=== PATIENT | male | born 1935 | race Caucasian/White ===

== ENCOUNTER 2017-06-29 05:31 | Inpatient (IN) | payer MEDICARE, SELFPAY ==
[2017-06-29] VITALS (19 sets, daily range): BP systolic 129–149; BP diastolic 71–94; PULSE 68–76; RESP 15–24; TEMP 36.5–36.8; O2SAT 97–99; BMI 32.9; BMI 31.4
--- NOTE | 2017-06-29 05:34 | EKG12_ITS ---
Test Reason : TIA/CVA Blood Pressure : / mmHG Vent. Rate : 071 BPM Atrial Rate : 035 BPM P-R Int : 000 ms QRS Dur : 166 ms QT Int : 522 ms P-R-T Axes : 000 -58 110 degrees QTc Int : 567 ms Ventricular-paced rhythm with occasional Premature ventricular complexes Abnormal ECG Confirmed by FRANC LUCAS, DAVY ([id number]), editorial writer DARIEL IRELAND ([id number]) on 07/01/2017 1:51:49 PM Referred By: MISHA Confirmed By:DAVY BRUNER MD
--- NOTE | 2017-06-29 05:34 | CT_ITS ---
STUDY: CT BRAIN WITHOUT CONTRAST REASON FOR EXAM: Male, 81 years old. Slurred speech RADIATION DOSAGE (If Supplied By Facility): CTDIvol = ( 44.99 ) mGy, DLP = ( 815.79 ) mGycm TECHNIQUE: Transaxial CT imaging of the brain was performed without administration of intravenous contrast material. Individualized dose optimization techniques were used for this CT. COMPARISON: None. FINDINGS: Normal soft tissue structures. Normal calvarium. Normal size ventricles and extra-axial spaces for the patient's age. Normal white matter tracts of the cerebral hemispheres. Normal basal ganglia and thalami. Normal brainstem. Normal cerebellum. There is no intracranial hemorrhage. There are no findings of an acute ischemic infarction. Inflammatory changes in the right frontal, right ethmoid air cells, both maxillary sinuses in the right sphenoid sinus CT/Brain/Head without Contrast IMPRESSION: No acute findings in the brain. Inflammatory changes in the paranasal sinuses Electronically Signed: Patrick Israel, at 6:47 EST Tel , Service support ,
--- NOTE | 2017-06-29 05:42 | ED.VISSUMM ---
- ER Visit Summary Date of Service: 06/29/17 Chief Complaint: Strokelike symptoms History of Present Illness: The patient is a 81 M with significant cardiac history including atrial fibrillation who is anticoagulated on Pradaxa presents to the emergency department with strokelike symptoms. The patient apparently woke at approximately 445 this morning. He had complained to his that he had a cramp in his leg. When he got out of bed to stand, he fell. He did not strike his head. She helped him up and he had significant clumsiness of his left arm. He also had slurred speech. He was having a difficult time ambulating because of weakness in his left leg also. Squad arrived. By the time squad had arrived, the patient had no symptoms per squad. Per the , his speech was markedly improved. He also had resolution of the weakness of his left side. The patient has no history of prior stroke. He has been in his normal state of health. He denies any recent change in his medications. Physical Examination: Vital signs reviewed General: Well-nourished, well-developed Head: Normocephalic, atraumatic Eyes: Pupils equal and reactive, extraocular muscles intact Neck, supple, no lymphadenopathy Heart: Regular rate and rhythm Respiratory: No distress, clear bilaterally Abdomen: Soft, nontender, nondistended, no peritoneal signs Back: Nontender Extremities: Nontender, no edema, no cords Skin: Normal color no rash Neuro: Alert and oriented, and has a mild left facial droop and mild dysarthria. There is no appreciable weakness. There is no ataxia or sensory deficit. His NIH is 2. Test Results: KG demonstrates paced rhythm. Labs relatively unremarkable. Chest x-ray shows mild cephalization and pulmonary edema. There is stable scarring at the left base unchanged from prior. Emergency Department Course and Treatment: The patient presents with symptoms of stroke. However, some of the symptoms have already improved. The patient was sent for immediate head CT. This shows no evidence of acute hemorrhage. Screening labs were obtained and reviewed. The patient has an NIH of 2. He did not meet criteria for stroke team activation or TPA especially as he is already fully anticoagulated on Pradaxa. Patient did have some waxing and waning of symptoms with some increased ataxia of the left arm and transient confusion. At this time, I do feel that the patient will likely require admission for MRI and neurology consultation. Patient does have multiple stroke risk factors. Patient was discussed with the hospitalist and will be admitted. Treatment Plan: [] Disposition: Admission Impression: 1. Left-sided facial droop 2. Left arm weakness-resolved 3. Dysarthria This note was generated with [employer] dictation software. It may contain incorrect words, spelling, and punctuation that were not noted in review of the chart prior to signing ED Disposition - Plan for ED Patient: Chief Complaint: Neuro S/Sx Referrals: Torin Noyola MD [Primary Care Provider] -
[2017-06-29 05:45] LABS: Bedside Glucose 134 mg/dL (70-110)
--- NOTE | 2017-06-29 05:50 | RAD_ITS ---
STUDY: X-RAY CHEST REASON FOR EXAM: Male, 81 years old. Cough TECHNIQUE: One view COMPARISON: September 19, 2015 FINDINGS: There is cardiomegaly with an ICD in place. Median sternotomy wires are noted. There is central vascular congestion and a small left-sided pleural effusion. The right costophrenic angle is clear. Normal visualized thoracic spine. Normal visualized ribs, clavicles, and shoulders. There is no demonstrated abnormality of the visualized soft tissue structures of the upper abdomen. RAD/Chest 1 View IMPRESSION: Cardiomegaly with central vascular congestion and a small left-sided effusion. No pneumonia Electronically Signed: Patrick Israel, at 6:53 EST Tel , Service support ,
[2017-06-29 05:54] LABS: Absolute Lymphocyte Count 0.77 X10^3/ul (0.83-4.51); Absolute Neutrophil Count 6.3 X10^3/uL (2.0-7.7); Basophil# 0.04 X10^3/uL; Basophil% 0.5 % (0-1); Eosinophil# 0.23 X10^3/uL; Eosinophils% 2.9 % (0-5); Hemoglobin 13.2 g/dl (13.0-16.5); Lymphocyte # 0.77 X10^3/ul (4.0); Lymphocyte % 9.7 % (19-41); Mean Corpuscular Hgb 30.8 pg (27.0-32.0); Mean Corpuscular Volume 93.2 fL (80-94); Mean Platelet Vol. 10.3 fl (6.2-12.0); Monocyte# 0.58 X10^3/uL; Monocyte% 7.3 % (0-10); Neutrophil % 79.5 % (47-70); Platelet Count 234 K/mm3 (150-450); RBC Distribution Width CV 13.9 % (11.6-14.6); RBC Distribution Width SD 45.8 fl (35.1-43.9); Red Blood Count 4.29 M/mm3 (4.6-6.2); White Blood Count 7.9 K/mm3 (4.4-11.0)
[2017-06-29 06:03] LABS: POSITIVE COUNT NO; POSITIVE DIFFERENTIAL NO; POSITIVE MORPHOLOGY NO
[2017-06-29 06:14] LABS: Prothrombin Time (Protime)PT. 12.9 SECONDS (11.7-14.9)
[2017-06-29 06:27] LABS: Anion Gap 8 (5-15); BUN 17 mg/dL (7-18); BUN/Creat Ratio 16.3 RATIO (10-20); Calcium,Total 8.4 mg/dL (8.5-10.1); Chloride 103 mmol/L (98-107); Creatinine, Serum 1.04 mg/dL (0.70-1.30); EST Glomerular Filtration Rate 73 mL/min (>60); Est Glom Filt Rate - Afr Amer 88 mL/min (>60); Estimated Creatinine Clearance 54.81 ml/min; Glucose 142 mg/dL (74-106); Potassium 4.2 mmol/L (3.5-5.1); Sodium Level 138 mmol/L (136-145)
--- NOTE | 2017-06-29 07:15 | PCM.HP.STD ---
Problem List (1) Hypertension Status: Chronic (2) Coronary artery disease Status: Chronic (3) Chronic atrial fibrillation Status: Chronic (4) Chronic anticoagulation Status: Chronic Comment: Pradaxa (5) GERD (gastroesophageal reflux disease) Status: Chronic (6) Obesity Status: Chronic (7) Systolic congestive heart failure Status: Chronic (8) Hyperbilirubinemia Status: Acute (9) COPD (chronic obstructive pulmonary disease) Status: Chronic (10) History of coronary artery bypass graft Status: Chronic Comment: 2004 (11) Hearing loss Status: Acute (12) Former smoker Status: Chronic (13) History of PTCA 1 Status: Acute Comment: Abdiel/Michelle (14) Hyperlipidemia Status: Chronic (15) Osteoarthritis Status: Chronic (16) Obstructive sleep apnea Status: Chronic Comment: on BIPAP (17) 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 He normally ambulates without an assistive device and has not had a problem with falls in the past. His tells me he fell in the kitchen and could not get up by himself. With the assistance of her grandson they were able to get him to a chair in the living room. When he got up from the chair without assistance he again fell. He could not use his inhaler because his left arm was weak. His granddaughter also noted he had slurred speech which has improved significantly since coming to the hospital. Denied any changes in vision. He was not confused. He had a right posterior headache. He denied any history of prior TIA or CVA. CT brain in the emergency room showed no acute findings. Vital signs at presentation to the emergency room were temperature 97.7, pulse rate 68, blood pressure 142/94, respiratory rate 21 and he was 97-99% saturated on room air. CBC and BMP were unremarkable. Random blood sugar was 142. Total bilirubin is elevated at 2.7 but this is chronic. AST, ALT and alk phos were within normal limits. Troponin ?2 has been negative. He admits to me that he does NOT take his ASA daily....he takes it PRN for neck pain. He has persistent LUE weakness and a mild left facial droop with mild dysarthria. He is being admitted to the hospital with a diagnosis of probable CVA. Past Medical History Past Medical History (Chronic Problems): Chronic Problems Hypertension (Chronic) Coronary artery disease (Chronic) Chronic atrial fibrillation (Chronic) Chronic anticoagulation (Chronic) Pradaxa GERD (gastroesophageal reflux disease) (Chronic) Obesity (Chronic) Systolic congestive heart failure (Chronic) COPD (chronic obstructive pulmonary disease) (Chronic) History of coronary artery bypass graft (Chronic) 2004 Former smoker (Chronic) Hyperlipidemia (Chronic) Osteoarthritis (Chronic) Obstructive sleep apnea (Chronic) on BIPAP AICD (automatic cardioverter/defibrillator) present (Chronic) Allergies Penicillins [PCN] Allergy (Verified 06/29/17 05:39) Rash Sulfa (Sulfonamide Antibiotics) Allergy (Verified 06/29/17 05:39) Rash Home Medications: Ambulatory Orders Medication Instructions Recorded Amlodipine [Norvasc] 5 mg PO DAILY 09/15/13 Atorvastatin Calcium [Lipitor] 80 mg PO QHS 09/15/13 Carvedilol [Carvedilol] 12.5 mg PO DAILY 09/15/13 Dabigatran Etexilate Mesylate 150 mg PO BID 09/15/13 [Pradaxa] Furosemide [Lasix] 20 mg PO DAILY 09/15/13 Lisinopril [Lisinopril] 40 mg PO DAILY 09/15/13 Sotalol HCl [Sotalol] 80 mg PO BID 09/15/13 Zolpidem Tartrate [Ambien] 5 mg PO QHS PRN PRN 09/15/13 Albuterol Inhaler [Ventolin Hfa] 1 - 2 puff INHALATION Q4H PRN PRN 07/20/15 #1 inhaler Mometasone/Formoterol [Dulera 200 8.8 gm IH DAILY 07/20/15 Mcg/5 Mcg Inhaler] Surgical History: cataract - Bilateral, cholecystectomy, coronary bypass surgery, herniorrhaphy - Left inguinal, pacemaker implantation - PM/AICD, - - PTCA/MATTHEW Psychiatric History: No pertinent psych hx Lives: Spouse/ Significant Other Smoking Status: Former smoker - quit in 1974 Tobacco Use: Non-smoker Alcohol: Occasional Drugs: None - *Family History Sibling History Items: Cancer - brother with prostate CA Review of Systems Constitutional: Denies: Anorexia, Chills, Fever Eyes: Denies: Blurred vision, Redness, Vision Change HEENT: Reports: Difficulty Hearing, Hard of Hearing, Head Aches - R posterior, - - vertigo which is episodic and is associated with tinnitus and hearing loss. Denies: Difficulty Swallowing, Dysphasia, Sore Throat, Visual Changes Cardiovascular: Reports: Paroxysmal Noc. Dyspnea. Denies: Chest Pain, Light Headedness, Palpitations, Syncope Respiratory: Denies: Cough, Shortness of Breath Gastrointestinal: Denies: Abdominal Pain, Nausea, Vomiting Genitourinary: Denies: Dysuria Musculoskeletal: Reports: Neck Pain - chronic and due to OA......no radiation of pain into the arms. Denies: Joint Pain, Joint Tenderness Skin: Denies: Jaundice, Rash, Wounds Neurological: Reports: Balance problems, Slurred speech, Focal weakness - L leg and the left arm. Denies: Numbness, Tingling, Seizures Psychiatric: Denies: Anxiety, Depression, Homicidal Ideations, Suicidal Ideations Endocrine: Denies: Change in Body Habitus, Hx of Irradiation Hematologic/ Lymphatic: Reports: Easy Bruising - on Pradaxa. Denies: Hx of blood clot VTE Information - Inpt Only VTE Present on Admission: No VTE Mechan Device Prophylaxis: Knee High BRYN Hose VTE Pharm Prophylaxis ordered?: No Reason prophylaxis not ordered:: Treatment Not Indicated - he is on full dose anticoagulation for AFIB Patient Problems: Active and Suspected Problems Hyperbilirubinemia (Acute) Hearing loss (Acute) History of PTCA 1 (Acute) Abdiel/[place] 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) Tinnitus, hearing loss and vertigo - Physical Exam General: Alert, Oriented x3, Cooperative, No apparent distress, Well developed, Well nourished HEENT: Atraumatic, PERRLA, EOMI, Normocephalic, - - mild droop Left corner of the mouth Oral: Dry Mucosa Neck: Supple, No JVD, Negative Carotid Bruits Lungs: Clear to auscultation, No rhonchi, No wheeze, No rales Cardiovascular: Normal S1, Normal S2, No murmurs, Irregular Rate, No rub noted, No Gallop Abdomen: Bowel Sounds Present, Soft, Non Tender, Non-Distended, Obese Extremities: No clubbing, No cyanosis, No edema Skin: No rashes, No breakdown Musculoskeletal: No Muscle Wasting Neurological: Facial Droop - left, - - He has weakness of the LUE 4/5 with LUE neglect Psych/Mental Status: Normal Affect, Appropriate Vital Signs Temp Pulse Resp BP Pulse Ox 97.7 F L 72 23 H 147/86 H 98 06/29/17 05:32 06/29/17 07:02 06/29/17 07:02 06/29/17 07:02 06/29/17 07:02 Oxygen Delivery Method Room Air Weight: 216 lb 11.43 oz Body Mass Index (BMI) 32.9 Finger Stick Blood Glucose 134 Laboratory Tests Past 24 Hrs 06/29/17 06/29/17 06/29/17 05:45 05:45 05:45 WBC 7.9 RBC 4.29 L Hgb 13.2 Hct 40.0 MCV 93.2 MCH 30.8 MCHC 33.0 RDW 13.9 RDW Differential 45.8 H Plt Count 234 MPV 10.3 Immature Gran % (Auto) 0.100 Neut % (Auto) 79.5 H Lymph % (Auto) 9.7 L [place] % (Auto) 7.3 Eos % (Auto) 2.9 Baso % (Auto) 0.5 Absolute Neuts (auto) 6.3 Absolute Lymphs (auto) 0.77 L Total Counted Not Reportable PT 12.9 INR 1.0 APTT 20.0 L Sodium 138 Potassium 4.2 Chloride 103 Carbon Dioxide 27.0 Anion Gap 8 BUN 17 Creatinine 1.04 Estim Creat Clear Calc 54.81 Est GFR (MDRD) Af Amer 88 Est GFR (MDRD) Non-Af 73 BUN/Creatinine Ratio 16.3 Glucose 142 H Calcium 8.4 L Troponin I < 0.02 POC Glucose 06/29/17 05:38 POC Glucose 134 H Assessment/Plan Active and Suspected Problems Hyperbilirubinemia (Acute) Hearing loss (Acute) History of PTCA 1 (Acute) Abdiel/[place] 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) Tinnitus, hearing loss and vertigo Impressions 1. 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 LUE weakness 3. CAD with hx of CABG in 2003 and PTCA/MATTHEW after the CABG 4. hx of [place] on the table during CABG, has chronic systolic CHF 5. PM/AICD presence - called about the PM and he CANNOT have MRI......no significant arterial stenosis on the CTA of the head or neck 6. GERD 7. chronic hyperbilirubinemia 8. HTN 9. dehydration 10. obesity ASA and Plavix for now and will discuss with Dr. 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
--- NOTE | 2017-06-29 08:25 | ECHOD_ITS ---
Reason For Study: TIA/CVA Procedure This was a 2D Doppler, Color Flow transthoracic echocardiogram. Exam performed in department. Left Ventricle Normal LV size. Mild concentric left ventricular hypertrophy. The estimated ejection fraction is 35 %. Moderate segmental systolic dysfunction (see wall motion). [place] : Akinetic. Posterior-Basal: Normal. Mid-Posterior: Normal. Global hypokinesis for rest of [place]. Right Ventricle Normal RV size. ICD or pacer leads identified within the right ventricle. Normal systolic function. Atria The left atrium is severely enlarged. The right atrium is mildly enlarged. Mitral Valve Normal mitral valve. Mild-Moderate (1-2+) eccentric mitral valve insufficiency. Tricuspid Valve Normal tricuspid valve. Mild to moderate (1-2+) tricuspid valve insufficiency. Pulmonary artery systolic pressure is 54 mmHg. Moderate pulmonary hypertension. Aortic Valve Trisinus/trileaflet aortic valve. Mild focal aortic valve calcification. Mild (1+) eccentric aortic valve insufficiency. Pulmonic Valve Normal pulmonic valve. Great Vessels Normal aortic root. The pulmonary artery is normal size. Normal inferior vena cava. Pericardium/Pleural No pericardial effusion. Medication Definity deferred due to PHTN. Performed a rapid injection of agitated mix of 9 cc saline and 1cc air to assess for atrial septal defect. MMode/2D Measurements & Calculations LVIDd: 6.3 cm IVSd: 1.3 cm LVOT diam: 2.2 cm LVIDs: 4.8 cm LVPWd: 1.3 cm LVOT area: 3.8 cm2 RVDd: 3.4 cm FS: 23.7 % Ao root diam: 3.4 cm LAV(MOD-bp): 151.6 ml LA A4 area: 44.8 cm2 LA dimension: 6.1 cm LAV(MOD-bp) Indexed: 71.8 ml/m2 LAV(MOD-sp2): 87.0 ml LAV(MOD-sp4): 203.3 ml RA A4 area: 26.3 cm2 Doppler Measurements & Calculations MV E max luis: 106.6 cm/sec Ao V2 max: 178.2 cm/sec LV V1 max: 100.7 cm/sec Ao max P.7 mmHg LV V1 max P.1 mmHg Ao V2 mean: 129.1 cm/sec LV V1 mean P.2 mmHg Ao mean P.3 mmHg LV V1 mean: 70.4 cm/sec Ao V2 VTI: 34.1 cm LV V1 VTI: 19.8 cm ABHIJEET(I,D): 2.2 cm2 ABHIJEET(V,D): 2.2 cm2 SV(LVOT): 75.8 ml PA V2 max: 77.6 cm/sec TR max luis: 347.3 cm/sec TR max P.3 mmHg Interpretation Summary Normal LV size. Mild concentric left ventricular hypertrophy. The estimated ejection fraction is 35 %. Mild-Moderate (1-2+) eccentric mitral valve insufficiency. Moderate pulmonary hypertension. Compared to the previous echo the EF is similar and the pulmonary pressures. Ordering Physician: Tiffany Lee Referring Physician: Torin Noyola M.D. Performed By: Antonette Colvin RDCS
--- NOTE | 2017-06-29 08:25 | CT_ITS ---
STUDY: CTA NECK WITH CONTRAST REASON FOR EXAM: Male, 81 years old. Slurred speech with left arm and left leg weakness. RADIATION DOSAGE (If Supplied By Facility): CTDIvol = ( 29.43 ) mGy, DLP = ( 813.80 ) mGycm TECHNIQUE: CT angiography with multi-detector data acquisition was performed from the aortic arch to the skull base following intravenous administration of 100 ml of Isovue 370 contrast. MIP images were reconstructed from the axial data set. Post-processing of the angiographic images was performed, with multiplanar reformation and 3D reconstruction. Individualized dose optimization techniques were used for this CT. COMPARISON: None. FINDINGS: AORTIC ARCH: There is atherosclerotic calcific plaque formation of the aortic arch and great vessels arising from the aortic arch, without a hemodynamically significant stenosis. There is a normal origin of the brachiocephalic, left common carotid, and left subclavian arteries. RIGHT CAROTID ARTERIES: Normal right common carotid artery (CCA). Normal right common carotid bulb. There is mild atherosclerotic plaque formation of the origin of the right internal carotid artery with less than 50% cross sectional diameter stenosis. Normal visualized cervical portion of the right internal carotid artery. Normal origin of the right external carotid artery (ECA). LEFT CAROTID ARTERIES: Normal left common carotid artery (CCA). Normal left common carotid bulb. There is mild atherosclerotic plaque formation of the origin of the left internal carotid artery with less than 50% cross sectional diameter stenosis. Normal visualized cervical portion of the left internal carotid artery. Normal origin of the left external carotid artery (ECA). VERTEBRAL ARTERIES: There is enhancement within the bilateral vertebral arteries with a small right vertebral artery, and a dominant left vertebral artery. There is opacification of the right sphenoid sinus as well as the right maxillary sinus and right ethmoid sinus. Opacification of the left maxillary sinus and partial opacification of the left ethmoid sinus. CT/CTA Neck W/WO Contrast IMPRESSION: Atherosclerotic calcific plaques at the origin of both the right and left internal carotid artery causing less than 50% narrowing. Pansinusitis. Electronically Signed: Geovany Pruett MD at 9:36 EST Tel [phone], Service support ,
--- NOTE | 2017-06-29 08:25 | CT_ITS ---
STUDY: CTA OF THE BRAIN REASON FOR EXAM: Male, 81 years old. Slurred speech. Left arm and left leg weakness. RADIATION DOSAGE (If Supplied By Facility): CTDIvol = ( 29.43 ) mGy, DLP = ( 813.80 ) mGycm TECHNIQUE: CT angiography was performed with a multi-detector CT scanner. Data acquisition was obtained from the skull base through the vertex following intravenous administration of ml of . MIP images were reconstructed from the axial data set. Post-processing of the angiographic images was performed, with multiplanar reformation and 3D reconstruction. Individualized dose optimization techniques were used for this CT. COMPARISON: None. FINDINGS: Normal bilateral petrous carotid arteries. There is calcified plaque formation of the right cavernous carotid artery, without a cross-sectional luminal stenosis. There is calcified plaque formation of the left cavernous carotid artery, without a cross-sectional luminal stenosis. Normal right A1 segments of the anterior cerebral artery. Normal left A1 segments of the anterior cerebral artery. Normal intact anterior communicating artery (ACOM). Normal bilateral A2 segments of the anterior cerebral arteries. Normal right M1 and M2 segments of the middle cerebral arteries, with a normal M1 bifurcation. Normal left M1 and M2 segments of the middle cerebral arteries, with a normal M1 bifurcation. Normal right posterior communicating artery (PCOM). Normal left posterior communicating artery (PCOM). Normal bilateral vertebral arteries. Normal basilar artery with a normal basilar bifurcation. The visualized bilateral superior cerebellar (SCA) arteries are normal. Normal bilateral P1, P2 and visualized P3 segments of the posterior cerebral arteries. There is no demonstrated aneurysm of the [place]. Pansinusitis. CT/CTA Head W/WO Contrast IMPRESSION: Normal [place] without a demonstrated aneurysm or hemodynamically significant stenosis. Pansinusitis. Electronically Signed: Geovany Pruett MD at 9:38 EST Tel [phone], Service support ,
[2017-06-29 09:11] LABS: AST(SGOT) 24 U/L (15-37); Alanine Aminotransfer ALT/SGPT 22 U/L (16-61); Albumin, Serum 3.5 g/dL (3.2-5.0); Alkaline Phosphatase 86 U/L (45-117); Bilirubin, Direct 0.35 mg/dL (0.00-0.30); Cholesterol 109 mg/dL (200); Globulin 3.6 g/dL (2.2-4.2); High Density Lipoprotein 51 mg/dL; Protein, Total 7.1 g/dL (6.4-8.2); Thyroid Stim Hormone (TSH) 5.19 uIU/mL (0.358-3.74); Triglycerides 115 mg/dL; Very Low Density Lipoprotein 23 mg/dL (5-40)
[2017-06-29] MEDS: 0.9% NaCl Peripheral Flush Adult/Peds IV (10:34)
[2017-06-29] MEDS: 0.9% Normal Saline 1,000 ML 100 ML IV (10:34)
[2017-06-29] MEDS: Aspirin 81 MG TAB.CHEW PO (10:56)
[2017-06-29] MEDS: Clopidogrel Bisulfate 75 MG Tablet PO (10:57)
[2017-06-29] MEDS: Sotalol Hydrochloride 80 MG Tablet PO ×2 (10:57→21:06)
[2017-06-29] MEDS: Carvedilol 12.5 MG Tablet PO ×2 (10:57→21:06)
[2017-06-29] MEDS: Enoxaparin 100 MG/ML Syringe SC ×2 (11:01→21:09)
[2017-06-29 13:11] LABS: LDH 173 U/L (87-241)
[2017-06-29 13:44] LABS: Hemoglobin A1c 6.1 % (4.2-6.3)
[2017-06-29] MEDS: Albuterol 2.5 MG/3 ML VIAL.NEB. INHALATION ×2 (13:45→21:00)
--- NOTE | 2017-06-29 14:32 | CASEMGMT ---
See RN CM Assessment Link. DC PLAN: return home pending PT/OT recommendations. is able to assist with care needs and transportation. Per , pt was independent prior to admission, is now using a cane for ambulation. Marco BARAKAT RN AC
--- NOTE | 2017-06-29 14:32 | PCM.CONS.GEN ---
Problem List (1) Difficulty walking Status: Acute (2) Speech disturbance Status: Acute Qualifiers: Speech disturbance type: slurred speech Qualified Code(s): R47.81 - Slurred speech (3) TIA (transient ischemic attack) Status: Acute Qualifiers: Transient cerebral ischemia type: unspecified Qualified Code(s): G45.9 - Transient cerebral ischemic attack, unspecified Reason for Consult Date of Consultation: 06/29/17 Reason for Consultation: TIA, slurred speech and difficulty walking, fall History of Present Illness: The patient is a 81 year old CM with PMH HTN, HLD, Afib on Pradaxa, CAD s/p stents, CABG, s/p AICD, COPD, OTILIA admitted following a fall, with slurred speech and difficulty walking. Per patient and his , patient got up this morning, had a fall in the kitchen, was later put on the bed by his and grandson, noticed there was slurred speech, he was wobbly and had difficulty walking and later had another fall in the living room, following which paramedics were called. Per ED documentation NIHSS was 2 on admission, his symptoms have continued to improve and at present his speech is almost back to his baseline and was able to ambulate with the cane per patient. At baseline he does not use cane or walker to ambulate, denies any falls, does not need any assistance for his ADLs, does drive. He is on Pradaxa for AFib, has been on the same for many years, he has told to take ASA but takes it as needed and may sometimes forget to take Pradaxa. CT head done on admission reported nothing acute, CTA head/neck reported < 50% stenosis B/L ICA. [] Past Medical History Past Medical History (Chronic Problems): Chronic Problems Hypertension (Chronic) Coronary artery disease (Chronic) Chronic atrial fibrillation (Chronic) Chronic anticoagulation (Chronic) Pradaxa GERD (gastroesophageal reflux disease) (Chronic) Obesity (Chronic) Systolic congestive heart failure (Chronic) COPD (chronic obstructive pulmonary disease) (Chronic) History of coronary artery bypass graft (Chronic) 2003 Former smoker (Chronic) Hyperlipidemia (Chronic) Osteoarthritis (Chronic) Obstructive sleep apnea (Chronic) on BIPAP AICD (automatic cardioverter/defibrillator) present (Chronic) Allergies Penicillins [PCN] Allergy (Verified 06/29/17 05:39) Rash Sulfa (Sulfonamide Antibiotics) Allergy (Verified 06/29/17 05:39) Rash Home Medications: Ambulatory Orders Medication Instructions Recorded Amlodipine [Norvasc] 5 mg PO DAILY 09/15/13 Atorvastatin Calcium [Lipitor] 80 mg PO QHS 09/15/13 Carvedilol [Carvedilol] 12.5 mg PO DAILY 09/15/13 Dabigatran Etexilate Mesylate 150 mg PO BID 09/15/13 [Pradaxa] Furosemide [Lasix] 20 mg PO DAILY 09/15/13 Lisinopril [Lisinopril] 40 mg PO DAILY 09/15/13 Sotalol HCl [Sotalol] 80 mg PO BID 09/15/13 Zolpidem Tartrate [Ambien] 5 mg PO QHS PRN PRN 09/15/13 Albuterol Inhaler [Ventolin Hfa] 1 - 2 puff INHALATION Q4H PRN PRN 07/20/15 #1 inhaler Mometasone/Formoterol [Dulera 200 8.8 gm IH DAILY 07/20/15 Mcg/5 Mcg Inhaler] Surgical History: cataract - Bilateral, cholecystectomy, coronary bypass surgery, herniorrhaphy - Left inguinal, pacemaker implantation - PM/AICD, - - PTCA/MATTHEW Psychiatric History: No pertinent psych hx Lives: Spouse/ Significant Other Smoking Status: Former smoker - quit in 1974 Tobacco Use: Non-smoker Alcohol: Occasional Drugs: None - *Family History Sibling History Items: Cancer - brother with prostate CA Review of Systems Constitutional: Reports: - - complete ROS negative except as documented in HPI Patient Problems: Active and Suspected Problems Hyperbilirubinemia (Acute) Hearing loss (Acute) History of PTCA 1 (Acute) Abdiel/[place] 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) Tinnitus, hearing loss and vertigo Difficulty walking (Acute) Speech disturbance (Acute) TIA (transient ischemic attack) (Acute) - Physical Exam General: Alert, Oriented x3, Cooperative HEENT: Atraumatic, PERRLA, EOMI, Normocephalic Neck: Supple, No JVD, Negative Carotid Bruits Lungs: Clear to auscultation, Normal air movement Cardiovascular: Regular rate Abdomen: Bowel Sounds Present, Soft, Non Tender Extremities: No edema, Capillary Refill Less than 3 Seconds Skin: No rashes, No breakdown Musculoskeletal: No Tenderness to Palpation of Joints or Extremities Neurological: - - consious, alert, CN 2-12 grossly intact, power 5/5 all 4 limbs, no sensory loss, no cerebellar signs, Reflexes + B/L B/S/T/K/A, no dysarthria at present, gait deferred, NIHSS 0 at present. Psych/Mental Status: Normal Affect, Appropriate Vital Signs Temp Pulse Resp BP Pulse Ox 98.2 F 71 16 129/71 H 97 06/29/17 12:15 06/29/17 12:15 06/29/17 12:15 06/29/17 12:15 06/29/17 12:15 Oxygen Delivery Method Room Air Weight: 93.8 kg Body Mass Index (BMI) 31.4 Intake and Output for Last 24 Hours 06/27/17 06/28/17 06/29/17 23:59 23:59 23:59 Intake Total 297 / 297 Balance 297 / 297 Laboratory Tests Past 24 Hrs 06/29/17 06/29/17 06/29/17 08:35 12:45 12:45 Haptoglobin Pending Total Bilirubin 2.70 H Direct Bilirubin 0.35 H AST 24 ALT 22 Alkaline Phosphatase 86 Lactate Dehydrogenase 173 Troponin I < 0.02 < 0.02 Total Protein 7.1 Albumin 3.5 Globulin 3.6 Triglycerides 115 Cholesterol 109 LDL Cholesterol 35 VLDL Cholesterol 23 HDL Cholesterol 51 TSH 5.19 H Assessment/Plan Active and Suspected Problems Hyperbilirubinemia (Acute) Hearing loss (Acute) History of PTCA 1 (Acute) Abdiel/[place] 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 Per patient and his , patient got up this morning, had a fall in the kitchen, was later put on the bed by his and grandson, noticed there was slurred speech, he was wobbly and had difficulty walking and later had another fall in the living room, following which paramedics were called. Per ED documentation NIHSS was 2 on admission, his symptoms have continued to improve and at present his speech is almost back to his baseline and was able to ambulate with the cane per patient. At baseline he does not use cane or walker to ambulate, denies any falls, does not need any assistance for his ADLs, does drive. He is on Pradaxa for AFib, has been on the same for many years, he has told to take ASA but takes it as needed and may sometimes forget to take Pradaxa. CT head done on admission reported nothing acute, CTA head/neck reported < 50% stenosis B/L ICA Impression Probable TIA Plan -CT head and CTA head/neck reviewed -Recommend repeat CT head in 24 hrs in AM tomorrow -TTE-EF 35%, severely enlarged LA -LDL-35, Obb4g-5.1 -Recommend continue home dose of Pradaxa 150 mg PO BID. Patient counseled to take medication compliantly. -On ASA at baseline but has not been taking it compliantly -Patient counseled to take medications compliantly -Discontinue Plavix which has been started since admission -PT/OT/ST -GI/DVT prophylaxis -Fall precautions -Follow up with Neurology as outpatient in 2-3 weeks -Please call with questions if any -Thank you for allowing us to participate in patient's care and management I spent 60 minutes taking history, doing physical examination, reviewing medical records, coordinating care and counseling the patient and available family. Code Visit Inpatient E&M: 93923 Init Hosp L3
[2017-06-29] MEDS: Atorvastatin Calcium 80 MG Tablet PO (21:06)
[2017-06-29] MEDS: Budesonide Respules 0.5 MG/2 ML AMPUL.NEB. INHALATION (21:10)
[2017-06-30] VITALS (10 sets, daily range): BP systolic 123–153; BP diastolic 68–80; PULSE 70–77; RESP 16–18; TEMP 36.7–37.3; O2SAT 94–98
[2017-06-30] MEDS: Albuterol 2.5 MG/3 ML VIAL.NEB. INHALATION ×2 (07:55→13:36)
[2017-06-30] MEDS: Budesonide Respules 0.5 MG/2 ML AMPUL.NEB. INHALATION (07:55)
[2017-06-30] MEDS: Aspirin 81 MG TAB.CHEW PO (09:13)
[2017-06-30] MEDS: Carvedilol 12.5 MG Tablet PO (09:13)
[2017-06-30] MEDS: Sotalol Hydrochloride 80 MG Tablet PO (09:13)
[2017-06-30] MEDS: Enoxaparin 100 MG/ML Syringe SC (09:17)
[2017-06-30 11:02] LABS: Haptoglobin 198 mg/dL (34-200)
--- NOTE | 2017-06-30 14:41 | CT_ITS ---
STUDY: CT BRAIN WITHOUT CONTRAST REASON FOR EXAM: Male, 81 years old. Left arm weakness. Slurred speech. RADIATION DOSAGE (If Supplied By Facility): CTDIvol = ( 44.99 ) mGy, DLP = ( 829.85 ) mGycm TECHNIQUE: Transaxial CT imaging of the brain was performed without administration of intravenous contrast material. Individualized dose optimization techniques were used for this CT. COMPARISON: Head CT yesterday FINDINGS: Normal soft tissue structures. Normal calvarium. There is moderate cerebral atrophy with widening of the extra-axial spaces and ventricular dilatation. There are areas of decreased attenuation within the white matter tracts of the supratentorial brain, consistent with microvascular disease changes. Normal basal ganglia and thalami. Normal brainstem. There is mild cerebellar atrophy. There is no intracranial hemorrhage. As compared to examination from yesterday, there is been development of lee/white matter differentiation loss in the right temporal lobe compatible with acute ischemia. There is mucoperiosteal inflammatory disease of the paranasal sinuses consistent with moderate chronic sinusitis. CT/Brain/Head without Contrast IMPRESSION: Development of acute ischemia in the region of the right temporal lobe with lee/white matter differentiation loss. MRI brain is recommended to further evaluate the extent of stroke. N.B. : The above information has been verbally conveyed by Jonathon Woodward DO to Dr. Tiffany Lee, Referring Physician, on 06/30/2017 15:40:27 (ET). Electronically Signed: Jonathon Woodward DO at 15:40 EST Tel , Service support , N.B. : The above information has been verbally conveyed by Jonathon Woodward DO to Dr. Tiffany Lee, Referring Physician, on 06/30/2017 15:40:27 (ET).
--- NOTE | 2017-06-30 15:41 | PCM.DC ---
- Discharge Diagnoses Current Active Problems: Current Active and Chronic Problems Hypertension (Chronic) Coronary artery disease (Chronic) Chronic atrial fibrillation (Chronic) Chronic anticoagulation (Chronic) Pradaxa GERD (gastroesophageal reflux disease) (Chronic) Obesity (Chronic) Systolic congestive heart failure (Chronic) Hyperbilirubinemia (Acute) COPD (chronic obstructive pulmonary disease) (Chronic) History of coronary artery bypass graft (Chronic) 2004 Hearing loss (Acute) Former smoker (Chronic) History of PTCA 1 (Acute) Abdiel/[place] Hyperlipidemia (Chronic) Osteoarthritis (Chronic) Obstructive sleep apnea (Chronic) on BIPAP AICD (automatic cardioverter/defibrillator) present (Chronic) Difficulty walking (Acute) Speech disturbance (Acute) TIA (transient ischemic attack) (Acute) You will use the following diet at home:: Cardiac Your food should be the consistency of: Regular Your liquids should be the consistency of: Regular/Thin Discharge Activity: Return to Normal Activity Call your doctor if you observe: Fever of 101 or Higher, Shortness of breath, Dizziness, Fainting spells, Swelling in the ankles, Chest pain, Increased palpitations (irregular heartbeat), - - unilateral loss of vision, weakness, numbness, slurred speech Additional Instructions: It is VERY important to take a baby aspirin dialy in addition to the Pradaxa to prevent strokes. Pradaxa is an anticoagulant and Aspirin is and antiplatelet drug. They work at different sites in the clotting process to prevent strokes and heart attacks. Pending Tests on Discharge: none Allergies/Adverse Reactions: Allergies Penicillins [PCN] Allergy (Verified 06/29/17 05:39) Rash Sulfa (Sulfonamide Antibiotics) Allergy (Verified 06/29/17 05:39) Rash Medications to take at Discharge Amlodipine [Norvasc] 5 mg PO DAILY 09/15/13 Atorvastatin Calcium [Lipitor] 80 mg PO QHS 09/15/13 Carvedilol 12.5 mg PO DAILY 09/15/13 Dabigatran Etexilate Mesylate [Pradaxa] 150 mg PO BID 09/15/13 Furosemide [Lasix] 20 mg PO DAILY 09/15/13 Lisinopril 40 mg PO DAILY 09/15/13 Sotalol HCl [Sotalol] 80 mg PO BID 09/15/13 Zolpidem Tartrate [Ambien] 5 mg PO QHS PRN PRN 09/15/13 Albuterol Inhaler [Ventolin Hfa] 1 - 2 puff INHALATION Q4H PRN PRN #1 inhaler 07/20/15 Mometasone/Formoterol [Dulera 200 Mcg/5 Mcg Inhaler] 8.8 gm IH DAILY 07/20/15 Aspirin [Aspirin, Baby] 81 mg PO DAILY@0800 tab.chew 06/30/17 Primary Care Physician: Torin Noyola MD [Primary Care Provider] - Please follow up with your Primary Care Physician in: 5-7 days Proposed Discharge Date: 06/30/17
--- NOTE | 2017-06-30 15:49 | DCINST_ITS ---
- Discharge Diagnoses Current Active Problems: Current Active and Chronic Problems Hypertension (Chronic) Coronary artery disease (Chronic) Chronic atrial fibrillation (Chronic) Chronic anticoagulation (Chronic) Pradaxa GERD (gastroesophageal reflux disease) (Chronic) Obesity (Chronic) Systolic congestive heart failure (Chronic) Hyperbilirubinemia (Acute) COPD (chronic obstructive pulmonary disease) (Chronic) History of coronary artery bypass graft (Chronic) 2004 Hearing loss (Acute) Former smoker (Chronic) History of PTCA 1 (Acute) Abdiel/[place] Hyperlipidemia (Chronic) Osteoarthritis (Chronic) Obstructive sleep apnea (Chronic) on BIPAP AICD (automatic cardioverter/defibrillator) present (Chronic) Difficulty walking (Acute) Speech disturbance (Acute) TIA (transient ischemic attack) (Acute) You will use the following diet at home:: Cardiac Your food should be the consistency of: Regular Your liquids should be the consistency of: Regular/Thin Discharge Activity: Return to Normal Activity Call your doctor if you observe: Fever of 101 or Higher, Shortness of breath, Dizziness, Fainting spells, Swelling in the ankles, Chest pain, Increased palpitations (irregular heartbeat), - - unilateral loss of vision, weakness, numbness, slurred speech Additional Instructions: It is VERY important to take a baby aspirin dialy in addition to the Pradaxa to prevent strokes. Pradaxa is an anticoagulant and Aspirin is and antiplatelet drug. They work at different sites in the clotting process to prevent strokes and heart attacks. Pending Tests on Discharge: none Allergies/Adverse Reactions: Allergies Penicillins [PCN] Allergy (Verified 06/29/17 05:39) Rash Sulfa (Sulfonamide Antibiotics) Allergy (Verified 06/29/17 05:39) Rash Medications to take at Discharge Amlodipine [Norvasc] 5 mg PO DAILY 09/15/13 Atorvastatin Calcium [Lipitor] 80 mg PO QHS 09/15/13 Carvedilol 12.5 mg PO DAILY 09/15/13 Dabigatran Etexilate Mesylate [Pradaxa] 150 mg PO BID 09/15/13 Furosemide [Lasix] 20 mg PO DAILY 09/15/13 Lisinopril 40 mg PO DAILY 09/15/13 Sotalol HCl [Sotalol] 80 mg PO BID 09/15/13 Zolpidem Tartrate [Ambien] 5 mg PO QHS PRN PRN 09/15/13 Albuterol Inhaler [Ventolin Hfa] 1 - 2 puff INHALATION Q4H PRN PRN #1 inhaler Mometasone/Formoterol [Dulera 200 Mcg/5 Mcg Inhaler] 8.8 gm IH DAILY 07/20/15 Aspirin [Aspirin, Baby] 81 mg PO DAILY@0800 tab.chew 06/30/17 Primary Care Physician: Torin Noyola MD [Primary Care Provider] - Please follow up with your Primary Care Physician in: 5-7 days Proposed Discharge Date: 06/30/17
--- NOTE | 2017-06-30 15:49 | PCM.DC.SUM ---
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) Tinnitus, hearing loss and vertigo - Secondary Discharge Diagnosis Chronic Problems Hypertension (Chronic) Coronary artery disease (Chronic) Chronic atrial fibrillation (Chronic) Chronic anticoagulation (Chronic) with Pradaxa GERD (gastroesophageal reflux disease) (Chronic) Obesity (Chronic) Systolic congestive heart failure (Chronic) Hyperbilirubinemia (Chronic) COPD (chronic obstructive pulmonary disease) (Chronic) History of coronary artery bypass graft (Chronic) 2004 Former smoker (Chronic) Hyperlipidemia (Chronic) Osteoarthritis (Chronic) Obstructive sleep apnea (Chronic) on BIPAP AICD (automatic cardioverter/defibrillator) present (Chronic) Ischemic cardiomyopathy with a 35% ejection fraction Severe left atrial enlargement and mild right atrial enlargement Mild to moderate mitral regurgitation Pulmonary hypertension with a PA pressure estimated at 54 on echocardiogram Hospital Course and Treatment Imaging Results: 06/30/17 14:41 CT Brain [Brain/Head without Contrast] [CT] Urgent Clinical Impression(s) from Imaging Studies Brain CT 06/29/17 05:34 IMPRESSION: No acute findings in the brain. Inflammatory changes in the paranasal sinuses Electronically Signed: Patrick Israel, at 6:47 EST Tel , Service support , Chest X-Ray 06/29/17 05:50 IMPRESSION: Cardiomegaly with central vascular congestion and a small left-sided effusion. No pneumonia Electronically Signed: Patrick Israel, at 6:53 EST Tel , Service support , Head CTA 06/29/17 08:25 IMPRESSION: Normal lime of [place] without a demonstrated aneurysm or hemodynamically significant stenosis. Pansinusitis. Electronically Signed: Geovany Pruett MD at 9:38 EST Tel [phone], Service support , Neck CTA 06/29/17 08:25 IMPRESSION: Atherosclerotic calcific plaques at the origin of both the right and left internal carotid artery causing less than 50% narrowing. Pansinusitis. Electronically Signed: Geovany Pruett MD at 9:36 EST Tel [phone], Service support , Brain CT 06/30/17 14:41 IMPRESSION: Development of acute ischemia in the region of the right temporal lobe with lee/white matter differentiation loss. MRI brain is recommended to further evaluate the extent of stroke. N.B. : The above information has been verbally conveyed by Jonathon Woodward DO to Dr. Tiffany Lee, Referring Physician, on 06/30/2017 15:40:27 (ET). Electronically Signed: Jonathon Woodward DO at 15:40 EST Tel , Service support , N.B. : The above information has been verbally conveyed by Jonathon Woodward DO to Dr. Tiffany Lee, Referring Physician, on 06/30/2017 15:40:27 (ET). Dr. Yan-neurology Operations: None Procedures: 2-D Echocardiogram Summary of Care Provided: [ The patient is a 81 year old M with a past medical history of hypertension, coronary artery disease, CABG, PTCA/MATTHEW, chronic systolic congestive heart failure, AICD/pacemaker placement, GERD, hyperbilirubinemia, obesity and hyperlipidemia who presented to the emergency room after having 2 falls at home. He normally ambulates without an assistive device and has not had a problem with falls in the past. His tells me he fell in the kitchen and could not get up by himself. With the assistance of her grandson they were able to get him to a chair in the living room. When he got up from the chair without assistance he again fell. He could not use his inhaler because his left arm was weak. His granddaughter also noted he had slurred speech which has improved significantly since coming to the hospital. Denied any changes in vision. He was not confused. He had a right posterior headache. He denied any history of prior TIA or CVA. CT brain in the emergency room showed no acute findings. Vital signs at presentation to the emergency room were temperature 97.7, pulse rate 68, blood pressure 142/94, respiratory rate 21 and he was 97-99% saturated on room air. CBC and BMP were unremarkable. Random blood sugar was 142. Total bilirubin is elevated at 2.7 but this is chronic. AST, ALT and alk phos were within normal limits. Cardiac enzymes were negative. He admited to me that he does NOT take his ASA daily....he takes it PRN for neck pain. He had persistent LUE weakness and a mild left facial droop with mild dysarthria. CTA of the head and neck showed no significant areas of arterial stenosis. He was admitted to the hospital with a diagnosis of probable CVA. An MRI and ECHO were ordered and also consult with neurology. The echocardiogram showed mild concentric left ventricular hypertrophy with an estimated ejection fraction of 35%. There was mild to moderate mitral valve insufficiency and he had moderate pulmonary HTN. The MRI could not be done because of his AICD so a follow head CT was done and showed development of acute ischemia in the region of the right temporal lobe with lee-white matter differentiation loss. While in the hospital he was seen and evaluated by PT and OT. Dr. Yan recommended daily ASA and recommended holding anticoagulation for 1 week due to the size of the defect on CT and risk for hemorrhagic conversion. He wanted the patient on Eliquis rather than Pradaxa and he was given a RX. He will start the Eliquis on July 05. At the time of DC he had no significant neurologic impairment. He will follow up with Dr. Yan in 3-[address] Noyola in 5-7 days[address] not drive until he is seen in the office by Dr. Yan. This note was generated with [employer] dictation software. It may contain incorrect words, spelling, and punctuation that were not noted in checking the note before signing. Discharge Activity: Return to Normal Activity Call your doctor if you observe: Fever of 101 or Higher, Shortness of breath, Dizziness, Fainting spells, Swelling in the ankles, Chest pain, Increased palpitations (irregular heartbeat), - - unilateral loss of vision, weakness, numbness, slurred speech Home Medications: Medications to take at Discharge Amlodipine [Norvasc] 5 mg PO DAILY 09/15/13 Atorvastatin Calcium [Lipitor] 80 mg PO QHS 09/15/13 Carvedilol 12.5 mg PO DAILY 09/15/13 Furosemide [Lasix] 20 mg PO DAILY 09/15/13 Lisinopril 40 mg PO DAILY 09/15/13 Sotalol HCl [Sotalol] 80 mg PO BID 09/15/13 Zolpidem Tartrate [Ambien] 5 mg PO QHS PRN PRN 09/15/13 Albuterol Inhaler [Ventolin Hfa] 1 - 2 puff INHALATION Q4H PRN PRN #1 inhaler 07/20/15 Mometasone/Formoterol [Dulera 200 Mcg/5 Mcg Inhaler] 8.8 gm IH DAILY 07/20/15 Apixaban [Eliquis] 5 mg PO BID #60 tab 06/30/17 Aspirin [Aspirin, Baby] 81 mg PO DAILY@0800 tab.chew 06/30/17 Following Prescrptions Were Given to Patient: Apixaban [Eliquis] 5 mg PO BID #60 tab Primary Care Physician: Torin Noyola MD [Primary Care Provider] - Please follow up with your Primary Care Physician in: 5-7 days Disposition: Home Minutes spent on discharge:: 40 Patient Condition:: Stable Meaningful Use Info Meaningful Use Diagnoses (Choose all that apply): Ischemic CVA - CVA Therapy Assessed for PT,OT and/or ST?: Yes - Ischemic Stroke Antithrombotic order at d/c?: Yes Dx of Atrial fib/flutter?: Yes Anticoagulant at discharge?: Yes Statins at discharge?: Yes Primary Dx Acute Ischemic CVA?: Yes IV tPA ordered during stay?: No Reason IV t-PA not ordered: Treatment not Indicated Code Visit Inpatient E&M: 31220 Disch Hosp
--- NOTE | 2017-06-30 15:55 | DS.PCM_ITS ---
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) Tinnitus, hearing loss and vertigo - Secondary Discharge Diagnosis Chronic Problems Hypertension (Chronic) Coronary artery disease (Chronic) Chronic atrial fibrillation (Chronic) Chronic anticoagulation (Chronic) with Pradaxa GERD (gastroesophageal reflux disease) (Chronic) Obesity (Chronic) Systolic congestive heart failure (Chronic) Hyperbilirubinemia (Chronic) COPD (chronic obstructive pulmonary disease) (Chronic) History of coronary artery bypass graft (Chronic) 2004 Former smoker (Chronic) Hyperlipidemia (Chronic) Osteoarthritis (Chronic) Obstructive sleep apnea (Chronic) on BIPAP AICD (automatic cardioverter/defibrillator) present (Chronic) Ischemic cardiomyopathy with a 35% ejection fraction Severe left atrial enlargement and mild right atrial enlargement Mild to moderate mitral regurgitation Pulmonary hypertension with a PA pressure estimated at 54 on echocardiogram Hospital Course and Treatment Imaging Results: 06/30/17 14:41 CT Brain [Brain/Head without Contrast] [CT] Urgent Clinical Impression(s) from Imaging Studies Brain CT 06/29/17 05:34 IMPRESSION: No acute findings in the brain. Inflammatory changes in the paranasal sinuses Electronically Signed: Patrick Israel, at 6:47 EST Tel , Service support , Chest X-Ray 06/29/17 05:50 IMPRESSION: Cardiomegaly with central vascular congestion and a small left-sided effusion. No pneumonia Electronically Signed: Patrick Israel, at 6:53 EST Tel , Service support , Head CTA 06/29/17 08:25 IMPRESSION: Normal [place] without a demonstrated aneurysm or hemodynamically significant stenosis. Pansinusitis. Electronically Signed: Geovany Pruett MD at 9:38 EST Tel [phone], Service support , Neck CTA 06/29/17 08:25 IMPRESSION: Atherosclerotic calcific plaques at the origin of both the right and left internal carotid artery causing less than 50% narrowing. Pansinusitis. Electronically Signed: Geovany Pruett MD at 9:36 EST Tel [phone], Service support , Brain CT 06/30/17 14:41 IMPRESSION: Development of acute ischemia in the region of the right temporal lobe with lee/white matter differentiation loss. MRI brain is recommended to further evaluate the extent of stroke. N.B. : The above information has been verbally conveyed by Jonathon Woodward DO to Dr. Tiffany Lee, Referring Physician, on 06/30/2017 15:40:27 (ET). Electronically Signed: Jonathon Woodward DO at 15:40 EST Tel , Service support , N.B. : The above information has been verbally conveyed by Jonathon Woodward DO to Dr. Tiffany Lee, Referring Physician, on 06/30/2017 15:40:27 (ET). Dr. Yan-neurology Operations: None Procedures: 2-D Echocardiogram Summary of Care Provided: [ The patient is a 81 year old M with a past medical history of hypertension , coronary artery disease, CABG, PTCA/MATTHEW, chronic systolic congestive heart failure, AICD/pacemaker placement, GERD, hyperbilirubinemia, obesity and hyperlipidemia who presented to the emergency room after having 2 falls at home. He normally ambulates without an assistive device and has not had a problem with falls in the past. His tells me he fell in the kitchen and could not get up by himself. With the assistance of her grandson they were able to get him to a chair in the living room. When he got up from the chair without assistance he again fell. He could not use his inhaler because his left arm was weak. His granddaughter also noted he had slurred speech which has improved significantly since coming to the hospital. Denied any changes in vision. He was not confused. He had a right posterior headache. He denied any history of prior TIA or CVA. CT brain in the emergency room showed no acute findings. Vital signs at presentation to the emergency room were temperature 97.7, pulse rate 68, blood pressure 142/94, respiratory rate 21 and he was 97-99% saturated on room air. CBC and BMP were unremarkable. Random blood sugar was 142. Total bilirubin is elevated at 2.7 but this is chronic. AST, ALT and alk phos were within normal limits. Cardiac enzymes were negative. He admited to me that he does NOT take his ASA daily....he takes it PRN for neck pain. He had persistent LUE weakness and a mild left facial droop with mild dysarthria. CTA of the head and neck showed no significant areas of arterial stenosis. He was admitted to the hospital with a diagnosis of probable CVA. An MRI and ECHO were ordered and also consult with neurology. The echocardiogram showed mild concentric left ventricular hypertrophy with an estimated ejection fraction of 35%. There was mild to moderate mitral valve insufficiency and he had moderate pulmonary HTN. The MRI could not be done because of his AICD so a follow head CT was done and showed development of acute ischemia in the region of the right temporal lobe with lee-white matter differentiation loss. While in the hospital he was seen and evaluated by PT and OT. Dr. Yan recommended daily ASA and recommended holding anticoagulation for 1 week due to the size of the defect on CT and risk for hemorrhagic conversion. He wanted the patient on Eliquis rather than Pradaxa and he was given a RX. He will start the Eliquis on July 05. At the time of DC he had no significant neurologic impairment. He will follow up with Dr. Yan in 3-[address] Noyola in 5-7 days. He will not drive until he is seen in the office by Dr. Yan. This note was generated with [employer] dictation software. It may contain incorrect words, spelling, and punctuation that were not noted in checking the note before signing. Discharge Activity: Return to Normal Activity Call your doctor if you observe: Fever of 101 or Higher, Shortness of breath, Dizziness, Fainting spells, Swelling in the ankles, Chest pain, Increased palpitations (irregular heartbeat), - - unilateral loss of vision, weakness, numbness, slurred speech Home Medications: Medications to take at Discharge Amlodipine [Norvasc] 5 mg PO DAILY 09/15/13 Atorvastatin Calcium [Lipitor] 80 mg PO QHS 09/15/13 Carvedilol 12.5 mg PO DAILY 09/15/13 Furosemide [Lasix] 20 mg PO DAILY 09/15/13 Lisinopril 40 mg PO DAILY 09/15/13 Sotalol HCl [Sotalol] 80 mg PO BID 09/15/13 Zolpidem Tartrate [Ambien] 5 mg PO QHS PRN PRN 09/15/13 Albuterol Inhaler [Ventolin Hfa] 1 - 2 puff INHALATION Q4H PRN PRN #1 inhaler Mometasone/Formoterol [Dulera 200 Mcg/5 Mcg Inhaler] 8.8 gm IH DAILY 07/20/15 Apixaban [Eliquis] 5 mg PO BID #60 tab 06/30/17 Aspirin [Aspirin, Baby] 81 mg PO DAILY@0800 tab.chew 06/30/17 Following Prescrptions Were Given to Patient: Apixaban [Eliquis] 5 mg PO BID #60 tab Primary Care Physician: Torin Noyola MD [Primary Care Provider] - Please follow up with your Primary Care Physician in: 5-7 days Disposition: Home Minutes spent on discharge:: 40 Patient Condition:: Stable Meaningful Use Info Meaningful Use Diagnoses (Choose all that apply): Ischemic CVA - CVA Therapy Assessed for PT,OT and/or ST?: Yes - Ischemic Stroke Antithrombotic order at d/c?: Yes Dx of Atrial fib/flutter?: Yes Anticoagulant at discharge?: Yes Statins at discharge?: Yes Primary Dx Acute Ischemic CVA?: Yes IV tPA ordered during stay?: No Reason IV t-PA not ordered: Treatment not Indicated Code Visit Inpatient E&M: 87716 Disch Hosp
[2017-06-30] MEDS: Acetaminophen 325 MG Tablet 650 MG PO (16:27)
--- NOTE | 2017-06-30 16:30 | PCM.PN.NEU ---
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 Repeat CT head this morning shows acute right MCA stroke. - Physical Exam General: Alert, Oriented x3, Cooperative HEENT: Atraumatic, PERRLA, EOMI, Normocephalic Neck: Supple, No JVD, Negative Carotid Bruits Lungs: Clear to auscultation, Normal air movement Cardiovascular: Regular rate, No murmurs Abdomen: Bowel Sounds Present, Soft, Non Tender Extremities: No edema, Capillary Refill Less than 3 Seconds Skin: No rashes, No breakdown Musculoskeletal: No Tenderness to Palpation of Joints or Extremities Neurological: - - consious, alert, CN 2-12 grossly intact, power 5/5 all 4 extremities, no sensory loss, no pronator drift, no cerebellar signs, Reflexes + B/L B/S/T/K/A, gait normal, NIHSS 0 at present. Psych/Mental Status: Normal Affect, Appropriate Vital Signs Temp Pulse Resp BP Pulse Ox 99.1 F 70 16 123/68 H 94 06/30/17 08:49 06/30/17 13:36 06/30/17 13:36 06/30/17 08:49 06/30/17 08:49 Oxygen Delivery Method Room Air Weight: 93.8 kg Body Mass Index (BMI) 31.4 Intake and Output for Last 24 Hours 06/28/17 06/29/17 06/30/17 23:59 23:59 23:59 Intake Total 1573 / 1573 640 / 640 Output Total 300 / 300 600 / 600 Balance 1273 / 1273 40 / 40 Laboratory Tests Past 24 Hrs 06/29/17 06/29/17 12:45 20:22 Haptoglobin 198 Troponin I < 0.02 Assessment/Plan Active and Suspected Problems Ischemic cerebrovascular accident (CVA) (Acute) Hearing loss (Acute) History of PTCA 1 (Acute) Abdiel/Cowley 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 Per patient and his , patient got up this morning, had a fall in the kitchen, was later put on the bed by his and grandson, noticed there was slurred speech, he was wobbly and had difficulty walking and later had another fall in the living room, following which paramedics were called. Per ED documentation NIHSS was 2 on admission, his symptoms have continued to improve and at present his speech is almost back to his baseline and was able to ambulate with the cane per patient. At baseline he does not use cane or walker to ambulate, denies any falls, does not need any assistance for his ADLs, does drive. He is on Pradaxa for AFib, has been on the same for many years, he has told to take ASA but takes it as needed and may sometimes forget to take Pradaxa. CT head done on admission reported nothing acute, CTA head/neck reported < 50% stenosis B/L ICA Impression Acute embolic right MCA stroke Plan -CT head and CTA head/neck reviewed -Repeat CT head this AM shows acute Right MCA stroke (moderate to large in size) -MRI brain cannot be done due to AICD. -TTE-EF 35%, severely enlarged LA -LDL-35, Wcy1k-4.1 -Recommend changing Pradaxa to Eliquis. Recommend starting Eliquis 5 mg PO BID from 07/05/2017 (day 7 after stroke given the moderate size of the right MCA stroke) -On ASA at baseline but has not been taking it compliantly. Continue ASA -Recommend decreasing Lipitor to 40 mg PO q hs. -Patient counseled to take medications compliantly -Counseled not to drive till seen by Neurology in outpatient. -All the above discussed with hospitalist Dr. Lee. -PT/OT/ST -GI/DVT prophylaxis -Fall precautions -Follow up with Neurology as outpatient in 2 weeks. Will get repeat CT head at that time. -Please call with questions if any -Thank you for allowing us to participate in patient's care and management I spent 30 minutes taking history, doing physical examination, reviewing medical records, coordinating care and counseling the patient and available family.
== END 2017-06-30 17:26 | disposition home or self-care (01) | DRG 65 ==
LOC: ED 06:01 → PCU 07:22
PROVIDERS: Admitting Provider Internal Medicine; Emergency Provider Emergency Medicine; Family Provider Internal Medicine; PCP Internal Medicine; Visit Provider Internal Medicine
DX: I63.9 Cerebral infarction, unspecified (principal); G81.94 Hemiplegia, unspecified affecting left nondominant side; I27.20 Pulmonary hypertension, unspecified; I50.22 Chronic systolic (congestive) heart failure; I11.0 Hypertensive heart disease with heart failure; E66.9 Obesity, unspecified; I25.10 Atherosclerotic heart disease of native coronary artery without angina pectoris; R29.810 Facial weakness; R29.702 NIHSS score 2; R47.1 Dysarthria and anarthria; H81.09 Meniere's disease, unspecified ear; K21.9 Gastro-esophageal reflux disease without esophagitis; E78.5 Hyperlipidemia, unspecified; I48.2 Chronic atrial fibrillation; I25.2 Old myocardial infarction; Z68.31 Body mass index [BMI] 31.0-31.9, adult; Z95.810 Presence of automatic (implantable) cardiac defibrillator; Z79.02 Long term (current) use of antithrombotics/antiplatelets; Z87.891 Personal history of nicotine dependence; Z95.5 Presence of coronary angioplasty implant and graft; Z95.1 Presence of aortocoronary bypass graft; J44.9 Chronic obstructive pulmonary disease, unspecified; I34.0 Nonrheumatic mitral (valve) insufficiency; G47.33 Obstructive sleep apnea (adult) (pediatric); I25.5 Ischemic cardiomyopathy; M19.90 Unspecified osteoarthritis, unspecified site
CPT/HCPCS: 70450; 70496; 70498; 71045; 80048; 80061; 80076; 82962; 83010; 83036; 83615; 84443; 84484; 85025; 85610; 85730; 93005; 93306; 94640; 97110; 97116; 97162; 97166; 99285; J7030; Q9967; A4216

== ENCOUNTER → 2017-07-21 17:36 | Outpatient (CLI) | payer MEDICARE, SELFPAY ==
--- NOTE | 2017-07-21 17:38 | CT_ITS ---
STUDY: CT BRAIN WITHOUT CONTRAST REASON FOR EXAM: Male, 81 years old. Follow-up recent right MCA infarct RADIATION DOSAGE (If Supplied By Facility): CTDIvol = ( 44.99 ) mGy, DLP = ( 812.98 ) mGycm TECHNIQUE: Transaxial CT imaging of the brain was performed without administration of intravenous contrast material. Individualized dose optimization techniques were used for this CT. COMPARISON: 06/29/2017, 06/30/2017. FINDINGS: Normal soft tissue structures. Normal calvarium. Improving appearance of right MCA infarct which continues to be ischemic with no evidence for hemorrhage. Decreased density of the right temporal lobe is less prominent as is effacement of sulci. No other changes. No hemorrhage. Again seen is mild atrophy and diffuse white matter disease. There is mucoperiosteal inflammatory disease of the paranasal sinuses consistent with severe chronic sinusitis. CT/Brain/Head without Contrast IMPRESSION: Decreasing prominence of subacute right MCA infarct, no hemorrhage. No acute abnormality. Electronically Signed: Remy Don MD at 12:41 EDT , Service support ,
== END ==
PROVIDERS: Family Provider Internal Medicine; PCP Internal Medicine; Visit Provider Nurse Practitioner Acute Care
DX: Z86.73 Personal history of transient ischemic attack (TIA), and cerebral infarction without residual deficits (principal)
CPT/HCPCS: 70450

== ENCOUNTER 2017-10-05 05:38 | Emergency (ER) | payer MEDICARE, SELFPAY ==
--- NOTE | 2017-10-05 05:38 | DT_ITS ---
This patient was seen during an EMR downtime October 05, 2017 - October 12, 2017. This patient may have a combination of paper and electronic documentation or all paper documentation. All documentation is viewable within the e-chart portion of [facility] for each patient visit.
--- NOTE | 2017-10-05 06:10 | RAD_ITS ---
STUDY: X-RAY CHEST REASON FOR EXAM: Male, 82 years old. Cough. Shortness of breath TECHNIQUE: Single AP portable view of the chest. COMPARISON: June 29, 2017. FINDINGS: Pacemaker device on the left is stable. Interstitial accentuation of the right and left lung. Left mid and lower lung opacity with airspace consolidation and pleural effusion . Sternal cerclage wires are present from a prior sternotomy. Stable cardiac enlargement. There are calcified mediastinal lymph nodes. Prominent central vascularity. Normal visualized aortic arch and descending thoracic aorta. Normal visualized thoracic spine. Normal visualized ribs, clavicles, and shoulders. There is no demonstrated abnormality of the visualized soft tissue structures of the upper abdomen. RAD/Chest 1 View (Portable) IMPRESSION: Interstitial edema or fibrosis. Left lung consolidation and pleural effusion. Electronically Signed: Abdullahi Botello MD at 13:28 EDT , Service support ,
[2017-10-08 10:32] LABS: Anion Gap 10 (5-15); BUN 21 mg/dL (7-18); BUN/Creat Ratio 21.4 RATIO (10-20); Calcium,Total 8.3 mg/dL (8.5-10.1); Chloride 108 mmol/L (98-107); Creatinine, Serum 0.98 mg/dL (0.70-1.30); EST Glomerular Filtration Rate 78 mL/min (>60); Est Glom Filt Rate - Afr Amer 95 mL/min (>60); Glucose 110 mg/dL (74-106); Potassium 3.8 mmol/L (3.5-5.1); Sodium Level 143 mmol/L (136-145)
[2017-10-08 17:12] LABS: Absolute Neutrophil Count 4.6 X10^3/uL (2.0-7.7); Basophil% 0.8 % (0-1); Eosinophils% 3.5 % (0-5); Hematocrit 40.2 % (40-54); Lymphocyte % 12.8 % (19-41); Mean Corp Hgb Conc 32.3 g/gl (32-36); Mean Corpuscular Hgb 30.8 pg (27.0-32.0); Mean Corpuscular Volume 95.3 fL (80-94); Mean Platelet Vol. 10.6 fl (6.2-12.0); Monocyte% 7.6 % (0-10); Neutrophil # 4.57 X10^3/uL (2.7-7.7); Neutrophil % 75.1 % (47-70); POSITIVE COUNT NO; POSITIVE DIFFERENTIAL NO; POSITIVE MORPHOLOGY NO; Platelet Count 197 K/mm3 (150-450); RBC Distribution Width CV 14.2 % (11.6-14.6); RBC Distribution Width SD 47.8 fl (35.1-43.9); Red Blood Count 4.22 M/mm3 (4.6-6.2); White Blood Count 6.1 K/mm3 (4.4-11.0)
== END 2017-10-05 07:35 | disposition home or self-care (01) ==
PROVIDERS: Emergency Provider Emergency Medicine; Family Provider Internal Medicine; PCP Internal Medicine
DX: J40 Bronchitis, not specified as acute or chronic (principal); I25.10 Atherosclerotic heart disease of native coronary artery without angina pectoris
CPT/HCPCS: 71045; 80048; 84484; 85025; 99284; A4216

== ENCOUNTER 2018-10-12 23:52 | Observation (INO) | payer MEDICARE, SELFPAY ==
[2018-10-12 23:53] VITALS: BP 147/101; PULSE 81; RESP 22; TEMP 36.6; O2SAT 91; BMI 31.0
[2018-10-12 23:59] VITALS: O2SAT 97
--- NOTE | 2018-10-12 23:59 | EKG12_ITS ---
Test Reason : NEURO Blood Pressure : / mmHG Vent. Rate : 087 BPM Atrial Rate : 105 BPM P-R Int : 000 ms QRS Dur : 146 ms QT Int : 420 ms P-R-T Axes : 000 -63 077 degrees QTc Int : 505 ms Atrial fibrillation Left axis deviation Right bundle branch block Abnormal ECG Confirmed by FRANC LUCAS, DAVY ([id number]), editor publications DARIEL IRELAND ([id number]) on 10/15/2018 10:06:36 AM Referred By: CORINNE Confirmed By:DAVY BRUNER MD
[2018-10-13] VITALS (19 sets, daily range): BP systolic 112–159; BP diastolic 62–143; PULSE 66–105; RESP 14–20; TEMP 36.6–37.2; O2SAT 90–99; BMI 31.2
[2018-10-13 00:01] LABS: Bedside Glucose 128 mg/dL (70-110)
--- NOTE | 2018-10-13 00:05 | CT_ITS ---
HISTORY: HEADACHE,LT SIDED WEAKNESS,EYES ARE DEVIATED TO THE LEFTHX:A-FIB,CVA,HTN EXAM/TECHNIQUE: CT Head or Brain W/O Contrast: Multiplanar reformats provided. COMPARISON: 07/21/17 CT brain. FINDINGS: # of images incl. paperwork: 266 No evidence of intracranial hemorrhage, hydrocephalus mass, or acute infarct. Encephalomalacia anterolateral aspect right temporal lobe. No acute osseous abnormality. Scattered chronic appearing hypodensities in the cerebral white matter. Calcific atherosclerosis of the intracranial arteries. Interval progression of chronic bilateral maxillary, ethmoid, and frontal sinusitis. CT/Brain/Head without Contrast IMPRESSION: No acute intracranial findings. Interval progression of chronic bilateral maxillary, ethmoid, and frontal sinusitis. Individualized dose optimization techniques were used for this CT. at 0046 Reported and signed by: Talha Ma MD Electronically Signed: Talha Ma, at 0:45 EDT Tel , Service support ,
--- NOTE | 2018-10-13 00:05 | RAD_ITS ---
HISTORY: neuro symptomsc/o no chest / breathing problems EXAM/TECHNIQUE: XR Chest 1 View: COMPARISON: 10/05/17 CXR FINDINGS: # of images incl. paperwork: 1 Left pleural effusion with adjacent atelectasis, and interstitial and vascular prominence in the bilateral lungs is similar to prior. Cardiomegaly with implanted cardiac device and sternotomy wires similar to prior. No apparent pneumothorax. RAD/Chest 1 View IMPRESSION: Little change compared to previous. Evidence of CHF with left pleural effusion, interstitial edema and pulmonary vascular congestion. at 0048 Reported and signed by: Talha Ma MD Electronically Signed: Talha Ma, at 0:47 EDT Tel , Service support ,
--- NOTE | 2018-10-13 00:05 | EKG12_ITS ---
Test Reason : ADM EKG Blood Pressure : / mmHG Vent. Rate : 083 BPM Atrial Rate : 441 BPM P-R Int : 000 ms QRS Dur : 154 ms QT Int : 436 ms P-R-T Axes : 000 -70 055 degrees QTc Int : 512 ms Atrial fibrillation with premature ventricular or aberrantly conducted complexes Left axis deviation Right bundle branch block Abnormal ECG When compared with ECG of 05-OCT-2017 06:01, Atrial fibrillation has replaced Electronic ventricular pacemaker Confirmed by FRANC LUCAS, DAVY ([id number]), scientific editor ZAKIYA OVERTON ([id number]) on 10/14/2018 11:58:12 AM Referred By: ARLEY Confirmed By:DAVY BRUNER MD
[2018-10-13 00:30] LABS: Absolute Lymphocyte Count 1.34 X10^3/ul (0.83-4.51); Absolute Neutrophil Count 6.7 X10^3/uL (2.0-7.7); Basophil# 0.03 X10^3/uL; Basophil% 0.3 % (0-1); Eosinophil# 0.31 X10^3/uL; Eosinophils% 3.4 % (0-5); Hematocrit 42.7 % (40-54); Hemoglobin 14.2 g/dl (13.0-16.5); Lymphocyte # 1.34 X10^3/ul (4.0); Lymphocyte % 14.5 % (19-41); Mean Corp Hgb Conc 33.3 g/gl (32-36); Mean Corpuscular Hgb 30.7 pg (27.0-32.0); Mean Corpuscular Volume 92.2 fL (80-94); Mean Platelet Vol. 10.6 fl (6.2-12.0); Monocyte# 0.89 X10^3/uL; Monocyte% 9.6 % (0-10); Neutrophil # 6.66 X10^3/uL (2.7-7.7); Neutrophil % 72.1 % (47-70); Platelet Count 218 K/mm3 (150-450); RBC Distribution Width CV 13.5 % (11.6-14.6); RBC Distribution Width SD 44.7 fl (35.1-43.9); Red Blood Count 4.63 M/mm3 (4.6-6.2); White Blood Count 9.2 K/mm3 (4.4-11.0)
[2018-10-13 00:31] LABS: POSITIVE COUNT NO; POSITIVE DIFFERENTIAL NO; POSITIVE MORPHOLOGY NO
[2018-10-13 00:42] LABS: Anion Gap 5 (5-15); BUN 18 mg/dL (7-18); BUN/Creat Ratio 15.1 RATIO (10-20); Calcium,Total 8.8 mg/dL (8.5-10.1); Chloride 105 mmol/L (98-107); Creatinine, Serum 1.19 mg/dL (0.70-1.30); EST Glomerular Filtration Rate 62 mL/min (>60); Est Glom Filt Rate - Afr Amer 75 mL/min (>60); Glucose 135 mg/dL (74-106); Potassium 3.5 mmol/L (3.5-5.1); Sodium Level 138 mmol/L (136-145)
--- NOTE | 2018-10-13 00:59 | CT_ITS ---
HISTORY: LT SIDED WEAKNESS,EYES DEVIATED TO LEFT,CONFUSIONHEADACHEHX:HTN,CVA,A-FIB TECHNIQUE: Routine carotid CT angiogram protocol was performed without and with IV contrast. In addition, images were obtained of the [place]. Nascet criteria using the distal ICAs for comparison were used for evaluation of stenoses. 3D reconstructions were reviewed. A radiation dose optimization technique was used for this scan. IV Contrast dosage and agent: 100ML Isovue 370 COMPARISON: 06/29/17 CTA head and neck. FINDINGS: --Neck: AORTIC ARCH AND BRANCHES: Normal anatomy, patent. Changes of CABG partially visible. RIGHT CCA: No occlusion, significant stenosis or dissection. RIGHT ICA: No occlusion, significant stenosis or dissection. Calcific plaque causes mild narrowing proximally, unchanged. Tortuosity distally looping prior to entering the skull base, unchanged. LEFT CCA: No occlusion, significant stenosis or dissection. Calcific plaque causes mild narrowing proximally, unchanged. Tortuosity distally looping prior to entering the skull base, unchanged. LEFT ICA: No occlusion, significant stenosis or dissection. RIGHT VERTEBRAL ARTERY: No occlusion, significant stenosis or dissection. Hypoplastic. LEFT VERTEBRAL ARTERY: No occlusion, significant stenosis or dissection. Dominant. --Head: ICAs: No significant stenosis at the intracranial/visualized segments. Mild atherosclerosis of the intracranial ICAs. ACAs: No significant stenosis at the visualized segments. ACOM is present. MCAs: No significant stenosis at the visualized segments. artillery or naval gunfire observer: No significant stenosis at the visualized segments. BASILAR ARTERY: No significant stenosis. VERTEBRAL ARTERIES: No significant stenosis at the intradural/visualized segments. No evidence of intracranial aneurysm or vascular malformation. Nonvascular structures: Sternotomy wires and implanted cardiac device partially visible. Degenerative changes cervical spine. Encephalomalacia anterolateral aspect right temporal lobe. Chronic pansinusitis. 1.2 cm left submandibular sialolith with no obstruction. IMPRESSION: No significant arterial narrowing in the head or neck. No acute findings. Chronic pansinusitis, other chronic findings as listed above. Individualized dose optimization techniques were used for this CT. at 0225 Reported and signed by: Talha Ma MD Electronically Signed: Talha Ma, at 2:24 EDT Tel , Service support , HISTORY: LT SIDED WEAKNESS,EYES DEVIATED TO LEFT,CONFUSIONHEADACHEHX:HTN,CVA,A-FIB TECHNIQUE: Routine carotid CT angiogram protocol was performed without and with IV contrast. In addition, images were obtained of the [place]. Nascet criteria using the distal ICAs for comparison were used for evaluation of stenoses. 3D reconstructions were reviewed. A radiation dose optimization technique was used for this scan. IV Contrast dosage and agent: 100ML Isovue 370 COMPARISON: 06/29/17 CTA head and neck. FINDINGS: --Neck: AORTIC ARCH AND BRANCHES: Normal anatomy, patent. Changes of CABG partially visible. RIGHT CCA: No occlusion, significant stenosis or dissection. RIGHT ICA: No occlusion, significant stenosis or dissection. Calcific plaque causes mild narrowing proximally, unchanged. Tortuosity distally looping prior to entering the skull base, unchanged. LEFT CCA: No occlusion, significant stenosis or dissection. Calcific plaque causes mild narrowing proximally, unchanged. Tortuosity distally looping prior to entering the skull base, unchanged. LEFT ICA: No occlusion, significant stenosis or dissection. RIGHT VERTEBRAL ARTERY: No occlusion, significant stenosis or dissection. Hypoplastic. LEFT VERTEBRAL ARTERY: No occlusion, significant stenosis or dissection. Dominant. --Head: ICAs: No significant stenosis at the intracranial/visualized segments. Mild atherosclerosis of the intracranial ICAs. ACAs: No significant stenosis at the visualized segments. ACOM is present. MCAs: No significant stenosis at the visualized segments. artillery or naval gunfire observer: No significant stenosis at the visualized segments. BASILAR ARTERY: No significant stenosis. VERTEBRAL ARTERIES: No significant stenosis at the intradural/visualized segments. No evidence of intracranial aneurysm or vascular malformation. Nonvascular structures: Sternotomy wires and implanted cardiac device partially visible. Degenerative changes cervical spine. Encephalomalacia anterolateral aspect right temporal lobe. Chronic pansinusitis. 1.2 cm left submandibular sialolith with no obstruction. CT/CTA Neck W/WO Contrast
--- NOTE | 2018-10-13 00:59 | CT_ITS ---
HISTORY: LT SIDED WEAKNESS,EYES DEVIATED TO LEFT,CONFUSIONHEADACHEHX:HTN,CVA,A-FIB TECHNIQUE: Routine carotid CT angiogram protocol was performed without and with IV contrast. In addition, images were obtained of the [place]. Nascet criteria using the distal ICAs for comparison were used for evaluation of stenoses. 3D reconstructions were reviewed. A radiation dose optimization technique was used for this scan. IV Contrast dosage and agent: 100ML Isovue 370 COMPARISON: 06/29/17 CTA head and neck. FINDINGS: --Neck: AORTIC ARCH AND BRANCHES: Normal anatomy, patent. Changes of CABG partially visible. RIGHT CCA: No occlusion, significant stenosis or dissection. RIGHT ICA: No occlusion, significant stenosis or dissection. Calcific plaque causes mild narrowing proximally, unchanged. Tortuosity distally looping prior to entering the skull base, unchanged. LEFT CCA: No occlusion, significant stenosis or dissection. Calcific plaque causes mild narrowing proximally, unchanged. Tortuosity distally looping prior to entering the skull base, unchanged. LEFT ICA: No occlusion, significant stenosis or dissection. RIGHT VERTEBRAL ARTERY: No occlusion, significant stenosis or dissection. Hypoplastic. LEFT VERTEBRAL ARTERY: No occlusion, significant stenosis or dissection. Dominant. --Head: ICAs: No significant stenosis at the intracranial/visualized segments. Mild atherosclerosis of the intracranial ICAs. ACAs: No significant stenosis at the visualized segments. ACOM is present. MCAs: No significant stenosis at the visualized segments. director wholesale: No significant stenosis at the visualized segments. BASILAR ARTERY: No significant stenosis. VERTEBRAL ARTERIES: No significant stenosis at the intradural/visualized segments. No evidence of intracranial aneurysm or vascular malformation. Nonvascular structures: Sternotomy wires and implanted cardiac device partially visible. Degenerative changes cervical spine. Encephalomalacia anterolateral aspect right temporal lobe. Chronic pansinusitis. 1.2 cm left submandibular sialolith with no obstruction. IMPRESSION: No significant arterial narrowing in the head or neck. No acute findings. Chronic pansinusitis, other chronic findings as listed above. Individualized dose optimization techniques were used for this CT. at 0225 Reported and signed by: Talha Ma MD Electronically Signed: Talha Ma, at 2:24 EDT Tel , Service support , HISTORY: LT SIDED WEAKNESS,EYES DEVIATED TO LEFT,CONFUSIONHEADACHEHX:HTN,CVA,A-FIB TECHNIQUE: Routine carotid CT angiogram protocol was performed without and with IV contrast. In addition, images were obtained of the [place]. Nascet criteria using the distal ICAs for comparison were used for evaluation of stenoses. 3D reconstructions were reviewed. A radiation dose optimization technique was used for this scan. IV Contrast dosage and agent: 100ML Isovue 370 COMPARISON: 06/29/17 CTA head and neck. FINDINGS: --Neck: AORTIC ARCH AND BRANCHES: Normal anatomy, patent. Changes of CABG partially visible. RIGHT CCA: No occlusion, significant stenosis or dissection. RIGHT ICA: No occlusion, significant stenosis or dissection. Calcific plaque causes mild narrowing proximally, unchanged. Tortuosity distally looping prior to entering the skull base, unchanged. LEFT CCA: No occlusion, significant stenosis or dissection. Calcific plaque causes mild narrowing proximally, unchanged. Tortuosity distally looping prior to entering the skull base, unchanged. LEFT ICA: No occlusion, significant stenosis or dissection. RIGHT VERTEBRAL ARTERY: No occlusion, significant stenosis or dissection. Hypoplastic. LEFT VERTEBRAL ARTERY: No occlusion, significant stenosis or dissection. Dominant. --Head: ICAs: No significant stenosis at the intracranial/visualized segments. Mild atherosclerosis of the intracranial ICAs. ACAs: No significant stenosis at the visualized segments. ACOM is present. MCAs: No significant stenosis at the visualized segments. director wholesale: No significant stenosis at the visualized segments. BASILAR ARTERY: No significant stenosis. VERTEBRAL ARTERIES: No significant stenosis at the intradural/visualized segments. No evidence of intracranial aneurysm or vascular malformation. Nonvascular structures: Sternotomy wires and implanted cardiac device partially visible. Degenerative changes cervical spine. Encephalomalacia anterolateral aspect right temporal lobe. Chronic pansinusitis. 1.2 cm left submandibular sialolith with no obstruction. CT/CTA Head W/WO Contrast
[2018-10-13] MEDS: Ondansetron 4 MG/2 ML Vial IV (01:08)
[2018-10-13] MEDS: fentaNYL 100 MCG/2 ML Ampul 25 MCG IV (01:13)
--- NOTE | 2018-10-13 01:22 | EKG12_ITS ---
Test Reason : CP Blood Pressure : / mmHG Vent. Rate : 082 BPM Atrial Rate : 357 BPM P-R Int : 000 ms QRS Dur : 154 ms QT Int : 426 ms P-R-T Axes : 000 -62 057 degrees QTc Int : 497 ms Atrial flutter with variable A-V block Left axis deviation Right bundle branch block Abnormal ECG Confirmed by FRANC LUCAS, DAVY ([id number]), scientific editor ZAKIYA OVERTON ([id number]) on 10/15/2018 9:03:53 AM Referred By: JANUARY Confirmed By:DAVY BRUNER MD
[2018-10-13 01:24] LABS: International Normalized Ratio 1.1; Prothrombin Time (Protime)PT. 13.9 SECONDS (11.7-14.9)
--- NOTE | 2018-10-13 02:46 | HP.PCM_ITS ---
Problem List (1) Stroke-like symptoms Status: Acute (2) Hypertension Status: Chronic (3) Coronary artery disease Status: Chronic (4) Chronic atrial fibrillation Status: Chronic (5) Chronic anticoagulation Status: Chronic Comment: Pradaxa History of Present Illness Date of Admission: 10/13/18 Chief Complaint: stroke-like symptoms The patient is a 83 year old M with a significant history of CAD status post CABG; heart failure; COPD; CVA; and permanent pacemaker who presented to the emergency department with stroke-like symptoms that started few hours before presentation. He describes his symptoms as numbness of the fingers of his right hand; and right arm pain. Also, he reports vision changes. He reports that although he though he saw the remote control he could not grab the remote control because the remote control was not actually there. Per his patient had problem driving. Further, his reports that patient was leaning over towards her while coming to the emergency department. Patient thought that on presentation he had difficulty with finger to nose test. His thinks that patient was difficulty with movement of his left arm. Patient denies any vision changes. Emergency department doctor reported that patient was having chest spasm at the ED. Subsequently patient received fentanyl. While patient's confirms this chest pain, patient denies chest pain. Patient stated that he had pain in his left arm. Past Medical History Past Medical History (Chronic Problems): Chronic Problems Hypertension (Chronic) Coronary artery disease (Chronic) Chronic atrial fibrillation (Chronic) Chronic anticoagulation (Chronic) Pradaxa GERD (gastroesophageal reflux disease) (Chronic) Obesity (Chronic) Systolic congestive heart failure (Chronic) Hyperbilirubinemia (Chronic) COPD (chronic obstructive pulmonary disease) (Chronic) History of coronary artery bypass graft (Chronic) 2003 Former smoker (Chronic) Hyperlipidemia (Chronic) Osteoarthritis (Chronic) Obstructive sleep apnea (Chronic) on BIPAP AICD (automatic cardioverter/defibrillator) present (Chronic) Allergies Penicillins [PCN] Allergy (Verified 10/13/18 00:00) Rash Sulfa (Sulfonamide Antibiotics) Allergy (Verified 10/13/18 00:00) Rash Home Medications: Ambulatory Orders Medication Instructions Recorded Amlodipine [Norvasc] 5 mg PO DAILY 09/15/13 Atorvastatin Calcium [Lipitor] 80 mg PO QHS 09/15/13 Carvedilol 12.5 mg PO DAILY 09/15/13 Furosemide [Lasix] 20 mg PO DAILY 09/15/13 Lisinopril 40 mg PO DAILY 09/15/13 Zolpidem Tartrate [Ambien] 5 mg PO QHS PRN PRN 09/15/13 Albuterol Inhaler [Ventolin Hfa] 1 - 2 puff INHALATION Q4H PRN PRN 07/20/15 #1 inhaler Mometasone/Formoterol [Dulera 200 8.8 gm IH DAILY 07/20/15 Mcg/5 Mcg Inhaler] Apixaban [Eliquis] 5 mg PO BID #60 tab 06/30/17 Aspirin [Aspirin, Baby] 81 mg PO DAILY@0800 tab.chew 06/30/17 Surgical History: cataract - Bilateral, cholecystectomy, coronary bypass surgery, herniorrhaphy - Left inguinal, pacemaker implantation - PM/AICD, - - PTCA/MATTHEW Psychiatric History: No pertinent psych hx Lives: Spouse/ Significant Other Smoking Status: Former smoker - *Family History Sibling Family History: Family History (Last Updated 10/13/18 @ 03:56 by Gerald Odell MD) Mother Myocardial infarction Sister Tuberculosis Father Peripheral artery disease History Items: Cancer - brother with prostate CA Review of Systems Constitutional: Denies: Chills, Fever, Weight Change HEENT: Denies: Head Aches, Sinus Congestion, Sinus Drainage Cardiovascular: Denies: Palpitations, Syncope Respiratory: Denies: Cough, Shortness of breath at rest, Sputum production Gastrointestinal: Denies: Abdominal Pain, Nausea, Vomiting Genitourinary: Denies: Dysuria Musculoskeletal: Denies: Joint Pain, Joint Tenderness Skin: Denies: Rash, Wounds Neurological: Reports: Incoordination, Numbness. Denies: Tingling Psychiatric: Denies: Anxiety, Depression, Homicidal Ideations, Suicidal Ideations Hematologic/ Lymphatic: Denies: Easy Bruising, Easy Bleeding VTE Information - Inpt Only VTE Present on Admission: No VTE Mechan Device Prophylaxis: None VTE Pharm Prophylaxis ordered?: No Reason prophylaxis not ordered:: Treatment Not Indicated - On Eliquis for A. fib; continued. Patient Problems: Active and Suspected Problems Stroke-like symptoms (Acute) - Physical Exam General: Alert, Oriented x3, Cooperative HEENT: Atraumatic, PERRLA, EOMI, Normocephalic Neck: Supple, No JVD, Negative Carotid Bruits Lungs: Clear to auscultation, Normal air movement Cardiovascular: No murmurs, Irregular Rate Abdomen: Bowel Sounds Present, Soft, Non Tender Extremities: No edema, Capillary Refill Less than 3 Seconds Skin: No rashes, No breakdown Musculoskeletal: No Tenderness to Palpation of Joints or Extremities Neurological: Motor Exam 5/5 strength throughout, Muscle tone normal, - - Could not adequately count fingers with each eye tested separately. Left temporal hemianopia. No dysmetria. Psych/Mental Status: Normal Affect, Appropriate Vital Signs Temp Pulse Resp BP Pulse Ox 97.8 F 83 17 138/72 H 97 10/12/18 23:53 10/13/18 01:30 10/13/18 01:30 10/13/18 01:30 10/13/18 01:30 Oxygen Delivery Method Room Air Weight: 92.6 kg Body Mass Index (BMI) 31.0 Finger Stick Blood Glucose 128 Laboratory Tests Past 24 Hrs 10/13/18 10/13/18 10/13/18 00:00 00:00 00:00 WBC 9.2 RBC 4.63 Hgb 14.2 Hct 42.7 MCV 92.2 MCH 30.7 MCHC 33.3 RDW 13.5 RDW Differential 44.7 H Plt Count 218 MPV 10.6 Immature Gran % (Auto) 0.100 Neut % (Auto) 72.1 H Lymph % (Auto) 14.5 L [place] % (Auto) 9.6 Eos % (Auto) 3.4 Baso % (Auto) 0.3 Absolute Neuts (auto) 6.7 Absolute Lymphs (auto) 1.34 Total Counted Not Reportable PT 13.9 INR 1.1 APTT 35.0 Sodium 138 Potassium 3.5 Chloride 105 Carbon Dioxide 28.0 Anion Gap 5 BUN 18 Creatinine 1.19 Estim Creat Clear Calc 46.30 Est GFR (MDRD) Af Amer 75 Est GFR (MDRD) Non-Af 62 BUN/Creatinine Ratio 15.1 Glucose 135 H Calcium 8.8 Troponin I < 0.015 POC Glucose 10/12/18 23:55 POC Glucose 128 H Assessment/Plan All Active Problems Stroke-like symptoms (Acute) Ischemic cerebrovascular accident (CVA) (Acute) Hearing loss (Acute) History of PTCA 1 (Acute) Difficulty walking (Acute) Speech disturbance (Acute) TIA (transient ischemic attack) (Acute) The patient is a 83 year old M with a significant history of CAD status post CABG; heart failure; COPD; CVA; and permanent pacemaker who presented to the emergency department with stroke-like symptoms . Emergency department doctor reported NINDS NIH Scale of 4 CT of the head was not remarkable for acute intracranial findings. However it showed interval progression of chronic bilateral maxillary, ethmoid and frontal sinusitis. CT brain was independently reviewed. I agree with radiologist interpretation. CTA/head and neck was unremarkable. Patient think that his pacemaker is not MRI compatible. Patient to bring MRI card. -Check Hba1c, Lipid level Physical therapy, occupational therapy and speech therapy to work with patient. N.p.o. until bedside swallow eval. Daily aspirin continued. High intensity statin continued Lipid profile and A1c ordered. Permissive hypertension. Control blood pressure with labetalol for systolic blood pressure of more than 220 or diastolic blood pressure of more than 120. -Permissive HTN for 24 hrs. As such we will hold home amlodipine; carvedilol; furosemide and Lasix. Echocardiogram ordered. Atypical chest pain Trend troponin. Continue aspirin and high intensity statin. COPD Stable Albuterol as needed continued Dulera continued Persistent A. fib Controlled Eliquis continued DVT prophylaxis Not indicated since patient is on Eliquis for A. fib Eliquis continued. Code Visit OBSV E&M: 75970 Initial observation care L3
--- NOTE | 2018-10-13 02:47 | ED.DCSUM_ITS ---
- ER Visit Summary Date of Service: 10/13/18 Chief Complaint: Weakness and paresthesias History of Present Illness: The patient is a 83 M who states was not acting quite right starting at 7 PM this evening. He complained of numbness to his left hand. states he was leaning on her to try to get to the car tonight. He complains of a mild headache. He does complain of double vision but states that is chronic and unchanged. He has mild weakness and paresthesias to his left hand. Patient has history of CVA, TIA, coronary disease. He has atrial fibrillation is on Eliquis as well as aspirin. Physical Examination: Vital signs unremarkable. Patient sitting in the bed, but leans to his left. He turns his neck to his left and hold his eyes to the left. When asked to turn the other direction he can overcome this. Heart is irregular. Lung sounds clear. Abdomen is soft and nontender. Neuro exam reveals an NIH score of 4. He receives one-point for left arm weakness, one point for limb ataxia. He receives one-point for decreased sensation, and 1.4 extinction. Test Results: Patient was taken immediately to CAT scan. No acute intracranial findings are noted. EKG is A. fib at 87 with no acute ischemia. CBC and chemistry studies unremarkable. Coags normal. Troponin negative. Portable chest x-ray shows left pleural effusion that is similar to previous. CTA of the head and neck is unremarkable. Emergency Department Course and Treatment: While in the emergency room patient developed spasm and pain to the left upper chest around his pacemaker site. Repeat EKG was unchanged. He was treated with fentanyl and Zofran with improvement. At this time on repeat examination, patient feels much better than on arrival. He is sitting straight upright in the bed and looking around the room without difficulty. Patient symptoms seem consistent with a TIA. He will be admitted for further evaluation as well as cycling of cardiac enzymes for this atypical chest pain. Treatment Plan: [] Disposition: Admit Impression: 1. TIA 2. Atypical chest pain This note was generated with [employer] dictation software. It may contain incorrect words, spelling, and punctuation that were not noted in review of the chart prior to signing ED Disposition - Plan for ED Patient: Referrals: Torin Noyola MD [Primary Care Provider] -
--- NOTE | 2018-10-13 04:03 | ECHOCS_ITS ---
Reason For Study: TIA/CVA Procedure This was a 2D Doppler, Color Flow transthoracic echocardiogram. The study was technically difficult. Contrast injection was performed. Exam performed portable in patient room. Left Ventricle Mildly dilated left ventricle. Concentric left ventricular hypertrophy. The estimated ejection fraction is 40 %. There is evidence of diastolic dysfunction. Right Ventricle Normal RV size. pacemaker/ AICD seen in the RA and RV. Normal systolic function. Atria The left atrium is severely enlarged. Normal right atrium. Mitral Valve There is no mitral valve stenosis. Mild (1+) mitral valve insufficiency. Tricuspid Valve There is no tricuspid stenosis. Mild tricuspid valve insufficiency. Pulmonary artery systolic pressure is 40 mmHg. Aortic Valve Mild diffuse aortic valve thickening. Mild aortic stenosis. Mild (1+) aortic valve insufficiency. Pulmonic Valve There is no pulmonic valvular stenosis. Trivial pulmonic valve insufficiency. Great Vessels Normal aortic root. Pericardium/Pleural No pericardial effusion. Medication Diluted definity 3ml given slow IV push to enhance endocardial definition. MMode/2D Measurements & Calculations LVIDd: 6.4 cm IVSd: 1.4 cm LVOT diam: 2.2 cm LVIDs: 5.4 cm LVPWd: 1.3 cm FS: 15.7 % LVOT area: 3.8 cm2 Ao root diam: 3.3 cm LAV(MOD-bp): 134.3 ml LA A4 area: 34.3 cm2 LA dimension: 6.2 cm LAV(MOD-bp) Indexed: 65.0 ml/m2 LAV(MOD-sp2): 128.8 ml LAV(MOD-sp4): 135.8 ml RA A4 area: 21.4 cm2 Time Measurements MV dec time: 0.18 sec Doppler Measurements & Calculations MV E max luis: 99.4 cm/sec MV V2 max: 96.3 cm/sec MV P1/2t max luis: 96.3 cm/sec MV A max luis: 28.8 cm/sec MV max P.7 mmHg MV P1/2t: 91.4 msec MV E/A: 3.4 MV V2 mean: 61.8 cm/sec MV mean P.7 mmHg MV dec slope: 308.5 cm/sec2 MV V2 VTI: 26.2 cm MVA(P1/2t): 2.4 cm2 MVA(VTI): 2.7 cm2 Ao V2 max: 192.8 cm/sec LV V1 max: 102.7 cm/sec SV(LVOT): 70.8 ml Ao max P.9 mmHg LV V1 max P.2 mmHg Ao V2 mean: 117.0 cm/sec LV V1 mean P.1 mmHg Ao mean P.6 mmHg LV V1 mean: 65.7 cm/sec Ao V2 VTI: 38.0 cm LV V1 VTI: 18.9 cm ABHIJEET(I,D): 1.9 cm2 ABHIJEET(V,D): 2.0 cm2 PA V2 max: 86.7 cm/sec TR max luis: 271.2 cm/sec TR max P.4 mmHg Interpretation Summary The study was technically difficult. Diluted definity 3ml given slow IV push to enhance endocardial definition. Concentric left ventricular hypertrophy. Mildly dilated left ventricle. The estimated ejection fraction is 40 %. There is evidence of diastolic dysfunction. Normal right atrium. Mild (1+) mitral valve insufficiency. Mild aortic stenosis. Mild (1+) aortic valve insufficiency. The study was technically difficult. Ordering Physician: Gerald Odell Referring Physician: Torin Noyola M.D. Performed By: Kenroy Franks RCS
[2018-10-13 05:23] LABS: Cholesterol 135 mg/dL (200); High Density Lipoprotein 48 mg/dL; Triglycerides 186 mg/dL; Very Low Density Lipoprotein 37 mg/dL (5-40)
[2018-10-13] MEDS: Albuterol 2.5 MG/3 ML VIAL.NEB. INHALATION ×3 (07:07→19:15)
[2018-10-13] MEDS: Budesonide Respules 0.5 MG/2 ML AMPUL.NEB. INHALATION ×2 (07:07→19:15)
[2018-10-13 07:58] LABS: Hemoglobin A1c 5.7 % (4.2-6.3)
[2018-10-13] MEDS: Aspirin 81 MG TAB.CHEW PO (10:53)
[2018-10-13] MEDS: APIXABAN 5 MG TABLET PO ×2 (10:53→22:29)
--- NOTE | 2018-10-13 13:30 | CASEMGMT ---
Patient has a Healthcare POA and Healthcare LW on file at [facility] ine-chart. SW printed copies and placed them in his paper chart. Jnae GARZA MSW
--- NOTE | 2018-10-13 13:54 | CASEMGMT ---
SW completed a PHQ-9 with patient as he may have had a TIA. Patient scored a 4 which indicates minimal depression. SW did give patient a resource list in the event he would like to pursue counseling. Jane GARZA MSW
[2018-10-13] MEDS: Atorvastatin Calcium 80 MG Tablet PO (22:29)
[2018-10-14] VITALS (7 sets, daily range): BP systolic 124–146; BP diastolic 57–79; PULSE 51–87; RESP 16–18; TEMP 36.8–37.1; O2SAT 94–98; BMI 31.2
--- NOTE | 2018-10-14 05:55 | CT_ITS ---
STUDY: CT BRAIN WITHOUT CONTRAST REASON FOR EXAM: Male, 83 years old. Weakness and headache, history of CVA RADIATION DOSAGE (If Supplied By Facility): CTDIvol = ( 44.99 ) mGy, DLP = ( 846.73 ) mGycm TECHNIQUE: Transaxial CT imaging of the brain was performed without administration of intravenous contrast material. Individualized dose optimization techniques were used for this CT. COMPARISON: CT head from 10/13/2018 FINDINGS: Normal soft tissue structures. Normal calvarium. There is mild cerebral atrophy with widening of the extra-axial spaces and ventricular dilatation. There are areas of decreased attenuation within the white matter tracts of the supratentorial brain, consistent with microvascular disease changes. Normal basal ganglia and thalami. Normal brainstem. Normal cerebellum. There is no intracranial hemorrhage. There is stable encephalomalacic changes in the right temporal lobe. No evidence for acute infarct. There is opacification of the maxillary sinuses and ethmoid air cells. CT/Brain/Head without Contrast IMPRESSION: Stable hypodensity in the right MCA distribution consistent with prior infarct. No significant interval change or acute findings. Electronically Signed: Thomas Barnett, at 6:23 EDT Tel , Service support ,
[2018-10-14] MEDS: Albuterol 2.5 MG/3 ML VIAL.NEB. INHALATION ×2 (07:41→13:44)
[2018-10-14] MEDS: Budesonide Respules 0.5 MG/2 ML AMPUL.NEB. INHALATION (07:41)
[2018-10-14] MEDS: Aspirin 81 MG TAB.CHEW PO (09:20)
[2018-10-14] MEDS: APIXABAN 5 MG TABLET PO (09:20)
[2018-10-14 10:38] LABS: Bacteria 0 SEEN /hpf (None Seen); Squamous Epithelial Cells - UA 0 SEEN /hpf (0-5)
[2018-10-14 10:40] LABS: Color, Urine Yellow (Yellow); Glucose, Dipstick Normal (Normal); Ketone-Dipstick Negative (Negative); Leukocyte Esterase-Dipstick 25 /ul (Negative); Nitrite-Dipstick Negative (Negative); Occult Blood-Urine 150 /ul (Negative); Protein-Dipstick 30 mg/dl (Negative); Urine Bilirubin Dipstick Negative (Negative); Urine Clarity Clear (Clear); Urine Urobilinogen Normal (Normal)
[2018-10-14 10:49] LABS: Mucous, Urine 3+ /hpf (<or=2+); Red Blood Cells-Urine 0-5 SEEN /hpf (0-5); White Blood Cells 0-5 SEEN /hpf (0-5)
--- NOTE | 2018-10-14 11:12 | PCM.DC.SUM ---
Discharge Date and Diagnosis - Problem List Patient Problems: Active and Suspected Problems Stroke-like symptoms (Acute) Date of Admission: 10/13/18 Date of Discharge: 10/14/18 - Primary Discharge Diagnosis Active and Suspected Problems Stroke-like symptoms (Acute) - Secondary Discharge Diagnosis Chronic Problems Hypertension (Chronic) Coronary artery disease (Chronic) Chronic atrial fibrillation (Chronic) Chronic anticoagulation (Chronic) Pradaxa GERD (gastroesophageal reflux disease) (Chronic) Obesity (Chronic) Systolic congestive heart failure (Chronic) Hyperbilirubinemia (Chronic) COPD (chronic obstructive pulmonary disease) (Chronic) History of coronary artery bypass graft (Chronic) 2003 Former smoker (Chronic) Hyperlipidemia (Chronic) Osteoarthritis (Chronic) Obstructive sleep apnea (Chronic) on BIPAP AICD (automatic cardioverter/defibrillator) present (Chronic) Hospital Course and Treatment Imaging Results: CT Brain: IMPRESSION: No acute intracranial findings. Interval progression of chronic bilateral maxillary, ethmoid, and frontal sinusitis. Individualized dose optimization techniques were used for this CT. CTA Head/Neck: IMPRESSION: No significant arterial narrowing in the head or neck. No acute findings. Chronic pansinusitis, other chronic findings as listed above. Individualized dose optimization techniques were used for this CT. Repeat CT brain: IMPRESSION: Stable hypodensity in the right MCA distribution consistent with prior infarct. No significant interval change or acute findings. CXR: IMPRESSION: Little change compared to previous. Evidence of CHF with left pleural effusion, interstitial edema and pulmonary vascular congestion. Operations: None Procedures: 2-D Echocardiogram - Interpretation Summary The study was technically difficult. Diluted definity 3ml given slow IV push to enhance endocardial definition. Concentric left ventricular hypertrophy. Mildly dilated left ventricle. The estimated ejection fraction is 40 %. There is evidence of diastolic dysfunction. Normal right atrium. Mild (1+) mitral valve insufficiency. Mild aortic stenosis. Mild (1+) aortic valve insufficiency. The study was technically difficult. Summary of Care Provided: Per HPI: The patient is a 83 year old M with a significant history of CAD status post CABG; heart failure; COPD; CVA; and permanent pacemaker who presented to the emergency department with stroke-like symptoms that started few hours before presentation. He describes his symptoms as numbness of the fingers of his right hand; and right arm pain. Also, he reports vision changes. He reports that although he though he saw the remote control he could not grab the remote control because the remote control was not actually there. Per his patient had problem driving. Further, his reports that patient was leaning over towards her while coming to the emergency department. Patient thought that on presentation he had difficulty with finger to nose test. His thinks that patient was difficulty with movement of his left arm. Patient denies any vision changes. Emergency department doctor reported that patient was having chest spasm at the ED. Subsequently patient received fentanyl. While patient's confirms this chest pain, patient denies chest pain. Patient stated that he had pain in his left arm. Hospital Course: 1. Rule out CVA/[id number] male with a history of CAD, heart failure, COPD, CVA and a permanent pacemaker presented to the ER with hallucinations and confusion. He said that there is some numbness may be in his right hand and slight right arm pain. His symptoms completely resolved for few hours later and unfortunately his pacemaker CT scan showed an old infarct in his brain and the CT of his head and neck were negative. All of his lab work was normal and on the day of discharge obtained a UA because on the night of admission he had what nursing described as sundowning episode. He acknowledges this morning that he was confused and he recognized that he was confused but he said the room was all turned around and he was not sure what was going on. He knows where he is currently and what year it is and who he is. He is currently an NIH of 0 strength is 5/5 and sensations intact. I discussed with the family that he might be demonstrating signs of early dementia especially with the sundowning last night. He has no reason for any type of delirium at the moment, he is not on any medications and his blood pressure meds were held yesterday and he was normotensive. I had a long discussion today with the family about obtaining a neurology consult while here in the hospital or potentially going home to see if he sun downs in a familiar environment. If he goes home and he does have an episode of sundowning he can come back to the hospital for admission, neurology evaluation and probable transfer to a intermediate facility at discharge, or if he goes home and he does not have sundowning then he can follow-up with his outpatient primary care physician with referral to neurology for further evaluation and testing for possible dementia. The elected to take him home today. We discussed the risks and benefits of each option. 2. Atypical chest pain/CAD status post CABG/persistent A. fib/chronic diastolic heart failure-he is currently on aspirin and statin as well as Eliquis. His troponins were negative and his echo was unremarkable, his EF is borderline though not consistent with systolic dysfunction with an EF of 40%. We will restart all of his blood pressure medications except his Norvasc, as he was having some low blood pressures into the low 100s while off of his medications. He will need to follow-up with his primary care physician as an outpatient for monitoring of his blood pressure. 3. His other medical diagnoses were evaluated and his home medications were continued where appropriate Patient Problems: Active and Suspected Problems Stroke-like symptoms (Acute) - Physical Exam General: Alert, Oriented x3, Cooperative, No apparent distress HEENT: Atraumatic, PERRLA, EOMI, Normocephalic Oral: Moist Mucosa Neck: Supple, No JVD Lungs: Clear to auscultation, Normal air movement, No rhonchi, No wheeze, No rales Cardiovascular: Regular rate, Normal S1, Normal S2, No murmurs, - - Irregular rhythm Abdomen: Soft, Non Tender, Non-Distended, No Hepato-splenomegaly Extremities: No edema, Capillary Refill Less than 3 Seconds Skin: No rashes, No breakdown Neurological: Neuro grossly intact, Sensory exam intact to light touch and pain Psych/Mental Status: Normal Affect, Appropriate Vital Signs Temp Pulse Resp BP Pulse Ox 98.8 F 79 18 124/78 H 94 10/14/18 07:34 10/14/18 07:42 10/14/18 07:42 10/14/18 07:34 10/14/18 07:42 Oxygen Delivery Method Room Air Weight: 205 lb 7.533 oz Body Mass Index (BMI) 31.2 Finger Stick Blood Glucose 128 Intake and Output for Last 24 Hours 10/12/18 10/13/18 10/14/18 23:59 23:59 23:59 Intake Total 970 / 970 240 / 240 Balance 970 / 970 240 / 240 Laboratory Tests Past 24 Hrs 10/14/18 10:28 Urine Color Yellow Urine Clarity Clear Urine pH 5.0 Ur Specific [place] 1.020 Urine Protein 30 H Urine Glucose (UA) Normal Urine Ketones Negative Urine Occult Blood 150 H Urine Nitrite Negative Urine Bilirubin Negative Urine Urobilinogen Normal Ur Leukocyte Esterase 25 H Urine RBC 0-5 SEEN Urine WBC 0-5 SEEN Ur Squamous Epith Cells 0 SEEN Urine Bacteria 0 SEEN Urine Mucus 3+ Home Medications: Medications to take at Discharge Atorvastatin Calcium [Lipitor] 80 mg PO QHS 09/15/13 Carvedilol 12.5 mg PO DAILY 09/15/13 Furosemide [Lasix] 20 mg PO DAILY 09/15/13 Lisinopril 40 mg PO DAILY 09/15/13 Zolpidem Tartrate [Ambien] 5 mg PO QHS PRN PRN 09/15/13 Albuterol Inhaler [Ventolin Hfa] 1 - 2 puff INHALATION Q4H PRN PRN #1 inhaler 07/20/15 Mometasone/Formoterol [Dulera 200 Mcg/5 Mcg Inhaler] 8.8 gm IH DAILY 07/20/15 Apixaban [Eliquis] 5 mg PO BID #60 tab 06/30/17 Aspirin [Aspirin, Baby] 81 mg PO DAILY@0800 tab.chew 06/30/17 Primary Care Physician: Torin Noyola MD [Primary Care Provider] - Please follow up with your Primary Care Physician in: 3-5 days Please Follow Up With: Neurology When: 2-4 weeks Disposition: Home Minutes spent on discharge:: 35 Patient Condition:: Stable Medical Necessity - Tobacco Use Smoking Status: Former smoker Tobacco Use: Cigarettes Meaningful Use Info Meaningful Use Diagnoses (Choose all that apply): None applicable Code Visit OBSV E&M: 87937 Observation care discharge
--- NOTE | 2018-10-14 12:19 | CASEMGMT ---
This RN EDSON to room with AMARO form at this time, explanation done-pt voices understanding, and signs AMARO form at this time. Pt is A/Ox4 at this time and answers all questions appropriately at this time. Original to chart and copy to pt at this time. Pt/ voice no further questions/concerns/needs at this time. SStaten DONTE CM
--- NOTE | 2018-10-14 13:43 | DCINST_ITS ---
- Discharge Diagnoses Current Active Problems: Current Active and Chronic Problems Stroke-like symptoms (Acute) You will use the following diet at home:: Cardiac Your food should be the consistency of: Regular Your liquids should be the consistency of: Regular/Thin Discharge Activity: Return to Normal Activity Call your doctor if you observe: Fever of 101 or Higher, Shortness of breath, Dizziness, Fainting spells, Swelling in the ankles, Chest pain, Increased palpitations (irregular heartbeat) Allergies/Adverse Reactions: Allergies Penicillins [PCN] Allergy (Verified 10/13/18 00:00) Rash Sulfa (Sulfonamide Antibiotics) Allergy (Verified 10/13/18 00:00) Rash Medications to take at Discharge Atorvastatin Calcium [Lipitor] 80 mg PO QHS 09/15/13 Carvedilol 12.5 mg PO DAILY 09/15/13 Furosemide [Lasix] 20 mg PO DAILY 09/15/13 Lisinopril 40 mg PO DAILY 09/15/13 Zolpidem Tartrate [Ambien] 5 mg PO QHS PRN PRN 09/15/13 Albuterol Inhaler [Ventolin Hfa] 1 - 2 puff INHALATION Q4H PRN PRN #1 inhaler 07/20/15 Mometasone/Formoterol [Dulera 200 Mcg/5 Mcg Inhaler] 8.8 gm IH DAILY 07/20/15 Apixaban [Eliquis] 5 mg PO BID #60 tab 06/30/17 Aspirin [Aspirin, Baby] 81 mg PO DAILY@0800 tab.chew 06/30/17 Primary Care Physician: Torin Noyola MD [Primary Care Provider] - Please follow up with your Primary Care Physician in: 3-5 days Test Results: Test results from this visit will be discussed in further detail at your follow- up appointment, if applicable. Please Follow Up With: Neurology When: 2-4 weeks
== END 2018-10-14 13:42 | disposition home or self-care (01) ==
LOC: ED 10-13 01:44 → PCU 10-13 03:37
PROVIDERS: Admitting Provider Hospitalist; Emergency Provider Emergency Medicine; Family Provider Internal Medicine; PCP Internal Medicine; Visit Provider Family Medicine
DX: R41.0 Disorientation, unspecified (principal); R07.89 Other chest pain; R29.704 NIHSS score 4; R53.1 Weakness; R27.0 Ataxia, unspecified; I25.10 Atherosclerotic heart disease of native coronary artery without angina pectoris; I48.2 Chronic atrial fibrillation; I11.0 Hypertensive heart disease with heart failure; R20.0 Anesthesia of skin; I50.32 Chronic diastolic (congestive) heart failure; K21.9 Gastro-esophageal reflux disease without esophagitis; E66.9 Obesity, unspecified; J44.9 Chronic obstructive pulmonary disease, unspecified; I48.1 Persistent atrial fibrillation; E78.5 Hyperlipidemia, unspecified; I08.3 Combined rheumatic disorders of mitral, aortic and tricuspid valves; G47.33 Obstructive sleep apnea (adult) (pediatric); M19.90 Unspecified osteoarthritis, unspecified site; M79.601 Pain in right arm; Z95.810 Presence of automatic (implantable) cardiac defibrillator; Z68.31 Body mass index [BMI] 31.0-31.9, adult; Z71.3 Dietary counseling and surveillance; Z79.899 Other long term (current) drug therapy; Z86.73 Personal history of transient ischemic attack (TIA), and cerebral infarction without residual deficits; Z79.01 Long term (current) use of anticoagulants; Z79.82 Long term (current) use of aspirin; Z95.1 Presence of aortocoronary bypass graft; Z87.891 Personal history of nicotine dependence
CPT/HCPCS: 36415; 70450; 70496; 70498; 71045; 80048; 80061; 81001; 82962; 83036; 84484; 85025; 85610; 85730; 93005; 93306; 94640; 96374; 96375; 97802; 99218; 99285; Q9957; Q9967; A4216; C8929; G0378; J2405

== ENCOUNTER → 2018-11-01 09:14 | Outpatient (CLI) | payer MEDICARE, SELFPAY ==
[2018-10-14 03:41] VITALS: BMI 31.2
--- NOTE | 2018-11-01 13:42 | EEG ---
- Electroencephalogram Date of service 11/01/2018 History EEG is being done in this 83 yr M to rule out seizures EEG Description: This is an 18 channel EEG with 10-20 lead placement system. Bipolar montages, and Referential montages were reviewed. Photic stimulation and Hyperventilation were performed. The posterior dominant rhythm is 8 HZ synchronous, symmetric, reacting to eye opening and closing. Photo stimulation elicited normal driving response but no abnormal photoparoxysmal response, Hyperventilation did not elicit any abnormal photoparoxysmal response. Sleep was identified. There is no abnormal background slowing noted. Muscle artefact noted during the record. There was no epileptiform discharges or electrographic seizures noted during this recording. EEG Interpretation This is a normal awake and asleep EEG. There is no epileptiform discharges or electrographic seizures noted during the record.
== END ==
PROVIDERS: Family Provider Internal Medicine; PCP Internal Medicine; Referring Provider Registered Nurse; Visit Provider Registered Nurse
DX: R41.82 Altered mental status, unspecified (principal)
CPT/HCPCS: 95819

== ENCOUNTER → 2018-12-13 11:49 | Outpatient (CLI) | payer MEDICARE, SELFPAY ==
[2018-10-14 03:41] VITALS: BMI 31.2
[2018-12-13 13:02] LABS: Vitamin B12 301 pg/mL (211-911)
[2018-12-13 13:11] LABS: Thyroid Stim Hormone (TSH) 3.76 uIU/mL (0.358-3.74)
== END ==
PROVIDERS: Family Provider Internal Medicine; PCP Internal Medicine; Referring Provider Psychiatry & Neurology Neurology; Visit Provider Psychiatry & Neurology Neurology
DX: Z86.74 Personal history of sudden cardiac arrest (principal); Z79.899 Other long term (current) drug therapy
CPT/HCPCS: 36415; 82607; 84443

== ENCOUNTER 2018-12-21 21:50 | Emergency (ER) | payer MEDICARE, SELFPAY ==
[2018-10-14 03:41] VITALS: BMI 31.2
[2018-12-21 21:51] VITALS: BP 186/108; PULSE 86; RESP 20; TEMP 36.3; O2SAT 98; BMI 31.1
[2018-12-21 22:01] VITALS: BP 191/113; PULSE 88; RESP 21; O2SAT 96
[2018-12-21 22:02] VITALS: O2SAT 98
--- NOTE | 2018-12-21 22:02 | RAD_ITS ---
STUDY: X-RAY CHEST REASON FOR EXAM: Male, 83 years old. Chest pain TECHNIQUE: Frontal view of the chest COMPARISON: 10/13/2018. FINDINGS: There are mild congestive changes noted. There is a small left pleural effusion with overlying atelectasis. There is no right-sided effusion. There is no pneumothorax. The heart is enlarged, but stable. Again noted are sternotomy wires and a pacemaker. The visualized osseous structures are within normal limits. RAD/Chest PA and Lateral IMPRESSION: No significant change when compared with 10/13/2018. Electronically Signed: Rick Vieira, at 22:36 EDT Tel , Service support ,
--- NOTE | 2018-12-21 22:02 | EKG12_ITS ---
Test Reason : SOB Blood Pressure : / mmHG Vent. Rate : 088 BPM Atrial Rate : 088 BPM P-R Int : 218 ms QRS Dur : 148 ms QT Int : 416 ms P-R-T Axes : 090 -59 045 degrees QTc Int : 503 ms Sinus rhythm with 1st degree A-V block with Premature supraventricular complexes and with occasional Premature ventricular complexes Left axis deviation Right bundle branch block Minimal voltage criteria for LVH, may be normal variant Abnormal ECG Confirmed by KURTIS WISEMAN ([id number]), editor book ZAKIYA OVERTON ([id number]) on 12/27/2018 2:14:56 PM Referred By: Aidan Yan Confirmed By:KURTIS WISEMAN
--- NOTE | 2018-12-21 22:05 | ED.DCSUM_ITS ---
History of Present Illness Chief Complaint: Shortness of Breath Informant: Patient, Significant Other Onset: Today Context: Sudden Onset Timing: Continuous Quality: High blood pressure and shortness of breath Location: Shower Current Severity: Mild Maximum Severity: Moderate Worsened by: Shortness of breath increases with any activity Relieved by: Normally rest Associated Symptoms: Elevated blood pressure Narrative: Patient is an elderly male with multiple medical problems who presents because of elevated blood pressure with systolic rate of 200. He also dyspnea while showering. states this is not abnormal. He states is not normal for him to be short of breath at rest. He denies rhinorrhea, sore throat, postnasal drainage, ear pain or decreased hearing. He denies chest discomfort. He does report shortness of breath at rest. He denies nausea, vomiting diarrhea. He denies black or maroon stool. He states swelling of his lower extremities is normal. He states he sleeps upright and wears a BiPAP mask for obstructive sl eep apnea. He denies history of PE or DVT. He has no neurologic symptoms. He states he has problems with balance secondary to neck issues . This is a chronic problem. It is nothing new. Prior similar symptoms: No Recent Illness/Hospitalization: No - Past Medical History (1) Difficulty walking Status: Acute (2) History of PTCA 1 Status: Acute Comment: Abdiel/Michelle (3) Ischemic cerebrovascular accident (CVA) Status: Acute (4) Speech disturbance Status: Acute (5) TIA (transient ischemic attack) Status: Acute (6) AICD (automatic cardioverter/defibrillator) present Status: Chronic (7) Chronic anticoagulation Status: Chronic Comment: Pradaxa (8) Chronic atrial fibrillation Status: Chronic (9) Coronary artery disease Status: Chronic (10) GERD (gastroesophageal reflux disease) Status: Chronic (11) Hyperbilirubinemia Status: Chronic (12) Hyperlipidemia Status: Chronic (13) Hypertension Status: Chronic (14) Obesity Status: Chronic (15) Obstructive sleep apnea Status: Chronic Comment: on BIPAP (16) Osteoarthritis Status: Chronic (17) Systolic congestive heart failure Status: Chronic (18) 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 Comment: Tinnitus, hearing loss and vertigo Past Medical History - Allergies and Home Meds Allergies/Adverse Reactions: Allergies Penicillins [PCN] Allergy (Verified 10/13/18 00:00) Rash Sulfa (Sulfonamide Antibiotics) Allergy (Verified 10/13/18 00:00) Rash Primary Care Physician: Ruben Jones [NON-STAFF] - 3-5 Days Torin Noyola MD [Primary Care Provider] - Surgical History: cataract - Bilateral, cholecystectomy, coronary bypass surgery, herniorrhaphy - Left inguinal, pacemaker implantation - PM/AICD, - - PTCA/MATTHEW Lives: Spouse/ Significant Other Smoking Status: Former smoker Alcohol: None Drugs: None - Family History Sibling Family History: Family History (Last Updated 10/13/18 @ 03:56 by Gerald Odell MD) Mother Myocardial infarction Sister Tuberculosis Father Peripheral artery disease Family History: Reports: Cancer - brother with prostate CA Review of Systems General: Denies: Chills, Fever, Malaise, Subjective, Sweats Eyes: Denies: Visual changes - bilaterally, Blurred Vision - bilaterally, Diplopia ENT: Denies: Rhinorrhea, Sore throat Cardiovascular: Denies: Chest pain, Palpitations, Heart racing Respiratory: Reports: Dyspnea, Dyspnea on exertion, Orthopnea. Denies: Cough, Paroxysmal nocturnal dyspnea Gastrointestinal: Denies: Abdominal pain, Nausea, Vomiting, Diarrhea, Melena, Hematochezia Genitourinary: Denies: Dysuria, Hematuria, Frequency Musculoskeletal: Reports: Swelling - Right and left lower extremity. Denies: Myalgias, Arthralgias, Neck pain, Back pain, Extremity Pain, -, - Skin: Denies: Rash, Wounds Neurological: Denies: Headache, Weakness, Parasthesia, Numbness Hematologic: Denies: Easy bruising, Easy bleeding Allergy: Denies: Uticaria, Swelling of the mouth Physical Exam Vital Signs/Narrative: Vital Signs Temp Pulse Resp BP Pulse Ox 12/21/18 22:01 88 21 H 191/113 H 96 12/21/18 21:51 97.3 F L 86 20 H 186/108 H 98 Inital Vital Signs reviewed: Yes General: Well nourished, Well developed, Acute Distress - Patient is tachypneic with mild retractions Head: Normocephalic, Atraumatic Eyes: Perrl, EOMI. Negative for: Pale conjunctiva, Scleral icterus ENT: Moist mucous membranes, No rhinorrhea Neck: Supple, Nontender. Negative for: No lymphadenopathy, No JVD, - Cardiovascular: No murmurs, Irregular Respiratory: Chest nontender, Rales - Rales right base posteriorly. Negative for: No distress, CTA bilaterally Abdomen: Soft, Nontender, Nondistended, Normal bowel sounds Rectal: Deferred Back: Nontender, Normal Inspection. Negative for: CVA tenderness Extremities: Nontender, Edema - 1+ pitting Skin: Normal color, No rash, No Trauma. Negative for: Cyanosis, Diaphoresis, Jaundice Neurological: Alert, Oriented x3, Cranial nerves II-XII grossly intact, Normal Strength, Normal Sensation, Normal Gait Psychological: Normal affect, Normal Mood Diagnostic/Tx/Re-eval Chest X-Ray - ED: Read by ED Physician, Normal, Bony Structures, Cardiomegaly, CHF, - - Dual-chamber pacemaker/AICD noted. Sternotomy wires noted. There is no effusion noted. Impressions Chest X-Ray 12/21/18 22:02 IMPRESSION: No significant change when compared with 10/13/2018. Electronically Signed: Rick Isha, at 22:36 EDT Tel , Service support , 12/21/18 22:02 Chest PA and Lateral [RAD] Stat Laboratory Results 12/21/18 12/21/18 22:15 22:15 WBC 6.0 RBC 4.24 L Hgb 13.1 Hct 40.6 MCV 95.8 H MCH 30.9 MCHC 32.3 RDW Std Deviation 49.7 H RDW Coeff of Theresa 14.2 Plt Count 207 MPV 10.3 Immature Gran % (Auto) 0.300 Neut % (Auto) 71.2 H Lymph % (Auto) 14.7 L [place] % (Auto) 8.9 Eos % (Auto) 4.2 Baso % (Auto) 0.7 Absolute Neuts (auto) 4.3 Absolute Lymphs (auto) 0.88 Nucleated RBC % 0 Sodium 143 Potassium 3.7 Chloride 111 H Carbon Dioxide 29.0 Anion Gap 3 L BUN 26 H Creatinine 1.09 Estim Creat Clear Calc 50.55 Est GFR (MDRD) Af Amer 83 Est GFR (MDRD) Non-Af 69 BUN/Creatinine Ratio 23.9 H Glucose 126 H Calcium 8.5 Troponin I < 0.015 - EKG Initial EKG Interpretation: Atrial Flutter - Ocular rate is 88. Patient has variable block. There are premature ventricular beats and probable a variant beats. There is evidence of LVH. [place] interval is not pertinent. QRS duration 148 ms. QT duration 416 ms. There is RR prime and findings consistent with right bundle branch block. [place] is to the left. - Medical Decision Making With rales and shortness of breath and history of congestive heart failure chest x-ray was obtained to assess for congestive heart failure. Blood work was obtained also to assess for endorgan injury. CT of the head was not obtained since he has no neurologic symptoms or findings. Patient's most recent blood pressure is 201/118, 20-32. Patient was ordered clonidine. Received dose of clonidine approximately 20 to 30 minutes ago. He has had a 10% reduction in his blood pressure. CT is asymptomatic goal is 15% reduction and follow-up with PCP. He did receive Lasix for chronic congestive heart failure. She was reassessed at 2340. Blood pressure is 181/92. Patient reports his breathing is markedly better. He has diuresed a significant amount. Plan is to discharge. ED Disposition - Plan for ED Patient: Diagnosis: Accelerated hypertension with diastolic congestive heart failure, NYHA class 3 Instructions: CHF, General, HYPERTENSION, Established, Out of Control Referrals: Torin Noyola MD [Primary Care Provider] - Ruben Jones [NON-STAFF] - 3-5 Days Additional Instructions: Increase Lasix from 1 tablet a day to 2 tablets a day for the next 5 days. Increase lisinopril from 1 tablet a day to 2 tablets a day. 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
[2018-12-21 22:24] LABS: Absolute Lymphocyte Count 0.88 X10^3/uL (0.83-4.51); Absolute Neutrophil Count 4.3 X10^3/uL (2.0-7.7); Basophil# 0.04 X10^3/uL; Basophil% 0.7 % (0-1); Eosinophil# 0.25 X10^3/uL; Eosinophils% 4.2 % (0-5); Hematocrit 40.6 % (40-54); Hemoglobin 13.1 g/dL (13.0-16.5); Lymphocyte # 0.88 X10^3/ul (4.0); Lymphocyte % 14.7 % (19-41); Mean Corp Hgb Conc 32.3 g/dL (32-36); Mean Corpuscular Hgb 30.9 pg (27.0-32.0); Mean Corpuscular Volume 95.8 fL (80-94); Mean Platelet Vol. 10.3 fl (6.2-12.0); Monocyte# 0.53 X10^3/uL; Monocyte% 8.9 % (0-10); NRBC Flagged by Analyzer 0 % (0-5); Neutrophil # 4.26 X10^3/uL (2.7-7.7); Neutrophil % 71.2 % (47-70); Platelet Count 207 K/mm3 (150-450); RBC Distribution Width CV 14.2 % (11.6-14.6); RBC Distribution Width SD 49.7 fl (35.1-43.9); Red Blood Count 4.24 M/mm3 (4.6-6.2)
[2018-12-21 22:41] LABS: Anion Gap 3 (5-15); BUN 26 mg/dL (7-18); BUN/Creat Ratio 23.9 RATIO (10-20); Calcium,Total 8.5 mg/dL (8.5-10.1); Chloride 111 mmol/L (98-107); Creatinine, Serum 1.09 mg/dL (0.70-1.30); EST Glomerular Filtration Rate 69 mL/min (>60); Est Glom Filt Rate - Afr Amer 83 mL/min (>60); Estimated Creatinine Clearance 50.55 ml/min; Glucose 126 mg/dL (74-106); Potassium 3.7 mmol/L (3.5-5.1); Sodium Level 143 mmol/L (136-145)
[2018-12-21] MEDS: Furosemide 40 MG/4 ML Vial IV (22:47)
[2018-12-21] MEDS: cloNIDine HCl 0.2 MG Tablet PO (22:47)
[2018-12-21 22:50] VITALS: BP 181/103
[2018-12-21 23:05] VITALS: BP 186/105; PULSE 90; RESP 22; O2SAT 96
[2018-12-21 23:59] VITALS: BP 155/92
== END 2018-12-21 23:59 | disposition home or self-care (01) ==
LOC: ED 22:22
PROVIDERS: Emergency Provider Emergency Medicine; Family Provider Internal Medicine; PCP Internal Medicine
DX: I11.0 Hypertensive heart disease with heart failure (principal); I50.42 Chronic combined systolic (congestive) and diastolic (congestive) heart failure; I48.2 Chronic atrial fibrillation; I25.10 Atherosclerotic heart disease of native coronary artery without angina pectoris; E80.6 Other disorders of bilirubin metabolism; E78.5 Hyperlipidemia, unspecified; M19.90 Unspecified osteoarthritis, unspecified site; R06.82 Tachypnea, not elsewhere classified; R26.2 Difficulty in walking, not elsewhere classified; R47.9 Unspecified speech disturbances; G47.33 Obstructive sleep apnea (adult) (pediatric); K21.9 Gastro-esophageal reflux disease without esophagitis; E66.9 Obesity, unspecified; Z79.01 Long term (current) use of anticoagulants; Z79.82 Long term (current) use of aspirin; Z79.899 Other long term (current) drug therapy; Z88.0 Allergy status to penicillin; Z88.2 Allergy status to sulfonamides; Z86.73 Personal history of transient ischemic attack (TIA), and cerebral infarction without residual deficits; Z87.891 Personal history of nicotine dependence; Z98.61 Coronary angioplasty status; Z95.810 Presence of automatic (implantable) cardiac defibrillator
CPT/HCPCS: 71046; 80048; 84484; 85025; 93005; 96374; 99284; A4216; J1940

== ENCOUNTER → 2019-01-19 08:04 | Outpatient (CLI) | payer MEDICARE, SELFPAY ==
[2018-12-21 21:51] VITALS: BMI 31.1
[2019-01-19 09:24] LABS: AST(SGOT) 12 U/L (15-37); Alanine Aminotransfer ALT/SGPT 19 U/L (16-61); Albumin, Serum 3.6 g/dL (3.2-5.0); Alkaline Phosphatase 97 U/L (45-117); Bilirubin, Direct 0.32 mg/dL (0.00-0.30); Cholesterol 124 mg/dL (200); Globulin 3.9 g/dL (2.2-4.2); High Density Lipoprotein 52 mg/dL; Protein, Total 7.5 g/dL (6.4-8.2); Triglycerides 134 mg/dL; Very Low Density Lipoprotein 27 mg/dL (5-40)
== END ==
PROVIDERS: Family Provider Internal Medicine; PCP Internal Medicine; Referring Provider Internal Medicine Cardiovascular Disease; Visit Provider Internal Medicine Cardiovascular Disease
DX: E78.5 Hyperlipidemia, unspecified (principal); I25.10 Atherosclerotic heart disease of native coronary artery without angina pectoris; I10 Essential (primary) hypertension; I42.9 Cardiomyopathy, unspecified
CPT/HCPCS: 36415; 80061; 80076

== ENCOUNTER → 2019-03-29 07:44 | Outpatient (CLI) | payer MEDICARE, SELFPAY ==
--- NOTE | 2019-03-29 07:47 | CT_ITS ---
STUDY: CT CERVICAL SPINE WITHOUT CONTRAST REASON FOR EXAM: Male, 83 years old. RADIATION DOSAGE (If Supplied By Facility): CTDIvol = ( 23.07 ) mGy, DLP = ( 525.75 ) mGycm TECHNIQUE: High resolution transaxial imaging was performed without contrast material. Sagittal and coronal images were reconstructed. Individualized dose optimization techniques were used for this CT. COMPARISON: None FINDINGS: The vertebral bodies are of normal height with the straightening of the cervical lordosis. The odontoid is somewhat irregular. There is mild narrowing at the level of C2-3. The disc at the levels of C3-4 and C4-5 are relatively maintained. Markedly narrowing and degenerative changes seen at the level of C5-6 and C6-7 with spondylosis and anterior osteophyte formation. Minimal encroachment upon the neural foramina seen at these 2 levels bilaterally. Mild hypertrophic changes involving the facet joints particularly at the levels of C3-C4, C4-5 and also at the level off C7-T1 on the left. CT/Spine Cervical without Contras IMPRESSION: Evidence of degenerative disc disease mainly at the levels of C5-6 and C6-7 with some spondylotic changes and the facet arthropathy. Electronically Signed: Carissa Martínez, at 15:32 EST Tel , Service support ,
== END ==
PROVIDERS: Family Provider Internal Medicine; PCP Internal Medicine; Referring Provider Nurse Practitioner; Visit Provider Nurse Practitioner
DX: M50.30 Other cervical disc degeneration, unspecified cervical region (principal)
CPT/HCPCS: 72125

== ENCOUNTER 2019-05-10 09:00 | Outpatient (RCR) | payer MEDICARE, SELFPAY ==
--- NOTE | 2019-04-11 11:55 | HP.PTEVAL_ITS ---
Patient's Visit Information ALEXIA MERIDA is a 83 year old M referred to Physical Therapy by Albert Gillespie MD with a diagnosis of NECK AND ARM PAIN. Date of Evaluation: 04/11/19 Physical Therapist: Alexia Slaughter, PT, Cert MDT, OCS - Visit Plan Frequency: 2x /Week Duration: 4 Weeks Plan: PRECAUTION: PACEMAKER NO ESTIM. PT INTERVENTIONS MANUAL THERAPY CERVICAL TRACTION,US/MHP,POSTURAL EX'S - Subjective Findings: This 83 y/o male presents to physical therapy with neck and arm pain. Patient has had cervical pain affecting right UE for many years . Patient has severe pain when attempting to to move neck. Patient seen DR Malagon for pain management for possible injection. Patient seen DR Sweeney [facility] states unable to have surgery medical condition with heart CABG . Aggravating factotrs turning cervical spine ,looking ,lifting with right arm. Alleviating factors not moving. Denies parathesia/tingling.Denies HANNA/nausea/tinnitus. Patient able to sleep at night. Patient has no h/o trauma/falls. Patient had no treatment in past. Patient pain causes impairments with ADL's,housework task. Patient pain affects QOL .Patient does state problems with balance.COMORBITIES: PRECAUTION - PACEMAKER,CABG x3,stents,left TKR,COPD,TIA,SLEEP APNEA. SOCIAL: . VOCATION: retired. HOBBIES: golf - Pain Right Neck Pain Intensity (Out of 10): 8 Pain Intensity Range: 10 Right Shoulder Pain Intensity (Out of 10): 5 Pain Intensity Range: 10 - Objective POSTURE: mild foward posture. NEURO: denies parathesia/tingling,reflexes C5-6-7 /. PALAPTION: tender. AROM: BUE WFL painfull right shoulder. MMT: BUE 4/5 but pain right shoulder. CERCVICAL ROM: flexion min loss,extension severe loss,rotation /lateral flexion severe loss,rotation/lateral flexion mod /sever loss pain especially - Special Tests C/S Radiculapathy - Left Upper limb tension test: Negative C/S Radiculapathy - Right Upper limb tension test: Negative C/S Radiculapathy - Left Spurlings: Positive C/S Radiculapathy - Right Spurlings: Positive C/S Radiculapathy - Left Cervical distraction: Negative C/S Radiculapathy - Right Cervical distraction: Negative Sharp Julee: Negative Vertebral Artery Test: Negative Alar Ligament Test: Negative - Goals Goal 1:: Independant with HEP Goal Time Frame: 4-6 Weeks Goal 2:: Decrease pain cervical spine by 40% or > to improve QOL and function. Goal Time Frame: 4-6 Weeks Goal 3:: Patient to improve cervical ROM for function of recovery for driving with less pain. Goal Time Frame: 4-6 Weeks Goal 4:: Patient to improve neck owestry score by 3-5 points or > to improve function. Goal Time Frame: 4-6 Weeks - Rehabilitation Potential Physical Therapy Diagnosis: This patient has severe neck and arm pain with poor cervical ROM worsen with movement to right with pain thus causes deficits with ADL'S and housework tasks thus benifit from skilled PT Rehabilitation Potential: Good - Anticipated Interventions Patient/Client Instruction: Educate patient on: Condition, Plan of Care For the Purpose of:: To decrease pain, To increase ROM, To improve muscle perfo rmance and motor function, To improve ability to perform ADL's, To increase tolerance to activity/condition/position, To improve ability of physical actions for home/community/work/leisure, To improve health of tissue, To decrease soft tissue restriction, To increase flexibility/ROM, To improve ability to perform tasks related to life management Therapeutic Exercise to Include: Strength training, Postural training, Flexibilty training, Active ROM For the Purpose of:: To decrease pain, To increase ROM, To improve muscle performance and motor function, To improve ability to perform ADL's, To increase tolerance to activity/condition/position, To improve ability of physical actions for home/community/work/leisure, To decrease soft tissue restriction, To increase flexibility/ROM, To improve tolerance to ADL's Manual Therapy Techniques to Include: Mobilization Comment: CERVICAL TRACTION For the Purpose of:: To decrease pain, To increase ROM, To improve nutrient delivery to tissue, To increase oxygenation perfusion, To improve health of tissue, To decrease soft tissue restriction Cryotherapy (ice pack, ice massage): Yes Thermo therapy (hot pack): Yes Ultrasound (thermal/non thermal): Yes For the Purpose of:: To decrease pain, To decrease swelling/inflammation, To increase ROM, To improve health of tissue, To decrease soft tissue restriction Thank you for the opportunity to evaluate your patient. For Medicare and Medicare HMO plans, please review the plan of care and approve it. It will need to be FAXED BACK to us at [phone] for Medicare purposes. For Medicare only, by signing this I certify the plan of care. Please let me know if there are questions or concerns regarding this plan of care. Physician Signature: Date:
--- NOTE | 2019-05-10 09:28 | HP.PTDCSUM ---
HP - PT D/C Summary It has been my pleasure to treat ALEXIA MERIDA under orders from Albert Gillespie MD, for the diagnosis of NECK AND ARM PAIN for a total of 9 visit(s). Discharge Date: 05/10/19 Please see the following information for a summary of their discharge status. - Subjective Subjective: Doing alot better.Able to do on own . Plan for another injection. - Pain Right Neck Pain Intensity (Out of 10): 2 Right Shoulder Pain Intensity (Out of 10): 2 - Overall Improvement % Improvement: 60 - Objective Objective/Function: POSTURE: MILD FOWARD POSTURE. CERVICAL ROM: FLEXION MIN LOSS,LATERAL FLEXION/ROTATION TO RIGHT MOD /SEVERE LOSS,EXTENSION MOD LOSS. MMT: GROSSLY 4/5 SHOULDER 4-/5 - Goals Goal 1:: Independant with HEP Goal Progress: Goal Met Goal 2:: Decrease pain cervical spine by 40% or > to improve QOL and function. Goal Progress: Goal Met Goal 3:: Patient to improve cervical ROM for function of recovery for driving with less pain. Goal Progress: Goal Met Goal 4:: Patient to improve neck owestry score by 3-5 points or > to improve function. Goal Progress: Goal Met - Plan Plan: D/C - D/C Information Discharge Comments: HEP If there are questions or concerns regarding this patient's physical therapy, please feel free to call me at [phone]. Thank you for the referral of this patient. Sincerely, Alexia Slaughter, PT, Cert MDT, OCS
== END 2019-05-10 19:00 | disposition home or self-care (01) ==
LOC: PT 09:00
PROVIDERS: Family Provider Internal Medicine; PCP Internal Medicine; Referring Provider Anesthesiology Pain Medicine; Visit Provider Anesthesiology Pain Medicine
DX: M54.2 Cervicalgia (principal); M79.603 Pain in arm, unspecified
CPT/HCPCS: 97035; 97110; 97140; 97162

== ENCOUNTER → 2019-06-15 10:01 | Outpatient (CLI) | payer MEDICARE, SELFPAY ==
--- NOTE | 2019-06-15 10:08 | RAD_ITS ---
STUDY: X-RAY - RIGHT SHOULDER REASON FOR EXAM: Male, 83 years old. PAIN TECHNIQUE: 4 view(s) of the shoulder. COMPARISON: None. FINDINGS: There is moderate degenerative arthrosis of the glenohumeral articulation. Normal acromioclavicular joint. Normal acromion. There is demineralization of the humerus and visualized osseous structures. The soft tissue structures are unremarkable. There is no demonstrated fracture. Normal visualized pulmonary apex. RAD/Shoulder min 2 Views IMPRESSION: Generalized osteopenia. Moderate degenerative changes of the glenohumeral joint. Electronically Signed: Talha Mota MD at 17:13 EST , Service support ,
--- NOTE | 2019-06-15 10:08 | RAD_ITS ---
STUDY: X-RAY - LEFT SHOULDER REASON FOR EXAM: Male, 83 years old. PAIN TECHNIQUE: 4 view(s) of the shoulder. COMPARISON: None. FINDINGS: There is mild degenerative arthrosis of the glenohumeral articulation. Normal acromioclavicular joint. Normal acromion. There is demineralization of the humerus and visualized osseous structures. There is a tiny calcification in the region of the bicipital groove. There is no demonstrated fracture. Normal visualized pulmonary apex. RAD/Shoulder min 2 Views IMPRESSION: Generalized osteopenia. Mild degenerative changes of the left shoulder joint. Tiny calcification in the area of the bicipital groove which may represent calcific tendinitis/bursitis. Electronically Signed: Talha Mota MD at 17:17 EST , Service support ,
== END ==
PROVIDERS: PCP Internal Medicine; Referring Provider Anesthesiology Pain Medicine; Visit Provider Anesthesiology Pain Medicine
DX: M25.511 Pain in right shoulder (principal); M25.512 Pain in left shoulder
CPT/HCPCS: 73030

== ENCOUNTER → 2019-09-05 13:10 | Outpatient (CLI) | payer MEDICARE, SELFPAY ==
--- NOTE | 2019-09-05 13:12 | CT_ITS ---
STUDY: CT RIGHT SHOULDER REASON FOR EXAM: Male, 83 years old. R SHOULDER PAIN, OSTEOARTHRITIS, NO KNOWN INJURY, HTN, CABG RADIATION DOSAGE (If Supplied By Facility): CTDIvol = ( 33.21 ) mGy, DLP = ( 846.43 ) mGycm TECHNIQUE: The patient was scanned in a multi detector CT scanner. High resolution transaxial imaging was performed without the administration of intravenous contrast material. Sagittal and coronal images were reconstructed. Individualized dose optimization techniques were used for this CT. COMPARISON: Comparison is made with prior radiographs of the right shoulder dated June 15, 2019. FINDINGS: There is severe osteoarthritis, with severe articular joint space narrowing, osteoarthritic spurring, articular remodeling, and with articular erosions. Subchondral cysts are seen in the humeral head as well as the acromion. There is also evidence of degenerative spur formation along the inferior medial portion of the humeral head. This also evidence of spur formation along the inferior aspect of the glenoid. Normal glenoid rim, neck and visualized scapula. Normal coracoid process. Normal visualized lateral clavicle. Normal acromioclavicular articulation. There is a Type II morphology (curved), with a neutral orientation. Incidental note is made of a 1.8 cm x 1.9 cm lipoma in the teres minor muscle. CT/Extremity Upper without Contra IMPRESSION: Marked degree of osteoarthritis involving the glenohumeral joint with subchondral geodes. Incidental note is made of a small lipoma in the teres minor muscle. Electronically Signed: Geovany Pruett, at 14:38 EDT , Service support ,
== END ==
PROVIDERS: PCP Internal Medicine; Referring Provider Physician Assistant Surgical; Visit Provider Physician Assistant Surgical
DX: M19.011 Primary osteoarthritis, right shoulder (principal)
CPT/HCPCS: 73200

== ENCOUNTER 2019-09-20 06:17 | Observation (INO) | payer MEDICARE, SELFPAY ==
[2019-09-20] VITALS (19 sets, daily range): BP systolic 115–166; BP diastolic 54–106; PULSE 76–123; RESP 16–22; TEMP 36.7–37.2; O2SAT 94–100; BMI 33.4; BMI 30.2
--- NOTE | 2019-09-20 06:24 | EKG12_ITS ---
Test Reason : STROKE TEAM Blood Pressure : / mmHG Vent. Rate : 101 BPM Atrial Rate : 094 BPM P-R Int : 000 ms QRS Dur : 148 ms QT Int : 346 ms P-R-T Axes : 000 223 013 degrees QTc Int : 448 ms Atrial fibrillation with premature ventricular or aberrantly conducted complexes Right bundle branch block Inferior infarct , age undetermined , cannot be excluded Anterior TN, age undetermined, cannot be excluded Abnormal ECG Confirmed by COLTEN LUCAS, ARIADNE ([id number]), senior technical editor DARIEL IRELAND ([id number]) on 09/22/2019 4:01:49 PM Referred By: MAINOR Confirmed By:ARIADNE ABEL MD
--- NOTE | 2019-09-20 06:24 | CT_ITS ---
We are attempting to reach an attending provider to discuss findings. An addendum with communication details will be sent when the communication is complete. STUDY: CT BRAIN WITHOUT CONTRAST REASON FOR EXAM: Male, 84 years old patient with signs and symptoms of acute CVA. Medical history includes HTN, CABG, and dysrhythmia. RADIATION DOSAGE (If Supplied By Facility): CTDIvol = ( 44.99 ) mGy, DLP = ( 829.85 ) mGycm TECHNIQUE: Transaxial CT imaging of the brain was performed without administration of intravenous contrast material. Multiplanar reformations are submitted for interpretation. Individualized dose optimization techniques were used for this CT. COMPARISON: No relevant priors. FINDINGS: Normal soft tissue structures. Normal calvarium. There is mild cerebral atrophy with widening of the extra-axial spaces and moderate ventricular dilatation. There are areas of decreased attenuation within the white matter tracts of the supratentorial brain, consistent with microvascular disease changes. There is encephalomalacia within the right temporal lobe consistent with old infarct. This appears similar to previous CT. Normal basal ganglia and thalami. Normal brainstem. There is mild cerebellar atrophy. There is no intracranial hemorrhage. There are no findings of an acute ischemic infarction. There is opacification of the maxillary sinuses. There is opacification of several ethmoid sinuses greater on the left than the right. CT/Brain/Head without Contrast IMPRESSION: 1. Chronic involutional changes of the brain. 2. Moderate ventriculomegaly could be secondary to hydrocephalus. 3. No CT evidence of acute intracranial hemorrhage. Electronically Signed: Lelsey Sweeney MD at 6:45 EDT , Service support ,
--- NOTE | 2019-09-20 06:26 | CT_ITS ---
STUDY: CTA HEAD AND NECK WITH CONTRAST REASON FOR EXAM: Male, 84 years old patient with acute neural deficits. RADIATION DOSAGE (If Supplied By Facility): CTDIvol = ( 32.71 ) mGy, DLP = ( 723.23 ) mGycm TECHNIQUE: CT angiography was performed with a multi-detector CT scanner. Data acquisition was obtained from the skull base through the vertex following intravenous administration of 100 ml of Isovue 370. MIP images were reconstructed from the axial data set. Post-processing of the angiographic images was performed, with multiplanar reformation and 3D reconstruction. Individualized dose optimization techniques were used for this CT. COMPARISON: CTA of the head and neck dated October 13, 2018. FINDINGS: Normal bilateral petrous carotid arteries. Normal right cavernous carotid artery with a normal supraclinoid bifurcation. Normal left cavernous carotid artery with a normal supraclinoid bifurcation. Normal right A1 segments of the anterior cerebral artery. Normal left A1 segments of the anterior cerebral artery. Normal intact anterior communicating artery (ACOM). Normal bilateral A2 segments of the anterior cerebral arteries. Normal right M1 and M2 segments of the middle cerebral arteries, with a normal M1 bifurcation. Normal left M1 and M2 segments of the middle cerebral arteries, with a normal M1 bifurcation. Normal right posterior communicating artery (PCOM). There is non-visualization of the left posterior communicating artery (PCOM). There is a small atretic right vertebral artery with a dominant left vertebral artery. Normal basilar artery with a normal basilar bifurcation. The visualized bilateral superior cerebellar (SCA) arteries are normal. Normal bilateral P1, P2 and visualized P3 segments of the posterior cerebral arteries. There is no demonstrated aneurysm of the the [place]. There is moderate ventriculomegaly. There is encephalomalacia of the right temporal lobe consistent with old infarct. AORTIC ARCH: Normal visualized aortic arch. Normal origins of the brachiocephalic, left common carotid, and left subclavian arteries. RIGHT CAROTID ARTERIES: There is atherosclerotic tortuous elongation of the right common carotid artery. There is mild atherosclerotic plaque formation with minimal narrowing of the right carotid bulb. Normal origin of the right internal carotid (ICA) artery without a hemodynamically significant stenosis. Normal visualized cervical portion of the right internal carotid artery. Normal origin of the right external carotid artery (ECA). LEFT CAROTID ARTERIES: There is atherosclerotic tortuous elongation of the left common carotid artery. There is moderate atherosclerotic plaque formation with moderate narrowing of the carotid bulb. Normal origin of the left internal carotid (ICA) artery without a hemodynamically significant stenosis. There is atherosclerotic tortuous elongation of the cervical portion of the left internal carotid artery. Normal origin of the left external carotid artery (ECA). VERTEBRAL ARTERIES: There is enhancement within the bilateral vertebral arteries with an atretic right vertebral artery, and a dominant left vertebral artery. NECK ANATOMY: Normal bilateral parotid glands. Normal bilateral shank turner spaces. Normal bilateral parapharyngeal spaces. Normal bilateral carotid spaces. Normal bilateral sublingual and submandibular glands. . There is a large sialolith medial to the left submandibular gland that measures approximately 1.3 cm in greatest dimension. Normal visualized nasopharynx. Normal retropharyngeal space. Normal perivertebral space. Normal visualized bilateral faucial tonsils. The visualized tongue, tongue base and oropharynx are normal. The visualized cervical lymph nodes (levels I-) are within normal size limits, and maintain normal morphology. There is no demonstrated solid or cystic mass lesion. There is no abnormal contrast enhancement. Normal epiglottis, bilateral vallecula and hypopharynx. The pre-epiglottic and paraglottic adipose spaces are normal. Normal visualized bilateral piriform sinuses, aryepiglottic folds, vocal cords, and arytenoid-cricoid articulations. Normal subglottic trachea. Normal bilateral lobes of the thyroid gland. Normal visualized pulmonary apices. There is complete opacification of the maxillary sinuses. There is also mucosal thickening within several ethmoid sinuses as well as the frontal sinuses. There is multilevel degenerative changes of the cervical spine. Patient has had a sternotomy. CT/CTA Head AND Neck W/ Contrast IMPRESSION: 1. No CT evidence for hemodynamically significant stenosis, acute thrombosis, dissection or aneurysm. 2. Large left sided submandibular sialolith. 3. Moderately severe paranasal sinus disease. N.B. : The above information has been verbally conveyed by Lesley Sweeney MD to Timothy Gomes M.D., MD, on 09/20/2019 07:08:43 (ET). Electronically Signed: Lesley Sweeney MD at 7:17 EDT , Service support ,
--- NOTE | 2019-09-20 06:26 | ED.VIS.STROK ---
History of Present Illness Chief Complaint: Neuro S/Sx Informant: Patient, Significant Other Onset: - - Last known well September. states she found him in the file room at 0400. Apparently had trouble using the left side after using the commode. Context: Sudden Onset Timing: Continuous Quality and Location: Left Arm Parasthesia, Left Leg Parasthesia, Left Arm Weakness, Left Leg Weakness, Difficulty with Ambulation Onset: Uncertain last known well 2129 on September 18 Current Severity: Moderate Maximum Severity: Moderate Worsened by: Nothing Relieved by: Nothing Associated Symptoms: Negative for: Headache, Nausea, Vomiting, Chest Pain Narrative: Patient is an elderly male with history of atrial fibrillation on Eliquis and prior stroke who presents because of numbness and weakness left side. He is not a good informant. was allowed to come back and she supplemented what she could. Prior similar symptoms: Yes Recent Illness/Hospitalization: No - Past Medical History (1) Ischemic cerebrovascular accident (CVA) Status: Acute (2) TIA (transient ischemic attack) Status: Acute (3) AICD (automatic cardioverter/defibrillator) present Status: Chronic (4) COPD (chronic obstructive pulmonary disease) Status: Chronic (5) Chronic anticoagulation Status: Chronic Comment: Pradaxa (6) Chronic atrial fibrillation Status: Chronic (7) Coronary artery disease Status: Chronic (8) Former smoker Status: Chronic (9) GERD (gastroesophageal reflux disease) Status: Chronic (10) Hyperbilirubinemia Status: Chronic (11) Hyperlipidemia Status: Chronic (12) Hypertension Status: Chronic (13) Obesity Status: Chronic (14) Obstructive sleep apnea Status: Chronic Comment: on BIPAP (15) Systolic congestive heart failure Status: Chronic (16) 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 Comment: Tinnitus, hearing loss and vertigo Past Medical History - Allergies and Home Meds Allergies/Adverse Reactions: Allergies Penicillins [PCN] Allergy (Verified 09/20/19 06:23) Rash Sulfa (Sulfonamide Antibiotics) Allergy (Verified 09/20/19 06:23) Rash Primary Care Physician: Torin Noyola MD [Primary Care Provider] - Prior records reviewed: Yes Surgical History: cataract - Bilateral, cholecystectomy, coronary bypass surgery, herniorrhaphy - Left inguinal, pacemaker implantation - PM/AICD, - - PTCA/MATTHEW Lives: Spouse/ Significant Other Smoking Status: Former smoker Alcohol: None Drugs: None - Family History Sibling Family History: Family History (Last Updated 10/13/18 @ 03:[address] Gerald Odell MD) Mother Myocardial infarction Sister Tuberculosis Father Peripheral artery disease Family History: Reports: Cancer - brother with prostate CA Review of Systems General: Denies: Chills, Fever, Malaise, Subjective Eyes: Denies: Visual changes - bilaterally, Blurred Vision - bilaterally, Diplopia ENT: Reports: -. Denies: Rhinorrhea, Sore throat Cardiovascular: Denies: Chest pain, Palpitations Respiratory: Denies: Dyspnea, Cough, Sputum, Dyspnea on exertion Gastrointestinal: Denies: Abdominal pain, Nausea, Vomiting, Diarrhea Genitourinary: Denies: Dysuria, Hematuria, Frequency Musculoskeletal: Reports: Swelling. Denies: Myalgias, Arthralgias, Extremity Pain Skin: Denies: Rash Neurological: Reports: Weakness, Parasthesia, Numbness. Denies: Headache Endocrine: Denies: Polyuria, Polydipsia Hematologic: Reports: Easy bruising Allergy: Denies: Uticaria STROKE Vital Signs/Narrative: Vital Signs Temp Pulse Resp BP Pulse Ox 09/20/19 06:18 98.0 F 118 H 16 166/104 H 99 Inital Vital Signs reviewed: Yes - NIHSS Initial 1a Level of Consciousness: 0 1b LOC Questions (Score 2 if aphasic/stupor): 1 1c LOC Commands (Only score 1st attempt): 0 2 Best Gaze (If aphasic, use reflexive mvmts.): 1 3 Visual: 0 4 Facial Palsy: 0 5 Motor Arm Right (UN = amputation/fusion): 0 5 Motor Arm Left: 1 6 Motor Leg Right: 0 6 Motor Leg Left: 1 7 Limb ataxia (Only + if out of proportion): 0 8 Sensory (Aphasia/stupor=0 or 1, coma=2): 1 9 Best Language: 1 10 Dysarthria (mute, coma=2, intubated=UN): 0 11 Extinction and Inattention (only scored if +): 1 Total Score: 7 General: Well nourished, Well developed, Obese Head: Normocephalic, Atraumatic Eyes: Perrl, - - Eyes deviated to the left ENT: Moist mucous membranes, No rhinorrhea, TM's clear Neck: Supple, Nontender, No lymphadenopathy, No JVD Cardiovascular: No murmurs, Irregular, Tachycardia Respiratory: No distress, CTA bilaterally, Chest nontender Abdomen: Soft, Nontender, Nondistended, Normal bowel sounds Rectal: Deferred Back: Nontender Extremities: Nontender, Edema Skin: Normal color, No rash, No Trauma. Negative for: Cyanosis, Diaphoresis, Jaundice Neurological: Alert, Cranial nerves II-XII grossly intact, Normal Gait. Negative for: Oriented x3, Normal Strength, Normal Sensation, Normal DTR - Patient with Babinski sign on the left. Psychological: Normal affect Diagnostic/Tx/Re-eval Impressions Brain CT 09/20/19 06:24 IMPRESSION: 1. Chronic involutional changes of the brain. 2. Moderate ventriculomegaly could be secondary to hydrocephalus. 3. No CT evidence of acute intracranial hemorrhage. Electronically Signed: Lesley Sweeney MD at 6:45 EDT , Service support , ADDENDUM: 09/20/19 0654 IMPRESSION: 1. Chronic involutional changes of the brain. 2. Moderate ventriculomegaly could be secondary to hydrocephalus. 3. No CT evidence of acute intracranial hemorrhage. N.B. : The above information has been verbally conveyed by Lesley Sweeney MD to Giovanny Gomes MD, on 09/20/2019 06:47:36 (ET). Electronically Signed: Lesley Sweeney MD at 6:45 EDT , Service support , 09/20/19 06:24 Brain/Head without Contrast [CT] Stat Chest 1 View [RAD] Stat 09/20/19 06:26 CTA Head AND Neck W/ Contrast [CT] Stat Laboratory Results 09/20/19 09/20/19 09/20/19 06:23 06:50 06:50 WBC 6.6 RBC 4.02 L Hgb 12.7 L Hct 38.6 L MCV 96.0 H MCH 31.6 MCHC 32.9 RDW Std Deviation 46.6 H RDW Coeff of Theresa 13.1 Plt Count 216 MPV 10.1 Immature Gran % (Auto) 0.500 Neut % (Auto) 76.2 H Lymph % (Auto) 11.4 L [place] % (Auto) 8.2 Eos % (Auto) 2.9 Baso % (Auto) 0.8 Absolute Neuts (auto) 5.0 Absolute Lymphs (auto) 0.75 L Nucleated RBC % 0 PT Cancelled INR Cancelled APTT Cancelled Sodium Potassium Chloride Carbon Dioxide Anion Gap BUN Creatinine Estim Creat Clear Calc Est GFR (MDRD) Af Amer Est GFR (MDRD) Non-Af BUN/Creatinine Ratio Glucose Calcium Troponin I POC Glucose 102 09/20/19 06:50 WBC RBC Hgb Hct MCV MCH MCHC RDW Std Deviation RDW Coeff of Theresa Plt Count MPV Immature Gran % (Auto) Neut % (Auto) Lymph % (Auto) [place] % (Auto) Eos % (Auto) Baso % (Auto) Absolute Neuts (auto) Absolute Lymphs (auto) Nucleated RBC % PT INR APTT Sodium 139 Potassium 3.5 Chloride 107 Carbon Dioxide 27.0 Anion Gap 5 BUN 11 Creatinine 0.94 Estim Creat Clear Calc 55.67 Est GFR (MDRD) Af Amer 99 Est GFR (MDRD) Non-Af 82 BUN/Creatinine Ratio 11.8 Glucose 112 H Calcium 8.7 Troponin I 0.130 H POC Glucose Bone is elevated which is nonspecific. Basic metabolic panel is unremarkable. He is unremarkable. Coags were canceled and need to be redrawn. - Rhythm Strip Rhythm Strip: A-fib Rate: 103 Ectopy: None - EKG Initial EKG Interpretation: Atrial Fibrillation - Atrial fibrillation with a ventricular rate 101. There is evidence of a [place] beats versus premature ventricular beats. QRS duration 148 ms and QRS configuration of a right bundle branch block. QT interval 346 ms. [place] to the right. No acute ischemic changes noted. - Medical Decision Making Stroke Team Activated: Yes Reviewed Inclusion/Exclusion criteria: Yes IV Alteplase (t-PA) Administered: No - on Eliquis No contraindications for IV Alteplase (t-PA) administration.: No - On anticoagulant Alteplase (t-PA) risks, benefits, alternative discussed: No Presents with strokelike symptoms. Last known well 2129. He is on Eliquis therefore he is not a thrombolytic candidate. Need to evaluate for ischemic versus hemorrhagic stroke versus tumor. Stroke order set was initiated. Stroke team was activated. Patient's case was discussed with Dr. Brown at [facility], 0637. Radiologist called with CTA results at 0708. He saw no significant hemodynamic abnormality nor did he see an acute clot. Based on discussion with Dr. Brown patient will be admitted to [facility] for completion of stroke work-up. The hospitalist was paged. 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
[2019-09-20 06:31] LABS: Bedside Glucose 102 mg/dL (70-110)
--- NOTE | 2019-09-20 06:53 | ED.RN ---
0640 [facility] CALLED AND NOTIFIED OF RULE OUT STROKE.
--- NOTE | 2019-09-20 06:53 | ED.RN ---
0628 NOTIED [facility] OF POSSIBLE STROKE.
[2019-09-20 06:54] LABS: Absolute Lymphocyte Count 0.75 X10^3/uL (0.83-4.51); Basophil# 0.05 X10^3/uL; Basophil% 0.8 % (0-1); Eosinophil# 0.19 X10^3/uL; Eosinophils% 2.9 % (0-5); Hematocrit 38.6 % (40-54); Hemoglobin 12.7 g/dL (13.0-16.5); Lymphocyte # 0.75 X10^3/ul (4.0); Lymphocyte % 11.4 % (19-41); Mean Corp Hgb Conc 32.9 g/dL (32-36); Mean Corpuscular Hgb 31.6 pg (27.0-32.0); Mean Platelet Vol. 10.1 fl (6.2-12.0); Monocyte# 0.54 X10^3/uL; Monocyte% 8.2 % (0-10); NRBC Flagged by Analyzer 0 % (0-5); Neutrophil % 76.2 % (47-70); Platelet Count 216 K/mm3 (150-450); RBC Distribution Width CV 13.1 % (11.6-14.6); RBC Distribution Width SD 46.6 fl (35.1-43.9); Red Blood Count 4.02 M/mm3 (4.6-6.2); White Blood Count 6.6 K/mm3 (4.4-11.0)
[2019-09-20 07:11] LABS: Anion Gap 5 (5-15); BUN 11 mg/dL (7-18); BUN/Creat Ratio 11.8 RATIO (10-20); Calcium,Total 8.7 mg/dL (8.5-10.1); Chloride 107 mmol/L (98-107); Creatinine, Serum 0.94 mg/dL (0.70-1.30); EST Glomerular Filtration Rate 82 mL/min (>60); Est Glom Filt Rate - Afr Amer 99 mL/min (>60); Estimated Creatinine Clearance 55.67 ml/min; Glucose 112 mg/dL (74-106); Potassium 3.5 mmol/L (3.5-5.1); Sodium Level 139 mmol/L (136-145)
--- NOTE | 2019-09-20 07:12 | HP.PCM_ITS ---
History of Present Illness Date of Admission: 09/20/19 Chief Complaint: left leg numbness The patient is a 84 year old M with an extensive past medical history as outlined was admitted through the ED on 09/20/2019 with a complaint of left lower extremity numbness and weakness. Patient states he woke up and the bathroom and subsequently felt like his left lower extremity was weak with tingling. He did not fall and had no gait instability and denied any slurring of speech, blurred vision, or any dizziness or lightheadedness. He came into the ED because he was concerned about strokelike symptoms. CT of the brain showed chronic involutional changes with moderate ventriculomegaly which will be due to his hydrocephalus but no evidence of acute intracranial hemorrhage. No CT evidence of hemodynamically significant stenosis, acute thrombosis or dissection or aneurysm was seen on the head and neck CTA and it only showed large left-sided submandibular sialolith with moderately severe paranasal sinus disease. Patient was admitted to be managed for TIA as symptoms of left lower extremity had resolved at time of admission. However at time I reviewed patient, patient was clutching his chest saying that he was having severe pain. Patient was denied of chest pain but kept on saying it was like he was being kicked in the chest. He was also noted to be tachycardic at that time an EKG done showed A. fib with RVR. Troponin admission in the ED was 0.130. However start repeat troponin after he was complaining of chest pain showed troponin had gone up to 2. Cardiology was immediately consulted. He was also put back on his beta-blockers which he had not taken today. Cardiology reviewed patient and based on his previous history of having had stents put in at [facility], this was discussed with patient and patient decided that if he did need stents, he would prefer to go to [facility] to have the stents put in. Patient received sublingual nitroglycerin and p.o. aspirin as well as IV morphine. [facility] transfer line was called, and patient was accepted to the service of Dr. Kim of cardiology. Past Medical History Past Medical History (Chronic Problems): Chronic Problems Hypertension (Chronic) Coronary artery disease (Chronic) Chronic atrial fibrillation (Chronic) Chronic anticoagulation (Chronic) Pradaxa GERD (gastroesophageal reflux disease) (Chronic) Obesity (Chronic) Systolic congestive heart failure (Chronic) Hyperbilirubinemia (Chronic) COPD (chronic obstructive pulmonary disease) (Chronic) History of coronary artery bypass graft (Chronic) 2004 Former smoker (Chronic) Hyperlipidemia (Chronic) Osteoarthritis (Chronic) Obstructive sleep apnea (Chronic) on BIPAP AICD (automatic cardioverter/defibrillator) present (Chronic) Allergies Penicillins [PCN] Allergy (Verified 09/20/19 06:23) Rash Sulfa (Sulfonamide Antibiotics) Allergy (Verified 09/20/19 06:23) Rash Home Medications: Ambulatory Orders Medication Instructions Recorded Atorvastatin Calcium [Lipitor] 80 mg PO QHS 09/15/13 Carvedilol 6.25 mg PO BID 09/15/13 Furosemide [Lasix] 20 mg PO DAILY 09/15/13 Lisinopril 40 mg PO DAILY 09/15/13 Zolpidem Tartrate [Ambien] 5 mg PO QHS PRN PRN 09/15/13 Albuterol Inhaler [Ventolin Hfa] 1 - 2 puff INHALATION Q4H PRN PRN 07/20/15 #1 inhaler Mometasone/Formoterol [Dulera 200 8.8 gm IH DAILY 07/20/15 Mcg/5 Mcg Inhaler] Apixaban [Eliquis] 5 mg PO BID #60 tab 06/30/17 Aspirin [Aspirin, Baby] 81 mg PO DAILY@0800 tab.chew 06/30/17 Ipratropium/Albuterol Respimat 1 puff INHALATION 4X/DAY 09/20/19 [Combivent Respimat Inhal [place]] Surgical History: cataract - Bilateral, cholecystectomy, coronary bypass surgery, herniorrhaphy - Left inguinal, pacemaker implantation - PM/AICD, - - PTCA/MATTHEW Psychiatric History: No pertinent psych hx Lives: Spouse/ Significant Other Smoking Status: Former smoker Alcohol: None Drugs: None - *Family History Sibling Family History: Family History (Last Updated 10/13/18 @ 03:[address] Gerald Odell MD) Mother Myocardial infarction Sister Tuberculosis Father Peripheral artery disease History Items: Cancer - brother with prostate CA Review of Systems Constitutional: Denies: Chills, Fever, Malaise, Weakness, Weight Change HEENT: Denies: Head Aches, Sinus Congestion, Sinus Drainage Cardiovascular: Reports: Chest Pain, Chest Pressure. Denies: Chest Tightness, Palpitations Respiratory: Denies: Cough, Shortness of Breath, Shortness of breath at rest, Shortness of breath upon exertion, Sputum production Gastrointestinal: Denies: Abdominal Pain, Nausea, Vomiting Genitourinary: Denies: Dysuria Musculoskeletal: Denies: Joint Pain, Joint Tenderness Skin: Denies: Rash, Wounds Neurological: Denies: Numbness, Tingling, Focal weakness Psychiatric: Denies: Anxiety, Depression, Homicidal Ideations, Suicidal Ideations Hematologic/ Lymphatic: Denies: Easy Bruising, Easy Bleeding VTE Information - Inpt Only VTE Present on Admission: No Patient Problems: Active and Suspected Problems CVA (cerebral vascular accident) (Acute) Atrial fibrillation (Acute) - Physical Exam Vitals/I&O's: Vital Signs Temp Pulse Resp BP Pulse Ox 98.0 F 94 16 150/80 H 96 09/20/19 06:20 09/20/19 06:50 09/20/19 06:50 09/20/19 07:09 09/20/19 06:50 Oxygen Delivery Method Room Air Weight: 213 lb 9.6 oz Body Mass Index (BMI) 33.4 Finger Stick Blood Glucose 102 General: Alert, Oriented x3, Cooperative, - - in moderate distress due to chest pain. HEENT: Atraumatic, PERRLA, EOMI, Normocephalic Oral: Moist Mucosa Neck: Supple, No JVD, Negative Carotid Bruits Lungs: Clear to auscultation, Normal air movement, No rhonchi, No wheeze Cardiovascular: Irregular Rate, Tachycardic - afib with RVR Abdomen: Bowel Sounds Present, Soft, Non Tender, Non-Distended, No Hepato- splenomegaly Extremities: No edema, Capillary Refill Less than 3 Seconds Skin: No rashes, No breakdown Musculoskeletal: No Tenderness to Palpation of Joints or Extremities Lymphatic: No Cervical, Supraclavicular, or Inguinal Adenopathy Neurological: Cranial nerves II-XII grossly intact, Neuro grossly intact, Motor Exam 5/5 strength throughout Psych/Mental Status: Agitated, Alert and oriented to time, place, person, mood and affect Laboratory Results 09/20/19 06:23: POC Glucose 102 09/20/19 06:50: WBC 6.6, RBC 4.02 L, Hgb 12.7 L, Hct 38.6 L, MCV 96.0 H, MCH 31.6, MCHC 32.9, RDW Std Deviation 46.6 H, RDW Coeff of Theresa 13.1, Plt Count 216, MPV 10.1, Immature Gran % (Auto) 0.500, Neut % (Auto) 76.2 H, Lymph % (Auto) 11.4 L, [place] % (Auto) 8.2, Eos % (Auto) 2.9, Baso % (Auto) 0.8, Absolute Neuts (auto) 5.0, Absolute Lymphs (auto) 0.75 L, Nucleated RBC % 0 09/20/19 06:50: PT Cancelled, INR Cancelled, APTT Cancelled 09/20/19 06:50: Sodium 139, Potassium 3.5, Chloride 107, Carbon Dioxide 27.0, Anion Gap 5, BUN 11, Creatinine 0.94, Estim Creat Clear Calc 55.67, Est GFR (MDRD) Af Amer 99, Est GFR (MDRD) Non-Af 82, BUN/Creatinine Ratio 11.8, Glucose 112 H, Calcium 8.7, Troponin I 0.130 H 09/20/19 06:50: PT Pending, INR Pending, APTT Pending Diagnostic Data Brain CT 09/20/19 06:24 IMPRESSION: 1. Chronic involutional changes of the brain. 2. Moderate ventriculomegaly could be secondary to hydrocephalus. 3. No CT evidence of acute intracranial hemorrhage. Electronically Signed: Lesley Sweeney MD at 6:45 EDT , Service support , ADDENDUM: 09/20/19 0654 IMPRESSION: 1. Chronic involutional changes of the brain. 2. Moderate ventriculomegaly could be secondary to hydrocephalus. 3. No CT evidence of acute intracranial hemorrhage. N.B. : The above information has been verbally conveyed by Lesley Sweeney MD to Giovanny Gomes MD, on 09/20/2019 06:47:36 (ET). Electronically Signed: Lesley Sweeney MD at 6:45 EDT , Service support , Head/Neck CTA 09/20/19 06:26 IMPRESSION: 1. No CT evidence for hemodynamically significant stenosis, acute thrombosis, dissection or aneurysm. 2. Large left sided submandibular sialolith. 3. Moderately severe paranasal sinus disease. N.B. : The above information has been verbally conveyed by Lesley Sweeney MD to Timothy Gomes M.D., MD, on 09/20/2019 07:08:43 (ET). Electronically Signed: Lesley Sweeney MD at 7:17 EDT , Service support , ADDENDUM: 09/20/19 0724 IMPRESSION: 1. No CT evidence for hemodynamically significant stenosis, acute thrombosis, dissection or aneurysm. 2. Large left sided submandibular sialolith. 3. Moderately severe paranasal sinus disease. N.B. : The above information has been verbally conveyed by Lesley Sweeney MD to Timothy Gomes M.D., MD, on 09/20/2019 07:08:43 (ET). Electronically Signed: Lesley Sweeney MD at 7:17 EDT , Service support , Chest X-Ray 09/20/19 07:18 IMPRESSION: Cardiomegaly with evidence of pulmonary edema and apparently chronic left-sided pleural effusion. Electronically Signed: Lesley Sweeney MD at 7:56 EDT , Service support , Current Medications Labetalol HCl (Trandate) 20 mg IV X1 PRN PRN Reason: BLOOD PRESSURE Assessment/Plan All Active Problems Stroke-like symptoms (Acute) CVA (cerebral vascular accident) (Acute) Atrial fibrillation (Acute) Ischemic cerebrovascular accident (CVA) (Acute) Hearing loss (Acute) History of PTCA 1 (Acute) Difficulty walking (Acute) Speech disturbance (Acute) TIA (transient ischemic attack) (Acute) 1. Nonstemi * troponin was initially 0.13 and trended up to 2 as patient was complaining of chest pain. * EKG showed A. fib with RVR and showed no acute ST changes. 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 2. TIA * NIH stroke scale was 0 at time of admission. CTA of the head and neck showed no evidence of any more dynamically significant stenosis and CT of the brain was also negative. * Patient could not have an MRI as he had a pacemaker in place that was not MRI compatible. * Neurology was consulted. However patient was transferred to [facility] before neurology could see him. I did discuss with Dr. Kim the accepting physician that patient would need evaluation by neurology once he arrived at [facility]. 3. Afib with RVR * Patient's heart rate went up in the 120s and 130s as the chest pain was persistent. * On Eliquis. Cardiology consulted. * Patient placed on his home dose of p.o. carvedilol 6.25 mg twice daily. * 4.CAD s/p stents: Had stents previously placed at [facility]. On aspirin, carvedilol and Imdur. Also on statin. 5. Hypertension: On lisinopril and carvedilol. DVT prophylaxis: Patient already on Eliquis. Position: Patient transferred emergently to [facility] to the service of Dr. Kim. Inpatient E&M: 37613 In Hosp L3
--- NOTE | 2019-09-20 07:15 | NURSING ---
PCU [facility] CVA, ATRIAL FIBRILLATION
--- NOTE | 2019-09-20 07:18 | RAD_ITS ---
STUDY: X-RAY CHEST REASON FOR EXAM: Male, 84 years old patient with dyspnea. TECHNIQUE: Single AP portable view of the chest. COMPARISON: December 21, 2018. FINDINGS: The patient is a left-sided intracardiac pacemaker. Patient has had a sternotomy. Cardiac monitoring leads are present. The lungs are hyperexpanded with mild prominence of bronchovascular markings. There appears to be left basilar airspace disease and/or pleural effusion. There appears to be a small left-sided pleural effusion. There is mild cardiac enlargement. Normal mediastinum and vee. There is prominence of the pulmonary hilar arteries with peripheral pulmonary vascular congestion. There is atherosclerotic calcification of the aortic arch with tortuosity. Normal visualized thoracic spine. There are degenerative changes of both shoulders. There is no demonstrated abnormality of the visualized soft tissue structures of the upper abdomen. RAD/Chest 1 View IMPRESSION: Cardiomegaly with evidence of pulmonary edema and apparently chronic left-sided pleural effusion. Electronically Signed: Lesley Sweeney MD at 7:56 EDT , Service support ,
[2019-09-20 07:20] LABS: International Normalized Ratio 1.1; Prothrombin Time (Protime)PT. 13.4 SECONDS (11.7-14.9)
[2019-09-20] MEDS: Morphine 2 MG/ML Syringe 1 MG IV (09:30)
[2019-09-20] MEDS: Metoprolol Tartrate 5 MG/5 ML Vial 2.5 MG IV (09:30)
[2019-09-20] MEDS: Nitroglycerin (INPATIENT USE) 0.4 MG TAB.SUBL SUBLINGUAL ×3 (09:30→09:48)
[2019-09-20] MEDS: 0.9% Saline Lock 10 ML Syringe IV (09:30)
[2019-09-20] MEDS: Aspirin 325 MG Tablet PO (09:40)
--- NOTE | 2019-09-20 09:54 | EKG12_ITS ---
Test Reason : CP Blood Pressure : / mmHG Vent. Rate : 115 BPM Atrial Rate : 125 BPM P-R Int : 000 ms QRS Dur : 140 ms QT Int : 316 ms P-R-T Axes : -79 -64 078 degrees QTc Int : 437 ms Atrial fibrillation Left axis deviation Right bundle branch block Abnormal ECG Confirmed by FRANC LUCAS, DAVY ([id number]), associate entertainment editor DARIEL IRELAND ([id number]) on 09/27/2019 3:52:36 PM Referred By: VANESSA Confirmed By:DAVY BRUNER MD
--- NOTE | 2019-09-20 10:04 | ECHOCS_ITS ---
Reason For Study: Chest pain Procedure This was a 2D Doppler, Color Flow transthoracic echocardiogram. The study was technically difficult. Negative bubble study x 2 on previous echoes. Contrast injection was performed. Exam performed portable in patient room. Left Ventricle Moderately dilated left ventricle. Moderate segmental systolic dysfunction (see wall motion). The estimated ejection fraction is 35 %. Unable to assess diastolic dysfunction. Posterior-Basal: Hypokinetic. Infero-Basal: Hypokinetic. Mid-Anterior : Akinetic. Mid-Inferior: Hypokinetic. Mid- anteroseptal : Hypokinetic. [place] : Akinetic. Right Ventricle Normal RV size. ICD or pacer leads identified within the right ventricle. Normal systolic function. Atria The left atrium is severely enlarged. The right atrium is mildly enlarged. ICD or pacer leads identified within the right atrium. No doppler evidence for ASD. Mitral Valve There is no mitral annular calcification. Mild focal mitral valve calcification of the anterior leaflet. Mild (1+) mitral valve insufficiency. Tricuspid Valve Normal tricuspid valve. Mild tricuspid valve insufficiency. Right ventricular systolic pressure estimated to be 27 mmHg. Aortic Valve Trisinus/trileaflet aortic valve. Moderate focal aortic valve calcification. Mild (1+) aortic valve insufficiency. Pulmonic Valve The pulmonic valve is not well visualized. Trivial pulmonic valve insufficiency. Great Vessels Normal sized aortic root. Calcified aortic root. Pericardium/Pleural No pericardial effusion. Medication Diluted definity 3ml given slow IV push to enhance endocardial definition. MMode/2D Measurements & Calculations LVIDd: 6.1 cm IVSd: 1.0 cm LVOT diam: 2.1 cm LVIDs: 4.9 cm LVPWd: 0.86 cm RVDd: 3.8 cm FS: 20.2 % LVOT area: 3.4 cm2 Ao root diam: 2.7 cm LAV(MOD-bp): 133.2 ml LA A4 area: 32.5 cm2 LAV(MOD-bp) Indexed: 65.4 ml/m2 LAV(MOD-sp2): 142.5 ml LAV(MOD-sp4): 122.8 ml LA dimension(2D): 6.4 cm RA A4 area: 24.3 cm2 Doppler Measurements & Calculations MV E max luis: 91.2 cm/sec Ao V2 max: 178.9 cm/sec LV V1 max: 108.1 cm/sec Ao max P.8 mmHg LV V1 max P.7 mmHg Ao V2 mean: 127.8 cm/sec LV V1 mean P.6 mmHg Ao mean P.2 mmHg LV V1 mean: 76.4 cm/sec Ao V2 VTI: 34.6 cm LV V1 VTI: 19.8 cm ABHIJEET(I,D): 1.9 cm2 ABHIJEET(V,D): 2.0 cm2 SV(LVOT): 66.5 ml PA V2 max: 84.7 cm/sec TR max luis: 245.3 cm/sec TR max P.2 mmHg Interpretation Summary The study was technically difficult. Contrast injection was performed. Moderately dilated left ventricle. Moderate segmental systolic dysfunction (see wall motion). The estimated ejection fraction is 35 %. The left atrium is severely enlarged. Mild focal mitral valve calcification of the anterior leaflet. Mild (1+) mitral valve insufficiency. Mild tricuspid valve insufficiency. Moderate focal aortic valve calcification. Mild (1+) aortic valve insufficiency. Trivial pulmonic valve insufficiency. Calcified aortic root. Right ventricular systolic pressure estimated to be 27 mmHg. Unable to assess diastolic dysfunction. ICD or pacer leads identified within the right atrium ICD or pacer leads identified within the right ventricle. Ordering Physician: Marcelina Vogel Referring Physician: Torin Noyola M.D. Performed By: Antonette Colvin RDCS
--- NOTE | 2019-09-20 10:30 | CON.PCM_ITS ---
<Ruben Gonzalez - Last Filed: 09/20/19 12:44> Problem List (1) Coronary artery disease Status: Chronic (2) Chronic atrial fibrillation Status: Chronic (3) Systolic congestive heart failure Status: Chronic (4) History of coronary artery bypass graft Status: Chronic Comment: 2003 Reason for Consult Date of Consultation: 09/20/19 Reason for Consultation: chest pain, CAD history History of Present Illness: This is a 84-year-old male who presented to [facility] Emergency Department on 09/20/2019 with numbness and weakness on the left side. He has a history of coronary artery disease status post CABG, ischemic cardiomyopathy, permanent pacemaker placement, CVA, and COPD. Patient's cardiovascular care is completed at [facility]. He was last evaluated at [facility] in October 2018 to further rule out CVA. Per patient was looking for a file I to see if his insurance was under his name or his mom's. It was then noted that his hand was not working and his balance was off. There was no slurred speech noted. Because of previous CVA and confusion they presented to ED. He underwent a head/neck CTA in the Emergency Department that showed no hemodynamically significant stenosis, acute thrombosis, dissection, or aneurysm. His brain CT scan showed no evidence of acute intracranial hemorrhage. His EKG showed atrial fibrillation at a rate of 101 bpm with underlying right bundle branch block. His initial troponin was noted be 0.130. His chest x-ray showed cardiomegaly with evidence of pulmonary edema and apparently chronic left-sided pleural effusion. He was admitted for further stroke work-up. While admitted to PCU, patient had episode of chest pain that resolved with nitroglycerin and morphine. Thus, cardiology was consulted for further input. Past Medical History Allergies/Adverse Reactions: Allergies Penicillins [PCN] Allergy (Verified 09/20/19 06:23) Rash Sulfa (Sulfonamide Antibiotics) Allergy (Verified 09/20/19 06:23) Rash Home Medications: Ambulatory Orders Medication Instructions Recorded Atorvastatin Calcium [Lipitor] 80 mg PO QHS 09/15/13 Carvedilol 6.25 mg PO BID 09/15/13 Furosemide [Lasix] 20 mg PO DAILY 09/15/13 Lisinopril 40 mg PO DAILY 09/15/13 Zolpidem Tartrate [Ambien] 5 mg PO QHS PRN PRN 09/15/13 Albuterol Inhaler [Ventolin Hfa] 1 - 2 puff INHALATION Q4H PRN PRN 07/20/15 #1 inhaler Mometasone/Formoterol [Dulera 200 8.8 gm IH DAILY 07/20/15 Mcg/5 Mcg Inhaler] Apixaban [Eliquis] 5 mg PO BID #60 tab 06/30/17 Aspirin [Aspirin, Baby] 81 mg PO DAILY@0800 tab.chew 06/30/17 Ipratropium/Albuterol Respimat 1 puff INHALATION 4X/DAY 09/20/19 [Combivent Respimat Inhal Mcdermitt] Past Medical History (Chronic Problems): Chronic Problems Hypertension (Chronic) Coronary artery disease (Chronic) Chronic atrial fibrillation (Chronic) Chronic anticoagulation (Chronic) Pradaxa GERD (gastroesophageal reflux disease) (Chronic) Obesity (Chronic) Systolic congestive heart failure (Chronic) Hyperbilirubinemia (Chronic) COPD (chronic obstructive pulmonary disease) (Chronic) History of coronary artery bypass graft (Chronic) 2003 Former smoker (Chronic) Hyperlipidemia (Chronic) Osteoarthritis (Chronic) Obstructive sleep apnea (Chronic) on BIPAP AICD (automatic cardioverter/defibrillator) present (Chronic) Surgical History: cataract - Bilateral, cholecystectomy, coronary bypass surgery, herniorrhaphy - Left inguinal, pacemaker implantation - PM/AICD, - - PTCA/MATTHEW Psychiatric History: No pertinent psych hx - *Family History Sibling Family History: Family History (Last Updated 10/13/18 @ 03:[address] Gerald Odell MD) Mother Myocardial infarction Sister Tuberculosis Father Peripheral artery disease History Items: Cancer - brother with prostate CA Lives: Spouse/ Significant Other Smoking Status: Former smoker Alcohol: None Drugs: None Review of Systems - Review of Systems General: Denies: Fever, Fatigue, Weakness Cardiovascular: Reports: Chest Discomfort, Chest Discomfort at Rest. Denies: Chest Discomfort with Exertion, Chest Pressure, Chest Tightness, Chest Heaviness, Shortness of Breath, Shortness of Breath at Rest, Shortness of Breath with Exertion, Orthopnea, PND, Peripheral Edema, Palpitations, Lightheadedness, Dizziness, Near Syncope, Syncope, Claudication Respiratory: Denies: Cough Muscoloskeletal: Denies: Myalgias Neurological: Denies: Dizziness Subjectve: Patient seen and evaluated. He states this morning he got up to use the restroom and noted that his left leg went numb. He then returned to bed and had difficulties adjusting BiPAP machine/harness. Due to frustration, he states that he woke his and asked to come to the Emergency Department. He currently denies any chest pain. He denies any shortness of breath at rest. He denies any orthopnea or PND. He denies any palpitations, lightheadedness, dizziness, or presyncope sensation. He states prior to visit he was in his usual health. Objective: Vital Signs Temp Pulse Resp BP Pulse Ox 98.4 F 115 H 20 H 124/54 H 100 09/20/19 08:45 09/20/19 09:50 09/20/19 08:45 09/20/19 09:50 09/20/19 09:50 Oxygen Flow Rate (L/min) 2 Oxygen Delivery Method Nasal Cannula Weight: 198 lb 13.711 oz Body Mass Index (BMI) 30.2 Finger Stick Blood Glucose 102 General: Healthy Appearing, Awake, Alert, Oriented x 3, Cooperative Oral: Moist Mucosa Neck: No JVD Chest Wall: Midline Sternotomy Incision Lungs: Clear to auscultation Cardiovascular: Irregular Rhythm, Premature Ectopic Beats, Normal S1, Normal S2, No Murmurs, No Rubs, No Gallops Vascular: No Carotid Bruits Extremities: No Cyanosis, No Clubbing, No edema, Normal Capillary Refill Psych/Mental Status: Appropriate, Normal Affect 09/20/19 06:50: WBC 6.6, RBC 4.02 L, Hgb 12.7 L, Hct 38.6 L, MCV 96.0 H, MCH 31.6, MCHC 32.9, Plt Count 216, MPV 10.1, Immature Gran % (Auto) 0.500, Neut % (Auto) 76.2 H, Lymph % (Auto) 11.4 L, Garvin % (Auto) 8.2, Eos % (Auto) 2.9, Baso % (Auto) 0.8, Absolute Neuts (auto) 5.0, Nucleated RBC % 0 09/20/19 06:50: PT Cancelled, INR Cancelled, APTT Cancelled 09/20/19 06:50: Sodium 139, Potassium 3.5, Chloride 107, Carbon Dioxide 27.0, Anion Gap 5, BUN 11, Creatinine 0.94, Est GFR (MDRD) Af Amer 99, Est GFR (MDRD) Non-Af 82, BUN/Creatinine Ratio 11.8, Glucose 112 H, Calcium 8.7, Troponin I 0.130 H 09/20/19 06:50: PT 13.4, INR 1.1, APTT 33.0 Rhythm: EKG: ECHO: 10/13/2018 Interpretation Summary The study was technically difficult. Diluted definity 3ml given slow IV push to enhance endocardial definition. Concentric left ventricular hypertrophy. Mildly dilated left ventricle. The estimated ejection fraction is 40 %. There is evidence of diastolic dysfunction. Normal right atrium. Mild (1+) mitral valve insufficiency. Mild aortic stenosis. Mild (1+) aortic valve insufficiency. The study was technically difficult. Stress Test: Cardiac Cath: PCI: CT Surgery: Holter monitor: EPS: PPM: CXR: Chest CT Scan: Assessment/Plan 1. Non-ST elevated myocardial infarction * Patient's initial troponin was noted to be 0.13. His second troponin was noted be 2.07. He denies any chest pain or exertional shortness of breath prior to Emergency Department visit. He states late morning he noticed right arm discomfort and neck discomfort. This subsided and he noted left arm and left sided chest pain. He was given aspirin 325 mg, metoprolol tartrate IV, and morphine. * Upon exam, patient is resting comfortably and denies any chest pain. * He does have a history of coronary artery bypass x3 in 2004 with subsequent PCI/stenting per his account in approximately 2016. These records are not available for review at this time and will be requested. * We will continue to trend troponin. * He undergo repeat echocardiogram to evaluate LV function and wall motion changes. * He will begin Isordil 10mg PO TID to assist with chest pain and CAD. * His care is also complicated by neurological concerns and complex heart catheterization given previous bypass grafts. Thus, he may benefit from repeat heart catheterization be completed at [facility] if medical management fails. Patient expresses interest in medical management and completing LHC at [facility] if needed. 2. Atrial fibrillation * This appears persistent per his account. He has tried sotalol therapy previously. He appears to be in atrial fibrillation on exam and on telemetry. * His most recent pacemaker evaluation will be requested for review. * He will continue with beta-miguel therapy. * Depending on long-term treatment plan, his Eliquis will need to be held if heart catheterization is desired/indicated. * Per discussion with , he did not take Coreg or Eliquis this morning. Thus he will start Coreg 6.25mg PO BID (home dose) now. 3. Pacemaker placement * It is unclear if this is pacemaker and defibrillator. * It is unclear as to why this was placed previously. * His most recent pacemaker report will be requested for review. * He states that the defibrillator has been turned off. 4. Ischemic cerebrovascular accident * It appears that patient has undergone head CT a brain CT scan that were negative for acute pathology. * Neurology input will be greatly appreciated in regards to choosing anticoagulation of Lovenox versus heparin as his Eliquis is held for possible LHC. * Neurology input regarding confusion will also be greatly appreciated. 5. Hyperlipidemia * He will continue current statin medication. Patient's case was reviewed with Dr. Ding, who will also personally evaluate patient. Please see his dictation for further input and details. Thank you for allowing us to participate in the patients plan of care, if you have any questions please do not hesitate to call. This note was generated using a voice recognition system and there may be inco rrect words, spelling or punctuation that were not noted when reviewing the office note prior to saving. <Eitan Ding - Last Filed: 09/20/19 14:21> Reason for Consult History of Present Illness: The patient is a 84 year old M [] Past Medical History - *Family History Sibling Family History: Family History (Last Updated 10/13/18 @ 03:[address] Gerald Odell MD) Mother Myocardial infarction Sister Tuberculosis Father Peripheral artery disease Objective: Vital Signs Temp Pulse Resp BP Pulse Ox 98.6 F 93 18 115/54 L 96 09/20/19 11:00 09/20/19 11:00 09/20/19 11:00 09/20/19 11:09/20/19 11:00 Oxygen Flow Rate (L/min) 2 Oxygen Delivery Method Room Air Weight: 198 lb 13.711 oz Body Mass Index (BMI) 30.2 Finger Stick Blood Glucose 102 Intake and Output for Last 24 Hours 09/18/19 09/19/19 09/20/19 23:59 23:59 23:59 Intake Total 60 / 60 Output Total 400 / 400 Balance -340 / -340 09/20/19 06:50: WBC 6.6, RBC 4.02 L, Hgb 12.7 L, Hct 38.6 L, MCV 96.0 H, MCH 31.6, MCHC 32.9, Plt Count 216, MPV 10.1, Immature Gran % (Auto) 0.500, Neut % (Auto) 76.2 H, Lymph % (Auto) 11.4 L, Garvin % (Auto) 8.2, Eos % (Auto) 2.9, Baso % (Auto) 0.8, Absolute Neuts (auto) 5.0, Nucleated RBC % 0 09/20/19 06:50: PT Cancelled, INR Cancelled, APTT Cancelled 09/20/19 06:50: Sodium 139, Potassium 3.5, Chloride 107, Carbon Dioxide 27.0, Anion Gap 5, BUN 11, Creatinine 0.94, Est GFR (MDRD) Af Amer 99, Est GFR (MDRD) Non-Af 82, BUN/Creatinine Ratio 11.8, Glucose 112 H, Calcium 8.7, Troponin I 0.130 H 09/20/19 06:50: PT 13.4, INR 1.1, APTT 33.0 09/20/19 10:18: Troponin I 2.070 H* Rhythm: EKG: ECHO: Stress Test: Cardiac Cath: PCI: CT Surgery: Holter monitor: EPS: PPM: CXR: Chest CT Scan: Assessment/Plan Addendum: Date: 09-20-2019 The patient was independently evaluated and examined. In brief, the patient is an 84-year-old white male who apparently has a history, from a cardiac standpoint, of underlying CAD, CABG, PCI, ischemic mediated cardiomyopathy, status post ICD placement (reportedly defibrillator apparatus deactivated/pacemaker apparatus still active), atrial fibrillation, chronic left-sided pleural effusion, hyperlipidemia, hypertension, COPD, and previous history/present history concerning for strokelike symptoms who is referred for further cardiovascular evaluation based upon chest discomfort, abnormal cardiac enzymes/troponin I level, and concerns of a non-ST segment elevation WV. Based upon the information obtained from the cardiovascular team there is conflicting histories with respect to why the patient presented to the hospital. The patient appears to state that he felt, after sitting on the commode for period of time, that he had numbness in the left lower extremity. However based upon a telephone conversation that occurred earlier with his there was concern that that was his previous case, not his present case, and his present case was related to he was found attempting to look something up in a file cabinet and appearing confused. He was evaluated in the emergency department. According to the [facility] staff a stroke alert was called and his case was discussed with [facility] neurology. He had undergone evaluation with a head/neck CTA. There was no report of thrombosis, aneurysm, dissection or obvious comment on an acute cerebrovascular event. There were no recommendations for additional medical management/intervention. Earlier today he complained of left-sided left shoulder chest discomfort. He states he does not recall having discomfort like that in the past. He was evaluated and treated medically with a combination of nitrates and morphine sulfate. He states he had resolution of his symptoms. During that time his ECG demonstrated that he remained in atrial fibrillation with a left axis deviation with right bundle branch block and a left anterior fascicular block with an inferior WV pattern of indeterminate age cannot be excluded as well as occasional PVCs. He did have troponin I levels performed. They have turned positive. At the present time he states he has had no additional chest discomfort. Denies any acute shortness of breath or dyspnea at this time. There has been no report of near syncope or syncope. He states that he had recently had a fever. He reported to his [facility] urgent care center. He states he was told he could be tested for COVID-19 at either [facility] or the [facility] [place]. However he states he was able to go to [place], [place], where he was tested. He states he subsequently received a phone call stating his test was negative. He notes he has had no recurrent fevers. Examination he appears to be awake and alert at this time. He does not appear to be in any acute distress. His lungs appear to be clear to auscultation with the exception of diminished breath sounds in the left lower lobe area. His cardiovascular exam demonstrates an irregularly irregular rhythm with a normal S1 and S2 and a 2/6 systolic ejection murmur at the lower sternal border rating toward the LVOT area. His abdomen demonstrates positive bowel sounds with no obvious acute abdominal tenderness. His lower extremities appear to demonstrate trace to mild bilateral lower extremity peripheral pitting edema. He had a transthoracic echocardiogram performed on 10-13-2018 during a previous strokelike event. Results are as noted. Interpretation Summary The study was technically difficult. Diluted definity 3ml given slow IV push to enhance endocardial definition. Concentric left ventricular hypertrophy. Mildly dilated left ventricle. The estimated ejection fraction is 40 %. There is evidence of diastolic dysfunction. Normal right atrium. Mild (1+) mitral valve insufficiency. Mild aortic stenosis. Mild (1+) aortic valve insufficiency. The study was technically difficult. Additional medical records from [facility], where he has been cared for from a cardiovascular standpoint, were received and reviewed. Based upon these reports it appears he underwent CABG on 01-05-2004 with a CODY to the diagonal branch, and SVG to the lateral circumflex, and an SVG to the posterior lateral branch. It appears he underwent diagnostic cardiac catheterization on 04-05-2013. At that time per the report his left ventricle was noted to have apical akinesis with an LVEF of 35 to 40%, the left main coronary artery was occluded, the RCA had an 90% stenosis, the CODY to the diagonal branch was patent, and SVG to an OM branch was patent, and an SVG to another OM branch was patent. He subsequently underwent PTCA/stent with a Promus element 4.0?16 drug-eluting stent to the RCA distribution. Homar he also had undergone EP study on 08-22-2008. According to the report he was inducible for ventricular tachycardia. He then received a dual-chamber ICD. This was a [employer] Teligen model E110 serial #[id number] device. Again, he states that he has had the defibrillator portion of this device deactivated. Present time the concerns are that the patient has an extensive underlying ca rdiovascular disease history and has demonstrated concerning symptoms and objective findings for an acute non-ST segment elevation WV in the midst of concerns of possible strokelike symptoms. At the moment he appears to be symptomatically and hemodynamically stable. From a cardiac standpoint it would be reasonable to continue to monitor the patient, follow his cardiac enzymes and ECG, continue medical therapy which may include agents such as aspirin, antiplatelet agent such as Plavix, nitrates, beta-blockers, his diuretics, afterload reducing agent such as TOR inhibitors, and lipid-lowering agents. He has been on anticoagulant therapy based upon his atrial fibrillation which may need to be placed on temporary hold pending further evaluation which may include diagnostic cardiac catheterization. In the meantime he could be placed on alternative anticoagulant therapy once his Eliquis therapy has dissipated with agents such as IV heparin or Lovenox unless there is a contraindication from a neurologic standpoint. The patient's case was discussed with him. He has had all of his cardiovascular follow-up performed through the [facility] system. He states at this time he would be willing to be considered for repeat cardiac catheterization. He would want to be transferred back to [facility] for further evaluation and care. The above was discussed and reviewed with the patient, Ruben Gonzalez CNP, and Dr. Vogel. This note was generated using a voice recognition system and there may be incorrect words, spelling or punctuation that were not noted when reviewing the office note prior to saving.
[2019-09-20] MEDS: Carvedilol 12.5 MG Tablet 6.25 MG PO (11:11)
[2019-09-20] MEDS: Ipratropium/Albuterol Sulfate 3 ML AMPUL.NEB INHALATION (13:52)
[2019-09-20] MEDS: Budesonide Respules 0.5 MG/2 ML AMPUL.NEB. INHALATION (13:52)
--- NOTE | 2019-09-20 14:00 | CASEMGMT ---
RN CM CLAY MODELER CM to room to meet with patient for initial transition planning/care coordination assessment. DONTE SANDHU introduced self and role at [facility]. Pt voices understanding and consents to assessment at this time. Pt sitting up in recliner chair in no distress at this time. Pt is A/O at this time and answers all questions appropriately. Care providers, pharmacy, and demographics verified/updated at this time. PCP: Dr Noyola Specialists: [facility] @ [facility] Preferred Pharmacy: [facility] [place] Insurance: [employer] Prescription Benefit: Yes Living Will/HPOA: Has both LW and Healthcare POA, who is his , Shannan. Both are on file @ [facility]. LNOK: , Sahnnan. Has one living son, Eleazar Dunne Living Arrangements: Lives with his in one-story home w/basement. 19-yr-old great-grandson lives in full attic. 3 steps to enter through back entrance. States is independent with ADL's/self care. does home mgmt tasks. Transportation: Pt states drives self and states no transportation concerns at this time. also drives. DME: States has the following DME: BIPAP. Has a walker available but does not use it. Considering getting a shower chair and hand-held shower head. Pt states no need for further DME at this time. HHC/SNF: No history of either. States has went to [facility] for OP therapy in the past. Pt does not feel he needs HHC or OP therapy. Pt states roller checker has been in to talk with him and if Heart cath is recommended/needed, that he thinks he will be transferred to [facility]. CM to follow for any discharge planning/needs. Pt voices no further concerns/needs at this time. Advised pt to ask for CM if any further questions/concerns/needs arise. Voices understanding. PLAN: May transfer to [facility]. If remains @ [facility], plan @ d/c is home w/spouse. Saskia BARAKAT RN, CM
[2019-09-20] MEDS: Isosorbide DN 10 MG Tablet PO (14:35)
[2019-09-20] MEDS: Clopidogrel Bisulfate 300 MG Tablet PO (14:39)
--- NOTE | 2019-09-20 15:49 | NURSING ---
Called report to Darshana KENT at [facility]
--- NOTE | 2019-09-20 17:22 | PCM.DC.SUM ---
Discharge Date and Diagnosis - Problem List Patient Problems: Active and Suspected Problems CVA (cerebral vascular accident) (Acute) Atrial fibrillation (Acute) Date of Admission: 09/20/19 Date of Discharge: 09/20/19 - Primary Discharge Diagnosis Active and Suspected Problems TIA Atrial fibrillation (Acute) Nonstemi - Secondary Discharge Diagnosis Chronic Problems Hypertension (Chronic) Coronary artery disease (Chronic) Chronic atrial fibrillation (Chronic) Chronic anticoagulation (Chronic) Pradaxa GERD (gastroesophageal reflux disease) (Chronic) Obesity (Chronic) Systolic congestive heart failure (Chronic) Hyperbilirubinemia (Chronic) COPD (chronic obstructive pulmonary disease) (Chronic) History of coronary artery bypass graft (Chronic) 2003 Former smoker (Chronic) Hyperlipidemia (Chronic) Osteoarthritis (Chronic) Obstructive sleep apnea (Chronic) on BIPAP AICD (automatic cardioverter/defibrillator) present (Chronic) Hospital Course and Treatment Imaging Results: 09/20/19 10:04 Echo Complete W/ Contrast [ECHO] Urgent cardiology- Dr Ding neurology- [facility] teleneurology Operations: None Procedures: None Summary of Care Provided: The patient is a 84 year old M with an extensive past medical history as outlined was admitted through the ED on 09/20/2019 with a complaint of left lower extremity numbness and weakness. Patient states he woke up and the bathroom and subsequently felt like his left lower extremity was weak with tingling. He did not fall and had no gait instability and denied any slurring of speech, blurred vision, or any dizziness or lightheadedness. He came into the ED because he was concerned about strokelike symptoms. CT of the brain showed chronic involutional changes with moderate ventriculomegaly which will be due to his hydrocephalus but no evidence of acute intracranial hemorrhage. No CT evidence of hemodynamically significant stenosis, acute thrombosis or dissection or aneurysm was seen on the head and neck CTA and it only showed large left-sided submandibular sialolith with moderately severe paranasal sinus disease. Patient was admitted to be managed for TIA as symptoms of left lower extremity had resolved at time of admission. However at time I reviewed patient, patient was clutching his chest saying that he was having severe pain. Patient was denied of chest pain but kept on saying it was like he was being kicked in the chest. He was also noted to be tachycardic at that time an EKG done showed A. fib with RVR. Troponin admission in the ED was 0.130. However start repeat troponin after he was complaining of chest pain showed troponin had gone up to 2. Cardiology was immediately consulted. He was also put back on his beta-blockers which he had not taken today. Cardiology reviewed patient and based on his previous history of having had stents put in at [facility], this was discussed with patient and patient decided that if he did need stents, he would prefer to go to [facility] to have the stents put in. Patient received sublingual nitroglycerin and p.o. aspirin as well as IV morphine. [facility] transfer line was called, and patient was accepted to the service of Dr. Kim of cardiology. Patient was seen and examined prior to discharge. He still complained of the left-sided chest pain but it did improve with nitro. Review of stems otherwise negative. Labs and vitals reviewed. Home medication reviewed and reconciled. o/e: Vital Signs Temp Pulse Resp BP Pulse Ox 98.9 F 89 18 137/82 H 96 09/20/19 14:35 09/20/19 15:01 09/20/19 14:35 09/20/19 14:35 09/20/19 14:35 General: Alert, Oriented x3, Cooperative, - - in moderate distress due to chest pain. HEENT: Atraumatic, PERRLA, EOMI, Normocephalic Oral: Moist Mucosa Neck: Supple, No JVD, Negative Carotid Bruits Lungs: Clear to auscultation, Normal air movement, No rhonchi, No wheeze Cardiovascular: Irregular Rate, Tachycardic - afib with RVR Abdomen: Bowel Sounds Present, Soft, Non Tender, Non-Distended, No Hepato-splenomegaly Extremities: No edema, Capillary Refill Less than 3 Seconds Skin: No rashes, No breakdown Musculoskeletal: No Tenderness to Palpation of Joints or Extremities Lymphatic: No Cervical, Supraclavicular, or Inguinal Adenopathy Neurological: Cranial nerves II-XII grossly intact, Neuro grossly intact, Motor Exam 5/5 strength throughout Psych/Mental Status: Agitated, Alert and oriented to time, place, person, mood and affect Plan is fro transfer to [facility] Patient Problems: Active and Suspected Problems CVA (cerebral vascular accident) (Acute) Atrial fibrillation (Acute) - Physical Exam Vitals/I&O's: Vital Signs Temp Pulse Resp BP Pulse Ox 98.9 F 89 18 137/82 H 96 09/20/19 14:35 09/20/19 15:01 09/20/19 14:35 09/20/19 14:35 09/20/19 14:35 Oxygen Flow Rate (L/min) 2 Oxygen Delivery Method Room Air Weight: 198 lb 13.711 oz Body Mass Index (BMI) 30.2 Finger Stick Blood Glucose 102 Intake and Output for Last 24 Hours 09/18/19 09/19/19 09/20/19 23:59 23:59 23:59 Intake Total 60 / 60 Output Total 400 / 400 Balance -340 / -340 Laboratory Results 09/20/19 06:23: POC Glucose 102 09/20/19 06:50: WBC 6.6, RBC 4.02 L, Hgb 12.7 L, Hct 38.6 L, MCV 96.0 H, MCH 31.6, MCHC 32.9, RDW Std Deviation 46.6 H, RDW Coeff of Theresa 13.1, Plt Count 216, MPV 10.1, Immature Gran % (Auto) 0.500, Neut % (Auto) 76.2 H, Lymph % (Auto) 11.4 L, Mitchell % (Auto) 8.2, Eos % (Auto) 2.9, Baso % (Auto) 0.8, Absolute Neuts (auto) 5.0, Absolute Lymphs (auto) 0.75 L, Nucleated RBC % 0 09/20/19 06:50: PT Cancelled, INR Cancelled, APTT Cancelled 09/20/19 06:50: Sodium 139, Potassium 3.5, Chloride 107, Carbon Dioxide 27.0, Anion Gap 5, BUN 11, Creatinine 0.94, Estim Creat Clear Calc 55.67, Est GFR (MDRD) Af Amer 99, Est GFR (MDRD) Non-Af 82, BUN/Creatinine Ratio 11.8, Glucose 112 H, Calcium 8.7, Troponin I 0.130 H 09/20/19 06:50: PT 13.4, INR 1.1, APTT 33.0 09/20/19 10:18: Troponin I 2.070 H* 09/20/19 13:10: Troponin I 3.210 H* Current Medications Albuterol Sulfate (Ventolin Aerosols) 2.5 mg INHALATION Q4H PRN PRN PRN Reason: WHEEZING Albuterol/Ipratropium (Duoneb) 3 ml INHALATION Q6HWA.RT [facility] Last Admin: 09/20/19 13:52 Dose: 3 ml Documented by: Aspirin (Aspirin, Baby) 81 mg PO DAILY@0800 CHUCK Atorvastatin Calcium (Lipitor) 80 mg PO QHS CHUCK Budesonide (Pulmicort Aerosol) 0.5 mg INHALATION Q12H.RT [facility] Last Admin: 09/20/19 13:52 Dose: 0.5 mg Documented by: Carvedilol (Coreg) 6.25 mg PO BID [facility] Dextrose (D50w Syringe) 0 gm IV X1 PRN; Protocol PRN Reason: Hypoglycemia Furosemide (Lasix) 20 mg PO DAILY [facility] Glucagon () 1 mg IM .X1 PRN PRN Reason: Hypoglycemia Hydralazine HCl (Apresoline Iv) 5 mg IV Q30M PRN PRN Reason: to maintain BP goals Sodium Chloride () 250 mls @ 15 mls/hr IV .[id number] PRN PRN Reason: Saline Flush Sodium Chloride () 250 mls @ 15 mls/hr IV .[id number] PRN PRN Reason: Additional IVPB Infusion Isosorbide Dinitrate (Isordil) 10 mg PO TID [facility] Last Admin: 09/20/19 14:35 Dose: 10 mg Documented by: Labetalol HCl (Trandate) 20 mg IV X1 PRN PRN Reason: BLOOD PRESSURE Labetalol HCl (Trandate) 10 - 20 mg IV Q10M PRN PRN PRN Reason: to maintain BP goals Lisinopril (Zestril) 40 mg PO DAILY [facility] Morphine Sulfate () 1 - 2 mg IV Q4H PRN PRN PRN Reason: Pain Score 4-5/10 Nitroglycerin (Nitrostat) 0.4 mg SUBLINGUAL Q5M PRN PRN Reason: CARDIAC/CHEST PAIN Last Admin: 09/20/19 09:48 Dose: 0.4 mg Documented by: Ondansetron HCl (Zofran) 4 mg IV Q8H PRN PRN PRN Reason: NAUSEA/VOMITING Sodium Chloride () 10 - 40 ml IV UD PRN PRN Reason: SALINE FLUSH Last Admin: 09/20/19 09:30 Dose: 10 ml Documented by: Zolpidem Tartrate (Ambien (Generic)) 5 mg PO QHS PRN PRN PRN Reason: INSOMNIA Discharge Diet: Low fat/ Low Cholesterol Home Medications: Medications to take at Discharge Atorvastatin Calcium [Lipitor] 80 mg PO QHS 09/15/13 Carvedilol 6.25 mg PO BID 09/15/13 Furosemide [Lasix] 20 mg PO DAILY 09/15/13 Lisinopril 40 mg PO DAILY 09/15/13 Zolpidem Tartrate [Ambien] 5 mg PO QHS PRN PRN 09/15/13 Albuterol Inhaler [Ventolin Hfa] 1 - 2 puff INHALATION Q4H PRN PRN #1 inhaler 07/20/15 Mometasone/Formoterol [Dulera 200 Mcg/5 Mcg Inhaler] 8.8 gm IH DAILY 07/20/15 Apixaban [Eliquis] 5 mg PO BID #60 tab 06/30/17 Aspirin [Aspirin, Baby] 81 mg PO DAILY@0800 tab.chew 06/30/17 Ipratropium/Albuterol Respimat [Combivent Respimat Inhal [place]] 1 puff INHALATION 4X/DAY 09/20/19 Primary Care Physician: Torin Noyola MD [Primary Care Provider] - Please follow up with your Primary Care Physician in: 1 week Disposition: Acute care Hospital Minutes spent on discharge:: 45 Patient Condition:: Fair Medical Necessity - Tobacco Use Smoking Status: Former smoker Meaningful Use Info Meaningful Use Diagnoses (Choose all that apply): AMI - AMI/Post PCI/Angioplasty Aspirin given w/in 24hrs of arrival?: Yes ASA at discharge?: Yes Antiplatelet Therapy at Discharge:: Yes Statins at discharge?: Yes Buck/ARB at discharge?: Yes Beta Michael at discharge?: Yes Done w/ Acute RI measure.: Yes Inpatient E&M: [id number] Disch Hosp
--- OUTSIDE RECORDS SUMMARY | 2020-02-14 13:00 | XMS RPT_ITS | CCD ---
:1935 External Reference #:[id number] Author Organization [facility] Care Team Providers Name Role Phone IRMA, E Admitting Unavailable IRMA, E Attending Unavailable IRMA, E Primary Care Unavailable Chandan Noyola Primary Care Provider Allergies Reported Allergen Reaction(s) Severity Date of Onset Location Penicillins Rash, Itching 01-22-2005 - [facility] ([id number]) Sulfonamides (Antibiotic) Rash, Itching 01-22-2005 - [facility] ([id number]) Medications Medication Name Sig Date Prescriber Location Acetaminophen / HYDROcodone-acetam 10-13-2019 [facility] Provider [facility] HYDROcodone inophen (NORCO) (15200) 5-325 mg per tablet Take 1.5 tablets by mouth once daily. Per Pain Management. 0 10/13/2019 Active Comment: Take 1.5 tablets by mouth on ce daily. Per Pain Management. Albuterol albuterol HFA (VENTOLIN HFA) 07-20-2015 [facility] Provider [facility] 90 mcg/actuation inhaler (44 195) Inhale 1-2 Puffs as instructed every 4 hours as needed. 0 07/20/2015 Active Comment: Inhale 1-2 Puffs as instruct ed every 4 hours as needed. Albuterol / ipratropium-albuterol [facility] Provider [facility] Ipratropium (COMBIVENT RESPIMAT) 20-100 (66659) mcg/actuation mist Indications: Chronic obstructive pulmonary disease, unspecified COPD type (HCC) Inhale 1 Puff as instructed. Inhale 1 puff once daily 0 Active Comment: Inhale 1 Puff as instructed. Inhale 1 puff once daily apixaban apixaban (ELIQUIS) 5 mg 12-01-2017 More (Lard [facility]) Older [facility] tab(s) Indications: Atrial ( 47161) fibrillation, unspecified type (HCC) Take 1 tablet by mouth twice daily. 60 tablet 3 12/01/2017 Active Comment: Take 1 tablet by mouth twice daily. Aspirin aspirin, enteric coated 07-11-2015 Torin rodgers [facility] (ADULT LOW DOSE ASPIRIN) (44 195) 81 mg EC tablet Take 1 tablet by mouth once daily. 0 07/11/2015 Active Comment: Take 1 tablet by mouth once daily. atorvastatin atorvastatin (LIPITOR) 40 03-14-2019 More (Lard Maker) Older [facility] mg tablet Indications: (4419 5) Mixed hyperlipidemia Take 1 tablet by mouth once daily. 90 tablet 3 03/14/2019 Active Comment: Take 1 tablet by mouth once daily. carvedilol carvedilol (COREG) 6.25 10-29-2018 Torin rodgers [facility] mg tablet Take 1 tablet (441 95) by mouth twice daily. 0 10/29/2018 Active Comment: Take 1 tablet by mouth twice daily. fluticasone fluticasone (FLONASE) 50 04-21-2017 Cheryl ([facility]) [facility] mcg/actuation nasal spray Adilson (4 0814) Indications: Cough , Post-nasal drainage Use 1-2 Sprays in each nostril once daily. Rinse mouth after use. Use once daily as needed. 1 Bottle 2 04/21/2017 Active Comment: Use 1-2 Sprays in each nostr il once daily. Rinse mouth after use. Use once daily as needed. Furosemide furosemide 20 mg tablet 04-14-2013 Torin rodgers [facility] Indications: (76955) Cardiomyopathy, ischemic Take 1 tablet by mouth once daily. 0 04/14/2013 Active Comment: Take 1 tablet by mouth once daily. Ipratropium ipratropium bromide 10-29-2018 Torin Noyola [facility] (ATROVENT) 42 mcg (0.06 (441 95) %) nasal spray Indications: Rhinosinusitis Use 2 Sprays in the nose three times daily. 1 Bottle 1 10/29/2018 Active Comment: Use 2 Sprays in the nose thr ee times daily. Lisinopril lisinopril (ZESTRIL, 09-24-2019 Torin Noyola [facility] PRINIVIL) 40 mg tablet (4419 5) Take 1 tablet by mouth once daily. 90 tablet 3 09/24/2019 Active Comment: Take 1 tablet by mouth once daily. Spironolactone spironolactone 09-27-2019 Tony Dennys [facility] (ALDACTONE) 25 mg (76624) tablet Indications: Essential hypertension Take 1 tablet by mouth once daily. 0 09/27/2019 Active Comment: Take 1 tablet by mouth once daily. zolpidem zolpidem (AMBIEN) 5 mg 12-01-2019 - More ([facility]) Older [facility] tablet Indications: 05-29-2020 (33837) Insomnia, unspecified type Take 1 tablet by mouth at bedtime as needed for Sedation for up to 180 days. FOR SLEEP 30 tablet 1 12/01/2019 05/29/2020 Active Comment: Take 1 tablet by mouth at be dtime as needed for Sedation for up to 180 days. FOR SLEEP Problems Active Problems Category Problem Name Status Date Location Acute myocardial Myocardial infarction Active 09-20-2019 - [facility] infarction (35729) Cardiac dysrhythmias Atrial fibrillation Active 01-10-2010 - [facility] (21448) Chronic obstructive Chronic obstructive Active 10-17-2009 - [facility] pulmonary disease and lung disease (32522 ) bronchiectasis Conduction disorders Automatic implantable Active 2008 - [facility] cardiac defibrillator (07654 ) in situ Coronary atherosclerosis Ischemic myocardial Active [facility] and other heart disease dysfunction (441 95) Disorders of lipid Mixed hyperlipidemia Active 01-22-2005 - C [facility] metabolism (49805) Essential hypertension Essential hypertension Active 11-11-19 [facility] (34222) External cause codes: Fall in (into) shower Active [facility] Fall or empty bathtub, (86512) initial encounter Other nutritional; Obese class I [facility] endocrine; and metabolic (44 195) disorders Residual codes; Obstructive sleep apnea Active 10-04-2007 - [facility] unclassified syndrome (53178) Spondylosis; Backache Active 03-10-2018 - [facility] intervertebral disc (60360) disorders; other back problems Transient cerebral Transient cerebral Active 09-20-2019 - [facility] ischemia ischemia (66095) Past or Other Problems Category Problem Name Status Date Location Other and Pol[facility] unspecified benign - (86699) neoplasm Other circulatory History of cerebrovascular Completed [facility] disease accident - (85519) Other non-epithelial History of malignant basal Completed 2017 [facility] cancer of skin cell neoplasm of skin - (441 95) Other screening for Electroencephalogram Completed 09-22-2019 [facility] suspected conditions abnormal - (95305) (not mental disorders or infectious disease) Pleurisy; Pleural plaque Completed 10-29-2018 [facility] marvin pneumothorax; - (73350) pulmonary collapse Residual codes; Insomnia Completed 06-30-2012 [facility] unclassified - (15883) Results Result Name Value Range Unit Interpretation Flag Date Location cnpn on 2020-01-16 CNPN Telephone (RGMOB) Normal 01-16-2020 [facility] ALEXIA MERIDA ([id number]) 1935 [facility] Time Provider Department ([id number]) 01/16/20 GUSTAVO WELLS V RGMOB During your visit today, we recorded the following informati on about you: Jose Juan Tracey Pss 01/16/2020 10:30 AM Signed Pt would like to have images and reports from XRs perf ormed on 01/13/2020 put onto a disk for crop picker. PT informed to crop picker in 24 Hrs at [place]. Thanks Jose Juan Tracey Pss Jane Dawson Pss 01/16/2020 11:00 AM Signed CD/REPORTS READY FOR SUPERVISOR CENTRAL SUPPLY AT [facility] Allergies As of Date: 01/16/2020 Noted Allergy Reaction PENICILLINS 01/22/2005 2 - Rash 9 - Itching SULFA (SULFONAMIDE ANTIBIOTICS) 01/22/2005 2 - Rash 9 - Itching Date Reviewed: 01/13/2020 Reviewed by: Beena Pandya Ma - Fully Assessed Reason for Visit: disk request [Other] Prescriptions as of 01/16/2020 Sig: ZOLPIDEM 5 MG TABLET Take 1 tablet by mouth at bed* HYDROCODONE 5 MG-ACETAMINOPHE* Take 1.5 tablets by mouth onc * SPIRONOLACTONE 25 MG TABLET Take 1 tablet by mouth once d* LISINOPRIL 40 MG TABLET Take 1 tablet by mouth once d* ATORVASTATIN 40 MG TABLET Take 1 tablet by mouth once d* CARVEDILOL 6.25 MG TABLET Take 1 tablet by mouth twice * IPRATROPIUM BROMIDE 42 MCG (0* Use 2 Sprays in the nose thre * ALBUTEROL SULFATE HFA 90 MCG/* Inhale 1-2 Puffs as instructe * IPRATROPIUM 20 MCG-ALBUTEROL * Inhale 1 Puff as instructed. * APIXABAN 5 MG TABLET Take 1 tablet by mouth twice * FLUTICASONE PROPIONATE 50 MCG* Use 1-2 Sprays in each nostri * ASPIRIN 81 MG TABLET,DELAYED * Take 1 tablet by mouth once d * FUROSEMIDE 20 MG TABLET Take 1 tablet by mouth once d* Problem List As Of Date 01/16/2020 Noted Resolved CAD (coronary artery disease) [I25.10] 01/22/2005 More... 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 Pruritic disorder [L29.9] 03/23/2009 09/24/2010 Cardiomyopathy, ischemic [I25.5] 08/28/2009 COPD (Chronic Obstructive Pulmonary Disease) [J*10/17/2009 More... Atrial flutter [I48.92] 01/04/2010 12/29/2012 Atrial fibrillation [I48.91] 01/10/2010 Gastric ulcer, unspecified as acute or chronic,*11/12/2011 0 12/29/2012 Esophagitis, unspecified [K20.9] 11/12/2011 12/29/2012 Insomnia [G47.00] 06/30/2012 Occult GI bleeding [R19.5] 12/31/2012 01/10/2015 Nonspecific abnormal finding in stool contents *04/13/2014 1 06/14/2013 Colon polyps [K63.5] 01/10/2015 History of CVA (cerebrovascular accident) [Z86.*06/04/2017 More... History of basal cell carcinoma (BCC) of skin [*03/10/2018 More... Pleural plaque, left [J92.9] 10/29/2018 Transient ischemic attack (TIA) [G45.9] 09/20/2019 Non-ST elevated myocardial infarction (HCC) [I2*09/20/2019 Abnormal electroencephalogram (EEG) [R94.01] 09/22/2019 Encounter Status:Closed by JOSE JUAN JEAN on 01/17/20 xr thoracic 2v ap/lat on 2020-01-13 XR THORACIC 2V * * *Final Report* * * Normal [facility] AP/LAT DATE OF EXAM: Jan 13 2020 3:12PM [facility] ([id number]) WOX 5262 - XR THORACIC 2V AP/LAT / PROCEDURE REASON: multiple diagnoses * * * * Physician Interpretation * * * * CLINICAL INDICATION: Status post fall in the bathtub TECHNIQUE: Frontal and lateral radiographs of the thoracic spine COMPARISON: Correlation made to chest x-ray dated 10/19/2018 FINDINGS: Very mild superior endplate compression deformity of T7 and T8. Multilevel degenerative changes within the spine. Shoulder prosthesis partially visualized. Left transvenous pacemaker present with leads projecting ove r the right-sided cardiac chambers. Postsurgical changes from medi an sternotomy and CABG procedure. Moderate left pleural effusio n. IMPRESSION: 1. Very mild superior endplate compression deformity of T7 a nd T8. 2. Moderate left pleural effusion. 3. See separate dictation of left rib series which is report ed under a separate cover. Roll Plugger Machine Operator: CODY Transcribe Date/Time: Jan 13 2020 3:18P Dictated by : BEBE SANCHEZ MD This examination was interpreted and the report reviewed and electronically signed by: BEBE SANCHEZ MD on Jan 13 2020 3:21PM EST [id number] xr rib/chst 3v ap rib/obl/chst l on 2020-01-13 XR RIB/CHST 3V AP * * *Final Report* * * Normal 01-13-2020 [facility] RIB/OBL/CHST L DATE OF EXAM: Jan 13 2020 3:12PM Clinic WOX [id number] - XR RIB/CHST 3V AP RIB/OBL/CHST L / [id number] [facility] PROCEDURE REASON: multiple diagnoses ([id number]) * * * * Physician Interpretation * * * * EXAM: XR RIB/CHST 3V AP RIB/OBL/CHST L HISTORY: Fall in bathtub, initial encounter Upper back pain on left side . VIEWS: AP and oblique left ribs with PA chest. COMPARISON: 10/19/2018 chest. FINDINGS: Chest: ICD, partially imaged reverse right total shoulder ar throplasty. Median sternotomy. The right lung appears clear. Chronic lef t basilar pleural thickening and/or loculated fluid. No pneumothorax. Left ribs: No acute displaced rib fracture or focal bone les ion. IMPRESSION: Left rib cage appears intact. Chronic left basilar pleural thickening and/or loculated flu id, unchanged. Roll Plugger Machine Operator: [facility] Transcribe Date/Time: Jan 13 2020 3:15P Dictated by : Freya LANE MD This examination was interpreted and the report reviewed and electronically signed by: Freya LANE MD on Jan 13 2020 3:19PM EST [id number] progress on 2020-01 PROGRESS HNO ID: [id number] Normal 01-13-2020 [facility] Author: Sharon Gómez (Rt) Evelina Hodges [facility] ([id number]) Service: ? Author Type: Short Haul Driver Type: Progress Notes Filed: 01/13/2020 3:12 PM Note Text: Radiology Service Progress Note PATIENT NAME: Alexia Merida DATE OF SERVICE: January 13, 2020 TIME: 3:12 PM PATIENT IDENTITY VERIFICATION COMPLETED USING TWO (2) IDENTI FIERS: Name and Date of confirmed by patient verbally. FALL SCREENING: Has the patient had 2 falls in the last year or 1 fall with injury or currently using an Ambulatory Assistive Devic e (Walker, Cane, Wheelchair, Crutches, etc.)? No PATIENT GENDER DATA: Male PATIENT RELEVANT IMPLANT DATA REVIEWED: Not Applicable RADIOLOGY DEPARTMENT: General X-ray: Exam(s) Completed: Rib X-Ray: Left Spine X-Ray(s): Thoracic PERIPHERAL IV DATA: Not applicable SIGNED BY: RT Lucas January 13, 2020 3:12 PM PROGRESS HNO ID: [id number] Normal 01-13-2020 [facility] ([id number][facility] Service: ? Author Type: Nurse Practitioner Type: Progress Notes Filed: 01/13/2020 6:08 PM Note Text: Subjective 84 year old male with PMH afib, CAD, HTN, hyperlipidemia, CO PD presents with complaints of upper left back pain. Endorses that on January 04 he fell in shower. He states that it was a direct result of slipping. Denies feelings of lightheaded, d izziness, or syncope. Denies head trauma or injury. Denies LOC. Denies ne ck pain. Denies abdominal pain. Denies N/V/D. +Xarelto related to katherine b. Denies seeking medical treatment at the time of the fall. Worse wit h movement and deep inspiraiton. Denies factors that seem to alleviate. Has been utilizing Tylenol without much relief. The history is provided by the patient. No language interpre ter was used. Back Pain This is a new problem. The current episode started more than 1 week ago. The problem occurs constantly. The problem has not changed s ingrid onset.The pain is associated with falling. Pain location: left thoraci c back. The quality of the pain is described as aching and stabbing. The pain does not radiate. The pain is at a severity of 5/10. The pain is mode rate. The symptoms are aggravated by twisting and certain positions. T he pain is the same all the time. Stiffness is present all day. Pertinent n egatives include no chest pain, no fever, no numbness, no weight loss , no headaches, no abdominal pain, no abdominal swelling, no carmelina l incontinence, no perianal numbness, no bladder incontinence, no dysuria, no pelvic pain, no leg pain, no paresthesias, no paresis, no tingling and no weakness. He has tried analgesics for the symptoms. The t reatment provided mild relief. PAST MEDICAL HISTORY Diagnosis Date - Actinic keratosis 2008 - Atrial fibrillation (HCC) 01/10/2010 - Atrial flutter (HCC) 01/04/2010 - CAD (coronary artery disease) 01/22/2005 Ruben Nash MD. [facility]. 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 10/04/2007 - Transient ischemic attack (TIA) 09/20/2019 - Unspecified cardiovascular disease PAST SURGICAL HISTORY Procedure Laterality Date - CARDIAC CATHETERIZATION: SCANNED RESULT 09/22/2019 - COLONOSCOP W/ OR W/O [facility] SPEC 06/12/10 - COLONOSCOP W/ OR W/O [facility] SPEC 06/26/2014 Colonoscopy - DESTR LESION BENIGN/PREMAL 06/10/06 SKs ablated x 4 - EGD W/O BRSH SPECIMEN W/BX 11/07/11 - EGD W/O OR W/BRUSH/WASH 04/13/14 EGD - HEART SURGERY HX 01/2004 Triple bypass - INSERT/REPL DEFIB LEAD/GENER OTHR 08/22/2008 AICD - LAPAROSCOPIC CHOLEYCYSTECTOMY 1976 Cholecystectomy, lap - TRANSCATH STENT ADDN VESSEL,PERCUT 04/05/2013 Proximal RCA Promus MATTHEW ALLERGIES Penicillins and Sulfa (Sulfonamide Antibiotics) MEDICATIONS zolpidem (AMBIEN) 5 mg tablet Take 1 tablet by mouth at bedt michelle as needed for Sedation for up to 180 days. FOR SLEEP HYDROcodone-acetaminophen (NORCO) 5-325 mg per tablet Take 1 .5 tablets by mouth once daily. Per Pain Management. spironolactone (ALDACTONE) 25 mg tablet Take 1 tablet by ramirez th once daily. lisinopril (ZESTRIL, PRINIVIL) 40 mg tablet Take 1 tablet by mouth once daily. atorvastatin (LIPITOR) 40 mg tablet Take 1 tablet by mouth o nce daily. carvedilol (COREG) 6.25 mg tablet Take 1 tablet by mouth twi ce daily. ipratropium bromide (ATROVENT) 42 mcg (0.06 %) nasal spray U se 2 Sprays in the nose three times daily. albuterol HFA (VENTOLIN HFA) 90 mcg/actuation inhaler Inhale 1-2 Puffs as instructed every 4 hours as needed. ipratropium-albuterol (COMBIVENT RESPIMAT) 20-100 mcg/actuat ion mist Inhale 1 Puff as instructed. Inhale 1 puff once daily apixaban (ELIQUIS) 5 mg tab(s) Take 1 tablet by mouth twice daily. fluticasone (FLONASE) 50 mcg/actuation nasal spray Use 1-2 S prays in each nostril once daily. Rinse mouth after use. Use once daily as needed. aspirin, enteric coated (ADULT LOW DOSE ASPIRIN) 81 mg EC ta blet Take 1 tablet by mouth once daily. furosemide 20 mg tablet Take 1 tablet by mouth once daily. FAMILY HISTORY Problem Relation Age of Onset - Heart Mother - Prostate Cancer Brother Social History Tobacco Use - Smoking status: Former Smoker Packs/day: 1.00 Years: 15.00 Pack years: 15.00 Types: Cigarettes Quit date: 05/04/1974 Years since quittin.7 - Smokeless tobacco: Never Used - Tobacco comment: Quit 1974 Substance Use Topics - Alcohol use: Yes Alcohol/week: 5.0 standard drinks Types: 2 Cans of Beer (12oz) per week Frequency: 2-4 times a month Drinks per session: 1 or 2 Binge frequency: Never - Drug use: No Review of Systems Constitutional: Negative for fever and weight loss. Cardiovascular: Negative for chest pain. Gastrointestinal: Negative for abdominal pain and bowel inco ntinence. Genitourinary: Negative for bladder incontinence, dysuria an d pelvic pain. Musculoskeletal: Positive for back pain. Neurological: Negative for tingling, weakness, numbness, hea daches and paresthesias. BP 98/64 Pulse 62 Temp 36.6 ?C (97.9 ?F) (Tympanic) Re sp 18 Wt 90.3 kg (199 lb) SpO2 97% BMI 30.26 kg/m? Objective Physical Exam Constitutional: He is oriented to person, place, and time an d well-developed, well-nourished, and in no distress. HENT: Head: Normocephalic and atraumatic. Right Ear: External ear normal. Left Ear: External ear normal. Mouth/Throat: Oropharynx is clear and moist. Eyes: Pupils are equal, round, and reactive to light. Conjun ctivae and EOM are normal. Right eye exhibits no discharge. Left eye exhibi ts no discharge. No scleral icterus. Neck: Normal range of motion. Neck supple. No tracheal devia tion present. No thyromegaly present. Cardiovascular: Normal rate, regular rhythm and normal heart sounds. Exam reveals no gallop and no friction rub. No murmur heard. Pulmonary/Chest: Effort normal and breath sounds normal. No respiratory distress. He has no wheezes. He has no rales. He exhibits no tenderness. Abdominal: Soft. Bowel sounds are normal. He exhibits no dis tension. There is no abdominal tenderness. Musculoskeletal: Normal range of motion. General: No tenderness, deformity or edema. Comments: No midline cervical, thoracic or lumbar midlines t enderness. No step off. No crepitus. Left upper thoracic pain with palp ation. +pain with deep inspiration. No ecchymosis. No skin rash or lesion s. Lymphadenopathy: He has no cervical adenopathy. Neurological: He is alert and oriented to person, place, and time. GCS score is 15. Skin: Skin is warm and dry. No rash noted. No erythema. No p allor. Psychiatric: Mood, affect and judgment normal. Nursing note and vitals reviewed. ASSESSMENT/PLAN: 1. Fall in bathtub, initial encounter - ICD9: E885.9, ICD10: W18.2XXA (primary diagnosis) Mechanical. Discussed fall safety. - XR RIBS/CHEST 3V AP RIB/OBLS/CXR LT - XR THORACIC LIMITED 2V AP/LAT 2. Upper back pain on left side - ICD9: 724.5, ICD10: M54.9 Secondary to fall - Warm moist heat for 20 min three times a day - Xrays- see orders - Patient given instructions use of medications as ordered, back care exercise program, intermittent use of heat and avoiding slee ping on a heating pad - Follow up in 2 days or sooner if symptoms persist or worse n - XR RIBS/CHEST 3V AP RIB/OBLS/CXR LT-negativee for fracture or pneumo - XR THORACIC LIMITED 2V AP/LAT-negative for acute process. Romina Tellez APRN.RAUL chand on 2020-01-13 CNOV Office Visit ([facility]) Normal 01-13-20 [facility] ALEXIA MERIDA ([id number]) 1935 [facility] Date Time Provider Department ([id number]) 01/13/20 2:45 PM ROMINA TELLEZ (NUTRITION REPRESENTATIVE) [facility] During your visit today, we recorded the following informati on about you: Temperature Pulse Respiration Blood pressure 97.9 degrees 62/minute 18/minute 98/64 Weight 90.3 kg Romina Tellez APRN.RAUL 01/13/2020 6:08 PM Signed Subjective 84 year old male with PMH afib, CAD, HTN, hyperlipidem ia, COPD presents with complaints of upper left back pain. Endorses that on January 04 he fell in shower. He states that it was a direct result of slipping. Denies feelings of lightheaded, d izziness, or syncope. Denies head trauma or injury. Denies LOC. Denies neck pain. Denies abdominal pain. Denies N/V/D. +Xarelto r elated to afib. Denies seeking medical treatment at the time of the fall. Worse with movement and deep inspiraiton. Denies factors that seem to alleviate. H as been utilizing Tylenol without much relief. The history is provided by the patient. No language interpre ter was used. Back Pain This is a new problem. The current episode started mor e than 1 week ago. The problem occurs constantly. The problem h as not changed since onset.The pain is associated with falling. Pain location: left thoracic back. The quality of the pain is described as aching and stabbing. The pa in does not radiate. The pain is at a severity of 5/10. The pain is mo derate. The symptoms are aggravated by twisting and certain positio ns. The pain is the same all the time. Stiffness is present all day. Pertinent negatives include no chest pain, no fever, no numbness, no weight loss, no headaches, no abdominal pain, n o abdominal swelling, no bowel incontine nce, no perianal numbness, no bladder incontinence, no dysuria, no pelvic pain, no leg pain, no paresthesias, no paresis, no tingling and no weakness. He has tried analgesics for the sy mptoms. The treatment provided mild relief. PAST MEDICAL HISTORY Diagnosis Date - Actinic keratosis 2008 - Atrial fibrillation (HCC) 01/10/2010 - Atrial flutter (HCC) 01/04/2010 - CAD (coronary artery disease) 01/22/2005 Ruben Nash MD. [facility] 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 10/04/2007 - Transient ischemic attack (TIA) 09/20/2019 - Unspecified cardiovascular disease PAST SURGICAL HISTORY Procedure Laterality Date - CARDIAC CATHETERIZATION: SCANNED RESULT 09/22/2019 - COLONOSCOP W/ OR W/O [facility] SPEC 06/12/10 - COLONOSCOP W/ OR W/O [facility] SPEC 06/26/2014 Colonoscopy - DESTR LESION BENIGN/PREMAL 06/10/06 SKs ablated x 4 - EGD W/O [facility] SPECIMEN W/BX 11/07/11 - EGD W/O OR W/BRUSH/WASH 04/13/14 EGD - HEART SURGERY HX 01/2004 Triple bypass - INSERT/REPL DEFIB LEAD/GENER OTHR 08/22/2008 [facility] - LAPAROSCOPIC CHOLEYCYSTECTOMY 1977 Cholecystectomy, lap - TRANSCATH STENT ADDN VESSEL,PERCUT 04/05/2013 Proximal RCA Promus [facility]W ALLERGIES Penicillins and Sulfa (Sulfonamide Antibiotics) MEDICATIONS zolpidem (AMBIEN) 5 mg tablet Take 1 tablet by m outh at bedtime as needed for Sedation for up to 180 days. FOR SLEEP HYDROcodone-acetaminophen (N ORCO) 5-325 mg per tablet Take 1.5 tablets by mouth once daily. Per Pain Management. spironolactone (ALDACTONE) 25 mg tablet Take 1 tablet by ramirez th once daily. lisinopril (ZESTRIL, PRINIVIL) 40 mg tab let Take 1 tablet by mouth once daily. atorvastatin (LIPITOR) 40 mg tablet Take 1 tablet by mouth o nce daily. carvedilol (COREG) 6.25 mg tablet Take 1 tablet by mouth twi ce daily. ipratropium bromide (ATROVENT) 42 mcg (0 .06 %) nasal spray Use 2 Sprays in the nose three times daily. albuterol HFA (VENTOLIN HFA) 90 mcg/actuation inhaler Inhale 1-2 Puffs as instructed every 4 hours as needed. ipratropium-albuterol (COMBIVENT RESPIMAT) 20-10 0 mcg/actuation mist Inhale 1 Puff as instructed. Inhale 1 puff once daily apixaban (ELIQUIS) 5 mg tab(s) Take 1 tablet by mouth twice daily. fluticasone (FLONASE) 50 mcg/actuation nasal spray Use 1-2 S prays in each nostril once daily. Rinse mouth after use. Use once daily as needed. aspirin, enteric coated (ADULT LOW DOSE ASPIRIN) 81 mg EC tablet Take 1 tablet by mouth once daily. furosemide 20 mg tablet Take 1 tablet by mouth once daily. FAMILY HISTORY Problem Relation Age of Onset - Heart Mother - Prostate Cancer Brother Social History Tobacco Use - Smoking status: Former Smoker Packs/day: 1.00 Years: 15.00 Pack years: 15.00 Types: Cigarettes Quit date: 05/04/1974 Years since quittin.7 - Smokeless tobacco: Never Used - Tobacco comment: Quit 1974 Substance Use Topics - Alcohol use: Yes Alcohol/week: 5.0 standard drinks Types: 2 Cans of Beer (12oz) per week Frequency: 2-4 times a month Drinks per session: 1 or 2 Binge frequency: Never - Drug use: No Review of Systems Constitutional: Negative for fever and weight loss. Cardiovascular: Negative for chest pain. Gastrointestinal: Negative for abdominal pain and bowel inco ntinence. Genitourinary: Negative for bladder incontinence, dysuria an d pelvic pain. Musculoskeletal: Positive for back pain. Neurological: Negative for tingling, weakness, numbness, hea daches and paresthesias. BP 98/64 Pulse 62 Temp 36.6 ?C (97.9 ?F) (Tympanic) Resp 18 Wt 90.3 kg (199 lb) SpO2 97% BMI 30.26 kg/m? Objective Physical Exam Constitutional: He is oriented to person, place, and time and well-developed, well-nourished, and in no distress. HENT: Head: Normocephalic and atraumatic. Right Ear: External ear normal. Left Ear: External ear normal. Mouth/Throat: Oropharynx is clear and moist. Eyes: Pupils are equal, round, and react yvette to light. Conjunctivae and EOM are normal. Right eye exhibits no discharge. Left eye exhibits no discharge. No scleral icterus. Neck: Normal range of motion. Neck supple. No tracheal deviation present. No thyromegaly present. Cardiovascular: Normal rate, regular rhythm and normal heart sounds. Exam reveals no gallop and no friction rub. No murmur heard. Pulmonary/Chest: Effort normal and breath sounds normal. No respiratory distress. He has no wheezes. He has no rales. He exhibits no tenderness. Abdominal: Soft. Bowel sounds are normal. He exh ibits no distension. There is no abdominal tenderness. Musculoskeletal: Normal range of motion. General: No tenderness, deformity or edema. Comments: No midline cervical, thoracic or lumbar midlines t enderness. No step off. No crepitus. Left upper thoracic pain with palpation. +pain with deep inspiration. No ecchymosis. No skin rash or lesions. Lymphadenopathy: He has no cervical adenopathy. Neurological: He is alert an d oriented to person, place, and time. GCS score is 15. Skin: Skin is warm and dry. No rash noted. No erythema. No p allor. Psychiatric: Mood, affect and judgment normal. Nursing note and vitals reviewed. ASSESSMENT/PLAN: 1. Fall in bathtub, initial encounter - ICD9: E885.9, ICD10: W18.2XXA (primary diagnosis) Mechanical. Discussed fall safety. - XR RIBS/CHEST 3V AP RIB/OBLS/CXR LT - XR THORACIC LIMITED 2V AP/LAT 2. Upper back pain on left side - ICD9: 724.5, ICD10: M54.9 Secondary to fall - Warm moist heat for 20 min three times a day - Xrays- see orders - Patient given instructions use of medi cations as ordered, back care exercise program, intermittent use of heat and avoiding sleeping on a heating pad - Follow up in 2 days or sooner if symptoms persist or worse n - XR RIBS/CHEST 3V AP RIB/OBLS/CXR LT-negativee for fracture or pneumo - XR THORACIC LIMITED 2V AP/LAT-negative for acute process. Romina Tellez APRN.RAUL Tellez APRN.CNP 01/13/2020 3:33 PM Signed R.I.C.E. The general care of your injury includes the following: Rest ing, Icing, Compressing and Elevating the injured area. Remember this as RICE. ? REST: Limit the use of the injured body part. ? ICE: By applying ice to the affected a jamie, swelling and pain can be reduced. Place some ice cubes in a re-sealable (Ziploc) bag and add some water. Put a thin washcloth between the bag and your skin. Apply the ic e bag to the area for at least 20 minutes. Do this at least 4 times per day. Using the ice for longer times and more frequently is OK. NEVER AP PLY ICE DIRECTLY TO THE SKIN. ? COMPRESS: Compression means to apply pressure around the injured area such as with a splint, cast or an los bandage. Compression decreases swelling and improves comfort. Compression should be tight enough t o relieve swelling but not so tight as to decrease circulation. Increas ing pain, numbness, tingling, or change in skin color, are all signs of decreased circulat ion. ? ELEVATE: Elevate the injured part. For example, elevate yo ur foot by placing it on a chair while sitting, or propping it up on pillows when lying down. Referring Provider: SELF [[id number]] Allergies As of Date: 01/13/2020 Noted Allergy Reaction PENICILLINS 01/22/2005 2 - Rash 9 - Itching SULFA (SULFONAMIDE ANTIBIOTICS) 01/22/2005 2 - Rash 9 - Itching Date Reviewed: 01/13/2020 Reviewed by: Beena Pandya Ma - Fully Assessed Reason for Visit: Back Pain [12] Cmt: mid left side back pain x 8 days, fall i n tub Primary Visit Diagnosis:Fall in bathtub, initial encounter [ W18.2XXA] Other Visit Diagnosis:Upper back pain on left side [M54.9] Order(s):XR RIBS/CHEST 3V AP RIB/OBLS/CXR LT [[id number]] Order #: [id number] FUTURE XR THORACIC LIMITED 2V AP/LAT [[id number]] Order #: [id number] FUTURE Prescriptions as of 01/13/2020 Sig: ZOLPIDEM 5 MG TABLET Take 1 tablet by mouth at bed* HYDROCODONE 5 MG-ACETAMINOPHE* Take 1.5 tablets by mouth onc * SPIRONOLACTONE 25 MG TABLET Take 1 tablet by mouth once d* LISINOPRIL 40 MG TABLET Take 1 tablet by mouth once d* ATORVASTATIN 40 MG TABLET Take 1 tablet by mouth once d* CARVEDILOL 6.25 MG TABLET Take 1 tablet by mouth twice * IPRATROPIUM BROMIDE 42 MCG (0* Use 2 Sprays in the nose thre * ALBUTEROL SULFATE HFA 90 MCG/* Inhale 1-2 Puffs as instructe * IPRATROPIUM 20 MCG-ALBUTEROL * Inhale 1 Puff as instructed. * APIXABAN 5 MG TABLET Take 1 tablet by mouth twice * FLUTICASONE PROPIONATE 50 MCG* Use 1-2 Sprays in each nostri * ASPIRIN 81 MG TABLET,DELAYED * Take 1 tablet by mouth once d * FUROSEMIDE 20 MG TABLET Take 1 tablet by mouth once d* Problem List As Of Date 01/13/2020 Noted Resolved CAD (coronary artery disease) [I25.10] 01/22/2005 More... 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 Pruritic disorder [L29.9] 03/23/2009 09/24/2010 Cardiomyopathy, ischemic [I25.5] 08/28/2009 COPD (Chronic Obstructive Pulmonary Disease) [J*10/17/2009 More... Atrial flutter [I48.92] 01/04/2010 12/29/2012 Atrial fibrillation [I48.91] 01/10/2010 Gastric ulcer, unspecified as acute or chronic,*11/12/2011 0 12/29/2012 Esophagitis, unspecified [K20.9] 11/12/2011 12/29/2012 Insomnia [G47.00] 06/30/2012 Occult GI bleeding [R19.5] 12/31/2012 01/10/2015 Nonspecific abnormal finding in stool contents *04/13/2014 1 06/14/2013 Colon polyps [K63.5] 01/10/2015 History of CVA (cerebrovascular accident) [Z86.*06/04/2017 More... History of basal cell carcinoma (BCC) of skin [*03/10/2018 More... Pleural plaque, left [J92.9] 10/29/2018 Transient ischemic attack (TIA) [G45.9] 09/20/2019 Non-ST elevated myocardial infarction (HCC) [I2*09/20/2019 Abnormal electroencephalogram (EEG) [R94.01] 09/22/2019 Other instructions from your clinician: R.I.C.E. The general care of your injury includes the following: Rest ing, Icing, Compressing and Elevating the injured area. Remember this as RICE. ? REST: Limit the use of the injured body part. ? ICE: By applying ice to the affected area, swelling and pa in can be reduced. Place some ice cubes in a re-sealable (Ziploc) bag and add some water. Put a thin washcloth between the bag and your skin. A pply the ice bag to the area for at least 20 minutes. Do this at least 4 times per day. Using the ice for longer times and more frequently is O K. NEVER APPLY ICE DIRECTLY TO THE SKIN. ? COMPRESS: Compression means to apply pressure around the i njured area such as with a splint, cast or an los bandage. Compression d ecreases swelling and improves comfort. Compression should be tight e nough to relieve swelling but not so tight as to decrease circulation . Increasing pain, numbness, tingling, or change in skin color, are all s igns of decreased circulation. ? ELEVATE: Elevate the injured part. For example, elevate yo ur foot by placing it on a chair while sitting, or propping it up on pi llows when lying down. Encounter Status:Closed by ROMINA TELLEZ CNP on 01/13/20 No panel information on 2020-01-13 [facility] ([id number]) progress on 2019-12 PROGRESS HNO ID: [id number] Normal 12-07-2019 [facility] Author: Luz (Rn) DONTE Mckinley [facility] ([id number]) Service: ? Author Type: Registered Nurse Type: Progress Notes Filed: 12/07/2019 1:29 PM Note Text: HIGH RISK CHRONIC DISEASE MONITORING ?I wanted to let you know that this will be our last call to gether. When we first started talking a couple of months back, it was wit h the goal to check on your well-being during the COVID crisis. You have d one an outstanding job working with us to manage your health. I hav e no doubt you will continue to take good care of yourself and reach out to your primary care provider?s office should you have any health care needs . A few important reasons to reach out to your PCP?s office include: ? Schedule your annual visit or routine follow up with your PCP. It is so important to let your provider know how you?re doing and [place] e care of routine health maintenance items. ? Request a medication refill or renewal before you run out! ? Inform them of any concerns. Your provider can work with y ou to identify the care needed. You just have to let them know. You may contact your physician by calling his/her office dir ectly or by using [facility]: [facility] to connect virtually. Thank you so much for your time today. It has been our pleas ure to work with you over these past couple of months. We are creating n ew programs at the [facility] that you may be eligible for, so you may be contacted in the future. Until then, be well!? Contact made with patient: Yes Patient identified by name and . Discussed care with spouse Hi my name is Luz Mckinley RN and I am calling from the [facility] on behalf of your PCP, Torin Noyola MD Because of the Covid-19 outbreak, I am calling to help make sure you are feeling wel l and that you have what you need to manage your well-being, since it is so important to stay home and take social distancing seriously to help prote ct your health at this time. If you have any health concerns, we will come up with a plan on how to proceed. SYMPTOMS: I'd like to ask some question about how you are managing you r health. Would that be OK? Yes Do you have any new or worsening symptoms that you'd like to discuss with a provider? No symptoms - Continue outreach/phone call ACTION TAKEN: No Symptoms - Continue phone call MEDICATIONS: Do you have any questions about taking your medication or wh ich medications you should be on? No Do you need any medication refills at this time, including a ny of the medications you might take only when needed? No ACTION TAKEN: No action required SOCIAL: We would like to make sure you have what you need so that yo ur basics needs are met - including your personal safety, food, housin g and medications. Would you like to speak with a social work team psychologist to help give you support for any of these needs? No It can be normal to feel anxious or down during a time like this. Would you like to talk to a mental health professional about how y ou have been feeling? No ACTION TAKEN: No action taken At present, these are our recommendations regarding the karan navirus (COVID-19) outbreak: ? Avoid public places as much as possible. ? Avoid close contact (within 6 feet) with others you don't live with, especially if they are sick. ? Stay home if you are sick. ? Wash your hands regularly for at least 20 seconds with soa p and water. ? Wear a cloth mask in public places to help reduce communit y spread. ? Do not go to your Doctor's office unless instructed to do so. For any non-emergency symptoms, call your Doctor's office to get ins tructions on how to manage (we might recommend a telephone or virtual vis it). For emergency symptoms, proceed to Emergency Department as usual but inform them of cough and fever symptoms MICHELL if present (or call on the way if possible). End outreach cnptoutreach on CNPTOUTREACH Patient Outreach (FAMPAM) Normal 0 12-07-2019 [facility] MAGNOLIAALEXIA Paul ([id number]) 1935 [address] [facility] Date Time Provider Department ([id number]) 12/07/19 LUZ MCKINLEY (RN) ANTWAN During your visit today, we recorded the following informati on about you: Luz Mckinley RN, RN 12/07/2019 1:29 PM Signed HIGH RISK CHRONIC DISEASE MONITORING ?I wanted to let you know that this will be our last call together. When we first started talking a coup le of months back, it was with the goal to check on your well-being during the COVID crisis. You have done an ou tstanding job working with us to manage your health. I have no doubt you will continue to take good care of yourself a nd reach out to your primary care provider?s office should you have any health care needs. A few important reasons to reach out to your PCP?s office include: ? Schedule your annual visit or routine follow up with your PCP. It is so important to let your provider know how you?re d oing and take care of routine health maintenance items. ? Request a medication refill or renewal before you run out! ? Inform them of any concerns. Your prov ider can work with you to identify the care needed. You just have to let them know. You may contact your physician by calling his/he r office directly or by using Health: [facility] to connect virtually. Thank you so much for your time today. It has been our pleasure to work with you over these past couple of months. We are creating new pr ograms at the [facility] that you may be eligible for, s o you may be contacted in the future. Until then, be well!? Contact made with patient: Yes Patient identified by name and . Discussed care with spouse Hi my name is Luz Mckinley RN and I am calling from the [facility] on behalf of your PCP, Torin Noyola MD Because of the Covid-19 outbreak, I am calling to help make sure you are feeling well and that you have what you need to manage your well-being, since it is so important to stay home and take social distancing seriously to help protect your healt h at this time. If you have any health concerns, we will come up with a plan on how to proceed. SYMPTOMS: I'd like to ask some question about how you are managing y our health. Would that be OK? Yes Do you have any new or worsening symptoms that you'd like to discuss with a provider? No symptoms - Continue outreach/phone call ACTION TAKEN: No Symptoms - Continue phone call MEDICATIONS: Do you have any questions ab out taking your medication or which medications you should be on? No Do you need any medication refills at this time, including a ny of the medications you might take only when needed? No ACTION TAKEN: No action required SOCIAL: We would like to make sure y ou have what you need so that your basics needs are met - including your personal safety, fo od, housing and medications. Would you like to speak with a social work team psychologist to help give you support for any of these needs? No It can be normal to feel anxious or down during a time lik e this. Would you like to talk to a mental health professional abo ut how you have been feeling? No ACTION TAKEN: No action taken At present, these are our recommendation s regarding the coronavirus (COVID-19) outbreak: ? Avoid public places as much as possible. ? Avoid close contact (within 6 feet) with others you don't live with, especially if they are sick. ? Stay home if you are sick. ? Wash your hands regularly for at least 20 seconds with soa p and water. ? Wear a cloth mask in public places to help reduce communit y spread. ? Do not go to your Doctor's office unless instructed to do so. For any non-emergency symptoms, call your Doctor's office to get instructions on how to manage (we might recommend a telephone or virtual visit). Fo r emergency symptoms, proceed to Emergen cy Department as usual but inform them of cough and fever symptoms MICHELL if present (or call on the way if possib le). End outreach Allergies As of Date: 12/07/2019 Noted Allergy Reaction PENICILLINS 01/22/2005 2 - Rash 9 - Itching SULFA (SULFONAMIDE ANTIBIOTICS) 01/22/2005 2 - Rash 9 - Itching Date Reviewed: 12/01/2019 Reviewed by: More ([facility]) Older - Fully Assessed Reason for Visit: community outreach [Other] Cmt: CDM Prescriptions as of 12/07/2019 Sig: ZOLPIDEM 5 MG TABLET Take 1 tablet by mouth at bed* HYDROCODONE 5 MG-ACETAMINOPHE* Take 1.5 tablets by mouth onc * SPIRONOLACTONE 25 MG TABLET Take 1 tablet by mouth once d* LISINOPRIL 40 MG TABLET Take 1 tablet by mouth once d* ATORVASTATIN 40 MG TABLET Take 1 tablet by mouth once d* CARVEDILOL 6.25 MG TABLET Take 1 tablet by mouth twice * IPRATROPIUM BROMIDE 42 MCG (0* Use 2 Sprays in the nose thre * ALBUTEROL SULFATE HFA 90 MCG/* Inhale 1-2 Puffs as instructe * IPRATROPIUM 20 MCG-ALBUTEROL * Inhale 1 Puff as instructed. * APIXABAN 5 MG TABLET Take 1 tablet by mouth twice * FLUTICASONE PROPIONATE 50 MCG* Use 1-2 Sprays in each nostri * ASPIRIN 81 MG TABLET,DELAYED * Take 1 tablet by mouth once d * FUROSEMIDE 20 MG TABLET Take 1 tablet by mouth once d* Problem List As Of Date 12/07/2019 Noted Resolved CAD (coronary artery disease) [I25.10] 01/22/2005 More... 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 Pruritic disorder [L29.9] 03/23/2009 09/24/2010 Cardiomyopathy, ischemic [I25.5] 08/28/2009 COPD (Chronic Obstructive Pulmonary Disease) [J*10/17/2009 More... Atrial flutter [I48.92] 01/04/2010 12/29/2012 Atrial fibrillation [I48.91] 01/10/2010 Gastric ulcer, unspecified as acute or chronic,*11/12/2011 0 12/29/2012 Esophagitis, unspecified [K20.9] 11/12/2011 12/29/2012 Insomnia [G47.00] 06/30/2012 Occult GI bleeding [R19.5] 12/31/2012 01/10/2015 Nonspecific abnormal finding in stool contents *04/13/2014 1 06/14/2013 Colon polyps [K63.5] 01/10/2015 History of CVA (cerebrovascular accident) [Z86.*06/04/2017 More... History of basal cell carcinoma (BCC) of skin [*03/10/2018 More... Pleural plaque, left [J92.9] 10/29/2018 Transient ischemic attack (TIA) [G45.9] 09/20/2019 Non-ST elevated myocardial infarction (HCC) [I2*09/20/2019 Abnormal electroencephalogram (EEG) [R94.01] 09/22/2019 Encounter Status:Closed by LUZ MCKINLEY on 12/07/19 progress on 2019-11 PROGRESS HNO ID: [id number] Normal 12-01-2019 [facility] Author: More ([employer]) [facility] ([id number]) Service: ? Author Type: Nurse Practitioner Type: Progress Notes Filed: 12/01/2019 4:12 PM Note Text: CC: Patient presents with: Follow Up HPI Alexia Merida is a 84 year old male who presents today for above. Patient had rotator cuff surgery 11/01. Doing really well, lopez n has resolved and ROM restored. Currently in PT, follow-up with surgeon sc heduled in a couple weeks. HTN-Medication changes:No Taking all medications as prescribed: Yes Side effects: No Home BP's: Yes 120's/70's Denies: headache, chest pain, palpitations, dyspnea and marcelina pheral edema. Last 3 Encounter BP Readings: Date: BP: 12/01/2019 120/80 08/25/2019 138/90 03/28/2019 116/70 Afib: anticoagulated on Eliquis. Denies palpitations or unus ual bleeding. OTILIA: wearing CPAP nightly. Denies issues with mask or ez e. Denies snoring, unrefreshed sleep, insomnia, excessive daytime slee piness. COPD: well controlled per patient. Denies frequent cough or wheezing. Managed by Dr. Sanchez. Only inhaler is combivent 2 times a day, rarely uses Albuterol. REVIEW OF SYSTEMS See HPI PAST MEDICAL HISTORY Diagnosis Date - Actinic keratosis 2008 - Atrial fibrillation (HCC) 01/10/2010 - Atrial flutter (HCC) 01/04/2010 - CAD (coronary artery disease) 01/22/2005 Ruben Nash MD. [facility] 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 10/04/2007 - Transient ischemic attack (TIA) 09/20/2019 - Unspecified cardiovascular disease PAST SURGICAL HISTORY Procedure Laterality Date - CARDIAC CATHETERIZATION: SCANNED RESULT 09/22/2019 - COLONOSCOP W/ OR W/O [facility] SPEC 06/12/10 - COLONOSCOP W/ OR W/O [facility] SPEC 06/26/2014 Colonoscopy - DESTR LESION BENIGN/PREMAL 06/10/06 SKs ablated x 4 - EGD W/O BRSH SPECIMEN W/BX 11/07/11 - EGD W/O OR W/BRUSH/WASH 04/13/14 EGD - HEART SURGERY HX 01/2004 Triple bypass - INSERT/REPL DEFIB LEAD/GENER OTHR 08/22/2008 AICD - LAPAROSCOPIC CHOLEYCYSTECTOMY 1977 Cholecystectomy, lap - TRANSCATH STENT ADDN VESSEL,PERCUT 04/05/2013 Proximal RCA Promus MATTHEW ALLERGIES Penicillins; Sulfa (Sulfonamide Antibiotics) MEDICATIONS HYDROcodone-acetaminophen (NORCO) 5-325 mg per tablet Take 1 .5 tablets by mouth once daily. Per Pain Management. spironolactone (ALDACTONE) 25 mg tablet Take 1 tablet by ramirez th once daily. lisinopril (ZESTRIL, PRINIVIL) 40 mg tablet Take 1 tablet by mouth once daily. zolpidem (AMBIEN) 5 mg tablet Take 1 tablet by mouth at bedt michelle as needed for Sedation for up to 180 days. FOR SLEEP atorvastatin (LIPITOR) 40 mg tablet Take 1 tablet by mouth o nce daily. carvedilol (COREG) 6.25 mg tablet Take 1 tablet by mouth twi ce daily. ipratropium bromide (ATROVENT) 42 mcg (0.06 %) nasal spray U se 2 Sprays in the nose three times daily. albuterol HFA (VENTOLIN HFA) 90 mcg/actuation inhaler Inhale 1-2 Puffs as instructed every 4 hours as needed. ipratropium-albuterol (COMBIVENT RESPIMAT) 20-100 mcg/actuat ion mist Inhale 1 Puff as instructed. Inhale 1 puff once daily apixaban (ELIQUIS) 5 mg tab(s) Take 1 tablet by mouth twice daily. mometasone-formoterol (DULERA) 200-5 mcg/actuation inhaler I nhale as instructed twice daily. fluticasone (FLONASE) 50 mcg/actuation nasal spray Use 1-2 S prays in each nostril once daily. Rinse mouth after use. Use once daily as needed. aspirin, enteric coated (ADULT LOW DOSE ASPIRIN) 81 mg EC ta blet Take 1 tablet by mouth once daily. furosemide 20 mg tablet Take 1 tablet by mouth once daily. FAMILY HISTORY Problem Relation Age of Onset - Heart Mother - Prostate Cancer Brother Social History Tobacco Use - Smoking status: Former Smoker Packs/day: 1.00 Years: 15.00 Pack years: 15.00 Types: Cigarettes Last attempt to quit: 05/04/1974 Years since quittin.6 - Smokeless tobacco: Never Used - Tobacco comment: Quit 1974 Substance Use Topics - Alcohol use: Yes Alcohol/week: 5.0 standard drinks Types: 2 Cans of Beer (12oz) per week Frequency: 2-4 times a month Drinks per session: 1 or 2 Binge frequency: Never - Drug use: No PHYSICAL EXAM BP 120/80 Pulse 76 Temp 36.3 ?C (97.4 ?F) (Temporal) R manny 16 Wt 88.5 kg (195 lb) SpO2 97% BMI 29.65 kg/m? General Appearance: well appearing, in no acute distress, al ert Lungs: Lungs clear to auscultation. No wheezing, rhonchi, ra les. Heart: RRR without murmur, gallop, or rubs. No ectopy ASSESSMENT/PLAN: 1. Essential hypertension - ICD9: 401.9, ICD10: I10 (primary diagnosis) - good control - Continue current medication(s) - Recommend home blood pressure monitoring, to bring results in on next visit - Goal of BP <130/80 2. Insomnia, unspecified type - ICD9: 780.52, ICD10: G47.00 PDMP website checked and validated. All prescriptions have b een APPROPRIATELY filled. No suspicious activity was identified. 12/01/2019 by More Mann APRN.CNP - ZOLPIDEM 5 MG TABLET refilled 3. S/P rotator cuff repair - ICD9: V45.89, ICD10: Z98.890 Doing well. Follow-up with orthopedics as instructed 4. Mixed hyperlipidemia - ICD9: 272.2, ICD10: E78.2 - to be determined upon return of lab results - Continue current medication. 5. OTILIA on Bilevel PAP - ICD9: 327.23, V46.8, ICD10: G47.33, Z99.89 Compliant with CPAP 6. Atrial fibrillation, unspecified type (HCC) - ICD9: 427.3 1, ICD10: I48.91 stable 7. Coronary artery disease involving solomon coronary artery of solomon heart without angina pectoris - ICD9: 414.01, ICD10: I25.10 Stable 8. Chronic obstructive pulmonary disease, unspecified COPD t ype (HCC) - ICD9: 496, ICD10: J44.9 Stable 9. Obesity, Class I, BMI 30-34.9 - ICD9: 278.00, ICD10: E66. 9 Stable 10. Cardiomyopathy, ischemic - ICD9: 414.8, ICD10: I25.5 Stable Prescription instructions reviewed with patient as applicabl e. Potential red flag symptoms discussed with the patient. Reviewed appro priate action plan to take if red flag symptoms occur. Patient agreeable t o treatment plan. More Mann APRN.CNP cnov on 2019-12-01 CNOV Office Visit (INTMWS) Normal 12-01-19 [facility] ALEXIA MERIDA ([id number]) 1935 M [place] Date Time Provider Department ([id number]) 12/01/19 3:40 PM MORE MANN (RAUL) INTMWS During your visit today, we recorded the following informati on about you: Temperature Pulse Respiration Blood pressure 97.4 degrees 76/minute 16/minute 120/80 Weight 88.5 kg More Mann DECATIZERGINA 12/01/2019 4:12 PM Signed CC: Patient presents with: Follow Up HPI Alexia Merida is a 84 year old male who presents today for above. Patient had rotator cuff surgery 11/01. Doing really well, pain has resolv ed and ROM restored. Currently in PT, follow-up [facility] h surgeon scheduled in a couple weeks. HTN-Medication changes:No Taking all medications as prescribed: Yes Side effects: No Home BP's: Yes 120's/70's Denies: headache, chest pain, palpitations, dyspnea and marcelina pheral edema. Last 3 Encounter BP Readings: Date: BP: 12/01/2019 120/80 08/25/2019 138/90 03/28/2019 116/70 Afib: anticoagulated on Eliquis. Denies palpitations or unus ual bleeding. OTILIA: wearing CPAP nightly. Denies issues with mask or machine. Denies snoring, unrefreshed sleep, insomnia, excessive daytime sleepiness. COPD: well controlled per patient. Denies freque nt cough or wheezing. Managed by Dr. Sanchez. Only inhaler is combivent 2 times a day, rarely uses Albuterol. REVIEW OF SYSTEMS See HPI PAST MEDICAL HISTORY Diagnosis Date - Actinic keratosis 2008 - Atrial fibrillation (HCC) 01/10/2010 - Atrial flutter (HCC) 01/04/2010 - CAD (coronary artery disease) 01/22/2005 Ruben Nash MD. [facility]. 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 10/04/2007 - Transient ischemic attack (TIA) 09/20/2019 - Unspecified cardiovascular disease PAST SURGICAL HISTORY Procedure Laterality Date - CARDIAC CATHETERIZATION: SCANNED RESULT 09/22/2019 - COLONOSCOP W/ OR W/O [facility] SPEC 06/12/10 - COLONOSCOP W/ OR W/O [facility] SPEC 06/26/2014 Colonoscopy - DESTR LESION BENIGN/PREMAL 06/10/06 SKs ablated x 4 - EGD W/O BRS SPECIMEN W/BX 11/07/11 - EGD W/O OR W/BRUSH/WASH 04/13/14 EGD - HEART SURGERY HX 01/2004 Triple bypass - INSERT/REPL DEFIB LEAD/GENER OTHR 08/22/2008 AICD - LAPAROSCOPIC CHOLEYCYSTECTOMY 1977 Cholecystectomy, lap - TRANSCATH STENT ADDN VESSEL,PERCUT 04/05/2013 Proximal RCA Promus MATTHEW ALLERGIES Penicillins; Sulfa (Sulfonamide Antibiotics) MEDICATIONS HYDROcodone-acetaminophen (N ORCO) 5-325 mg per tablet Take 1.5 tablets by mouth once daily. Per Pain Management. spironolactone (ALDACTONE) 25 mg tablet Take 1 tablet by ramirez th once daily. lisinopril (ZESTRIL, PRINIVIL) 40 mg tab let Take 1 tablet by mouth once daily. zolpidem (AMBIEN) 5 mg tablet Take 1 tablet by m outh at bedtime as needed for Sedation for up to 180 days. FOR SLEEP atorvastatin (LIPITOR) 40 mg tablet Take 1 tablet by mouth o nce daily. carvedilol (COREG) 6.25 mg tablet Take 1 tablet by mouth twi ce daily. ipratropium bromide (ATROVENT) 42 mcg (0 .06 %) nasal spray Use 2 Sprays in the nose three times daily. albuterol HFA (VENTOLIN HFA) 90 mcg/actuation inhaler Inhale 1-2 Puffs as instructed every 4 hours as needed. ipratropium-albuterol (COMBIVENT RESPIMAT) 20-10 0 mcg/actuation mist Inhale 1 Puff as instructed. Inhale 1 puff once daily apixaban (ELIQUIS) 5 mg tab(s) Take 1 tablet by mouth twice daily. mometasone-formoterol (DULER A) 200-5 mcg/actuation inhaler Inhale as instructed twice daily. fluticasone (FLONASE) 50 mcg/actuation nasal spray Use 1-2 S prays in each nostril once daily. Rinse mouth after use. Use once daily as needed. aspirin, enteric coated (ADULT LOW DOSE ASPIRIN) 81 mg EC tablet Take 1 tablet by mouth once daily. furosemide 20 mg tablet Take 1 tablet by mouth once daily. FAMILY HISTORY Problem Relation Age of Onset - Heart Mother - Prostate Cancer Brother Social History Tobacco Use - Smoking status: Former Smoker Packs/day: 1.00 Years: 15.00 Pack years: 15.00 Types: Cigarettes Last attempt to quit: 05/04/1974 Years since quittin.6 - Smokeless tobacco: Never Used - Tobacco comment: Quit 1974 Substance Use Topics - Alcohol use: Yes Alcohol/week: 5.0 standard drinks Types: 2 Cans of Beer (12oz) per week Frequency: 2-4 times a month Drinks per session: 1 or 2 Binge frequency: Never - Drug use: No PHYSICAL EXAM BP 120/80 Pulse 76 Temp 36.3 ?C (97.4 ?F) (Temporal) R manny 16 Wt 88.5 kg (195 lb) SpO2 97% BMI 29.65 kg/m? General Appearance: well appearing, in no acute distress, al ert Lungs: Lungs clear to auscultation. No wheezing, rhonchi, ra les. Heart: RRR without murmur, gallop, or rubs. No ectopy ASSESSMENT/PLAN: 1. Essential hypertension - ICD9: 401.9, ICD10: I10 (primary diagnosis) - good control - Continue current medication(s) - Recommend home blood pressure monitoring, to b ring results in on next visit - Goal of BP <130/80 2. Insomnia, unspecified type - ICD9: 780.52, ICD10: G47.00 PDMP website checked and validated. All prescrip tions have been APPROPRIATELY filled. No suspicious activity was identified. 12/01/2019 by More Mann APRN.CNP - ZOLPIDEM 5 MG TABLET refilled 3. S/P rotator cuff repair - ICD9: V45.89, ICD10: Z98.890 Doing well. Follow-up with orthopedics as instructed 4. Mixed hyperlipidemia - ICD9: 272.2, ICD10: E78.2 - to be determined upon return of lab results - Continue current medication. 5. OTILIA on Bilevel PAP - ICD9: 327.23, V46.8, ICD10: G47.33, Z99.89 Compliant with CPAP 6. Atrial fibrillation, unspecified type (HCC) - ICD9: 427.31, ICD10: I48.91 stable 7. Coronary artery disease involving solomon coronary arter y of solomon heart without angina pectoris - ICD9: 414.01, ICD10: I25.10 Stable 8. Chronic obstructive pulmonary disease, unspec ified COPD type (HCC) - ICD9: 496, ICD10: J44.9 Stable 9. Obesity, Class I, BMI 30-34.9 - ICD9: 278.00, ICD10: E66. 9 Stable 10. Cardiomyopathy, ischemic - ICD9: 414.8, ICD10: I25.5 Stable Prescription instructions reviewed with patient as elysia licable. Potential red flag symptoms discussed with the patient. Review ed appropriate action plan to take if red flag symptoms occur. Patient agreeable to treatm ent plan. GALO Zavala APRN.RAUL 12/01/2019 3:53 PM Signed You are due for the Shingles vaccine (Shingrix), Medicare requires you have this done at your pharmacy Referring Provider: TORIN NOYOLA [[id number]] Allergies As of Date: 12/01/2019 Noted Allergy Reaction PENICILLINS 01/22/2005 2 - Rash 9 - Itching SULFA (SULFONAMIDE ANTIBIOTICS) 01/22/2005 2 - Rash 9 - Itching Date Reviewed: 12/01/2019 Reviewed by: More (Raul) Mackenzie - Fully Assessed Reason for Visit: Follow Up [171] Primary Visit Diagnosis:Essential hypertension [I10] Other Visit Diagnoses:Insomnia, unspecified type [G47.00] S/P rotator cuff repair [Z98.890] Mixed hyperlipidemia [E78.2] OTILIA on Bilevel PAP [G47.33, Z99.89] Atrial fibrillation, unspecified type (HCC) [I48.91] Coronary artery disease involving solomon coronary artery of solomon heart without angina pectoris [I25.10] Chronic obstructive pulmonary disease, unspecified COPD type (HCC) [J44.9] Obesity, Class I, BMI 30-34.9 [E66.9] Cardiomyopathy, ischemic [I25.5] Order(s):zolpidem (AMBIEN) 5 mg tabletTake 1 tablet by mouth at bedtime as needed for Sedation for up to 180 days. FOR SLEEPDisp: 30 ta bletRfl: 1 Prescriptions as of 12/01/2019 Sig: ZOLPIDEM 5 MG TABLET Take 1 tablet by mouth at bed* HYDROCODONE 5 MG-ACETAMINOPHE* Take 1.5 tablets by mouth onc * SPIRONOLACTONE 25 MG TABLET Take 1 tablet by mouth once d* LISINOPRIL 40 MG TABLET Take 1 tablet by mouth once d* ATORVASTATIN 40 MG TABLET Take 1 tablet by mouth once d* CARVEDILOL 6.25 MG TABLET Take 1 tablet by mouth twice * IPRATROPIUM BROMIDE 42 MCG (0* Use 2 Sprays in the nose thre * ALBUTEROL SULFATE HFA 90 MCG/* Inhale 1-2 Puffs as instructe * IPRATROPIUM 20 MCG-ALBUTEROL * Inhale 1 Puff as instructed. * APIXABAN 5 MG TABLET Take 1 tablet by mouth twice * FLUTICASONE PROPIONATE 50 MCG* Use 1-2 Sprays in each nostri * ASPIRIN 81 MG TABLET,DELAYED * Take 1 tablet by mouth once d * FUROSEMIDE 20 MG TABLET Take 1 tablet by mouth once d* Problem List As Of Date 12/01/2019 Noted Resolved CAD (coronary artery disease) [I25.10] 01/22/2005 More... 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 Pruritic disorder [L29.9] 03/23/2009 09/24/2010 Cardiomyopathy, ischemic [I25.5] 08/28/2009 COPD (Chronic Obstructive Pulmonary Disease) [J*10/17/2009 More... Atrial flutter [I48.92] 01/04/2010 12/29/2012 Atrial fibrillation [I48.91] 01/10/2010 Gastric ulcer, unspecified as acute or chronic,*11/12/2011 0 12/29/2012 Esophagitis, unspecified [K20.9] 11/12/2011 12/29/2012 Insomnia [G47.00] 06/30/2012 Occult GI bleeding [R19.5] 12/31/2012 01/10/2015 Nonspecific abnormal finding in stool contents *04/13/2014 1 06/14/2013 Colon polyps [K63.5] 01/10/2015 History of CVA (cerebrovascular accident) [Z86.*06/04/2017 More... History of basal cell carcinoma (BCC) of skin [*03/10/2018 More... Pleural plaque, left [J92.9] 10/29/2018 Transient ischemic attack (TIA) [G45.9] 09/20/2019 Non-ST elevated myocardial infarction (HCC) [I2*09/20/2019 Abnormal electroencephalogram (EEG) [R94.01] 09/22/2019 Other instructions from your clinician: You are due for the Shingles vaccine (Shingrix), Medicare re quires you have this done at your pharmacy Prescriptions ordered this encounter Disp Refills Start End ZOLPIDEM 5 MG TABLET 30 t* 1 12/01/2019 05/29/2020 Route: ORAL Sig: Take 1 tablet by mouth at bedtime as needed for Sedat ion for up to 180 days. FOR SLEEP Medications Discontinued During This Encounter mometasone-formoterol (DULERA) 200-5* 07/06/2017 12/01/2019 Class: Historical Med Route: INHALATION Sig: Inhale as instructed twice daily. Disc: Course of therapy completed zolpidem (AMBIEN) 5 mg tablet 30 t* 1 08/04/2019 12/01/2019 Route: ORAL Sig: Take 1 tablet by mouth at bedtime as needed for Sedation for up to 180 days. FOR SLEEP Disc: Reason for discontinue is not on file. Disposition: Return in about 6 months (around 06/02/2020) for routine follow-up. Follow-up and Disposition History Recorded Encounter Status:Closed by MORE MANN CNP on 12/01/19 progress on 2019-11 PROGRESS HNO ID: [id number] Normal 11-30-2019 [facility] [place] Author: Susana Hartmann (Network Navigator) Luz ([id number]) Service: ? Author Type: Appraiser Personal Property Type: Progress Notes Filed: 11/30/2019 2:02 PM Note Text: HIGH RISK CHRONIC DISEASE MONITORING Provider Action/FYI: call in 1 week Routine follow-up Contact made with patient: No - Unable to leave message - en tered next patient outreach date for the following week on the same in Track Pt. Outreach - End outreach Outreach ended cnptoutreach on CNPTOUTREACH Patient Outreach ([facility]) Normal 0 11-30-2019 [facility] ALEXIA MERIDA ([id number]) 1935 [place] Date Time Provider Department ([id number]) 11/30/19 SUSANA ESCOBARNETWORK NAVIGATOR)[facility] During your visit today, we recorded the following informati on about you: TOMMIE Ferrara 11/30/2019 2:02 PM Sarah burciaga HIGH RISK CHRONIC DISEASE MONITORING Provider Action/FYI: call in 1 week Routine follow-up Contact made with patient: No - Unable to leave message - en tered next patient outreach date for the following week on the same in Track Pt. Outreach - End outreach Outreach ended Allergies As of Date: 11/30/2019 Noted Allergy Reaction PENICILLINS 01/22/2005 2 - Rash 9 - Itching SULFA (SULFONAMIDE ANTIBIOTICS) 01/22/2005 2 - Rash 9 - Itching Date Reviewed: 10/17/2019 Reviewed by: Delia Castro LPN - Fully Assessed Reason for Visit: community monitoring outreach [Other] Prescriptions as of 11/30/2019 Sig: HYDROCODONE 5 MG-ACETAMINOPHE* Take 1.5 tablets by mouth onc * SPIRONOLACTONE 25 MG TABLET Take 1 tablet by mouth once d* LISINOPRIL 40 MG TABLET Take 1 tablet by mouth once d* ZOLPIDEM 5 MG TABLET Take 1 tablet by mouth at bed* ATORVASTATIN 40 MG TABLET Take 1 tablet by mouth once d* CARVEDILOL 6.25 MG TABLET Take 1 tablet by mouth twice * IPRATROPIUM BROMIDE 42 MCG (0* Use 2 Sprays in the nose thre * ALBUTEROL SULFATE HFA 90 MCG/* Inhale 1-2 Puffs as instructe * IPRATROPIUM 20 MCG-ALBUTEROL * Inhale 1 Puff as instructed. * APIXABAN 5 MG TABLET Take 1 tablet by mouth twice * MOMETASONE-FORMOTEROL HFA 200* Inhale as instructed twice da * FLUTICASONE PROPIONATE 50 MCG* Use 1-2 Sprays in each nostri * ASPIRIN 81 MG TABLET,DELAYED * Take 1 tablet by mouth once d * FUROSEMIDE 20 MG TABLET Take 1 tablet by mouth once d* Problem List As Of Date 11/30/2019 Noted Resolved CAD (coronary artery disease) [I25.10] 01/22/2005 More... 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 Pruritic disorder [L29.9] 03/23/2009 09/24/2010 Cardiomyopathy, ischemic [I25.5] 08/28/2009 COPD (Chronic Obstructive Pulmonary Disease) [J*10/17/2009 More... Atrial flutter [I48.92] 01/04/2010 12/29/2012 Atrial fibrillation [I48.91] 01/10/2010 Gastric ulcer, unspecified as acute or chronic,*11/12/2011 0 12/29/2012 Esophagitis, unspecified [K20.9] 11/12/2011 12/29/2012 Insomnia [G47.00] 06/30/2012 Occult GI bleeding [R19.5] 12/31/2012 01/10/2015 Nonspecific abnormal finding in stool contents *04/13/2014 1 06/14/2013 Colon polyps [K63.5] 01/10/2015 History of CVA (cerebrovascular accident) [Z86.*06/04/2017 More... History of basal cell carcinoma (BCC) of skin [*03/10/2018 More... Pleural plaque, left [J92.9] 10/29/2018 Transient ischemic attack (TIA) [G45.9] 09/20/2019 Non-ST elevated myocardial infarction (HCC) [I2*09/20/2019 Abnormal electroencephalogram (EEG) [R94.01] 09/22/2019 Encounter Status:Closed by Online Dealer NETWORK NAVIGATOR, RADHA Hartmann on 11/30/19 progress on 2019-11 PROGRESS HNO ID: [id number] Normal 11-02-2019 [facility] [place] Author: Cecilia Paredes ([id number]) Service: ? Author Type: Registered Nurse Type: Progress Notes Filed: 11/02/2019 1:01 PM Note Text: HIGH RISK CHRONIC DISEASE MONITORING Provider Action/FYI: Pt admitted to [facility] today for orthopedic surgery Contact made with patient: No - Unable to leave message - en tered next patient outreach date for the following week on the same iness day in Track Pt. Outreach - End Outreach Outreach ended cnptoutreach on CNPTOUTREACH Patient Outreach (INTMWS) Normal 0 11-02-2019 [facility] ALEXIA MERIDA ([id number]) 1935 [facility] Date Time Provider Department ([id number]) 11/02/19 CECILIA KATZ During your visit today, we recorded the following informati on about you: Cecilia Cardoza RN 11/02/2019 1:01 PM Signed HIGH RISK CHRONIC DISEASE MONITORING Provider Action/FYI: Pt admitted to [facility] today for orthopedic surgery Contact made with patient: No - Unable to leave message - en tered next patient outreach date for the following week on the same business day in Track Pt. Outreach - End Outreach Outreach ended Allergies As of Date: 11/02/2019 Noted Allergy Reaction PENICILLINS 01/22/2005 2 - Rash 9 - Itching SULFA (SULFONAMIDE ANTIBIOTICS) 01/22/2005 2 - Rash 9 - Itching Date Reviewed: 10/17/2019 Reviewed by: Delia Castro LPN - Fully Assessed Reason for Visit: Community Monitoring Outreach [Other] Prescriptions as of 11/02/2019 Sig: HYDROCODONE 5 MG-ACETAMINOPHE* Take 1.5 tablets by mouth onc * SPIRONOLACTONE 25 MG TABLET Take 1 tablet by mouth once d* LISINOPRIL 40 MG TABLET Take 1 tablet by mouth once d* ZOLPIDEM 5 MG TABLET Take 1 tablet by mouth at bed* ATORVASTATIN 40 MG TABLET Take 1 tablet by mouth once d* CARVEDILOL 6.25 MG TABLET Take 1 tablet by mouth twice * IPRATROPIUM BROMIDE 42 MCG (0* Use 2 Sprays in the nose thre * ALBUTEROL SULFATE HFA 90 MCG/* Inhale 1-2 Puffs as instructe * IPRATROPIUM 20 MCG-ALBUTEROL * Inhale 1 Puff as instructed. * APIXABAN 5 MG TABLET Take 1 tablet by mouth twice * MOMETASONE-FORMOTEROL HFA 200* Inhale as instructed twice da * FLUTICASONE PROPIONATE 50 MCG* Use 1-2 Sprays in each nostri * ASPIRIN 81 MG TABLET,DELAYED * Take 1 tablet by mouth once d * FUROSEMIDE 20 MG TABLET Take 1 tablet by mouth once d* Problem List As Of Date 11/02/2019 Noted Resolved CAD (coronary artery disease) [I25.10] 01/22/2005 More... 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 Pruritic disorder [L29.9] 03/23/2009 09/24/2010 Cardiomyopathy, ischemic [I25.5] 08/28/2009 COPD (Chronic Obstructive Pulmonary Disease) [J*10/17/2009 More... Atrial flutter [I48.92] 01/04/2010 12/29/2012 Atrial fibrillation [I48.91] 01/10/2010 Gastric ulcer, unspecified as acute or chronic,*11/12/2011 0 12/29/2012 Esophagitis, unspecified [K20.9] 11/12/2011 12/29/2012 Insomnia [G47.00] 06/30/2012 Occult GI bleeding [R19.5] 12/31/2012 01/10/2015 Nonspecific abnormal finding in stool contents *04/13/2014 1 06/14/2013 Colon polyps [K63.5] 01/10/2015 History of CVA (cerebrovascular accident) [Z86.*06/04/2017 More... History of basal cell carcinoma (BCC) of skin [*03/10/2018 More... Pleural plaque, left [J92.9] 10/29/2018 Transient ischemic attack (TIA) [G45.9] 09/20/2019 Non-ST elevated myocardial infarction (HCC) [I2*09/20/2019 Abnormal electroencephalogram (EEG) [R94.01] 09/22/2019 Encounter Status:Closed by CECILIA PAREDES on 11/02/19 progress on 2019-10 PROGRESS HNO ID: [id number] Normal 10-25-2019 [facility] Author: Irene (Rn) DONTE Jackson ([id number]) Service: ? Author Type: Registered Nurse Type: Progress Notes Filed: 10/25/2019 3:26 PM Note Text: . PROGRESS HNO ID: [id number] Normal 10-25-2019 [facility] Author: Susana ContrerasNetwork Navigator) Luz ([id number]) Service: ? Author Type: Appraiser Personal Property Type: Progress Notes Filed: 10/25/2019 12:55 PM Note Text: HIGH RISK CHRONIC DISEASE MONITORING Provider Action/FYI: Call in 1 week Contact made with patient: No - Unable to leave message - en tered next patient outreach date for the following week on the same in Track Pt. Outreach - End Outreach Outreach ended cnptoutreach on CNPTOUTREACH Patient Outreach ([facility]) Normal 0 10-25-2019 [facility] ALEXIA MERIDA ([id number]) 1935 [facility] Date Time Provider Department ([id number]) 10/25/19 SUSANA ESCOBARNETWORK NAVIGATOR)AMBMICHELLE During your visit today, we recorded the following informati on about you: TOMMIE Ferrara 10/25/2019 12:55 PM Sign ed HIGH RISK CHRONIC DISEASE MONITORING Provider Action/FYI: Call in 1 week Contact made with patient: No - Unable to leave message - en finn next patient outreach date for the following week on the same business day in Track Pt. Outreach - End Outreach Outreach ended Allergies As of Date: 10/25/2019 Noted Allergy Reaction PENICILLINS 01/22/2005 2 - Rash 9 - Itching SULFA (SULFONAMIDE ANTIBIOTICS) 01/22/2005 2 - Rash 9 - Itching Date Reviewed: 10/17/2019 Reviewed by: Delia Castro LPN - Fully Assessed Reason for Visit: community monitoring outreach [Other] Cmt: week 8 Prescriptions as of 10/25/2019 Sig: HYDROCODONE 5 MG-ACETAMINOPHE* Take 1.5 tablets by mouth onc * SPIRONOLACTONE 25 MG TABLET Take 1 tablet by mouth once d* LISINOPRIL 40 MG TABLET Take 1 tablet by mouth once d* ZOLPIDEM 5 MG TABLET Take 1 tablet by mouth at bed* ATORVASTATIN 40 MG TABLET Take 1 tablet by mouth once d* CARVEDILOL 6.25 MG TABLET Take 1 tablet by mouth twice * IPRATROPIUM BROMIDE 42 MCG (0* Use 2 Sprays in the nose thre * ALBUTEROL SULFATE HFA 90 MCG/* Inhale 1-2 Puffs as instructe * IPRATROPIUM 20 MCG-ALBUTEROL * Inhale 1 Puff as instructed. * APIXABAN 5 MG TABLET Take 1 tablet by mouth twice * MOMETASONE-FORMOTEROL HFA 200* Inhale as instructed twice da * FLUTICASONE PROPIONATE 50 MCG* Use 1-2 Sprays in each nostri * ASPIRIN 81 MG TABLET,DELAYED * Take 1 tablet by mouth once d * FUROSEMIDE 20 MG TABLET Take 1 tablet by mouth once d* Problem List As Of Date 10/25/2019 Noted Resolved CAD (coronary artery disease) [I25.10] 01/22/2005 More... 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 Pruritic disorder [L29.9] 03/23/2009 09/24/2010 Cardiomyopathy, ischemic [I25.5] 08/28/2009 COPD (Chronic Obstructive Pulmonary Disease) [J*10/17/2009 More... Atrial flutter [I48.92] 01/04/2010 12/29/2012 Atrial fibrillation [I48.91] 01/10/2010 Gastric ulcer, unspecified as acute or chronic,*11/12/2011 0 12/29/2012 Esophagitis, unspecified [K20.9] 11/12/2011 12/29/2012 Insomnia [G47.00] 06/30/2012 Occult GI bleeding [R19.5] 12/31/2012 01/10/2015 Nonspecific abnormal finding in stool contents *04/13/2014 1 06/14/2013 Colon polyps [K63.5] 01/10/2015 History of CVA (cerebrovascular accident) [Z86.*06/04/2017 More... History of basal cell carcinoma (BCC) of skin [*03/10/2018 More... Pleural plaque, left [J92.9] 10/29/2018 Transient ischemic attack (TIA) [G45.9] 09/20/2019 Non-ST elevated myocardial infarction (HCC) [I2*09/20/2019 Abnormal electroencephalogram (EEG) [R94.01] 09/22/2019 Encounter Status:Closed by LUZ NETWORK NAVIGATOR, RADHA Hartmann on 10/25/19 progress on 2019-10 PROGRESS HNO ID: [id number] Normal 10-17-2019 [facility] Author: Torin Noyola [place] ([id number]) Service: ? Author Type: Physician Type: Progress Notes Filed: 10/17/2019 3:15 PM Note Text: This note was created using mimoOnriter. Subjective Patient presents with: Preop Clearance: Right reverse total shoulder arthroplasty, 11/01/2019, Dr. Jose Tan Consultation requested by Dr. Tan for an opinion regardin g preoperative risk. My final recommendations will be communicated back to the requesting physician by way of shared Medical record or mary ellen er to requesting physician via US mail. Alexia Merida was surprisingly scheduled for right reverse total shoulder arthroplasty October 31. He was admitted in [place] on e month ago for transient ischemic attack, non STEMI. Information from [place] [facility] is limited. He has been doing well, and wishes to proceed with surgery. He was scheduled to see his remote mortgage underwriter in [place] tomorrow. S urgery will be in [place]. Review of Systems Constitutional: Negative for appetite change, chills, diapho resis, fever and unexpected weight change. HENT: Positive for postnasal drip. Negative for congestion, rhinorrhea, sore throat and trouble swallowing. Respiratory: Positive for shortness of breath. Negative for cough, chest tightness and wheezing. On BiPAP Cardiovascular: Negative for chest pain, palpitations and le g swelling. No paroxysmal nocturnal dyspnea. Gastrointestinal: Negative for abdominal pain, constipation and nausea. Genitourinary: Positive for difficulty urinating and urgency . Negative for dysuria and frequency. Musculoskeletal: Positive for arthralgias. Negative for gait problem. Skin: Negative for wound. Neurological: Negative for dizziness, syncope, facial asymme try, speech difficulty, weakness, light-headedness, numbness and headach es. Hematological: Negative. PAST MEDICAL HISTORY Diagnosis Date - Actinic keratosis 2008 - Atrial fibrillation (HCC) 01/10/2010 - Atrial flutter (HCC) 01/04/2010 - CAD (coronary artery disease) 01/22/2005 Ruben Nash MD. [facility] 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 10/04/2007 - Transient ischemic attack (TIA) 09/20/2019 - Unspecified cardiovascular disease Current Outpatient Medications Medication Sig - spironolactone (ALDACTONE) 25 mg tablet Take 1 tablet by m outh once daily. - lisinopril (ZESTRIL, PRINIVIL) 40 mg tablet Take 1 tablet by mouth once daily. - zolpidem (AMBIEN) 5 mg tablet Take 1 tablet by mouth at be dtind as needed for Sedation for up to 180 days. FOR SLEEP - atorvastatin (LIPITOR) 40 mg tablet Take 1 tablet by mouth once daily. - carvedilol (COREG) 6.25 mg tablet Take 1 tablet by mouth t wice daily. - ipratropium bromide (ATROVENT) 42 mcg (0.06 %) nasal spray Use 2 Sprays in the nose three times daily. - ipratropium-albuterol (COMBIVENT RESPIMAT) 20-100 mcg/actu ation mist Inhale 1 Puff as instructed. Inhale 1 puff once daily - apixaban (ELIQUIS) 5 mg tab(s) Take 1 tablet by mouth twic e daily. - fluticasone (FLONASE) 50 mcg/actuation nasal spray Use 1-2 Sprays in each nostril once daily. Rinse mouth after use. Use once belia ly as needed. - aspirin, enteric coated (ADULT LOW DOSE ASPIRIN) 81 mg EC tablet Take 1 tablet by mouth once daily. - furosemide 20 mg tablet Take 1 tablet by mouth once daily. - albuterol HFA (VENTOLIN HFA) 90 mcg/actuation inhaler Inha le 1-2 Puffs as instructed every 4 hours as needed. - mometasone-formoterol (DULERA) 200-5 mcg/actuation inhaler Inhale as instructed twice daily. No current facility-administered medications for this visit. Objective BP (P) 116/56 (BP Site: Left Arm, BP Position: Sitting, BP C uff Size: Large Adult) Pulse (P) 68 Temp (P) 36.2 ?C (97.2 ?F) (Te mporal Artery) Resp (P) 16 Wt (P) 89.3 kg (196 lb 12.8 oz) BM I (P) 29.92 kg/m? Physical Exam Constitutional: General: He is not in acute distress. Appearance: He is not ill-appearing. Eyes: Extraocular Movements: Extraocular movements intact. Conjunctiva/sclera: Conjunctivae normal. Neck: Vascular: No carotid bruit or JVD. Cardiovascular: Rate and Rhythm: Normal rate. Rhythm irregular. Heart sounds: No murmur. No gallop. Pulmonary: Effort: No respiratory distress. Breath sounds: Examination of the right-lower field reveals decreased breath sounds. Examination of the left-lower field reveals d ecreased breath sounds. Decreased breath sounds present. No wheezing or rales. Abdominal: General: There is no distension. Tenderness: There is no abdominal tenderness. Musculoskeletal: Right lower leg: No edema. Left lower leg: No edema. Neurological: General: No focal deficit present. Mental Status: He is alert. Cranial Nerves: No cranial nerve deficit. Sensory: No sensory deficit. Motor: No weakness. Gait: Gait normal. Assessment and Plan 1. Preoperative examination - ICD9: V72.84, ICD10: Z01.818 ( primary diagnosis) High risk. He is above average risk for all NSQIP surgical r isk indicators. I recommend postponing surgery 6 months. I will defer to his remote mortgage underwriter. See printed instructions or information. See f acsimile form for [facility]. 2. Non-ST elevated myocardial infarction (HCC) - ICD9: 410.7 0, ICD10: I21.4 Per [place] [facility]. 3. Cardiomyopathy, ischemic - ICD9: 414.8, ICD10: I25.5 Per [place] [facility]. 4. Transient ischemic attack (TIA) - ICD9: 435.9, ICD10: G45 .9 See #1. 5. Abnormal electroencephalogram (EEG) - ICD9: 794.02, ICD10 : R94.01 He was advised to follow up with neurology. Torin Noyola MD cnov on 2019-10-17 CNOV Office Visit (INTMWS) Normal 10-17-[address] [place] [address] [facility] MAGNOLIAALEXIA Paul ([id number]) 1935 [facility] Date Time Provider Department ([id number]) 10/17/19 2:20 PM TORIN NOYOLA INTMWS During your visit today, we recorded the following informati on about you: Torin Noyola MD 10/17/2019 3:15 PM Signed This note was created using mimoOnriter. Subjective Patient presents with: Preop Clearance: Right reverse total shoulder arthroplasty, 11/01/2019, Dr. Jose Tan Consultation requested by Dr. Tan for an opinion regardin g preoperative risk. My final recommendations will be communicated back to the requesting physician by way of shared edical record or letter to requesting physician via US mail. Alexia Miller [place] was surprisingly scheduled for right rever se total shoulder arthroplasty October 31. He was admitted in [place] one m onth ago for transient ischemic attack, non STEMI. Information from [place] i s limited. He has been doing well, and wishes to proceed with surgery. He was cyn eduled to see his remote mortgage underwriter in [place] tomorrow. Surgery will be in [place] . Review of Systems Constitutional: Negative for appetite change, chills, diaphoresis, fever and unexpected weight change. HENT: Positive for postnasal drip. Negative for conges tion, rhinorrhea, sore throat and trouble swallowing. Respiratory: Positive for shortness of breath. Negative for cough, chest tightness and wheezing. On BiPAP Cardiovascular: Negative for chest pain, palpitations and le g swelling. No paroxysmal nocturnal dyspnea. Gastrointestinal: Negative for abdominal pain, constipation and nausea. Genitourinary: Positive for difficulty urinating and urgency . Negative for dysuria and frequency. Musculoskeletal: Positive for arthralgias. Negative for gait problem. Skin: Negative for wound. Neurological: Negative for dizziness, syncope, facial asymme try, speech difficulty, weakness, light-headedness, numbness and headach es. Hematological: Negative. PAST MEDICAL HISTORY Diagnosis Date - Actinic keratosis 2008 - Atrial fibrillation (HCC) 01/10/2010 - Atrial flutter (HCC) 01/04/2010 - CAD (coronary artery disease) 01/22/2005 Ruben Nash MD. [facility]. 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 10/04/2007 - Transient ischemic attack (TIA) 09/20/2019 - Unspecified cardiovascular disease Current Outpatient Medications Medication Sig - spironolactone (ALDACTONE) 25 mg tablet Take 1 table t by mouth once daily. - lisinopril (ZESTRIL, PRINIVIL) 40 mg tablet Take 1 tablet by mouth once daily. - zolpidem (AMBIEN) 5 mg tab let Take 1 tablet by mouth at bedtime as needed for Sedation for up to 180 days. FOR SLEEP - atorvastatin (LIPITOR) 40 mg tablet Take 1 tablet by mouth once daily. - carvedilol (COREG) 6.25 mg tablet Take 1 tablet by mouth t wice daily. - ipratropium bromide (ATROVENT) 42 mcg (0.06 %) nasal spray Use 2 Sprays in the nose three times daily. - ipratropium-albuterol (COM BIVENT RESPIMAT) 20-100 mcg/actuation mist Inhale 1 Puff as instructed. Inhale 1 puff once daily - apixaban (ELIQUIS) 5 mg tab(s) Take 1 tablet by mouth twic e daily. - fluticasone (FLONASE) 50 mcg/actuation nasal spray Use 1 -2 Sprays in each nostril once daily. Rinse mouth after use. Use once daily as needed. - aspirin, enteric coated (ADULT LOW DOSE ASPIRIN) 81 mg EC tablet Take 1 tablet by mouth once daily. - furosemide 20 mg tablet Take 1 tablet by mouth once daily. - albuterol HFA (VENTOLIN HFA) 90 mcg/actuation inhaler In albarran 1-2 Puffs as instructed every 4 hours as needed. - mometasone-formoterol (DULERA) 200-5 mcg/actuation inhaler Inhale as instructed twice daily. No current facility-administered medications for this visit. Objective BP (P) 116/56 (BP Site: Left Arm, BP Position: Sitting, BP Cuff Size: Large Adult) Pulse (P) 68 Temp (P) 36.2 ?C (97.2 ?F) (Tempor al Artery) Resp (P) 16 Wt (P) 89.3 kg (196 lb 12.8 oz) BMI (P) 29.92 kg/ m? Physical Exam Constitutional: General: He is not in acute distress. Appearance: He is not ill-appearing. Eyes: Extraocular Movements: Extraocular movements intact. Conjunctiva/sclera: Conjunctivae normal. Neck: Vascular: No carotid bruit or JVD. Cardiovascular: Rate and Rhythm: Normal rate. Rhythm irregular. Heart sounds: No murmur. No gallop. Pulmonary: Effort: No respiratory distress. Breath sounds: Examination of the right-lower field re veals decreased breath sounds. Examination of the left-lower field reveals de creased breath sounds. Decreased breath sounds present. No wheezing or rales. Abdominal: General: There is no distension. Tenderness: There is no abdominal tenderness. Musculoskeletal: Right lower leg: No edema. Left lower leg: No edema. Neurological: General: No focal deficit present. Mental Status: He is alert. Cranial Nerves: No cranial nerve deficit. Sensory: No sensory deficit. Motor: No weakness. Gait: Gait normal. Assessment and Plan 1. Preoperative examination - ICD9: V72. 84, ICD10: Z01.818 (primary diagnosis) High risk. He is above average risk for all NSQI P surgical risk indicators. I recommend postponing surgery 6 months. I will defer to his remote mortgage underwriter. See printed instructions or information. See facsimile form for [facility]. 2. Non-ST elevated myocardial infarction (HCC) - ICD9: 410 .70, ICD10: I21.4 Per [facility]. 3. Cardiomyopathy, ischemic - ICD9: 414.8, ICD10: I25.5 Per [facility]. 4. Transient ischemic attack (TIA) - ICD9: 435.9, ICD10: G45 .9 See #1. 5. Abnormal electroencephalogram (EEG) - ICD9: 794.02, ICD10 : R94.01 He was advised to follow up with neurology. MD Torin Jane MD 10/17/2019 2:50 PM Addendum You are at high risk for surgery due to recent hospitaliza tions. You should consider postponing surgery for 5-6 months. I will defer to your remote mortgage underwriter for clearance. Referring Provider: JOSE TAN [[id number]] Allergies As of Date: 10/17/2019 Noted Allergy Reaction PENICILLINS 01/22/2005 2 - Rash 9 - Itching SULFA (SULFONAMIDE ANTIBIOTICS) 01/22/2005 2 - Rash 9 - Itching Date Reviewed: 10/17/2019 Reviewed by: Delia Castro LPN - Fully Assessed Reason for Visit: Preop Clearance [Other] Cmt: Right reverse total shoulder ar throplasty, 11/01/2019, Dr. Jose Tan Primary Visit Diagnosis:Preoperative examination [Z01.818] Other Visit Diagnoses:Non-ST elevated myocardial infarction (HCC) [I21.4] Cardiomyopathy, ischemic [I25.5] Transient ischemic attack (TIA) [G45.9] Abnormal electroencephalogram (EEG) [R94.01] Prescriptions as of 10/17/2019 Sig: SPIRONOLACTONE 25 MG TABLET Take 1 tablet by mouth once d* LISINOPRIL 40 MG TABLET Take 1 tablet by mouth once d* ZOLPIDEM 5 MG TABLET Take 1 tablet by mouth at bed* ATORVASTATIN 40 MG TABLET Take 1 tablet by mouth once d* CARVEDILOL 6.25 MG TABLET Take 1 tablet by mouth twice * IPRATROPIUM BROMIDE 42 MCG (0* Use 2 Sprays in the nose thre * IPRATROPIUM 20 MCG-ALBUTEROL * Inhale 1 Puff as instructed. * APIXABAN 5 MG TABLET Take 1 tablet by mouth twice * FLUTICASONE PROPIONATE 50 MCG* Use 1-2 Sprays in each nostri * ASPIRIN 81 MG TABLET,DELAYED * Take 1 tablet by mouth once d * FUROSEMIDE 20 MG TABLET Take 1 tablet by mouth once d* HYDROCODONE 5 MG-ACETAMINOPHE* Take 1.5 tablets by mouth onc * ALBUTEROL SULFATE HFA 90 MCG/* Inhale 1-2 Puffs as instructe * MOMETASONE-FORMOTEROL HFA 200* Inhale as instructed twice da * Problem List As Of Date 10/17/2019 Noted Resolved CAD (coronary artery disease) [I25.10] 01/22/2005 More... 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 Pruritic disorder [L29.9] 03/23/2009 09/24/2010 Cardiomyopathy, ischemic [I25.5] 08/28/2009 COPD (Chronic Obstructive Pulmonary Disease) [J*10/17/2009 More... Atrial flutter [I48.92] 01/04/2010 12/29/2012 Atrial fibrillation [I48.91] 01/10/2010 Gastric ulcer, unspecified as acute or chronic,*11/12/2011 0 12/29/2012 Esophagitis, unspecified [K20.9] 11/12/2011 12/29/2012 Insomnia [G47.00] 06/30/2012 Occult GI bleeding [R19.5] 12/31/2012 01/10/2015 Nonspecific abnormal finding in stool contents *04/13/2014 1 06/14/2013 Colon polyps [K63.5] 01/10/2015 History of CVA (cerebrovascular accident) [Z86.*06/04/2017 More... History of basal cell carcinoma (BCC) of skin [*03/10/2018 More... Pleural plaque, left [J92.9] 10/29/2018 Transient ischemic attack (TIA) [G45.9] 09/20/2019 Non-ST elevated myocardial infarction (HCC) [I2*09/20/2019 Abnormal electroencephalogram (EEG) [R94.01] 09/22/2019 Other instructions from your clinician: You are at high risk for surgery due to recent hospitalizati ons. You should consider postponing surgery for 5-6 months. I will defer to your remote mortgage underwriter for clearance. Encounter Status:Closed by TORIN NOYOLA MD on 10/17/19 xr chest 2 views on 2019-10-10 XR CHEST 2 ORIGINAL Normal 10-10-2019 [facility] VIEWS XR CHEST 2 VIEWS [place] ([place]) ([id number]) CLINICAL STATEMENT: Pre-admi ssion testing , patient with previous sternotomy, defibrillator, preop evaluation COMPARISON: Outside chest radiograph 09/20/2019 FINDINGS: Stable heart and m ediastinum with previous sternotomy. Left-sided defibrillator/pacemaker leads are present terminating in the RIGHT atrium and ventricle. There is no vascular congestion. Mode rate LEFT basilar opacity is similar to the earlier study.. RIGHT lung is clear. No acute skeletal findings. IMPRESSION: Persistent moder ate LEFT pleural effusion similar to the earlier study. Interpreted By: Aren Banda MD Preliminary Report By: Aren Banda MD Electronically Signed By: Aren Banda MD Dictated Date: 10/10/2019 4:27:36 PM Prelim Date: 10/10/2019 4:27:36 PM Sign Date: 10/10/2019 4:29:36 PM Ordering Provider:Jose Tan cbc on 2019-10-10 Erythrocyte distribution 14.0 11.5-14.5 % Normal 10-09 [facility] width (RBC) [Ratio] [place] ([place]) ([address]) Comment: Order Comment: Pre-Admission Testing Performed By: #### APTT, PRO #### [address] [address] Hematocrit (Bld) [Volume 39.3 42.0-52.0 % Low 10-09 [facility] fraction] ([place]) (0000 0) Comment: Order Comment: Pre-Admission Testing Performed By: #### APTT, PRO #### [address] [address] Hemoglobin (Bld) 13.1 14.0-18.0 G/dL Low 10-10-2019 [facility] [Mass/Vol] ([place]) (000 00) Comment: Order Comment: Pre-Admission Testing Performed By: #### APTT, PRO #### [address] [address] MCH (RBC) [Entitic mass] 31.8 27.0-31.2 pg High 10-09 [facility] ([place]) (0000 0) Comment: Order Comment: Pre-Admission Testing Performed By: #### APTT, PRO #### [address] [address] MCHC (RBC) [Mass/Vol] 33.5 31.8-35.4 G/dL Normal 10-10-19 20 [facility] ([place]) (0000 0) Comment: Order Comment: Pre-Admission Testing Performed By: #### APTT, PRO #### [address] [address] MCV (RBC) [Entitic vol] 94.9 80.0-94.0 fL High 2019 [facility] ([place]) (0000 0) Comment: Order Comment: Pre-Admission Testing Performed By: #### APTT, PRO #### [address] [address] Platelet mean volume 8.7 7.4-10.4 fL Normal 0 [facility] (Bld) [Entitic vol] ([place]) ([address]) Comment: Order Comment: Pre-Admission Testing Performed By: #### APTT, PRO #### [address] [address] Platelets (Bld) [#/Vol] 221 130-400 10 3/mcL Normal 2019 [facility] ([place]) ([address]) Comment: Order Comment: Pre-Admission Testing Performed By: #### APTT, PRO #### [address] [address] RBC (Bld) [#/Vol] 4.14 4.04-6.13 10 6/mcL Normal 10-10-2019 [facility] ([place]) (0000 0) Comment: Order Comment: Pre-Admission Testing Performed By: #### APTT, PRO #### [address] [address] WBC (Bld) [#/Vol] 5.30 4.60-10.80 10 3/mcL Normal 10-10-2019 [facility] ([place]) ([address]) Comment: Order Comment: Pre-Admission Testing Performed By: #### APTT, PRO #### [address] [address] bmp on 2019-10-10 Calcium [Mass/Vol] 9.0 8.4-10.2 mg/dL Normal 10-10-2019 [facility] ([place]) (0000 0) Comment: Performed By: #### APTT, PRO #### [address] [address] Chloride [Moles/Vol] 104 98-107 mmol/L Normal 0 [facility] ([place] (0000 0) Comment: Performed By: #### APTT, PRO #### [address] [address] CO2 [Moles/Vol] 30 23-31 mmol/L Normal 10-10-2019 [facility], [facility] ([place]) ([address]) Comment: Performed By: #### APTT, PRO #### [address] [address] Creatinine [Mass/Vol] 1.12 0.70-1.30 mg/dL Normal 10-10-19 20 [facility] ([place]) ([address]) Comment: Performed By: #### APTT, PRO #### [address] [address] Electrolyte Balance 7.0 mEq/L Normal 10-10-2019 [facility] ([place] ([address]) Comment: Performed By: #### APTT, PRO #### [address] [address] Glucose [Mass/Vol] 92 83-110 mg/dL Normal 10-10-2019 [facility] ([place]) ([address]) Comment: Performed By: #### APTT, PRO #### [facility] [address] [place] [address] Potassium [Moles/Vol] 4.7 3.5-5.1 mmol/L Normal 10-10-19 [facility] ([place]) (0000 0) Comment: Performed By: #### APTT, PRO #### [facility] [address] [place] [address] Sodium [Moles/Vol] 141 136-145 mmol/L Normal 10-10-2019 [facility] ([place] (0000 0) Comment: Performed By: #### APTT, PRO #### [address] [address] Urea nitrogen [Mass/Vol] 15 7-18 mg/dL Normal 10-09 [facility] ([place] (0000 0) Comment: Performed By: #### APTT, PRO #### [address] [address] Urea nitrogen/Creatinine [Mass 13 7-27 ratio Normal 10-10-2019 [facility] ratio] [facility] ([place]) ([address]) Comment: Performed By: #### APTT, PRO #### [address] [address] .neuabs on Neutrophils (Bld) 3.80 2.85-6.16 10 3/mcL Normal 10-10-2019 [facility] [#/Vol] [facility] ([place]) ([address]) Comment: Performed By: #### APTT, PRO #### [address] [address] .gfr on 2019-10-10 GFR 76 ml/min/1.73sqm Normal [facility] ([place]) (0000 0) Comment: Result Comment: GFR Population mean for Afri can Lithuanian, Non- Americans Ages 20-29 = 116 mL/min/1.73 sq.m. Ages 30-39 = 107 mL/min/1.73 sq.m. Ages 40-49 = 99 mL/min/1.73 sq.m. Ages 50-59 = 93 mL/min/1.73 sq.m. Ages 60-69 = 85 mL/min/1.73 sq.m. Ages 70+ = 75 mL/min/1.73 sq .m. Chronic Kidney Disease: Less than 60 mL/min/1.73 square meters End Stage Renal Disease: Les s than 15 mL/min/1.73 square meters Performed By: #### APTT, PRO #### [address] [address] GFR Non- 63 ml/min/1.73sqm Normal 10-10-2019 [facility] ([place]) ([address]) Comment: Result Comment: GFR Population mean for Afri can Lithuanian, Non- Americans Ages 20-29 = 116 mL/min/1.73 sq.m. Ages 30-39 = 107 mL/min/1.73 sq.m. Ages 40-49 = 99 mL/min/1.73 sq.m. Ages 50-59 = 93 mL/min/1.73 sq.m. Ages 60-69 = 85 mL/min/1.73 sq.m. Ages 70+ = 75 mL/min/1.73 sq .m. Chronic Kidney Disease: Less than 60 mL/min/1.73 square meters End Stage Renal Disease: Les s than 15 mL/min/1.73 square meters Performed By: #### APTT, PRO #### [address] [address] .auto diff on 10-09 Ammonia (P) [Mass/Vol] 0.50 0.15-1.00 10 3/mcL Normal 020 [facility] ([place]) ([address]) Comment: Performed By: #### APTT, PRO #### [address] [address] Basophils (Bld) 0.10 0.00-0.19 10 3/mcL Normal 10-10-2019 [facility] [#/Vol] [facility] ([place]) ([address]) Comment: Performed By: #### APTT, PRO #### [address] [address] Basophils/100 WBC (Bld) 1.3 0.0-2.5 % Normal 2019 [facility] ([place]) (0000 0) Comment: Performed By: #### APTT, PRO #### [address] [address] Eosinophils (Bld) 0.10 0.00-0.40 10 3/mcL Normal 10-10-2019 [facility] [#/Vol] [facility] ([place]) ([address]) Comment: Performed By: #### APTT, PRO #### [address] [address] Eosinophils/100 WBC (Bld) 2.4 0.0-7.0 % Normal -0 -2019 [facility] ([place]) (0000 0) Comment: Performed By: #### APTT, PRO #### [address] [address] Lymphocytes (Bld) 0.80 0.77-3.85 10 3/mcL Normal 10-10-2019 [facility] [#/Vol] [facility] ([place]) ([address]) Comment: Performed By: #### APTT, PRO #### [address] [address] Lymphocytes/100 WBC (Bld) 14.3 10.0-50.0 % Normal - [facility] ([place]) ([address]) Comment: Performed By: #### APTT, PRO #### [address] [address] Monocytes/100 WBC (Bld) 10.2 1.7-13.0 % Normal 2019 [facility] ([place]) (0000 0) Comment: Performed By: #### APTT, PRO #### [address] [address] Neutrophils/100 WBC (Bld) 71.8 37.0-80.0 % Normal [facility] ([place]) ([address]) Comment: Performed By: #### APTT, PRO #### [address] [address] progress on 2019-10 PROGRESS HNO ID: [id number] Normal 10-04-2019 [facility] Author: Ceciliapaul Paredes [place] ([id number]) Service: ? Author Type: Registered Nurse Type: Progress Notes Filed: 10/04/2019 1:19 PM Note Text: HIGH RISK CHRONIC DISEASE MONITORING Provider Action/FYI: Pt covered by TCM post hospitalization. Seeing [facility] 10/16 Contact made with patient: No - Unable to leave message - en tered next patient outreach date for the following week on the same in Track Pt. Outreach - End Outreach- NO CALL Outreach ended cnptoutreach on CNPTOUTREACH Patient Outreach (INTMWS) Normal 0 10-04-2019 [facility] ALEXIA MERIDA ([id number]) 1935 [facility] Date Time Provider Department ([id number]) 10/04/19 CECILIA KATZ During your visit today, we recorded the following informati on about you: Cecilia Cardoza RN 10/04/2019 1:19 PM Signed HIGH RISK CHRONIC DISEASE MONITORING Provider Action/FYI: Pt covered by TCM post hospitalization. Seeing [facility] 10/16 Contact made with patient: No - Unable to leave message - en tered next patient outreach date for the following week on the same in Track Pt. Outreach - End Outreach- NO CALL Outreach ended Allergies As of Date: 10/04/2019 Noted Allergy Reaction PENICILLINS 01/22/2005 2 - Rash 9 - Itching SULFA (SULFONAMIDE ANTIBIOTICS) 01/22/2005 2 - Rash 9 - Itching Date Reviewed: 09/17/2019 Reviewed by: Beena Pandya Ma - Fully Assessed Reason for Visit: Community Monitoring Outreach [Other] Prescriptions as of 10/04/2019 Sig: SPIRONOLACTONE 25 MG TABLET Take 1 tablet by mouth once d* LISINOPRIL 40 MG TABLET Take 1 tablet by mouth once d* ZOLPIDEM 5 MG TABLET Take 1 tablet by mouth at bed* ATORVASTATIN 40 MG TABLET Take 1 tablet by mouth once d* CARVEDILOL 6.25 MG TABLET Take 1 tablet by mouth twice * IPRATROPIUM BROMIDE 42 MCG (0* Use 2 Sprays in the nose thre * ALBUTEROL SULFATE HFA 90 MCG/* Inhale 1-2 Puffs as instructe * IPRATROPIUM 20 MCG-ALBUTEROL * Inhale 1 Puff as instructed. * APIXABAN 5 MG TABLET Take 1 tablet by mouth twice * MOMETASONE-FORMOTEROL HFA 200* Inhale as instructed twice da * FLUTICASONE PROPIONATE 50 MCG* Use 1-2 Sprays in each nostri * ASPIRIN 81 MG TABLET,DELAYED * Take 1 tablet by mouth once d * FUROSEMIDE 20 MG TABLET Take 1 tablet by mouth once d* Problem List As Of Date 10/04/2019 Noted Resolved CAD (coronary artery disease) [I25.10] 01/22/2005 More... 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 Pruritic disorder [L29.9] 03/23/2009 09/24/2010 Cardiomyopathy, ischemic [I25.5] 08/28/2009 COPD (Chronic Obstructive Pulmonary Disease) [J*10/17/2009 More... Atrial flutter [I48.92] 01/04/2010 12/29/2012 Atrial fibrillation [I48.91] 01/10/2010 Gastric ulcer, unspecified as acute or chronic,*11/12/2011 0 12/29/2012 Esophagitis, unspecified [K20.9] 11/12/2011 12/29/2012 Insomnia [G47.00] 06/30/2012 Occult GI bleeding [R19.5] 12/31/2012 01/10/2015 Nonspecific abnormal finding in stool contents *04/13/2014 1 06/14/2013 Colon polyps [K63.5] 01/10/2015 History of CVA (cerebrovascular accident) [Z86.*06/04/2017 More... History of basal cell carcinoma (BCC) of skin [*03/10/2018 More... Pleural plaque, left [J92.9] 10/29/2018 Transient ischemic attack (TIA) [G45.9] 09/20/2019 Non-ST elevated myocardial infarction (HCC) [I2*09/20/2019 Abnormal electroencephalogram (EEG) [R94.01] 09/22/2019 Encounter Status:Closed by CECILIA PAREDES on 10/04/19 progress on 2019-09 PROGRESS HNO ID: [id number] Normal 09-27-2019 [facility] Author: Patience Campbell [place] ([id number]) Service: ? Author Type: ? Type: Progress Notes Filed: 10/06/2019 9:15 AM Note Text: TRANSITION CARE MANAGEMENT (TCM) INITIAL CONTACT Appraiser Personal Property Outreach Provider Action/FYI: Initial contact with patient post discharge, spoke to jigar woodard Patient identified by name and . TRANSITION CARE MANAGEMENT INITIAL OUTREACH DOCUMENTATION: Date of Outreach: 09/27/2019 09/22/2019 Outreach Attempt 1: Contact Made Contact Not Made Date of Discharge 09/22/2019 09/21/2019 Some recent data might be hidden SUMMARY: -Pt discharged from [facility] on 09/22/19. -Admitted for: CVA Do you have a hospital follow up appointment with your PCP? Appointment on 10/17/19 with pcp form a pre op appt clearance . Pt says surgery is still scheduled at this time. He has PAT at [facility] 10/10/19. pcp to get these results. Pt is seeing is cardiolist Dr. Jones in the [facility] 10/18/19. Pt says he is seeing Orthopedic 10/06/19 .Yes. Remind patient of appointment date, time, and location. If not within 14 calendar days of discharge - please reschedule accordingly. MEDICATIONS: Many patients have questions or concerns about their medicat ions once they are home. Were you prescribed any new medications? If yes, what are those medications? spironolactine 25 mg daily Were you told to hold any medications? No Were any of your medications discontinued? If yes, what are those medications? Stop sotolol 8 mg Do you have any questions about getting or taking your medic ations? No Your discharge instructions/After visit Summary (AVS) are im portant in guiding you through the recovery process. Is there anything I might help you understand? No Do you have all the necessary equipment and supplies at home ? Yes Medical records from recent hospitalization: Placed for provider to review cnptoutreach on CNPTOUTREACH Patient Outreach (INTMWS) Normal 0 09-27-2019 [facility] ALEXIA MERIDA ([id number]) 1935 [facility] Date Time Provider Department ([id number]) 09/27/19 TORIN NOYOLA INTMWS During your visit today, we recorded the following informati on about you: Patience Campbell LPN 10/06/2019 9:15 AM Signed TRANSITION CARE MANAGEMENT (TCM) INITIAL CONTACT Appraiser Personal Property Outreach Provider Action/FYI: Initial contact with patient post discharge, spoke to jigar woodard Patient identified by name and . TRANSITION CARE MANAGEMENT INITIAL OUTREACH DOCUMENTATION: Date of Outreach: 09/27/2019 09/22/2019 Outreach Attempt 1: Contact Made Contact Not Made Date of Discharge 09/22/2019 09/21/2019 Some recent data might be hidden SUMMARY: -Pt discharged from [facility] on 09/22/19. -Admitted for: CVA Do you have a hospital follow up appointment with your PCP? Appointment on 10/17/19 with pcp form a pre op appt clearance . Pt says surgery is still scheduled at this time. He has PAT at [facility] 10/10/19. pcp to get these results. Pt is seeing is cardiolist Dr. Jones in the [place] office 10/18/19. Pt says he is seeing Orthopedic 10/06/19 .Yes. Remind patient of appointment date, time, and location. If not within 14 calendar days of discha rge - please reschedule accordingly. MEDICATIONS: Many patients have questions or concerns about their medications once they are home. Were you prescribed any new medications? If yes, what are those medications? spironolactine 25 mg daily Were you told to hold any medications? No Were any of your medications discontinued? If yes, what are those medications? Stop sotolol 8 mg Do you have any questions about getting or taking your medic ations? No Your discharge instructions/After visit Summary (AVS) are important in guiding you through the recovery pro cess. Is there anything I might help you understand? No Do you have all the necessary equipment and supplies at home ? Yes Medical records from recent hospitalization: Placed for provider to review Allergies As of Date: 09/27/2019 Noted Allergy Reaction PENICILLINS 01/22/2005 2 - Rash 9 - Itching SULFA (SULFONAMIDE ANTIBIOTICS) 01/22/2005 2 - Rash 9 - Itching Date Reviewed: 09/17/2019 Reviewed by: Beena Pandya Ma - Fully Assessed Reason for Visit: Transition Of Care [4074] Primary Visit Diagnosis:Essential hypertension [I10] Other Visit Diagnosis:Abnormal electroencephalogram (EEG) [R 94.01] Prescriptions as of 09/27/2019 Sig: SPIRONOLACTONE 25 MG TABLET Take 1 tablet by mouth once d* LISINOPRIL 40 MG TABLET Take 1 tablet by mouth once d* ZOLPIDEM 5 MG TABLET Take 1 tablet by mouth at bed* ATORVASTATIN 40 MG TABLET Take 1 tablet by mouth once d* CARVEDILOL 6.25 MG TABLET Take 1 tablet by mouth twice * IPRATROPIUM BROMIDE 42 MCG (0* Use 2 Sprays in the nose thre * ALBUTEROL SULFATE HFA 90 MCG/* Inhale 1-2 Puffs as instructe * IPRATROPIUM 20 MCG-ALBUTEROL * Inhale 1 Puff as instructed. * APIXABAN 5 MG TABLET Take 1 tablet by mouth twice * MOMETASONE-FORMOTEROL HFA 200* Inhale as instructed twice da * FLUTICASONE PROPIONATE 50 MCG* Use 1-2 Sprays in each nostri * ASPIRIN 81 MG TABLET,DELAYED * Take 1 tablet by mouth once d * FUROSEMIDE 20 MG TABLET Take 1 tablet by mouth once d* Problem List As Of Date 09/27/2019 Noted Resolved CAD (coronary artery disease) [I25.10] 01/22/2005 More... 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 Pruritic disorder [L29.9] 03/23/2009 09/24/2010 Cardiomyopathy, ischemic [I25.5] 08/28/2009 COPD (Chronic Obstructive Pulmonary Disease) [J*10/17/2009 More... Atrial flutter [I48.92] 01/04/2010 12/29/2012 Atrial fibrillation [I48.91] 01/10/2010 Gastric ulcer, unspecified as acute or chronic,*11/12/2011 0 12/29/2012 Esophagitis, unspecified [K20.9] 11/12/2011 12/29/2012 Insomnia [G47.00] 06/30/2012 Occult GI bleeding [R19.5] 12/31/2012 01/10/2015 Nonspecific abnormal finding in stool contents *04/13/2014 1 06/14/2013 Colon polyps [K63.5] 01/10/2015 History of CVA (cerebrovascular accident) [Z86.*06/04/2017 More... History of basal cell carcinoma (BCC) of skin [*03/10/2018 More... Pleural plaque, left [J92.9] 10/29/2018 Transient ischemic attack (TIA) [G45.9] 09/20/2019 Non-ST elevated myocardial infarction (HCC) [I2*09/20/2019 Abnormal electroencephalogram (EEG) [R94.01] 09/22/2019 Encounter Status:Closed by PATIENCE CAMPBELL LPN on 10/06/19 obsolete on 2019-09 OBSOLETE Refill (INTMWS) Normal 09-23-2019 [facility] ALEXIA MERIDA ([id number]) 1935 [facility] Date Time Provider Department ([id number]) 09/23/19 TORIN NOYOLA INTMWS During your visit today, we recorded the following informati on about you: Hannah Alcantar 09/23/2019 1:07 PM Signed Patient has been identified by name and date of : Yes Pending Prescriptions Disp Refills LISINOPRIL 40 MG TABLET 90 tablet 3 Sig: Take 1 tablet by mouth once daily. NIYA: No RX INSTRUCTIONS: Patient aware RX will be sent to pharmacy. No need to notify patient. Hannah Campbell ABIMBOLA 09/23/2019 1:12 PM Signed Called pt to review. He repo rts he is taking this daily and [facility] Torin Noyola MD 09/24/2019 8:58 AM Signed Limited information from Care Everywhere regarding recent cerebral vascular accident and acute ND. Lisinopril dose not changed on discha rge. Allergies As of Date: 09/23/2019 Noted Allergy Reaction PENICILLINS 01/22/2005 2 - Rash 9 - Itching SULFA (SULFONAMIDE ANTIBIOTICS) 01/22/2005 2 - Rash 9 - Itching Date Reviewed: 09/17/2019 Reviewed by: Beena Pandya Ma - Fully Assessed Reason for Visit: Refill Request [94] Order(s):lisinopril (ZESTRIL, PRINIVIL) 40 mg tabletTake 1 t ablet by mouth once daily.Disp: 90 tabletRfl: 3 Prescriptions as of 09/23/2019 Sig: LISINOPRIL 40 MG TABLET Take 1 tablet by mouth once d* ZOLPIDEM 5 MG TABLET Take 1 tablet by mouth at bed* ATORVASTATIN 40 MG TABLET Take 1 tablet by mouth once d* CARVEDILOL 6.25 MG TABLET Take 1 tablet by mouth twice * IPRATROPIUM BROMIDE 42 MCG (0* Use 2 Sprays in the nose thre * ALBUTEROL SULFATE HFA 90 MCG/* Inhale 1-2 Puffs as instructe * IPRATROPIUM 20 MCG-ALBUTEROL * Inhale 1 Puff as instructed. * APIXABAN 5 MG TABLET Take 1 tablet by mouth twice * MOMETASONE-FORMOTEROL HFA 200* Inhale as instructed twice da * FLUTICASONE PROPIONATE 50 MCG* Use 1-2 Sprays in each nostri * ASPIRIN 81 MG TABLET,DELAYED * Take 1 tablet by mouth once d * FUROSEMIDE 20 MG TABLET Take 1 tablet by mouth once d* Problem List As Of Date 09/23/2019 Noted Resolved CAD (coronary artery disease) [I25.10] 01/22/2005 More... 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 Pruritic disorder [L29.9] 03/23/2009 09/24/2010 Cardiomyopathy, ischemic [I25.5] 08/28/2009 COPD (Chronic Obstructive Pulmonary Disease) [J*10/17/2009 More... Atrial flutter [I48.92] 01/04/2010 12/29/2012 Atrial fibrillation [I48.91] 01/10/2010 Gastric ulcer, unspecified as acute or chronic,*11/12/2011 0 12/29/2012 Esophagitis, unspecified [K20.9] 11/12/2011 12/29/2012 Insomnia [G47.00] 06/30/2012 Occult GI bleeding [R19.5] 12/31/2012 01/10/2015 Nonspecific abnormal finding in stool contents *04/13/2014 1 06/14/2013 Colon polyps [K63.5] 01/10/2015 History of CVA (cerebrovascular accident) [Z86.*06/04/2017 More... History of basal cell carcinoma (BCC) of skin [*03/10/2018 More... Pleural plaque, left [J92.9] 10/29/2018 Transient ischemic attack (TIA) [G45.9] 09/20/2019 Non-ST elevated myocardial infarction (HCC) [I2*09/20/2019 Prescriptions ordered this encounter Disp Refills Start End LISINOPRIL 40 MG TABLET 90 t* 3 09/24/2019 Route: ORAL Sig: Take 1 tablet by mouth once daily. Medications Discontinued During This Encounter lisinopril 40 mg ORAL tablet 90 t* 3 03/25/2011 09/24/2019 Class: Print RX Route: ORAL Sig: Take 1 tablet by mouth once daily. Disc: Reason for discontinue is not on file. Encounter Status:Closed by TORIN NOYOLA MD on 09/24/19 progress on 2019-09 PROGRESS HNO ID: [id number] Normal 09-22-2019 [facility] [place] Author: Mary Burgos LPN ([id number]) Service: ? Author Type: ? Type: Progress Notes Filed: 09/22/2019 4:14 PM Note Text: Spoke to . Pt is not out of the hospital yet. Pt had a h eart cath done today. did cancel appt with Dr. Birmingham and said she would wait to schedule with Dr. Sharpe. Advised after pt is discharged she will be contacted to answer a few questions about hospital stay. Mary Burgos LPN PROGRESS HNO ID: [id number] Normal 09-22-2019 [facility] [place] Author: Patience Campbell LPN ([id number]) Service: ? Author Type: ? Type: Progress Notes Filed: 09/22/2019 4:14 PM Note Text: 1. Message left for pt to return call to a nurse to complete TCM note. rec'd records from [facility] regarding admission. No d/c summa ry yet. 2. Pt is scheduled for an in office appt with Dr. Birmingham. Mandy melchor review with pt. This can be cancelled and arrange TCM with pcp. pcp has available time to see pt. pro on 2019-09-22 INR Coag (PPP) [Relative 1.0 ratio Normal 09-21 [facility] time] ([place]) (0000 0) Comment: Result Comment: [employer] (CHEST, 1992, 102:312S-25S) recommended therapeutic rang e for oral anticoagulant therapy is: LOW RISK: Prophylaxis of manfred ous thrombosis INR: 2.0-3.0 Treatment of pulmonary embol ism 2.0-3.0 Prevention of systemic embol ism 2.0-3.0 HIGH RISK: Mechanical prosth etic valves 2.5-3.5 Performed By: #### APTT, PRO #### [facility] [address] [place] [address] PT Coag (PPP) [Time] 11.9 9.0-14.6 seconds Normal 0 [facility] ([place]) ([id number]) Comment: Result Comment: Effective , Protime results may be affected by some antibiotics (i.e. Ciprofloxa joshua, Azithromycin, Bactrim) which may potentiate the action of oral anticoagu lants, with further increases in Protime/INR. Performed By: #### APTT, PRO #### [facility] [address] [place] [address] mg on 2019-09-22 Magnesium [Mass/Vol] 2.3 1.6-2.4 mg/dL Normal 0 [facility] ([place]) (0000 0) Comment: Performed By: #### APTT, PRO #### [facility] [address] [place] [address] cnptoutreach on CNPTOUTREACH Patient Outreach (INTMWS) Normal 0 09-22-2019 [place] ALEX[place] Perera ([id number]) 1935 M [place] Date Time Provider Department ([id number]) 09/22/19 TORIN NOYOLA INTMWS During your visit today, we recorded the following informati on about you: Patience Campbell LPN 09/22/2019 4:14 PM Signed 1. Message left for pt to return call to a nurse to co mplete TCM note. rec'd records from [facility] regarding admission. No d/c summary yet . 2. Pt is scheduled for an in office appt with Dr. Birmingham. Please review with pt. This can be cancelled and arrange TCM with pcp. pcp has available time to see pt. Mary Burgos ABIMBOLA 09/22/2019 4:14 PM Signed Spoke to . Pt is not out of the hospital yet. Pt had a h eart cath done today. did cancel appt with Dr. Birmingham and sa id she would wait to schedule with Dr. Sharpe. Advised after pt is discharged she will be contacted to answer a few questions about hospital stay. Mary Dempseyllow ABIMBOLA Allergies As of Date: 09/22/2019 Noted Allergy Reaction PENICILLINS 01/22/2005 2 - Rash 9 - Itching SULFA (SULFONAMIDE ANTIBIOTICS) 01/22/2005 2 - Rash 9 - Itching Date Reviewed: 09/17/2019 Reviewed by: Beena Pandya Ma - Fully Assessed Reason for Visit: Transition Of Care [4074] Prescriptions as of 09/22/2019 Sig: ZOLPIDEM 5 MG TABLET Take 1 tablet by mouth at bed* ATORVASTATIN 40 MG TABLET Take 1 tablet by mouth once d* CARVEDILOL 6.25 MG TABLET Take 1 tablet by mouth twice * IPRATROPIUM BROMIDE 42 MCG (0* Use 2 Sprays in the nose thre * ALBUTEROL SULFATE HFA 90 MCG/* Inhale 1-2 Puffs as instructe * IPRATROPIUM 20 MCG-ALBUTEROL * Inhale 1 Puff as instructed. * APIXABAN 5 MG TABLET Take 1 tablet by mouth twice * MOMETASONE-FORMOTEROL HFA 200* Inhale as instructed twice da * FLUTICASONE PROPIONATE 50 MCG* Use 1-2 Sprays in each nostri * ASPIRIN 81 MG TABLET,DELAYED * Take 1 tablet by mouth once d * FUROSEMIDE 20 MG TABLET Take 1 tablet by mouth once d* LISINOPRIL 40 MG TABLET Take 1 tablet by mouth once d* Problem List As Of Date 09/22/2019 Noted Resolved CAD (coronary artery disease) [I25.10] 01/22/2005 More... 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 Pruritic disorder [L29.9] 03/23/2009 09/24/2010 Cardiomyopathy, ischemic [I25.5] 08/28/2009 COPD (Chronic Obstructive Pulmonary Disease) [J*10/17/2009 More... Atrial flutter [I48.92] 01/04/2010 12/29/2012 Atrial fibrillation [I48.91] 01/10/2010 Gastric ulcer, unspecified as acute or chronic,*11/12/2011 0 12/29/2012 Esophagitis, unspecified [K20.9] 11/12/2011 12/29/2012 Insomnia [G47.00] 06/30/2012 Occult GI bleeding [R19.5] 12/31/2012 01/10/2015 Nonspecific abnormal finding in stool contents *04/13/2014 1 06/14/2013 Colon polyps [K63.5] 01/10/2015 History of CVA (cerebrovascular accident) [Z86.*06/04/2017 More... History of basal cell carcinoma (BCC) of skin [*03/10/2018 More... Pleural plaque, left [J92.9] 10/29/2018 Transient ischemic attack (TIA) [G45.9] 09/20/2019 Non-ST elevated myocardial infarction (HCC) [I2*09/20/2019 Encounter Status:Closed by PATIENCE CAMPBELL LPN on 09/22/19 cbc on 2019-09-22 Erythrocyte distribution 13.9 11.5-15.5 % Normal 09-21 [facility] width (RBC) [Ratio] [facility] ([place]) (30904) Comment: Performed By: #### APTT, PRO #### [address] [address] Hematocrit (Bld) [Volume 40.2 40.0-52.0 % Normal 09-21 [facility] fraction] ([place]) (0000 0) Comment: Performed By: #### APTT, PRO #### [address] [address] Hemoglobin (Bld) 13.7 13.0-17.5 G/dL Normal 09-22-2019 [facility] [Mass/Vol] [facility] ([place]) (71636) Comment: Performed By: #### APTT, PRO #### [address] [address] MCH (RBC) [Entitic mass] 32.2 27.0-33.0 pg Normal 09-21 [facility] ([place]) (0000 0) Comment: Performed By: #### APTT, PRO #### [address] [address] MCHC (RBC) [Mass/Vol] 34.1 32.0-36.0 G/dL Normal 09-22-19 [facility] ([place]) (0000 0) Comment: Performed By: #### APTT, PRO #### [address] [address] MCV (RBC) [Entitic vol] 94.5 81.0-100.0 fL Normal 09-21 [facility] ([place]) (0000 0) Comment: Performed By: #### APTT, PRO #### [address] [address] Platelet mean volume 8.3 6.4-10.5 fL Normal 0 [facility] (Bld) [Entitic vol] ([place]) (60542) Comment: Performed By: #### APTT, PRO #### [address] [address] Platelets (Bld) [#/Vol] 222 150-450 10 3/mcL Normal 2019 [facility] ([place]) (66403) Comment: Performed By: #### APTT, PRO #### [address] [address] RBC (Bld) [#/Vol] 4.25 4.50-6.00 10 6/mcL Low 09-22-2019 [facility] ([place]) (0000 0) Comment: Performed By: #### APTT, PRO #### [address] [address] WBC (Bld) [#/Vol] 6.30 4.50-10.80 10 3/mcL Normal 09-22-2019 [facility] ([place]) (87811) Comment: Performed By: #### APTT, PRO #### [place] [id number] Erythrocyte distribution 13.5 11.5-15.5 % Normal 09-21 [facility] (RBC) [Ratio] [facility] ([place]) (49275) Comment: Performed By: #### APTT, PRO #### [address] [address] Hematocrit (Bld) [Volume 36.0 40.0-52.0 % Low 09-21 [facility] fraction] ([place]) (0000 0) Comment: Performed By: #### APTT, PRO #### [address] [address] Hemoglobin (Bld) 12.2 13.0-17.5 G/dL Low 09-22-2019 [facility] [Mass/Vol] ([place]) (000 00) Comment: Performed By: #### APTT, PRO #### [address] [address] MCH (RBC) [Entitic mass] 32.3 27.0-33.0 pg Normal 09-21 [facility] ([place]) (0000 0) Comment: Performed By: #### APTT, PRO #### [place] [address] MCHC (RBC) [Mass/Vol] 33.9 32.0-36.0 G/dL Normal 09-22-19 20 [facility] ([place]) (0000 0) Comment: Performed By: #### APTT, PRO #### [place] [id number] MCV (RBC) [Entitic vol] 95.4 81.0-100.0 fL Normal 09-21 [facility] ([place]) (0000 0) Comment: Performed By: #### APTT, PRO #### [place] [address] Platelet mean volume 8.3 6.4-10.5 fL Normal 0 [facility] (Bld) [Entitic vol] ([place]) (82763) Comment: Performed By: #### APTT, PRO #### [address] [address] Platelets (Bld) [#/Vol] 191 150-450 10 3/mcL Normal 2019 [facility] ([place]) (26250) Comment: Performed By: #### APTT, PRO #### [place] [id number] RBC (Bld) [#/Vol] 3.77 4.50-6.00 10 6/mcL Low 09-22-2019 [facility] ([place]) (0000 0) Comment: Performed By: #### APTT, PRO #### [address] [address] WBC (Bld) [#/Vol] 6.30 4.50-10.80 10 3/mcL Normal 09-22-2019 [facility] ([place]) (90314) Comment: Performed By: #### APTT, PRO #### [address] [address] bmp on 2019-09-22 Creatinine [Mass/Vol] 0.96 0.60-1.40 mg/dL Normal 09-22-19 20 [facility] ([place]) (64633) Comment: Performed By: #### APTT, PRO #### [address] [address] Urea nitrogen/Creatinine 15.6 10.0-22.0 ratio Normal 09-21 [facility] [Mass ratio] [place] ([place]) (27460) Comment: Performed By: #### APTT, PRO #### [address] [address] Calcium [Mass/Vol] 8.6 8.4-10.1 mg/dL Normal 09-22-2019 [facility] ([place]) (0000 0) Comment: Performed By: #### APTT, PRO #### [address] [address] Chloride [Moles/Vol] 108 98-110 mEq/L Normal 0 [facility] ([place]) (0000 0) Comment: Performed By: #### APTT, PRO #### [address] [address] CO2 [Moles/Vol] 23 22-32 mEq/L Normal 09-22-2019 [facility] ([place]) (29745) Comment: Performed By: #### APTT, PRO #### [address] [address] Electrolyte Balance 9.0 4.0-15.0 mEq/L Normal 09-22-2019 [facility] ([place]) (0000 0) Comment: Performed By: #### APTT, PRO #### [address] [address] Glucose [Mass/Vol] 103 82-115 mg/dL Normal 09-22-2019 [facility] ([place]) (82968) Comment: Performed By: #### APTT, PRO #### [address] [address] Potassium [Moles/Vol] 3.5 3.5-5.0 mEq/L Normal 09-22-19 20 [facility] ([place]) (0000 0) Comment: Performed By: #### APTT, PRO #### [address] [address] Sodium [Moles/Vol] 140 136-145 mEq/L Normal 09-22-2019 [facility] ([place]) (51315) Comment: Performed By: #### APTT, PRO #### [address] [address] Urea nitrogen [Mass/Vol] 15.0 8.0-22.0 mg/dL Normal 09-21 [facility] ([place]) (59885) Comment: Performed By: #### APTT, PRO #### [address] [address] aptt on 2019-09-22 aPTT Coag (Bld) 30.6 25.0-35.0 seconds Normal 09-22-2019 [facility] [Time] [facility] ([place]) (49979) Comment: Result Comment: For Heparin anticoagulation therapy, the recommended therapeutic range is: 54-77 seconds (APTT Correlation with Anti-Xa therapeutic ran ge of 0.3-0.7 units/ml). PLEASE REFERENCE THE PHARMAC Y PROTOCOL FOR DOSING. Performed By: #### APTT, PRO #### [address] [address] aPTT Coag (Bld) [Time] Heparin IV Normal 2019 [facility] ([place]) (0000 0) Comment: Performed By: #### APTT, PRO #### [address] [address] .neuabs on Neutrophils (Bld) 4.70 2.25-8.10 10 3/mcL Normal 09-22-2019 [facility] [#/Vol] [facility] ([place]) (60886) Comment: Performed By: #### APTT, PRO #### [address] [address] Neutrophils (Bld) 4.50 2.25-8.10 10 3/mcL Normal 09-22-2019 [facility] [#/Vol] [facility] ([place]) (13678) Comment: Performed By: #### APTT, PRO #### [facility] [address] [place] [address] .gfr on 2019-09-22 GFR >60 Normal 09-21- 0 [facility] ([place]) (33943) Comment: Result Comment: GFR Population mean for Afri can Lithuanian, Non- Americans Ages 20-29 = 116 mL/min/1.73 sq.m. Ages 30-39 = 107 mL/min/1.73 sq.m. Ages 40-49 = 99 mL/min/1.73 sq.m. Ages 50-59 = 93 mL/min/1.73 sq.m. Ages 60-69 = 85 mL/min/1.73 sq.m. Ages 70+ = 75 mL/min/1.73 sq .m. Chronic Kidney Disease: Less than 60 mL/min/1.73 square meters End Stage Renal Disease: Les s than 15 mL/min/1.73 square meters Performed By: #### APTT, PRO #### [facility] [address] [place] [address] GFR Non- >60 Normal 09-21 [facility] ([place]) (13380) Comment: Result Comment: GFR Population mean for Afri can Lithuanian, Non- Americans Ages 20-29 = 116 mL/min/1.73 sq.m. Ages 30-39 = 107 mL/min/1.73 sq.m. Ages 40-49 = 99 mL/min/1.73 sq.m. Ages 50-59 = 93 mL/min/1.73 sq.m. Ages 60-69 = 85 mL/min/1.73 sq.m. Ages 70+ = 75 mL/min/1.73 sq .m. Chronic Kidney Disease: Less than 60 mL/min/1.73 square meters End Stage Renal Disease: Les s than 15 mL/min/1.73 square meters Performed By: #### APTT, PRO #### [facility] [address] [place] [address] .auto diff on 09-21 Ammonia (P) [Mass/Vol] 0.60 0.09-1.40 10 3/mcL Normal 020 [facility] ([place]) (53697) Comment: Performed By: #### APTT, PRO #### [address] [address] Basophils (Bld) 0.10 0.00-0.27 10 3/mcL Normal 09-22-2019 [facility] [#/Vol] [facility] ([place]) (24041) Comment: Performed By: #### APTT, PRO #### [address] [address] Basophils/100 WBC (Bld) 0.9 0.0-2.5 % Normal 2019 [facility] ([place]) (0000 0) Comment: Performed By: #### APTT, PRO #### [address] [address] Eosinophils (Bld) 0.20 0.00-0.65 10 3/mcL Normal 09-22-2019 [facility] [#/Vol] [facility] ([place]) (25799) Comment: Performed By: #### APTT, PRO #### [address] [address] Eosinophils/100 WBC (Bld) 2.7 0.0-6.0 % Normal 09-02 [facility] ([place]) (0000 0) Comment: Performed By: #### APTT, PRO #### [address] [address] Lymphocytes (Bld) 0.80 0.90-4.32 10 3/mcL Low 09-22-2019 [facility] [#/Vol] [facility] ([place]) (54189) Comment: Performed By: #### APTT, PRO #### [address] [address] Lymphocytes/100 WBC (Bld) 12.9 20.0-40.0 % Low 09-02 [facility] ([place]) (0000 0) Comment: Performed By: #### APTT, PRO #### [address] [address] Monocytes/100 WBC (Bld) 9.5 2.0-13.0 % Normal 2019 [facility] ([place] (0000 0) Comment: Performed By: #### APTT, PRO #### [address] [address] Neutrophils/100 WBC (Bld) 74.0 50.0-75.0 % Normal 09-02 [facility] ([place]) (46411) Comment: Performed By: #### APTT, PRO #### [address] [address] Ammonia (P) [Mass/Vol] 0.70 0.09-1.40 10 3/mcL Normal 020 [facility] ([place]) (06778) Comment: Performed By: #### APTT, PRO #### [address] [address] Basophils (Bld) 0.00 0.00-0.27 10 3/mcL Normal 09-22-2019 [facility] [#/Vol] [facility] ([place]) (57548) Comment: Performed By: #### APTT, PRO #### [address] [address] Basophils/100 WBC (Bld) 0.6 0.0-2.5 % Normal 2019 [facility] ([place]) (0000 0) Comment: Performed By: #### APTT, PRO #### [address] [address] Eosinophils (Bld) 0.20 0.00-0.65 10 3/mcL Normal 09-22-2019 [facility] [#/Vol] [facility] ([place]) (19586) Comment: Performed By: #### APTT, PRO #### [address] [address] Eosinophils/100 WBC (Bld) 2.9 0.0-6.0 % Normal 09-02 [facility] ([place]) (0000 0) Comment: Performed By: #### APTT, PRO #### [address] [address] Lymphocytes (Bld) 0.90 0.90-4.32 10 3/mcL Normal 09-22-2019 [facility] [#/Vol] [facility] ([place]) (94888) Comment: Performed By: #### APTT, PRO #### [place] [address] [place] [address] Lymphocytes/100 WBC (Bld) 14.5 20.0-40.0 % Low - [facility] ([place]) (0000 0) Comment: Performed By: #### APTT, PRO #### [address] [address] Monocytes/100 WBC (Bld) 10.4 2.0-13.0 % Normal 2019 [facility] ([place]) (0000 0) Comment: Performed By: #### APTT, PRO #### [address] [address] Neutrophils/100 WBC (Bld) 71.6 50.0-75.0 % Normal - [facility] ([place]) (99492) Comment: Performed By: #### APTT, PRO #### [address] [address] tropi on 2019-09-21 Troponin I.cardiac 2.120 0.000-0.040 ng/mL [facility] 0 [facility] [Mass/Vol] [place] [facility] [place] (88461) Comment: Result Comment: Troponin I r eference ranges (01/09/14): 0.00-0.040 ng/mL Negative an d non-diagnostic. >0.040 ng/mL Consistent with cardiac damage, increased clinical risk and possibility of myocardial in farction. Serial measurements, a rise & fall in test results, clinical histo ry, appropriate symptoms and/or ECG changes may help assess possibility of ND. *Other non-acute coronary sy ndrome conditions such as CHF, myoc arditis, pulmonary emboli, sepsis and cardiac surgery could result in myoc ardial damage and increased troponi n levels. Performed By: #### APTT, PRO #### [facility] [address] [place] [address] Troponin I.cardiac 2.180 0.000-0.040 ng/mL High 0 [facility] [Mass/Vol] [facility] [facility] ([place]) (63335) Comment: Result Comment: Troponin I r eference ranges (01/09/14): 0.00-0.040 ng/mL Negative an d non-diagnostic. >0.040 ng/mL Consistent with cardiac damage, increased clinical risk and possibility of myocardial in farction. Serial measurements, a rise & fall in test results, clinical histo ry, appropriate symptoms and/or ECG changes may help assess possibility of ND. *Other non-acute coronary sy ndrome conditions such as CHF, myoc arditis, pulmonary emboli, sepsis and cardiac surgery could result in myoc ardial damage and increased troponi n levels. Performed By: #### TROPI ### # [address] [address] Troponin I.cardiac 2.690 0.000-0.040 ng/mL High 0 [facility] [Mass/Vol] [place] [facility] ([place] (08034) Comment: Result Comment: Troponin I r eference ranges (01/09/14): 0.00-0.040 ng/mL Negative an d non-diagnostic. >0.040 ng/mL Consistent with cardiac damage, increased clinical risk and possibility of myocardial in farction. Serial measurements, a rise & fall in test results, clinical histo ry, appropriate symptoms and/or ECG changes may help assess possibility of ND. *Other non-acute coronary sy ndrome conditions such as CHF, myoc arditis, pulmonary emboli, sepsis and cardiac surgery could result in myoc ardial damage and increased troponi n levels. Performed By: #### TROPI ### # [address] [address] mg on 2019-09-21 Magnesium [Mass/Vol] 2.4 1.6-2.4 mg/dL Normal 0 [facility] ([place]) (0000 0) Comment: Performed By: #### CBC, ADIF F, ANEU, MG, BMP, GFR #### [address] [address] [address] head or brain w/o contrast on 2019-09-21 CT HEAD OR BRAIN ORIGINAL Normal 09-21-2019 [facility] W/O CONTRAST Head CT [place] ([place]) (22302) INDICATION: stroke f/u COMPARISON: Outside CT previous day TECHNIQUE: Routine non-contrast head CT. This exam was performed acco rding to our departmental dose optimization program, and includes the following measures where applicable: automated exposure control, adjustment of the mAs and/or kVp accord ing to patient size and/or exam, and an iterative reconstr uction algorithm. FINDINGS: There is a moderat e area of encephalomalacia in the anterior RIGHT temporal lobe. The ventricles and sulci are otherwise mildly enlarged. There are no abnormal intra or extra-axial fluid colle ction. There is mild irregul ar decreased attenuation in the cerebral white matter. The calvaria and the bones of the base of the skull are inta ct. IMPRESSION: No significant interval change. Interpreted By: Alexia Palumbo MD Preliminary Report By: Alexia Palumbo MD Electronically Signed By: Alexia Palumbo MD Dictated Date: 09/21/2019 2:20:35 PM Prelim Date: 09/21/2019 2:20:35 PM Sign Date: 09/21/2019 2:22:32 PM Ordering Provider:Siddharth Neely cbc on 2019-09-21 Erythrocyte distribution 13.4 11.5-15.5 % Normal 09-20 [facility] width (RBC) [Ratio] [facility] ([place]) (04383) Comment: Performed By: #### CBC, ADIF F, ANEU, MG, BMP, GFR #### [address] [address] Hematocrit (Bld) [Volume 37.1 40.0-52.0 % Low 09-20 [facility] fraction] ([place]) (0000 0) Comment: Performed By: #### CBC, ADIF F, ANEU, MG, BMP, GFR #### [address] [address] Hemoglobin (Bld) 12.9 13.0-17.5 G/dL Low 09-21-2019 [facility] [Mass/Vol] ([place]) (000 00) Comment: Performed By: #### CBC, ADIF F, ANEU, MG, BMP, GFR #### [address] [address] MCH (RBC) [Entitic mass] 32.2 27.0-33.0 pg Normal 09-20 [facility] ([place]) (0000 0) Comment: Performed By: #### CBC, ADIF F, ANEU, MG, BMP, GFR #### [place] [address] MCHC (RBC) [Mass/Vol] 34.7 32.0-36.0 G/dL Normal 09-21-19 20 [facility] ([place]) (0000 0) Comment: Performed By: #### CBC, ADIF F, ANEU, MG, BMP, GFR #### [place] [address] MCV (RBC) [Entitic vol] 93.0 81.0-100.0 fL Normal 09-20 [facility] ([place]) (0000 0) Comment: Performed By: #### CBC, ADIF F, ANEU, MG, BMP, GFR #### [place] [address] Platelet mean volume 8.4 6.4-10.5 fL Normal 0 [facility] (Bld) [Entitic vol] ([place]) (89362) Comment: Performed By: #### CBC, ADIF F, ANEU, MG, BMP, GFR #### [place] [id number] Platelets (Bld) [#/Vol] 215 150-450 10 3/mcL Normal 2019 [facility] ([place]) (58259) Comment: Performed By: #### CBC, ADIF F, ANEU, MG, BMP, GFR #### [place] [address] RBC (Bld) [#/Vol] 3.99 4.50-6.00 10 6/mcL Low 09-21-2019 [facility] ([place]) (0000 0) Comment: Performed By: #### CBC, ADIF F, ANEU, MG, BMP, GFR #### [place] [id number] WBC (Bld) [#/Vol] 6.60 4.50-10.80 10 3/mcL Normal 09-21-2019 [facility] ([place]) (95842) Comment: Performed By: #### CBC, ADIF F, ANEU, MG, BMP, GFR #### [address] [address] bmp on 2019-09-21 Creatinine [Mass/Vol] 0.90 0.60-1.40 mg/dL Normal 09-21-19 20 [facility] ([place]) (01149) Comment: Performed By: #### CBC, ADIF F, ANEU, MG, BMP, GFR #### [address] [address] Urea nitrogen/Creatinine 13.3 10.0-22.0 ratio Normal 09-20 [facility] [Mass ratio] [facility] ([place]) ([id number]) Comment: Performed By: #### CBC, ADIF F, ANEU, MG, BMP, GFR #### [address] [address] Calcium [Mass/Vol] 8.6 8.4-10.1 mg/dL Normal 09-21-2019 [facility] ([place]) (0000 0) Comment: Performed By: #### CBC, ADIF F, ANEU, MG, BMP, GFR #### [address] [address] Chloride [Moles/Vol] 107 98-110 mEq/L Normal 0 [facility] ([place]) (0000 0) Comment: Performed By: #### CBC, ADIF F, ANEU, MG, BMP, GFR #### [address] [address] CO2 [Moles/Vol] 26 22-32 mEq/L Normal 09-21-2019 [facility], [facility] ([place]) ([id number]) Comment: Performed By: #### CBC, ADIF F, ANEU, MG, BMP, GFR #### [address] [address] Electrolyte Balance 8.0 4.0-15.0 mEq/L Normal 09-21-2019 [facility] ([place]) (0000 0) Comment: Performed By: #### CBC, ADIF F, ANEU, MG, BMP, GFR #### [place] [id number] Glucose [Mass/Vol] 111 82-115 mg/dL Normal 09-21-2019 [facility] ([place]) ([id number]) Comment: Performed By: #### CBC, ADIF F, ANEU, MG, BMP, GFR #### [place] [id number] Potassium [Moles/Vol] 3.3 3.5-5.0 mEq/L Low 09-21-19 20 [facility] ([place]) ([id number]) Comment: Performed By: #### CBC, ADIF F, ANEU, MG, BMP, GFR #### [place] [address] Sodium [Moles/Vol] 141 136-145 mEq/L Normal 09-21-2019 [facility] ([place]) ([id number]) Comment: Performed By: #### CBC, ADIF F, ANEU, MG, BMP, GFR #### [address] [address] Urea nitrogen [Mass/Vol] 12.0 8.0-22.0 mg/dL Normal 09-20 [facility] ([place]) ([id number]) Comment: Performed By: #### CBC, ADIF F, ANEU, MG, BMP, GFR #### [address] [address] .neuabs on Neutrophils (Bld) 5.00 2.25-8.10 10 3/mcL Normal 09-21-2019 [facility] [#/Vol] [facility] ([place]) ([address]) Comment: Performed By: #### CBC, ADIF F, ANEU, MG, BMP, GFR #### [address] [address] .gfr on 2019-09-21 GFR Non- >60 Normal 09-20 [facility] ([place]) ([id number]) Comment: Result Comment: GFR Population mean for Afri can Lithuanian, Non- Americans Ages 20-29 = 116 mL/min/1.73 sq.m. Ages 30-39 = 107 mL/min/1.73 sq.m. Ages 40-49 = 99 mL/min/1.73 sq.m. Ages 50-59 = 93 mL/min/1.73 sq.m. Ages 60-69 = 85 mL/min/1.73 sq.m. Ages 70+ = 75 mL/min/1.73 sq .m. Chronic Kidney Disease: Less than 60 mL/min/1.73 square meters End Stage Renal Disease: Les s than 15 mL/min/1.73 square meters Performed By: #### APTT, PRO #### [address] [address] GFR >60 Normal 0 [facility] ([place]) ([id number]) Comment: Result Comment: GFR Population mean for Afri can Lithuanian, Non- Americans Ages 20-29 = 116 mL/min/1.73 sq.m. Ages 30-39 = 107 mL/min/1.73 sq.m. Ages 40-49 = 99 mL/min/1.73 sq.m. Ages 50-59 = 93 mL/min/1.73 sq.m. Ages 60-69 = 85 mL/min/1.73 sq.m. Ages 70+ = 75 mL/min/1.73 sq .m. Chronic Kidney Disease: Less than 60 mL/min/1.73 square meters End Stage Renal Disease: Les s than 15 mL/min/1.73 square meters Performed By: #### APTT, PRO #### [address] [address] .auto diff on 09-20 Ammonia (P) [Mass/Vol] 0.60 0.09-1.40 10 3/mcL Normal 09-20- 020 [facility] ([place]) ([id number]) Comment: Performed By: #### CBC, ADIF F, ANEU, MG, BMP, GFR #### [place] [address] Basophils (Bld) 0.10 0.00-0.27 10 3/mcL Normal 09-21-2019 [facility] [#/Vol] [facility] ([place]) ([id number]) Comment: Performed By: #### CBC, ADIF F, ANEU, MG, BMP, GFR #### [address] [address] Basophils/100 WBC (Bld) 0.8 0.0-2.5 % Normal 2019 [facility] ([place]) (0000 0) Comment: Performed By: #### CBC, ADIF F, ANEU, MG, BMP, GFR #### [address] [address] Eosinophils (Bld) 0.10 0.00-0.65 10 3/mcL Normal 09-21-2019 [facility] [#/Vol] [facility] ([place]) ([id number]) Comment: Performed By: #### CBC, ADIF F, ANEU, MG, BMP, GFR #### [address] [address] Eosinophils/100 WBC (Bld) 2.1 0.0-6.0 % Normal 09-02 [facility] ([place]) (0000 0) Comment: Performed By: #### CBC, ADIF F, ANEU, MG, BMP, GFR #### [address] [address] Lymphocytes (Bld) 0.80 0.90-4.32 10 3/mcL Low 09-21-2019 [facility] [#/Vol] [facility] ([place]) ([id number]) Comment: Performed By: #### CBC, ADIF F, ANEU, MG, BMP, GFR #### [address] [address] Lymphocytes/100 WBC (Bld) 11.8 20.0-40.0 % Low 05- 0-2019 [facility] ([place]) (0000 0) Comment: Performed By: #### CBC, ADIF F, ANEU, MG, BMP, GFR #### [address] [address] Monocytes/100 WBC (Bld) 9.8 2.0-13.0 % Normal 2019 [facility] ([place]) (0000 0) Comment: Performed By: #### CBC, ADIF F, ANEU, MG, BMP, GFR #### [facility] [address] [place] [address] Neutrophils/100 WBC (Bld) 75.5 50.0-75.0 % High 09-02 0 [facility] ([place]) (0000 0) Comment: Performed By: #### CBC, ADIF F, ANEU, MG, BMP, GFR #### [facility] [address] [place] [address] tropi on 2019-09-20 Troponin I.cardiac 3.310 0.000-0.040 ng/mL High 0 [facility] [Mass/Vol] [facility] [place] ([id number]) Comment: Result Comment: Troponin I r eference ranges (01/09/14): 0.00-0.040 ng/mL Negative an d non-diagnostic. >0.040 ng/mL Consistent with cardiac damage, increased clinical risk and possibility of myocardial in farction. Serial measurements, a rise & fall in test results, clinical histo ry, appropriate symptoms and/or ECG changes may help assess possibility of ND. *Other non-acute coronary sy ndrome conditions such as CHF, myoc arditis, pulmonary emboli, sepsis and cardiac surgery could result in myoc ardial damage and increased troponi n levels. Performed By: #### TROPI ### # [facility] [address] [place] [address] progress on 2019-09 PROGRESS HNO ID: [id number] Normal 09-20-2019 [place] Author: Tiffany Morrison RN Clinic Service: ? [place] Author Type: ? (0000 0) Type: Progress Notes Filed: 09/20/2019 1:25 PM Note Text: COVID-19 Suspect PATIENT OUTREACH DAILY CALL Monitoring Call: Day 4 from symptom onset 09/17/19 Currently admitted to [facility]. Negative for covid per spouse (patient went to [facility] testin site) Aware that covid outreach is completed. advised to speak with or intensive care nurse prior to d ischarge so f/u appt can be made. Tawny, this is the [facility] calling, may I speak to Alexia Merida I'm calling you to check in and ensure your needs are being met. Can we discuss if you are getting better or worse and how we can work together to help you recover? Patient identified by name and NOTE TO CAREGIVER: ANSWER THE COVID-19 Caregiver Monitoring FLOWSHEET AND COVID Disposition QUESTIONS NOW OUTCOME: NOTE TO CAREGIVER: AFTER FLOWSHEET COMPLETION PLEASE PLACE D OT PHRASE: (COVIDCAREGIVEMONITORING) NOTE TO CAREGIVER: AFTER ?COVID Disposition? FLOWSHEET COMPL ETION PLEASE PLACE DOT PHRASE: (COVIDDISPO) Disposition: Admitted to outside hospital This is a stressful time for you and we want you to know you are supported. Would you like resources on how best to manage stress and an xiety during these times? No (Done) If you are worsening in any way please call your Primary Car e Provider right away. [facility] and NON [facility] patients may call: ? [facility] Nurse corporate vp advertising & online at [phone] ? Their PCP Office Caregivers may call: ? [facility] Employee Hotline: [phone] [facility] Employee Boost appointment for 24/11 emotional support: [phone] Patient verbalizes understanding of information provided. Dilles any further questions at this time. Please visit CDC.gov website for any updated information abo ut Coronavirus. You can also find information on the [facility] website. Additional information can be found on the CDC and [facility] web sites: https://www.cdc.gov/coronavirus/2019-nCoV/index.html [email or web address] SIGNATURE: Tiffany Morrison RN PATIENT NAME: Alexia Merida DATE: September 20, 2019 TIME: 1:09 PM pro on 2019-09-20 INR Coag (PPP) [Relative 1.1 ratio Normal 09-19 [facility] time] ([place]) (0000 0) Comment: Result Comment: The [employer] (CHEST, 1992, 102:312S-25S) recommended therapeutic rang e for oral anticoagulant therapy is: LOW RISK: Prophylaxis of manfred ous thrombosis INR: 2.0-3.0 Treatment of pulmonary embol ism 2.0-3.0 Prevention of systemic embol ism 2.0-3.0 HIGH RISK: Mechanical prosth etic valves 2.5-3.5 Performed By: #### APTT, PRO #### [place] [address] PT Coag (PPP) [Time] 13.0 9.0-14.6 seconds Normal 0 [facility] ([place]) ([id number]) Comment: Result Comment: Effective , Protime results may be affected by some antibiotics (i.e. Ciprofloxa joshua, Azithromycin, Bactrim) which may potentiate the action of oral anticoagu lants, with further increases in Protime/INR. Performed By: #### APTT, PRO #### [facility] [address] [place] [address] cnptoutreach on 0 CNPTOUTREACH Patient Outreach ([facility]) Normal 0 09-20-2019 [facility] ALEXIA MERIDA ([id number]) 1935 [facility] Date Time Provider Department ([id number]) 09/20/19 TIFFANY MORRISON (RN) [facility] During your visit today, we recorded the following informati on about you: Tiffany Morrison RN 09/20/2019 1:25 PM Addendum COVID-19 Suspect PATIENT OUTREACH DAILY CALL Monitoring Call: Day 4 from symptom onset 09/17/19 Currently admitted to [facility]. Negative for covid per spouse (patient went to [facility] testin site) Aware that covid outreach is completed. advised to speak with or intensive care nurse prior to discharge so f/u appt can be made. Tawny, this is the [facility] calling, may I speak t o Alexia Merida I'm calling you to check in and ensure your needs are being met. Can we discuss if you are getting better or worse and how we can work together to help you recover? Patient identified by name and NOTE TO CAREGIVER: ANSWER THE COVID-19 Caregiver Monitori ng FLOWSHEET AND COVID Disposition QUESTIONS NOW OUTCOME: NOTE TO CAREGIVER: AFTER FLOWSHEET COMPLETION PLEASE PLACE D OT PHRASE: (COVIDCAREGIVEMONITORING) NOTE TO CAREGIVER: AFTER ?COVID Disposit ion? FLOWSHEET COMPLETION PLEASE PLACE DOT PHRASE: (COVIDDISPO) Disposition: Admitted to outside hospital This is a stressful time for you and we want you to know y ou are supported. Would you like resources on how best to manage stress and anxiety during these times? No (Done) If you are worsening in any way please call your Prima ry Care Provider right away. [facility] and NON [facility] patients may call: ? [facility] Nurse corporate vp advertising & online at [phone] ? Their PCP Office Caregivers may call: ? [facility] Employee Hotline: [phone] [facility] Employee Boost appointment for 24/11 emotional support: Patient verbalizes understanding of information provid ed. Denies any further questions at this time. Please visit CDC.gov website for any updated information about Coronavirus. You can also find information on the [facility] website. Additional information can be found on [facility] and [facility] web sites: https://www.cdc.gov/coronavirus/2019-nCoV/index.html [email or web address] SIGNATURE: Tiffany Morrison RN PATIENT NAME: Alexia Merida DATE: September 20, 2019 TIME: 1:09 PM Allergies As of Date: 09/20/2019 Noted Allergy Reaction PENICILLINS 01/22/2005 2 - Rash 9 - Itching SULFA (SULFONAMIDE ANTIBIOTICS) 01/22/2005 2 - Rash 9 - Itching Date Reviewed: 09/17/2019 Reviewed by: Beena Pandya Ma - Fully Assessed Reason for Visit: covid19 follow up [Other] Cmt: per , admitted to [facility] and outside lab negative for covid Prescriptions as of 09/20/2019 Sig: ZOLPIDEM 5 MG TABLET Take 1 tablet by mouth at bed* ATORVASTATIN 40 MG TABLET Take 1 tablet by mouth once d* CARVEDILOL 6.25 MG TABLET Take 1 tablet by mouth twice * IPRATROPIUM BROMIDE 42 MCG (0* Use 2 Sprays in the nose thre * ALBUTEROL SULFATE HFA 90 MCG/* Inhale 1-2 Puffs as instructe * IPRATROPIUM 20 MCG-ALBUTEROL * Inhale 1 Puff as instructed. * APIXABAN 5 MG TABLET Take 1 tablet by mouth twice * MOMETASONE-FORMOTEROL HFA 200* Inhale as instructed twice da * FLUTICASONE PROPIONATE 50 MCG* Use 1-2 Sprays in each nostri * ASPIRIN 81 MG TABLET,DELAYED * Take 1 tablet by mouth once d * FUROSEMIDE 20 MG TABLET Take 1 tablet by mouth once d* LISINOPRIL 40 MG TABLET Take 1 tablet by mouth once d* Problem List As Of Date 09/20/2019 Noted Resolved CAD (coronary artery disease) [I25.10] 01/22/2005 More... 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 Pruritic disorder [L29.9] 03/23/2009 09/24/2010 Cardiomyopathy, ischemic [I25.5] 08/28/2009 COPD (Chronic Obstructive Pulmonary Disease) [J*10/17/2009 More... Atrial flutter [I48.92] 01/04/2010 12/29/2012 Atrial fibrillation [I48.91] 01/10/2010 Gastric ulcer, unspecified as acute or chronic,*11/12/2011 0 12/29/2012 Esophagitis, unspecified [K20.9] 11/12/2011 12/29/2012 Insomnia [G47.00] 06/30/2012 Occult GI bleeding [R19.5] 12/31/2012 01/10/2015 Nonspecific abnormal finding in stool contents *04/13/2014 1 06/14/2013 Colon polyps [K63.5] 01/10/2015 History of CVA (cerebrovascular accident) [Z86.*06/04/2017 More... History of basal cell carcinoma (BCC) of skin [*03/10/2018 More... Pleural plaque, left [J92.9] 10/29/2018 Encounter Status:Closed by TIFFANY MORRISON RN on 09/20/19 aptt on 2019-09-20 aPTT Coag (Bld) 29.5 25.0-35.0 seconds Normal 09-20-2019 [facility] [Time] [facility] ([place]) ([id number]) Comment: Result Comment: For Heparin anticoagulation therapy, the recommended therapeutic range is: 54-77 seconds (APTT Correlation with Anti-Xa therapeutic ran ge of 0.3-0.7 units/ml). PLEASE REFERENCE THE PHARMAC Y PROTOCOL FOR DOSING. Performed By: #### APTT, PRO #### [address] [address] aPTT Coag (Bld) [Time] None Normal 020 [facility] ([place]) ([id number]) Comment: Performed By: #### APTT, PRO #### [address] [address] progress on 2019-09 PROGRESS HNO ID: [id number] Normal 09-19-2019 [facility] Author: Davida Crawford) DONTE Johnson [place] ([id number]) Service: ? Author Type: Registered Nurse Type: Progress Notes Filed: 09/19/2019 3:43 PM Note Text: HIGH RISK CHRONIC DISEASE MONITORING Provider Action/FYI: Contact made with patient: Yes Patient identified by name and . Discussed care with patient Hi my name is Davida Johnson RN and I am calling from the [facility] on behalf of your PCP, Torin Noyola MD Because of the Covid-19 outbreak, I am calling to help make sure you are feeling wel l and that you have what you need to manage your well-being, since it is so important to stay home and take social distancing seriously to help prote ct your health at this time. If you have any health concerns, we will come up with a plan on how to proceed. SYMPTOMS: I'd like to ask some question about how you are managing you r health. Would that be OK? Yes Do you have any new or worsening symptoms that you'd like to discuss with a provider? No symptoms - Continue outreach/phone call ACTION TAKEN: No Symptoms - Continue phone call MEDICATIONS: Do you have any questions about taking your medication or wh ich medications you should be on? No Do you need any medication refills at this time, including a ny of the medications you might take only when needed? No ACTION TAKEN: No action required SOCIAL: We would like to make sure you have what you need so that yo ur basics needs are met - including your personal safety, food, housin g and medications. Would you like to speak with a social work team psychologist to help give you support for any of these needs? No It can be normal to feel anxious or down during a time like this. Would you like to talk to a mental health professional about how y ou have been feeling? No ACTION TAKEN: No action taken Thank you for taking the time to talk with me today. We want to work with you to ensure that we are keeping your medical conditions we ll-controlled and to keep you healthy and out of the doctor's office [facility]. Our team would like to stay connected with you to make sure you are feeling well. Our calls should take 10 minutes or less, and we'll pl an to call you weekly for the next few weeks to months while this outbreak continues to help make sure you stay well. Remember in the meantime, if y ou have concerns in between our calls, please call your PCP's office right away. Thank you. At present, these are our recommendations regarding the karan abdulirus (COVID-19) outbreak: ? Avoid public places as much as possible. ? Avoid close contact (within 6 feet) with others you don't live with, especially if they are sick. ? Stay home if you are sick. ? Wash your hands regularly for at least 20 seconds with soa p and water. ? Wear a cloth mask in public places to help reduce communit y spread. ? Do not go to your Doctor's office unless instructed to do so. For any non-emergency symptoms, call your Doctor's office to get ins tructions on how to manage (we might recommend a telephone or virtual vis it). For emergency symptoms, proceed to Emergency Department as usual but inform them of cough and fever symptoms MICHELL if present (or call on the way if possible). Enter next patient outreach date for the following week on t he same day of the week as today in the Track Pt Outreach section. PROGRESS HNO ID: [id number] Normal 09-19-2019 [facility] Author: Ilana Chua RN [place] ([id number]) Service: ? Author Type: ? Type: Progress Notes Filed: 09/19/2019 12:57 PM Note Text: [id number] Voice Message - Day 3 since symptom onset on 09-17-19. Hello, this is the [facility] calling. We are sorry we missed you, but your care is important to us . [facility] [place] [facility]. Please take a moment to complete the questionnaire daily. If any of your symptoms have worsened, please call you PCP o archieice to discuss. [facility] and NON [facility] patients may call: ? [facility] Nurse corporate vp advertising & online at [phone] ? Their PCP Office Caregivers may call: ? [facility] Employee Hotline: [phone] ? [facility] Employee Boost appointment for 24/11 emotional support: [phone] If you are finding it more difficult to breathe, or more dayana rt of breath when walking or climbing stairs, please go to the nearest ED . SIGNATURE: Ilana Chua RN PATIENT NAME: Alexia Merida DATE: September 19, 2019 TIME: 12:51 PM cnptoutreach on CNPTOUTREACH Patient Outreach (AMB BPA) Normal 09-19-2019 [facility] ALEXIA MERIDA ([id number]) 1935 [facility] Time Provider Department ([id number]) 09/19/19 ILANA CHUA (RN) AMB BPA During your visit today, we recorded the following informati on about you: Ilana Chua RN 09/19/2019 12:57 PM Signed [id number] Voice Message - Day 3 since symptom onset on 09-17-19. Tawny, this is the [facility] calling. We are sorry we missed you, but your care is important to us . We would like to follow up on your MyChart [place] [facility]. Please take a moment to complete the questionnaire daily. If any of your symptoms have worsened, please ca ll you PCP office to discuss. [facility] and NON [facility]CF patients may call: ? [facility] Nurse corporate vp advertising & online at [phone] ? Their PCP Office Caregivers may call: ? [facility] Employee Hotline: [phone] ? [facility] Employee Boost appointment for 24/11 emotional support: [phone] If you are finding it more difficult to breathe, or more short of breath when walking or climbing stairs, please go to the nearest ED. SIGNATURE: Ilana Chua RN PATIENT NAME: Alexia Merida DATE: September 19, 2019 TIME: 12:51 PM Allergies As of Date: 09/19/2019 Noted Allergy Reaction PENICILLINS 01/22/2005 2 - Rash 9 - Itching SULFA (SULFONAMIDE ANTIBIOTICS) 01/22/2005 2 - Rash 9 - Itching Date Reviewed: 09/17/2019 Reviewed by: Beena Pandya Ma - Fully Assessed Reason for Visit: Covid Follow Up [6784] Prescriptions as of 09/19/2019 Sig: ZOLPIDEM 5 MG TABLET Take 1 tablet by mouth at bed* ATORVASTATIN 40 MG TABLET Take 1 tablet by mouth once d* CARVEDILOL 6.25 MG TABLET Take 1 tablet by mouth twice * IPRATROPIUM BROMIDE 42 MCG (0* Use 2 Sprays in the nose thre * ALBUTEROL SULFATE HFA 90 MCG/* Inhale 1-2 Puffs as instructe * IPRATROPIUM 20 MCG-ALBUTEROL * Inhale 1 Puff as instructed. * APIXABAN 5 MG TABLET Take 1 tablet by mouth twice * MOMETASONE-FORMOTEROL HFA 200* Inhale as instructed twice da * FLUTICASONE PROPIONATE 50 MCG* Use 1-2 Sprays in each nostri * ASPIRIN 81 MG TABLET,DELAYED * Take 1 tablet by mouth once d * FUROSEMIDE 20 MG TABLET Take 1 tablet by mouth once d* LISINOPRIL 40 MG TABLET Take 1 tablet by mouth once d* Problem List As Of Date 09/19/2019 Noted Resolved CAD (coronary artery disease) [I25.10] 01/22/2005 More... 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 Pruritic disorder [L29.9] 03/23/2009 09/24/2010 Cardiomyopathy, ischemic [I25.5] 08/28/2009 COPD (Chronic Obstructive Pulmonary Disease) [J*10/17/2009 More... Atrial flutter [I48.92] 01/04/2010 12/29/2012 Atrial fibrillation [I48.91] 01/10/2010 Gastric ulcer, unspecified as acute or chronic,*11/12/2011 0 12/29/2012 Esophagitis, unspecified [K20.9] 11/12/2011 12/29/2012 Insomnia [G47.00] 06/30/2012 Occult GI bleeding [R19.5] 12/31/2012 01/10/2015 Nonspecific abnormal finding in stool contents *04/13/2014 1 06/14/2013 Colon polyps [K63.5] 01/10/2015 History of CVA (cerebrovascular accident) [Z86.*06/04/2017 More... History of basal cell carcinoma (BCC) of skin [*03/10/2018 More... Pleural plaque, left [J92.9] 10/29/2018 Encounter Status:Closed by ILANA CHUA RN on 09/19/19 CNPTOUTREACH Patient Outreach ([facility]) Normal 0 09-19-2019 [facility] ALEXIA MERIDA ([id number]) 1935 [facility] Date Time Provider Department ([id number]) 09/19/19 DAVIDA JOHNSON (RN) [facility] During your visit today, we recorded the following informati on about you: Davida Johnson RN, RN 09/19/2019 3:43 PM Signed HIGH RISK CHRONIC DISEASE MONITORING Provider Action/FYI: Contact made with patient: Yes Patient identified by name and . Discussed care with patient Hi my name is Davida Johnson RN and I am calling from the [facility] on behalf of your PCP, Torin Noyola MD Because of the Covid-19 outbreak, I am calling to help make sure you are feeling well and that you have what you need to manage your well-being, since it is so important to stay home and take social distancing seriously to help protect your healt h at this time. If you have any health concerns, we will come up with a plan on how to proceed. SYMPTOMS: I'd like to ask some question about how you are managing y our health. Would that be OK? Yes Do you have any new or worsening symptoms that you'd like to discuss with a provider? No symptoms - Continue outreach/phone call ACTION TAKEN: No Symptoms - Continue phone call MEDICATIONS: Do you have any questions ab out taking your medication or which medications you should be on? No Do you need any medication refills at this time, including a ny of the medications you might take only when needed? No ACTION TAKEN: No action required SOCIAL: We would like to make sure y ou have what you need so that your basics needs are met - including your personal safety, fo od, housing and medications. Would you like to speak with a social work team psychologist to help give you support for any of these needs? No It can be normal to feel anxious or down during a time lik e this. Would you like to talk to a mental health professional abo ut how you have been feeling? No ACTION TAKEN: No action taken Thank you for taking the time to talk with me to day. We want to work with you to ensure that we are keeping your medical conditions well-controlled and to keep you healthy and out of the doctor's office or steward health care system. Our team would like to stay connected with you to make sure you are f eeling well. Our calls should take 10 minutes or less, and we'l l plan to call you weekly for the next few weeks to months while this outbreak continues to h elp make sure you stay well. Remember in the meantime, if you have concerns in betw een our calls, please call your PCP's office right away. Thank you. At present, these are our recommendation s regarding the coronavirus (COVID-19) outbreak: ? Avoid public places as much as possible. ? Avoid close contact (within 6 feet) with others you don't live with, especially if they are sick. ? Stay home if you are sick. ? Wash your hands regularly for at least 20 seconds with soa p and water. ? Wear a cloth mask in public places to help reduce communit y spread. ? Do not go to your Doctor's office unless instructed to do so. For any non-emergency symptoms, call your Doctor's office to get instructions on how to manage (we might recommend a telephone or virtual visit). Fo r emergency symptoms, proceed to Emergen cy Department as usual but inform them of cough and fever symptoms MICHELL if present (or call on the way if philip le). Enter next patient outreach date for the following week on the same day of the week as today in the Track Pt Outreach section. Allergies As of Date: 09/19/2019 Noted Allergy Reaction PENICILLINS 01/22/2005 2 - Rash 9 - Itching SULFA (SULFONAMIDE ANTIBIOTICS) 01/22/2005 2 - Rash 9 - Itching Date Reviewed: 09/17/2019 Reviewed by: Beena Pandya Ma - Fully Assessed Reason for Visit: Community Monitoring Outreach [Other] Cmt: WEEK 1 Prescriptions as of 09/19/2019 Sig: ZOLPIDEM 5 MG TABLET Take 1 tablet by mouth at bed* ATORVASTATIN 40 MG TABLET Take 1 tablet by mouth once d* CARVEDILOL 6.25 MG TABLET Take 1 tablet by mouth twice * IPRATROPIUM BROMIDE 42 MCG (0* Use 2 Sprays in the nose thre * ALBUTEROL SULFATE HFA 90 MCG/* Inhale 1-2 Puffs as instructe * IPRATROPIUM 20 MCG-ALBUTEROL * Inhale 1 Puff as instructed. * APIXABAN 5 MG TABLET Take 1 tablet by mouth twice * MOMETASONE-FORMOTEROL HFA 200* Inhale as instructed twice da * FLUTICASONE PROPIONATE 50 MCG* Use 1-2 Sprays in each nostri * ASPIRIN 81 MG TABLET,DELAYED * Take 1 tablet by mouth once d * FUROSEMIDE 20 MG TABLET Take 1 tablet by mouth once d* LISINOPRIL 40 MG TABLET Take 1 tablet by mouth once d* Problem List As Of Date 09/19/2019 Noted Resolved CAD (coronary artery disease) [I25.10] 01/22/2005 More... 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 Pruritic disorder [L29.9] 03/23/2009 09/24/2010 Cardiomyopathy, ischemic [I25.5] 08/28/2009 COPD (Chronic Obstructive Pulmonary Disease) [J*10/17/2009 More... Atrial flutter [I48.92] 01/04/2010 12/29/2012 Atrial fibrillation [I48.91] 01/10/2010 Gastric ulcer, unspecified as acute or chronic,*11/12/2011 0 12/29/2012 Esophagitis, unspecified [K20.9] 11/12/2011 12/29/2012 Insomnia [G47.00] 06/30/2012 Occult GI bleeding [R19.5] 12/31/2012 01/10/2015 Nonspecific abnormal finding in stool contents *04/13/2014 1 06/14/2013 Colon polyps [K63.5] 01/10/2015 History of CVA (cerebrovascular accident) [Z86.*06/04/2017 More... History of basal cell carcinoma (BCC) of skin [*03/10/2018 More... Pleural plaque, left [J92.9] 10/29/2018 Encounter Status:Closed by DAVIDA JOHNSON on 09/19/19 progress on 2019-09 PROGRESS HNO ID: [id number] Normal 09-18-2019 [facility] Author: Cecilia Crawford) DONTE Olivo [place] Service: ? ([id number]) Author Type: Registered Nurse Type: Progress Notes Filed: 09/18/2019 2:17 PM Note Text: Summary: Both contact numbers would not accept calls from pr ivate number. Patient has covid test ordered. [id number] Voice Message Tawny, this is the [facility] calling. We are sorry we missed you, but your care is important to us . We would like to follow up on your MyChart [place] re sponse. Please take a moment to complete the questionnaire daily. If any of your symptoms have worsened, please call you PCP o ffice to discuss. [facility] and [facility] patients may call: ? [facility] Nurse corporate vp advertising & online at [phone] ? Their PCP Office Caregivers may call: ? [facility] Employee Hotline: [phone] ? [facility] Employee Boost appointment for 24/11 emotional support: [phone] If you are finding it more difficult to breathe, or more dayana rt of breath when walking or climbing stairs, please go to the nearest ED . SIGNATURE: Cecilia Olivo RN PATIENT NAME: Alexia Merida DATE: September 18, 2019 TIME: 2:14 PM coronavirus [ccl] o n 2019-09-18 COVID 19 Result BUTTON PUSHER Negative CORNEG Normal 09-18-2019 [facility] ( [id number]) Comment: Result Comment: Negative for COVID19 (SARS CoV2) by PCR. This test was developed and its performance characteristics determined by [facility] [place]. This test has bee n authorized by FDA under an Emergency Use Authorization (EUA). This test has been validated in accordance with the FDA's Guidance Document Policy for Diagnostics Test ing in Laboratories Certified to Perform High Complexity Testing under CLI A prior to Emergency use Authorization for Coronavirus Disease 2019 dur ing the Public Health Emergency issued on July 02, 2019. [facility] [address] [place] [address] Blake Lyles III, M.D. [id number] Performed By: #### [id number] ## ## [facility],[address] [place], [place] [id number] COVID 19 Source BUTTON PUSHER Nasopharyngeal Swab Normal 0 09-18-2019 [facility] ( [id number]) Comment: Performed By: #### [id number] ## ## [facility],[address] [place] [address] coronavirus 2019 on 2019-09-18 COVID 19 Result BUTTON PUSHER Negative for COVID19 Normal 09-18-2019 [facility] (SARS CoV2) by PCR. Reference Lab ([id number]) Comment: Result Comment: Negative for This test was developed and its performance characteristics determined by [facility]'s [facility] [place]. This test has been authorized by FDA under an Emergency Use Authorization (EUA). This test has been validated in accordance with the FDA's Guidance Document Policy for Diagnostics Testing in Laboratories Certified to Perform High Complexity Testing under CLIA prior to Emergency use Authorization for Coronavir us Disease 2019 during the Public Health Emergency issued on July 02, 2019. COVID19 (SARS This test was developed and its performance characteristics determined by [facility]'s [facility] [place]. This test has been authorized by FDA under an Emergency Use Authorization (EUA). This test has been validated in accordance with the FDA's Guidance Document Policy for Diagnostics Testing in Laboratories Certified to Perform High Complexity Testing under CLIA prior to Emergency use Authorization for Coronavir us Disease 2019 during the Public Health Emergency issued on July 02, 2019. CoV2) by PCR. This test was developed and its performance characteristics determined by [facility]'s [facility] [place]. This test has been authorized by FDA under an Emergency Use Authorization (EUA). This test has been validated in accordance with the FDA's Guidance Document Policy for Diagnostics Testing in Laboratories Certified to Perform High Complexity Testing under CLIA prior to Emergency use Authorization for Coronavir us Disease 2019 during the Public Health Emergency issued on July 02, 2019. COVID 19 Source BUTTON PUSHER BUTTON PUSHER Normal 09-18-2019 [facility] ([id number]) cnptoutreach on CNPTOUTREACH Patient Outreach (INTMMN) Normal 0 09-18-2019 [facility] ALEXIA MERIDA ([id number]) 1935 [place] Date Time Provider Department ([id number]) 09/18/19 CECILIA OLIVO (RN) INTMMN During your visit today, we recorded the following informati on about you: Cecilia Oliov RN, RN 09/18/2019 2:17 PM Signed [id number] Voice Message HelHiWired, this is the [facility] calling. We are sorry we missed you, but your care is important to us . We would like to follow up on your MyChart [place] yanet burris. Please take a moment to complete the questionnaire daily. If any of your symptoms have worsened, please ca ll you PCP office to discuss. [facility] and [facility] patients may call: ? [facility] Nurse corporate vp advertising & online at [phone] ? Their PCP Office Caregivers may call: ? [facility] Employee Hotline: [phone] ? [facility] Employee Boost appointment for 24/11 emotional support: [phone] If you are finding it more difficult to breathe, or more short of breath when walking or climbing stairs, please go to the nearest ED. SIGNATURE: Cecilia Olivo RN PATIENT NAME: Alexia Merida DATE: September 18, 2019 TIME: 2:14 PM Allergies As of Date: 09/18/2019 Noted Allergy Reaction PENICILLINS 01/22/2005 2 - Rash 9 - Itching SULFA (SULFONAMIDE ANTIBIOTICS) 01/22/2005 2 - Rash 9 - Itching Date Reviewed: 09/17/2019 Reviewed by: Beena Pandya Ma - Fully Assessed Reason for Visit: Covid Follow Up [4238] Cmt: covid follow up; test ordered Prescriptions as of 09/18/2019 Sig: ZOLPIDEM 5 MG TABLET Take 1 tablet by mouth at bed* ATORVASTATIN 40 MG TABLET Take 1 tablet by mouth once d* CARVEDILOL 6.25 MG TABLET Take 1 tablet by mouth twice * IPRATROPIUM BROMIDE 42 MCG (0* Use 2 Sprays in the nose thre * ALBUTEROL SULFATE HFA 90 MCG/* Inhale 1-2 Puffs as instructe * IPRATROPIUM 20 MCG-ALBUTEROL * Inhale 1 Puff as instructed. * APIXABAN 5 MG TABLET Take 1 tablet by mouth twice * MOMETASONE-FORMOTEROL HFA 200* Inhale as instructed twice da * FLUTICASONE PROPIONATE 50 MCG* Use 1-2 Sprays in each nostri * ASPIRIN 81 MG TABLET,DELAYED * Take 1 tablet by mouth once d * FUROSEMIDE 20 MG TABLET Take 1 tablet by mouth once d* LISINOPRIL 40 MG TABLET Take 1 tablet by mouth once d* Problem List As Of Date 09/18/2019 Noted Resolved CAD (coronary artery disease) [I25.10] 01/22/2005 More... 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 Pruritic disorder [L29.9] 03/23/2009 09/24/2010 Cardiomyopathy, ischemic [I25.5] 08/28/2009 COPD (Chronic Obstructive Pulmonary Disease) [J*10/17/2009 More... Atrial flutter [I48.92] 01/04/2010 12/29/2012 Atrial fibrillation [I48.91] 01/10/2010 Gastric ulcer, unspecified as acute or chronic,*11/12/2011 0 12/29/2012 Esophagitis, unspecified [K20.9] 11/12/2011 12/29/2012 Insomnia [G47.00] 06/30/2012 Occult GI bleeding [R19.5] 12/31/2012 01/10/2015 Nonspecific abnormal finding in stool contents *04/13/2014 1 06/14/2013 Colon polyps [K63.5] 01/10/2015 History of CVA (cerebrovascular accident) [Z86.*06/04/2017 More... History of basal cell carcinoma (BCC) of skin [*03/10/2018 More... Pleural plaque, left [J92.9] 10/29/2018 Encounter Status:Closed by CECILIA OLIVO on 09/18/19 progress on 2019-09 PROGRESS HNO ID: [id number] Normal 09-17-2019 [facility] Author: Nigel Coyle [place] ([id number]) Service: ? Author Type: Physician Type: Progress Notes Filed: 09/17/2019 4:20 PM Note Text: Patient presents with: Fever: x this am HPI: Feeling fever and chills today. His temp was 96 at the eye d octor's office this morning. His temp at home was up to 101. 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 FOR SLEEP - atorvastatin (LIPITOR) 40 mg tablet Take 1 tablet by mouth once daily. - carvedilol (COREG) 6.25 mg tablet Take 1 tablet by mouth t wice daily. - ipratropium bromide (ATROVENT) 42 mcg (0.06 %) nasal spray Use 2 Sprays in the nose three times daily. - albuterol HFA (VENTOLIN HFA) 90 mcg/actuation inhaler Inha le 1-2 Puffs as instructed every 4 hours as needed. - ipratropium-albuterol (COMBIVENT RESPIMAT) 20-100 mcg/actu ation mist Inhale 1 Puff as instructed. Inhale 1 puff once daily - apixaban (ELIQUIS) 5 mg tab(s) Take 1 tablet by mouth twic e daily. - mometasone-formoterol (DULERA) 200-5 mcg/actuation inhaler Inhale as instructed twice daily. - fluticasone (FLONASE) 50 mcg/actuation nasal spray Use 1-2 Sprays in each nostril once daily. Rinse mouth after use. Use once belia ly as needed. - aspirin, enteric coated (ADULT LOW DOSE ASPIRIN) 81 mg EC tablet Take 1 tablet by mouth once daily. - furosemide 20 mg tablet Take 1 tablet by mouth once daily. - lisinopril 40 mg ORAL tablet Take 1 tablet by mouth once d aily. No current facility-administered medications for this visit. ALLERGIES: ALLERGIES Allergen Reactions - Penicillins Rash, Itching - Sulfa (Sulfonamide * Rash, Itching VITALS: Pulse 66 Temp (!) 38.1 ?C (100.6 ?F) (Tympanic) Resp 16 Wt 91.6 kg (202 lb) SpO2 96% BMI 30.71 kg/m? PHYSICAL EXAM: GEN: Pleasant, in no acute distress. SKIN: Left lateral zygomatic arch has ~1cm abrasion/eschar ( denies dermatology treatment), has some similar lesions on the fore arms where treated. HEENT: PERRL, EOMI, conjunctiva clear Neck: supple, no thyromegaly, no lymphadenopathy HEART: fast rate around 100, irregularly irregular rhythm, n o murmurs LUNGS: clear to auscultation, no wheezes or crackles, no inc reased WOB, no coughing ASSESSMENT/PLAN: 1. Fever, unspecified fever cause - ICD9: 780.60, ICD10: R50 .9 Hx of CAD, COPD, and age 84 with fever and chills. Meets jacklyn baron for COVID-19 testing. Forwarded to screening pool for testing. Will contact him wi th more information. Nigel Coyle MD cnpn on 2019-09-17 CNPN Telephone (COVHLD) Normal 09-17-2019 [facility] ALEXIA MERIDA ([id number]) 1935 [facility] Date Time Provider Department ([id number]) 09/17/19 KAYLA CORMIER (RAUL) LIU During your visit today, we recorded the following informati on about you: Kayla Cormier APRN.CNP 09/17/2019 4:26 PM Signed Meets criteria for testing. COVID-19 trinidad t ordered. A member from the [facility] will be in contact with the patient to sc hedule testing. Please notify pt. Kayla Cormier APRN.RAUL PATIENT INSTRUCTIONS: At present, these are our recommendation s regarding the coronavirus (COVID-19) outbreak: - Wash your hands regularly for at least 20 seconds with soa p and water, especially before eating. - If soap/water are unavaila ble, use a hand veneer taping machine offbearer with at least 60% alcohol - Avoid touching your eyes, nose and mouth with unwashed farooq ds. - Avoid close contact (within 6 feet) with people who are si ck. - Stay home if you are feeling sick. - Cover your cough or sneeze with a tissue, then throw the tissue in the trash. - Standard household cleansers and wipes are effective in cl eaning and disinfecting frequently touched objects and surfaces. - Skip events that put you in contact with large groups of people (sporting events, concerts, theme bedolla, etc). - Avoid unnecessary domestic and international travel, including travel through large international airports. - If traveling, wipe down your airplane seat (and tray) wi th a disinfecting wipe. If you have a fever, cough or shortness of breat h, or are otherwise concerned you have COVID-19, we ask th at you do not come to any [facility] facility without calling your primary care physician or s peaking to a provider using a virtual visit using [facility]? Online. Y ou will be evaluated to determine if you require being seen in person or if you meet CDC guidelines for testing for C OVID-19 based on symptoms, travel and exposures. If you meet criteria for testing, your Express Care Online pr ovider or primary care physician will advise how to proceed with testing - CDC recommends wearing cloth face coverings in publi c settings where other social distancing measures are difficult to maintain (e.g., grocery stores and pharmacies) especially in areas of significant communi ty-based transmission. Cloth face coverings should: ? fit snugly but comfortably against the side of the face ? be secured with ties or ear loops ? include multiple layers of fabric ? allow for breathing without restriction ? be able to be laundered and machine dried with out damage or change to shape Cloth face coverings should not be placed on young children under age 2, anyone who has trouble breathing, o r is unconscious, incapacitated or otherwise unable to remove the mask without assistance. - There is no need to stop your immunosuppressive medicati ons preemptively. - If you become sick, please let your do ctor know, and discuss with them prior to stopping any medications. - At this point, we have no knowledge that patients on immun osuppressive medications are at higher risk of COVID-19 infection. - Most importantly, don't pa marvin. By following basic prevention measures such as hand hygiene and cover your cough, you a re helping to keep yourself and others healthy. Additional information can be found on [facility] and [facility] web sites: https://www.cdc.gov/coronavirus/2019-nCoV/index.html [email or web address] Allergies As of Date: 09/17/2019 Noted Allergy Reaction PENICILLINS 01/22/2005 2 - Rash 9 - Itching SULFA (SULFONAMIDE ANTIBIOTICS) 01/22/2005 2 - Rash 9 - Itching Date Reviewed: 09/17/2019 Reviewed by: Beena Pandya Ma - Fully Assessed Reason for Visit: Covid-19 Hotline [4401] Primary Visit Diagnosis:Suspected COVID-19 virus infection [ Z20.828] Order(s):2019 CORONAVIRUS [SQCOVID] Order #: [id number] [facility]19 HOME MONITORING [[id number]] Order #: [id number] Prescriptions as of 09/17/2019 Sig: ZOLPIDEM 5 MG TABLET Take 1 tablet by mouth at bed* ATORVASTATIN 40 MG TABLET Take 1 tablet by mouth once d* CARVEDILOL 6.25 MG TABLET Take 1 tablet by mouth twice * IPRATROPIUM BROMIDE 42 MCG (0* Use 2 Sprays in the nose thre * ALBUTEROL SULFATE HFA 90 MCG/* Inhale 1-2 Puffs as instructe * IPRATROPIUM 20 MCG-ALBUTEROL * Inhale 1 Puff as instructed. * APIXABAN 5 MG TABLET Take 1 tablet by mouth twice * MOMETASONE-FORMOTEROL HFA 200* Inhale as instructed twice da * FLUTICASONE PROPIONATE 50 MCG* Use 1-2 Sprays in each nostri * ASPIRIN 81 MG TABLET,DELAYED * Take 1 tablet by mouth once d * FUROSEMIDE 20 MG TABLET Take 1 tablet by mouth once d* LISINOPRIL 40 MG TABLET Take 1 tablet by mouth once d* Problem List As Of Date 09/17/2019 Noted Resolved CAD (coronary artery disease) [I25.10] 01/22/2005 More... 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 Pruritic disorder [L29.9] 03/23/2009 09/24/2010 Cardiomyopathy, ischemic [I25.5] 08/28/2009 COPD (Chronic Obstructive Pulmonary Disease) [J*10/17/2009 More... Atrial flutter [I48.92] 01/04/2010 12/29/2012 Atrial fibrillation [I48.91] 01/10/2010 Gastric ulcer, unspecified as acute or chronic,*11/12/2011 0 12/29/2012 Esophagitis, unspecified [K20.9] 11/12/2011 12/29/2012 Insomnia [G47.00] 06/30/2012 Occult GI bleeding [R19.5] 12/31/2012 01/10/2015 Nonspecific abnormal finding in stool contents *04/13/2014 1 06/14/2013 Colon polyps [K63.5] 01/10/2015 History of CVA (cerebrovascular accident) [Z86.*06/04/2017 More... History of basal cell carcinoma (BCC) of skin [*03/10/2018 More... Pleural plaque, left [J92.9] 10/29/2018 Encounter Status:Closed by KAYLA CORMIER CNP on 0 cnov on 2019-09-17 CNOV Office Visit (UCTR) Normal 09-17-19 20 [facility] ALEXIA MERIDA ([id number]) 1935 [place] Date Time Provider Department ([id number]) 09/17/19 3:45 PM [facility] During your visit today, we recorded the following informati on about you: Temperature Pulse Respiration Weight 100.6 degrees 66/minute 16/minute 91.6 kg Nigel Coyle MD 09/17/2019 4:20 PM Signed Patient presents with: Fever: x this am HPI: Feeling fever and chills today. His temp was 96 at the [facility] office this morning. His temp at home was up to 101. 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 FOR SLEEP - atorvastatin (LIPITOR) 40 mg tablet Take 1 tablet by mouth once daily. - carvedilol (COREG) 6.25 mg tablet Take 1 tablet by mouth t wice daily. - ipratropium bromide (ATROVENT) 42 mcg (0.06 %) nasal spray Use 2 Sprays in the nose three times daily. - albuterol HFA (VENTOLIN HFA) 90 mcg/actuation inhaler In albarran 1-2 Puffs as instructed every 4 hours as needed. - ipratropium-albuterol (COM BIVENT RESPIMAT) 20-100 mcg/actuation mist Inhale 1 Puff as instructed. Inhale 1 puff once daily - apixaban (ELIQUIS) 5 mg tab(s) Take 1 tablet by mouth twic e daily. - mometasone-formoterol (DULERA) 200-5 mcg/actuation inhaler Inhale as instructed twice daily. - fluticasone (FLONASE) 50 mcg/actuation nasal spray Use 1 -2 Sprays in each nostril once daily. Rinse mouth after use. Use once daily as needed. - aspirin, enteric coated (ADULT LOW DOSE ASPIRIN) 81 mg EC tablet Take 1 tablet by mouth once daily. - furosemide 20 mg tablet Take 1 tablet by mouth once daily. - lisinopril 40 mg ORAL tablet Take 1 tablet by mouth once d aily. No current facility-administered medications for this visit. ALLERGIES: ALLERGIES Allergen Reactions - Penicillins Rash, Itching - Sulfa (Sulfonamide * Rash, Itching VITALS: Pulse 66 Temp (!) 38.1 ?C (100.6 ?F) (Tympanic) Resp 16 Wt 91.6 kg (202 lb) SpO2 96% BMI 30.71 kg/m? PHYSICAL EXAM: GEN: Pleasant, in no acute distress. SKIN: Left lateral zygomatic arch has ~1cm abrasion/eschar ( denies dermatology treatment), has some similar lesions on the forearms where treated. HEENT: PERRL, EOMI, conjunctiva clear Neck: supple, no thyromegaly, no lymphadenopathy HEART: fast rate around 100, irregularly irregular rhythm, n o murmurs LUNGS: clear to auscultation, no wheezes or crackles, no inc reased WOB, no coughing ASSESSMENT/PLAN: 1. Fever, unspecified fever cause - ICD9: 780.60, ICD10: R50 .9 Hx of CAD, COPD, and age 84 with fever a nd chills. Meets criteria for COVID-19 testing. Forwarded to screening pool for testing. Will contact him wi th more information. Nigel Coyle MD Referring Provider: SELF [[id number]] Allergies As of Date: 09/17/2019 Noted Allergy Reaction PENICILLINS 01/22/2005 2 - Rash 9 - Itching SULFA (SULFONAMIDE ANTIBIOTICS) 01/22/2005 2 - Rash 9 - Itching Date Reviewed: 09/17/2019 Reviewed by: Beena Pandya Ma - Fully Assessed Reason for Visit: Fever [47] Cmt: x this am Primary Visit Diagnosis:Fever, unspecified fever cause [R50. 9] Prescriptions as of 09/17/2019 Sig: ZOLPIDEM 5 MG TABLET Take 1 tablet by mouth at bed* ATORVASTATIN 40 MG TABLET Take 1 tablet by mouth once d* CARVEDILOL 6.25 MG TABLET Take 1 tablet by mouth twice * IPRATROPIUM BROMIDE 42 MCG (0* Use 2 Sprays in the nose thre * ALBUTEROL SULFATE HFA 90 MCG/* Inhale 1-2 Puffs as instructe * IPRATROPIUM 20 MCG-ALBUTEROL * Inhale 1 Puff as instructed. * APIXABAN 5 MG TABLET Take 1 tablet by mouth twice * MOMETASONE-FORMOTEROL HFA 200* Inhale as instructed twice da * FLUTICASONE PROPIONATE 50 MCG* Use 1-2 Sprays in each nostri * ASPIRIN 81 MG TABLET,DELAYED * Take 1 tablet by mouth once d * FUROSEMIDE 20 MG TABLET Take 1 tablet by mouth once d* LISINOPRIL 40 MG TABLET Take 1 tablet by mouth once d* Problem List As Of Date 09/17/2019 Noted Resolved CAD (coronary artery disease) [I25.10] 01/22/2005 More... 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 Pruritic disorder [L29.9] 03/23/2009 09/24/2010 Cardiomyopathy, ischemic [I25.5] 08/28/2009 COPD (Chronic Obstructive Pulmonary Disease) [J*10/17/2009 More... Atrial flutter [I48.92] 01/04/2010 12/29/2012 Atrial fibrillation [I48.91] 01/10/2010 Gastric ulcer, unspecified as acute or chronic,*11/12/2011 0 12/29/2012 Esophagitis, unspecified [K20.9] 11/12/2011 12/29/2012 Insomnia [G47.00] 06/30/2012 Occult GI bleeding [R19.5] 12/31/2012 01/10/2015 Nonspecific abnormal finding in stool contents *04/13/2014 1 06/14/2013 Colon polyps [K63.5] 01/10/2015 History of CVA (cerebrovascular accident) [Z86.*06/04/2017 More... History of basal cell carcinoma (BCC) of skin [*03/10/2018 More... Pleural plaque, left [J92.9] 10/29/2018 Encounter Status:Closed by NIGEL COYLE MD on 09/17/19 progress on 2019-08 PROGRESS HNO ID: [id number] Normal 08-29-2019 [facility] Author: More (Lard Maker) [facility] ([id number]) Service: ? Author Type: Nurse Practitioner Type: Progress Notes Filed: 08/29/2019 9:04 AM Note Text: This Team Access Model visit is a phone encounter. It requir ed patient-provider interaction for the medical decision making as documented below. Patient agrees to the visit: Yes Patient Location: [place] CC: Patient presents with: Follow Up: abdominal pain, diverticulitis HPI Alexia Merida is a 83 year old male who is contacted today for a phone visit. This is an established patient of Dr. Torin lacey MD. Patient was seen in the office on 08/24 for LLQ abdominal dis comfort and constipation. CT abd/pelvis showed mild diverticulitis. He w as started on Cipro and Flagyl. Today patient reports abdominal pain has c ompletely resolved. Denies any new or worsening symptoms including fev er, chills, black/bloody stools, nausea, vomiting, diarrhea. He took one dose of Miralax for the constipation and it has resolved as well. De nies any concerns or issues today. ASSESSMENT/PLAN: 1. Diverticulitis - ICD9: 562.11, ICD10: K57.92 (primary megan gnosis) Abdominal pain resolved. Tolerating antibiotics. Feeling jamie lly well overall. Recommend referral to GI for diverticulitis and con stipation. Advised patient he may need colonoscopy due to change in bow el habit and first episode of diverticulitis to rule out serious cause anand ch as colon cancer. He declined referral for now, states he will discuss at next routine follow-up with PCP. 2. Constipation, unspecified constipation type - ICD9: 564.0 0, ICD10: K59.00 Resolved with Miralax. Take daily as needed. Follow-up for p ersistent or severe constipation, see above progress on 2019-08 PROGRESS HNO ID: [id number] Normal 08-25-2019 [facility] Author: Juana (Tech) Erik Nguyen [facility] ([id number]) Service: ? Author Type: Short Haul Driver Type: Progress Notes Filed: 08/25/2019 3:38 PM Note Text: Radiology Service Progress Note DATE OF SERVICE: August 25, 2019 TIME: 3:37 PM PATIENT IDENTITY VERIFICATION COMPLETED USING TWO (2) [address] RD IDENTIFIERS: Name and Date of confirmed by patient cruz perrin. PATIENT GENDER DATA: Male PATIENT RELEVANT IMPLANT DATA REVIEWED: Yes ALLERGIES: Reviewed and unchanged CONTRAST ALLERGY: NO. EXAM: CT -CONTRAST INDUCED NEPHROPATHY RISK FACTORS: Patient age > 60 years CREATININE: Creatinine Date Value Ref Range Status 08/25/2019 0.95 0.73 - 1.22 mg/dL Final 03/17/2018 1.02 0.73 - 1.22 mg/dL Final 11/10/2017 1.08 0.73 - 1.22 mg/dL Final eGFR-All Other Races Date Value Ref Range Status 08/25/2019 >60 . Final Comment: eGFR (Estimated GFR) Units of measure: mL/min/1.73 meters sq uared eGFR is derived from the reexpressed MDRD Study equation rosey payton the following parameters: serum creatinine, age, gender and race. The crea tinine assay has been calibrated to be traceable to IDMS. An eGFR <60 mL/min/1.73m2 for >3 months is consistent with c hronic kidney disease. Refer to KDOQI guidelines for clinical interpretati on. In patients with unstable renal function, e.g. those with ac akhiok kidney injury, the eGFR may not accurately reflect actual GFR. eGFR- Date Value Ref Range Status 08/25/2019 >60 Final P.O.C.T. RESULTS: POC done: Yes, See Lab Tab August 25, 2019 TREATMENT: N/A PERIPHERAL IV DATA: Ambulatory: A peripheral IV was started in the Left antecubital site with a Angio cath: 22 gauge. RADIOLOGY DEPARTMENT: CT; Exam(s) Completed: Abdomen/Pelvis SIGNATURE: Evelina Melchor PATIENT NAME: Alexia Merida DATE: August 25, 2019 TIME: 3:37 PM PROGRESS HNO ID: [id number] Normal 08-25-2019 [facility] Author: More Strickland) [facility] ([id number]) Service: ? Author Type: Nurse Practitioner Type: Progress Notes Filed: 08/25/2019 10:24 AM Note Text: This Team Access Model visit is a same day encounter. It req uired patient-provider interaction for the medical decision making as documented below. CC Patient presents with: Abdominal Pain HPI Alexia Merida is a 83 year old male who presents with abdo gato pain for for a few days. Location: LLQ without radiation Described as: constant ache Aggravating factors: movement Alleviating factors: at the end of a bowel movement Associated symptoms: bloating. Patient also reports chronic constipation for the past 6 to 8 months. Stools are usually large, hard a nd has to strain with every BM. Typically has a BM every 1 to 2 days, takes laxatives as needed. Feels that he gets plenty of fiber in h is diet and thinks his fluid intake is adequate. Has not been very activ e lately with COVID pandemic Denies: blood in stools or black stools, diarrhea, heart bur n, nausea, vomiting, excessive belching GI history: GERD and diverticulosis. Surgeries: cholecystect rafy. Endoscopy: 2010- colonoscopy which was normal except for div erticulosis REVIEW OF SYSTEMS General: denies dizziness, lightheadedness, weight loss, fev er, chills, night sweats, syncope CV: denies chest pain, palpitations, edema Resp: denies SOB, cough, wheezing : denies dysuria, urgency, frequency, hesitancy, hematuria , dark/concentrated urine, decreased urine output or history o f kidney stones PAST MEDICAL HISTORY Diagnosis Date - Actinic keratosis 2008 - Atrial fibrillation (HCC) 01/10/2010 - Atrial flutter (HCC) 01/04/2010 - CAD (coronary artery disease) 01/22/2005 Ruben Nash MD. [facility]. 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 10/04/2007 - Unspecified cardiovascular disease PAST SURGICAL HISTORY Procedure Laterality Date - COLONOSCOP W/ OR W/O [facility] SPEC 06/12/10 - COLONOSCOP W/ OR W/O [facility] SPEC 06/26/2014 Colonoscopy - DESTR LESION BENIGN/PREMAL 06/10/06 SKs ablated x 4 - EGD W/O [facility] SPECIMEN W/BX 11/07/11 - EGD W/O OR W/BRUSH/WASH 04/13/14 EGD - HEART SURGERY HX 01/2004 Triple bypass - INSERT/REPL DEFIB LEAD/GENER OTHR 08/22/2008 AICD - LAPAROSCOPIC CHOLEYCYSTECTOMY 1976 Cholecystectomy, lap - TRANSCATH STENT ADDN VESSEL,PERCUT 04/05/2013 Proximal RCA Promus MATTHEW ALLERGIES Penicillins; Sulfa (Sulfonamide Antibiotics) MEDICATIONS zolpidem (AMBIEN) 5 mg tablet Take 1 tablet by mouth at bedt michelle as needed for Sedation for up to 180 days. FOR SLEEP atorvastatin (LIPITOR) 40 mg tablet Take 1 tablet by mouth o nce daily. carvedilol (COREG) 6.25 mg tablet Take 1 tablet by mouth twi ce daily. ipratropium bromide (ATROVENT) 42 mcg (0.06 %) nasal spray U se 2 Sprays in the nose three times daily. albuterol HFA (VENTOLIN HFA) 90 mcg/actuation inhaler Inhale 1-2 Puffs as instructed every 4 hours as needed. ipratropium-albuterol (COMBIVENT RESPIMAT) 20-100 mcg/actuat ion mist Inhale 1 Puff as instructed. Inhale 1 puff once daily apixaban (ELIQUIS) 5 mg tab(s) Take 1 tablet by mouth twice daily. mometasone-formoterol (DULERA) 200-5 mcg/actuation inhaler I nhale as instructed twice daily. fluticasone (FLONASE) 50 mcg/actuation nasal spray Use 1-2 S prays in each nostril once daily. Rinse mouth after use. Use once daily as needed. aspirin, enteric coated (ADULT LOW DOSE ASPIRIN) 81 mg EC ta blet Take 1 tablet by mouth once daily. furosemide 20 mg tablet Take 1 tablet by mouth once daily. lisinopril 40 mg ORAL tablet Take 1 tablet by mouth once belia ly. FAMILY HISTORY Problem Relation Age of Onset - Heart Mother - Prostate Cancer Brother Social History Tobacco Use - Smoking status: Former Smoker Packs/day: 1.00 Years: 15.00 Pack years: 15.00 Types: Cigarettes Last attempt to quit: 05/04/1974 Years since quittin.3 - Smokeless tobacco: Never Used - Tobacco comment: Quit 1974 Substance Use Topics - Alcohol use: Yes Alcohol/week: 5.0 standard drinks Types: 2 Cans of Beer (12oz) per week Frequency: 2-4 times a month Drinks per session: 1 or 2 Binge frequency: Never - Drug use: No PHYSICAL EXAM BP 138/90 Pulse 68 Temp 36.4 ?C (97.6 ?F) (Temporal) R manny 16 Wt 91.2 kg (201 lb) SpO2 97% BMI 30.56 kg/m? General Appearance: in no acute distress, alert, appears unc omfortable Lungs: lungs clear to auscultation. No wheezing, rhonchi, ra les Heart: RRR without murmur, gallop, or rubs. No ectopy Abdomen: Soft, round, non-distended. marked left lower quadr ant abdominal tenderness with palpation. No guarding or rebound tenderness . Bowel sounds hyperactive LLQ, otherwise normal. No masses, organom egaly. CVA tenderness absent ASSESSMENT/PLAN: 1. Left lower quadrant abdominal pain - ICD9: 789.04, ICD10: R10.32 (primary diagnosis) Constipation vs diverticulitis. No alarm symptoms or exam fi ndings. - Stat CT ABD/PEL W IVCON - Follow-up and treatment pending results 2. Constipation, unspecified constipation type - ICD9: 564.0 0, ICD10: K59.00 Chronic for the past 6 months. Chronic opioid use for back p ain contributing factor. Needs daily stool softener, recommend M iralax. Also discussed non-medication treatment measures. Do not start Mi ralax until notified. Follow-up with GI, patient was to have colonoscopy but never scheduled. Constipation is new, needs further work-up 3. Encounter for medication monitoring - ICD9: V58.83, ICD10 : Z51.81 - CREATININE BLD due to evaluate kidney function for IV cont rast Prescription instructions reviewed with patient as applicabl e. Potential red flag symptoms discussed with the patient. Reviewed appro priate action plan to take if red flag symptoms occur. Patient agreeable t o treatment plan. More Mann, LISA.NUTRITION REPRESENTATIVE ct abd/pel w ivcon on 2019-08-25 CT ABD/PEL W * * *Final Report* * * Normal 08-03 [facility] IVCON DATE OF EXAM: Aug 25 2019 3:33PM [place] ([id number]) [facility] 0530 - CT ABD/PEL W IVCON / PROCEDURE REASON: Left lower quadrant abdominal pain * * * * Physician Interpretation * * * * EXAMINATION: CT ABDOMEN AND PELVIS WITH IV CONTRAST CLINICAL HISTORY: Abd pain, diverticulitis suspected TECHNIQUE: Routine helical scanning of the abdomen and pelvi s with IV contrast. Contrast: IV: 150 ml Omnipaque 300 Oral: None. CT Radiation dose: Integrated Dose-length product (DLP) for this visit = 705 mGy*cm. CT Dose Reduction Employed: Automated exposure control. COMPARISON: 10/09/2018 chest x-ray RESULT: Lower chest: Cardiomegaly with dilated left ventricle and at rium. Loculated organized left posterior pleural fluid collection with associated scattered internal and mural calcifications. Incl uded right lung base is clear. AICD in place. Peritoneum/mesentery: There is no free intraperitoneal air o r significant free fluid. Liver: Fatty infiltration. No mass. Biliary: Cholecystectomy. No dilated bile ducts. Spleen: Calcified granulomata. Pancreas: Normal. Kidneys/urinary: Nonobstructing 7 mm stone in the left renal collecting system. No hydronephrosis or mass. Small focus of cortical thinning/scarring at the lower pole of left kidney. Right kidney negative for stones, obstruction or mass. Adrenals: Normal. GI tract: Moderate diverticulosis along the sigmoid colon. T here is associated mild blurring of the serosal margins along the an terior aspect of the proximal sigmoid colon suggesting mild diverticulitis . No dilated bowel. Appendix is not visualized. Lymph nodes: No adenopathy. Vasculature: Mild atherosclerotic changes. Pelvis: No pelvic mass or fluid collection. Small bilateral fat-containing inguinal hernias. Bones/soft tissue: Degenerative changes at multiple lumbar d isc levels. IMPRESSION: 1. Colonic diverticulosis with suggestion of mild acute dive rticulitis along the proximal sigmoid colon. 2. Nonobstructing left nephrolithiasis. 3. Fatty infiltration of liver. 4. Dilated left cardiac atrium and ventricle. 5. Organized chronic loculated left posterior pleural fluid collection. Roll Plugger Machine Operator: PSCB Transcribe Date/Time: Aug 25 2019 3:36P Dictated by : MARSHA RIOS MD This examination was interpreted and the report reviewed and electronically signed by: MARSHA RIOS MD on Aug 25 2019 3:52PM EST [id number] creatinine on 08-24 Creatinine [Mass/Vol] 0.95 0.73-1.22 mg/dL Normal 08-25-19 [facility] ([id number]) Creatinine [Mass/Vol] >60 Normal 08-25-19 [facility] ([id number]) Comment: Result Comment: eGFR (Estima zhen GFR) Units of measure: mL/min/1.73 meters squared eGFR is derived from the ree xpressed MDRD Study equation using the following parameters: serum creatinine, age, gender and race. The creatinine assay has been calibrated to be traceable to IDMS. An eGFR <60 mL/min/1.73m2 fo r >3 months is consistent with chronic kidney disease. Refer to KDOQI guidelines for clinical interpretation. In patients with unstable re nal function, e.g. those with acute kidney injury, the eGFR may not accurately reflect actual GFR. cnpn on 2019-08-25 CNPN Telephone (INTMWS) Normal 08-25-2019 [facility] MAGNOLIAALEXIA Paul ([id number]) 1935 [facility] Date Time Provider Department ([id number]) 08/25/19 TORIN NOYOLA INTMWS During your visit today, we recorded the following informati on about you: Carole Chua RN 08/25/2019 9:29 AM Signed Pt called, verified by name and birthdate. Pt states chandan miller has had ongoing left lower abd pain for 3 days. Pt denies n/v /d, denies fever. Offered to make pt a virtual/phone visit today and pt became agitated. Pt r efused apt and hung up phone. Carole Chua RN Allergies As of Date: 08/25/2019 Noted Allergy Reaction PENICILLINS 01/22/2005 2 - Rash 9 - Itching SULFA (SULFONAMIDE ANTIBIOTICS) 01/22/2005 2 - Rash 9 - Itching Date Reviewed: 08/25/2019 Reviewed by: Juana ([employer]) Evelina Sevilla - Fully Asse ssed Reason for Visit: FYI-No Action Needed [265] Reason For Visit History Recorded Prescriptions as of 08/25/2019 Sig: IV CONTRAST (RADIOLOGY PROCED* CT ABD/PEL -Inject, intraveno * ENTERIC CONTRAST (RADIOLOGY P* For CT ABD/PEL W IVCON Routin * ZOLPIDEM 5 MG TABLET Take 1 tablet by mouth at bed* ATORVASTATIN 40 MG TABLET Take 1 tablet by mouth once d* CARVEDILOL 6.25 MG TABLET Take 1 tablet by mouth twice * IPRATROPIUM BROMIDE 42 MCG (0* Use 2 Sprays in the nose thre * ALBUTEROL SULFATE HFA 90 MCG/* Inhale 1-2 Puffs as instructe * IPRATROPIUM 20 MCG-ALBUTEROL * Inhale 1 Puff as instructed. * APIXABAN 5 MG TABLET Take 1 tablet by mouth twice * MOMETASONE-FORMOTEROL HFA 200* Inhale as instructed twice da * FLUTICASONE PROPIONATE 50 MCG* Use 1-2 Sprays in each nostri * ASPIRIN 81 MG TABLET,DELAYED * Take 1 tablet by mouth once d * FUROSEMIDE 20 MG TABLET Take 1 tablet by mouth once d* LISINOPRIL 40 MG TABLET Take 1 tablet by mouth once d* Problem List As Of Date 08/25/2019 Noted Resolved CAD (coronary artery disease) [I25.10] 01/22/2005 More... 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 Pruritic disorder [L29.9] 03/23/2009 09/24/2010 Cardiomyopathy, ischemic [I25.5] 08/28/2009 COPD (Chronic Obstructive Pulmonary Disease) [J*10/17/2009 More... Atrial flutter [I48.92] 01/04/2010 12/29/2012 Atrial fibrillation [I48.91] 01/10/2010 Gastric ulcer, unspecified as acute or chronic,*11/12/2011 0 12/29/2012 Esophagitis, unspecified [K20.9] 11/12/2011 12/29/2012 Insomnia [G47.00] 06/30/2012 Occult GI bleeding [R19.5] 12/31/2012 01/10/2015 Nonspecific abnormal finding in stool contents *04/13/2014 1 06/14/2013 Colon polyps [K63.5] 01/10/2015 History of CVA (cerebrovascular accident) [Z86.*06/04/2017 More... History of basal cell carcinoma (BCC) of skin [*03/10/2018 More... Pleural plaque, left [J92.9] 10/29/2018 Encounter Status:Closed by PATIENCE CAMPBELL LPN on 09/22/19 CNPN Telephone (INTWS) Normal 08-25-2019 [facility] ALEXIA MERIDA ([id number]) 1935 [place] Date Time Provider Department ([id number]) 08/25/19 MORE MANN (RAUL) INTMWS During your visit today, we recorded the following informati on about you: More Mann APRN.CNP 08/25/2019 3:57 PM Signed Please let the patient know the CT scan showed diverticuli tis, we discussed this possibility during today's office v isit. Start antibiotics as prescribed. Also recommend daily Miralax over the counter for constipati on. Schedule virtual/phone follow-up on Thursday. GALO Zavala [facility] 08/25/2019 4:17 PM Signed Patient is notified of all information and verbalizes unders tanding Patient would like antibiotics to [facility]. Allergies As of Date: 08/25/2019 Noted Allergy Reaction PENICILLINS 01/22/2005 2 - Rash 9 - Itching SULFA (SULFONAMIDE ANTIBIOTICS) 01/22/2005 2 - Rash 9 - Itching Date Reviewed: 08/25/2019 Reviewed by: Juana ([employer]) Evelina Sevilla - Fully Asspaul locke Reason for Visit: Results [95] Order(s):ciprofloxacin HCl (CIPRO) 500 mg tabletTake 1 tablet by mouth twice daily for 10 days.Disp: 20 tabletRfl: 0 metroNIDAZOLE (FLAGYL) 500 mg tabletTake 1 tablet by mouth t hree times daily for 7 days.Disp: 21 tabletRfl: 0 Prescriptions as of 08/25/2019 Sig: IV CONTRAST (RADIOLOGY PROCED* CT ABD/PEL -Inject, intraveno * ENTERIC CONTRAST (RADIOLOGY P* For CT ABD/PEL W IVCON Routin * CIPROFLOXACIN 500 MG TABLET Take 1 tablet by mouth twice * METRONIDAZOLE 500 MG TABLET Take 1 tablet by mouth three * ZOLPIDEM 5 MG TABLET Take 1 tablet by mouth at bed* ATORVASTATIN 40 MG TABLET Take 1 tablet by mouth once d* CARVEDILOL 6.25 MG TABLET Take 1 tablet by mouth twice * IPRATROPIUM BROMIDE 42 MCG (0* Use 2 Sprays in the nose thre * ALBUTEROL SULFATE HFA 90 MCG/* Inhale 1-2 Puffs as instructe * IPRATROPIUM 20 MCG-ALBUTEROL * Inhale 1 Puff as instructed. * APIXABAN 5 MG TABLET Take 1 tablet by mouth twice * MOMETASONE-FORMOTEROL HFA 200* Inhale as instructed twice da * FLUTICASONE PROPIONATE 50 MCG* Use 1-2 Sprays in each nostri * ASPIRIN 81 MG TABLET,DELAYED * Take 1 tablet by mouth once d * FUROSEMIDE 20 MG TABLET Take 1 tablet by mouth once d* LISINOPRIL 40 MG TABLET Take 1 tablet by mouth once d* Problem List As Of Date 08/25/2019 Noted Resolved CAD (coronary artery disease) [I25.10] 01/22/2005 More... 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 Pruritic disorder [L29.9] 03/23/2009 09/24/2010 Cardiomyopathy, ischemic [I25.5] 08/28/2009 COPD (Chronic Obstructive Pulmonary Disease) [J*10/17/2009 More... Atrial flutter [I48.92] 01/04/2010 12/29/2012 Atrial fibrillation [I48.91] 01/10/2010 Gastric ulcer, unspecified as acute or chronic,*11/12/2011 0 12/29/2012 Esophagitis, unspecified [K20.9] 11/12/2011 12/29/2012 Insomnia [G47.00] 06/30/2012 Occult GI bleeding [R19.5] 12/31/2012 01/10/2015 Nonspecific abnormal finding in stool contents *04/13/2014 1 06/14/2013 Colon polyps [K63.5] 01/10/2015 History of CVA (cerebrovascular accident) [Z86.*06/04/2017 More... History of basal cell carcinoma (BCC) of skin [*03/10/2018 More... Pleural plaque, left [J92.9] 10/29/2018 Prescriptions ordered this encounter Disp Refills Start End CIPROFLOXACIN 500 MG TABLET 20 t* 0 08/25/2019 09/04/2019 Route: ORAL Sig: Take 1 tablet by mouth twice daily for 10 days. METRONIDAZOLE 500 MG TABLET 21 t* 0 08/25/2019 09/01/2019 Route: ORAL Sig: Take 1 tablet by mouth three times daily for 7 days. Encounter Status:Closed by MROE MANN CNP on 08/25/19 cnov on 2019-08-25 CNOV Office Visit (INTMWS) Normal 08-25-[address] [place] [address] [facility] ALEXIA MERIDA ([id number]) 1935 [place] Date Time Provider Department ([id number]) 08/25/19 10:40 AM MORE MANN (RAUL) INTMWS During your visit today, we recorded the following informati on about you: Temperature Pulse Respiration Blood pressure 97.6 degrees 68/minute 16/minute 138/90 Weight 91.2 kg More Mann APRN.CNP 08/25/2019 10:24 AM Signed This Team Access Model visit is a same day encounter. It req uired patient-provider interaction for the medical decision making as documented below. CC Patient presents with: Abdominal Pain HPI Alexia Merida is a 83 year old male wh o presents with abdominal pain for for a few days. Location: LLQ without radiation Described as: constant ache Aggravating factors: movement Alleviating factors: at the end of a bowel movement Associated symptoms: bloating. Patient also reports ch ronic constipation for the past 6 to 8 months. Stools are usually large , hard and has to strain with every BM. Typically has a BM every 1 to 2 days, takes laxati ves as needed. Feels that he gets plenty of fiber in his diet a nd thinks his fluid intake is adequate. Has not been very active lately with CRISTELA krishnan Denies: blood in stools or black stools, diarrhea, heart bur n, nausea, vomiting, excessive belching GI history: GERD and diverticulosis. Surgeries: cholecyste ctomy. Endoscopy: 2010- colonoscopy which was normal except for diverticulosis REVIEW OF SYSTEMS General: denies dizziness, lightheadedness, weig ht loss, fever, chills, night sweats, syncope CV: denies chest pain, palpitations, edema Resp: denies SOB, cough, wheezing : denies dysuria, urgency, frequency, hesitancy, hematuria, dark/concentrated urine, decreased urine output or history of kidney stones PAST MEDICAL HISTORY Diagnosis Date - Actinic keratosis 2008 - Atrial fibrillation (HCC) 01/10/2010 - Atrial flutter (HCC) 01/04/2010 - CAD (coronary artery disease) 01/22/2005 Ruben Nash MD. [facility]. 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 10/04/2007 - Unspecified cardiovascular disease PAST SURGICAL HISTORY Procedure Laterality Date - COLONOSCOP W/ OR W/O BRSH SPEC 06/12/10 - COLONOSCOP W/ OR W/O BRS SPEC 06/26/2014 Colonoscopy - DESTR LESION BENIGN/PREMAL 06/10/06 SKs ablated x 4 - EGD W/O BRSH SPECIMEN W/BX 11/07/11 - EGD W/O OR W/BRUSH/WASH 04/13/14 EGD - HEART SURGERY HX 01/2004 Triple bypass - INSERT/REPL DEFIB LEAD/GENER OTHR 08/22/2008 AICD - LAPAROSCOPIC CHOLEYCYSTECTOMY 1976 Cholecystectomy, lap - TRANSCATH STENT ADDN VESSEL,PERCUT 04/05/2013 Proximal RCA Promus MATTHEW [employer]ERGIES Penicillins; Sulfa (Sulfonamide Antibiotics) MEDICATIONS zolpidem (AMBIEN) 5 mg tablet Take 1 tablet by m outh at bedtime as needed for Sedation for up to 180 days. FOR SLEEP atorvastatin (LIPITOR) 40 mg tablet Take 1 tablet by mouth o nce daily. carvedilol (COREG) 6.25 mg tablet Take 1 tablet by mouth twi ce daily. ipratropium bromide (ATROVENT) 42 mcg (0 .06 %) nasal spray Use 2 Sprays in the nose three times daily. albuterol HFA (VENTOLIN HFA) 90 mcg/actuation inhaler Inhale 1-2 Puffs as instructed every 4 hours as needed. ipratropium-albuterol (COMBIVENT RESPIMAT) 20-10 0 mcg/actuation mist Inhale 1 Puff as instructed. Inhale 1 puff once daily apixaban (ELIQUIS) 5 mg tab(s) Take 1 tablet by mouth twice daily. mometasone-formoterol (DULER A) 200-5 mcg/actuation inhaler Inhale as instructed twice daily. fluticasone (FLONASE) 50 mcg/actuation nasal spray Use 1-2 S prays in each nostril once daily. Rinse mouth after use. Use once daily as needed. aspirin, enteric coated (ADULT LOW DOSE ASPIRIN) 81 mg EC tablet Take 1 tablet by mouth once daily. furosemide 20 mg tablet Take 1 tablet by mouth once daily. lisinopril 40 mg ORAL tablet Take 1 tablet by mouth once belia ly. FAMILY HISTORY Problem Relation Age of Onset - Heart Mother - Prostate Cancer Brother Social History Tobacco Use - Smoking status: Former Smoker Packs/day: 1.00 Years: 15.00 Pack years: 15.00 Types: Cigarettes Last attempt to quit: 05/04/1974 Years since quittin.3 - Smokeless tobacco: Never Used - Tobacco comment: Quit 1974 Substance Use Topics - Alcohol use: Yes Alcohol/week: 5.0 standard drinks Types: 2 Cans of Beer (12oz) per week Frequency: 2-4 times a month Drinks per session: 1 or 2 Binge frequency: Never - Drug use: No PHYSICAL EXAM BP 138/90 Pulse 68 Temp 36.4 ?C (97.6 ?F) (Temporal) R manny 16 Wt 91.2 kg (201 lb) SpO2 97% BMI 30.56 kg/m? General Appearance: in no acute distress, alert, appears unc omfortable Lungs: lungs clear to auscultation. No wheezing, rhonchi, ra les Heart: RRR without murmur, gallop, or rubs. No ectopy Abdomen: Soft, round, non-distended. marked left lower quadr ant abdominal tenderness with palpation. No guarding or rebound tenderness . Bowel sounds hyperactive LLQ, otherwise normal. No masses, organomegaly. CVA tenderness absent ASSESSMENT/PLAN: 1. Left lower quadrant abdominal pain - ICD9: 789.04, ICD10: R10.32 (primary diagnosis) Constipation vs diverticulitis. No alarm symptoms or exam fi ndings. - Stat CT ABD/PEL W IVCON - Follow-up and treatment pending results 2. Constipation, unspecified constipation type - ICD9: 564.00, ICD10: K59.00 Chronic for the past 6 months. 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 Needs daily stool softener, recommend Miralax. Also discussed non-medication treatment measures. Do not start Miralax shirley hartmann notified. Follow-up with GI, patient was to have colonoscopy but never scheduled. Constipation is new, needs further work-up 3. Encounter for medication monitoring - ICD9: V58.83, ICD10 : Z51.81 - CREATININE BLD due to evaluate kidney function for IV cont rast Prescription instructions reviewed with patient as elysia licable. Potential red flag symptoms discussed with the patient. Review ed appropriate action plan to take if red flag symptoms occur. Patient agreeable to treatm ent plan. GALO Zavala APRN.CNP 08/25/2019 10:14 AM Signed HOME INSTRUCTIONS FOR MANAGEMENT OF CONSTIPATION NON-MEDICATION MEASURES: 1. Increase your intake of fluids daily. Try to include 8 - 8 ounce glasses per day. Sip on fluids throughout the day. 2. Add more fiber to your diet. The tere mmended daily amount of fiber is 20 to 35 grams. If you are increasing your fiber intake do so slow ly to avoid bloating and discomfort. The best source of fiber comes from foods. Examples of high fiber foods include whole grain breads and cereals, fru its (berries, prunes, oranges, etc) and vegetables (lettuce, broccoli, p otato with skins, etc.). There are also fiber supplements available over the c ounter such as Metamucil? or Benefiber? 3. Increase your daily activ ity (walking, moving from bed to chair, or exercise in bed) 4. Set aside a time preferably around the same time ea ch day (example: right after breakfast) to move bowels. MEDICATION MEASURES: 1. Miralax 1 cap-full in a b everage once daily. This is a daily medication, can adjust how much you need over time depending on your stools. For example, decrease dose to half or every other day or so if stools bec ome too loose. Go to ER if you develop severe abdominal pain, vomiting that won't stop, fever above 100.5, rigid/hard abdomen. Referring Provider: SELF [200] Allergies As of Date: 08/25/2019 Noted Allergy Reaction PENICILLINS 01/22/2005 2 - Rash 9 - Itching SULFA (SULFONAMIDE ANTIBIOTICS) 01/22/2005 2 - Rash 9 - Itching Date Reviewed: 08/25/2019 Reviewed by: Shelia Chappell [employer] - Fully Assessed Reason for Visit: Abdominal Pain [1] Primary Visit Diagnosis:Left lower quadrant abdominal pain [ R10.32] Other Visit Diagnoses:Constipation, unspecified constipation type [K59.00] Encounter for medication monitoring [Z51.81] Order(s):CT ABD/PEL W IVCON [[id number]] Order #: [id number] FU TURE iv contrast (will be provided with radiology test)CT ABD/PEL -Inject, intravenously, once for 1 dose.No IV access, insert saline l ock prior to the beginning of sedation, infusion, injection of imaging exam. Discontinue saline lock post exam. If Pt. has a central line or IVAD, may access for administration according to line specific milly sing protocol. Once exam is complete flush line and de-access acc ording to line specific nursing protocol in the CT contrast administra tion guidelines link.Disp: 1 EachRfl: 0 enteric contrast (will be provided with radiology test)For C T ABD/PEL W IVCON Routine order Administer, As Directed One Time Only, via Oral, Rectal, both Oral and Rectal, Enteric Tube, Stoma or Indwell ing Catheter, Enteric Contrast as designated per enteric contras t guidelinesDisp: 1 EachRfl: 0 CREATININE BLD [SQCRET] Order #: [id number] FUTURE Prescriptions as of 08/25/2019 Sig: ZOLPIDEM 5 MG TABLET Take 1 tablet by mouth at bed* ATORVASTATIN 40 MG TABLET Take 1 tablet by mouth once d* CARVEDILOL 6.25 MG TABLET Take 1 tablet by mouth twice * IPRATROPIUM BROMIDE 42 MCG (0* Use 2 Sprays in the nose thre * ALBUTEROL SULFATE HFA 90 MCG/* Inhale 1-2 Puffs as instructe * IPRATROPIUM 20 MCG-ALBUTEROL * Inhale 1 Puff as instructed. * APIXABAN 5 MG TABLET Take 1 tablet by mouth twice * MOMETASONE-FORMOTEROL HFA 200* Inhale as instructed twice da * FLUTICASONE PROPIONATE 50 MCG* Use 1-2 Sprays in each nostri * ASPIRIN 81 MG TABLET,DELAYED * Take 1 tablet by mouth once d * FUROSEMIDE 20 MG TABLET Take 1 tablet by mouth once d* LISINOPRIL 40 MG TABLET Take 1 tablet by mouth once d* IV CONTRAST (RADIOLOGY PROCED* CT ABD/PEL -Inject, intraveno * ENTERIC CONTRAST (RADIOLOGY P* For CT ABD/PEL W IVCON Routin * Problem List As Of Date 08/25/2019 Noted Resolved CAD (coronary artery disease) [I25.10] 01/22/2005 More... 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 Pruritic disorder [L29.9] 03/23/2009 09/24/2010 Cardiomyopathy, ischemic [I25.5] 08/28/2009 COPD (Chronic Obstructive Pulmonary Disease) [J*10/17/2009 More... Atrial flutter [I48.92] 01/04/2010 12/29/2012 Atrial fibrillation [I48.91] 01/10/2010 Gastric ulcer, unspecified as acute or chronic,*11/12/2011 0 12/29/2012 Esophagitis, unspecified [K20.9] 11/12/2011 12/29/2012 Insomnia [G47.00] 06/30/2012 Occult GI bleeding [R19.5] 12/31/2012 01/10/2015 Nonspecific abnormal finding in stool contents *04/13/2014 1 06/14/2013 Colon polyps [K63.5] 01/10/2015 History of CVA (cerebrovascular accident) [Z86.*06/04/2017 More... History of basal cell carcinoma (BCC) of skin [*03/10/2018 More... Pleural plaque, left [J92.9] 10/29/2018 Other instructions from your clinician: HOME INSTRUCTIONS FOR MANAGEMENT OF CONSTIPATION NON-MEDICATION MEASURES: 1. Increase your intake of fluids daily. Try to include 8 - 8 ounce glasses per day. Sip on fluids throughout the day. 2. Add more fiber to your diet. The recommended daily amount of fiber is 20 to 35 grams. If you are increasing your fiber intake do s o slowly to avoid bloating and discomfort. The best source of fiber come s from foods. Examples of high fiber foods include whole grain breads and cereals, fruits (berries, prunes, oranges, etc) and vegetables (lettu ce, broccoli, potato with skins, etc.). There are also fiber supplements a vailable over the counter such as Metamucil? or Benefiber? 3. Increase your daily activity (walking, moving from bed to chair, or exercise in bed) 4. Set aside a time preferably around the same time each day (example: right after breakfast) to move bowels. MEDICATION MEASURES: 1. Miralax 1 cap-full in a beverage once daily. This is a da pavithra medication, can adjust how much you need over time depending on your stools. For example, decrease dose to half or every other da y or so if stools become too loose. Go to ER if you develop severe abdominal pain, vomiting t hat won't stop, fever above 100.5, rigid/hard abdomen. Prescriptions ordered this encounter Disp Refills Start End IV CONTRAST (RADIOLOGY PROCEDURE) 1 Ea* 0 08/25/2019 020 Class: In Office Sig: CT ABD/PEL -Inject, intravenously, once for 1 dos e.No IV access, insert saline lock prior to the beginning of sedation, infusion, in jection of imaging exam. Discontinue saline lock post exam. If Pt. has a central line or IVAD, may access for administration according to lois e specific nursing protocol. Once exam is complete flush line and de-ac cess according to line specific nursing protocol in the CT contra st administration guidelines link. ENTERIC CONTRAST (RADIOLOGY PROCEDUR* 1 Ea* 0 08/25/2019 Class: In Office Sig: For CT ABD/PEL W IVCON Routine order Administer, As Dir ected One Time Only, via Oral, Rectal, both Oral and Rectal, Enteric Tube, Stoma or Indwelling Catheter, Enteric Contrast as designated per ente lillian contrast guidelines Encounter Status:Closed by MORE MANN CNP on 08/25/19 obsolete on 2019-08 OBSOLETE Refill (INTMWS) Normal [facility]-04[facility] ALEXIA MERIDA ([id number]) 1935 M [facility] Time Provider Department ([id number]) 08/04/19 TORIN NOYOLA INTTamraWS During your visit today, we recorded the following informati on about you: Junie Browne Admin Sec 08/04/2019 2:16 PM Signed Patient has been identified by name and date of : Yes Last office visit in this department: 03/28/2019 RX INSTRUCTIONS: Patient aware RX will be sent to pharmacy. No need to notify patient. Patient phones requesting refills as follows: Pending Prescriptions Disp Refills ZOLPIDEM 5 MG TABLET 30 tablet 1 Sig: Take 1 tablet by mouth at bedtime as needed for Sedat ion for up to 180 days. FOR SLEEP MORENO Class: C-IV NIYA: No Please review and advise. Junie Hollie Admin Sec More Mann APRN.CNP 08/04/2019 2:36 PM Signed PDMP website checked and validated. All prescrip tions have been APPROPRIATELY filled. No suspicious activity was ident ified. 08/04/2019 by More Older, DECATIZER.NUTRITION REPRESENTATIVE Allergies As of Date: 08/04/2019 Noted Allergy Reaction PENICILLINS 01/22/2005 2 - Rash 9 - Itching SULFA (SULFONAMIDE ANTIBIOTICS) 01/22/2005 2 - Rash 9 - Itching Date Reviewed: 03/28/2019 Reviewed by: Marge Navarrete LPN - Fully Assessed Reason for Visit: Refill Request [94] Visit Diagnosis:Insomnia, unspecified type [G47.00] Order(s):zolpidem (AMBIEN) 5 mg tabletTake 1 tablet by mouth at bedtime as needed for Sedation for up to 180 days. FOR SLEEPDisp: 30 ta bletRfl: 1 Prescriptions as of 08/04/2019 Sig: ZOLPIDEM 5 MG TABLET Take 1 tablet by mouth at bed* ATORVASTATIN 40 MG TABLET Take 1 tablet by mouth once d* CARVEDILOL 6.25 MG TABLET Take 1 tablet by mouth twice * IPRATROPIUM BROMIDE 42 MCG (0* Use 2 Sprays in the nose thre * Patient not taking: Reported on 03/28/2019 ALBUTEROL SULFATE HFA 90 MCG/* Inhale 1-2 Puffs as instructe * IPRATROPIUM 20 MCG-ALBUTEROL * Inhale 1 Puff as instructed. * APIXABAN 5 MG TABLET Take 1 tablet by mouth twice * MOMETASONE-FORMOTEROL HFA 200* Inhale as instructed twice da * FLUTICASONE PROPIONATE 50 MCG* Use 1-2 Sprays in each nostri * ASPIRIN 81 MG TABLET,DELAYED * Take 1 tablet by mouth once d * FUROSEMIDE 20 MG TABLET Take 1 tablet by mouth once d* LISINOPRIL 40 MG TABLET Take 1 tablet by mouth once d* Problem List As Of Date 08/04/2019 Noted Resolved CAD (coronary artery disease) [I25.10] 01/22/2005 More... 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 Pruritic disorder [L29.9] 03/23/2009 09/24/2010 Cardiomyopathy, ischemic [I25.5] 08/28/2009 COPD (Chronic Obstructive Pulmonary Disease) [J*10/17/2009 More... Atrial flutter [I48.92] 01/04/2010 12/29/2012 Atrial fibrillation [I48.91] 01/10/2010 Gastric ulcer, unspecified as acute or chronic,*11/12/2011 0 12/29/2012 Esophagitis, unspecified [K20.9] 11/12/2011 12/29/2012 Insomnia [G47.00] 06/30/2012 Occult GI bleeding [R19.5] 12/31/2012 01/10/2015 Nonspecific abnormal finding in stool contents *04/13/2014 1 06/14/2013 Colon polyps [K63.5] 01/10/2015 History of CVA (cerebrovascular accident) [Z86.*06/04/2017 More... History of basal cell carcinoma (BCC) of skin [*03/10/2018 More... Pleural plaque, left [J92.9] 10/29/2018 Prescriptions ordered this encounter Disp Refills Start End ZOLPIDEM 5 MG TABLET 30 t* 1 08/04/2019 01/31/2020 Route: ORAL Sig: Take 1 tablet by mouth at bedtime as needed for Sedat ion for up to 180 days. FOR SLEEP Medications Discontinued During This Encounter zolpidem (AMBIEN) 5 mg tablet 30 t* 1 11/18/2017 08/04/2019 Class: Print RX Route: ORAL Sig: Take 1 tablet by mouth at bedtime as needed for Sedation for up to 180 days. FOR SLEEP Disc: Reason for discontinue is not on file. Encounter Status:Closed by MORE MANN CNP on 08/04/19 progress on 2019-03 PROGRESS HNO ID: [id number] Normal 03-28-2019 [facility] Author: Torin Noyola [place] ([id number]) Service: ? Author Type: Physician Type: Progress Notes Filed: 03/28/2019 1:45 PM Note Text: This note was created using Skubana. Subjective Patient presents with: Yearly Exam: Physical He had chronic progressive neck pain radiating to the right shoulder. He saw a practicioner at [facility], and CT of the spine wa s scheduled. He was referred to pain management, and was scheduled to see Dr. Gillespie. He had tried CBD oil. He was felt to be high risk for any anand rgical intervention. His coronary artery disease, hypertension, chronic obstructi ve pulmonary disease, and obstructive sleep apnea were controlled. He fol lowed with Dr. Sanchez for pulmonary. He followed with [facility]. He followed with Dr. Aric Zelaya for dermatology . He complained of right ear being plugged today. Review of Systems Constitutional: Negative for activity change, appetite luis e, diaphoresis, fever and unexpected weight change. HENT: Positive for hearing loss. Negative for ear discharge, ear pain and trouble swallowing. Eyes: Negative. Respiratory: Negative. Cardiovascular: Positive for leg swelling. Negative for ches t pain and palpitations. Gastrointestinal: Negative. Negative for blood in stool. Genitourinary: Negative. Negative for hematuria. Musculoskeletal: Positive for arthralgias and neck pain. Skin: Negative. Neurological: Negative. PAST MEDICAL HISTORY Diagnosis Date - Actinic keratosis 2008 - Atrial fibrillation (HCC) 01/10/2010 - Atrial flutter (HCC) 01/04/2010 - CAD (coronary artery disease) 01/22/2005 Ruben Nash MD. [facility]. 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 10/04/2007 - Unspecified cardiovascular disease PAST SURGICAL HISTORY Procedure Laterality Date - COLONOSCOP W/ OR W/O BRSH SPEC 06/12/10 - COLONOSCOP W/ OR W/O BRS SPEC 06/26/2014 Colonoscopy - DESTR LESION BENIGN/PREMAL 06/10/06 SKs ablated x 4 - EGD W/O [facility] SPECIMEN W/BX 11/07/11 - EGD W/O OR W/BRUSH/WASH 04/13/14 EGD - HEART SURGERY HX 01/2004 Triple bypass - INSERT/REPL DEFIB LEAD/GENER OTHR 08/22/2008 AICD - LAPAROSCOPIC CHOLEYCYSTECTOMY 1976 Cholecystectomy, lap - TRANSCATH STENT ADDN VESSEL,PERCUT 04/05/2013 Proximal RCA Promus MATTHEW FAMILY HISTORY Problem Relation Age of Onset - Heart Mother - Prostate Cancer Brother Social History Tobacco Use - Smoking status: Former Smoker Packs/day: 1.00 Years: 15.00 Pack years: 15.00 Types: Cigarettes Last attempt to quit: 05/04/1974 Years since quittin.9 - Smokeless tobacco: Never Used - Tobacco comment: Quit 1974 Substance Use Topics - Alcohol use: Yes Alcohol/week: 5.0 standard drinks Types: 2 Cans of Beer (12oz) per week - Drug use: No Objective BP 116/70 Pulse 69 Temp 36.8 ?C (98.3 ?F) Resp 18 Ht 172.7 cm (5' 8) Wt 90.7 kg (200 lb) SpO2 98% BMI 30.41 kg/m? Physical Exam Constitutional: Appearance: Normal appearance. HENT: Head: Normocephalic. Ears: Comments: Moderate cerumen bilaterally. Nose: Nose normal. Eyes: General: No scleral icterus. Extraocular Movements: Extraocular movements intact. Conjunctiva/sclera: Conjunctivae normal. Pupils: Pupils are equal, round, and reactive to light. Neck: Musculoskeletal: Neck rigidity present. No muscular tenderne ss. Vascular: No carotid bruit. Cardiovascular: Rate and Rhythm: Normal rate. Rhythm irregular. Heart sounds: S1 normal and S2 normal. Murmur present. Systo lic murmur present with a grade of 1/6. No gallop. Comments: LSB Pulmonary: Effort: Pulmonary effort is normal. Breath sounds: Normal breath sounds. Abdominal: General: There is no distension. Tenderness: There is no tenderness. Musculoskeletal: General: No tenderness. Right shoulder: He exhibits decreased range of motion. He ex hibits no tenderness, no swelling and no deformity. Right lower leg: Edema present. Left lower leg: Edema present. Comments: 1+ bipedal pitting edema. Skin: Comments: Dermatophytosis of right big toenail, with fungal toenail being pushed out by healthier looking nail. No tenderness or inflammation. Neurological: Mental Status: He is alert. The Mini Cog(c): Word recall=3/3 + Clock drawing=2/2=5/5. (< 3 is positive). Assessment and Plan 1. Routine medical exam - ICD9: V70.0, ICD10: Z00.00 (primar y diagnosis) - Recommended regular aerobic exercise. - Discussed need and benefit for weight loss. BMI 30.41 kg/( m2) - Follow up for annual exam in one year. 2. Impacted cerumen, bilateral - ICD9: 380.4, ICD10: H61.23 Lavaged bilaterally. - PERS HLTH MGMT EAR WAX REMOVA 3. 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 4. OTILIA on Bilevel PAP - ICD9: 327.23, V46.8, ICD10: G47.33, Z99.89 Using BiPAP with benefit. 5. Atrial fibrillation, unspecified type (HCC) - ICD9: 427.3 1, ICD10: I48.91 Anticoagulated, rate controlled. 6. Essential hypertension - ICD9: 401.9, ICD10: I10 - good control 7. Adenomatous polyp of colon, unspecified part of colon - I CD9: 211.3, ICD10: D12.6 - CONSULT TO GASTROENTEROLOGY - Patient indicated understanding and willingness to follow recommendations. Torin Noyola MD cnov on 2019-03-28 CNOV Office Visit (INTMWS) Normal 03-28-20 19 [facility] MAGNOLIAALEXIA Miller ([id number]) 1935 [place] Date Time Provider Department ([id number]) 03/28/19 10:20 AM TORIN NOYOLA INTMWS During your visit today, we recorded the following informati on about you: Temperature Pulse Respiration Blood pressure 98.3 degrees 69/minute 18/minute 116/70 Weight Height 90.7 kg 1.727 m Torin Noyola MD 03/28/2019 1:45 PM Signed This note was created using NoteWriter. Subjective Patient presents with: Yearly Exam: Physical He had chronic progressive neck pain rad iating to the right shoulder. He saw a practicioner at [facility], and CT of the spine was sche duled. He was referred to pain management, and was cyn eduled to see Dr. Gillespie. He had tried CBD oil. He was felt to be high risk for any surgical interv ention. His coronary artery disease, hypertension, chronic obstructi ve pulmonary disease, and obstructive sleep apnea were controlled. He fol lowed with Dr. Sanchez for pulmonary. He followed with Dr. Cordero, [facility]. He followed with Dr. Aric Zelaya for dermatology. He complained of right ear being plugged today. Review of Systems Constitutional: Negative for activity change, appetite malik nge, diaphoresis, fever and unexpected weight change. HENT: Positive for hearing loss. Negative for ear discharge, ear pain and trouble swallowing. Eyes: Negative. Respiratory: Negative. Cardiovascular: Positive for leg swelling. Negative for ches t pain and palpitations. Gastrointestinal: Negative. Negative for blood in stool. Genitourinary: Negative. Negative for hematuria. Musculoskeletal: Positive for arthralgias and neck pain. Skin: Negative. Neurological: Negative. PAST MEDICAL HISTORY Diagnosis Date - Actinic keratosis 2008 - Atrial fibrillation (HCC) 01/10/2010 - Atrial flutter (HCC) 01/04/2010 - CAD (coronary artery disease) 01/22/2005 Ruben Nash MD. [facility]. 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 10/04/2007 - Unspecified cardiovascular disease PAST SURGICAL HISTORY Procedure Laterality Date - COLONOSCOP W/ OR W/O BRSH SPEC 06/12/10 - COLONOSCOP W/ OR W/O [facility] SPEC 06/26/2014 Colonoscopy - DESTR LESION BENIGN/PREMAL 06/10/06 SKs ablated x 4 - EGD W/O [facility] SPECIMEN W/BX 11/07/11 - EGD W/O OR W/BRUSH/WASH 04/13/14 EGD - HEART SURGERY HX 01/2004 Triple bypass - INSERT/REPL DEFIB LEAD/GENER OTHR 08/22/2008 AICD - LAPAROSCOPIC CHOLEYCYSTECTOMY 1976 Cholecystectomy, lap - TRANSCATH STENT ADDN VESSEL,PERCUT 04/05/2013 Proximal RCA Promus MATTHEW FAMILY HISTORY Problem Relation Age of Onset - Heart Mother - Prostate Cancer Brother Social History Tobacco Use - Smoking status: Former Smoker Packs/day: 1.00 Years: 15.00 Pack years: 15.00 Types: Cigarettes Last attempt to quit: 05/04/1974 Years since quittin.9 - Smokeless tobacco: Never Used - Tobacco comment: Quit 1974 Substance Use Topics - Alcohol use: Yes Alcohol/week: 5.0 standard drinks Types: 2 Cans of Beer (12oz) per week - Drug use: No Objective BP 116/70 Pulse 69 Temp 36.8 ?C (98.3 ?F) Resp 18 Ht 172.7 cm (5' 8) Wt 90.7 kg (200 lb) SpO2 98% BMI 30.41 kg/m? Physical Exam Constitutional: Appearance: Normal appearance. HENT: Head: Normocephalic. Ears: Comments: Moderate cerumen bilaterally. Nose: Nose normal. Eyes: General: No scleral icterus. Extraocular Movements: Extraocular movements intact. Conjunctiva/sclera: Conjunctivae normal. Pupils: Pupils are equal, round, and reactive to light. Neck: Musculoskeletal: Neck rigidity present. No muscular tenderne ss. Vascular: No carotid bruit. Cardiovascular: Rate and Rhythm: Normal rate. Rhythm irregular. Heart sounds: S1 normal and S2 normal. Murmur present. Systo lic murmur present with a grade of 1/6. No gallop. Comments: LSB Pulmonary: Effort: Pulmonary effort is normal. Breath sounds: Normal breath sounds. Abdominal: General: There is no distension. Tenderness: There is no tenderness. Musculoskeletal: General: No tenderness. Right shoulder: He exhibits decreased range of motion. He ex hibits no tenderness, no swelling and no deformity. Right lower leg: Edema present. Left lower leg: Edema present. Comments: 1+ bipedal pitting edema. Skin: Comments: Dermatophytosis of right big toenail, with fungal toenail being pushed out by healthier looking nail. No tenderness or infla mmation. Neurological: Mental Status: He is alert. The Mini Cog(c): Word recall=3/3 + Clock drawing=2/2=5/5. (<3 is positive). Assessment and Plan 1. Routine medical exam - ICD9: V70.0, ICD10: Z00.00 (primar y diagnosis) - Recommended regular aerobic exercise. - Discussed need and benefit for weight loss. BMI 30.41 kg/( m2) - Follow up for annual exam in one year. 2. Impacted cerumen, bilateral - ICD9: 380.4, ICD10: H61.23 Lavaged bilaterally. - PERS HLTH MGMT EAR WAX REMOVA 3. Spondylosis of cervical region without myelop athy or radiculopathy - ICD9: 721.0, ICD10: M47.812 To see pain management. 4. OTILIA on Bilevel PAP - ICD9: 327.23, V46.8, ICD10: G47.33, Z99.89 Using BiPAP with benefit. 5. Atrial fibrillation, unspecified type (HCC) - ICD9: 427.31, ICD10: I48.91 Anticoagulated, rate controlled. 6. Essential hypertension - ICD9: 401.9, ICD10: I10 - good control 7. Adenomatous polyp of colon, unspecifi ed part of colon - ICD9: 211.3, ICD10: D12.6 - CONSULT TO GASTROENTEROLOGY - Patient indicated understanding and willingness to f ollow recommendations. Torin Noyola MD Referring Provider: TORIN NOYOLA [[id number]] Allergies As of Date: 03/28/2019 Noted Allergy Reaction PENICILLINS 01/22/2005 2 - Rash 9 - Itching SULFA (SULFONAMIDE ANTIBIOTICS) 01/22/2005 2 - Rash 9 - Itching Date Reviewed: 03/28/2019 Reviewed by: Marge Navarrete LPN - Fully Assessed Reason for Visit: Yearly Exam [187] Cmt: Physical Primary Visit Diagnosis:Routine medical exam [Z00.00] Other Visit Diagnoses:Impacted cerumen, bilateral [H61.23] Spondylosis of cervical region without myelopathy or radiculopathy [M47.812] OTILIA on Bilevel PAP [G47.33, Z99.89] Atrial fibrillation, unspecified type (HCC) [I48.91] Essential hypertension [I10] Adenomatous polyp of colon, unspecified part of colon [D12.6] Order(s):PERS [facility] MGMT EAR WAX REMOVA [[id number]] Order #: [id number] CONSULT TO GASTROENTEROLOGY [9010] Order #: [id number]: 1 Prescriptions as of 03/28/2019 Sig: ATORVASTATIN 40 MG TABLET Take 1 tablet by mouth once d* CARVEDILOL 6.25 MG TABLET Take 1 tablet by mouth twice * ALBUTEROL SULFATE HFA 90 MCG/* Inhale 1-2 Puffs as instructe * IPRATROPIUM 20 MCG-ALBUTEROL * Inhale 1 Puff as instructed. * APIXABAN 5 MG TABLET Take 1 tablet by mouth twice * ZOLPIDEM 5 MG TABLET Take 1 tablet by mouth at bed* FLUTICASONE PROPIONATE 50 MCG* Use 1-2 Sprays in each nostri * ASPIRIN 81 MG TABLET,DELAYED * Take 1 tablet by mouth once d * FUROSEMIDE 20 MG TABLET Take 1 tablet by mouth once d* LISINOPRIL 40 MG TABLET Take 1 tablet by mouth once d* IPRATROPIUM BROMIDE 42 MCG (0* Use 2 Sprays in the nose thre * Patient not taking: Reported on 03/28/2019 MOMETASONE-FORMOTEROL HFA 200* Inhale as instructed twice da * Problem List As Of Date 03/28/2019 Noted Resolved CAD (coronary artery disease) [I25.10] 01/22/2005 More... 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 Pruritic disorder [L29.9] 03/23/2009 09/24/2010 Cardiomyopathy, ischemic [I25.5] 08/28/2009 COPD (Chronic Obstructive Pulmonary Disease) [J*10/17/2009 More... Atrial flutter [I48.92] 01/04/2010 12/29/2012 Atrial fibrillation [I48.91] 01/10/2010 Gastric ulcer, unspecified as acute or chronic,*11/12/2011 0 12/29/2012 Esophagitis, unspecified [K20.9] 11/12/2011 12/29/2012 Insomnia [G47.00] 06/30/2012 Occult GI bleeding [R19.5] 12/31/2012 01/10/2015 Nonspecific abnormal finding in stool contents *04/13/2014 1 06/14/2013 Colon polyps [K63.5] 01/10/2015 History of CVA (cerebrovascular accident) [Z86.*06/04/2017 More... History of basal cell carcinoma (BCC) of skin [*03/10/2018 More... Pleural plaque, left [J92.9] 10/29/2018 Disposition: Return in about 6 months (around 09/26/2019), or if symptoms worsen or fail to improve. Follow-up and Disposition History Recorded Encounter Status:Closed by TORIN NOYOLA MD on 9 obsolete on 2019-03 OBSOLETE Refill (INTMWS) Normal 03-14-2019 [facility] ALEXIA MERIDA ([id number]) 1935 [facility] Date Time Provider Department ([id number]) 03/14/19 TORIN NOYOLA During your visit today, we recorded the following informati on about you: Matilde Vera 03/14/2019 12:10 PM Signed Patient has been identified by name and date of : Yes Pending Prescriptions Disp Refills ATORVASTATIN 40 MG TABLET 90 tablet 3 Sig: Take 1 tablet by mouth once daily. NIYA: No RX INSTRUCTIONS: Patient is out of medication - Please send today. Patient aware RX will be sent to pharmacy. Please notify the patient once completed. Matilde Fabian [facility] Delia Castro LPN 03/14/2019 1:59 PM Signed Patient has been identified by name and date of : Yes Patient phones for refill(s): Pending Prescriptions Disp Refills ATORVASTATIN 40 MG TABLET 90 tablet 3 Sig: Take 1 tablet by mouth once daily. NIYA: No Date of last office visit in primary care: 12/23/2018 Yearly scheduled w/PCP: 03/28/2019 Delia Castro LPN Allergies As of Date: 03/14/2019 Noted Allergy Reaction PENICILLINS 01/22/2005 2 - Rash 9 - Itching SULFA (SULFONAMIDE ANTIBIOTICS) 01/22/2005 2 - Rash 9 - Itching Date Reviewed: 12/23/2018 Reviewed by: Shelia Chappell [employer] - Fully Assessed Reason for Visit: Refill Request [94] Visit Diagnosis:Mixed hyperlipidemia [E78.2] Order(s):atorvastatin (LIPITOR) 40 mg tabletTake 1 tablet by mouth once daily.Disp: 90 tabletRfl: 3 Prescriptions as of 03/14/2019 Sig: ATORVASTATIN 40 MG TABLET Take 1 tablet by mouth once d* CARVEDILOL 6.25 MG TABLET Take 1 tablet by mouth twice * IPRATROPIUM BROMIDE 42 MCG (0* Use 2 Sprays in the nose thre * ALBUTEROL SULFATE HFA 90 MCG/* Inhale 1-2 Puffs as instructe * IPRATROPIUM 20 MCG-ALBUTEROL * Inhale 1 Puff as instructed. * APIXABAN 5 MG TABLET Take 1 tablet by mouth twice * ZOLPIDEM 5 MG TABLET Take 1 tablet by mouth at bed* MOMETASONE-FORMOTEROL HFA 200* Inhale as instructed twice da * FLUTICASONE PROPIONATE 50 MCG* Use 1-2 Sprays in each nostri * ASPIRIN 81 MG TABLET,DELAYED * Take 1 tablet by mouth once d * FUROSEMIDE 20 MG TABLET Take 1 tablet by mouth once d* LISINOPRIL 40 MG TABLET Take 1 tablet by mouth once d* Problem List As Of Date 03/14/2019 Noted Resolved CAD (coronary artery disease) [I25.10] 01/22/2005 More... 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 Pruritic disorder [L29.9] 03/23/2009 09/24/2010 Cardiomyopathy, ischemic [I25.5] 08/28/2009 COPD (Chronic Obstructive Pulmonary Disease) [J*10/17/2009 More... Atrial flutter [I48.92] 01/04/2010 12/29/2012 Atrial fibrillation [I48.91] 01/10/2010 Gastric ulcer, unspecified as acute or chronic,*11/12/2011 0 12/29/2012 Esophagitis, unspecified [K20.9] 11/12/2011 12/29/2012 Insomnia [G47.00] 06/30/2012 Occult GI bleeding [R19.5] 12/31/2012 01/10/2015 Nonspecific abnormal finding in stool contents *04/13/2014 1 06/14/2013 Colon polyps [K63.5] 01/10/2015 History of CVA (cerebrovascular accident) [Z86.*06/04/2017 More... History of basal cell carcinoma (BCC) of skin [*03/10/2018 More... Pleural plaque, left [J92.9] 10/29/2018 Prescriptions ordered this encounter Disp Refills Start End ATORVASTATIN 40 MG TABLET 90 t* 3 03/14/2019 Route: ORAL Sig: Take 1 tablet by mouth once daily. Medications Discontinued During This Encounter atorvastatin (LIPITOR) 40 mg tablet 90 t* 3 03/10/20182018 Route: ORAL Sig: Take 1 tablet by mouth once daily. Disc: Reason for discontinue is not on file. Encounter Status:Closed by MORE MANN CNP on 03/14/19 Encounters Date Type Reason Provider Location 01-13-2020 - Patient encounter Fall in (into) shower Xr [facility] 01-13-2020 procedure or empty bathtub, initial encounter Comment: Radiology XR 09-17-2019 - Patient encounter Esophageal ZACH starr 09-17-[address] [facility] ([id number] ) [facility] SOLIS 01-16-2020 - Telephone [facility] 01-16-2020 encounter Comment: disk request Procedures Procedure Name Date Provider Location Radex ribs uni w/posteroant 01-13-2020 Romina (Raul) [facility] ([id number]) minimum 3 views Radex spine thoracic 2 views 01-13-2020 Romina (Lard Maker) [facility] ([id number]) Plan of Treatment Plan Description Date Location ADVANCE DIRECTIVE ADVANCE DIRECTIVE 11-30-2024 - [facility] DISCUSSION DISCUSSION 11-30-2024 ([id number]) DIABETES SCREEN DIABETES SCREEN 03-17-2021 - [facility] 03-17-2021 ([id number]) SPIROMETRY SPIROMETRY 11-30-2020 - [facility] 11-30-2020 ([id number]) Comment: Postponed from 1953 (D eclined at this time) DTAP,TDAP,TD (1 - Tdap) DTAP,TDAP,TD (1 - Tdap) 11-30-2020 - [facility] 11-30-2020 ([id number]) Comment: Postponed from [birth year]09/1954 (D eclined at this time) LDL CHOLESTEROL LDL CHOLESTEROL 01-20-2020 - [facility] 01-20-2020 ([id number]) INFLUENZA (#1) INFLUENZA (#1) 2020 - [facility] 01-03-2020 ([id number]) SHINGRIX VACCINE (2 of SHINGRIX VACCINE (2 of 01-06-2012 - [facility] 3) 3) 01-06-2012 ([id number]) no information [facility] ([id number]) Immunizations Vaccine Notes Status Date Location Influenza Vaccine, influenza virus (completed) 02-01-2013 - [facility] Split-Non Spec vaccine, unspecified 02-01-2013 ([id number] 5) formulation Influenza Vaccine, influenza virus (completed) 02-02-2012 - [facility] Split-Non Spec vaccine, unspecified 02-02-2012 (4419 5) formulation Influenza Vaccine, influenza virus (completed) 03-25-2011 - [facility] Split-Non Spec vaccine, unspecified 03-25-2011 ([id number] 5) formulation Influenza Seasonal - influenza, high dose (completed) 02-23-2019 - [facility] High Dose - Age 65+ seasonal, 02-23-2019 ([id number]) preservative-free Influenza Seasonal - influenza, high dose (completed) 02-15-2018 - [facility] High Dose - Age 65+ seasonal, 02-15-2018 (57025) preservative-free Influenza Seasonal - influenza, high dose (completed) 03-04-2017 - [facility] High Dose - Age 65+ seasonal, 03-04-2017 (13626) preservative-free Influenza Seasonal influenza, seasonal, (completed) 02-09-2018 - [facility] Trivalent Inj Pres injectable, 02-09-2018 (57743) Free preservative free Influenza Seasonal influenza, seasonal, (completed) 03-04-2017 - [facility] Trivalent Inj Pres injectable, 03-04-2017 (81457) Free preservative free Novel Influenza H1N1, novel (completed) 05-02-2009 - [facility] preservative free [id number], 05-02-2009 ([id number]) preservative-free, injectable Pneumococcal-13 Vac pneumococcal conjugate (completed) 07-04-2014 - [facility] Conjugate vaccine, 13 valent 07-04-2014 ([id number]) Pneumovax pneumococcal (completed) 03-22-2007 - [facility] polysaccharide vaccine, 03-22-2007 ([id number]) 23 valent TD Adult tetanus and diphtheria (completed) 12-29-2012 - [facility] toxoids, adsorbed, 12-29-2012 ([id number]) preservative free, for adult use (2 Lf of tetanus toxoid and 2 Lf of diphtheria toxoid) Zostavax zoster vaccine, live (completed) 11-11-2011 - [place] 11-11-2011 ([id number]) Payers Payer Name Policy Number Location PRIMETIME [id number] [facility] [facility] ([id number] [phone]) PRIMETIME MEDICARE OUTPATIENT [id number] [facility] ([id number]) [id number] [facility] ([id number]) The following information is from the original human readable contentNo Payer Records FoundNo Payer Records FoundNo Payer Records FoundNo Payer Records FoundNo Payer Records Found Social History Type Social History Date Location Description Tobacco smoking status Former smoker 01-13-2020 - [facility] NHIS 01-13-2020 ([id number]) History of tobacco use Current smoker 05-04-1974 [facility] ([id number]) History of tobacco use Cigarette Smoker 05-04-1974 [facility] ([id number]) Cigarettes smoked 01-13-2020 - [facility] current (pack per day) 01-13-2020 ([id number]) - Reported Tobacco use and Never used 01-13-2020 - [facility] exposure 01-13-2020 ([id number]) Alcohol intake Current drinker of 01-13-2020 - [facility] alcohol (finding) 01-13-2020 ([id number]) History SDOH Alcohol 3 03-28-2019 - [facility] Frequency 03-28-2019 ([id number]) History SDOH Alcohol 1 03-28-2019 - [facility] Std Drinks 03-28-2019 ([id number]) Sex Assigned At Not on file [facility] ([id number]) Exposure to SARS-CoV-2 Not sure [facility] (event) ([id number]) The following information is from the original human readable contentNo Social History Records FoundNo Social History Records FoundNo Social History Records FoundNo Social History Records FoundNo Social History Records FoundNo Social History Records FoundNo Social History Records Found Summary Purpose Family History No Family History Records FoundNo Family History Records FoundNo Family History Records FoundNo Family History Records Found Advance Directives No Advanced Directives Records FoundNo Advanced Directives Records FoundNo Advanced Directives Records FoundNo Advanced Directives Records Found History of Past Illness Problem Noted Date Resolved Date Nonspecific abnormal finding in stool contents 04/13/2014 04/13/2014 Occult GI bleeding 12/31/2012 01/10/2015 Gastric ulcer, unspecified as acute or chronic, without 11/0112/29/2012 mention of hemorrhage, perforation, or obstruction Esophagitis, unspecified 11/12/2011 12/29/2012 Atrial flutter 01/04/2010 12/29/2012 Pneumonia 03/23/2009 09/24/2010 Overview: 03/20/09 to [facility] ED for dyspnea/pneumonia/influenza. 04/04/10 xray with pleural effusion LLL-Small left pleural effusion;too small for thoracocentesis. Pruritic disorder 03/23/2009 09/24/2010 Family history of malignant neoplasm of prostate 2008 09/24/2010 Elevated prostate specific antigen (PSA) 2008 03/25/2011 Actinic keratosis 2008 09/24/2010 Degeneration of cervical intervertebral disc 12/23/2007 09/24/2010 Cervicalgia 10/04/2007 09/24/2010 Unspecified disorder of prostate 11/18/2006 011 Other specified congenital anomaly of skin 06/01/2006 09/24/2010 Hypertrophy of prostate without urinary obstruction and othe r 11/10/2005 11/18/2017 lower urinary tract symptoms (LUTS) Problem Noted Date Resolved Date Nonspecific abnormal finding in stool contents 04/13/2014 04/13/2014 Occult GI bleeding 12/31/2012 01/10/2015 Gastric ulcer, unspecified as acute or chronic, without 11/0112/29/2012 mention of hemorrhage, perforation, or obstruction Esophagitis, unspecified 11/12/2011 12/29/2012 Atrial flutter 01/04/2010 12/29/2012 Pneumonia 03/23/2009 09/24/2010 Overview: 03/20/09 to [facility] ED for dyspnea/pneumonia/influenza. 04/04/10 xray with pleural effusion LLL-Small left pleural effusion;too small for thoracocentesis. Pruritic disorder 03/23/2009 09/24/2010 Family history of malignant neoplasm of prostate 2008 09/24/2010 Elevated prostate specific antigen (PSA) 2008 03/25/2011 Actinic keratosis 2008 09/24/2010 Degeneration of cervical intervertebral disc 12/23/2007 09/24/2010 Cervicalgia 10/04/2007 09/24/2010 Unspecified disorder of prostate 11/18/2006 011 Other specified congenital anomaly of skin 06/01/2006 09/24/2010 Hypertrophy of prostate without urinary obstruction and othe r 11/10/2005 11/18/2017 lower urinary tract symptoms (LUTS) History of Present Illness Sharon Hodges (), [facility] - 01/13/2020 3:12 PM EDT Radiology Service Progress Note PATIENT NAME: Alexia Merida DATE OF SERVICE: January 13, 2020 TIME: 3:12 PM PATIENT IDENTITY VERIFICATION COMPLETED USING TWO (2) IDENTIFIERS: Name and Date of confirmed by patient verbally. FALL SCREENING: Has the patient had 2 falls in the last year or 1 fall with injury or currently using an Ambulatory Assistive Device (Walker, Cane, Wheelchair, Crutches, etc.)? No PATIENT GENDER DATA: Male PATIENT RELEVANT IMPLANT DATA REVIEWED: Not Applicable RADIOLOGY DEPARTMENT: General X-ray: Exam(s) Completed: Rib X-Ray: Left Spine X-Ray(s): Thoracic PERIPHERAL IV DATA: Not applicable SIGNED BY: RT Lucas January 13, 2020 3:12 PM documented in this encounter Assessments Diagnosis Fall in bathtub, initial encounter Upper back pain on left side Pain in thoracic spine Additional Source Comments FOR RECORDS PERTAINING TO PATIENTS WHO ARE OR HAVE BEEN ENROLLED IN A CHEMICAL DEPENDENCY/SUBSTANCE ABUSE PROGRAM, SOME INFORMATION MAY BE OMITTED. This clinical summary was aggregated from multiple sources. Caution should be exercised in using it in the provision of clinical care. This summary normalizes information from multiple sources, and as a consequence, information in this document may materially changethe coding, format and clinical context of patient data. In addition, data may be omittedin some cases. CLINICAL DECISIONS SHOULD BE BASED ON THE PRIMARY CLINICAL RECORDS. [facility] provides no warranty or guarantee of the accuracy or completeness of information in this document. UNRECOGNIZED CONTENT PROVIDED BELOW FOR UNRECOGNIZED SECTION No Status Records FoundNo Status Records FoundNo Status Records FoundNo Status Records Found UNRECOGNIZED CONTENT PROVIDED BELOW FOR UNRECOGNIZED SECTION INFORMATION SOURCE DATE CREATED AUTHOR AUTHOR'S ORGANIZATIO N 09/18/2019 [facility] DATE CREATED AUTHOR AUTHOR'S ORGANIZATIO N 09/19/2019 [facility] DATE CREATED AUTHOR AUTHOR'S ORGANIZATIO N 10/10/2019 [facility] Found [facility]ion ([place]) DATE CREATED AUTHOR AUTHOR'S ORGANIZATIO N 01/17/2020 [facility] UNRECOGNIZED CONTENT PROVIDED BELOW FOR UNRECOGNIZED SECTION Source Comments In the event this information is protected by the Federal Confidentiality of Alcohol and Drug Abuse Patient Records regulations: The Federal rules restrict any use of the information to criminally investigate or prosecute any alcohol or drug abuse patient.[facility] the event this information is protected by the Federal Confidentiality of Alcohol and Drug Abuse Patient Records regulations: The Federal rules restrict any use of the information to criminally investigate or prosecute any alcohol or drug abuse patient.[facility] UNRECOGNIZED CONTENT PROVIDED BELOW FOR UNRECOGNIZED SECTION Reason for Visit Reason Comments Radiology XR Reason Onset Date Comments disk request 01/16/2020 UNRECOGNIZED CONTENT PROVIDED BELOW FOR UNRECOGNIZED SECTION Miscellaneous Notes Telephone Encounter - Jane Allred - 01/16/2020 11:00 AM EDTCD/REPORTS READY FOR SUPERVISOR [facility]ENTR[facility] SUPPLY AT [facility] elephone Encounter - Jose Juan Jean - 01/16/2020 10:27 AM EDTPt would like to have images and reports from XRs performed on 01/13/2020 put onto a disk for crop picker. PT informed to crop picker in 24 Hrs at [place]. Thanks Jose Juan Vera documented in this encounter
--- OUTSIDE RECORDS SUMMARY | 2020-02-14 13:01 | XMS RPT_ITS | CCD ---
:1935 External Reference #:[id number] Author Organization [facility] Care Team Providers Name Role Phone IRMA, E Admitting Unavailable IRMA, E Attending Unavailable IRMA, E Primary Care Unavailable Chandan Noyola Primary Care Provider Allergies Reported Allergen Reaction(s) Severity Date of Onset Location Penicillins Rash, Itching 01-22-2005 - [facility] ([id number]) Sulfonamides (Antibiotic) Rash, Itching 01-22-2005 - [facility] (49484) Medications Medication Name Sig Date Prescriber Location Acetaminophen / HYDROcodone-acetam 10-13-2019 [facility] Provider [facility] HYDROcodone inophen (NORCO) (05600) 5-325 mg per tablet Take 1.5 tablets by mouth once daily. Per Pain Management. 0 10/13/2019 Active Comment: Take 1.5 tablets by mouth on ce daily. Per Pain Management. Albuterol albuterol HFA (VENTOLIN HFA) 07-20-2015 [facility] Provider [facility] 90 mcg/actuation inhaler (44 195) Inhale 1-2 Puffs as instructed every 4 hours as needed. 0 07/20/2015 Active Comment: Inhale 1-2 Puffs as instruct ed every 4 hours as needed. Albuterol / ipratropium-albuterol [facility] Provider [facility] Ipratropium (COMBIVENT RESPIMAT) 20-100 (66406) mcg/actuation mist Indications: Chronic obstructive pulmonary disease, unspecified COPD type (HCC) Inhale 1 Puff as instructed. Inhale 1 puff once daily 0 Active Comment: Inhale 1 Puff as instructed. Inhale 1 puff once daily apixaban apixaban (ELIQUIS) 5 mg 12-01-2017 More (Gripper Machine Operator) Older C [facility] tab(s) Indications: Atrial ( 37907) fibrillation, unspecified type (HCC) Take 1 tablet by mouth twice daily. 60 tablet 3 12/01/2017 Active Comment: Take 1 tablet by mouth twice daily. Aspirin aspirin, enteric coated 07-11-2015 Torin rodgers [facility] (ADULT LOW DOSE ASPIRIN) (44 195) 81 mg EC tablet Take 1 tablet by mouth once daily. 0 07/11/2015 Active Comment: Take 1 tablet by mouth once daily. atorvastatin atorvastatin (LIPITOR) 40 03-14-2019 More (Gripper Machine Operator) Older [facility] mg tablet Indications: (4419 5) Mixed hyperlipidemia Take 1 tablet by mouth once daily. 90 tablet 3 03/14/2019 Active Comment: Take 1 tablet by mouth once daily. carvedilol carvedilol (COREG) 6.25 10-29-2018 Torin rodgers [facility] mg tablet Take 1 tablet (441 95) by mouth twice daily. 0 10/29/2018 Active Comment: Take 1 tablet by mouth twice daily. fluticasone fluticasone (FLONASE) 50 04-21-2017 Cheryl ([facility]) [facility] mcg/actuation nasal spray Adilson (4 9720) Indications: Cough , Post-nasal drainage Use 1-2 Sprays in each nostril once daily. Rinse mouth after use. Use once daily as needed. 1 Bottle 2 04/21/2017 Active Comment: Use 1-2 Sprays in each nostr il once daily. Rinse mouth after use. Use once daily as needed. Furosemide furosemide 20 mg tablet 04-14-2013 Torin rodgers [facility] Indications: (25885) Cardiomyopathy, ischemic Take 1 tablet by mouth once daily. 0 04/14/2013 Active Comment: Take 1 tablet by mouth once daily. Ipratropium ipratropium bromide 10-29-2018 Torin Noyola [facility] (ATROVENT) 42 mcg (0.06 (441 95) [...] once daily. Spironolactone spironolactone 09-27-2019 [facility] (ALDACTONE) 25 mg (57916) tablet Indications: Essential hypertension Take 1 tablet by mouth once daily. 0 09/27/2019 Active Comment: Take 1 tablet by mouth once daily. zolpidem zolpidem (AMBIEN) 5 mg 12-01-2019 - More (Gripper Machine Operator) Older [facility] tablet Indications: 05-29-2020 (67701) Insomnia, unspecified type Take 1 tablet by mouth at bedtime as needed for Sedation for up to 180 days. FOR SLEEP 30 tablet 1 12/01/2019 05/29/2020 Active Comment: Take 1 tablet by mouth at be dtime as needed for Sedation for up to 180 days. FOR SLEEP Problems Active Problems Category Problem Name Status Date Location Acute myocardial Myocardial infarction Active 09-20-2019 - [facility] infarction (70013) Cardiac dysrhythmias Atrial fibrillation Active 01-10-2010 - [facility] (20437) Chronic obstructive Chronic obstructive Active 10-17-2009 - [facility] pulmonary disease and lung disease (89017 ) bronchiectasis Conduction disorders Automatic implantable Active 2008 - [facility] cardiac defibrillator (27788 ) in situ Coronary atherosclerosis Ischemic myocardial Active [facility] and other heart disease dysfunction (441 95) Disorders of lipid Mixed hyperlipidemia Active 01-22-2005 - C [facility] metabolism (37064) Essential hypertension Essential hypertension Active 11-11-19 [facility] (63013) External cause codes: Fall in (into) shower Active [facility] Fall or empty bathtub, (65482) initial encounter Other nutritional; Obese class I [facility] endocrine; and metabolic (44 195) disorders Residual codes; Obstructive sleep apnea Active 10-04-2007 - [facility] unclassified syndrome (11639) Spondylosis; Backache Active 03-10-2018 - [facility] intervertebral disc (92039) disorders; other back problems Transient cerebral Transient cerebral Active 09-20-2019 - [facility] ischemia ischemia (65300) Past or Other Problems Category Problem Name Status Date Location Other and [facility] unspecified benign - (38860) neoplasm Other circulatory History of cerebrovascular Completed [facility] disease accident - (39083) 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 - (441 95) Other screening for Electroencephalogram Completed 09-22-2019 [facility] suspected conditions abnormal - (10640) (not mental disorders or infectious disease) Pleurisy; Pleural plaque Completed 10-29-2018 [facility] marvin pneumothorax; - (75135) pulmonary collapse Residual codes; Insomnia Completed 06-30-2012 [facility] inic unclassified - (30790) Results Result Name Value Range Unit Interpretation Flag Date Location cnpn on 2020-01-16 CNPN Telephone (RGMOB) Normal 01-16-2020 [facility] ALEXIA MERIDA ([id number]) 1935 [facility] Time Provider Department (08673) 01/16/20 GUSTAVO WELLS V RGMOB During your visit today, we recorded the following informati on about you: Jose Juan Tracey Pss 01/16/2020 10:30 AM Signed Pt would like to have images and reports from XRs perf ormed on 01/13/2020 put onto a disk for turkey picker. PT informed to turkey picker in 24 Hrs at [facility]. 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 Ice Cream Freezer Helper: CODY Transcribe Date/Time: Jan 13 2020 3:18P Dictated by : BEBE SANCHEZ MD This examination was interpreted and the report reviewed and electronically signed by: BEBE SANCHEZ MD on Jan 13 2020 3:21PM EST [id number] xr rib/chst 3v ap rib/obl/chst l on 2020-01-13 XR RIB/CHST 3V AP * * *Final Report* * * Normal 01-13-2020 [place] RIB/OBL/CHST L DATE OF EXAM: Jan 13 2020 3:12PM Clinic WOX 5243 - XR RIB/CHST 3V AP RIB/OBL/CHST L / [id number] [place] PROCEDURE REASON: multiple diagnoses (40558) * * * * Physician Interpretation * [...] pleural thickening and/or loculated flu id, unchanged. Ice Cream Freezer Helper: [facility] Transcribe Date/Time: Jan 13 2020 3:15P Dictated by : Freya LANE MD This examination was interpreted and the report reviewed and electronically signed by: Freya LANE MD on Jan 13 2020 3:19PM EST [id number] progress on 2020-01 PROGRESS HNO ID: [id number] Normal 01-13-2020 [facility] Author: Sharon Gómez (Rt) Evelina Hodges [place] ([id number]) Service: ? Author Type: Pain Management Physician Type: Progress Notes Filed: 01/13/2020 3:12 PM [...] 13, 2020 3:12 PM PROGRESS HNO ID: [id number] Normal 01-13-2020 [facility] ([id number][facility] Service: ? Author Type: Nurse Practitioner Type: [...] 01/22/2005 Ruben Nash MD. [facility]. - CARD DEFIBRILL AUTO IMPLANT IN [...] - History of CVA (cerebrovascular accident) 06/04/2017 [facility]: Dr. Yan - Hypertrophy of prostate [...] RESULT 09/22/2019 - COLONOSCOP W/ OR W/O [facility] SPEC 06/12/10 - COLONOSCOP W/ OR W/O [facility] SPEC 06/26/2014 Colonoscopy - DESTR LESION BENIGN/PREMAL [...] 2020-01-13 CNOV Office Visit (UCWSTR) Normal 01-13-20 [place] [facility] ALEXIA MERIDA ([id number]) 1935 M [place] Date Time Provider Department ([id number]) 01/13/20 2:45 PM ROMINA TELLEZ (EMAIL MARKETING COORDINATOR) WSTR During your visit today, we recorded [...] - History of CVA (cerebrovascular accident) 06/04/2017 [facility]: Dr. Yan - Hypertrophy of prostate [...] RESULT 09/22/2019 - COLONOSCOP W/ OR W/O [facility] SPEC 06/12/10 - COLONOSCOP W/ OR W/O [facility] SPEC 06/26/2014 Colonoscopy - DESTR LESION BENIGN/PREMAL 06/10/06 SKs ablated x 4 - EGD W/O [facility] SPECIMEN W/BX 11/07/11 - EGD W/O OR [...] [M54.9] Order(s):XR RIBS/CHEST 3V AP RIB/OBLS/CXR LT [[id number]] Order #: [id number] FUTURE XR THORACIC LIMITED 2V AP/LAT [[id number]] Order #: [id number] FUTURE Prescriptions as of 01/13/2020 Sig: ZOLPIDEM [...] on 01/13/20 No panel information on 2020-01-13 [facility] (74464) progress on 2019-12 PROGRESS HNO ID: [id number] Normal 12-07-2019 [facility] Author: Luz (Rn) DONTE Mckinley [place] ([id number]) Service: ? Author Type: Registered Nurse Type: [...] his/her office dir ectly or by using [employer] to connect virtually. Thank you so much for your time today. It has been our pleas ure to work with you over these past couple of months. We are creating n ew programs at the [facility] that you may be eligible for, so you may be contacted in the future. Until then, be well!? Contact made with patient: Yes Patient identified by name and . Discussed care with spouse Hi my name is Luz Mckinley RN and I am calling from the [facility] on behalf of your PCP, Torin Noyola [...] like to speak with a social work head orthopedic team physician to help give you support for any [...] CNPTOUTREACH Patient Outreach (FAMPAM) Normal 0 12-07-2019 [place] [facility] MAGNOLIAALEXIA Paul ([id number]) 1935 M [place] Date Time Provider Department (59268) 12/07/19 LUZ MCKINLEY (RN) ANTWAN During your [...] his/he r office directly or by using [employer] to connect virtually. Thank you so much for your time today. It has been our pleasure to work with you over these past couple of months. We are creating new pr ograms at the [facility] that you may be eligible for, s o you may be contacted in the future. Until then, be well!? Contact made with patient: Yes Patient identified by name and . Discussed care with spouse Hi my name is Luz Mckinley RN and I am calling from the [facility] on behalf of your PCP, Torin [...] like to speak with a social work head orthopedic team physician to help give you support for any [...] Itching Date Reviewed: 12/01/2019 Reviewed by: More ([facility]) Older - Fully Assessed Reason for [...] 12/07/19 progress on 2019-11 PROGRESS HNO ID: [id number] Normal 12-01-2019 [facility] Author: More (Gripper Machine Operator) [facility] ([id number]) Service: ? Author Type: Nurse Practitioner Type: [...] - History of CVA (cerebrovascular accident) 06/04/2017 [facility]: Dr. Yan - Hypertrophy of prostate [...] RESULT 09/22/2019 - COLONOSCOP W/ OR W/O [facility] SPEC 06/12/10 - COLONOSCOP W/ OR W/O [facility] SPEC 06/26/2014 Colonoscopy - DESTR LESION BENIGN/PREMAL [...] I48.91 stable 7. Coronary artery disease involving [place] coronary artery of [place] heart without angina pectoris - ICD9: 414.01, [...] 2019-12-01 CNOV Office Visit (INTMWS) Normal 12-01-19 [place] [facility] ALEXIA MERIDA ([id number]) 1935 M [place] Date Time Provider Department ([id number]) 12/01/19 3:40 PM MORE MANN (RAUL) INTMWS During your visit today, we recorded the following informati on about you: Temperature Pulse Respiration Blood pressure 97.4 degrees 76/minute 16/minute 120/80 Weight 88.5 kg More Mann TECH BRAZER TESTERGINA 12/01/2019 4:12 PM Signed CC: Patient presents with: Follow Up HPI Alexia Merida is a 84 year old male who presents today for above. Patient had rotator cuff surgery 11/01. Doing really well, pain has resolv ed and ROM restored. Currently in PT, follow-up [facility] h surgeon scheduled in a couple [...] 01/22/2005 Ruben Nash MD. [facility]. - CARD DEFIBRILL AUTO IMPLANT IN [...] - History of CVA (cerebrovascular accident) 06/04/2017 [facility]: Dr. Yan - Hypertrophy of prostate [...] RESULT 09/22/2019 - COLONOSCOP W/ OR W/O [facility] SPEC 06/12/10 - COLONOSCOP W/ OR W/O [facility] SPEC 06/26/2014 Colonoscopy - DESTR LESION BENIGN/PREMAL [...] I48.91 stable 7. Coronary artery disease involving [place] coronary arter y of [place] heart without angina pectoris - ICD9: 414.01, [...] at your pharmacy Referring Provider: TORIN NOYOLA [[id number]] Allergies As of Date: 12/01/2019 Noted Allergy [...] type (HCC) [I48.91] Coronary artery disease involving [place] coronary artery of [place] heart without angina pectoris [I25.10] Chronic obstructive [...] 12/01/19 progress on 2019-11 PROGRESS HNO ID: [id number] Normal 11-30-2019 [facility] Author: Susana Hartmann (Network Navigator) Luz ([id number]) Service: ? Author Type: Paper Sorter Type: Progress Notes Filed: 11/30/2019 2:02 PM [...] CNPTOUTREACH Patient Outreach (AMBCMG) Normal 0 11-30-2019 [place] [facility] ALEXIA MERIDA ([id number]) 1935 M [place] Date Time Provider Department ([id number]) 11/30/19 SUSANA ESCOBARNETWORK NAVIGATOR)[facility] During your visit today, we recorded the [...] electroencephalogram (EEG) [R94.01] 09/22/2019 Encounter Status:Closed by Teros NETWORK NAVIGATOR, RADHA Hartmann on 11/30/19 progress on 2019-11 PROGRESS HNO ID: [id number] Normal 11-02-2019 [facility] Author: Cecilia Paredes ([id number]) Service: ? Author Type: Registered Nurse Type: Progress Notes Filed: 11/02/2019 1:01 PM Note Text: HIGH RISK CHRONIC DISEASE MONITORING Provider Action/FYI: Pt admitted to [facility] today for orthopedic surgery Contact made with patient: No - Unable to leave message - en tered next patient outreach date for the following week on the same iness day in Track Pt. Outreach - End Outreach Outreach ended cnptoutreach on CNPTOUTREACH Patient Outreach (INTMWS) Normal 0 11-02-2019 [place] [facility] ALEXIA MERIDA ([id number]) 1935 [facility] Date Time Provider Department (39287) 11/02/19 CECILIA KATZ During your visit today, we recorded the following informati on about you: Cecilia Cardoza RN 11/02/2019 1:01 PM Signed HIGH RISK CHRONIC DISEASE MONITORING Provider Action/FYI: Pt admitted to [facility] today for orthopedic surgery Contact made with [...] 11/02/19 progress on 2019-10 PROGRESS HNO ID: [id number] Normal 10-25-2019 [facility] Author: Irene (Rn) DONTE Jackson ([id number]) Service: ? Author Type: Registered Nurse Type: Progress Notes Filed: 10/25/2019 3:26 PM Note Text: . PROGRESS HNO ID: [id number] Normal 10-25-2019 [facility] Author: Susana ContrerasNetwork Navigator) Luz ([id number]) Service: ? Author Type: Paper Sorter Type: Progress Notes Filed: 10/25/2019 12:55 PM Note Text: HIGH RISK CHRONIC DISEASE MONITORING Provider Action/FYI: Call in 1 week Contact made with patient: No - Unable to leave message - en tered next patient outreach date for the following week on the same in Track Pt. Outreach - End Outreach Outreach ended cnptoutreach on CNPTOUTREACH Patient Outreach (AMBCMG) Normal 0 10-25-2019 [place] [facility] ALEXIA MERIDA ([id number]) 1935 [facility] Date Time Provider Department ([id number]) 10/25/19 SUSANA ESCOBARNETWORK NAVIGATOR)AMBMICHELLE During your visit [...] 10/25/19 progress on 2019-10 PROGRESS HNO ID: [id number] Normal 10-17-2019 [facility] Author: Torin Noyola [place] ([id number]) Service: ? Author Type: Physician Type: Progress Notes Filed: 10/17/2019 3:15 PM Note Text: This note was created using Dexterrariter. Subjective Patient presents with: Preop Clearance: Right [...] arthroplasty October 31. He was admitted in [place] on e month ago for transient ischemic attack, non STEMI. Information from [facility] is limited. He has been doing well, and wishes to proceed with surgery. He was scheduled to see his galley cook in [place] tomorrow. S urgery will be in [place]. Review of Systems Constitutional: Negative for appetite [...] - History of CVA (cerebrovascular accident) 06/04/2017 [facility]: Dr. Yan - Hypertrophy of prostate [...] Take 1 tablet by mouth at be dtiak as needed for Sedation for up to [...] 6 months. I will defer to his galley cook. See printed instructions or information. See f acsimile form for [facility]. 2. Non-ST elevated myocardial infarction (HCC) - ICD9: 410.7 0, ICD10: I21.4 Per [facility] cardiology. 3. Cardiomyopathy, ischemic - ICD9: 414.8, ICD10: I25.5 Per [facility] cardiology. 4. Transient ischemic attack (TIA) - ICD9: 435.9, ICD10: G45 .9 See #1. 5. Abnormal electroencephalogram (EEG) - ICD9: 794.02, ICD10 : R94.01 He was advised to follow up with neurology. Torin Noyola MD cnov on 2019-10-17 CNOV Office Visit (INTMWS) Normal 10-17-[address] [place] [address] [facility] MAGNOLIAALEXIA Paul ([id number]) 1935 [facility] Date Time Provider Department ([id number]) 10/17/19 2:20 PM TORIN NOYOLA INTMWS During your visit today, we recorded the following informati on about you: Torin Noyola MD 10/17/2019 3:15 PM Signed This note was created using Dexterrariter. Subjective Patient presents with: Preop Clearance: Right reverse total shoulder arthroplasty, 11/01/2019, Dr. Jose Tan Consultation requested by Dr. Tan for an opinion regardin g preoperative risk. My final recommendations will be communicated back to the requesting physician by way of shared edical record or letter to requesting physician via US mail. Alexia Miller Mangolia was surprisingly scheduled for right rever se total shoulder arthroplasty October 31. He was admitted in [place] one m onth ago for transient ischemic attack, non STEMI. Information from [place] i s limited. He has been doing well, and wishes to proceed with surgery. He was cyn eduled to see his galley cook in [place] tomorrow. Surgery will be in [place] . Review of Systems Constitutional: Negative for [...] 01/22/2005 Ruben Nash MD. [facility]. - CARD DEFIBRILL AUTO IMPLANT IN [...] - History of CVA (cerebrovascular accident) 06/04/2017 [facility]: Dr. Yan - Hypertrophy of prostate [...] 6 months. I will defer to his galley cook. See printed instructions or information. See facsimile form for [facility]. 2. Non-ST elevated myocardial infarction (HCC) [...] 5-6 months. I will defer to your galley cook for clearance. Referring Provider: JOSE TAN [[id number]] Allergies As of Date: 10/17/2019 Noted Allergy [...] 5-6 months. I will defer to your galley cook for clearance. Encounter Status:Closed by TORIN NOYOLA MD on 10/17/19 xr chest 2 views on 2019-10-10 XR CHEST 2 ORIGINAL Normal 10-10-2019 [facility] VIEWS XR CHEST 2 VIEWS [place]ou [place] ([place]) ([id number]) CLINICAL STATEMENT: Pre-admi ssion testing , patient [...] Erythrocyte distribution 14.0 11.5-14.5 % Normal 10-09 [facility] width (RBC) [Ratio] [place] ([place]) (18162) Comment: Order Comment: Pre-Admission Testing Performed By: #### APTT, PRO #### [address] [address] Hematocrit (Bld) [Volume 39.3 42.0-52.0 % Low 10-09 [facility] fraction] ([place]) (0000 0) Comment: Order Comment: Pre-Admission Testing Performed By: #### APTT, PRO #### [address] [address] Hemoglobin (Bld) 13.1 14.0-18.0 G/dL Low 10-10-2019 [facility] [Mass/Vol] ([place]) (000 00) Comment: Order Comment: Pre-Admission Testing Performed By: #### APTT, PRO #### [address] [address] MCH (RBC) [Entitic mass] 31.8 27.0-31.2 pg High 10-09 [facility] ([place]) (0000 0) Comment: Order Comment: Pre-Admission Testing Performed By: #### APTT, PRO #### [address] [address] MCHC (RBC) [Mass/Vol] 33.5 31.8-35.4 G/dL Normal 10-10-19 20 [facility] ([place]) (0000 0) Comment: Order Comment: Pre-Admission Testing Performed By: #### APTT, PRO #### [address] [address] MCV (RBC) [Entitic vol] 94.9 80.0-94.0 fL High 2019 [facility] ([place]) (0000 0) Comment: Order Comment: Pre-Admission Testing Performed By: #### APTT, PRO #### [address] [address] Platelet mean volume 8.7 7.4-10.4 fL Normal 0 [facility] (Bld) [Entitic vol] ([place]) (68726) Comment: Order Comment: Pre-Admission Testing Performed By: #### APTT, PRO #### [address] [address] Platelets (Bld) [#/Vol] 221 130-400 10 3/mcL Normal 2019 [facility] ([place]) (65609) Comment: Order Comment: Pre-Admission Testing Performed By: #### APTT, PRO #### [address] [address] RBC (Bld) [#/Vol] 4.14 4.04-6.13 10 6/mcL Normal 10-10-2019 A [facility] ([place]) (0000 0) Comment: Order Comment: Pre-Admission Testing Performed By: #### APTT, PRO #### [address] [address] WBC (Bld) [#/Vol] 5.30 4.60-10.80 10 3/mcL Normal 10-10-2019 [facility] ([place]) (94309) Comment: Order Comment: Pre-Admission Testing Performed By: #### APTT, PRO #### [address] [address] bmp on 2019-10-10 Calcium [Mass/Vol] 9.0 8.4-10.2 mg/dL Normal 10-10-2019 [facility] ([place]) (0000 0) Comment: Performed By: #### APTT, PRO #### [address] [address] Chloride [Moles/Vol] 104 98-107 mmol/L Normal 0 [facility] ([place]) (0000 0) Comment: Performed By: #### APTT, PRO #### [address] [address] CO2 [Moles/Vol] 30 23-31 mmol/L Normal 10-10-2019 [facility] ([place]) ([address]757) Comment: Performed By: #### APTT, PRO #### [address] [address] Creatinine [Mass/Vol] 1.12 0.70-1.30 mg/dL Normal 10-10-19 20 [facility] ([place]) (96529) Comment: Performed By: #### APTT, PRO #### [address] [address] Electrolyte Balance 7.0 mEq/L Normal 10-10-2019 [facility] ([place]) (47535) Comment: Performed By: #### APTT, PRO #### [address] [address] Glucose [Mass/Vol] 92 83-110 mg/dL Normal 10-10-2019 [facility] ([place]) ([address]) Comment: Performed By: #### APTT, PRO #### [facility] [address] [place] [address] Potassium [Moles/Vol] 4.7 3.5-5.1 mmol/L Normal 10-10-19 [facility] ([place]) (0000 0) Comment: Performed By: #### APTT, PRO #### [facility] [address] [place] [address] Sodium [Moles/Vol] 141 136-145 mmol/L Normal 10-10-2019 [facility] ([place]) (0000 0) Comment: Performed By: #### APTT, PRO #### [address] [address] Urea nitrogen [Mass/Vol] 15 7-18 mg/dL Normal 10-09 [facility] ([place]) (0000 0) Comment: Performed By: #### APTT, PRO #### [address] [address] Urea nitrogen/Creatinine [Mass 13 7-27 ratio Normal 10-10-2019 [facility] ratio] [facility] ([place]) ([address]52) Comment: Performed By: #### APTT, PRO #### [address] [address] .neuabs on Neutrophils (Bld) 3.80 2.85-6.16 10 3/mcL Normal 10-10-2019 [facility] [#/Vol] [facility] ([place]) (19067) Comment: Performed By: #### APTT, PRO #### [address] [address] .gfr on 2019-10-10 GFR 76 ml/min/1.73sqm Normal [facility] ([place]) (0000 0) Comment: Result Comment: GFR Population mean for Afri can [place], Non- Americans Ages 20-29 = 116 mL/min/1.73 [...] meters Performed By: #### APTT, PRO #### [address] [address] GFR Non- 63 ml/min/1.73sqm Normal 10-10-2019 [facility] ([place]) ([address]22) Comment: Result Comment: GFR Population mean for Afri can [place], Non- Americans Ages 20-29 = 116 mL/min/1.73 [...] meters Performed By: #### APTT, PRO #### [address] [address] .auto diff on 10-09 Ammonia (P) [Mass/Vol] 0.50 0.15-1.00 10 3/mcL Normal 020 [facility] ([place]) ([address]14) Comment: Performed By: #### APTT, PRO #### [address] [address] Basophils (Bld) 0.10 0.00-0.19 10 3/mcL Normal 10-10-2019 [facility] [#/Vol] [facility] ([place]) (61423) Comment: Performed By: #### APTT, PRO #### [address] [address] Basophils/100 WBC (Bld) 1.3 0.0-2.5 % Normal 2019 [facility] ([place]) (0000 0) Comment: Performed By: #### APTT, PRO #### [address] [address] Eosinophils (Bld) 0.10 0.00-0.40 10 3/mcL Normal 10-10-2019 [facility] [#/Vol] [facility] ([place]) (93265) Comment: Performed By: #### APTT, PRO #### [address] [address] Eosinophils/100 WBC (Bld) 2.4 0.0-7.0 % Normal -0 -2019 [facility] ([place]) (0000 0) Comment: Performed By: #### APTT, PRO #### [address] [address] Lymphocytes (Bld) 0.80 0.77-3.85 10 3/mcL Normal 10-10-2019 [facility] [#/Vol] [facility] ([place]) (36135) Comment: Performed By: #### APTT, PRO #### [address] [address] Lymphocytes/100 WBC (Bld) 14.3 10.0-50.0 % Normal - [facility] ([place]) (53010) Comment: Performed By: #### APTT, PRO #### [address] [address] Monocytes/100 WBC (Bld) 10.2 1.7-13.0 % Normal 2019 [facility] ([place]) (0000 0) Comment: Performed By: #### APTT, PRO #### [address] [address] Neutrophils/100 WBC (Bld) 71.8 37.0-80.0 % Normal [facility] ([place]) ([address]98) Comment: Performed By: #### APTT, PRO #### [address] [address] progress on 2019-10 PROGRESS HNO ID: [id number] Normal 10-04-2019 [facility] Author: Ceciliapaul Paredes [place] ([id number]) Service: ? Author Type: Registered Nurse Type: Progress Notes Filed: 10/04/2019 1:19 PM Note Text: HIGH RISK CHRONIC DISEASE MONITORING Provider Action/FYI: Pt covered by TCM post hospitalization. Seeing [facility] 10/16 Contact made with patient: No - Unable to leave message - en tered next patient outreach date for the following week on the same in Track Pt. Outreach - End Outreach- NO CALL Outreach ended cnptoutreach on CNPTOUTREACH Patient Outreach (INTMWS) Normal 0 10-04-2019 [place] [facility] ALEXIA MERIDA ([id number]) 1935 [facility] Date Time Provider Department ([id number]) 10/04/19 CECILIA KATZ During your visit today, we recorded the following informati on about you: Cecilia Cardoza RN 10/04/2019 1:19 PM Signed HIGH RISK CHRONIC DISEASE MONITORING Provider Action/FYI: Pt covered by TCM post hospitalization. Seeing [facility] 10/16 Contact made with patient: No - [...] 10/04/19 progress on 2019-09 PROGRESS HNO ID: [id number] Normal 09-27-2019 [facility] Author: Patience Campbell [facility] ([id number]) Service: ? Author Type: ? Type: Progress Notes Filed: 10/06/2019 9:15 AM Note Text: TRANSITION CARE MANAGEMENT (TCM) INITIAL CONTACT Paper Sorter Outreach Provider Action/FYI: Initial contact with patient post discharge, spoke to jigar woodard Patient identified by name and . TRANSITION CARE MANAGEMENT INITIAL OUTREACH DOCUMENTATION: Date of Outreach: 09/27/2019 09/22/2019 Outreach Attempt 1: Contact Made Contact Not Made Date of Discharge 09/22/2019 09/21/2019 Some recent data might be hidden SUMMARY: -Pt discharged from [facility] on 09/22/19. -Admitted for: CVA Do you have a hospital follow up appointment with your PCP? Appointment on 10/17/19 with pcp form a pre op appt clearance . Pt says surgery is still scheduled at this time. He has PAT at [facility] 10/10/19. pcp to get these results. Pt is seeing is [facility]ol[facility]. Pt says he is seeing Orthopedic [...] CNPTOUTREACH Patient Outreach (INTMWS) Normal 0 09-27-2019 [place] [facility] ALEXIA MERIDA ([id number]) 1935 [facility] Date Time Provider Department ([id number]) 09/27/19 TORIN NOYOLA INTMWS During your visit today, we recorded the following informati on about you: Patience Campbell LPN 10/06/2019 9:15 AM Signed TRANSITION CARE MANAGEMENT (TCM) INITIAL CONTACT Paper Sorter Outreach Provider Action/FYI: Initial contact with patient post discharge, spoke to jigar woodard Patient identified by name and . TRANSITION CARE MANAGEMENT INITIAL OUTREACH DOCUMENTATION: Date of Outreach: 09/27/2019 09/22/2019 Outreach Attempt 1: Contact Made Contact Not Made Date of Discharge 09/22/2019 09/21/2019 Some recent data might be hidden SUMMARY: -Pt discharged from [facility] on 09/22/19. -Admitted for: CVA Do you have a hospital follow up appointment with your PCP? Appointment on 10/17/19 with pcp form a pre op appt clearance . Pt says surgery is still scheduled at this time. He has PAT at [facility] 10/10/19. pcp to get these results. Pt is seeing is cardiolist Dr. Jones in the [place] office 10/18/19. Pt says he is seeing [...] OBSOLETE Refill (INTMWS) Normal 09-23-2019 [facility] ALEXIA MERIDA ([id number]) 1935 [facility] Date Time Provider Department ([id number]) 09/23/19 TORIN NOYOLA INTMWS During your visit [...] regarding recent cerebral vascular accident and acute AZ. Lisinopril dose not changed on discha rge. [...] 09/24/19 progress on 2019-09 PROGRESS HNO ID: [id number] Normal 09-22-2019 [facility] Author: Mary Burgos LPN ([id number]) Service: ? Author Type: ? Type: Progress [...] stay. Mary Burgos LPN PROGRESS HNO ID: [id number] Normal 09-22-2019 [facility] Author: Patience Campbell LPN ([id number]) Service: ? Author Type: ? Type: Progress Notes Filed: 09/22/2019 4:14 PM Note Text: 1. Message left for pt to return call to a nurse to complete TCM note. rec'd records from [facility] regarding admission. No d/c summa ry yet. 2. Pt is scheduled for an in office appt with Dr. [place]. Mandy melchor review with pt. This can be cancelled and arrange TCM with pcp. pcp has available time to see pt. pro on 2019-09-22 INR Coag (PPP) [Relative 1.0 ratio Normal 09-21 [facility] time] ([place]) (0000 0) Comment: Result Comment: The [place] [employer] [employer] (CHEST, 1992, 102:312S-25S) recommended therapeutic rang e for oral anticoagulant therapy is: LOW RISK: Prophylaxis of manfred ous thrombosis INR: 2.0-3.0 Treatment of pulmonary embol ism 2.0-3.0 Prevention of systemic embol ism 2.0-3.0 HIGH RISK: Mechanical prosth etic valves 2.5-3.5 Performed By: #### APTT, PRO #### [facility] [address] [place] [address] PT Coag (PPP) [Time] 11.9 9.0-14.6 seconds Normal 0 [facility] ([place]) ([address]64) Comment: Result Comment: Effective , Protime results may be affected by some antibiotics (i.e. Ciprofloxa joshua, Azithromycin, Bactrim) which may potentiate the action of oral anticoagu lants, with further increases in Protime/INR. Performed By: #### APTT, PRO #### [facility] [address] [place] [address] mg on 2019-09-22 Magnesium [Mass/Vol] 2.3 1.6-2.4 mg/dL Normal 0 [facility] ([place]) (0000 0) Comment: Performed By: #### APTT, PRO #### [facility] [address] [place] [address] cnptoutreach on CNPTOUTREACH Patient Outreach (INTMWS) Normal 0 09-22-2019 [place] ALEXIA Perera ([id number]) 1935 [place] Date Time Provider Department ([id number]) 09/22/19 TORIN NOYOLA INTMWS During your visit today, we recorded the following informati on about you: Patience Campbell LPN 09/22/2019 4:14 PM Signed 1. Message left for pt to return call to a nurse to co mplete TCM note. rec'd records from [facility] regarding admission. No d/c summary yet . [...] Erythrocyte distribution 13.9 11.5-15.5 % Normal 09-21 [facility] width (RBC) [Ratio] [facility] ([place]) (50180) Comment: Performed By: #### APTT, PRO #### [address] [address] Hematocrit (Bld) [Volume 40.2 40.0-52.0 % Normal 09-21 [facility] fraction] ([place]) (0000 0) Comment: Performed By: #### APTT, PRO #### [address] [address] Hemoglobin (Bld) 13.7 13.0-17.5 G/dL Normal 09-22-2019 [facility] [Mass/Vol] [facility] ([place]) (14976) Comment: Performed By: #### APTT, PRO #### [address] [address] MCH (RBC) [Entitic mass] 32.2 27.0-33.0 pg Normal 09-21 [facility] ([place]) (0000 0) Comment: Performed By: #### APTT, PRO #### [address] [address] MCHC (RBC) [Mass/Vol] 34.1 32.0-36.0 G/dL Normal 09-22-19 [facility] ([place]) (0000 0) Comment: Performed By: #### APTT, PRO #### [address] [address] MCV (RBC) [Entitic vol] 94.5 81.0-100.0 fL Normal 09-21 [facility] ([place]) (0000 0) Comment: Performed By: #### APTT, PRO #### [address] [address] Platelet mean volume 8.3 6.4-10.5 fL Normal 0 [facility] (Bld) [Entitic vol] ([place]) (63520) Comment: Performed By: #### APTT, PRO #### [address] [address] Platelets (Bld) [#/Vol] 222 150-450 10 3/mcL Normal 2019 [facility] ([place]) (69231) Comment: Performed By: #### APTT, PRO #### [address] [address] RBC (Bld) [#/Vol] 4.25 4.50-6.00 10 6/mcL Low 09-22-2019 [facility] ([place]) (0000 0) Comment: Performed By: #### APTT, PRO #### [address] [address] WBC (Bld) [#/Vol] 6.30 4.50-10.80 10 3/mcL Normal 09-22-2019 [facility] ([place]) (25001) Comment: Performed By: #### APTT, PRO #### [place] [id number] Erythrocyte distribution 13.5 11.5-15.5 % Normal 09-21 [facility] (RBC) [Ratio] [facility] ([place]) (88286) Comment: Performed By: #### APTT, PRO #### [address] [address] Hematocrit (Bld) [Volume 36.0 40.0-52.0 % Low 09-21 [facility] fraction] ([place]) (0000 0) Comment: Performed By: #### APTT, PRO #### [address] [address] Hemoglobin (Bld) 12.2 13.0-17.5 G/dL Low 09-22-2019 [facility] [Mass/Vol] ([place]) (000 00) Comment: Performed By: #### APTT, PRO #### [address] [address] MCH (RBC) [Entitic mass] 32.3 27.0-33.0 pg Normal 09-21 [facility] ([place]) (0000 0) Comment: Performed By: #### APTT, PRO #### [place] [address] MCHC (RBC) [Mass/Vol] 33.9 32.0-36.0 G/dL Normal 09-22-19 20 [facility] ([place]) (0000 0) Comment: Performed By: #### APTT, PRO #### [place] [id number] MCV (RBC) [Entitic vol] 95.4 81.0-100.0 fL Normal 09-21 [facility] ([place]) (0000 0) Comment: Performed By: #### APTT, PRO #### [place] [address] Platelet mean volume 8.3 6.4-10.5 fL Normal 0 [facility] (Bld) [Entitic vol] ([place]) (29068) Comment: Performed By: #### APTT, PRO #### [address] [address] Platelets (Bld) [#/Vol] 191 150-450 10 3/mcL Normal 2019 [facility] ([place]) (99064) Comment: Performed By: #### APTT, PRO #### [place] [id number] RBC (Bld) [#/Vol] 3.77 4.50-6.00 10 6/mcL Low 09-22-2019 A [facility] ([place]) (0000 0) Comment: Performed By: #### APTT, PRO #### [address] [address] WBC (Bld) [#/Vol] 6.30 4.50-10.80 10 3/mcL Normal 09-22-2019 [facility] ([place]) (79099) Comment: Performed By: #### APTT, PRO #### [address] [address] bmp on 2019-09-22 Creatinine [Mass/Vol] 0.96 0.60-1.40 mg/dL Normal 09-22-19 20 [facility] ([place]) (80613) Comment: Performed By: #### APTT, PRO #### [address] [address] Urea nitrogen/Creatinine 15.6 10.0-22.0 ratio Normal 09-21 [facility] [Mass ratio] [place] ([place]) (23353) Comment: Performed By: #### APTT, PRO #### [address] [address] Calcium [Mass/Vol] 8.6 8.4-10.1 mg/dL Normal 09-22-2019 [facility] ([place]) (0000 0) Comment: Performed By: #### APTT, PRO #### [address] [address] Chloride [Moles/Vol] 108 98-110 mEq/L Normal 0 [facility] ([place]) (0000 0) Comment: Performed By: #### APTT, PRO #### [address] [address] CO2 [Moles/Vol] 23 22-32 mEq/L Normal 09-22-2019 [facility] ([place]) (83672) Comment: Performed By: #### APTT, PRO #### [address] [address] Electrolyte Balance 9.0 4.0-15.0 mEq/L Normal 09-22-2019 [facility] ([place]) (0000 0) Comment: Performed By: #### APTT, PRO #### [address] [address] Glucose [Mass/Vol] 103 82-115 mg/dL Normal 09-22-2019 [facility] ([place]) (13308) Comment: Performed By: #### APTT, PRO #### [address] [address] Potassium [Moles/Vol] 3.5 3.5-5.0 mEq/L Normal 09-22-19 20 [facility] ([place]) (0000 0) Comment: Performed By: #### APTT, PRO #### [address] [address] Sodium [Moles/Vol] 140 136-145 mEq/L Normal 09-22-2019 [facility] ([place]) (57065) Comment: Performed By: #### APTT, PRO #### [address] [address] Urea nitrogen [Mass/Vol] 15.0 8.0-22.0 mg/dL Normal 09-21 [facility] ([place]) (82111) Comment: Performed By: #### APTT, PRO #### [address] [address] aptt on 2019-09-22 aPTT Coag (Bld) 30.6 25.0-35.0 seconds Normal 09-22-2019 [facility] [Time] [facility] ([place]) (89686) Comment: Result Comment: For Heparin anticoagulation therapy, the recommended therapeutic range is: 54-77 seconds (APTT Correlation with Anti-Xa therapeutic ran ge of 0.3-0.7 units/ml). PLEASE REFERENCE THE PHARMAC Y PROTOCOL FOR DOSING. Performed By: #### APTT, PRO #### [address] [address] aPTT Coag (Bld) [Time] Heparin IV Normal 2019 [facility] ([place]) (0000 0) Comment: Performed By: #### APTT, PRO #### [address] [address] .neuabs on Neutrophils (Bld) 4.70 2.25-8.10 10 3/mcL Normal 09-22-2019 A [facility] [#/Vol] [facility] ([place]) (02444) Comment: Performed By: #### APTT, PRO #### [address] [address] Neutrophils (Bld) 4.50 2.25-8.10 10 3/mcL Normal 09-22-2019 [facility] [#/Vol] [facility] ([place]) (10601) Comment: Performed By: #### APTT, PRO #### [facility] [address] [place] [address] .gfr on 2019-09-22 GFR >60 Normal 09-21- 0 [facility] ([place]) (86956) Comment: Result Comment: GFR Population mean for Afri can [place], Non- Americans Ages 20-29 = 116 mL/min/1.73 [...] meters Performed By: #### APTT, PRO #### [facility] [address] [place] [address] GFR Non- >60 Normal 09-21 [facility] ([place]) (05409) Comment: Result Comment: GFR Population mean for Afri can [place], Non- Americans Ages 20-29 = 116 mL/min/1.73 [...] meters Performed By: #### APTT, PRO #### [facility] [address] [place] [address] .auto diff on 09-21 Ammonia (P) [Mass/Vol] 0.60 0.09-1.40 10 3/mcL Normal 020 [facility] ([place]) (82095) Comment: Performed By: #### APTT, PRO #### [address] [address] Basophils (Bld) 0.10 0.00-0.27 10 3/mcL Normal 09-22-2019 [facility] [#/Vol] [facility] ([place]) (60699) Comment: Performed By: #### APTT, PRO #### [address] [address] Basophils/100 WBC (Bld) 0.9 0.0-2.5 % Normal 2019 [facility] ([place]) (0000 0) Comment: Performed By: #### APTT, PRO #### [address] [address] Eosinophils (Bld) 0.20 0.00-0.65 10 3/mcL Normal 09-22-2019 A [facility] [#/Vol] [facility] ([place]) (18239) Comment: Performed By: #### APTT, PRO #### [address] [address] Eosinophils/100 WBC (Bld) 2.7 0.0-6.0 % Normal 09-02 [facility] ([place]) (0000 0) Comment: Performed By: #### APTT, PRO #### [address] [address] Lymphocytes (Bld) 0.80 0.90-4.32 10 3/mcL Low 09-22-2019 [facility] [#/Vol] [facility] ([place]) (81582) Comment: Performed By: #### APTT, PRO #### [address] [address] Lymphocytes/100 WBC (Bld) 12.9 20.0-40.0 % Low 09-02 [facility] ([place]) (0000 0) Comment: Performed By: #### APTT, PRO #### [address] [address] Monocytes/100 WBC (Bld) 9.5 2.0-13.0 % Normal 2019 [facility] ([place]) (0000 0) Comment: Performed By: #### APTT, PRO #### [address] [address] Neutrophils/100 WBC (Bld) 74.0 50.0-75.0 % Normal 09-02 [facility] ([place]) (65200) Comment: Performed By: #### APTT, PRO #### [address] [address] Ammonia (P) [Mass/Vol] 0.70 0.09-1.40 10 3/mcL Normal 020 [facility] ([place]) (18648) Comment: Performed By: #### APTT, PRO #### [address] [address] Basophils (Bld) 0.00 0.00-0.27 10 3/mcL Normal 09-22-2019 [facility] [#/Vol] [facility] ([place]) (78575) Comment: Performed By: #### APTT, PRO #### [address] [address] Basophils/100 WBC (Bld) 0.6 0.0-2.5 % Normal 2019 [facility] ([place]) (0000 0) Comment: Performed By: #### APTT, PRO #### [address] [address] Eosinophils (Bld) 0.20 0.00-0.65 10 3/mcL Normal 09-22-2019 [facility] [#/Vol] [facility] ([place]) (67596) Comment: Performed By: #### APTT, PRO #### [address] [address] Eosinophils/100 WBC (Bld) 2.9 0.0-6.0 % Normal 09-02 [facility] ([place]) (0000 0) Comment: Performed By: #### APTT, PRO #### [address] [address] Lymphocytes (Bld) 0.90 0.90-4.32 10 3/mcL Normal 09-22-2019 [facility] [#/Vol] [facility] ([place]) (35801) Comment: Performed By: #### APTT, PRO #### [place] 7[address]30 [address] [place] [address] Lymphocytes/100 WBC (Bld) 14.5 20.0-40.0 % Low - [facility] ([place]) (0000 0) Comment: Performed By: #### APTT, PRO #### [address] [address] Monocytes/100 WBC (Bld) 10.4 2.0-13.0 % Normal 2019 [facility] ([place]) (0000 0) Comment: Performed By: #### APTT, PRO #### [address] [address] Neutrophils/100 WBC (Bld) 71.6 50.0-75.0 % Normal - [facility] ([place]) (31032) Comment: Performed By: #### APTT, PRO #### [address] [address] tropi on 2019-09-21 Troponin I.cardiac 2.120 0.000-0.040 ng/mL [facility] 0 [facility] [Mass/Vol] [facility] [facility] [place] ([address]315) Comment: Result Comment: Troponin I r eference ranges (01/09/14): 0.00-0.040 ng/mL Negative an d non-diagnostic. >0.040 ng/mL Consistent with cardiac damage, increased clinical risk and possibility of myocardial in farction. Serial measurements, a rise & fall in test results, clinical histo ry, appropriate symptoms and/or ECG changes may help assess possibility of AZ. *Other non-acute coronary sy ndrome conditions such as CHF, myoc arditis, pulmonary emboli, sepsis and cardiac surgery could result in myoc ardial damage and increased troponi n levels. Performed By: #### APTT, PRO #### [facility] [address] [place] [address] Troponin I.cardiac 2.180 0.000-0.040 ng/mL High 0 [facility] [employer] [Mass/Vol] [facility] ([place] (40472) Comment: Result Comment: Troponin I r eference ranges (01/09/14): 0.00-0.040 ng/mL Negative an d non-diagnostic. >0.040 ng/mL Consistent with cardiac damage, increased clinical risk and possibility of myocardial in farction. Serial measurements, a rise & fall in test results, clinical histo ry, appropriate symptoms and/or ECG changes may help assess possibility of AZ. *Other non-acute coronary sy ndrome conditions such as CHF, myoc arditis, pulmonary emboli, sepsis and cardiac surgery could result in myoc ardial damage and increased troponi n levels. Performed By: #### TROPI ### # [address] [address] Troponin I.cardiac 2.690 0.000-0.040 ng/mL High 0 Only [employer] [Mass/Vol] [employer] ([place]) (06873) Comment: Result Comment: Troponin I r eference ranges (01/09/14): 0.00-0.040 ng/mL Negative an d non-diagnostic. >0.040 ng/mL Consistent with cardiac damage, increased clinical risk and possibility of myocardial in farction. Serial measurements, a rise & fall in test results, clinical histo ry, appropriate symptoms and/or ECG changes may help assess possibility of AZ. *Other non-acute coronary sy ndrome conditions such as CHF, myoc arditis, pulmonary emboli, sepsis and cardiac surgery could result in myoc ardial damage and increased troponi n levels. Performed By: #### TROPI ### # [address] [address] mg on 2019-09-21 Magnesium [Mass/Vol] 2.4 1.6-2.4 mg/dL Normal 0 [facility] ([place]) (0000 0) Comment: Performed By: #### CBC, ADIF F, ANEU, MG, BMP, GFR #### [address] [address] [address] head or brain w/o contrast on 2019-09-21 CT HEAD OR BRAIN ORIGINAL Normal 09-21-2019 [facility] W/O CONTRAST Head CT [place] ([place]) (65047) INDICATION: stroke f/u COMPARISON: Outside CT previous [...] Erythrocyte distribution 13.4 11.5-15.5 % Normal 09-20 [facility] width (RBC) [Ratio] [facility] ([place]) (70768) Comment: Performed By: #### CBC, ADIF F, ANEU, MG, BMP, GFR #### [address] [address] Hematocrit (Bld) [Volume 37.1 40.0-52.0 % Low 09-20 [facility] fraction] ([place]) (0000 0) Comment: Performed By: #### CBC, ADIF F, ANEU, MG, BMP, GFR #### [address] [address] Hemoglobin (Bld) 12.9 13.0-17.5 G/dL Low 09-21-2019 [facility] [Mass/Vol] ([place]) (000 00) Comment: Performed By: #### CBC, ADIF F, ANEU, MG, BMP, GFR #### [address] [address] MCH (RBC) [Entitic mass] 32.2 27.0-33.0 pg Normal 09-20 [facility] ([place]) (0000 0) Comment: Performed By: #### CBC, ADIF F, ANEU, MG, BMP, GFR #### [place] [address] MCHC (RBC) [Mass/Vol] 34.7 32.0-36.0 G/dL Normal 09-21-19 20 [facility] ([place]) (0000 0) Comment: Performed By: #### CBC, ADIF F, ANEU, MG, BMP, GFR #### [place] [address] MCV (RBC) [Entitic vol] 93.0 81.0-100.0 fL Normal 09-20 [facility] ([place]) (0000 0) Comment: Performed By: #### CBC, ADIF F, ANEU, MG, BMP, GFR #### [place] [address] Platelet mean volume 8.4 6.4-10.5 fL Normal 0 [facility] (Bld) [Entitic vol] ([place]) ([address]450) Comment: Performed By: #### CBC, ADIF F, ANEU, MG, BMP, GFR #### [place] [id number] Platelets (Bld) [#/Vol] 215 150-450 10 3/mcL Normal 2019 [facility] ([place]) ([address]6665) Comment: Performed By: #### CBC, ADIF F, ANEU, MG, BMP, GFR #### [place] [address] RBC (Bld) [#/Vol] 3.99 4.50-6.00 10 6/mcL Low 09-21-2019 [facility] ([place]) (0000 0) Comment: Performed By: #### CBC, ADIF F, ANEU, MG, BMP, GFR #### [place] [id number] WBC (Bld) [#/Vol] 6.60 4.50-10.80 10 3/mcL Normal 09-21-2019 [facility] ([place]) ([address]52) Comment: Performed By: #### CBC, ADIF F, ANEU, MG, BMP, GFR #### [address] [address] bmp on 2019-09-21 Creatinine [Mass/Vol] 0.90 0.60-1.40 mg/dL Normal 09-21-19 20 [facility] ([place]) ([address]) Comment: Performed By: #### CBC, ADIF F, ANEU, MG, BMP, GFR #### [address] [address] Urea nitrogen/Creatinine 13.3 10.0-22.0 ratio Normal 09-20 [facility] [Mass ratio] [facility] ([place]) (24272) Comment: Performed By: #### CBC, ADIF F, ANEU, MG, BMP, GFR #### [address] [address] Calcium [Mass/Vol] 8.6 8.4-10.1 mg/dL Normal 09-21-2019 [facility] ([place]) (0000 0) Comment: Performed By: #### CBC, ADIF F, ANEU, MG, BMP, GFR #### [address] [address] Chloride [Moles/Vol] 107 98-110 mEq/L Normal 0 [facility] ([place]) (0000 0) Comment: Performed By: #### CBC, ADIF F, ANEU, MG, BMP, GFR #### [address] [address] CO2 [Moles/Vol] 26 22-32 mEq/L Normal 09-21-2019 [facility] ([place]) ([address]55) Comment: Performed By: #### CBC, ADIF F, ANEU, MG, BMP, GFR #### [address] [address] Electrolyte Balance 8.0 4.0-15.0 mEq/L Normal 09-21-2019 [facility] ([place]) (0000 0) Comment: Performed By: #### CBC, ADIF F, ANEU, MG, BMP, GFR #### [place] [id number] Glucose [Mass/Vol] 111 82-115 mg/dL Normal 09-21-2019 [facility] ([place]) (35329) Comment: Performed By: #### CBC, ADIF F, ANEU, MG, BMP, GFR #### [place] [id number] Potassium [Moles/Vol] 3.3 3.5-5.0 mEq/L Low 09-21-19 20 [facility] ([place]) (82896) Comment: Performed By: #### CBC, ADIF F, ANEU, MG, BMP, GFR #### [place] [address] Sodium [Moles/Vol] 141 136-145 mEq/L Normal 09-21-2019 [facility] ([place]) ([address]15) Comment: Performed By: #### CBC, ADIF F, ANEU, MG, BMP, GFR #### [address] [address] Urea nitrogen [Mass/Vol] 12.0 8.0-22.0 mg/dL Normal 09-20 [facility] ([place]) (46544) Comment: Performed By: #### CBC, ADIF F, ANEU, MG, BMP, GFR #### [address] [address] .neuabs on Neutrophils (Bld) 5.00 2.25-8.10 10 3/mcL Normal 09-21-2019 [facility] [#/Vol] [facility] ([place]) (00395) Comment: Performed By: #### CBC, ADIF F, ANEU, MG, BMP, GFR #### [address] [address] .gfr on 2019-09-21 GFR Non- >60 Normal 09-20 [facility] ([place]) (84142) Comment: Result Comment: GFR Population mean for Afri can [place], Non- Americans Ages 20-29 = 116 mL/min/1.73 [...] meters Performed By: #### APTT, PRO #### [address] [address] GFR >60 Normal 0 [facility] ([place]) (44774) Comment: Result Comment: GFR Population mean for Afri can [place], Non- Americans Ages 20-29 = 116 mL/min/1.73 [...] meters Performed By: #### APTT, PRO #### [address] [address] .auto diff on 09-20 Ammonia (P) [Mass/Vol] 0.60 0.09-1.40 10 3/mcL Normal 09-20- 020 [facility] ([place]) (58355) Comment: Performed By: #### CBC, ADIF F, ANEU, MG, BMP, GFR #### [place] [address] Basophils (Bld) 0.10 0.00-0.27 10 3/mcL Normal 09-21-2019 [facility] [#/Vol] [facility] ([place]) (99666) Comment: Performed By: #### CBC, ADIF F, ANEU, MG, BMP, GFR #### [address] [address] Basophils/100 WBC (Bld) 0.8 0.0-2.5 % Normal 2019 [facility] ([place]) (0000 0) Comment: Performed By: #### CBC, ADIF F, ANEU, MG, BMP, GFR #### [address] [address] Eosinophils (Bld) 0.10 0.00-0.65 10 3/mcL Normal 09-21-2019 [facility] [#/Vol] [facility] ([place]) ([address]) Comment: Performed By: #### CBC, ADIF F, ANEU, MG, BMP, GFR #### [address] [address] Eosinophils/100 WBC (Bld) 2.1 0.0-6.0 % Normal 09-02 [facility] ([place]) (0000 0) Comment: Performed By: #### CBC, ADIF F, ANEU, MG, BMP, GFR #### [address] [address] Lymphocytes (Bld) 0.80 0.90-4.32 10 3/mcL Low 09-21-2019 [facility] [#/Vol] [facility] ([place]) ([address]444) Comment: Performed By: #### CBC, ADIF F, ANEU, MG, BMP, GFR #### [address] [address] Lymphocytes/100 WBC (Bld) 11.8 20.0-40.0 % Low 05- 0-2019 [facility] ([place]) (0000 0) Comment: Performed By: #### CBC, ADIF F, ANEU, MG, BMP, GFR #### [address] [address] Monocytes/100 WBC (Bld) 9.8 2.0-13.0 % Normal 2019 [facility] ([place]) (0000 0) Comment: Performed By: #### CBC, ADIF F, ANEU, MG, BMP, GFR #### [facility] [address] [place] [address] Neutrophils/100 WBC (Bld) 75.5 50.0-75.0 % High 09-02 0 [facility] ([place]) (0000 0) Comment: Performed By: #### CBC, ADIF F, ANEU, MG, BMP, GFR #### [facility] [address] [place] [address] tropi on 2019-09-20 Troponin I.cardiac 3.310 0.000-0.040 ng/mL High 0 [facility] [Mass/Vol] [facility] ([place]) (17983) Comment: Result Comment: Troponin I r eference ranges (01/09/14): 0.00-0.040 ng/mL Negative an d non-diagnostic. >0.040 ng/mL Consistent with cardiac damage, increased clinical risk and possibility of myocardial in farction. Serial measurements, a rise & fall in test results, clinical histo ry, appropriate symptoms and/or ECG changes may help assess possibility of [place]. *Other non-acute coronary sy ndrome conditions such as CHF, myoc arditis, pulmonary emboli, sepsis and cardiac surgery could result in myoc ardial damage and increased troponi n levels. Performed By: #### TROPI ### # [facility] [address] [place] [address] progress on 2019-09 PROGRESS HNO ID: [id number] Normal 09-20-2019 [place] Author: Tiffany Morrison RN Clinic Service: ? [place] Author Type: ? (0000 0) Type: Progress Notes Filed: 09/20/2019 1:25 PM Note Text: COVID-19 Suspect PATIENT OUTREACH DAILY CALL Monitoring Call: Day 4 from symptom onset 09/17/19 Currently admitted to [facility]. Negative for covid per spouse (patient went to [facility] testin site) Aware that covid outreach is completed. advised to speak with or specialist wound care prior to d ischarge so f/u appt can be made. Tawny, this is the [facility] calling, may I speak to Alexia Merida [...] [facility] patients may call: ? [facility] Nurse second floor operator at [phone] ? Their PCP Office Caregivers may call: ? [facility] Employee Hotline: [phone] [facility] Employee Boost appointment for 24/11 emotional support: Patient verbalizes understanding of information provided. Dilles any further questions at this time. Please visit CDC.gov website for any updated information abo ut Coronavirus. You can also find information on the [facility] website. Additional information can be found on the CDC and [facility] web sites: https://www.cdc.gov/coronavirus/2019-nCoV/index.html https://[facility].org/coronavirus SIGNATURE: Tiffany Morrison RN PATIENT NAME: Alexia Merida DATE: September 20, 2019 TIME: 1:09 PM pro on 2019-09-20 INR Coag (PPP) [Relative 1.1 ratio Normal 09-19 [facility] time] ([place]) (0000 0) Comment: Result Comment: The [place] [employer] (CHEST, 1992, 102:312S-25S) recommended therapeutic rang e for oral anticoagulant therapy is: LOW RISK: Prophylaxis of manfred ous thrombosis INR: 2.0-3.0 Treatment of pulmonary embol ism 2.0-3.0 Prevention of systemic embol ism 2.0-3.0 HIGH RISK: Mechanical prosth etic valves 2.5-3.5 Performed By: #### APTT, PRO #### [place] [address] PT Coag (PPP) [Time] 13.0 9.0-14.6 seconds Normal 0 [facility] ([place]) ([address]) Comment: Result Comment: Effective , Protime results may be affected by some antibiotics (i.e. Ciprofloxa joshua, Azithromycin, Bactrim) which may potentiate the action of oral anticoagu lants, with further increases in Protime/INR. Performed By: #### APTT, PRO #### [facility] [address] [place] [address] cnptoutreach on 0 CNPTOUTREACH Patient Outreach (INTMSO) Normal 0 09-20-2019 [place] [facility] ALEXIA MERIDA ([id number]) 1935 [facility] Date Time Provider Department ([id number]) 09/20/19 TIFFANY MORRISON (RN) INTMSO During your visit today, we recorded the following informati on about you: Tiffany Morrison RN 09/20/2019 1:25 PM Addendum COVID-19 Suspect PATIENT OUTREACH DAILY CALL Monitoring Call: Day 4 from symptom onset 09/17/19 Currently admitted to [facility]. Negative for covid per spouse (patient went to [facility] testin site) Aware that covid outreach is completed. advised to speak with or specialist wound care prior to discharge so f/u appt can be made. Tawny, this is the [facility] calling, may I speak t o Alexia [...] [facility] patients may call: ? [facility] Nurse second floor operator at [phone] ? Their PCP Office Caregivers may call: ? [facility] Employee Hotline: [phone] [facility] Employee Boost appointment for 24/11 emotional support: Patient verbalizes understanding of information provid ed. Denies any further questions at this time. Please visit CDC.gov website for any updated information about Coronavirus. You can also find information on the [facility] website. Additional information can be found on [facility] and [facility] web sites: https://www.cdc.gov/coronavirus/2019-nCoV/index.html https://[facility].org/coronavirus SIGNATURE: Tiffany Morrison RN PATIENT NAME: [...] up [Other] Cmt: per , admitted to [facility] and outside lab negative for covid [...] Coag (Bld) 29.5 25.0-35.0 seconds Normal 09-20-2019 [facility] [Time] [facility] ([place]) ([address]) Comment: Result Comment: For Heparin anticoagulation therapy, the recommended therapeutic range is: 54-77 seconds (APTT Correlation with Anti-Xa therapeutic ran ge of 0.3-0.7 units/ml). PLEASE REFERENCE THE PHARMAC Y PROTOCOL FOR DOSING. Performed By: #### APTT, PRO #### [address] [address] aPTT Coag (Bld) [Time] None Normal 020 [facility] ([place]) ([address]) Comment: Performed By: #### APTT, PRO #### [address] [address] progress on 2019-09 PROGRESS HNO ID: [id number] Normal 09-19-2019 [facility] Author: Davida Crawford) DONTE Johnson [place] ([id number]) Service: ? Author Type: Registered Nurse Type: Progress Notes Filed: 09/19/2019 3:43 PM Note Text: HIGH RISK CHRONIC DISEASE MONITORING Provider Action/FYI: Contact made with patient: Yes Patient identified by name and . Discussed care with patient Hi my name is Davida Johnson RN and I am calling from the [facility] on behalf of your PCP, Torin [...] like to speak with a social work head orthopedic team physician to help give you support for any [...] and out of the doctor's office or [facility]. Our team would like to stay [...] Track Pt Outreach section. PROGRESS HNO ID: [id number] Normal 09-19-2019 [facility] Author: Ilana Chua RN [place] ([id number]) Service: ? Author Type: ? Type: Progress Notes Filed: 09/19/2019 12:57 PM Note Text: [id number] Voice Message - Day 3 since symptom onset on 09-17-19. Hello, this is the [facility] calling. We are sorry we missed you, but your care is important to us . We would like to follow [facility] M[facility] Sprayer yanet burris. Please take a moment to complete the questionnaire daily. If any of your symptoms have worsened, please call you PCP o archieice to discuss. [facility] and NON [facility]CF patients may call: ? [facility] Nurse second floor operator at [phone] ? Their PCP Office Caregivers may call: ? [facility] Employee Hotline: [phone] ? [facility] Employee Boost appointment for 24/11 emotional support: [phone] If you are finding it more difficult to breathe, or more dayana rt of breath when walking or climbing stairs, please go to the nearest ED . SIGNATURE: Ilana Chua RN PATIENT NAME: Alexia Merida DATE: September 19, 2019 TIME: 12:51 PM cnptoutreach on CNPTOUTREACH Patient Outreach (AMB BPA) Normal 09-19-2019 [place] [facility] ALEXIA MERIDA ([id number]) 1935 [facility] Time Provider Department ([id number]) 09/19/19 ILANA CHUA (RN) AMB BPA During your visit today, we recorded the following informati on about you: Ilana Chua RN 09/19/2019 12:57 PM Signed [id number] Voice Message - Day 3 since symptom onset on 09-17-19. Tawny, this is the [facility] calling. We are sorry we missed you, but your care is important to us . We would like to follow up on your MyChart Mastic Sprayer yanet burris. Please take a moment to complete the questionnaire daily. If any of your symptoms have worsened, please ca ll you PCP office to discuss. [facility] and NON [facility] patients may call: ? [facility] Nurse second floor operator at [phone] ? Their PCP Office Caregivers may call: ? [facility] Employee Hotline: [phone] ? [facility] Employee Boost appointment for 24/11 emotional support: [phone] If you are finding it more difficult [...] Assessed Reason for Visit: Covid Follow Up [6648] Prescriptions as of 09/19/2019 Sig: ZOLPIDEM 5 [...] CNPTOUTREACH Patient Outreach (AMBCMG) Normal 0 09-19-2019 [place] [facility] ALEXIA MERIDA ([id number]) 1935 [facility] Date Time Provider Department ([id number]) 09/19/19 DAVIDA JOHNSON (RN) [facility] During your visit today, we recorded the following informati on about you: Davida Johnson RN, RN 09/19/2019 3:43 PM Signed HIGH RISK CHRONIC DISEASE MONITORING Provider Action/FYI: Contact made with patient: Yes Patient identified by name and . Discussed care with patient Hi my name is Davida Johnson RN and I am calling from the [facility] on behalf of your PCP, Torin Noyola [...] like to speak with a social work head orthopedic team physician to help give you support for any [...] and out of the doctor's office or [facility]. Our team would like to stay connected [...] 09/19/19 progress on 2019-09 PROGRESS HNO ID: [id number] Normal 09-18-2019 [facility] Author: Cecilia Crawford) DONTE Olivo [place] Service: ? ([id number]) Author Type: Registered Nurse Type: Progress Notes Filed: 09/18/2019 2:17 PM Note Text: Summary: Both contact numbers would not accept calls from pr ivate number. Patient has covid test ordered. [id number] Voice Message Tawny, this is the [facility] calling. We are sorry we missed you, but your care is important to us . We would like to follow up on your MyChart Mastic Sprayer re sponse. Please take a moment to complete the questionnaire daily. If any of your symptoms have worsened, please call you PCP o ffice to discuss. [facility] and NON [facility] patients may call: ? [facility] Nurse second floor operator at [phone] ? Their PCP Office Caregivers may call: ? [facility] Employee Hotline: [phone] ? [facility] Employee Boost appointment for 24/11 emotional support: [phone] If you are finding it more difficult to breathe, or more dayana rt of breath when walking or climbing stairs, please go to the nearest ED . SIGNATURE: Cecilia Olivo RN PATIENT NAME: Alexia Merida DATE: September 18, 2019 TIME: 2:14 PM coronavirus [ccl] o n 2019-09-18 COVID 19 Result MARKETING INFORMATION ANALYST Negative CORNEG Normal 09-18-2019 [facility] ( [address]) Comment: Result Comment: Negative for COVID19 (SARS CoV2) by PCR. This test was developed and its performance characteristics determined by [facility] [place]. This test has bee n authorized by FDA under an Emergency Use Authorization (EUA). This test has been validated in accordance with the FDA's Guidance Document Policy for Diagnostics Test ing in Laboratories Certified to Perform High Complexity Testing under CLI A prior to Emergency use Authorization for Coronavirus Disease 2019 dur ing the Public Health Emergency issued on July 02, 2019. [facility] [address] [place] [address] Blake Lyles III, M.D. [id number] Performed By: #### [id number] ## ## [facility],[address] [place], [place] [id number] COVID 19 Source MARKETING INFORMATION ANALYST Nasopharyngeal Swab Normal 0 09-18-2019 [facility] ( 108[address]) Comment: Performed By: #### [id number] ## ## [facility],[address] [place] [address] coronavirus 2019 on 2019-09-18 COVID 19 Result MARKETING INFORMATION ANALYST Negative for COVID19 Normal 09-18-2019 [facility] (SARS CoV2) by PCR. Reference Lab (458[address]) Comment: Result Comment: Negative for This test was developed and its performance characteristics determined by [facility] [place]. This test has been authorized by FDA [...] developed and its performance characteristics determined by [facility] [place]. This test has been authorized by FDA [...] developed and its performance characteristics determined by [facility] [place]. This test has been authorized by FDA under an Emergency Use Authorization (EUA). This test has been validated in accordance with the FDA's Guidance Document Policy for Diagnostics Testing in Laboratories Certified to Perform High Complexity Testing under CLIA prior to Emergency use Authorization for Coronavir us Disease 2019 during the Public Health Emergency issued on July 02, 2019. COVID 19 Source MARKETING INFORMATION ANALYST MARKETING INFORMATION ANALYST Normal 09-18-2019 [facility] ([id number]) cnptoutreach on CNPTOUTREACH Patient Outreach (INTMMN) Normal 0 09-18-2019 [place] [facility] ALEXIA MERIDA ([id number]) 1935 M [place] Date Time Provider Department ([id number]) 09/18/19 CECILIA OLIVO (RN) INTMMN During your visit today, we recorded the following informati on about you: Cecilia Olivo RN, RN 09/18/2019 2:17 PM Signed [id number] Voice Message [employer], this is the [facility] calling. We are sorry we missed you, but your care is important to us . We would like to follow up on your MyChart Mastic Sprayer yanet burris. Please take a moment to complete the questionnaire daily. If any of your symptoms have worsened, please ca ll you PCP office to discuss. [facility] and NON [facility] patients may call: ? [facility] Nurse second floor operator at [phone] ? Their PCP Office Caregivers may call: ? [facility] Employee Hotline: [phone] ? [facility] Employee Boost appointment for 24/11 emotional support: [phone] If you are finding it more difficult [...] Assessed Reason for Visit: Covid Follow Up [7281] Cmt: covid follow up; test ordered Prescriptions [...] 09/18/19 progress on 2019-09 PROGRESS HNO ID: [id number] Normal 09-17-2019 [facility] Author: Nigel Coyle [place] ([id number]) Service: ? Author Type: Physician Type: Progress [...] on 2019-09-17 CNPN Telephone (COVHLD) Normal 09-17-2019 [place] [facility] ALEXIA MERIDA ([id number]) 1935 [facility] Date Time Provider Department ([id number]) 09/17/19 KAYLA CORMIER (RAUL) LIU During your visit today, we recorded the following informati on about you: Kayla Cormier APRN.CNP 09/17/2019 4:26 PM Signed Meets criteria for testing. COVID-19 [place]in[place] t ordered. A member from the [facility] will be in contact with the patient to sc hedule testing. Please notify pt. Kayla Cormier APRN.RAUL PATIENT INSTRUCTIONS: At present, these are our recommendation s regarding the coronavirus (COVID-19) outbreak: - Wash your hands regularly for at least 20 seconds with soa p and water, especially before eating. - If soap/water are unavaila ble, use a hand assistant credit manager with at least 60% alcohol - Avoid [...] at you do not come to any [facility] facility without calling your primary care physician or s peaking to a provider using a virtual visit using [facility]? Online. Y ou will be [...] healthy. Additional information can be found on [facility] and [facility] web sites: https://www.cdc.gov/coronavirus/2019-nCoV/index.html https://[facility].org/coronavirus Allergies As of Date: 09/17/2019 Noted Allergy Reaction PENICILLINS 01/22/2005 2 - Rash 9 - Itching SULFA (SULFONAMIDE ANTIBIOTICS) 01/22/2005 2 - Rash 9 - Itching Date Reviewed: 09/17/2019 Reviewed by: Beena Pandya Ma - Fully Assessed Reason for Visit: Covid-19 Hotline [9264] Primary Visit Diagnosis:Suspected COVID-19 virus infection [ Z20.828] Order(s):2019 CORONAVIRUS [SQCOVID] Order #: [id number] [facility]-19 HOME MONITORING [[id number]] Order #: [id number] Prescriptions as of 09/17/2019 Sig: ZOLPIDEM [...] CNOV Office Visit (UCTR) Normal 09-17-19 20 [place] [facility] ALEXIA MERIDA ([id number]) 1935 M [place] Date Time Provider Department ([id number]) 09/17/19 3:[address] [facility] WSTR UCWSTR During your visit today, we [...] 09/17/19 progress on 2019-08 PROGRESS HNO ID: [id number] Normal 08-29-2019 [facility] Author: More (Gripper Machine Operator) [facility] ([id number]) Service: ? Author Type: Nurse Practitioner Type: Progress Notes Filed: 08/29/2019 9:04 AM Note Text: This Team Access Model visit is a phone encounter. It requir ed patient-provider interaction for the medical decision making as documented below. Patient agrees to the visit: Yes Patient Location: [place] CC: Patient presents with: Follow Up: abdominal [...] above progress on 2019-08 PROGRESS HNO ID: [id number] Normal 08-25-2019 [facility] Author: Juana (Tech) Erik Nguyen [facility] ([id number]) Service: ? Author Type: Pain Management Physician Type: Progress Notes Filed: 08/25/2019 3:38 PM [...] unstable renal function, e.g. those with ac [place] kidney injury, the eGFR may not accurately [...] 2019 TIME: 3:37 PM PROGRESS HNO ID: [id number] Normal 08-25-2019 [facility] Author: More Strickland) [facility] ([id number]) Service: ? Author Type: Nurse Practitioner Type: [...] 01/22/2005 Ruben Nash MD. [facility]. - CARD DEFIBRILL AUTO IMPLANT IN [...] - History of CVA (cerebrovascular accident) 06/04/2017 [place]: Dr. Yan - Hypertrophy of prostate [...] Laterality Date - COLONOSCOP W/ OR W/O [facility] SPEC 06/12/10 - COLONOSCOP W/ OR W/O [facility] SPEC 06/26/2014 Colonoscopy - DESTR LESION BENIGN/PREMAL [...] agreeable t o treatment plan. More Mann, LISA.EMAIL MARKETING COORDINATOR ct abd/pel w ivcon on 2019-08-25 CT ABD/PEL W * * *Final Report* * * Normal 08-03 [facility] IVCON DATE OF EXAM: Aug 25 2019 3:33PM [place] ([id number]) [facility] 0530 - CT ABD/PEL W IVCON / [...] chronic loculated left posterior pleural fluid collection. Ice Cream Freezer Helper: PSCB Transcribe Date/Time: Aug 25 2019 3:36P Dictated by : MARSHA RIOS MD This examination was interpreted and the report reviewed and electronically signed by: MARSHA RIOS MD on Aug 25 2019 3:52PM EST [id number] creatinine on 08-24 Creatinine [Mass/Vol] 0.95 0.73-1.22 mg/dL Normal 08-25-19 [facility] ([id number]) Creatinine [Mass/Vol] >60 Normal 08-25-19 [facility] ([id number]) Comment: Result Comment: eGFR (Estima zhen GFR) [...] on 2019-08-25 CNPN Telephone (INTMWS) Normal 08-25-2019 [place] [facility] MAGNOLIAALEXIA Paul ([id number]) 1935 [facility] Date Time Provider Department ([id number]) 08/25/19 TORIN NOYOLA INTMWS During your visit [...] Itching Date Reviewed: 08/25/2019 Reviewed by: Juana ([employer]) Evelina Sevilla - Fully Asse ssed Reason [...] on 09/22/19 CNPN Telephone (INTWS) Normal 08-25-2019 [place] [facility] ALEXIA MERIDA ([id number]) 1935 M [place] Date Time Provider Department ([id number]) 08/25/19 MORE MANN (RAUL) INTMWS During your [...] Schedule virtual/phone follow-up on Thursday. GALO Zavala [facility] 08/25/2019 4:17 PM Signed Patient is notified of all information and verbalizes unders tanding Patient would like antibiotics [facility]. Allergies As of Date: 08/25/2019 Noted Allergy Reaction PENICILLINS 01/22/2005 2 - Rash 9 - Itching SULFA (SULFONAMIDE ANTIBIOTICS) 01/22/2005 2 - Rash 9 - Itching Date Reviewed: 08/25/2019 Reviewed by: Juana ([employer]) Evelina Sevilla - Fully Asspaul locke Reason [...] daily for 7 days. Encounter Status:Closed by MORE MANN CNP on 08/25/19 cnov on 2019-08-25 CNOV Office Visit (INTMWS) Normal 08-25-[address] [place] [address] [facility] ALEXIA MERIDA ([id number]) 1935 M [place] Date Time Provider Department ([id number]) 08/25/19 10:40 AM MORE MANN (RAUL) INTMWS [...] 01/22/2005 Ruben Nash MD. [facility]. - CARD DEFIBRILL AUTO IMPLANT IN [...] - History of CVA (cerebrovascular accident) 06/04/2017 [facility]: Dr. Yan - Hypertrophy of prostate [...] Date Reviewed: 08/25/2019 Reviewed by: Shelia Chappell Vehicle Safety Inspector - Fully Assessed Reason for Visit: Abdominal Pain [1] Primary Visit Diagnosis:Left lower quadrant abdominal pain [ R10.32] Other Visit Diagnoses:Constipation, unspecified constipation type [K59.00] Encounter for medication monitoring [Z51.81] Order(s):CT ABD/PEL W IVCON [[id number]] Order #: [id number] FU TURE iv contrast (will be provided [...] EachRfl: 0 CREATININE BLD [SQCRET] Order #: [id number] FUTURE Prescriptions as of 08/25/2019 Sig: ZOLPIDEM [...] 2019-08 OBSOLETE Refill (INTMWS) [facility] ALEXIA MERIDA ([id number]) 1935 [facility] Time Provider Department ([id number]) 08/04/19 TORIN NOYOLA INTTamraWS During your visit today, we recorded the following informati on about you: Junie Bronwe Admin Sec 08/04/2019 2:16 PM Signed Patient [...] was ident ified. 08/04/2019 by More Older, TECH BRAZER TESTER.EMAIL MARKETING COORDINATOR Allergies As of Date: 08/04/2019 Noted Allergy [...] 08/04/19 progress on 2019-03 PROGRESS HNO ID: [id number] Normal 03-28-2019 [facility] Author: Torin Noyola [place] ([id number]) Service: ? Author Type: Physician Type: Progress Notes Filed: 03/28/2019 1:45 PM Note Text: This note was created using Equipois. Subjective Patient presents with: Yearly Exam: Physical He had chronic progressive neck pain radiating to the right shoulder. He saw a practicioner at [facility], and CT of the spine wa [...] 01/22/2005 Ruben Nash MD. [facility]. - CARD DEFIBRILL AUTO IMPLANT IN [...] - History of CVA (cerebrovascular accident) 06/04/2017 [facility]: Dr. Yan - Hypertrophy of prostate [...] SKs ablated x 4 - EGD W/O [facility] SPECIMEN W/BX 11/07/11 - EGD W/O OR [...] CNOV Office Visit (INTMWS) Normal 03-28-20 19 [place] [facility] MAGNOLIAALEXIA Miller ([id number]) 1935 M [place] Date Time Provider Department ([id number]) 03/28/19 10:20 AM TORIN NOYOLA INTMWS During your visit today, we recorded the following informati on about you: Temperature Pulse Respiration Blood pressure 98.3 degrees 69/minute 18/minute 116/70 Weight Height 90.7 kg 1.727 m Torin Nyoola MD 03/28/2019 1:45 PM Signed This note was created using NoteWriter. Subjective Patient presents with: Yearly Exam: Physical He had chronic progressive neck pain rad iating to the right shoulder. He saw a practicioner at [facility], and CT of the spine was [...] for pulmonary. He followed with Dr. Cordero, [place]. He followed with Dr. Aric Zelaya [...] 01/22/2005 Ruben Nash MD. [facility]. - CARD DEFIBRILL AUTO IMPLANT IN [...] - History of CVA (cerebrovascular accident) 06/04/2017 [facility]: Dr. Yan - Hypertrophy of prostate [...] SPEC 06/12/10 - COLONOSCOP W/ OR W/O [facility] SPEC 06/26/2014 Colonoscopy - DESTR LESION BENIGN/PREMAL 06/10/06 SKs ablated x 4 - EGD W/O [facility] SPECIMEN W/BX 11/07/11 - EGD W/O OR [...] Torin Noyola MD Referring Provider: TORIN NOYOLA [[id number]] Allergies As of Date: 03/28/2019 Noted Allergy [...] colon, unspecified part of colon [D12.6] Order(s):PERS [facility] MGMT EAR WAX REMOVA [[id number]] Order #: [id number] CONSULT TO GASTROENTEROLOGY [9010] Order #: [id number]: 1 Prescriptions as of 03/28/2019 Sig: ATORVASTATIN [...] OBSOLETE Refill (INTMWS) Normal 03-14-2019 Uday adkins [facility] ALEXIA MERIDA ([id number]) 1935 [facility] Date Time Provider Department ([id number]) 03/14/19 TORIN NOYOLA During your visit today, [...] notify the patient once completed. Matilde Fabian [facility] Delia Castro LPN 03/14/2019 1:59 PM [...] Date Reviewed: 12/23/2018 Reviewed by: Shelia Chappell Vehicle Safety Inspector - Fully Assessed Reason for Visit: Refill [...] encounter Fall in (into) shower Xr [facility] 01-13-2020 procedure or empty bathtub, initial encounter Comment: Radiology XR 09-17-2019 - Patient encounter Esophageal ZACH starr 09-17-2019 procedure disorders [facility] ([id number] ) [facility] ZACH SOLIS 01-16-2020 - Telephone [facility] 01-16-2020 encounter Comment: disk request Procedures Procedure Name Date Provider Location Radex ribs uni w/posteroant 01-13-2020 Romina (Raul) [facility] ([id number]) minimum 3 views Radex spine thoracic 2 views 01-13-2020 Romina (Gripper Machine Operator) [facility] ([id number]) Plan of Treatment Plan Description Date Location ADVANCE DIRECTIVE ADVANCE DIRECTIVE 11-30-2024 - [facility] inic DISCUSSION DISCUSSION 11-30-2024 ([id number]) DIABETES SCREEN DIABETES SCREEN 03-17-2021 - [facility] 03-17-2021 ([id number]) SPIROMETRY SPIROMETRY 11-30-2020 - [facility] 11-30-2020 ([id number]) Comment: Postponed from 1953 (D eclined at this time) DTAP,TDAP,TD (1 - Tdap) DTAP,TDAP,TD (1 - Tdap) 11-30-2020 - [facility] 11-30-2020 (87078) Comment: Postponed from [birth year]09/1954 (D eclined at this time) LDL CHOLESTEROL LDL CHOLESTEROL 01-20-2020 - [facility] 01-20-2020 (73793) INFLUENZA (#1) INFLUENZA (#1) 2020 - [facility] 01-03-2020 (38047) SHINGRIX VACCINE (2 of SHINGRIX VACCINE (2 of 01-06-2012 - [facility] 3) 3) 01-06-2012 (06485) no information [facility] (26986) Immunizations Vaccine Notes Status Date Location Influenza Vaccine, influenza virus (completed) 02-01-2013 - [facility] Split-Non Spec vaccine, unspecified 02-01-2013 (4419 5) formulation Influenza Vaccine, influenza virus (completed) 02-02-2012 - [facility] Split-Non Spec vaccine, unspecified 02-02-2012 (4419 5) formulation Influenza Vaccine, influenza virus (completed) 03-25-2011 - [facility] Split-Non Spec vaccine, unspecified 03-25-2011 (4419 5) formulation Influenza Seasonal - influenza, high dose (completed) 02-23-2019 - [facility] High Dose - Age 65+ seasonal, 02-23-2019 (44965) preservative-free Influenza Seasonal - influenza, high dose (completed) 02-15-2018 - [facility] High Dose - Age 65+ seasonal, 02-15-2018 (47581) preservative-free Influenza Seasonal - influenza, high dose (completed) 03-04-2017 - [facility] High Dose - Age 65+ seasonal, 03-04-2017 (89835) preservative-free Influenza Seasonal influenza, seasonal, (completed) 02-09-2018 - [facility] Trivalent Inj Pres injectable, 02-09-2018 (06544) Free preservative free Influenza Seasonal influenza, seasonal, (completed) 03-04-2017 - [facility] Trivalent Inj Pres injectable, 03-04-2017 (19947) Free preservative free Novel Influenza H1N1, novel (completed) 05-02-2009 - [facility] preservative free [id number], 05-02-2009 (441 95) preservative-free, injectable Pneumococcal-13 Vac pneumococcal conjugate (completed) 07-04-2014 - [facility] Conjugate vaccine, 13 valent 07-04-2014 (73679) Pneumovax pneumococcal (completed) 03-22-2007 - [facility] polysaccharide vaccine, 03-22-2007 (441 95) 23 valent TD Adult tetanus and diphtheria (completed) 12-29-2012 - [facility] toxoids, adsorbed, 12-29-2012 (97426) preservative free, for adult use (2 Lf of tetanus toxoid and 2 Lf of diphtheria toxoid) Zostavax zoster vaccine, live (completed) 11-11-2011 - [facility] 11-11-2011 (10871) Payers Payer Name Policy Number Location PRIMETIME [id number] [facility] (44 195) PRIMETIME MEDICARE OUTPATIENT [id number] [facility] ([id number]) [id number] [facility] ([id number]) The following information is from the original human readable contentNo Payer Records FoundNo Payer Records FoundNo Payer Records FoundNo Payer Records FoundNo Payer Records Found Social History Type Social History Date Location Description Tobacco smoking status Former smoker 01-13-2020 - [facility] NHIS 01-13-2020 (18447) History of tobacco use Current smoker 05-04-1974 [facility] ([id number]) History of tobacco use Cigarette Smoker 05-04-1974 [facility] ([id number]) Cigarettes smoked 01-13-2020 - [facility] current (pack per day) 01-13-2020 (51347) - Reported Tobacco use and Never used 01-13-2020 - [facility] exposure 01-13-2020 (83923) Alcohol intake Current drinker of 01-13-2020 - [place] [facility] marvin alcohol (finding) 01-13-2020 (07227) History SDOH Alcohol 3 03-28-2019 - [place] [facility] Frequency 03-28-2019 (93495) History SDOH Alcohol 1 03-28-2019 - [place] [facility] Std Drinks 03-28-2019 (41771) Sex Assigned At Not on file [facility] (87167) Exposure to SARS-CoV-2 Not sure [facility] (event) (53744) The following information is from the original [...] 12/29/2012 Pneumonia 03/23/2009 09/24/2010 Overview: 03/20/09 to [facility] ED for dyspnea/pneumonia/influenza. 04/04/10 xray with pleural [...] 12/29/2012 Pneumonia 03/23/2009 09/24/2010 Overview: 03/20/09 to [facility] ED for dyspnea/pneumonia/influenza. 04/04/10 xray with pleural [...] History of Present Illness Sharon Hodges (), [facility] - 01/13/2020 3:12 PM EDT Radiology Service [...] BE BASED ON THE PRIMARY CLINICAL RECORDS. [facility] provides no warranty or guarantee of the accuracy or completeness of information in this document. UNRECOGNIZED CONTENT PROVIDED BELOW FOR UNRECOGNIZED SECTION No Status Records FoundNo Status Records FoundNo Status Records FoundNo Status Records Found UNRECOGNIZED CONTENT PROVIDED BELOW FOR UNRECOGNIZED SECTION INFORMATION SOURCE DATE CREATED AUTHOR AUTHOR'S ORGANIZATIO N 09/18/2019 [facility] DATE CREATED AUTHOR AUTHOR'S ORGANIZATIO N 09/19/2019 [facility] Ref erence Lab DATE CREATED AUTHOR AUTHOR'S ORGANIZATIO N 10/10/2019 [facility] ([place]) DATE CREATED AUTHOR AUTHOR'S ORGANIZATIO N 01/17/2020 [facility] UNRECOGNIZED CONTENT PROVIDED BELOW FOR UNRECOGNIZED SECTION Source Comments In the event this information is protected by the Federal Confidentiality of Alcohol and Drug Abuse Patient Records regulations: The Federal rules restrict any use of the information to criminally investigate or prosecute any alcohol or drug abuse patient.[facility] the event this information is protected by the Federal Confidentiality of Alcohol and Drug Abuse Patient Records regulations: The Federal rules restrict any use of the information to criminally investigate or prosecute any alcohol or drug abuse patient.[facility] UNRECOGNIZED CONTENT PROVIDED BELOW FOR UNRECOGNIZED SECTION Reason for Visit Reason Comments Radiology XR Reason Onset Date Comments disk request 01/16/2020 UNRECOGNIZED CONTENT PROVIDED BELOW FOR UNRECOGNIZED SECTION Miscellaneous Notes Telephone Encounter - Jane Allred - 01/16/2020 11:00 AM EDTCD/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 PT informed to turkey picker in 24 Hrs at [place]. Thanks Jose Juan Vera documented in this encounter
--- OUTSIDE RECORDS SUMMARY | 2020-02-14 13:01 | XMS RPT_ITS | CCD ---
:1935 External Reference #:[id number] Author Organization [facility] Care Team Providers Name Role Phone IRMA, E Admitting Unavailable IRMA, E Attending Unavailable IRMA, E Primary Care Unavailable Chandan Noyola Primary Care Provider Allergies Reported Allergen Reaction(s) Severity Date of Onset Location Penicillins Rash, Itching 01-22-2005 - [facility] ([id number]) Sulfonamides (Antibiotic) Rash, Itching 01-22-2005 - [facility] (53342) Medications Medication Name Sig Date Prescriber Location Acetaminophen / HYDROcodone-acetam 10-13-2019 [facility] Provider [facility] HYDROcodone inophen (NORCO) (96811) 5-325 mg per tablet Take 1.5 tablets by mouth once daily. Per Pain Management. 0 10/13/2019 Active Comment: Take 1.5 tablets by mouth on ce daily. Per Pain Management. Albuterol albuterol HFA (VENTOLIN HFA) 07-20-2015 [facility] Provider [facility] 90 mcg/actuation inhaler (44 195) Inhale 1-2 Puffs as instructed every 4 hours as needed. 0 07/20/2015 Active Comment: Inhale 1-2 Puffs as instruct ed every 4 hours as needed. Albuterol / ipratropium-albuterol [facility] Provider [facility] Ipratropium (COMBIVENT RESPIMAT) 20-100 (73814) mcg/actuation mist Indications: Chronic obstructive pulmonary disease, unspecified COPD type (HCC) Inhale 1 Puff as instructed. Inhale 1 puff once daily 0 Active Comment: Inhale 1 Puff as instructed. Inhale 1 puff once daily apixaban apixaban (ELIQUIS) 5 mg 12-01-2017 More (Regulatory Scientist) Older C [facility] tab(s) Indications: Atrial ( 52188) fibrillation, unspecified type (HCC) Take 1 tablet by mouth twice daily. 60 tablet 3 12/01/2017 Active Comment: Take 1 tablet by mouth twice daily. Aspirin aspirin, enteric coated 07-11-2015 Torin rodgers [facility] (ADULT LOW DOSE ASPIRIN) (44 195) 81 mg EC tablet Take 1 tablet by mouth once daily. 0 07/11/2015 Active Comment: Take 1 tablet by mouth once daily. atorvastatin atorvastatin (LIPITOR) 40 03-14-2019 More (Regulatory Scientist) Older [facility] mg tablet Indications: (4419 5) Mixed hyperlipidemia Take 1 tablet by mouth once daily. 90 tablet 3 03/14/2019 Active Comment: Take 1 tablet by mouth once daily. carvedilol carvedilol (COREG) 6.25 10-29-2018 Torin rodgers [facility] mg tablet Take 1 tablet (441 95) by mouth twice daily. 0 10/29/2018 Active Comment: Take 1 tablet by mouth twice daily. fluticasone fluticasone (FLONASE) 50 04-21-2017 Cheryl ([facility]) [facility] mcg/actuation nasal spray Adilson (4 2748) Indications: Cough , Post-nasal drainage Use 1-2 Sprays in each nostril once daily. Rinse mouth after use. Use once daily as needed. 1 Bottle 2 04/21/2017 Active Comment: Use 1-2 Sprays in each nostr il once daily. Rinse mouth after use. Use once daily as needed. Furosemide furosemide 20 mg tablet 04-14-2013 Torin rodgers [facility] Indications: (64570) Cardiomyopathy, ischemic Take 1 tablet by mouth once daily. 0 04/14/2013 Active Comment: Take 1 tablet by mouth once daily. Ipratropium ipratropium bromide 10-29-2018 Torin Noyola [facility] (ATROVENT) 42 mcg (0.06 (441 95) %) nasal spray Indications: Rhinosinusitis Use 2 Sprays in the nose three times daily. 1 Bottle 1 10/29/2018 Active Comment: Use 2 Sprays in the nose thr ee times daily. Lisinopril lisinopril (ZESTRIL, 09-24-2019 Torin Noyola [facility] PRINIVIL) 40 mg tablet (4419 5) Take 1 tablet by mouth once daily. 90 tablet 3 09/24/2019 Active Comment: Take 1 tablet by mouth once daily. Spironolactone spironolactone 09-27-2019 Tony Dennys [facility] (ALDACTONE) 25 mg (12780) tablet Indications: Essential hypertension Take 1 tablet by mouth once daily. 0 09/27/2019 Active Comment: Take 1 tablet by mouth once daily. zolpidem zolpidem (AMBIEN) 5 mg 12-01-2019 - More (Regulatory Scientist) Older [facility] tablet Indications: 05-29-2020 (43634) Insomnia, unspecified type Take 1 tablet by mouth at bedtime as needed for Sedation for up to 180 days. FOR SLEEP 30 tablet 1 12/01/2019 05/29/2020 Active Comment: Take 1 tablet by mouth at be dtime as needed for Sedation for up to 180 days. FOR SLEEP Problems Active Problems Category Problem Name Status Date Location Acute myocardial Myocardial infarction Active 09-20-2019 - [facility] infarction (43622) Cardiac dysrhythmias Atrial fibrillation Active 01-10-2010 - [facility] (12074) Chronic obstructive Chronic obstructive Active 10-17-2009 - [facility] pulmonary disease and lung disease (72471 ) bronchiectasis Conduction disorders Automatic implantable Active 2008 - [facility] cardiac defibrillator (97896 ) in situ Coronary atherosclerosis Ischemic myocardial Active [facility] and other heart disease dysfunction (441 95) Disorders of lipid Mixed hyperlipidemia Active 01-22-2005 - C [facility] metabolism (56615) Essential hypertension Essential hypertension Active 11-11-19 [facility] (52079) External cause codes: Fall in (into) shower Active [facility] Fall or empty bathtub, (79049) initial encounter Other nutritional; Obese class I [facility] endocrine; and metabolic (44 195) disorders Residual codes; Obstructive sleep apnea Active 10-04-2007 - [facility] unclassified syndrome (46966) Spondylosis; Backache Active 03-10-2018 - [facility] intervertebral disc (19754) disorders; other back problems Transient cerebral Transient cerebral Active 09-20-2019 - [facility] ischemia ischemia (72235) Past or Other Problems Category Problem Name Status Date Location Other and Polyp of colon Com[facility]vin unspecified benign - (06379) neoplasm Other circulatory History of cerebrovascular Completed [facility] disease accident - (67333) 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 - (441 95) Other screening for Electroencephalogram Completed 09-22-2019 [facility] suspected conditions abnormal - (82763) (not mental disorders or infectious disease) Pleurisy; Pleural plaque Completed 10-29-2018 [facility] marvin pneumothorax; - (16675) pulmonary collapse Residual codes; Insomnia Completed 06-30-2012 [facility] inic unclassified - (99337) Results Result Name Value Range Unit Interpretation Flag Date Location cnpn on 2020-01-16 CNPN Telephone (RGMOB) Normal 01-16-2020 [facility] ALEXIA MERIDA ([id number]) 1935 [facility] Time Provider Department ([id number]) 01/16/20 GUSTAVO WELLS V RGMOB During your visit today, we recorded the following informati on about you: Jose Juan Tracey Pss 01/16/2020 10:30 AM Signed Pt would like to have images and reports from XRs perf ormed on 01/13/2020 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 Thanks Jose Juan Tracey Pss Jane Dawson Pss 01/16/2020 11:00 AM Signed CD/REPORTS READY FOR PASTORAL COUNSELOR AT [facility] Allergies As of Date: 01/16/2020 Noted [...] * * *Final Report* * * Normal [facility] AP/LAT DATE OF EXAM: Jan 13 2020 3:12PM [place] (76576) WOX 5262 - XR THORACIC 2V AP/LAT [...] is report ed under a separate cover. Grades 9 12 Tutor: CODY Transcribe Date/Time: Jan 13 2020 3:18P Dictated by : BEBE SANCHEZ MD This examination was interpreted and the report reviewed and electronically signed by: BEBE SANCHEZ MD on Jan 13 2020 3:21PM EST [id number] xr rib/chst 3v ap rib/obl/chst l on 2020-01-13 XR RIB/CHST 3V AP * * *Final Report* * * Normal 01-13-2020 [place] RIB/OBL/CHST L DATE OF EXAM: Jan 13 2020 3:12PM Clinic WOX 5243 - XR RIB/CHST 3V AP RIB/OBL/CHST L / [id number] [place] PROCEDURE REASON: multiple diagnoses (53720) * * * * Physician Interpretation * [...] pleural thickening and/or loculated flu id, unchanged. Grades 9 12 Tutor: [facility] Transcribe Date/Time: Jan 13 2020 3:15P Dictated by : Freya LANE MD This examination was interpreted and the report reviewed and electronically signed by: Freya LANE MD on Jan 13 2020 3:19PM EST [id number] progress on 2020-01 PROGRESS HNO ID: [id number] Normal 01-13-2020 [facility] Author: Sharon Gómez (Rt) Evelina Hodges [place] ([id number]) Service: ? Author Type: Communications Scientist Type: Progress Notes Filed: 01/13/2020 3:12 PM [...] 13, 2020 3:12 PM PROGRESS HNO ID: [id number] Normal 01-13-2020 [facility] ([id number][facility] Service: ? Author Type: Nurse Practitioner Type: [...] 01/22/2005 Ruben Nash MD. [facility]. - CARD DEFIBRILL AUTO IMPLANT IN SITU [...] - History of CVA (cerebrovascular accident) 06/04/2017 [facility]: Dr. Yan - Hypertrophy of prostate [...] RESULT 09/22/2019 - COLONOSCOP W/ OR W/O [facility] SPEC 06/12/10 - COLONOSCOP W/ OR W/O [facility] SPEC 06/26/2014 Colonoscopy - DESTR LESION BENIGN/PREMAL [...] 2020-01-13 CNOV Office Visit (UCWSTR) Normal 01-13-20 [place] [facility] ALEXIA MERIDA ([id number]) 1935 M [place] Date Time Provider Department ([id number]) 01/13/20 2:45 PM ROMINA TELLEZ (CROWN BLOCKER) WSTR During your visit today, we recorded [...] - History of CVA (cerebrovascular accident) 06/04/2017 [facility]: Dr. Yan - Hypertrophy of prostate [...] RESULT 09/22/2019 - COLONOSCOP W/ OR W/O [facility] SPEC 06/12/10 - COLONOSCOP W/ OR W/O [facility] SPEC 06/26/2014 Colonoscopy - DESTR LESION BENIGN/PREMAL 06/10/06 SKs ablated x 4 - EGD W/O [facility] SPECIMEN W/BX 11/07/11 - EGD W/O OR [...] [M54.9] Order(s):XR RIBS/CHEST 3V AP RIB/OBLS/CXR LT [[id number]] Order #: [id number] FUTURE XR THORACIC LIMITED 2V AP/LAT [[id number]] Order #: [id number] FUTURE Prescriptions as of 01/13/2020 Sig: ZOLPIDEM [...] when lying down. Encounter Status:Closed by ROMINA TELELZ CNP on 01/13/20 No panel information on 2020-01-13 [facility] (35779) progress on 2019-12 PROGRESS HNO ID: [id number] Normal 12-07-2019 [facility] Author: Luz (Rn) DONTE Mckinley [place] ([id number]) Service: ? Author Type: Registered Nurse Type: [...] his/her office dir ectly or by using [employer] to connect virtually. Thank you so much for your time today. It has been our pleas ure to work with you over these past couple of months. We are creating n ew programs at the [facility] that you may be eligible for, so you may be contacted in the future. Until then, be well!? Contact made with patient: Yes Patient identified by name and . Discussed care with spouse Hi my name is Luz Mckinley RN and I am calling from the [facility] on behalf of your PCP, Torin [...] like to speak with a social work steam oven operator to help give you support for any [...] CNPTOUTREACH Patient Outreach (FAMPAM) Normal 0 12-07-2019 [place] [facility] MAGNOLIAALEXIA Paul ([id number]) 1935 M [place] Date Time Provider Department ([id number]) 12/07/19 LUZ MCKINLEY (RN) ANTWAN During your [...] his/he r office directly or by using [employer] to connect virtually. Thank you so much for your time today. It has been our pleasure to work with you over these past couple of months. We are creating new pr ograms at the [facility] that you may be eligible for, s o you may be contacted in the future. Until then, be well!? Contact made with patient: Yes Patient identified by name and . Discussed care with spouse Hi my name is Luz Mckinley RN and I am calling from the [facility] on behalf of your PCP, [...] like to speak with a social work steam oven operator to help give you support for any [...] Itching Date Reviewed: 12/01/2019 Reviewed by: More ([facility]) Older - Fully Assessed Reason for [...] 12/07/19 progress on 2019-11 PROGRESS HNO ID: [id number] Normal 12-01-2019 [facility] Author: More (Regulatory Scientist) [facility] ([id number]) Service: ? Author Type: Nurse Practitioner Type: [...] - History of CVA (cerebrovascular accident) 06/04/2017 [facility]: Dr. Yan - Hypertrophy of prostate [...] RESULT 09/22/2019 - COLONOSCOP W/ OR W/O [facility] SPEC 06/12/10 - COLONOSCOP W/ OR W/O [facility] SPEC 06/26/2014 Colonoscopy - DESTR LESION BENIGN/PREMAL [...] I48.91 stable 7. Coronary artery disease involving [place] coronary artery of [place] heart without angina pectoris - ICD9: 414.01, [...] 2019-12-01 CNOV Office Visit (INTMWS) Normal 12-01-19 [place] [facility] ALEXIA MERIDA ([id number]) 1935 M [place] Date Time Provider Department ([id number]) 12/01/19 3:40 PM MORE MANN (RAUL) INTMWS During your visit today, we recorded the following informati on about you: Temperature Pulse Respiration Blood pressure 97.4 degrees 76/minute 16/minute 120/80 Weight 88.5 kg More Mann GERMAN PROFESSORGINA 12/01/2019 4:12 PM Signed CC: Patient presents with: Follow Up HPI Alexia Merida is a 84 year old male who presents today for above. Patient had rotator cuff surgery 11/01. Doing really well, pain has resolv ed and ROM restored. Currently in PT, follow-up [facility] h surgeon scheduled in a couple weeks. [...] 01/22/2005 Ruben Nash MD. [facility]. - CARD DEFIBRILL AUTO IMPLANT IN SITU [...] - History of CVA (cerebrovascular accident) 06/04/2017 [facility]: Dr. Yan - Hypertrophy of prostate [...] RESULT 09/22/2019 - COLONOSCOP W/ OR W/O [facility] SPEC 06/12/10 - COLONOSCOP W/ OR W/O [facility] SPEC 06/26/2014 Colonoscopy - DESTR LESION BENIGN/PREMAL 06/10/06 SKs ablated x 4 - EGD W/O BRS SPECIMEN W/BX 11/07/11 - EGD W/O OR W/BRUSH/WASH 04/13/14 EGD - HEART SURGERY HX 01/2004 Triple bypass - INSERT/REPL DEFIB LEAD/GENER OTHR 08/22/2008 AICD - LAPAROSCOPIC CHOLEYCYSTECTOMY 1977 Cholecystectomy, lap - TRANSCATH STENT ADDN VESSEL,PERCUT 04/05/2013 Proximal RCA Promus AMTTHEW ALLERGIES Penicillins; Sulfa (Sulfonamide Antibiotics) MEDICATIONS HYDROcodone-acetaminophen [...] I48.91 stable 7. Coronary artery disease involving [place] coronary arter y of [place] heart without angina pectoris - ICD9: 414.01, [...] at your pharmacy Referring Provider: TORIN NOYOLA [[id number]] Allergies As of Date: 12/01/2019 Noted Allergy [...] type (HCC) [I48.91] Coronary artery disease involving [place] coronary artery of [place] heart without angina pectoris [I25.10] Chronic obstructive [...] 12/01/19 progress on 2019-11 PROGRESS HNO ID: [id number] Normal 11-30-2019 [facility] Author: Susana Hartmann (Network Navigator) Lu[place] ([id number]) Service: ? Author Type: Textile Machine Operator Type: Progress Notes Filed: 11/30/2019 2:02 PM [...] CNPTOUTREACH Patient Outreach (AMBCMG) Normal 0 11-30-2019 [place] [facility] ALEXIA MERIDA ([id number]) 1935 M [place] Date Time Provider Department (51780) 11/30/19 SUSANA ESCOBARNETWORK NAVIGATOR[place] [place] During your visit today, we recorded the [...] - Itching Date Reviewed: 10/17/2019 Reviewed by: Dleia Castro LPN - Fully Assessed Reason for [...] electroencephalogram (EEG) [R94.01] 09/22/2019 Encounter Status:Closed by W-21 NETWORK NAVIGATOR, RADHA Hartmann on 11/30/19 progress on 2019-11 PROGRESS HNO ID: [id number] Normal 11-02-2019 [facility] Author: Cecilia Paredes ([id number]) Service: ? Author Type: Registered Nurse Type: Progress Notes Filed: 11/02/2019 1:01 PM Note Text: HIGH RISK CHRONIC DISEASE MONITORING Provider Action/FYI: Pt admitted to [facility] today for orthopedic surgery Contact made with patient: No - Unable to leave message - en tered next patient outreach date for the following week on the same iness day in Track Pt. Outreach - End Outreach Outreach ended cnptoutreach on CNPTOUTREACH Patient Outreach (INTMWS) Normal 0 11-02-2019 [place] [facility] ALEXIA MERIDA ([id number]) [address] [facility] Date Time Provider Department (77958) 11/02/19 CECILIA KATZ During your visit today, we recorded the following informati on about you: Cecilia Cardoza RN 11/02/2019 1:01 PM Signed HIGH RISK CHRONIC DISEASE MONITORING Provider Action/FYI: Pt admitted to [facility] today for orthopedic surgery Contact made [...] 11/02/19 progress on 2019-10 PROGRESS HNO ID: [id number] Normal 10-25-2019 [facility] Author: Irene (Rn) DONTE Jackson ([id number]) Service: ? Author Type: Registered Nurse Type: Progress Notes Filed: 10/25/2019 3:26 PM Note Text: . PROGRESS HNO ID: [id number] Normal 10-25-2019 [facility] Author: Susana ContrerasNetwork Navigator) [place] ([id number]) Service: ? Author Type: Textile Machine Operator Type: Progress Notes Filed: 10/25/2019 12:55 PM Note Text: HIGH RISK CHRONIC DISEASE MONITORING Provider Action/FYI: Call in 1 week Contact made with patient: No - Unable to leave message - en tered next patient outreach date for the following week on the same in Track Pt. Outreach - End Outreach Outreach ended cnptoutreach on CNPTOUTREACH Patient Outreach (AMBCMG) Normal 0 10-25-2019 [place] [facility] ALEXIA MERIDA ([id number]) [address] [facility] Date Time Provider Department ([id number]) 10/25/19 SUSANA ESCOBARNETWORK NAVIGATOR)[facility] During your visit [...] 10/25/19 progress on 2019-10 PROGRESS HNO ID: [id number] Normal 10-17-2019 [facility] Author: Torin Noyola [place] ([id number]) Service: ? Author Type: Physician Type: Progress Notes Filed: 10/17/2019 3:15 PM Note Text: This note was created using [email or web address]. Subjective Patient presents with: Preop Clearance: Right [...] arthroplasty October 31. He was admitted in [place] on e month ago for transient ischemic attack, non STEMI. Information from [place] is limited. He has been doing well, and wishes to proceed with surgery. He was scheduled to see his drug safety specialist in [place] tomorrow. S urgery will be in [place]. Review of Systems Constitutional: Negative for appetite [...] - History of CVA (cerebrovascular accident) 06/04/2017 [facility]: Dr. Yan - Hypertrophy of prostate [...] Take 1 tablet by mouth at be dtiwa as needed for Sedation for up to [...] 6 months. I will defer to his drug safety specialist. See printed instructions or information. See f acsimile form for [facility]. 2. Non-ST elevated myocardial infarction (HCC) - ICD9: 410.7 0, ICD10: I21.4 Per [place] cardiology. 3. Cardiomyopathy, ischemic - ICD9: 414.8, ICD10: I25.5 Per [place] cardiology. 4. Transient ischemic attack (TIA) - ICD9: 435.9, ICD10: G45 .9 See #1. 5. Abnormal electroencephalogram (EEG) - ICD9: 794.02, ICD10 : R94.01 He was advised to follow up with neurology. Torin Noyola MD cnov on 2019-10-17 CNOV Office Visit (INTMWS) Normal 10-17-[address] [place] [address] [facility] MAGNOLIAALEXIA Paul ([id number]) [address] [facility] Date Time Provider Department ([id number]) 10/17/19 2:20 PM TORIN NOYOLA INTMWS During your visit today, we recorded the following informati on about you: Torin Noyola MD 10/17/2019 3:15 PM Signed This note was created using [email or web address]. Subjective Patient presents with: Preop Clearance: Right [...] arthroplasty October 31. He was admitted in [place] one m onth ago for transient ischemic attack, non STEMI. Information from [place] i s limited. He has been doing well, and wishes to proceed with surgery. He was cyn eduled to see his drug safety specialist in [place] tomorrow. Surgery will be in [place] . Review of Systems Constitutional: Negative for [...] 01/22/2005 Ruben Nash MD. [facility]. - CARD DEFIBRILL AUTO IMPLANT IN SITU [...] - History of CVA (cerebrovascular accident) 06/04/2017 [facility]: Dr. Yan - Hypertrophy of prostate [...] 6 months. I will defer to his drug safety specialist. See printed instructions or information. See facsimile form for [facility]. 2. Non-ST elevated myocardial infarction (HCC) [...] 5-6 months. I will defer to your drug safety specialist for clearance. Referring Provider: JOSE TAN [[id number]] Allergies As of Date: 10/17/2019 Noted Allergy [...] 5-6 months. I will defer to your drug safety specialist for clearance. Encounter Status:Closed by TORIN NOYOLA MD on 10/17/19 xr chest 2 views on 2019-10-10 XR CHEST 2 ORIGINAL Normal 10-10-2019 [facility] VIEWS XR CHEST 2 VIEWS [place] ([place]) (19745) CLINICAL STATEMENT: Pre-admi ssion testing , patient [...] Erythrocyte distribution 14.0 11.5-14.5 % Normal 10-09 [facility] width (RBC) [Ratio] [place] ([place]) (49942) Comment: Order Comment: Pre-Admission Testing Performed By: #### APTT, PRO #### [address] [address] Hematocrit (Bld) [Volume 39.3 42.0-52.0 % Low 10-09 [facility] fraction] ([place]) (0000 0) Comment: Order Comment: Pre-Admission Testing Performed By: #### APTT, PRO #### [address] [address] Hemoglobin (Bld) 13.1 14.0-18.0 G/dL Low 10-10-2019 [facility] [Mass/Vol] ([place]) (000 00) Comment: Order Comment: Pre-Admission Testing Performed By: #### APTT, PRO #### [address] [address] MCH (RBC) [Entitic mass] 31.8 27.0-31.2 pg High 10-09 [facility] ([place]) (0000 0) Comment: Order Comment: Pre-Admission Testing Performed By: #### APTT, PRO #### [address] [address] MCHC (RBC) [Mass/Vol] 33.5 31.8-35.4 G/dL Normal 10-10-19 20 [facility] ([place]) (0000 0) Comment: Order Comment: Pre-Admission Testing Performed By: #### APTT, PRO #### [address] [address] MCV (RBC) [Entitic vol] 94.9 80.0-94.0 fL High 2019 [facility] ([place]) (0000 0) Comment: Order Comment: Pre-Admission Testing Performed By: #### APTT, PRO #### [address] [address] Platelet mean volume 8.7 7.4-10.4 fL Normal 0 [facility] (Bld) [Entitic vol] ([place]) (06348) Comment: Order Comment: Pre-Admission Testing Performed By: #### APTT, PRO #### [address] [address] Platelets (Bld) [#/Vol] 221 130-400 10 3/mcL Normal 2019 [facility] ([place]) (13086) Comment: Order Comment: Pre-Admission Testing Performed By: #### APTT, PRO #### [address] [address] RBC (Bld) [#/Vol] 4.14 4.04-6.13 10 6/mcL Normal 10-10-2019 [facility] ([place]) (0000 0) Comment: Order Comment: Pre-Admission Testing Performed By: #### APTT, PRO #### [address] [address] WBC (Bld) [#/Vol] 5.30 4.60-10.80 10 3/mcL Normal 10-10-2019 [facility] ([place]) (16095) Comment: Order Comment: Pre-Admission Testing Performed By: #### APTT, PRO #### [address] [address] bmp on 2019-10-10 Calcium [Mass/Vol] 9.0 8.4-10.2 mg/dL Normal 10-10-2019 [facility] ([place]) (0000 0) Comment: Performed By: #### APTT, PRO #### [address] [address] Chloride [Moles/Vol] 104 98-107 mmol/L Normal 0 [facility] ([place]) (0000 0) Comment: Performed By: #### APTT, PRO #### [address] [address] CO2 [Moles/Vol] 30 23-31 mmol/L Normal 10-10-2019 [facility] ([place]) (29897) Comment: Performed By: #### APTT, PRO #### [address] [address] Creatinine [Mass/Vol] 1.12 0.70-1.30 mg/dL Normal 10-10-19 20 [facility] ([place]) (03724) Comment: Performed By: #### APTT, PRO #### [address] [address] Electrolyte Balance 7.0 mEq/L Normal 10-10-2019 [facility] ([place]) (18477) Comment: Performed By: #### APTT, PRO #### [address] [address] Glucose [Mass/Vol] 92 83-110 mg/dL Normal 10-10-2019 [facility] ([place]) ([address]83) Comment: Performed By: #### APTT, PRO #### [facility] [address] [place] [address] Potassium [Moles/Vol] 4.7 3.5-5.1 mmol/L Normal 10-10-19 [facility] ([place]) (0000 0) Comment: Performed By: #### APTT, PRO #### [facility] [address] [place] [address] Sodium [Moles/Vol] 141 136-145 mmol/L Normal 10-10-2019 [facility] ([place]) (0000 0) Comment: Performed By: #### APTT, PRO #### [address] [address] Urea nitrogen [Mass/Vol] 15 7-18 mg/dL Normal 10-09 [facility] ([place]) (0000 0) Comment: Performed By: #### APTT, PRO #### [address] [address] Urea nitrogen/Creatinine [Mass 13 7-27 ratio Normal 10-10-2019 [facility] ratio] [facility] ([place]) (67075) Comment: Performed By: #### APTT, PRO #### [address] [address] .neuabs on Neutrophils (Bld) 3.80 2.85-6.16 10 3/mcL Normal 10-10-2019 [facility] [#/Vol] [facility] ([place]) (71778) Comment: Performed By: #### APTT, PRO #### [address] [address] .gfr on 2019-10-10 GFR 76 ml/min/1.73sqm Normal [facility] ([place]) (0000 0) Comment: Result Comment: GFR Population mean for Afri can [place]yan, Non- Americans Ages 20-29 = 116 mL/min/1.73 [...] meters Performed By: #### APTT, PRO #### [address] [address] GFR Non- 63 ml/min/1.73sqm Normal 10-10-2019 [facility] ([place]) (78746) Comment: Result Comment: GFR Population mean for Afri can Kenyan, Non- Americans Ages 20-29 = 116 mL/min/1.73 [...] meters Performed By: #### APTT, PRO #### [address] [address] .auto diff on 10-09 Ammonia (P) [Mass/Vol] 0.50 0.15-1.00 10 3/mcL Normal 020 [facility] ([place]) (71055) Comment: Performed By: #### APTT, PRO #### [address] [address] Basophils (Bld) 0.10 0.00-0.19 10 3/mcL Normal 10-10-2019 [facility] [#/Vol] [facility] ([place]) (79414) Comment: Performed By: #### APTT, PRO #### [address] [address] Basophils/100 WBC (Bld) 1.3 0.0-2.5 % Normal 2019 [facility] ([place]) (0000 0) Comment: Performed By: #### APTT, PRO #### [address] [address] Eosinophils (Bld) 0.10 0.00-0.40 10 3/mcL Normal 10-10-2019 [facility] [#/Vol] [facility] ([place]) (02136) Comment: Performed By: #### APTT, PRO #### [address] [address] Eosinophils/100 WBC (Bld) 2.4 0.0-7.0 % Normal -0 -2019 [facility] ([place]) (0000 0) Comment: Performed By: #### APTT, PRO #### [address] [address] Lymphocytes (Bld) 0.80 0.77-3.85 10 3/mcL Normal 10-10-2019 [facility] [#/Vol] [facility] ([place]) (27284) Comment: Performed By: #### APTT, PRO #### [address] [address] Lymphocytes/100 WBC (Bld) 14.3 10.0-50.0 % Normal - [facility] ([place]) (77339) Comment: Performed By: #### APTT, PRO #### [address] [address] Monocytes/100 WBC (Bld) 10.2 1.7-13.0 % Normal 2019 [facility] ([place]) (0000 0) Comment: Performed By: #### APTT, PRO #### [address] [address] Neutrophils/100 WBC (Bld) 71.8 37.0-80.0 % Normal [facility] ([place]) (27779) Comment: Performed By: #### APTT, PRO #### [address] [address] progress on 2019-10 PROGRESS HNO ID: [id number] Normal 10-04-2019 [facility] Author: Ceciliapaul Paredes [place] ([id number]) Service: ? Author Type: Registered Nurse Type: Progress Notes Filed: 10/04/2019 1:19 PM Note Text: HIGH RISK CHRONIC DISEASE MONITORING Provider Action/FYI: Pt covered by TCM post hospitalization. Seeing [facility] 10/16 Contact made with patient: No - Unable to leave message - en tered next patient outreach date for the following week on the same in Track Pt. Outreach - End Outreach- NO CALL Outreach ended cnptoutreach on CNPTOUTREACH Patient Outreach (INTMWS) Normal 0 10-04-2019 [place] [facility] ALEXIA MERIDA ([id number]) [address] [facility] Date Time Provider Department ([id number]) 10/04/19 CECILIA KATZ During your visit today, we recorded the following informati on about you: Cecilia Cardoza RN 10/04/2019 1:19 PM Signed HIGH RISK CHRONIC DISEASE MONITORING Provider Action/FYI: Pt covered by TCM post hospitalization. Seeing [facility] 10/16 Contact made with patient: [...] 10/04/19 progress on 2019-09 PROGRESS HNO ID: [id number] Normal 09-27-2019 [facility] Author: Patience Campbell [facility] ([id number]) Service: ? Author Type: ? Type: Progress Notes Filed: 10/06/2019 9:15 AM Note Text: TRANSITION CARE MANAGEMENT (TCM) INITIAL CONTACT [employer] Outreach Provider Action/FYI: Initial contact with patient post discharge, spoke to jigar woodard Patient identified by name and . TRANSITION CARE MANAGEMENT INITIAL OUTREACH DOCUMENTATION: Date of Outreach: 09/27/2019 09/22/2019 Outreach Attempt 1: Contact Made Contact Not Made Date of Discharge 09/22/2019 09/21/2019 Some recent data might be hidden SUMMARY: -Pt discharged from [place] on 09/22/19. -Admitted for: CVA Do you have a hospital follow up appointment with your PCP? Appointment on 10/17/19 with pcp form a pre op appt clearance . Pt says surgery is still scheduled at this time. He has PAT at [place] 10/10/19. pcp to get these results. Pt is seeing is cardiolist Dr. Jones in the [facility] 10/18/19. Pt says he is seeing Orthopedic [...] CNPTOUTREACH Patient Outreach (INTMWS) Normal 0 09-27-2019 [place] [facility] ALEXIA MERIDA ([id number]) [address] [facility] Date Time Provider Department ([id number]) 09/27/19 TORIN NOYOLA INTMWS During your visit today, we recorded the following informati on about you: Patience Campbell LPN 10/06/2019 9:15 AM Signed TRANSITION CARE MANAGEMENT (TCM) INITIAL CONTACT [employer] Outreach Provider Action/FYI: Initial contact with patient post discharge, spoke to jigar woodard Patient identified by name and . TRANSITION CARE MANAGEMENT INITIAL OUTREACH DOCUMENTATION: Date of Outreach: 09/27/2019 09/22/2019 Outreach Attempt 1: Contact Made Contact Not Made Date of Discharge 09/22/2019 09/21/2019 Some recent data might be hidden SUMMARY: -Pt discharged from [place] on 09/22/19. -Admitted for: CVA Do you have a hospital follow up appointment with your PCP? Appointment on 10/17/19 with pcp form a pre op appt clearance . Pt says surgery is still scheduled at this time. He has PAT at [place] 10/10/19. pcp to get these results. Pt is seeing is cardiolist Dr. Jones in the [place] office 10/18/19. Pt says he is seeing [...] OBSOLETE Refill (INTMWS) Normal 09-23-2019 Uday ad[facility] ALEXIA MERIDA ([id number]) [address] [facility] Date Time Provider Department ([id number]) 09/23/19 TORIN NOYOLA INTMWS During your visit [...] regarding recent cerebral vascular accident and acute PR. Lisinopril dose not changed on discha rge. [...] 09/24/19 progress on 2019-09 PROGRESS HNO ID: [id number] Normal 09-22-2019 [facility] Author: Mary Burgos LPN ([id number]) Service: ? Author Type: ? Type: Progress [...] stay. Mary Burgos LPN PROGRESS HNO ID: [id number] Normal 09-22-2019 [facility] Author: Patience Campbell LPN ([id number]) Service: ? Author Type: ? Type: Progress Notes Filed: 09/22/2019 4:14 PM Note Text: 1. Message left for pt to return call to a nurse to complete TCM note. rec'd records from [place] regarding admission. No d/c summa ry yet. 2. Pt is scheduled for an in office appt with Dr. [place]. Mandy melchor review with pt. This can be cancelled and arrange TCM with pcp. pcp has available time to see pt. pro on 2019-09-22 INR Coag (PPP) [Relative 1.0 ratio Normal 09-21 [facility] time] ([place]) (0000 0) Comment: Result Comment: [employer] [place] [employer] (CHEST, 1992, 102:312S-25S) recommended therapeutic rang e for oral anticoagulant therapy is: LOW RISK: Prophylaxis of manfred ous thrombosis INR: 2.0-3.0 Treatment of pulmonary embol ism 2.0-3.0 Prevention of systemic embol ism 2.0-3.0 HIGH RISK: Mechanical prosth etic valves 2.5-3.5 Performed By: #### APTT, PRO #### [facility] [address] [place] [address] PT Coag (PPP) [Time] 11.9 9.0-14.6 seconds Normal 0 [facility] ([place]) (12835) Comment: Result Comment: Effective , Protime results may be affected by some antibiotics (i.e. Ciprofloxa joshua, Azithromycin, Bactrim) which may potentiate the action of oral anticoagu lants, with further increases in Protime/INR. Performed By: #### APTT, PRO #### [facility] [address] [place] [address] mg on 2019-09-22 Magnesium [Mass/Vol] 2.3 1.6-2.4 mg/dL Normal 0 [facility] ([place] (0000 0) Comment: Performed By: #### APTT, PRO #### [facility] [address] [place] [address] cnptoutreach on CNPTOUTREACH Patient Outreach (INTMWS) Normal 0 09-22-2019 [place] ALEXIA Perera ([id number]) 1935 [address] [place] Date Time Provider Department ([id number]) 09/22/19 TORIN NOYOLA INTMWS During your visit today, we recorded the following informati on about you: Patience Campbell LPN 09/22/2019 4:14 PM Signed 1. Message left for pt to return call to a nurse to co mplete TCM note. rec'd records from [place] regarding admission. No d/c summary yet . [...] Erythrocyte distribution 13.9 11.5-15.5 % Normal 09-21 [facility] width (RBC) [Ratio] [facility] ([place]) (84345) Comment: Performed By: #### APTT, PRO #### [address] [address] Hematocrit (Bld) [Volume 40.2 40.0-52.0 % Normal 09-21 [facility] fraction] ([place]) (0000 0) Comment: Performed By: #### APTT, PRO #### [address] [address] Hemoglobin (Bld) 13.7 13.0-17.5 G/dL Normal 09-22-2019 [facility] [Mass/Vol] [facility] [facility] ([place] (30049) Comment: Performed By: #### APTT, PRO #### [address] [address] MCH (RBC) [Entitic mass] 32.2 27.0-33.0 pg Normal 09-21 [facility] ([place]) (0000 0) Comment: Performed By: #### APTT, PRO #### [address] [address] MCHC (RBC) [Mass/Vol] 34.1 32.0-36.0 G/dL Normal 09-22-19 [facility] ([place]) (0000 0) Comment: Performed By: #### APTT, PRO #### [address] [address] MCV (RBC) [Entitic vol] 94.5 81.0-100.0 fL Normal 09-21 [facility] ([place]) (0000 0) Comment: Performed By: #### APTT, PRO #### [address] [address] Platelet mean volume 8.3 6.4-10.5 fL Normal 0 [facility] ([place]ld) [Entitic vol] ([place]) (88945) Comment: Performed By: #### APTT, PRO #### [address] [address] Platelets (Bld) [#/Vol] 222 150-450 10 3/mcL Normal 2019 [facility] ([place]) (59262) Comment: Performed By: #### APTT, PRO #### [address] [address] RBC (Bld) [#/Vol] 4.25 4.50-6.00 10 6/mcL Low 09-22-2019 Pending sale to [facility] ([place]) (0000 0) Comment: Performed By: #### APTT, PRO #### [address] [address] WBC (Bld) [#/Vol] 6.30 4.50-10.80 10 3/mcL Normal 09-22-2019 [facility] ([place]) (10228) Comment: Performed By: #### APTT, PRO #### [place] [id number] Erythrocyte distribution 13.5 11.5-15.5 % Normal 09-21 [facility] (RBC) [Ratio] [place] ([place]) (31124) Comment: Performed By: #### APTT, PRO #### [address] [address] Hematocrit (Bld) [Volume 36.0 40.0-52.0 % Low 09-21 [facility] fraction] ([place]) (0000 0) Comment: Performed By: #### APTT, PRO #### [address] [address] Hemoglobin (Bld) 12.2 13.0-17.5 G/dL Low 09-22-2019 [facility] [Mass/Vol] ([place]) (000 00) Comment: Performed By: #### APTT, PRO #### [address] [address] MCH (RBC) [Entitic mass] 32.3 27.0-33.0 pg Normal 09-21 [facility] ([place]) (0000 0) Comment: Performed By: #### APTT, PRO #### [place] [address] MCHC (RBC) [Mass/Vol] 33.9 32.0-36.0 G/dL Normal 09-22-19 20 [facility] ([place]) (0000 0) Comment: Performed By: #### APTT, PRO #### [place] [id number] MCV (RBC) [Entitic vol] 95.4 81.0-100.0 fL Normal 09-21 [facility] ([place]) (0000 0) Comment: Performed By: #### APTT, PRO #### [place] [address] Platelet mean volume 8.3 6.4-10.5 fL Normal 0 [facility] ([place]) [Entitic vol] ([place]) (72449) Comment: Performed By: #### APTT, PRO #### [address] [address] Platelets (Bld) [#/Vol] 191 150-450 10 3/mcL Normal 2019 [facility] ([place]) (78558) Comment: Performed By: #### APTT, PRO #### [place] [id number] RBC (Bld) [#/Vol] 3.77 4.50-6.00 10 6/mcL Low 09-22-2019 [facility] ([place]) (0000 0) Comment: Performed By: #### APTT, PRO #### [address] [address] WBC (Bld) [#/Vol] 6.30 4.50-10.80 10 3/mcL Normal 09-22-2019 [facility] ([place]) (99669) Comment: Performed By: #### APTT, PRO #### [address] [address] bmp on 2019-09-22 Creatinine [Mass/Vol] 0.96 0.60-1.40 mg/dL Normal 09-22-19 20 [facility] ([place]) (69766) Comment: Performed By: #### APTT, PRO #### [address] [address] Urea nitrogen/Creatinine 15.6 10.0-22.0 ratio Normal 09-21 [facility] [Mass ratio] [place] ([place]) (78099) Comment: Performed By: #### APTT, PRO #### [address] [address] Calcium [Mass/Vol] 8.6 8.4-10.1 mg/dL Normal 09-22-2019 [facility] ([place]) (0000 0) Comment: Performed By: #### APTT, PRO #### [address] [address] Chloride [Moles/Vol] 108 98-110 mEq/L Normal 0 [facility] ([place]) (0000 0) Comment: Performed By: #### APTT, PRO #### [address] [address] CO2 [Moles/Vol] 23 22-32 mEq/L Normal 09-22-2019 [facility] ([place]) (15615) Comment: Performed By: #### APTT, PRO #### [address] [address] Electrolyte Balance 9.0 4.0-15.0 mEq/L Normal 09-22-2019 [facility] ([place]) (0000 0) Comment: Performed By: #### APTT, PRO #### [address] [address] Glucose [Mass/Vol] 103 82-115 mg/dL Normal 09-22-2019 [facility] ([place]) (27581) Comment: Performed By: #### APTT, PRO #### [address] [address] Potassium [Moles/Vol] 3.5 3.5-5.0 mEq/L Normal 09-22-19 20 [facility] ([place]) (0000 0) Comment: Performed By: #### APTT, PRO #### [address] [address] Sodium [Moles/Vol] 140 136-145 mEq/L Normal 09-22-2019 [facility] ([place] (28542) Comment: Performed By: #### APTT, PRO #### [address] [address] Urea nitrogen [Mass/Vol] 15.0 8.0-22.0 mg/dL Normal 09-21 [facility] ([place]) (63887) Comment: Performed By: #### APTT, PRO #### [address] [address] aptt on 2019-09-22 aPTT Coag (Bld) 30.6 25.0-35.0 seconds Normal 09-22-2019 [facility] [Time] [facility] ([place]) (04719) Comment: Result Comment: For Heparin anticoagulation therapy, the recommended therapeutic range is: 54-77 seconds (APTT Correlation with Anti-Xa therapeutic ran ge of 0.3-0.7 units/ml). PLEASE REFERENCE THE PHARMAC Y PROTOCOL FOR DOSING. Performed By: #### APTT, PRO #### [address] [address] aPTT Coag (Bld) [Time] Heparin IV Normal 2019 [facility] ([place] (0000 0) Comment: Performed By: #### APTT, PRO #### [address] [address] .neuabs on Neutrophils (Bld) 4.70 2.25-8.10 10 3/mcL Normal 09-22-2019 [facility] [#/Vol] [facility] ([place] (38543) Comment: Performed By: #### APTT, PRO #### [address] [address] Neutrophils (Bld) 4.50 2.25-8.10 10 3/mcL Normal 09-22-2019 [facility] [#/Vol] [facility] ([place]) (04455) Comment: Performed By: #### APTT, PRO #### [facility] [address] [place] [address] .gfr on 2019-09-22 GFR >60 Normal 09-21- 0 [facility] ([place]) (24221) Comment: Result Comment: GFR Population mean for Afri can [place]yan, Non- Americans Ages 20-29 = 116 mL/min/1.73 [...] meters Performed By: #### APTT, PRO #### [facility] [address] [place] [address] GFR Non- >60 Normal 09-21 [facility] ([place]) (49384) Comment: Result Comment: GFR Population mean for Afri can [place]yan, Non- Americans Ages 20-29 = 116 mL/min/1.73 [...] meters Performed By: #### APTT, PRO #### [facility] [address] [place] [address] .auto diff on 09-21 Ammonia (P) [Mass/Vol] 0.60 0.09-1.40 10 3/mcL Normal 020 [facility] ([place]) (23578) Comment: Performed By: #### APTT, PRO #### [address] [address] Basophils (Bld) 0.10 0.00-0.27 10 3/mcL Normal 09-22-2019 [facility] [#/Vol] [facility] ([place] (22436) Comment: Performed By: #### APTT, PRO #### [address] [address] Basophils/100 WBC (Bld) 0.9 0.0-2.5 % Normal 2019 [facility] ([place] (0000 0) Comment: Performed By: #### APTT, PRO #### [address] [address] Eosinophils (Bld) 0.20 0.00-0.65 10 3/mcL Normal 09-22-2019 [facility] [#/Vol] [facility] ([place] (48545) Comment: Performed By: #### APTT, PRO #### [address] [address] Eosinophils/100 WBC (Bld) 2.7 0.0-6.0 % Normal 09-02 [facility] ([place] (0000 0) Comment: Performed By: #### APTT, PRO #### [address] [address] Lymphocytes (Bld) 0.80 0.90-4.32 10 3/mcL Low 09-22-2019 [facility] [#/Vol] [facility] ([place] (59924) Comment: Performed By: #### APTT, PRO #### [address] [address] Lymphocytes/100 WBC (Bld) 12.9 20.0-40.0 % Low 09-02 [facility] ([place] (0000 0) Comment: Performed By: #### APTT, PRO #### [address] [address] Monocytes/100 WBC (Bld) 9.5 2.0-13.0 % Normal 2019 [facility] ([place] (0000 0) Comment: Performed By: #### APTT, PRO #### [address] [address] Neutrophils/100 WBC (Bld) 74.0 50.0-75.0 % Normal 09-02 [facility] ([place] (43500) Comment: Performed By: #### APTT, PRO #### [address] [address] Ammonia (P) [Mass/Vol] 0.70 0.09-1.40 10 3/mcL Normal 020 [facility] ([place] (75259) Comment: Performed By: #### APTT, PRO #### [address] [address] Basophils (Bld) 0.00 0.00-0.27 10 3/mcL Normal 09-22-2019 [facility] [#/Vol] [facility] ([place] (55287) Comment: Performed By: #### APTT, PRO #### [address] [address] Basophils/100 WBC (Bld) 0.6 0.0-2.5 % Normal 2019 [facility] ([place] (0000 0) Comment: Performed By: #### APTT, PRO #### [address] [address] Eosinophils (Bld) 0.20 0.00-0.65 10 3/mcL Normal 09-22-2019 [facility] [#/Vol] [facility] ([place] (45336) Comment: Performed By: #### APTT, PRO #### [address] [address] Eosinophils/100 WBC (Bld) 2.9 0.0-6.0 % Normal 09-02 [facility] ([place] (0000 0) Comment: Performed By: #### APTT, PRO #### [address] [address] Lymphocytes (Bld) 0.90 0.90-4.32 10 3/mcL Normal 09-22-2019 [facility] [#/Vol] [facility] ([place]) (67253) Comment: Performed By: #### APTT, PRO #### [place] 6[address]100 [address] [place] [address] Lymphocytes/100 WBC (Bld) 14.5 20.0-40.0 % Low - [facility] ([place]) (0000 0) Comment: Performed By: #### APTT, PRO #### [address] [address] Monocytes/100 WBC (Bld) 10.4 2.0-13.0 % Normal 2019 [facility] ([place]) (0000 0) Comment: Performed By: #### APTT, PRO #### [address] [address] Neutrophils/100 WBC (Bld) 71.6 50.0-75.0 % Normal - [facility] ([place] (56450) Comment: Performed By: #### APTT, PRO #### [address] [address] tropi on 2019-09-21 Troponin I.cardiac 2.120 0.000-0.040 ng/mL [facility] 0 [facility] [Mass/Vol] [place] [facility] [place] (40522) Comment: Result Comment: Troponin I r eference ranges (01/09/14): 0.00-0.040 ng/mL Negative an d non-diagnostic. >0.040 ng/mL Consistent with cardiac damage, increased clinical risk and possibility of myocardial in farction. Serial measurements, a rise & fall in test results, clinical histo ry, appropriate symptoms and/or ECG changes may help assess possibility of PR. *Other non-acute coronary sy ndrome conditions such as CHF, myoc arditis, pulmonary emboli, sepsis and cardiac surgery could result in myoc ardial damage and increased troponi n levels. Performed By: #### APTT, PRO #### [facility] [address] [place] [address] Troponin I.cardiac 2.180 0.000-0.040 ng/mL High 0 [facility] [employer] [Mass/Vol] [place] [facility] [place] (59082) Comment: Result Comment: Troponin I r eference ranges (01/09/14): 0.00-0.040 ng/mL Negative an d non-diagnostic. >0.040 ng/mL Consistent with cardiac damage, increased clinical risk and possibility of myocardial in farction. Serial measurements, a rise & fall in test results, clinical histo ry, appropriate symptoms and/or ECG changes may help assess possibility of PR. *Other non-acute coronary sy ndrome conditions such as CHF, myoc arditis, pulmonary emboli, sepsis and cardiac surgery could result in myoc ardial damage and increased troponi n levels. Performed By: #### TROPI ### # [address] [address] Troponin I.cardiac 2.690 0.000-0.040 ng/mL High 0 [place] [employer] [Mass/Vol] [employer] ([place]) (07718) Comment: Result Comment: Troponin I r eference ranges (01/09/14): 0.00-0.040 ng/mL Negative an d non-diagnostic. >0.040 ng/mL Consistent with cardiac damage, increased clinical risk and possibility of myocardial in farction. Serial measurements, a rise & fall in test results, clinical histo ry, appropriate symptoms and/or ECG changes may help assess possibility of PR. *Other non-acute coronary sy ndrome conditions such as CHF, myoc arditis, pulmonary emboli, sepsis and cardiac surgery could result in myoc ardial damage and increased troponi n levels. Performed By: #### TROPI ### # [address] [address] mg on 2019-09-21 Magnesium [Mass/Vol] 2.4 1.6-2.4 mg/dL Normal 0 [facility] ([place]) (0000 0) Comment: Performed By: #### CBC, ADIF F, ANEU, MG, BMP, GFR #### [address] [address] [address] head or brain w/o contrast on 2019-09-21 CT HEAD OR BRAIN ORIGINAL Normal 09-21-2019 [facility] W/O CONTRAST Head CT [place] ([place]) (04769) INDICATION: stroke f/u COMPARISON: Outside CT previous [...] Erythrocyte distribution 13.4 11.5-15.5 % Normal 09-20 [facility] width (RBC) [Ratio] [place] ([place]) (22250) Comment: Performed By: #### CBC, ADIF F, ANEU, MG, BMP, GFR #### [address] [address] Hematocrit (Bld) [Volume 37.1 40.0-52.0 % Low 09-20 [facility] fraction] ([place]) (0000 0) Comment: Performed By: #### CBC, ADIF F, ANEU, MG, BMP, GFR #### [address] [address] Hemoglobin (Bld) 12.9 13.0-17.5 G/dL Low 09-21-2019 [facility] [Mass/Vol] ([place]) (000 00) Comment: Performed By: #### CBC, ADIF F, ANEU, MG, BMP, GFR #### [address] [address] MCH (RBC) [Entitic mass] 32.2 27.0-33.0 pg Normal 09-20 [facility] ([place]) (0000 0) Comment: Performed By: #### CBC, ADIF F, ANEU, MG, BMP, GFR #### [place] [address] MCHC (RBC) [Mass/Vol] 34.7 32.0-36.0 G/dL Normal 09-21-19 20 [facility] ([place]) (0000 0) Comment: Performed By: #### CBC, ADIF F, ANEU, MG, BMP, GFR #### [place] [address] MCV (RBC) [Entitic vol] 93.0 81.0-100.0 fL Normal 09-20 [facility] ([place] (0000 0) Comment: Performed By: #### CBC, ADIF F, ANEU, MG, BMP, GFR #### [place] [address] Platelet mean volume 8.4 6.4-10.5 fL Normal 0 [facility] ([place]ld) [Entitic vol] ([place]) (86214) Comment: Performed By: #### CBC, ADIF F, ANEU, MG, BMP, GFR #### [place] [id number] Platelets (Bld) [#/Vol] 215 150-450 10 3/mcL Normal 2019 [facility] ([place]) (15786) Comment: Performed By: #### CBC, ADIF F, ANEU, MG, BMP, GFR #### [place] [address] RBC (Bld) [#/Vol] 3.99 4.50-6.00 10 6/mcL Low 09-21-2019 Pending [facility] to [facility] ([place]) (0000 0) Comment: Performed By: #### CBC, ADIF F, ANEU, MG, BMP, GFR #### [place] [id number] WBC (Bld) [#/Vol] 6.60 4.50-10.80 10 3/mcL Normal 09-21-2019 [facility] ([place]) (81939) Comment: Performed By: #### CBC, ADIF F, ANEU, MG, BMP, GFR #### [address] [address] bmp on 2019-09-21 Creatinine [Mass/Vol] 0.90 0.60-1.40 mg/dL Normal 09-21-19 20 [facility] ([place] (18872) Comment: Performed By: #### CBC, ADIF F, ANEU, MG, BMP, GFR #### [address] [address] Urea nitrogen/Creatinine 13.3 10.0-22.0 ratio Normal 09-20 [facility] [Mass ratio] [facility] ([place] (45832) Comment: Performed By: #### CBC, ADIF F, ANEU, MG, BMP, GFR #### [address] [address] Calcium [Mass/Vol] 8.6 8.4-10.1 mg/dL Normal 09-21-2019 [facility] ([place] (0000 0) Comment: Performed By: #### CBC, ADIF F, ANEU, MG, BMP, GFR #### [address] [address] Chloride [Moles/Vol] 107 98-110 mEq/L Normal 0 [facility] ([place]) (0000 0) Comment: Performed By: #### CBC, ADIF F, ANEU, MG, BMP, GFR #### [address] [address] CO2 [Moles/Vol] 26 22-32 mEq/L Normal 09-21-2019 [facility] ([place]) (41805) Comment: Performed By: #### CBC, ADIF F, ANEU, MG, BMP, GFR #### [address] [address] Electrolyte Balance 8.0 4.0-15.0 mEq/L Normal 09-21-2019 [facility] ([place] (0000 0) Comment: Performed By: #### CBC, ADIF F, ANEU, MG, BMP, GFR #### [place] [id number] Glucose [Mass/Vol] 111 82-115 mg/dL Normal 09-21-2019 [facility] ([place] (99582) Comment: Performed By: #### CBC, ADIF F, ANEU, MG, BMP, GFR #### [place] [id number] Potassium [Moles/Vol] 3.3 3.5-5.0 mEq/L Low 09-21-19 20 [facility] ([place] (76040) Comment: Performed By: #### CBC, ADIF F, ANEU, MG, BMP, GFR #### [place] [address] Sodium [Moles/Vol] 141 136-145 mEq/L Normal 09-21-2019 [facility] ([place] ([address]86) Comment: Performed By: #### CBC, ADIF F, ANEU, MG, BMP, GFR #### [address] [address] Urea nitrogen [Mass/Vol] 12.0 8.0-22.0 mg/dL Normal 09-20 [facility] ([place] (64573) Comment: Performed By: #### CBC, ADIF F, ANEU, MG, BMP, GFR #### [address] [address] .neuabs on Neutrophils (Bld) 5.00 2.25-8.10 10 3/mcL Normal 09-21-2019 [facility] [#/Vol] [facility] ([place]) ([address]648) Comment: Performed By: #### CBC, ADIF F, ANEU, MG, BMP, GFR #### [address] [address] .gfr on 2019-09-21 GFR Non- >60 Normal 09-20 [facility] ([place] (96783) Comment: Result Comment: GFR Population mean for Afri can Kenyan, Non- Americans Ages 20-29 = 116 mL/min/1.73 [...] meters Performed By: #### APTT, PRO #### [address] [address] GFR >60 Normal 0 [facility] ([place] (97934) Comment: Result Comment: GFR Population mean for Afri can Kenyan, Non- Americans Ages 20-29 = 116 mL/min/1.73 [...] meters Performed By: #### APTT, PRO #### [address] [address] .auto diff on 09-20 Ammonia (P) [Mass/Vol] 0.60 0.09-1.40 10 3/mcL Normal 09-20- 020 [facility] ([place]) (41510) Comment: Performed By: #### CBC, ADIF F, ANEU, MG, BMP, GFR #### [place] [address] Basophils (Bld) 0.10 0.00-0.27 10 3/mcL Normal 09-21-2019 [facility] [#/Vol] [facility] ([place] (64338) Comment: Performed By: #### CBC, ADIF F, ANEU, MG, BMP, GFR #### [address] [address] Basophils/100 WBC (Bld) 0.8 0.0-2.5 % Normal 2019 [facility] ([place] (0000 0) Comment: Performed By: #### CBC, ADIF F, ANEU, MG, BMP, GFR #### [address] [address] Eosinophils (Bld) 0.10 0.00-0.65 10 3/mcL Normal 09-21-2019 [facility] [#/Vol] [facility] ([place] (75687) Comment: Performed By: #### CBC, ADIF F, ANEU, MG, BMP, GFR #### [address] [address] Eosinophils/100 WBC (Bld) 2.1 0.0-6.0 % Normal 09-02 [facility] ([place] (0000 0) Comment: Performed By: #### CBC, ADIF F, ANEU, MG, BMP, GFR #### [address] [address] Lymphocytes (Bld) 0.80 0.90-4.32 10 3/mcL Low 09-21-2019 [facility] [#/Vol] [facility] ([place] (14805) Comment: Performed By: #### CBC, ADIF F, ANEU, MG, BMP, GFR #### [address] [address] Lymphocytes/100 WBC (Bld) 11.8 20.0-40.0 % Low 05- 0-2019 [facility] ([place] (0000 0) Comment: Performed By: #### CBC, ADIF F, ANEU, MG, BMP, GFR #### [address] [address] Monocytes/100 WBC (Bld) 9.8 2.0-13.0 % Normal 2019 [facility] ([place] (0000 0) Comment: Performed By: #### CBC, ADIF F, ANEU, MG, BMP, GFR #### [facility] [address] [place] [address] Neutrophils/100 WBC (Bld) 75.5 50.0-75.0 % High 09-02 0 [facility] ([place]) (0000 0) Comment: Performed By: #### CBC, ADIF F, ANEU, MG, BMP, GFR #### [facility] [address] [place] [address] tropi on 2019-09-20 Troponin I.cardiac 3.310 0.000-0.040 ng/mL High 0 [facility] [Mass/Vol] [facility] ([place] (21858) Comment: Result Comment: Troponin I r eference ranges (01/09/14): 0.00-0.040 ng/mL Negative an d non-diagnostic. >0.040 ng/mL Consistent with cardiac damage, increased clinical risk and possibility of myocardial in farction. Serial measurements, a rise & fall in test results, clinical histo ry, appropriate symptoms and/or ECG changes may help assess possibility of PR. *Other non-acute coronary sy ndrome conditions such as CHF, myoc arditis, pulmonary emboli, sepsis and cardiac surgery could result in myoc ardial damage and increased troponi n levels. Performed By: #### TROPI ### # [facility] [address] [place] [address] progress on 2019-09 PROGRESS HNO ID: [id number] Normal 09-20-2019 [place] Author: Tiffany Morrison RN Clinic Service: ? [place] Author Type: ? (0000 0) Type: Progress Notes Filed: 09/20/2019 1:25 PM Note Text: COVID-19 Suspect PATIENT OUTREACH DAILY CALL Monitoring Call: Day 4 from symptom onset 09/17/19 Currently admitted to [facility]. Negative for covid per spouse (patient went to [facility] testin site) Aware that covid outreach is completed. advised to speak with or weekend caregiver prior to d ischarge so f/u appt can be made. Tawny, this is the [facility] calling, may I speak to Alexia Merida [...] [facility] patients may call: ? [facility] Nurse extrusion technician at [phone] ? Their PCP Office Caregivers may call: ? [facility] Employee Hotline: [phone] [facility] Employee Boost appointment for 24/11 emotional support: Patient verbalizes understanding of information provided. Dilles any further questions at this time. Please visit CDC.gov website for any updated information abo ut Coronavirus. You can also find information on the [facility] website. Additional information can be found on the CDC and [facility] web sites: https://www.cdc.gov/coronavirus/2019-nCoV/index.html https://[facility].org/coronavirus SIGNATURE: Tiffany Morrison RN PATIENT NAME: Alexia Merida DATE: September 20, 2019 TIME: 1:09 PM pro on 2019-09-20 INR Coag (PPP) [Relative 1.1 ratio Normal 09-19 [facility] time] ([place]) (0000 0) Comment: Result Comment: The [place] [employer] (CHEST, 1992, 102:312S-25S) recommended therapeutic rang e for oral anticoagulant therapy is: LOW RISK: Prophylaxis of manfred ous thrombosis INR: 2.0-3.0 Treatment of pulmonary embol ism 2.0-3.0 Prevention of systemic embol ism 2.0-3.0 HIGH RISK: Mechanical prosth etic valves 2.5-3.5 Performed By: #### APTT, PRO #### [place] [address] PT Coag (PPP) [Time] 13.0 9.0-14.6 seconds Normal 0 [facility] ([place]) (23507) Comment: Result Comment: Effective , Protime results may be affected by some antibiotics (i.e. Ciprofloxa joshua, Azithromycin, Bactrim) which may potentiate the action of oral anticoagu lants, with further increases in Protime/INR. Performed By: #### APTT, PRO #### [facility] [address] [place] [address] cnptoutreach on 0 CNPTOUTREACH Patient Outreach (INTMSO) Normal 0 09-20-2019 [place] [facility] ALEXIA MERIDA ([id number]) [address] [facility] Date Time Provider Department ([id number]) 09/20/19 TIFFANY MORRISON (RN) INTMSO During your visit today, we recorded the following informati on about you: Tiffany Morrison RN 09/20/2019 1:25 PM Addendum COVID-19 Suspect PATIENT OUTREACH DAILY CALL Monitoring Call: Day 4 from symptom onset 09/17/19 Currently admitted to [facility]. Negative for covid per spouse (patient went to [facility] testin site) Aware that covid outreach is completed. advised to speak with or weekend caregiver prior to discharge so f/u appt can be made. Tawny, this is the [facility] calling, may I speak t o Alexia [...] [facility] patients may call: ? [facility] Nurse extrusion technician at [phone] ? Their PCP Office Caregivers may call: ? [facility] Employee Hotline: [phone] [facility] Employee Boost appointment for 24/11 emotional support: Patient verbalizes understanding of information provid ed. Denies any further questions at this time. Please visit CDC.gov website for any updated information about Coronavirus. You can also find information on the [facility] website. Additional information can be found on [facility] and [facility] web sites: https://www.cdc.gov/coronavirus/2019-nCoV/index.html https://[facility].org/coronavirus SIGNATURE: Tiffany Morrison RN PATIENT NAME: Alexia [...] up [Other] Cmt: per , admitted to [facility] and outside lab negative for covid [...] Coag (Bld) 29.5 25.0-35.0 seconds Normal 09-20-2019 [facility] [Time] [facility] ([place] (66970) Comment: Result Comment: For Heparin anticoagulation therapy, the recommended therapeutic range is: 54-77 seconds (APTT Correlation with Anti-Xa therapeutic ran ge of 0.3-0.7 units/ml). PLEASE REFERENCE THE PHARMAC Y PROTOCOL FOR DOSING. Performed By: #### APTT, PRO #### [address] [address] aPTT Coag (Bld) [Time] None Normal 020 [facility] ([place]) (74846) Comment: Performed By: #### APTT, PRO #### [address] [address] progress on 2019-09 PROGRESS HNO ID: [id number] Normal 09-19-2019 [facility] Author: Davida Crawford) DONTE Johnson [place] ([id number]) Service: ? Author Type: Registered Nurse Type: Progress Notes Filed: 09/19/2019 3:43 PM Note Text: HIGH RISK CHRONIC DISEASE MONITORING Provider Action/FYI: Contact made with patient: Yes Patient identified by name and . Discussed care with patient Hi my name is Davida Johnson RN and I am calling from the [facility] on behalf of your PCP, [...] like to speak with a social work steam oven operator to help give you support for any [...] and [facility] Our team would like to stay [...] Track Pt Outreach section. PROGRESS HNO ID: [id number] Normal 09-19-2019 [facility] Author: Ilana Chua RN [place] ([id number]) Service: ? Author Type: ? Type: Progress Notes Filed: 09/19/2019 12:57 PM Note Text: [id number] Voice Message - Day 3 since symptom onset on 09-17-19. Hello, this is the [facility] calling. We are sorry we missed you, but your care is important to us . We would like to follow [facility] M[facility] Machine Tender yanet burris. Please take a moment to complete the questionnaire daily. If any of your symptoms have worsened, please call you PCP o archieice to discuss. [facility] and NON CCF patients may call: ? [facility] Nurse extrusion technician at [phone] ? Their PCP Office Caregivers may call: ? [facility] Employee Hotline: [phone] ? [facility] Employee Boost appointment for 24/11 emotional support: [phone] If you are finding it more difficult to breathe, or more dayana rt of breath when walking or climbing stairs, please go to the nearest ED . SIGNATURE: Ilana Chua RN PATIENT NAME: Alxeia Merida DATE: September 19, 2019 TIME: 12:51 PM cnptoutreach on CNPTOUTREACH Patient Outreach (AMB BPA) Normal 09-19-2019 [place] [facility] ALEXIA MERIDA ([id number]) 1935 M [facility] Time Provider Department ([id number]) 09/19/19 ILANA CHUA (RN) AMB BPA During your visit today, we recorded the following informati on about you: Ilana Chua RN 09/19/2019 12:57 PM Signed [id number] Voice Message - Day 3 since symptom onset on 09-17-19. Tawny, this is the [facility] calling. We are sorry we missed you, but your care is important to us . We would like to follow up on your MyChart Molding Machine Tender yanet burris. Please take a moment to complete the questionnaire daily. If any of your symptoms have worsened, please ca ll you PCP office to discuss. [facility] and NON [facility]CF patients may call: ? [facility] Nurse extrusion technician at [phone] ? Their PCP Office Caregivers may call: ? [facility] Employee Hotline: [phone] ? [facility] Employee Boost appointment for 24/11 emotional support: [phone] If you are finding it more difficult [...] Assessed Reason for Visit: Covid Follow Up [8025] Prescriptions as of 09/19/2019 Sig: ZOLPIDEM 5 [...] CNPTOUTREACH Patient Outreach (AMBCMG) Normal 0 09-19-2019 [place] [facility] ALEXIA MERIDA ([id number]) [address] [facility] Date Time Provider Department ([id number]) 09/19/19 DAVIDA JOHNSON (RN) [facility] [place] During your visit today, we recorded the following informati on about you: Davida Johnson RN, RN 09/19/2019 3:43 PM Signed HIGH RISK CHRONIC DISEASE MONITORING Provider Action/FYI: Contact made with patient: Yes Patient identified by name and . Discussed care with patient Hi my name is Davida Johnson RN and I am calling from the [facility] on behalf of your PCP, Torin Noyola [...] like to speak with a social work steam oven operator to help give you support for any [...] and out of the doctor's office or [facility]. Our team would like to stay connected [...] 09/19/19 progress on 2019-09 PROGRESS HNO ID: [id number] Normal 09-18-2019 [facility] Author: Cecilia Crawford) DONTE Olivo [place] Service: ? ([id number]) Author Type: Registered Nurse Type: Progress Notes Filed: 09/18/2019 2:17 PM Note Text: Summary: Both contact numbers would not accept calls from pr ivate number. Patient has covid test ordered. [id number] Voice Message Tawny, this is the [facility] calling. We are sorry we missed you, but your care is important to us . We would like to follow up on your MyChart Molding Machine Tender re sponse. Please take a moment to complete the questionnaire daily. If any of your symptoms have worsened, please call you PCP o ffice to discuss. [facility] and NON [facility]CF patients may call: ? [facility] Nurse extrusion technician at [phone] ? Their PCP Office Caregivers may call: ? [facility] Employee Hotline: [phone] ? [facility] Employee Boost appointment for 24/11 emotional support: [phone] If you are finding it more difficult to breathe, or more dayana rt of breath when walking or climbing stairs, please go to the nearest ED . SIGNATURE: Cecilia Olivo RN PATIENT NAME: Alexia Merida DATE: September 18, 2019 TIME: 2:14 PM coronavirus [ccl] o n 2019-09-18 COVID 19 Result PROM BURN OFF OPERATOR Negative CORNEG Normal 09-18-[address] [facility] ( [address]) Comment: Result Comment: Negative for COVID19 (SARS CoV2) by PCR. This test was developed and its performance characteristics determined by [facility] [place]. This test has bee n authorized by FDA under an Emergency Use Authorization (EUA). This test has been validated in accordance with the FDA's Guidance Document Policy for Diagnostics Test ing in Laboratories Certified to Perform High Complexity Testing under CLI A prior to Emergency use Authorization for Coronavirus Disease 2019 dur ing the Public Health Emergency issued on July 02, 2019. [facility] [address] [place] [address] Blake Lyles III, M.D. [id number] Performed By: #### [id number] ## ## [facility],[address] [place], [place] [id number] COVID 19 Source PROM BURN OFF OPERATOR Nasopharyngeal Swab Normal 0 09-18-[address] [facility] ( 49293) Comment: Performed By: #### [id number] ## ## [facility],[address] [place] [address] coronavirus 2019 on 2019-09-18 COVID 19 Result PROM BURN OFF OPERATOR Negative for COVID19 Normal 09-18-2019 [facility] (SARS CoV2) by PCR. Reference Lab ([id number]) Comment: Result Comment: Negative for This test was developed and its performance characteristics determined by [facility]'s [facility] [place]. This test has been authorized by FDA [...] developed and its performance characteristics determined by [facility] [place]. This test has been authorized by FDA [...] developed and its performance characteristics determined by [facility] [place]. This test has been authorized by FDA under an Emergency Use Authorization (EUA). This test has been validated in accordance with the FDA's Guidance Document Policy for Diagnostics Testing in Laboratories Certified to Perform High Complexity Testing under CLIA prior to Emergency use Authorization for Coronavir us Disease 2019 during the Public Health Emergency issued on July 02, 2019. COVID 19 Source PROM BURN OFF OPERATOR PROM BURN OFF OPERATOR Normal 09-18-2019 [facility] ([id number]) cnptoutreach on CNPTOUTREACH Patient Outreach (INTMMN) Normal 0 09-18-2019 [place] [facility] ALEXIA MERIDA ([id number]) 1935 M [place] Date Time Provider Department (56310) 09/18/19 CECILIA OLIVO (RN) INTMMN During your visit today, we recorded the following informati on about you: Cecilia Olivo RN, RN 09/18/2019 2:17 PM Signed [id number] Voice Message [employer], this is the [facility] calling. We are sorry we missed you, but your care is important to us . We would like to follow up on your MyChart Molding Machine Tender yanet burris. Please take a moment to complete the questionnaire daily. If any of your symptoms have worsened, please ca ll you PCP office to discuss. [facility] and NON [facility]CF patients may call: ? [facility] Nurse extrusion technician at [phone] ? Their PCP Office Caregivers may call: ? [facility] Employee Hotline: [phone] ? [facility] Employee Boost appointment for 24/11 emotional support: [phone] If you are finding it more difficult [...] Assessed Reason for Visit: Covid Follow Up [5894] Cmt: covid follow up; test ordered Prescriptions [...] 09/18/19 progress on 2019-09 PROGRESS HNO ID: [id number] Normal 09-17-2019 [facility] Author: Nigel Coyle [place] ([id number]) Service: ? Author Type: Physician Type: Progress [...] on 2019-09-17 CNPN Telephone (COVHLD) Normal 09-17-2019 [place] [facility] ALEXIA MERIDA ([id number]) [address] [facility] Date Time Provider Department ([id number]) 09/17/19 KAYLA CORMIER (RAUL) LIU During your visit today, we recorded the following informati on about you: Kayla Cormier APRN.CNP 09/17/2019 4:26 PM Signed Meets criteria for testing. COVID-19 [place] t ordered. A member from the [facility] will be in contact with the patient to sc hedule testing. Please notify pt. Kayla Cormier APRN.RAUL PATIENT INSTRUCTIONS: At present, these are our recommendation s regarding the coronavirus (COVID-19) outbreak: - Wash your hands regularly for at least 20 seconds with soa p and water, especially before eating. - If soap/water are unavaila ble, use a hand armored machine operator with at least 60% alcohol - Avoid [...] at you do not come to any [facility] facility without calling your primary care physician or s peaking to a provider using a virtual visit using [facility]? Online. Y ou will be [...] healthy. Additional information can be found on [facility] and [facility] web sites: https://www.cdc.gov/coronavirus/2019-nCoV/index.html https://[facility].org/coronavirus Allergies As of Date: 09/17/2019 Noted Allergy Reaction PENICILLINS 01/22/2005 2 - Rash 9 - Itching SULFA (SULFONAMIDE ANTIBIOTICS) 01/22/2005 2 - Rash 9 - Itching Date Reviewed: 09/17/2019 Reviewed by: Beena Pandya Ma - Fully Assessed Reason for Visit: Covid-19 Hotline [0414] Primary Visit Diagnosis:Suspected COVID-19 virus infection [ Z20.828] Order(s):2019 CORONAVIRUS [SQCOVID] Order #: [id number] [facility] HOME MONITOR[facility] [[id number]] Order #: [id number] Prescriptions as of 09/17/2019 Sig: ZOLPIDEM [...] CNOV Office Visit (UCTR) Normal 09-17-19 20 [place] [facility] ALEXIA MERIDA ([id number]) 1935 M [place] Date Time Provider Department ([id number]) 09/17/19 3:45 PM [facility] WSTR UCWSTR During your visit today, we [...] 09/17/19 progress on 2019-08 PROGRESS HNO ID: [id number] Normal 08-29-2019 [facility] Author: More (Regulatory Scientist) [facility] ([id number]) Service: ? Author Type: Nurse Practitioner Type: Progress Notes Filed: 08/29/2019 9:04 AM Note Text: This Team Access Model visit is a phone encounter. It requir ed patient-provider interaction for the medical decision making as documented below. Patient agrees to the visit: Yes Patient Location: [place] CC: Patient presents with: Follow Up: abdominal [...] above progress on 2019-08 PROGRESS HNO ID: [id number] Normal 08-25-2019 [facility] Author: Juana (Tech) Erik Nguyen [facility] ([id number]) Service: ? Author Type: Communications Scientist Type: Progress Notes Filed: 08/25/2019 3:38 PM [...] unstable renal function, e.g. those with ac [place] kidney injury, the eGFR may not accurately [...] 2019 TIME: 3:37 PM PROGRESS HNO ID: [id number] Normal 08-25-2019 [facility] Author: More Strickland) [facility] ([id number]) Service: ? Author Type: Nurse Practitioner Type: [...] 01/22/2005 Ruben Nash MD. [facility]. - CARD DEFIBRILL AUTO IMPLANT IN SITU [...] - History of CVA (cerebrovascular accident) 06/04/2017 [facility]: Dr. Yan - Hypertrophy of prostate [...] Laterality Date - COLONOSCOP W/ OR W/O [facility] SPEC 06/12/10 - COLONOSCOP W/ OR W/O [facility] SPEC 06/26/2014 Colonoscopy - DESTR LESION BENIGN/PREMAL [...] agreeable t o treatment plan. More Mann, LISA.CROWN BLOCKER ct abd/pel w ivcon on 2019-08-25 CT ABD/PEL W * * *Final Report* * * Normal 08-03 [facility] IVCON DATE OF EXAM: Aug 25 2019 3:33PM [place] ([id number]) [facility] 0530 - CT ABD/PEL W IVCON / [...] chronic loculated left posterior pleural fluid collection. Grades 9 12 Tutor: PSCB Transcribe Date/Time: Aug 25 2019 3:36P Dictated by : MARSHA RIOS MD This examination was interpreted and the report reviewed and electronically signed by: MARSHA RIOS MD on Aug 25 2019 3:52PM EST [id number] creatinine on 08-24 Creatinine [Mass/Vol] 0.95 0.73-1.22 mg/dL Normal 08-25-19 [facility] ([id number]) Creatinine [Mass/Vol] >60 Normal 08-25-19 [facility] (63493) Comment: Result Comment: eGFR (Estima zhen GFR) [...] on 2019-08-25 CNPN Telephone (INTMWS) Normal 08-25-2019 [place] [facility] MAGNOLIAALEXIA Paul ([id number]) [address] [facility] Date Time Provider Department (80101) 08/25/19 TORIN NOYOLA INTMWS During your visit [...] Itching Date Reviewed: 08/25/2019 Reviewed by: Juana ([place]) Evelina Sevilla - Fully Asse ssed Reason [...] on 09/22/19 CNPN Telephone (INTWS) Normal 08-25-2019 [place] [facility] ALEXIA MERIDA ([id number]) 1935 M [place] Date Time Provider Department ([id number]) 08/25/19 MORE MANN (RAUL) INTMWS During your [...] Schedule virtual/phone follow-up on Thursday. G[facility]O [facility] 08/25/2019 4:17 PM Signed Patient is notified of all information and verbalizes unders tanding Patient would like antibiotics [facility]. Allergies As of Date: 08/25/2019 Noted Allergy Reaction PENICILLINS 01/22/2005 2 - Rash 9 - Itching SULFA (SULFONAMIDE ANTIBIOTICS) 01/22/2005 2 - Rash 9 - Itching Date Reviewed: 08/25/2019 Reviewed by: Juana ([place]) Evelina Sevilla - Fully Asspaul locke Reason [...] 2019-08-25 CNOV Office Visit (INTMWS) Normal 08-25-[address] [place] [address] [facility] ALEXIA MERIDA ([id number]) 1935 M [place] Date Time Provider Department ([id number]) 08/25/19 10:40 AM MORE MANN (RAUL) INTMWS [...] 01/22/2005 Ruben Nash MD. [facility]. - CARD DEFIBRILL AUTO IMPLANT IN SITU [...] - History of CVA (cerebrovascular accident) 06/04/2017 [facility]: Dr. Yan - Hypertrophy of prostate [...] Date Reviewed: 08/25/2019 Reviewed by: Shelia Chappell Research Neuropsychologist - Fully Assessed Reason for Visit: Abdominal Pain [1] Primary Visit Diagnosis:Left lower quadrant abdominal pain [ R10.32] Other Visit Diagnoses:Constipation, unspecified constipation type [K59.00] Encounter for medication monitoring [Z51.81] Order(s):CT ABD/PEL W IVCON [[id number]] Order #: [id number] FU TURE iv contrast (will be provided [...] EachRfl: 0 CREATININE BLD [SQCRET] Order #: [id number] FUTURE Prescriptions as of 08/25/2019 Sig: ZOLPIDEM [...] 2019-08 OBSOLETE Refill (INTMWS) Normal [facility]-04-2019 [facility] ALEXIA MERIDA ([id number]) 1935 M [facility] Time Provider Department ([id number]) 08/04/19 TORIN NOYOLA INTTamraWS During your visit [...] was ident ified. 08/04/2019 by More Older, GERMAN PROFESSOR.CROWN BLOCKER Allergies As of Date: 08/04/2019 Noted Allergy [...] 08/04/19 progress on 2019-03 PROGRESS HNO ID: [id number] Normal 03-28-2019 [facility] Author: Torin Noyola [place] ([id number]) Service: ? Author Type: Physician Type: Progress Notes Filed: 03/28/2019 1:45 PM Note Text: This note was created using Zuldi. Subjective Patient presents with: Yearly Exam: Physical He had chronic progressive neck pain radiating to the right shoulder. He saw a practicioner at [facility], and CT of the spine wa s [...] 01/22/2005 Ruben Nash MD. [facility]. - CARD DEFIBRILL AUTO IMPLANT IN SITU [...] - History of CVA (cerebrovascular accident) 06/04/2017 [facility]: Dr. Yan - Hypertrophy of prostate [...] SKs ablated x 4 - EGD W/O [facility] SPECIMEN W/BX 11/07/11 - EGD W/O OR [...] CNOV Office Visit (INTMWS) Normal 03-28-20 19 [place] [facility] MAGNOLIAALEXIA Miller ([id number]) 1935 M [place] Date Time Provider Department ([id number]) 03/28/19 10:20 AM TORIN NOYOLA INTMWS During [...] right shoulder. He saw a practicioner at [facility], and CT of the spine was sche [...] for pulmonary. He followed with Dr. Cordero, [place] [facility]. He followed with Dr. Aric Zelaya [...] 01/22/2005 Ruben Nash MD. [facility]. - CARD DEFIBRILL AUTO IMPLANT IN SITU [...] - History of CVA (cerebrovascular accident) 06/04/2017 [facility]: Dr. Yan - Hypertrophy of prostate [...] SPEC 06/12/10 - COLONOSCOP W/ OR W/O [facility] SPEC 06/26/2014 Colonoscopy - DESTR LESION BENIGN/PREMAL 06/10/06 SKs ablated x 4 - EGD W/O [facility] SPECIMEN W/BX 11/07/11 - EGD W/O OR [...] Torin Noyola MD Referring Provider: TORIN NOYOLA [[id number]] Allergies As of Date: 03/28/2019 Noted Allergy [...] colon, unspecified part of colon [D12.6] Order(s):PERS [facility] MGMT EAR WAX REMOVA [[id number]] Order #: [id number] CONSULT TO GASTROENTEROLOGY [9010] Order #: [id number]: 1 Prescriptions as of 03/28/2019 Sig: ATORVASTATIN [...] OBSOLETE Refill (INTMWS) Normal 03-14-2019 Uday adkins [facility] ALEXIA MERIDA ([id number]) [address] [facility] Date Time Provider Department ([id number]) 03/14/19 TORIN NOYOLA During your visit today, [...] notify the patient once completed. Matilde Fabian [facility] Delia Castro LPN 03/14/2019 1:59 PM Signed [...] Date Reviewed: 12/23/2018 Reviewed by: Shelia Chappell Research Neuropsychologist - Fully Assessed Reason for Visit: Refill [...] Patient encounter Fall in (into) shower Xr [facility] 01-13-2020 procedure or empty bathtub, initial encounter Comment: Radiology XR 09-17-2019 - Patient encounter Esophageal ZACH starr 09-17-2019 procedure disorders [facility] ([id number] ) [facility] ZACH SOLIS 01-16-2020 - Telephone [facility] 01-16-2020 encounter Comment: disk request Procedures Procedure Name Date Provider Location Radex ribs uni w/posteroant 01-13-2020 Romina (Raul) [facility] ([id number]) minimum 3 views Radex spine thoracic 2 views 01-13-2020 Romina (Regulatory Scientist) [facility] ([id number]) Plan of Treatment Plan Description Date Location ADVANCE DIRECTIVE ADVANCE DIRECTIVE 11-30-2024 - [facility] inic DISCUSSION DISCUSSION 11-30-2024 ([id number]) DIABETES SCREEN DIABETES SCREEN 03-17-2021 - [facility] 03-17-2021 ([id number]) SPIROMETRY SPIROMETRY 11-30-2020 - [facility] 11-30-2020 ([id number]) Comment: Postponed from 1953 (D eclined at this time) DTAP,TDAP,TD (1 - Tdap) DTAP,TDAP,TD (1 - Tdap) 11-30-2020 - [facility] 11-30-2020 ([id number]) Comment: Postponed from [birth year]09/1954 (D eclined at this time) LDL CHOLESTEROL LDL CHOLESTEROL 01-20-2020 - [facility] 01-20-2020 ([id number]) INFLUENZA (#1) INFLUENZA (#1) 2020 - [facility] 01-03-2020 ([id number]) SHINGRIX VACCINE (2 of SHINGRIX VACCINE (2 of 01-06-2012 - [facility] 3) 3) 01-06-2012 (22245) no information [facility] (30472) Immunizations Vaccine Notes Status Date Location Influenza Vaccine, influenza virus (completed) 02-01-2013 - [facility] Split-Non Spec vaccine, unspecified 02-01-2013 (4419 5) formulation Influenza Vaccine, influenza virus (completed) 02-02-2012 - [facility] Split-Non Spec vaccine, unspecified 02-02-2012 (4419 5) formulation Influenza Vaccine, influenza virus (completed) 03-25-2011 - [facility] Split-Non Spec vaccine, unspecified 03-25-2011 (4419 5) formulation Influenza Seasonal - influenza, high dose (completed) 02-23-2019 - [facility] High Dose - Age 65+ seasonal, 02-23-2019 (30109) preservative-free Influenza Seasonal - influenza, high dose (completed) 02-15-2018 - [facility] High Dose - Age 65+ seasonal, 02-15-2018 (35457) preservative-free Influenza Seasonal - influenza, high dose (completed) 03-04-2017 - [facility] High Dose - Age 65+ seasonal, 03-04-2017 (98357) preservative-free Influenza Seasonal influenza, seasonal, (completed) 02-09-2018 - [facility] Trivalent Inj Pres injectable, 02-09-2018 (56214) Free preservative free Influenza Seasonal influenza, seasonal, (completed) 03-04-2017 - [facility] Trivalent Inj Pres injectable, 03-04-2017 (86135) Free preservative free Novel Influenza H1N1, novel (completed) 05-02-2009 - [facility] preservative free [id number], 05-02-2009 (441 [id number]) preservative-free, injectable Pneumococcal-13 Vac pneumococcal conjugate (completed) 07-04-2014 - [facility] Conjugate vaccine, 13 valent 07-04-2014 (64737) Pneumovax pneumococcal (completed) 03-22-2007 - [facility] polysaccharide vaccine, 03-22-2007 (441 95) 23 valent TD Adult tetanus and diphtheria (completed) 12-29-2012 - [facility] toxoids, adsorbed, 12-29-2012 (56412) preservative free, for adult use (2 Lf of tetanus toxoid and 2 Lf of diphtheria toxoid) Zostavax zoster vaccine, live (completed) 11-11-2011 - [facility] 11-11-2011 (74506) Payers Payer Name Policy Number Location PRIMETIME [id number] [facility] (44 195) PRIMETIME MEDICARE OUTPATIENT [id number] [facility] ([id number]) [id number] [facility] ([id number]) The following information is from the original human readable contentNo Payer Records FoundNo Payer Records FoundNo Payer Records FoundNo Payer Records FoundNo Payer Records Found Social History Type Social History Date Location Description Tobacco smoking status Former smoker 01-13-2020 - [facility] NHIS 01-13-2020 ([id number]) History of tobacco use Current smoker 05-04-1974 [facility] (41761) History of tobacco use Cigarette Smoker 05-04-1974 [facility] ([id number]) Cigarettes smoked 01-13-2020 - [facility] current (pack per day) 01-13-2020 (81221) - Reported Tobacco use and Never used 01-13-2020 - [facility] exposure 01-13-2020 (38389) Alcohol intake Current drinker of 01-13-2020 - [place] [facility] marvin alcohol (finding) 01-13-2020 (73217) History SDOH Alcohol 3 03-28-2019 - [place] [facility] Frequency 03-28-2019 (87187) History SDOH Alcohol 1 03-28-2019 - [place] [facility] Std Drinks 03-28-2019 (32373) Sex Assigned At Not on file [facility] (15429) Exposure to SARS-CoV-2 Not sure [facility] (event) (03428) The following information is from the original [...] 12/29/2012 Pneumonia 03/23/2009 09/24/2010 Overview: 03/20/09 to [facility] ED for dyspnea/pneumonia/influenza. 04/04/10 xray with [...] 12/29/2012 Pneumonia 03/23/2009 09/24/2010 Overview: 03/20/09 to [facility] ED for dyspnea/pneumonia/influenza. 04/04/10 xray with [...] History of Present Illness Sharon Hodges (), [facility] - 01/13/2020 3:12 PM EDT Radiology Service [...] BE BASED ON THE PRIMARY CLINICAL RECORDS. [facility] provides no warranty or guarantee of the accuracy or completeness of information in this document. UNRECOGNIZED CONTENT PROVIDED BELOW FOR UNRECOGNIZED SECTION No Status Records FoundNo Status Records FoundNo Status Records FoundNo Status Records Found UNRECOGNIZED CONTENT PROVIDED BELOW FOR UNRECOGNIZED SECTION INFORMATION SOURCE DATE CREATED AUTHOR AUTHOR'S ORGANIZATIO N 09/18/2019 [facility] DATE CREATED AUTHOR AUTHOR'S ORGANIZATIO N 09/19/2019 [facility] Ref erence Lab DATE CREATED AUTHOR AUTHOR'S ORGANIZATIO N 10/10/2019 [facility] Found ation ([place]) DATE CREATED AUTHOR AUTHOR'S ORGANIZATIO N 01/17/2020 [facility] UNRECOGNIZED CONTENT PROVIDED BELOW FOR UNRECOGNIZED SECTION Source Comments In the event this information is protected by the Federal Confidentiality of Alcohol and Drug Abuse Patient Records regulations: The Federal rules restrict any use of the information to criminally investigate or prosecute any alcohol or drug abuse patient.[facility] the event this information is protected by the Federal Confidentiality of Alcohol and Drug Abuse Patient Records regulations: The Federal rules restrict any use of the information to criminally investigate or prosecute any alcohol or drug abuse patient.[facility] UNRECOGNIZED CONTENT PROVIDED BELOW FOR UNRECOGNIZED SECTION Reason for Visit Reason Comments Radiology XR Reason Onset Date Comments disk request 01/16/2020 UNRECOGNIZED CONTENT PROVIDED BELOW FOR UNRECOGNIZED SECTION Miscellaneous Notes Telephone Encounter - Jane Allred - 01/16/2020 11:00 AM EDTCD/REPORTS 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 Thanks Jose Juan Vera documented in this encounter
== END 2019-09-20 16:30 | disposition short-term general hospital (02) ==
LOC: ED 07:14 → PCU 07:23
PROVIDERS: Admitting Provider Student in an Organized Health Care Education/Training Program; Emergency Provider Emergency Medicine; PCP Internal Medicine; Visit Provider Student in an Organized Health Care Education/Training Program
DX: I63.9 Cerebral infarction, unspecified (principal); I21.4 Non-ST elevation (NSTEMI) myocardial infarction; I48.20 Chronic atrial fibrillation, unspecified; J44.9 Chronic obstructive pulmonary disease, unspecified; I25.10 Atherosclerotic heart disease of native coronary artery without angina pectoris; K21.9 Gastro-esophageal reflux disease without esophagitis; E78.5 Hyperlipidemia, unspecified; G47.33 Obstructive sleep apnea (adult) (pediatric); E66.9 Obesity, unspecified; I11.0 Hypertensive heart disease with heart failure; I50.22 Chronic systolic (congestive) heart failure; Z79.899 Other long term (current) drug therapy; Z79.01 Long term (current) use of anticoagulants; Z79.82 Long term (current) use of aspirin; Z95.810 Presence of automatic (implantable) cardiac defibrillator; Z87.891 Personal history of nicotine dependence; Z95.1 Presence of aortocoronary bypass graft; M19.90 Unspecified osteoarthritis, unspecified site; K11.5 Sialolithiasis
CPT/HCPCS: 36415; 70450; 70496; 70498; 71045; 80048; 82962; 84484; 85025; 85610; 85730; 92610; 93005; 93306; 94640; 96374; 96375; 97162; 97166; 99218; 99251; 99284; Q9957; Q9967; A4216; C8929; G0378; G0463

== ENCOUNTER 2019-11-02 09:51 | Inpatient (IN) | payer MEDICARE, SELFPAY ==
[2019-09-20 12:05] VITALS: BMI 30.2
[2019-11-01 11:24] LABS: Probe Check PASS; Specimen Processing Control PASS
[2019-11-02] VITALS (14 sets, daily range): BP systolic 90–139; BP diastolic 66–88; PULSE 62–96; RESP 16–20; TEMP 36.2–36.7; O2SAT 93–99; BMI 29.1
[2019-11-02] MEDS: Lactated Ringers 1,000 ML 999 ML IV (10:31)
[2019-11-02] MEDS: Gabapentin 600 MG Tablet PO (10:31)
[2019-11-02] MEDS: Celecoxib 200 MG Capsule 400 MG PO (10:31)
[2019-11-02] MEDS: Acetaminophen 500 MG Tablet 1000 MG PO ×2 (10:31→21:09)
[2019-11-02 10:56] LABS: Bedside Glucose 99 mg/dL (70-110)
[2019-11-02] MEDS: Cefazolin 2 GM in 0.9% Normal Saline 100 ML IV (12:35)
[2019-11-02] MEDS: Lactated Ringers 1,000 ML 125 ML IV (12:35)
--- NOTE | 2019-11-02 13:34 | OP.PCM_ITS ---
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 Surgery/Procedure Performed:: Right reverse total shoulder replacement Description of Surgical Findings:: Stable shoulder. prepleater: Mauricio Bowen Type of Anesthesia:: General Anesthesiologist: Jefry Travis Special Medications: 2 g Ancef, 1 g TXA at incision, 1 g TXA closure, 10 mg Decadron, vancomycin IV. Specimen's removed: Bony cuts Estimated Blood Loss (mL): 75 Fluids Replaced: 1200 mL crystalloid Description of Procedure: Components used 1. Stevie reunion glenoid baseplate 2. Stevie reunion 36 mm, 2 mm eccentric, lateralized 6 mm Glenosphere 3. Stevie reunion 36mm, 4mm humeral liner 4. Stevie reunion reverse TSA humeral adapter tray 4mm 5. [place] reunion humeral stem primary press-fit 16mm size Brief history/Operative indications: 84 yo M with history of R shoulder pain and cuff tear arthropathy. Patient failed conservative measures as mentioned in the H&P. After discussion of risk and benefits of reverse total shoulder replacement including but not limited to blood loss, DVTs, PEs, nerve vessel damage, infection, general risk of anesthesia including loss of life, instability and stiffness patient demonstrating understanding wish to proceed was able to sign informed consent. Medical clearance was obtained. Procedure: On the date of the procedure, patient's R upper extremity was marked in the preoperative area. Patient was taken back to the operating room where they were placed on the table in the supine position. Anesthesia assumed control of the C-spine and airway, then administered anesthetic. All bony prominences were identified well-padded, the head was secured and the patient was placed in the beachchair position at about 35? inclination. Anesthesia remained in control of the C-spine airway throughout the remainder of the procedure. Patient was then appropriately fastened to the table and the R upper extremity was prepped in a sterile fashion. The surgeons then scrubbed. Upon reentering the room, the R upper extremity was draped in a sterile fashion and the incision was marked out. Timeout was called, everyone agreed upon the side, the site, the procedure to be performed, patient identity and antibiotics given. Incision was taken down through skin and subcutaneous tissue, fat down to fascia. The stripe of the deltopectoral interval and cephalic vein were identified and blunt dissection was used to retract the deltoid. The cephalic vein was retracted laterally. Clavipectoral fascia was then incised and a cobra retractor was placed in the wound. The proximal one third of the pectoralis major insertion was released. Pectoralis tendon insertion was used to tenodesed the biceps tendon which was identified in the bicipital groove. Tenodesis was done with #1 Vicryl. Proximally we followed the biceps tendon after transecting it into the rotator interval. The rotator interval was split and the arm was externally rotated. The split was 1 cm medial to the bicipital groove. Subscapularis tendon was released. We released down the anterior portion of the humeral head and a torres elevator was used to release the inferior portion of the humeral head. The arm was externally rotated and the shoulder was dislocated. The humeral head was then cut at its natural retroversion. Once his humeral head cut was made humerus was retracted out of the way and the glenoid was exposed. After exposing the glenoid, the labrum and the remaining proximal biceps were debrided. At this time we are able to view the entire outer edge of the glenoid. A central pin was placed we sequentially reamed over this central pin to 24mm. Once this was completed the central screw was measured and found to be. The glenoid baseplate was screwed into place. Wound was closely irrigated out with normal saline we then drilled sequentially for 2 screws. Screws were placed superiorly and inferiorly and tightened down the screws. Once the screws were appropriately tightened into place the glenoid baseplate was compressed against the exposed subchondral bone. A 36mm glenosphere was impacted into place engaging the Kimbrough taper. Attention was then turned towards the humerus. The humerus was again externally rotated exposing the proximal portion of the humerus. Central canal finder was then used to open up the canal. We reamed to a 16mm reamer. We then broached to a 16mm stem. We trialed the 4mm liner, with the 4mm humeral baseplate. We obtained an adequate reduction at this time with a nice stable shoulder. Good internal rotation to the gluteus, forward elevation to 140?, external rotation to 20?. Final components were then assembled on the back table, trials were removed and the wound was copiously irrigated with normal saline after dislocating the shoulder. Once the final components were assembled they were impacted into place. Shoulder was then reduced and found to be stable with good range of motion. Subscapularis tendon was repaired using #2 FiberWire. The wound was with chlorhexidine solution then copiously irrigated out with a 1 L normal saline lavage. The deltopectoral fascia was then closed using #1 Vicryl skin was closed using 2-0 Vicryl interrupted sutures and final skin closure was done with 3-0 Monocryl. Steri-Strips are placed for final skin closure. Sterile dressing was placed patient was then placed in a sling and awakened by anesthesia. Patient was then transferred to the PACU for recovery. Postoperative plan: Patient will be admitted to the hospital overnight. They will get physical therapy starting in 2 weeks with normal postoperative regimen. Patient will be placed on aspirin for for DVT prophylaxis. The first postoperative appointment will be in 2 weeks for wound check and initiation of phase 1 physical therapy. During the course of the procedure the physician assistant professor of psychology played a vital role. His intimate knowledge of my steps in the procedure aided in safe and expedient completion of the procedure. The PA played a vital rolls in positioning particularly in obtaining the appropriate beach chair position and securing the patient's body and head to the table. The PA was also vital in the retraction of soft tissues during the exposure and especially the glenoid work as this is a vital part of the procedure to prevent neurovascular damage. the PA was also vital and protecting soft tissues during times of bony cuts and reaming. He also played a vital role in closure with my direct supervision. The PA was also important during reduction and dislocation of the joint and trials intraoperatively. - Complications No intraoperative complications - Admit VTE Documentation VTE Present on Admission: No VTE Mechan Device Prophylaxis: SCD's, Thigh High BRYN Hose VTE Pharm Prophylaxis ordered?: Yes
--- NOTE | 2019-11-02 14:35 | RAD_ITS ---
STUDY: X-RAY - RIGHT SHOULDER REASON FOR EXAM: Male, 84 years old. POST OP TECHNIQUE: view(s) of the shoulder. COMPARISON: None. FINDINGS: Status post right total shoulder arthroplasty with associated postsurgical changes in the soft tissues. Hardware appears intact and normally aligned. The soft tissue structures are unremarkable. Normal visualized pulmonary apex. Cardiac hardware and median sternotomy wires are partly visualized. RAD/Shoulder min 2 Views IMPRESSION: Status post right total shoulder arthroplasty. Electronically Signed: Td Gonzalez, at 19:11 EDT Tel , Service support ,
[2019-11-02] MEDS: Lactated Ringers 500 ML 999 ML IV (15:15)
[2019-11-02] MEDS: Carvedilol 6.25 MG Tablet PO (21:09)
[2019-11-02] MEDS: Senna/Docusate Sodium 1 Tablet 2 TABLET PO (21:09)
[2019-11-02] MEDS: Ipratropium/Albuterol Sulfate 3 ML AMPUL.NEB INHALATION (21:09)
[2019-11-02] MEDS: Atorvastatin Calcium 80 MG Tablet PO (21:09)
[2019-11-02] MEDS: APIXABAN 5 MG TABLET PO (21:09)
[2019-11-02] MEDS: Cefazolin 1 GM/50 ML BAG IV (21:10)
--- NOTE | 2019-11-02 21:20 | CON.PCM_ITS ---
Reason for Consult Date of Consultation: 11/02/19 Reason for Consultation: Medical Mgt History of Present Illness: The patient is a 84 year old M who was admitted today for a R reverse TSA. He has a h/o R shoulder pain and RC arthropathy and failed outpt conservative management. He presented today for surgery. We have been consulted for medical mgt. Past Medical History Past Medical History (Chronic Problems): Chronic Problems Hypertension (Chronic) Coronary artery disease (Chronic) Chronic atrial fibrillation (Chronic) Chronic anticoagulation (Chronic) Pradaxa GERD (gastroesophageal reflux disease) (Chronic) Obesity (Chronic) Systolic congestive heart failure (Chronic) Hyperbilirubinemia (Chronic) COPD (chronic obstructive pulmonary disease) (Chronic) History of coronary artery bypass graft (Chronic) 2003 Former smoker (Chronic) Hyperlipidemia (Chronic) Osteoarthritis (Chronic) Obstructive sleep apnea (Chronic) on BIPAP AICD (automatic cardioverter/defibrillator) present (Chronic) Allergies Penicillins [PCN] Allergy (Verified 11/02/19 10:22) Rash Sulfa (Sulfonamide Antibiotics) Allergy (Verified 11/02/19 10:22) Rash Home Medications: Ambulatory Orders Medication Instructions Recorded Atorvastatin Calcium [Lipitor] 80 mg PO QHS 09/15/13 Carvedilol 6.25 mg PO BID 09/15/13 Furosemide [Lasix] 20 mg PO DAILY 09/15/13 Lisinopril 40 mg PO DAILY 09/15/13 Zolpidem Tartrate [Ambien] 5 mg PO QHS PRN PRN 09/15/13 Ipratropium/Albuterol Respimat 1 puff INHALATION 4X/DAY 09/20/19 [Combivent Respimat Inhal [place]] Amlodipine [Norvasc] 10 mg PO DAILY 10/31/19 Apixaban [Eliquis] 5 mg PO BID 10/31/19 Aspirin [Aspirin, Baby] 81 mg PO DAILY@0800 10/31/19 Spironolactone 25 mg PO DAILY 10/31/19 Surgical History: cataract - Bilateral, cholecystectomy, coronary bypass surgery, herniorrhaphy - Left inguinal, pacemaker implantation - PM/AICD, - - PTCA/MATTHEW Psychiatric History: No pertinent psych hx Smoking Status: Former smoker Tobacco Use: Non-smoker - *Family History Sibling Family History: Family History (Last Updated 10/13/18 @ 03:[address] Gerald Odell MD) Mother Myocardial infarction Sister Tuberculosis Father Peripheral artery disease History Items: Cancer - brother with prostate CA Review of Systems Constitutional: Denies: Anorexia, Chills, Fever, Night Sweats, Malaise, Weakness, Weight Change, Fatigue Eyes: Denies: Blurred vision, Double vision, Drainage, Eyelid Inflammation, Pain, Redness HEENT: Denies: Difficulty Hearing, Dysphasia, Eye Pain, Head Aches, Nasal bleeding, Nasal Congestion, Sore Throat Cardiovascular: Denies: Chest Pain, Chest Pressure, Chest Tightness, Edema, Heaviness, Light Headedness, Orthopnea, Palpitations, Paroxysmal Noc. Dyspnea, Syncope Respiratory: Denies: Cough, Hemoptysis, Pleuritic Pain, Shortness of Breath, Sputum production, Wheezing Gastrointestinal: Denies: Abdominal Pain, Constipation, Diarrhea, Vomiting Genitourinary: Denies: Dysuria, Nocturia Musculoskeletal: Reports: Joint stiffness, Joint swelling, Joint Tenderness, Shoulder Pain Skin: Denies: Dryness, Jaundice, Lesions, Pruritis, Rash, Skin Changes, Wounds Neurological: Denies: Balance problems, Blurred vision, Double vision, Change in Speech, Slurred speech, Confusion, Difficulty swallowing, Focal weakness, Headaches, Incoordination, Numbness, Tingling, Tremor, Seizures Psychiatric: Denies: Anxiety, Depression Endocrine: Denies: Change in Body Habitus, Heat/ Cold Intolerance, Polydipsia, Polyuria Hematologic/ Lymphatic: Reports: Easy Bruising. Denies: Adenopathy, Anemia, Easy Bleeding, Petechiae, Purpura - Physical Exam Vitals/I&O's: Vital Signs Temp Pulse Resp BP Pulse Ox 97.4 F L 65 18 116/68 96 11/02/19 20:56 11/02/19 20:56 11/02/19 20:56 11/02/19 20:56 11/02/19 20:56 Oxygen Flow Rate (L/min) 3 Oxygen Delivery Method Nasal Cannula Weight: 86.9 kg Body Mass Index (BMI) 29.1 Finger Stick Blood Glucose 102 Intake and Output for Last 24 Hours 10/31/19 11/01/19 11/02/19 23:59 23:59 23:59 Intake Total 2360 / 2360 Output Total 350 / 350 Balance 2009 General: Alert, Oriented x3, Cooperative, Well developed, Well nourished HEENT: Atraumatic, PERRLA, EOMI, Normocephalic Oral: Moist Mucosa, No Gingival or Mucosal Lesions/ Ulcerations, - - mallampati 3 Neck: Supple, No JVD, Negative Carotid Bruits, Negative Hepatojugular Reflux, No Nodes, No Nuchal Rigidity, Trachea Midline, Thyroid Normal Size and Texture Lungs: Clear to auscultation, Normal air movement, No rhonchi, No wheeze, No rales Cardiovascular: Regular rate, Normal S1, Normal S2, No murmurs, No Ectopic Activity, No rub noted, No Gallop, - - irreg rhythm Abdomen: Bowel Sounds Present, Soft, Non Tender, Non-Distended, Obese, No hernias noted Extremities: No clubbing, No cyanosis, No edema, Capillary Refill Less than 3 Seconds, Peripheral Pulses Normal Skin: No rashes, No breakdown Musculoskeletal: No Muscle Wasting, Arthritic Changes Lymphatic: No Cervical, Supraclavicular, or Inguinal Adenopathy Neurological: Cranial nerves II-XII grossly intact, Deep Tendon Reflexes 2+/4 and Symmetrical, Neuro grossly intact, Muscle tone normal, Sensory exam intact to light touch and pain Psych/Mental Status: Normal Affect, Appropriate, Alert and oriented to time, place, person, mood and affect Laboratory Results 11/02/19 10:27: POC Glucose 99 Current Medications Acetaminophen (Tylenol) 1,000 mg PO Q8 [facility] Last Admin: 11/02/19 21:09 Dose: 1,000 mg Documented by: Albuterol/Ipratropium (Duoneb) 3 ml INHALATION 4X/DAY.RT [facility] Last Admin: 11/02/19 21:09 Dose: 3 ml Documented by: Amlodipine Besylate (Norvasc) 10 mg PO DAILY [facility] Apixaban (Eliquis) 5 mg PO BID [facility] Last Admin: 11/02/19 21:09 Dose: 5 mg Documented by: Aspirin (Ecotrin) 81 mg PO DAILY@0800 [facility] Atorvastatin Calcium (Lipitor) 80 mg PO QHS [facility] Last Admin: 11/02/19 21:09 Dose: 80 mg Documented by: Carvedilol (Coreg) 6.25 mg PO BID [facility] Last Admin: 11/02/19 21:09 Dose: 6.25 mg Documented by: Enteral Nutritional Formula (Ensure Surgery) 237 ml PO TIDCM [facility] Last Admin: 11/02/19 17:05 Dose: Not Given Documented by: Famotidine (Pepcid) 20 mg PO DAILY [facility] Furosemide (Lasix) 20 mg PO DAILY [facility] Cefazolin Sodium () 1 gm in 50 mls @ 150 mls/hr IV Q8H [facility] Stop: 11/03/19 04:49 Last Admin: 11/02/19 21:10 Dose: 150 mls/hr Documented by: Sodium Chloride () 250 mls @ 15 mls/hr IV .[id number] PRN PRN Reason: Saline Flush Lisinopril (Zestril) 40 mg PO DAILY [facility] Senna/Docusate Sodium (Senokot-S, Linda-Colace) 2 tablet PO BID [facility] Last Admin: 11/02/19 21:09 Dose: 2 tablet Documented by: Sodium Chloride () 10 - 40 ml IV UD PRN PRN Reason: SALINE FLUSH Spironolactone (Aldactone) 25 mg PO DAILY [facility] Assessment/Plan All Active Problems Stroke-like symptoms (Acute) CVA (cerebral vascular accident) (Acute) Atrial fibrillation (Acute) Ischemic cerebrovascular accident (CVA) (Acute) Hearing loss (Acute) History of PTCA 1 (Acute) Difficulty walking (Acute) Speech disturbance (Acute) TIA (transient ischemic attack) (Acute) ASSESSMENT 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
[2019-11-03 00:28] VITALS: BP 113/52; PULSE 81; RESP 20; TEMP 36.6; O2SAT 95
[2019-11-03 01:00] VITALS: PULSE 74; RESP 10; RESP 20; O2SAT 95
[2019-11-03 04:28] VITALS: BP 113/63; PULSE 68; RESP 18; TEMP 36.4; O2SAT 99
[2019-11-03 04:30] VITALS: PULSE 68; RESP 10; RESP 22; O2SAT 99
[2019-11-03] MEDS: 0.9% Saline Lock 10 ML Syringe IV (04:33)
[2019-11-03] MEDS: Cefazolin 1 GM/50 ML BAG IV (04:33)
[2019-11-03] MEDS: Acetaminophen 500 MG Tablet 1000 MG PO (06:28)
[2019-11-03 07:23] VITALS: PULSE 84; RESP 16; O2SAT 96
[2019-11-03] MEDS: Ipratropium/Albuterol Sulfate 3 ML AMPUL.NEB INHALATION (07:23)
[2019-11-03 07:28] VITALS: BP 118/77; PULSE 74; RESP 16; TEMP 36.5; O2SAT 94
--- NOTE | 2019-11-03 07:31 | PCM.PN.HOSP ---
Reason for Visit: Right reverse total shoulder replacement Subjective: Patient is an 84-year-old gentleman who underwent right shoulder reverse arthroplasty, hospitalist service was consulted to assist with medical management Objective: GENERAL: cooperative HEENT: Atraumatic; EYES; Anicteric, Normal Conjunctiva NECK; supple, normal thyroid, RESPIRATORY: Diminished to auscultation CARDIOVASCULAR: Regular S1 S2, GI: soft, normoactive bowel sounds, : No Renal angle tenderness; EXTREMITIES: No edema, no clubbing, MUSCULOSKELETAL: Right shoulder immobilized NEURO: Awake; no lateralizing signs. SKIN: No Rash PSYCH; Flat affect Vitals/I&O's: Vital Signs Temp Pulse Resp BP Pulse Ox 97.6 F L 68 22 H 113/63 99 11/03/19 04:28 11/03/19 04:30 11/03/19 04:30 11/03/19 04:28 11/03/19 04:30 Oxygen Flow Rate (L/min) 2 Oxygen Delivery Method Bi-pap Weight: 86.9 kg Body Mass Index (BMI) 29.1 Finger Stick Blood Glucose 102 Intake and Output for Last 24 Hours 11/01/19 11/02/19 11/03/19 23:59 23:59 23:59 Intake Total 3410 / 3410 750 / 750 Output Total 350 / 350 600 / 600 Balance 3060 / 3060 150 / 150 Laboratory Results 11/02/19 10:27: POC Glucose 99 Current Medications Acetaminophen (Tylenol) 1,000 mg PO Q8 [facility] Last Admin: 11/03/19 06:28 Dose: 1,000 mg Documented by: Albuterol/Ipratropium (Duoneb) 3 ml INHALATION 4X/DAY.RT [facility] Last Admin: 11/03/19 07:23 Dose: 3 ml Documented by: Amlodipine Besylate (Norvasc) 10 mg PO DAILY [facility] Apixaban (Eliquis) 5 mg PO BID [facility] Last Admin: 11/02/19 21:09 Dose: 5 mg Documented by: Aspirin (Ecotrin) 81 mg PO DAILY@0800 [facility] Atorvastatin Calcium (Lipitor) 80 mg PO QHS [facility] Last Admin: 11/02/19 21:09 Dose: 80 mg Documented by: Carvedilol (Coreg) 6.25 mg PO BID [facility] Last Admin: 11/02/19 21:09 Dose: 6.25 mg Documented by: Enteral Nutritional Formula (Ensure Surgery) 237 ml PO TIDCM [facility] Last Admin: 11/02/19 17:05 Dose: Not Given Documented by: Famotidine (Pepcid) 20 mg PO DAILY [facility] Furosemide (Lasix) 20 mg PO DAILY [facility] Sodium Chloride () 250 mls @ 15 mls/hr IV .[id number] PRN PRN Reason: Saline Flush Lisinopril (Zestril) 40 mg PO DAILY [facility] Senna/Docusate Sodium (Senokot-S, Linda-Colace) 2 tablet PO BID [facility] Last Admin: 11/02/19 21:09 Dose: 2 tablet Documented by: Sodium Chloride () 10 - 40 ml IV UD PRN PRN Reason: SALINE FLUSH Last Admin: 11/03/19 04:33 Dose: 10 ml Documented by: Spironolactone (Aldactone) 25 mg PO DAILY [facility] STROKE Vital Signs/Narrative: Vital Signs Temp Pulse Resp BP Pulse Ox 11/03/19 04:30 68 22 H 99 11/03/19 04:28 97.6 F L 68 18 113/63 99 Medical Necessity - Tobacco Use Smoking Status: Former smoker Tobacco Use: Non-smoker Assessment/Plan All Active Problems Stroke-like symptoms (Acute) CVA (cerebral vascular accident) (Acute) Atrial fibrillation (Acute) Ischemic cerebrovascular accident (CVA) (Acute) Hearing loss (Acute) History of PTCA 1 (Acute) Difficulty walking (Acute) Speech disturbance (Acute) TIA (transient ischemic attack) (Acute) Patient is an 84-year-old gentleman who underwent right shoulder reverse arthroplasty, hospitalist service was consulted to assist with medical management 1. Severe R Shoulder OA -s/p Right reverse total shoulder replacement on 11/02/2019 2. CAD - with H/O CABG 2003 3. Congestive heart failure with reduced ejection fraction (HFrEF with EF 35%) compensated not in exacerbation 4. Chronic A. fib ?Rate controlled 5. Hypertension ?Blood pressure controlled continue home medication 6. Dyslipidemia -Patient is on statin therapy, continued at home dose 7. COPD -Not in exacerbation did continue with home meds 7. Obstructive sleep apnea Patient uses BiPAP at night 9. Previous history of CVA ?Currently without any residual effect 10. Generalized osteoarthritis Inpatient E&M: 92966 Subs Hosp L2
[2019-11-03] MEDS: APIXABAN 5 MG TABLET PO (07:50)
[2019-11-03] MEDS: Aspirin E.C. 81 MG Tablet PO (07:50)
[2019-11-03] MEDS: amLODIPine 10 MG Tablet PO (07:50)
[2019-11-03] MEDS: Lisinopril 40 MG Tablet PO (07:50)
[2019-11-03] MEDS: Carvedilol 6.25 MG Tablet PO (07:50)
[2019-11-03] MEDS: Famotidine 20 MG Tablet PO (07:51)
[2019-11-03] MEDS: Spironolactone 25 MG Tablet PO (07:51)
[2019-11-03] MEDS: Furosemide 20 MG Tablet PO (07:51)
[2019-11-03] MEDS: Senna/Docusate Sodium 1 Tablet 2 TABLET PO (07:53)
[2019-11-03] MEDS: Ensure Surgery 237 ML LIQUID PO (07:53)
[2019-11-03 08:47] LABS: Absolute Lymphocyte Count 0.41 X10^3/uL (0.83-4.51); Absolute Neutrophil Count 18.1 X10^3/uL (2.0-7.7); Basophil# 0.02 X10^3/uL; Basophil% 0.1 % (0-1); Hematocrit 38.5 % (40-54); Hemoglobin 12.5 g/dL (13.0-16.5); Lymphocyte # 0.41 X10^3/ul (4.0); Lymphocyte % 2.1 % (19-41); Mean Corp Hgb Conc 32.5 g/dL (32-36); Mean Corpuscular Hgb 31.9 pg (27.0-32.0); Mean Corpuscular Volume 98.2 fL (80-94); Monocyte# 0.61 X10^3/uL; Monocyte% 3.2 % (0-10); NRBC Flagged by Analyzer 0 % (0-5); Neutrophil # 18.07 X10^3/uL (2.7-7.7); POSITIVE DIFFERENTIAL YES; Platelet Count 217 K/mm3 (150-450); RBC Distribution Width CV 13.7 % (11.6-14.6); RBC Distribution Width SD 48.2 fl (35.1-43.9); Red Blood Count 3.92 M/mm3 (4.6-6.2); White Blood Count 19.2 K/mm3 (4.4-11.0)
[2019-11-03 08:52] LABS: Differential Indicated SCAN CRITERIA MET
[2019-11-03 09:09] LABS: Anion Gap 9 (5-15); BUN 28 mg/dL (7-18); Calcium,Total 8.5 mg/dL (8.5-10.1); Chloride 101 mmol/L (98-107); Creatinine, Serum 1.47 mg/dL (0.70-1.30); EST Glomerular Filtration Rate 49 mL/min (>60); Est Glom Filt Rate - Afr Amer 59 mL/min (>60); Estimated Creatinine Clearance 36.84 ml/min; Glucose 164 mg/dL (74-106); Potassium 4.6 mmol/L (3.5-5.1); Sodium Level 134 mmol/L (136-145)
--- NOTE | 2019-11-03 09:15 | CASEMGMT ---
DONTE SANDHU Face to Face with patient for initial transition planning/care coordination assessment. RN EDSON introduced self and role at [facility]. Patient sitting in chair, alert and oriented. Patient willing to participate in assessment and is able to answer all questions appropriately. Care providers, pharmacy, and demographics verified. Patient wishes to discharge home, denies need for home health at this time. Patient will start therapy after 2 week follow-up with ortho. Patient states he has no further needs or concerns at this time. CM to follow for discharge planning needs that may arise. PCP: Dennys Specialists: Verna, pain; Laura, pulmonology; Garcia, dermatology; Riri, ortho; Karen, surface water manager Preferred Pharmacy: [facility] Insurance: [employer] Prescription Benefit: yes Living Will/HPOA: yes, Shannan Dunne LNOK: Living Arrangements: Patient lives with in 1 story home with 3 steps and railing to enter the home. Patient states he was independent at home prior to surgery. is able to assist patient at home. Transportation: DME/HHC: Patient states he has bipap at home. Denies previous HHC or SNF. Disposition Plan: Patient to discharge home with family support and follow-up plans in place. Sabrina BARAKAT, RN, CM
--- NOTE | 2019-11-03 09:25 | PN.ORTHO_ITS ---
Subjective: The patient was sitting in bedside chair upon examination. Patient denies any chest pain, shortness of breath, dizziness, lightheadedness, nausea or vomiting, or calf pain. Pain is controlled on medications. No adverse overnight events. Patient overall is doing very well and has no pain in the shoulder at this time. Patient is wishing to go home today. Objective: Vital signs stable, afebrile Dressing is clean, dry, intact Ultra-sling fitting appropriately Sensation intact to axillary, radial, median, and ulnar distribution Motor intact to AIN, PIN, and ulnar nerve - Physical Exam Vitals/I&O's: Vital Signs Temp Pulse Resp BP Pulse Ox 97.7 F L 74 16 118/77 94 11/03/19 07:28 11/03/19 07:28 11/03/19 07:28 11/03/19 07:11/03/19 07:28 Oxygen Flow Rate (L/min) 2 Oxygen Delivery Method Room Air Weight: 86.9 kg Body Mass Index (BMI) 29.1 Finger Stick Blood Glucose 102 Intake and Output for Last 24 Hours 11/01/19 11/02/19 11/03/19 23:59 23:59 23:59 Intake Total 3410 / 3410 750 / 750 Output Total 350 / 350 600 / 600 Balance 3060 / 3060 150 / 150 General: Alert, Oriented x3, Cooperative, No apparent distress Laboratory Results 11/02/19 10:27: POC Glucose 99 11/03/19 08:33: WBC 19.2 H, RBC 3.92 L, Hgb 12.5 L, Hct 38.5 L, MCV 98.2 H, MCH 31.9, MCHC 32.5, RDW Std Deviation 48.2 H, RDW Coeff of Theresa 13.7, Plt Count 217, MPV 10.0, Immature Gran % (Auto) 0.600, Neut % (Auto) 94.0 H, Lymph % (Auto) 2.1 L, [place] % (Auto) 3.2, Eos % (Auto) 0.0, Baso % (Auto) 0.1, Absolute Neuts (auto) 18.1 H, Absolute Lymphs (auto) 0.41 L, Nucleated RBC % 0 11/03/19 08:33: Sodium 134 L, Potassium 4.6, Chloride 101, Carbon Dioxide 24.0, Anion Gap 9, BUN 28 H, Creatinine 1.47 H, Estim Creat Clear Calc 36.84, Est GFR (MDRD) Af Amer 59 L, Est GFR (MDRD) Non-Af 49 L, BUN/Creatinine Ratio 19.0, Glucose 164 H, Calcium 8.5 Current Medications Acetaminophen (Tylenol) 1,000 mg PO Q8 [facility] Last Admin: 11/03/19 06:28 Dose: 1,000 mg Documented by: Albuterol/Ipratropium (Duoneb) 3 ml INHALATION 4X/DAY.RT [facility] Last Admin: 11/03/19 07:23 Dose: 3 ml Documented by: Amlodipine Besylate (Norvasc) 10 mg PO DAILY [facility] Last Admin: 11/03/19 07:50 Dose: 10 mg Documented by: Apixaban (Eliquis) 5 mg PO BID [facility] Last Admin: 11/03/19 07:50 Dose: 5 mg Documented by: Aspirin (Ecotrin) 81 mg PO DAILY@0800 [facility] Last Admin: 11/03/19 07:50 Dose: 81 mg Documented by: Atorvastatin Calcium (Lipitor) 80 mg PO QHS [facility] Last Admin: 11/02/19 21:09 Dose: 80 mg Documented by: Carvedilol (Coreg) 6.25 mg PO BID [facility] Last Admin: 11/03/19 07:50 Dose: 6.25 mg Documented by: Enteral Nutritional Formula (Ensure Surgery) 237 ml PO TIDCM [facility] Last Admin: 11/03/19 07:53 Dose: 237 ml Documented by: Famotidine (Pepcid) 20 mg PO DAILY [facility] Last Admin: 11/03/19 07:51 Dose: 20 mg Documented by: Furosemide (Lasix) 20 mg PO DAILY [facility] Last Admin: 11/03/19 07:51 Dose: 20 mg Documented by: Sodium Chloride () 250 mls @ 15 mls/hr IV .[id number] PRN PRN Reason: Saline Flush Lisinopril (Zestril) 40 mg PO DAILY [facility] Last Admin: 11/03/19 07:50 Dose: 40 mg Documented by: Senna/Docusate Sodium (Senokot-S, Linda-Colace) 2 tablet PO BID [facility] Last Admin: 11/03/19 07:53 Dose: 2 tablet Documented by: Sodium Chloride () 10 - 40 ml IV UD PRN PRN Reason: SALINE FLUSH Last Admin: 11/03/19 04:33 Dose: 10 ml Documented by: Spironolactone (Aldactone) 25 mg PO DAILY [facility] Last Admin: 11/03/19 07:51 Dose: 25 mg Documented by: Medical Necessity - Tobacco Use Smoking Status: Former smoker Tobacco Use: Non-smoker Assessment/Plan All Active Problems Stroke-like symptoms (Acute) CVA (cerebral vascular accident) (Acute) Atrial fibrillation (Acute) Ischemic cerebrovascular accident (CVA) (Acute) Hearing loss (Acute) History of PTCA 1 (Acute) Difficulty walking (Acute) Speech disturbance (Acute) TIA (transient ischemic attack) (Acute) 1. S/P right reverse total shoulder arthroplasty POD #1 2. Continue Pain Medications: Patient is currently treated with Cab[place] at home with pain management. I will continue Cab[place] for pain control as needed for the postoperative reverse total shoulder arthroplasty. 3. DVT Prophylaxis: Patient currently is on Eliquis 4. PT/OT: No range of motion right upper extremity. Patient will be instructed on appropriate pendulum exercises and elbow range of motion exercises that will be performed 3 times daily. Outpatient physical therapy will begin after 2-week postop visit. 5. H & H: 12.5/38.5, asymptomatic. Secondary to acute blood loss from surgery 6. Reactive leukocytosis: Currently 19.2, afebrile. Patient did receive D ecadron intraoperatively 7. Continue postoperative medical management per medicine 8. Encouraged Incentive Spirometry 9. Disposition: Plan will be for discharge home today after physical therapy. Overall patient is doing very well with regards to his right shoulder. He will continue with his Eliquis as prescribed by primary care physician. Patient will be given prescription for Cab[place] due to postoperative pain control. He does see pain management in which she is on Caballo for his back pain. Patient will follow-up per postop instructions. Physical therapy will begin after his 2-week postop visit. Prescriptions will be E scribed to [facility] in [place]. I have reviewed the [place] Automated Rx Reporting System (OARRS) report for this patient for refill pattern and other prescriber involvement as part of the appropriate surveillance for the provision of acute and chronic controlled medications. The report was requested and reviewed on the date of this entry and was considered in the prescribing process.
--- NOTE | 2019-11-03 09:40 | PCM.DC.ORTHO ---
Discharge Diet: No Restrictions Discharge Activity: May Not Drive May shower in (days): 1 - Dressing must be intact to skin. Turn dressing away from water. Ice area for (Minutes): 20 - Ice area for 20 minutes each hour while awake Weight Bearing Status: No weight bearing - right upper extremity Keep extremity elevated above heart level: Operative Extremity Call your doctor if your incision/area has: Continuous Slow Oozing, Sudden Increased Bleeding, Increased Pain/ Swelling, Increased Redness, Foul Smelling Discharge Call your doctor if you observe: Fever of 101 or Higher, Coldness, Increased Pain, Numbness or Tingling, Change in Color Remove Dressing in (days):: 4 - remove on November 06 Additional Instructions: Follow orthopedic postop instructions Allergies/Adverse Reactions: Allergies Penicillins [PCN] Allergy (Verified 11/02/19 10:22) Rash Sulfa (Sulfonamide Antibiotics) Allergy (Verified 11/02/19 10:22) Rash Medications to take at Discharge Atorvastatin Calcium [Lipitor] 80 mg PO QHS 09/15/13 Carvedilol 6.25 mg PO BID 09/15/13 Furosemide [Lasix] 20 mg PO DAILY 09/15/13 Lisinopril 40 mg PO DAILY 09/15/13 Zolpidem Tartrate [Ambien] 5 mg PO QHS PRN PRN 09/15/13 Ipratropium/Albuterol Respimat [Combivent Respimat Inhal [place]] 1 puff INHALATION 4X/DAY 09/20/19 Amlodipine [Norvasc] 10 mg PO DAILY 10/31/19 Apixaban [Eliquis] 5 mg PO BID 10/31/19 Aspirin [Aspirin, Baby] 81 mg PO DAILY@0800 10/31/19 Spironolactone 25 mg PO DAILY 10/31/19 Hydrocodone/Acetaminophen [[place] 5-325 Tablet] 1 each PO Q6H PRN PRN 7 Days #28 tablet 11/03/19 Senna/Docusate Sodium [Senokot-S] 2 tab PO BID #10 tab 11/03/19 The following prescriptions were given: Hydrocodone/Acetaminophen [[place] 5-325 Tablet] 1 each PO Q6H PRN PRN 7 Days #28 tablet PRN Reason: Pain Score 4-10/10 Transmission Status: Sent to [facility] Senna/Docusate Sodium [Senokot-S] 2 tab PO BID #10 tab Transmission Status: Pending to [facility] Primary Care Physician: Torin Noyola MD [Primary Care Provider] - Test Results: Test results from this visit will be discussed in further detail at your follow-up appointment, if applicable. Please Follow Up With: Jules Bowen PA-C When: 11/16/19 @ 10:00 am
== END 2019-11-03 10:37 | disposition home or self-care (01) | DRG 483 ==
LOC: ACINP 09:54 → MS3 13:35
PROVIDERS: Anesthesiology; Physician Assistant Surgical; Admitting Provider Specialist; PCP Internal Medicine; Referring Provider Specialist; Visit Provider Internal Medicine
PROC: 0RRJ00Z Replacement of Right Shoulder Joint with Reverse Ball and Socket Synthetic Substitute, Open Approach (ICD-10-PCS; CPT 23472; principal; 2019-11-02 11:30)
DX: M19.011 Primary osteoarthritis, right shoulder (principal); I50.22 Chronic systolic (congestive) heart failure; I48.21 Permanent atrial fibrillation; I11.0 Hypertensive heart disease with heart failure; Z11.59 Encounter for screening for other viral diseases; I25.10 Atherosclerotic heart disease of native coronary artery without angina pectoris; J44.9 Chronic obstructive pulmonary disease, unspecified; E78.5 Hyperlipidemia, unspecified; G47.33 Obstructive sleep apnea (adult) (pediatric); H91.8X2 Other specified hearing loss, left ear; K21.9 Gastro-esophageal reflux disease without esophagitis; F32.9 Major depressive disorder, single episode, unspecified; F41.9 Anxiety disorder, unspecified; E66.9 Obesity, unspecified; Z68.29 Body mass index [BMI] 29.0-29.9, adult; Z79.01 Long term (current) use of anticoagulants; Z79.82 Long term (current) use of aspirin; Z79.51 Long term (current) use of inhaled steroids; Z79.899 Other long term (current) drug therapy; I25.2 Old myocardial infarction; Z86.73 Personal history of transient ischemic attack (TIA), and cerebral infarction without residual deficits; Z95.1 Presence of aortocoronary bypass graft; Z95.810 Presence of automatic (implantable) cardiac defibrillator; Z87.891 Personal history of nicotine dependence
CPT/HCPCS: 73030; 80048; 82962; 85025; 87635; 94002; 94640; 97166; 99251; C1713; C1776; G2023; J7040; J7120; A4216; G0463; J2405; U0003

== ENCOUNTER 2021-09-12 22:08 | Emergency (ER) | payer MEDICARE, SELFPAY ==
[2021-09-12 22:10] VITALS: BP 147/111; PULSE 78; RESP 14; TEMP 36.8; O2SAT 97; BMI 29.5
[2021-09-12 22:16] VITALS: O2SAT 96
[2021-09-12 22:50] VITALS: BP 150/96
[2021-09-12 23:02] VITALS: RESP 19; O2SAT 97
--- NOTE | 2021-09-12 23:02 | RAD_ITS ---
STUDY: X-RAY CHEST REASON FOR EXAM: Male, 86 years old. cough TECHNIQUE: PA and lateral COMPARISON: 09/20/2019. FINDINGS: There is infiltrate at the left base similar to the previous study of 09/20/2019. There is a pacemaker on the left. There is a right shoulder prosthesis. There is no demonstrated pleural abnormality. Normal size heart. Normal mediastinum and vee. Normal visualized pulmonary arteries. Normal visualized aortic arch and descending thoracic aorta. Normal visualized thoracic spine. Normal visualized ribs, clavicles, and shoulders. There is no demonstrated abnormality of the visualized soft tissue structures of the upper abdomen. RAD/Chest PA and Lateral IMPRESSION: There is cardiomegaly. There is pleural reaction and infiltrate at the left lung base. Electronically Signed: Anastacio Fermin MD at 23:57 EDT ,
[2021-09-12 23:06] LABS: Absolute Lymphocyte Count 0.97 X10^3/uL (0.83-4.51); Absolute Neutrophil Count 3.9 X10^3/uL (2.0-7.7); Basophil# 0.06 X10^3/uL; Eosinophil# 0.26 X10^3/uL; Eosinophils% 4.5 % (0-5); Hematocrit 38.9 % (40-54); Hemoglobin 12.9 g/dL (13.0-16.5); Lymphocyte # 0.97 X10^3/ul (0.83-4.51); Mean Corp Hgb Conc 33.2 g/dL (32-36); Mean Corpuscular Hgb 30.9 pg (27.0-32.0); Mean Corpuscular Volume 93.1 fL (80-94); Monocyte# 0.55 X10^3/uL; Monocyte% 9.6 % (0-10); NRBC Flagged by Analyzer 0 % (0-5); Neutrophil # 3.87 X10^3/uL (2.7-7.7); Neutrophil % 67.7 % (47-70); Platelet Count 219 K/mm3 (150-450); RBC Distribution Width CV 14.4 % (11.6-14.6); RBC Distribution Width SD 49.1 fl (35.1-43.9); Red Blood Count 4.18 M/mm3 (4.6-6.2); White Blood Count 5.7 K/mm3 (4.4-11.0)
[2021-09-12 23:09] VITALS: PULSE 77; RESP 17; RESP 18
[2021-09-12] MEDS: Ipratropium/Albuterol Sulfate 3 ML AMPUL.NEB INHALATION (23:09)
[2021-09-12 23:58] LABS: Anion Gap 6 (5-15); BUN 18 mg/dL (7-18); BUN/Creat Ratio 14.1 RATIO (10-20); Calcium,Total 8.6 mg/dL (8.5-10.1); Chloride 108 mmol/L (98-107); Creatinine, Serum 1.28 mg/dL (0.70-1.30); EST Glomerular Filtration Rate 57 mL/min (>60); Est Glom Filt Rate - Afr Amer 69 mL/min (>60); Estimated Creatinine Clearance 40.82 ml/min; Glucose 128 mg/dL (74-106); Magnesium 2.2 mg/dL (1.6-2.6); Potassium 3.5 mmol/L (3.5-5.1); Sodium Level 143 mmol/L (136-145); Troponin-I HS 21 pg/mL (3.0-78.0)
[2021-09-13 00:06] LABS: BNP,B-Type NATRIURETIC PEPTIDE 360.1 pg/mL (0-100)
--- NOTE | 2021-09-13 01:37 | EX.ED.DYSGE1 ---
HPI History of Present Illness Chief Complaint: Shortness of Breath Narrative Narrative: Patient is a 86-year-old male with past medical history of chronic atrial fibrillation on Eliquis. 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 He states that despite this he does not need supplemental oxygen. He reports that he feels normal at rest but is with any type of exertion that he feels like his shortness of breath worsens. He states that this has been his normal however for the past few years. He does state that he has had occasional fluid on the lung which has needed drained in the past. He denies any fevers or chills or chest pain but states that with the history of chronic lung dysfunction as well as the fact that he has needed drained in the past was concerning for him and he was concerned he may need a therapeutic tap or have developed an infection and therefore comes in for evaluation [facility] Home Medications lisinopril 40 mg PO DAILY 09/15/13 [History Last Taken 11/02/19] zolpidem 5 mg PO QHS PRN PRN 09/15/13 [History Last Taken Unknown] ipratropium-albuterol 1 puff INHALATION 4X/DAY 09/20/19 [History Last Taken Unknown] amlodipine 10 mg PO DAILY 10/31/19 [History Last Taken 11/02/19] aspirin 81 mg PO DAILY@0800 10/31/19 [History Last Taken Unknown] apixaban 5 mg tablet 5 mg PO BID #60 tab 03/04/21 [Rx Last Taken Unknown] atorvastatin 80 mg tablet 80 mg PO QHS tab 03/22/21 [History Last Taken Unknown] carvedilol 12.5 mg tablet 6.25 mg PO BID #180 tab 05/21/21 [Rx Last Taken Unknown] furosemide 20 mg tablet 20 mg PO DAILY #90 tab 06/17/21 [Rx Last Taken Unknown] Allergy/AdvReac Type Severity Reaction Status Date / Time Penicillins [PCN] Allergy Rash Verified 09/12/21 22:09 Sulfa (Sulfonamide Allergy Rash Verified 09/12/21 22:09 Antibiotics) Family History Mother Myocardial infarction Sister Tuberculosis Father Peripheral artery disease Surgical History H/O coronary angioplasty History of cardiac catheterization History of cholecystectomy History of left inguinal hernia repair History of total left knee replacement S/P CABG (coronary artery bypass graft) S/P implantation of automatic cardioverter/defibrillator (AICD) Social History Smoking Status: Former smoker ROS ROS ED Constitutional Constitutional ED: Denies chills or fever(s) ENT ENT ED: Denies sore throat Cardiovascular Cardiovascular: Denies chest pain Respiratory/Chest Respiratory/Chest: Reports cough, dyspnea and dyspnea on exertion Gastrointestinal Gastrointestinal: Denies abdominal pain, diarrhea, nausea or vomiting Genitourinary Genitourinary ED: Denies dysuria Musculoskeletal Musculoskeletal: Denies myalgias Integumentary Denies rash Neurologic Neurologic: Denies headache(s) Hematologic/Lymphatic Hematologic/Lymphatic: Reports easy bleeding and easy bruising EXAM Physical Exam Const Vital Signs: 09/12/21 22:10 09/12/21 22:16 09/12/21 22:50 Temperature 98.2 F Temperature Source Temporal Pulse Rate 78 Respiratory Rate 14 Respiratory Effort Short of Breath Respiratory Depth Normal Respiratory Pattern Normal Blood Pressure 147/111 H 150/96 H Blood Pressure Mean 123 114 Pulse Ox 97 Oxygen Delivery Method Room Air Room Air 09/12/21 23:02 09/12/21 23:09 Temperature Temperature Source Pulse Rate 77 Respiratory Rate 19 H 18 Respiratory Effort Respiratory Depth Respiratory Pattern Normal Blood Pressure Blood Pressure Mean Pulse Ox 97 Oxygen Delivery Method Room Air Positive well nourished and well developed General Appearance ED: well developed HEENT Reports dry mucous membranes HEENT Narrative: No tongue or lip swelling no oral lesions no airway edema or compromise Mouth ED: Yes dry mucous membranes Mouth: dry mucous membranes Eyes PERRL and EOMs intact bilaterally Neck supple and no JVD Chest Wall inspection of chest normal Resp normal respiratory effort Resp Narrative: Breath sounds are are diminished throughout with rhonchi noted in the left lower lobe. There is faint expiratory wheeze bilaterally to the lower lobes as well Cardio regular rate Rate: other Other Details: Irregularly irregular rhythm with regular rate consistent with history of atrial fibrillation GI normal to inspection, nondistended, normoactive bowel sounds, non-tender, non-distended and no masses Auscultation: normoactive bowel sounds Palpation: soft Extremity normal to inspection Neuro oriented x3 and CN's II-XII intact bilaterally Sensorium / Orientation: alert Psych mental status grossly normal Skin no rashes or lesions noted MDM MDM MDM Narrative Medical decision making narrative: Patient is a to the ER hypertensive but does have a history of this. Moreover he was satting in the mid 90s on room air. He reports a longstanding history of chronic lung disorder from his work exposure. At this time his symptoms seem chronic in nature but with concern he could be developing an underlying infection or having electrolyte derangements I did elect to perform a chest x-ray with basic laboratory studies. Blood work revealed no clinically significant findings. X-ray showed pleural reaction with infiltrate at the left lung base but according to the radiologist report this was infiltrate was noted to be present in 2019. Therefore I feel that this is chronic in nature and I do not believe the patient needs antibiotics especially as he is afebrile with no leukocytosis or left shift. The plan of care was discussed with the patient and he is agreeable to it. At this time as patient is not hypoxic or in respiratory distress and his work-up does not reveal any electrolyte disturbance or acute kidney injury he can be discharged home and follow-up on an outpatient basis Lab Data Attestation: I reviewed the patient's lab results. Labs: Laboratory Results - last 24 hr 09/12/21 09/12/21 09/12/21 22:31 22:31 22:31 WBC 5.7 RBC 4.18 L Hgb 12.9 L Hct 38.9 L MCV 93.1 MCH 30.9 MCHC 33.2 RDW Std Deviation 49.1 H RDW Coeff of Theresa 14.4 Plt Count 219 MPV 11.0 Immature Gran % (Auto) 0.200 Neut % (Auto) 67.7 Lymph % (Auto) 17.0 L Nelson % (Auto) 9.6 Eos % (Auto) 4.5 Baso % (Auto) 1.0 Absolute Neuts (auto) 3.9 Absolute Lymphs (auto) 0.97 Nucleated RBC % 0 Sodium 143 Potassium 3.5 Chloride 108 H Carbon Dioxide 29.0 Anion Gap 6 BUN 18 Creatinine 1.28 Estim Creat Clear Calc 40.82 Est GFR (MDRD) Af Amer 69 Est GFR (MDRD) Non-Af 57 L BUN/Creatinine Ratio 14.1 Glucose 128 H Calcium 8.6 Magnesium 2.2 Troponin I High Sens 21 B-Natriuretic Peptide 360.1 H Radiography Diagnostic Testing: Clinical Impression(s) from Imaging Studies Chest X-Ray 09/12/21 23:02 IMPRESSION: There is cardiomegaly. There is pleural reaction and infiltrate at the left lung base. Electronically Signed: Anastacio Fermin MD at 23:57 EDT Reading Location ID and State: [facility] / [place] Tel , Service support , Chest x-ray as interpreted by the emergency medicine physician reveals cardiomegaly with atelectasis versus infiltrate in the left lower lung Discharge Plan Triage Chief Complaint: Shortness of Breath ED Provider: Miki Woods Dx/Rx/DC Orders Clinical Impression: Dyspnea, Chronic atrial fibrillation Instructions: ED Dyspnea Prescriptions: No Action atorvastatin 80 mg tablet 80 mg PO QHS RF: 0 zolpidem 5 MG tablet 5 mg PO QHS PRN PRN (Reason: Insomnia) RF: 0 lisinopril 40 MG tablet 40 mg PO DAILY RF: 0 ipratropium-albuterol 1 PUFF inhaler 1 puff inhalation 4X/DAY RF: 0 amlodipine 10 MG tablet 10 mg PO DAILY RF: 0 aspirin 81 MG tablet,chewable 81 mg PO DAILY@0800 RF: 0 apixaban 5 mg tablet 5 mg PO BID Qty: 60 RF: 11 carvedilol 12.5 mg tablet 6.25 mg PO BID Qty: 180 RF: 3 furosemide 20 mg tablet 20 mg PO DAILY Qty: 90 RF: 3 Primary Care Provider: Torin Noyola Referrals: Torin Noyola MD [Primary Care Provider] - Disposition Disposition: Home, Self Care Discharge Date/Time: 09/13/21 01:59
== END 2021-09-13 01:59 | disposition home or self-care (01) ==
PROVIDERS: Emergency Provider Emergency Medicine; PCP Internal Medicine; Visit Provider Emergency Medicine
DX: I48.20 Chronic atrial fibrillation, unspecified (principal); I10 Essential (primary) hypertension; Z79.82 Long term (current) use of aspirin; Z79.01 Long term (current) use of anticoagulants; Z79.899 Other long term (current) drug therapy; Z87.891 Personal history of nicotine dependence; Z95.1 Presence of aortocoronary bypass graft; Z95.810 Presence of automatic (implantable) cardiac defibrillator
CPT/HCPCS: 71046; 80048; 83735; 83880; 84484; 85025; 94640; 94760; 99283

== ENCOUNTER → 2021-10-25 | Outpatient (CLI) | payer MEDICARE, SELFPAY ==
[2021-10-25 09:58] LABS: Absolute Lymphocyte Count 0.54 X10^3/uL (0.83-4.51); Basophil# 0.04 X10^3/uL; Basophil% 0.8 % (0-1); Eosinophil# 0.25 X10^3/uL; Eosinophils% 4.7 % (0-5); Hematocrit 38.1 % (40-54); Hemoglobin 12.2 g/dL (13.0-16.5); Lymphocyte # 0.54 X10^3/ul (0.83-4.51); Lymphocyte % 10.2 % (19-41); Mean Corpuscular Volume 96.9 fL (80-94); Mean Platelet Vol. 10.6 fl (6.2-12.0); Monocyte% 9.4 % (0-10); NRBC Flagged by Analyzer 0 % (0-5); Neutrophil # 3.97 X10^3/uL (2.7-7.7); Neutrophil % 74.7 % (47-70); POSITIVE DIFFERENTIAL YES; Platelet Count 191 K/mm3 (150-450); RBC Distribution Width CV 14.6 % (11.6-14.6); RBC Distribution Width SD 51.8 fl (35.1-43.9); Red Blood Count 3.93 M/mm3 (4.6-6.2); White Blood Count 5.3 K/mm3 (4.4-11.0)
[2021-10-25 10:05] LABS: Differential Indicated SCAN CRITERIA MET
[2021-10-25 10:19] LABS: Anion Gap 3 (5-15); BUN 20 mg/dL (7-18); BUN/Creat Ratio 16.1 RATIO (10-20); Calcium,Total 8.8 mg/dL (8.5-10.1); Chloride 109 mmol/L (98-107); Creatinine, Serum 1.24 mg/dL (0.70-1.30); EST Glomerular Filtration Rate 59 mL/min (>60); Est Glom Filt Rate - Afr Amer 71 mL/min (>60); Glucose 136 mg/dL (74-106); Potassium 3.9 mmol/L (3.5-5.1); Sodium Level 140 mmol/L (136-145)
== END | disposition home or self-care (01) ==
PROVIDERS: PCP Internal Medicine; Referring Provider Nurse Practitioner Gerontology; Visit Provider Nurse Practitioner Gerontology
DX: R06.00 Dyspnea, unspecified (principal)
CPT/HCPCS: 36415; 80048; 83880; 85025

== ENCOUNTER 2023-01-05 16:14 | Emergency (ER) | payer MEDICARE, SELFPAY ==
[2023-01-05 16:17] VITALS: BP 136/68; PULSE 78; RESP 18; TEMP 36.6; O2SAT 95; BMI 31.1
--- NOTE | 2023-01-05 16:37 | EKG12_ITS ---
Test Reason : SOB Blood Pressure : / mmHG Vent. Rate : 081 BPM Atrial Rate : 000 BPM P-R Int : 000 ms QRS Dur : 166 ms QT Int : 444 ms P-R-T Axes : 000 -65 054 degrees QTc Int : 515 ms Atrial fibrillation with premature ventricular or aberrantly conducted complexes Left axis deviation Right bundle branch block Abnormal ECG Confirmed by FRANC LUCAS, DAVY ([id number]), writer editor MOSHE YUAN ([id number]) on 01/09/2023 11:35:48 AM Referred By: Confirmed By:DAVY BRUNER MD
--- NOTE | 2023-01-05 16:37 | EX.ED.DYSGE1 ---
HPI History of Present Illness Chief Complaint: Shortness of Breath Informant: patient Onset/Context/Timing Onset: Today Narrative Narrative: Patient presents feeling weak with some slight shortness of breath today. He tried to take a COVID test at home but thinks it was too old because it did not work. He has not had a fever. He had a mild cough secondary to some sinus drainage. No chest pain. He states he felt well over the weekend. He reports feeling slightly dizzy today. [facility] Medical History Atherosclerotic heart disease of [place] coronary artery without angina pectoris Atrial fibrillation CVA (cerebral vascular accident) Home Medications lisinopril 40 mg tablet 40 mg PO DAILY blood pressure 09/15/13 [History Last Taken 11/02/19] zolpidem 5 mg tablet 5 mg PO QHS PRN PRN Insomnia 09/15/13 [History Last Taken Unknown] ipratropium 20 mcg-albuterol 100 mcg/actuation mist for inhalation 1 puff inhalation 4X/DAY copd 09/20/19 [History Last Taken Unknown] aspirin 81 mg chewable tablet 81 mg PO DAILY@0800 heart health 10/31/19 [History Last Taken Unknown] buspirone 5 mg tablet 5 mg PO BID PRN anxiety 10/25/21 [History Last Taken Unknown] atorvastatin 80 mg tablet 80 mg PO QHS cholesterol #90 tabs 02/28/22 [Rx Last Taken Unknown] apixaban 5 mg tablet 5 mg PO BID blood thinner #60 tabs 05/06/22 [Rx Last Taken Unknown] furosemide 20 mg tablet 20 mg PO DAILY #90 tabs 06/02/22 [Rx Last Taken Unknown] carvedilol 6.25 mg tablet 6.25 mg PO BID heart #180 tabs 06/09/22 [Rx Last Taken Unknown] amlodipine 10 mg tablet 10 mg PO DAILY #90 tabs 12/11/22 [Rx Last Taken Unknown] amlodipine 5 mg tablet 5 mg PO DAILY 01/05/23 [History Last Taken Unknown] Allergy/AdvReac Type Severity Reaction Status Date / Time Penicillins [PCN] Allergy Rash Verified 01/05/23 16:17 Sulfa (Sulfonamide Allergy Rash Verified 01/05/23 16:17 Antibiotics) Family History Mother Myocardial infarction Sister Tuberculosis Father Peripheral artery disease Surgical History H/O coronary angioplasty History of cardiac catheterization History of cholecystectomy History of left inguinal hernia repair History of total left knee replacement S/P CABG (coronary artery bypass graft) S/P implantation of automatic cardioverter/defibrillator (AICD) Social History Smoking Status: Former smoker ROS ROS ED Constitutional Constitutional ED: Denies chills or fever(s) Eyes Eyes: Denies change in vision ENT ENT ED: Denies rhinorrhea or sore throat Cardiovascular Cardiovascular: Denies chest pain Respiratory/Chest Respiratory/Chest: Reports cough and dyspnea Gastrointestinal Gastrointestinal: Denies abdominal pain, diarrhea, nausea or vomiting Genitourinary Genitourinary ED: Denies dysuria Musculoskeletal Musculoskeletal: Denies back pain or extremity pain Integumentary Denies Abrasions or rash Neurologic Neurologic: Reports weakness; Denies headache(s) Psychiatric Psychiatric: Denies anxiety or depression Allergic/Immunologic Allergic/Immunologic ED: Denies lip swelling or urticaria EXAM Physical Exam Const Vital Signs: 01/05/23 16:17 01/05/23 16:34 01/05/23 16:35 Temperature 97.8 F Temperature Source Temporal Pulse Rate 78 Respiratory Rate 18 Respiratory Effort Short of Breath Short of Breath Respiratory Depth Normal Respiratory Pattern Normal Normal Blood Pressure 136/68 H Blood Pressure Mean 90 Pulse Ox 95 Oxygen Delivery Method Room Air Room Air 01/05/23 17:33 Temperature Temperature Source Pulse Rate 74 Respiratory Rate 25 H Respiratory Effort Respiratory Depth Respiratory Pattern Blood Pressure 141/88 H Blood Pressure Mean 105 Pulse Ox 97 Oxygen Delivery Method Room Air Positive well nourished and well developed General Appearance ED: well developed HEENT Reports normocephalic and head/scalp atraumatic Eyes PERRL and EOMs intact bilaterally Neck supple Chest Wall inspection of chest normal and palpation of chest normal Resp normal respiratory effort and clear to auscultation bilaterally Cardio Rhythm: abnormal rhythm irregularly irregular GI non-tender Auscultation: hypoactive bowel sounds Palpation: soft Extremity normal to inspection Neuro oriented x3 and no sensory deficits noted Sensorium / Orientation: alert Motor Exam: strength 5/5 throughout Psych mental status grossly normal Skin no rashes or lesions noted MDM MDM MDM Narrative Medical decision making narrative: Given the patient's dizziness, he is placed on quality assurance monitor. EKG obtained to evaluate for cardiac arrhythmia/ischemia. Labwork obtained to evaluate for leukocytosis, anemia, and electrolyte derangement. Chest x-ray obtained to evaluate for acute lung pathology, cardiac size, or mediastinal abnormality. Swab for COVID and influenza obtained. History & Record Review Discussion w/independent historian: Patient and Family Additional record(s) reviewed:: Prior labs Lab Data Attestation: I reviewed the patient's lab results. Labs: Laboratory Results - last 24 hr 01/05/23 17:05 WBC 6.2 RBC 4.03 L Hgb 12.7 L Hct 38.3 L MCV 95.0 H MCH 31.5 MCHC 33.2 RDW Std Deviation 46.8 H RDW Coeff of Theresa 13.4 Plt Count 208 MPV 10.0 Immature Gran % (Auto) 0.500 Neut % (Auto) 73.7 H Lymph % (Auto) 12.8 L [place] % (Auto) 8.7 Eos % (Auto) 3.5 Baso % (Auto) 0.8 Absolute Neuts (auto) 4.6 Absolute Lymphs (auto) 0.80 L Nucleated RBC % 0 Sodium 139 Potassium 3.9 Chloride 108 H Carbon Dioxide 25.0 Anion Gap 6 BUN 24 H Creatinine 1.54 H Estim Creat Clear Calc 33.31 Est GFR (MDRD) Af Amer 55 L Est GFR (MDRD) Non-Af 46 L BUN/Creatinine Ratio 15.6 Glucose 122 H Calcium 8.7 Radiography Chest X-Ray - ED: 1 View, Read by ED Physician and - (Chronic pleural effusion on the left base. Interval change when compared to prior study.) Diagnostic Testing: Clinical Impression(s) from Imaging Studies Chest X-Ray 01/05/23 17:22 IMPRESSION: Unchanged left-sided pleural effusion with left lower lobe opacity suggestive of atelectasis versus infiltrate. If indicated, these findings can be assessed with follow-up CT chest. Electronically Signed: Judy Peterson MD at 18:03 EDT , EKG Initial EKG: Attestation: I personally reviewed and interpreted this EKG as follows: Interpretation: Atrial Fibrillation (Atrial fibrillation 81 bpm. PVCs noted. No acute ischemia and unchanged when compared to prior.) Treatment and Re-Evaluation :: CBC was normal white count at 6.2 with normal differential. Chemistry studies significant only for BUN of 24 creatinine 1.54. This is slightly increased when compared to his prior labs. Glucose is 122. Swab for COVID and influenza is negative. Portable chest x-ray per my interpretation reveals chronic pleural effusion at the left base unchanged when compared to prior study. Radiology interpretation is reviewed and agrees. EKG is atrial fibrillation with no acute ischemia. Patient will be given 500 cc IV fluid bolus for hydration. On repeat evaluation he reports feeling improved. He is reassured with our findings and will increase p.o. fluids. He was advised that if he develops worsened cough or fever he needs to be reevaluated. He voices understanding and agreement. Discharge Plan Triage Chief Complaint: Shortness of Breath ED Provider: Junie Acosta Dx/Rx/DC Orders Clinical Impression: Weakness, Dehydration Instructions: ED Dehydration (Adult), ED Weakness (Uncertain Cause) Prescriptions: No Action buspirone 5 mg tablet 5 mg PO BID PRN (Reason: anxiety) zolpidem 5 MG tablet 5 mg PO QHS PRN PRN (Reason: Insomnia) lisinopril 40 MG tablet 40 mg PO DAILY Patient Comments: TK 1 T PO D ipratropium-albuterol 1 PUFF inhaler 1 puff inhalation 4X/DAY aspirin 81 MG tablet,chewable 81 mg PO DAILY@0800 amlodipine 5 mg tablet 5 mg PO DAILY Patient Comments: TAKE 1 TABLET BY MOUTH DAILY atorvastatin 80 mg tablet 80 mg PO QHS Qty: 90 3RF apixaban 5 mg tablet 5 mg PO BID Qty: 60 11RF furosemide 20 mg tablet 20 mg PO DAILY Qty: 90 4RF carvedilol 6.25 mg tablet 6.25 mg PO BID Qty: 180 3RF amlodipine 10 mg tablet 10 mg PO DAILY Qty: 90 3RF Primary Care Provider: Torin Noyola Referrals: Torin Noyola MD [Primary Care Provider] - As Needed Disposition Disposition: Home, Self Care
[2023-01-05 17:11] LABS: Absolute Neutrophil Count 4.6 X10^3/uL (2.0-7.7); Basophil# 0.05 X10^3/uL; Basophil% 0.8 % (0-1); Eosinophil# 0.22 X10^3/uL; Eosinophils% 3.5 % (0-5); Hematocrit 38.3 % (40-54); Hemoglobin 12.7 g/dL (13.0-16.5); Lymphocyte % 12.8 % (19-41); Mean Corp Hgb Conc 33.2 g/dL (32-36); Mean Corpuscular Hgb 31.5 pg (27.0-32.0); Monocyte# 0.54 X10^3/uL; Monocyte% 8.7 % (0-10); NRBC Flagged by Analyzer 0 % (0-5); Neutrophil % 73.7 % (47-70); Platelet Count 208 K/mm3 (150-450); RBC Distribution Width CV 13.4 % (11.6-14.6); RBC Distribution Width SD 46.8 fl (35.1-43.9); Red Blood Count 4.03 M/mm3 (4.6-6.2); White Blood Count 6.2 K/mm3 (4.4-11.0)
--- NOTE | 2023-01-05 17:22 | RAD_ITS ---
STUDY: X-RAY CHEST REASON FOR EXAM: Male, 87 years old. cough, sob TECHNIQUE: Single AP portable view of the chest. COMPARISON: 09/12/2021. FINDINGS: Left-sided pacemaker in place. The lungs are normally expanded. The right hemithorax is clear. Opacity in the left lung base seen which could represent atelectasis versus infiltrate. There is left-sided pleural effusion. Midline sternotomy wires with borderline cardiomegaly. Normal mediastinum and vee. Normal visualized pulmonary arteries. There is atherosclerotic calcification of the aortic arch with tortuosity. There are diffuse degenerative changes of the visualized thoracic spine. Right-sided humeral prosthesis in place. Right upper quadrant surgical clips. RAD/Chest 1 View (Portable) IMPRESSION: Unchanged left-sided pleural effusion with left lower lobe opacity suggestive of atelectasis versus infiltrate. If indicated, these findings can be assessed with follow-up CT chest. Electronically Signed: Judy Peterson MD at 18:03 EDT ,
[2023-01-05 17:27] LABS: Anion Gap 6 (5-15); BUN 24 mg/dL (7-18); BUN/Creat Ratio 15.6 RATIO (10-20); Calcium,Total 8.7 mg/dL (8.5-10.1); Chloride 108 mmol/L (98-107); Creatinine, Serum 1.54 mg/dL (0.70-1.30); EST Glomerular Filtration Rate 46 mL/min (>60); Est Glom Filt Rate - Afr Amer 55 mL/min (>60); Estimated Creatinine Clearance 33.31 ml/min; Glucose 122 mg/dL (74-106); Potassium 3.9 mmol/L (3.5-5.1); Sodium Level 139 mmol/L (136-145)
[2023-01-05 17:33] VITALS: BP 141/88; PULSE 74; RESP 25; O2SAT 97
[2023-01-05 18:16] VITALS: BP 152/90; PULSE 69; RESP 18; O2SAT 97
== END 2023-01-05 18:39 | disposition home or self-care (01) ==
PROVIDERS: Emergency Provider Emergency Medicine; PCP Internal Medicine; Visit Provider Emergency Medicine
DX: R53.1 Weakness (principal); E86.0 Dehydration; R42 Dizziness and giddiness; Z87.891 Personal history of nicotine dependence; R06.02 Shortness of breath; I25.10 Atherosclerotic heart disease of native coronary artery without angina pectoris
CPT/HCPCS: 71045; 80048; 85025; 87428; 93005; 96360; 99285

== ENCOUNTER 2023-03-25 15:01 | Observation (INO) | payer MEDICARE, SELFPAY ==
[2023-03-25] VITALS (20 sets, daily range): BP systolic 117–152; BP diastolic 70–93; PULSE 62–80; RESP 12–25; TEMP 36.2–36.7; O2SAT 95–99; BMI 31.3; BMI 30.4
--- NOTE | 2023-03-25 15:23 | EDS_ITS ---
HPI History of Present Illness Chief Complaint: Vision Prob Detail of Chief Complaint: Concern for stroke Informant: patient and spouse/S.O. Narrative Narrative: Patient presents the emergency department with concern for stroke. Patient [facility] that he was seen at returns clerk office today because of right-sided vision loss in the right eye. 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 Patient states that he had an episode of some confusion yesterday around 10 AM when trying to get out of the vehicle after taking his to the doctor's office. Patient also states that he was playing cards around 6 PM yesterday when he noticed that he can only see half of what he was looking at and can see the right side of things. He would stick his hand and fingers and the right side of his face and could not see them. Patient states that those symptoms resolved today around 1 PM. Patient tells me his vision is back to normal. He denies difficulty with speech. He denies focal weakness. Patient on Eliquis for history of A-fib. Denies any falls or head injuries. He denies recent illness. [facility] Medical History Atherosclerotic heart disease of [place] coronary artery without angina pectoris Atrial fibrillation CVA (cerebral vascular accident) Home Medications lisinopril 40 mg tablet 40 mg PO DAILY BLOOD PRESSURE 09/15/13 [History Last Taken 03/25/23] zolpidem 5 mg tablet 5 mg PO QHS PRN INSOMNIA 09/15/13 [History Last Taken Unknown] ipratropium 20 mcg-albuterol 100 mcg/actuation mist for inhalation 1 puff inhalation 4X/DAY PRN COPD 09/20/19 [History Last Taken Unknown] aspirin 81 mg chewable tablet 81 mg PO DAILY HEART HEALTH 10/31/19 [History Last Taken 03/25/23] buspirone 5 mg tablet 5 mg PO BID PRN ANXIETY 10/25/21 [History Last Taken Unknown] apixaban 5 mg tablet 5 mg PO BID BLOOD THINNER #60 tabs 05/06/22 [Rx Last Taken 03/25/23] furosemide 20 mg tablet 20 mg PO DAILY EDEMA #90 tabs 06/02/22 [Rx Last Taken 03/25/23] carvedilol 6.25 mg tablet 6.25 mg PO BID HEART #180 tabs 06/09/22 [Rx Last Taken 03/25/23] amlodipine 10 mg tablet 10 mg PO DAILY BLOOD PRESSURE #90 tabs 12/11/22 [Rx Last Taken 03/25/23] atorvastatin 80 mg tablet 80 mg PO QHS CHOLESTEROL #90 tabs 03/02/23 [Rx Last Taken 03/24/23] dorzolamide 2 % eye drops 1 drp ophthalmic (eye) TID GLAUCOMA 03/25/23 [History Last Taken 03/24/23] latanoprost 0.005 % eye drops 1 drp ophthalmic (eye) QHS GLAUCOOMA 03/25/23 [History Last Taken 03/24/23] Allergy/AdvReac Type Severity Reaction Status Date / Time Penicillins [PCN] Allergy Rash Verified 03/25/23 15:03 Sulfa (Sulfonamide Allergy Rash Verified 03/25/23 15:03 Antibiotics) Family History Mother Myocardial infarction Sister Tuberculosis Father Peripheral artery disease Surgical History H/O coronary angioplasty History of cardiac catheterization History of cholecystectomy History of left inguinal hernia repair History of total left knee replacement S/P CABG (coronary artery bypass graft) S/P implantation of automatic cardioverter/defibrillator (AICD) Social History Smoking Status: Former smoker ROS ROS ED Review of Systems ROS Unobtainable: other Constitutional Constitutional ED: Reports lethargy; Denies chills, fever(s), sweats or weight loss Eyes Eyes: Reports change in vision; Denies blurry vision or diplopia ENT ENT ED: Denies rhinorrhea or sore throat Cardiovascular Cardiovascular: Reports chest pain and racing heartbeat; Denies orthopnea Respiratory/Chest Respiratory/Chest: Reports dyspnea and dyspnea on exertion; Denies cough, orthopnea or sputum Gastrointestinal Gastrointestinal: Denies abdominal pain, diarrhea, nausea or vomiting Genitourinary Genitourinary ED: Denies dysuria, hematuria or urinary frequency Musculoskeletal Musculoskeletal: Denies arthralgias, back pain, myalgias or neck pain Integumentary Denies abscess, Abrasions or rash Neurologic Neurologic: Reports confusion; Denies headache(s) or weakness Psychiatric Psychiatric: Denies anxiety, depression or suicidal thoughts Endocrine Endocrinology: Denies polydipsia, polyphagia or polyuria Hematologic/Lymphatic Hematologic/Lymphatic: Denies easy bleeding, easy bruising or lymphadenopathy Allergic/Immunologic Allergic/Immunologic ED: Denies mouth swelling, tongue swelling or urticaria EXAM Physical Exam Const Vital Signs: 03/25/23 15:02 03/25/23 15:01 03/25/23 15:22 Temperature 97.2 F L Temperature Source Temporal Pulse Rate 80 68 Respiratory Rate 14 16 Blood Pressure 141/92 H 131/85 H Blood Pressure Mean 108 100 Pulse Ox 97 98 Oxygen Delivery Method Room Air Room Air Room Air 03/25/23 15:22 03/25/23 15:37 03/25/23 15:52 Temperature Temperature Source Pulse Rate 70 71 72 Respiratory Rate 16 12 12 Blood Pressure 147/79 H 122/83 H 145/90 H Blood Pressure Mean 101 96 108 Pulse Ox 99 98 95 Oxygen Delivery Method Room Air Room Air Room Air 03/25/23 16:00 03/25/23 16:15 03/25/23 16:30 Temperature Temperature Source Pulse Rate 62 66 70 Respiratory Rate 16 16 14 Blood Pressure 135/78 H 142/88 H 135/81 H Blood Pressure Mean 97 106 99 Pulse Ox 99 96 99 Oxygen Delivery Method Room Air Room Air Room Air 03/25/23 16:08 03/25/23 16:10 03/25/23 16:15 Temperature Temperature Source Pulse Rate 72 75 71 Respiratory Rate 24 H 25 H 24 H Blood Pressure 142/88 H 135/81 H Blood Pressure Mean 105 98 Pulse Ox 99 98 Oxygen Delivery Method 03/25/23 16:29 03/25/23 16:30 03/25/23 16:40 Temperature Temperature Source Pulse Rate 74 78 75 Respiratory Rate 20 H 22 H 21 H Blood Pressure 131/84 H Blood Pressure Mean 97 Pulse Ox 96 96 96 Oxygen Delivery Method 03/25/23 16:45 03/25/23 16:50 03/25/23 17:00 Temperature Temperature Source Pulse Rate 74 73 70 Respiratory Rate 17 22 H 20 H Blood Pressure 117/86 H 128/70 H Blood Pressure Mean 98 87 Pulse Ox 97 98 98 Oxygen Delivery Method 03/25/23 17:10 03/25/23 17:15 Temperature Temperature Source Pulse Rate 74 Respiratory Rate 18 Blood Pressure 145/70 H 151/92 H Blood Pressure Mean 95 111 Pulse Ox 99 Oxygen Delivery Method Room Air Positive well nourished and well developed General Appearance ED: well developed and NAD HEENT Reports TM's clear and moist mucous membranes normocephalic and atraumatic; Negative for trauma or tenderness Tympanic Membrane ED: Yes TM's clear Eyes PERRL and EOMs intact bilaterally General Eye ED: Negative for pale conjunctiva or scleral icterus Neck no lymphadenopathy, supple and no JVD General: Negative for tenderness Chest Wall inspection of chest normal and palpation of chest normal Chest: Negative for tenderness Resp normal respiratory effort and clear to auscultation bilaterally Effort and Inspection: Negative for respiratory distress or pain with movement Auscultation: Negative for rhonchi, wheezes or diminished lung sounds Cardio regular rate, regular rhythm, S1 normal heart sound, S2 normal heart sound and no murmurs Peripheral Pulses: pulses 2+ throughout GI normal to inspection, nondistended, normoactive bowel sounds, soft to palpation, non-tender, non-distended and no masses Back/Spine no CVA tenderness and no thoracic nor lumbar tenderness Extremity normal to inspection General Extremety ED: Negative for edema General Extremity: Negative for edema Neuro oriented x3, CN's II-XII intact bilaterally, no sensory deficits noted and gait normal Neuro Narrative: No focal deficits noted on exam. NIH stroke scale 0. Sensorium / Orientation: awake, alert, oriented to person, oriented to place and oriented to time Motor Exam: strength 5/5 throughout and strength abnormal Psych mental status grossly normal Skin no rashes or lesions noted and no wounds MDM MDM MDM Narrative Medical decision making narrative: Patient presented with symptoms concerning for stroke. Sent in by ophthalmology who had concern for stroke. Patient had episode of confusion yesterday and vision field loss. Symptoms currently resolved. IV line established on arrival. EKG obtained showed atrial fibrillation with PACs. No acute ST segment changes noted. He had right bundle branch block. CBC with differential obtained showed a white count of 8.0 with hemoglobin 13.8 and platelet counts of 242. Chemistries unremarkable. BUN 23 creatinine 1.5. Urinalysis unremarkable CTA head and neck unremarkable. Case will be discussed with hospitalist evaluate for admission for TIA work-up Lab Data Attestation: I reviewed the patient's lab results. Labs: Laboratory Results - last 24 hr 03/25/23 03/25/2303/25/23 15:15 15:31 16:05 WBC 8.0 RBC 4.50 L Hgb 13.9 Hct 43.5 MCV 96.7 H MCH 30.9 MCHC 32.0 RDW Std Deviation 48.0 H RDW Coeff of [place] 13.3 Plt Count 242 MPV 10.7 Immature Gran % (Auto) 0.400 Neut % (Auto) 73.9 H Lymph % (Auto) 13.1 L [place]mer[place] % (Auto) 8.7 Eos % (Auto) 3.2 Baso % (Auto) 0.7 Absolute Neuts (auto) 5.9 Absolute Lymphs (auto) 1.05 Nucleated RBC % 0 PT 16.6 H INR 1.3 APTT 34.5 Sodium 138 Potassium 3.8 Chloride 107 Carbon Dioxide 30.0 Anion Gap 1 L BUN 23 H Creatinine 1.51 H Estim Creat Clear Calc 33.97 Est GFR (MDRD) Af Amer 57 L Est GFR (MDRD) Non-Af 47 L BUN/Creatinine Ratio 15.2 Glucose 101 Calcium 8.9 Troponin I High Sens 16 Urine Color Yellow Urine Clarity Clear Urine pH 6.0 Ur Specific [place] 1.020 Urine Protein Negative Urine Glucose (UA) Normal Urine Ketones Negative Urine Occult Blood 25 H Urine Nitrite Negative Urine Bilirubin Negative Urine Urobilinogen Normal Ur Leukocyte Esterase Negative Urine RBC 0-5 SEEN Urine WBC 0 SEEN Ur Squamous Epith Cells 0 SEEN Urine Bacteria 0 SEEN Urine Mucus 0 SEEN POC Glucose 95 Radiography Chest X-Ray - ED: 1 View Diagnostic Testing: Clinical Impression(s) from Imaging Studies Head/Neck CTA 03/25/23 15:23 IMPRESSION: No hemodynamically significant stenosis. Electronically Signed: Will Patel DO at 17:12 EST , Chest X-Ray 03/25/23 16:20 IMPRESSION: Left basilar effusion and consolidation. Electronically Signed: Will Patel DO at 16:48 EST , 1 view chest x-ray obtained interpreted by myself is left lung consolidation versus mass. Unchanged from prior. Radiology felt there was left basilar effusion and consolidation. 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 EKG Initial EKG: Attestation: I personally reviewed and interpreted this EKG as follows: Comments: Atrial fibrillation and right bundle branch block with rate of 73 bpm Discharge Plan Triage Chief Complaint: Vision Prob ED Provider: Urszula Yin Dx/Rx/DC Orders Clinical Impression: Brain TIA, Altered mental status, History of atrial fibrillation Prescriptions: No Action buspirone 5 mg tablet 5 mg PO BID PRN (Reason: anxiety) zolpidem 5 MG tablet 5 mg PO QHS PRN PRN (Reason: Insomnia) lisinopril 40 MG tablet 40 mg PO DAILY Patient Comments: TK 1 T PO D ipratropium-albuterol 1 PUFF inhaler 1 puff inhalation 4X/DAY aspirin 81 MG tablet,chewable 81 mg PO DAILY@0800 dorzolamide 2 % drops 1 drp ophthalmic (eye) TID Patient Comments: Instill 1 drop into both eyes three times a day as directed latanoprost 0.005 % drops 1 drp ophthalmic (eye) QHS Patient Comments: Instill 1 drop in both eyes nightly apixaban 5 mg tablet 5 mg PO BID Qty: 60 11RF furosemide 20 mg tablet 20 mg PO DAILY Qty: 90 4RF carvedilol 6.25 mg tablet 6.25 mg PO BID Qty: 180 3RF amlodipine 10 mg tablet 10 mg PO DAILY Qty: 90 3RF atorvastatin 80 mg tablet 80 mg PO QHS Qty: 90 3RF Primary Care Provider: Torin Noyola Referrals: Torin Noyola MD [Primary Care Provider] - Disposition Disposition: Acute Care Hospital [facility]
--- NOTE | 2023-03-25 15:23 | CT_ITS ---
INDICATION: Neuro deficit, acute, stroke suspected EXAMINATION: CT BRAIN WITHOUT CONTRAST, CTA HEAD, AND CTA NECK TECHNIQUE: Noncontrast axial images were obtained of the brain. Subsequently, routine carotid CT angiogram protocol was performed without and with IV contrast. In addition, images were obtained of the [place]. NASCET criteria using the distal ICAs for comparison were used for evaluation of stenoses. 3D reconstructions were reviewed. A radiation dose optimization technique was used for this scan. IV Contrast dosage and agent: COMPARISON: FINDINGS: --CTA NECK: AORTIC ARCH AND BRANCHES: Normal anatomy, patent. RIGHT CCA: No occlusion, significant stenosis or dissection. RIGHT CAROTID BULB: Atherosclerotic calcifications with less than 50% luminal narrowing. RIGHT ICA: No occlusion, significant stenosis or dissection. LEFT CCA: No occlusion, significant stenosis or dissection. LEFT CAROTID BULB: Atherosclerotic calcifications with less than 50% luminal narrowing. LEFT ICA: No occlusion, significant stenosis or dissection. RIGHT VERTEBRAL ARTERY: No occlusion, significant stenosis or dissection. LEFT VERTEBRAL ARTERY: No occlusion, significant stenosis or dissection. NECK SOFT TISSUES: Unremarkable. --CTA HEAD: --Anterior circulation: ICAs: No significant stenosis at the intracranial/visualized segments. ACAs: No significant stenosis at the visualized segments. ACOM: Present. MCAs: No significant stenosis at the visualized segments. --Posterior circulation: PCOMs: Patent on the right. Nonvisualization on the left. cigarette stamper: No significant stenosis at the visualized segments. BASILAR ARTERY: No significant stenosis. VERTEBRAL ARTERIES: No significant stenosis at the intradural/visualized segments. No evidence of intracranial aneurysm or vascular malformation. Paranasal sinus mucosal thickening. CT/CTA Head AND Neck W/ Contrast IMPRESSION: No hemodynamically significant stenosis. Electronically Signed: Will Patel DO at 17:12 EST ,
[2023-03-25] MEDS: 0.9% Normal Saline (1000mL) 1,000 ML 100 ML IV (15:28)
[2023-03-25 15:42] LABS: Absolute Lymphocyte Count 1.05 X10^3/uL (0.83-4.51); Absolute Neutrophil Count 5.9 X10^3/uL (2.0-7.7); Basophil# 0.06 X10^3/uL; Basophil% 0.7 % (0-1); Eosinophil# 0.26 X10^3/uL; Eosinophils% 3.2 % (0-5); Hematocrit 43.5 % (40-54); Hemoglobin 13.9 g/dL (13.0-16.5); Lymphocyte # 1.05 X10^3/ul (0.83-4.51); Lymphocyte % 13.1 % (19-41); Mean Corpuscular Hgb 30.9 pg (27.0-32.0); Mean Corpuscular Volume 96.7 fL (80-94); Mean Platelet Vol. 10.7 fl (6.2-12.0); Monocyte% 8.7 % (0-10); NRBC Flagged by Analyzer 0 % (0-5); Neutrophil # 5.94 X10^3/uL (2.7-7.7); Neutrophil % 73.9 % (47-70); Platelet Count 242 K/mm3 (150-450); RBC Distribution Width CV 13.3 % (11.6-14.6)
[2023-03-25 15:46] LABS: Partial Thromboplast Time 34.5 Seconds (24.1-36.2)
[2023-03-25 15:50] LABS: Bedside Glucose 95 mg/dL (74-106)
[2023-03-25 15:51] LABS: International Normalized Ratio 1.3; Prothrombin Time (Protime)PT. 16.6 SECONDS (11.7-14.9)
[2023-03-25 15:55] LABS: Anion Gap 1 (5-15); BUN 23 mg/dL (7-18); BUN/Creat Ratio 15.2 RATIO (10-20); Calcium,Total 8.9 mg/dL (8.5-10.1); Chloride 107 mmol/L (98-107); Creatinine, Serum 1.51 mg/dL (0.70-1.30); EST Glomerular Filtration Rate 47 mL/min (>60); Est Glom Filt Rate - Afr Amer 57 mL/min (>60); Estimated Creatinine Clearance 33.97 ml/min; Glucose 101 mg/dL (74-106); Potassium 3.8 mmol/L (3.5-5.1); Sodium Level 138 mmol/L (136-145); Troponin-I HS 16 pg/mL (3.0-78.0)
[2023-03-25 16:12] LABS: Bacteria 0 SEEN /hpf (None Seen); Mucous, Urine 0 SEEN /hpf (<or=2+); Squamous Epithelial Cells - UA 0 SEEN /hpf (0-5); White Blood Cells 0 SEEN /hpf (0-5)
--- NOTE | 2023-03-25 16:20 | RAD_ITS ---
INDICATION: Neuro deficit, acute, stroke suspected EXAMINATION/TECHNIQUE: X-RAY - XR Chest 1 View COMPARISON: January 05, 2023 FINDINGS: LINES/DEVICES: None. LUNGS: Left basilar effusion and consolidation. No pneumothorax. MEDIASTINUM AND CARDIOVASCULAR STRUCTURES: Cardiac silhouette not enlarged. Mild central pulmonary vascular prominence. Central airways and mediastinal contour are unremarkable. BONES AND SOFT TISSUES: There is a right shoulder prosthesis. RAD/Chest 1 View IMPRESSION: Left basilar effusion and consolidation. Electronically Signed: Will Patel DO at 16:48 EST ,
[2023-03-25 16:23] LABS: Color, Urine Yellow (Yellow); Glucose, Dipstick Normal (Normal); Ketone-Dipstick Negative (Negative); Leukocyte Esterase-Dipstick Negative /ul (Negative); Nitrite-Dipstick Negative (Negative); Occult Blood-Urine 25 /ul (Negative); Protein-Dipstick Negative (Negative); Urine Bilirubin Dipstick Negative (Negative); Urine Clarity Clear (Clear); Urine Urobilinogen Normal (Normal)
[2023-03-25 16:31] LABS: Red Blood Cells-Urine 0-5 SEEN /hpf (0-5)
--- NOTE | 2023-03-25 18:03 | HP.PCM.HOS_ITS ---
HPI - General General Date of Admission: 03/25/23 Date of Service: 03/25/23 Chief Complaint: Changes in vision HPI Narrative ALEXIA MERIDA, is a 87-year-old male history of atrial fibrillation, COPD, CVA, CAD with history of CABG, hypertension, OTILIA, CHF with AICD who presented to [facility] 03/25/2023 as yesterday at 10 AM he developed a cloud in his right peripheral visual field. He went to the eye doctor today and was sent to ED for stroke work-up. Does have history of CVA. Work-up in the ED unrevealing for acute pathology. Hospitalist contacted for admission for stroke work-up. Patient evaluated in the ED and reports that yesterday he was little bit disoriented in the afternoon and then felt better but in the evening he suddenly had a grayish blurry peripheral vision on the right side that was present until 1 PM today. He went to the eye doctor as described and he was sent to the ED. He had no further episodes of confusion, had no other changes in vision and symptoms have completely resolved, no headache, no numbness or tingling anywhere. Patient has chronic shortness of breath but has no other ac zak complaints. [facility] Medical History Atherosclerotic heart disease of [place] coronary artery without angina pectoris Atrial fibrillation CVA (cerebral vascular accident) Home Medications lisinopril 40 mg tablet 40 mg PO DAILY BLOOD PRESSURE 09/15/13 [History Last Taken 03/25/23] zolpidem 5 mg tablet 5 mg PO QHS PRN INSOMNIA 09/15/13 [History Last Taken Unknown] ipratropium 20 mcg-albuterol 100 mcg/actuation mist for inhalation 1 puff in halation 4X/DAY PRN COPD 09/20/19 [History Last Taken Unknown] aspirin 81 mg chewable tablet 81 mg PO DAILY HEART HEALTH 10/31/19 [History Last Taken 03/25/23] buspirone 5 mg tablet 5 mg PO BID PRN ANXIETY 10/25/21 [History Last Taken Unknown] apixaban 5 mg tablet 5 mg PO BID BLOOD THINNER #60 tabs 05/06/22 [Rx Last Taken 03/25/23] furosemide 20 mg tablet 20 mg PO DAILY EDEMA #90 tabs 06/02/22 [Rx Last Taken 03/25/23] carvedilol 6.25 mg tablet 6.25 mg PO BID HEART #180 tabs 06/09/22 [Rx Last T aken 03/25/23] amlodipine 10 mg tablet 10 mg PO DAILY BLOOD PRESSURE #90 tabs 12/11/22 [Rx Last Taken 03/25/23] atorvastatin 80 mg tablet 80 mg PO QHS CHOLESTEROL #90 tabs 03/02/23 [Rx Last Taken 03/24/23] dorzolamide 2 % eye drops 1 drp ophthalmic (eye) TID GLAUCOMA 03/25/23 [History Last Taken 03/24/23] latanoprost 0.005 % eye drops 1 drp ophthalmic (eye) QHS GLAUCOOMA 03/25/23 [History Last Taken 03/24/23] Allergy/AdvReac Type Severity Reaction Status Date / Time Penicillins [PCN] Allergy Rash Verified 03/25/23 15:03 Sulfa (Sulfonamide Allergy Rash Verified 03/25/23 15:03 Antibiotics) Family History Mother Myocardial infarction Sister Tuberculosis Father Peripheral artery disease Surgical History H/O coronary angioplasty History of cardiac catheterization History of cholecystectomy History of left inguinal hernia repair History of total left knee replacement S/P CABG (coronary artery bypass graft) S/P implantation of automatic cardioverter/defibrillator (AICD) Social History Smoking Status: Former smoker ROS ROS Narrative General: Denies fever/chills HENT: Denies headache, denies stuffy nose, denies sore throat EYES: Sided peripheral vision radiation blurry resolved Resp: Denies cough, chronic shortness of breath Cardiac: Denies chest pain GI: Denies abdominal pain, denies changes in bowel, denies nausea/vomiting : Denies changes in urination Extremity: Denies swelling MSK: Denies weakness Neuro: Denies any numbness/tingling Heme: Bruises easily Skin: Denies rashes Psychiatric: No complaints voiced Vital Signs Vital Signs Vital Signs: 03/25/23 15:02 03/25/23 15:01 03/25/23 15:22 Temperature 97.2 F L Temperature Source Temporal Pulse Rate 80 68 Respiratory Rate 14 16 Blood Pressure 141/92 H 131/85 H Blood Pressure Mean 108 100 Pulse Ox 97 98 Oxygen Delivery Method Room Air Room Air Room Air 03/25/23 15:22 03/25/23 15:37 03/25/23 15:52 Temperature Temperature Source Pulse Rate 70 71 72 Respiratory Rate 16 12 12 Blood Pressure 147/79 H 122/83 H 145/90 H Blood Pressure Mean 101 96 108 Pulse Ox 99 98 95 Oxygen Delivery Method Room Air Room Air Room Air 03/25/23 16:00 03/25/23 16:15 03/25/23 16:30 Temperature Temperature Source Pulse Rate 62 66 70 Respiratory Rate 16 16 14 Blood Pressure 135/78 H 142/88 H 135/81 H Blood Pressure Mean 97 106 99 Pulse Ox 99 96 99 Oxygen Delivery Method Room Air Room Air Room Air 03/25/23 16:08 03/25/23 16:10 03/25/23 16:15 Temperature Temperature Source Pulse Rate 72 75 71 Respiratory Rate 24 H 25 H 24 H Blood Pressure 142/88 H 135/81 H Blood Pressure Mean 105 98 Pulse Ox 99 98 Oxygen Delivery Method 03/25/23 16:29 03/25/23 16:30 03/25/23 16:40 Temperature Temperature Source Pulse Rate 74 78 75 Respiratory Rate 20 H 22 H 21 H Blood Pressure 131/84 H Blood Pressure Mean 97 Pulse Ox 96 96 96 Oxygen Delivery Method 03/25/23 16:45 03/25/23 16:50 03/25/23 17:00 Temperature Temperature Source Pulse Rate 74 73 70 Respiratory Rate 17 22 H 20 H Blood Pressure 117/86 H 128/70 H Blood Pressure Mean 98 87 Pulse Ox 97 98 98 Oxygen Delivery Method 03/25/23 17:10 03/25/23 17:15 Temperature Temperature Source Pulse Rate 74 Respiratory Rate 18 Blood Pressure 145/70 H 151/92 H Blood Pressure Mean 95 111 Pulse Ox 99 Oxygen Delivery Method Room Air Weight Weight: 93.468 kg Body Mass Index (BMI) 31.3 Physical Exam Narrative General: Alert, oriented, no apparent distress HEENT: Atraumatic, normocephalic Eyes: Anicteric, normal conjunctiva, extraocular movements intact, pupils equal Neck: Supple Respiratory: Clear to auscultation bilaterally, normal respiratory effort Cardiovascular: Regular rate GI: Soft, nontender, nondistended Extremities: No edema Musculoskeletal: Strength 5 out of 5 in right upper extremity, 5 out of 5 left upper extremity, 5 out of 5 right lower extremity, 5 out of 5 left lower extremity Neuro: No overt focal neurological deficits, cranial nerves II through XII intact, [id number] without significant difficulty bilaterally Skin: Some scattered chronic skin changes on arms Psych: Cooperative Results Lab / Micro Data 03/25/23 15:15 03/25/23 15:15 Labs: Laboratory Results - last 24 hr 03/25/23 15:15: WBC 8.0, RBC 4.50 L, Hgb 13.9, Hct 43.5, MCV 96.7 H, MCH 30.9, MCHC 32.0, RDW Std Deviation 48.0 H, RDW Coeff of [place] 13.3, Plt Count 242, MPV 10.7, Immature Gran % (Auto) 0.400, Neut % (Auto) 73.9 H, Lymph % (Auto) 13.1 L, Glenn % (Auto) 8.7, Eos % (Auto) 3.2, Baso % (Auto) 0.7, Absolute Neuts (auto) 5.9, Absolute Lymphs (auto) 1.05, Nucleated RBC % 0, PT 16.6 H, INR 1.3, APTT 34.5, Sodium 138, Potassium 3.8, Chloride 107, Carbon Dioxide 30.0, Anion Gap 1 L, BUN 23 H, Creatinine 1.51 H, Estim Creat Clear Calc 33.97, Est GFR (MDRD) Af Amer 57 L, Est GFR (MDRD) Non-Af 47 L, BUN/Creatinine Ratio 15.2, Glucose 101, Calcium 8.9, Troponin I High Sens 16 03/25/23 15:31: POC Glucose 95 03/25/23 16:05: Urine Color Yellow, Urine Clarity Clear, Urine pH 6.0, Ur Specific [place] 1.020, Urine Protein Negative, Urine Glucose (UA) Normal, Urine Ketones Negative, Urine Occult Blood 25 H, Urine Nitrite Negative, Urine Bilirubin Negative, Urine Urobilinogen Normal, Ur Leukocyte Esterase Negative, Urine RBC 0-5 SEEN, Urine WBC 0 SEEN, Ur Squamous Epith Cells 0 SEEN, Urine Bacteria 0 SEEN, Urine Mucus 0 SEEN Imagaing Radiology Impression Head/Neck CTA 03/25/23 15:23 IMPRESSION: No hemodynamically significant stenosis. Electronically Signed: Will Patel DO at 17:12 EST , Chest X-Ray 03/25/23 16:20 IMPRESSION: Left basilar effusion and consolidation. Electronically Signed: Will Patel DO at 16:48 EST , Assessment & Plan Assessment/Plan (1) Visual changes: (2) Systolic congestive heart failure: QUALIFIERS: Heart failure chronicity: chronic Qualified Code(s): I50.22 - Chronic systolic (congestive) heart failure (3) S/P implantation of automatic cardioverter/defibrillator (AICD): (4) Hypertension: QUALIFIERS: Hypertension type: unspecified secondary hypertension Qualified Code(s): I15.9 - Secondary hypertension, unspecified (5) CVA (cerebral vascular accident): (6) Atherosclerotic heart disease of [place] coronary artery without angina pectoris: QUALIFIERS: [place] vs. transplanted heart: [place] heart Qualified Code(s): I25.10 - Atherosclerotic heart disease of [place] coronary artery without angina pectoris (7) COPD (chronic obstructive pulmonary disease): (8) Coronary artery disease: (9) History of atrial fibrillation: (10) History of coronary artery bypass graft: PLAN: Plan #Right peripheral vision deficit, resolved -Admit to tele -CT head w/ chronic changes in ED -CTA head and neck with no hemodynamically significant stenosis -MRI, previously presumed he could not have MRI due to his AICD, reports the batteries have been x3 years, unclear if this will change trajectory or if his particular make and model are compatible or not. Reports his has his wallet but will be back later and should be able to provide the information. If unable to get MRI can likely repeat CT scan tomorrow -NIH q4hr -asa, statin, will continue Eliquis -Echo w/ bubble study, previously bubble study negative, limited echo to assess for any clots/vegetations -PT/OT/Speech eval -Hold BP medications to allow for permissive hypertension for 24 hours unless SBP greater than 220 or DBP greater than 120 or until stroke is ruled out #Chronic heart failure with reduced ejection fraction -Last echocardiogram 09/2019 with EF of 35% and unable to assess diastolic dysfu nction -Patient does have AICD placement but the battery has reportedly been for 3 years -Continue beta-miguel and Lasix -Daily weights, I's and O's -We will need to follow-up with his pearl peller outpatient for further decisions on his AICD given batteries are #History of coronary artery disease -With history of CABG -Continue aspirin, beta-miguel, statin #Hypertension -We will hold home medications aside from decreasing very small dose of beta- miguel to avoid patient going into A-fib with RVR #CKDIIIa -appears to be at baseline #Chronic A-fib -Continue beta-miguel and apixaban #COPD -Continue inhalers #DVT ppx: Glenda Roberson MD Time spent in the patient's overall evaluation,decision-making process, review of diagnostic data, adjustment of management, discussion with other providers, nursing nursing and ancillary staff involved in patient's care documentation, 55 Minutes Charges/Coding Visit Charges Inpatient E&M: 80510 Init Hosp L2
--- NOTE | 2023-03-25 18:05 | NURSING ---
PCU STOVALL TIA, AFIB, CONFUSION
[2023-03-25] MEDS: Carvedilol 3.125 MG TABLET PO (22:24)
[2023-03-25] MEDS: APIXABAN 5 MG TABLET PO (22:24)
[2023-03-25] MEDS: Atorvastatin Calcium 80 MG Tablet PO (22:24)
[2023-03-26 00:17] VITALS: BMI 30.4
[2023-03-26 02:05] VITALS: BP 126/77; PULSE 65; RESP 18; TEMP 36.4; O2SAT 98
[2023-03-26 05:56] VITALS: BMI 30.8
[2023-03-26 06:00] VITALS: BP 125/82; PULSE 60; RESP 18; TEMP 36.8; O2SAT 98
[2023-03-26 07:01] LABS: Absolute Lymphocyte Count 0.78 X10^3/uL (0.83-4.51); Absolute Neutrophil Count 4.6 X10^3/uL (2.0-7.7); Basophil# 0.05 X10^3/uL; Basophil% 0.8 % (0-1); Eosinophil# 0.23 X10^3/uL; Eosinophils% 3.7 % (0-5); Hematocrit 36.3 % (40-54); Hemoglobin 11.8 g/dL (13.0-16.5); Lymphocyte # 0.78 X10^3/ul (0.83-4.51); Lymphocyte % 12.5 % (19-41); Mean Corp Hgb Conc 32.5 g/dL (32-36); Mean Corpuscular Hgb 31.1 pg (27.0-32.0); Mean Corpuscular Volume 95.5 fL (80-94); Monocyte# 0.59 X10^3/uL; Monocyte% 9.5 % (0-10); NRBC Flagged by Analyzer 0 % (0-5); Neutrophil # 4.55 X10^3/uL (2.7-7.7); Neutrophil % 73.2 % (47-70); Platelet Count 194 K/mm3 (150-450); RBC Distribution Width CV 13.3 % (11.6-14.6); RBC Distribution Width SD 46.9 fl (35.1-43.9); White Blood Count 6.2 K/mm3 (4.4-11.0)
[2023-03-26 07:38] VITALS: O2SAT 97
[2023-03-26 07:59] LABS: Anion Gap 4 (5-15); BUN 19 mg/dL (7-18); BUN/Creat Ratio 16.4 RATIO (10-20); Calcium,Total 8.7 mg/dL (8.5-10.1); Chloride 110 mmol/L (98-107); Cholesterol 114 mg/dL (200); Creatinine, Serum 1.16 mg/dL (0.70-1.30); EST Glomerular Filtration Rate 63 mL/min (>60); Est Glom Filt Rate - Afr Amer 77 mL/min (>60); Estimated Creatinine Clearance 44.22 ml/min; Glucose 113 mg/dL (74-106); High Density Lipoprotein 47 mg/dL; Potassium 3.4 mmol/L (3.5-5.1); Sodium Level 140 mmol/L (136-145); Triglycerides 117 mg/dL; Very Low Density Lipoprotein 23 mg/dL (5-40)
--- NOTE | 2023-03-26 08:14 | PN.HOSP_ITS ---
Reason for Visit Reason for Visit: Diagnoses Unspecified visual disturbance (03/25/23) Secondary hypertension, unspecified (03/25/23) Atherosclerotic heart disease of [place] coronary artery without angina pectoris (03/25/23) Chronic systolic (congestive) heart failure (03/25/23) Cerebral infarction, unspecified (03/25/23) Chronic obstructive pulmonary disease, unspecified (03/25/23) Personal history of other diseases of the circulatory system (03/25/23) Presence of aortocoronary bypass graft (03/25/23) Presence of automatic (implantable) cardiac defibrillator (03/25/23) Objective Data Objective Data Vital Signs: Vital Signs Temp Pulse Resp BP Pulse Ox O2 Del Method 98.2 F 60 18 125/82 H 98 Room Air 03/26/23 06:00 03/26/23 06:00 03/26/23 06:00 03/26/23 06:00 03/26/23 06:00 03/26/23 07:40 Oxygen Delivery Method Room Air Weight: 202 lb 13.204 oz Body Mass Index (BMI) 30.8 Intake & Output: Intake and Output for Last 24 Hours 03/24/23 03/25/23 03/26/23 23:59 23:59 23:59 Intake Total 360 / 360 1120 / 1120 Balance 360 / 360 1120 / 1120 Lab / Micro Data 03/26/23 06:50 03/26/23 06:50 Labs: Laboratory Results - last 24 hr 03/25/23 15:15: WBC 8.0, RBC 4.50 L, Hgb 13.9, Hct 43.5, MCV 96.7 H, MCH 30.9, MCHC 32.0, RDW Std Deviation 48.0 H, RDW Coeff of [place] 13.3, Plt Count 242, MPV 10.7, Immature Gran % (Auto) 0.400, Neut % (Auto) 73.9 H, Lymph % (Auto) 13.1 L, [place] % (Auto) 8.7, Eos % (Auto) 3.2, Baso % (Auto) 0.7, Absolute Neuts (auto) 5.9, Absolute Lymphs (auto) 1.05, Nucleated RBC % 0, PT 16.6 H, INR 1.3, APTT 34.5, Sodium 138, Potassium 3.8, Chloride 107, Carbon Dioxide 30.0, Anion Gap 1 L, BUN 23 H, Creatinine 1.51 H, Estim Creat Clear Calc 33.97, Est GFR (MDRD) Af Amer 57 L, Est GFR (MDRD) Non-Af 47 L, BUN/Creatinine Ratio 15.2, Glucose 101, Calcium 8.9, Troponin I High Sens 16 03/25/23 15:31: POC Glucose 95 03/25/23 16:05: Urine Color Yellow, Urine Clarity Clear, Urine pH 6.0, Ur Specific [place] 1.020, Urine Protein Negative, Urine Glucose (UA) Normal, Urine Ketones Negative, Urine Occult Blood 25 H, Urine Nitrite Negative, Urine Bilirubin Negative, Urine Urobilinogen Normal, Ur Leukocyte Esterase Negative, Urine RBC 0-5 SEEN, Urine WBC 0 SEEN, Ur Squamous Epith Cells 0 SEEN, Urine Bacteria 0 SEEN, Urine Mucus 0 SEEN 03/26/23 06:50: WBC 6.2, RBC 3.80 L, Hgb 11.8 L, Hct 36.3 L, MCV 95.5 H, MCH 31.1, MCHC 32.5, RDW Std Deviation 46.9 H, RDW Coeff of [place] 13.3, Plt Count 194, MPV 10.0, Immature Gran % (Auto) 0.300, Neut % (Auto) 73.2 H, Lymph % (Auto) 12.5 L, [place] % (Auto) 9.5, Eos % (Auto) 3.7, Baso % (Auto) 0.8, Absolute Neuts (auto) 4.6, Absolute Lymphs (auto) 0.78 L, Nucleated RBC % 0, Sodium 140, Potassium 3.4 L, Chloride 110 H, Carbon Dioxide 26.0, Anion Gap 4 L, BUN 19 H, Creatinine 1.16, Estim Creat Clear Calc 44.22, Est GFR (MDRD) Af Amer 77, Est GFR (MDRD) Non-Af 63, BUN/Creatinine Ratio 16.4, Glucose 113 H, Calcium 8.7, Triglycerides 117, Cholesterol 114, LDL Cholesterol 44, VLDL Cholesterol 23, HDL Cholesterol 47 Radiography Diagnostic Testing: Radiology Impression Head/Neck CTA 03/25/23 15:23 IMPRESSION: No hemodynamically significant stenosis. Electronically Signed: Will Patel DO at 17:12 EST , Chest X-Ray 03/25/23 16:20 IMPRESSION: Left basilar effusion and consolidation. Electronically Signed: Will DO Jorge at 16:48 EST , Physical Exam Narrative General: Alert, oriented, no apparent distress HEENT: Atraumatic, normocephalic Eyes: Anicteric, normal conjunctiva, extraocular movements intact, pupils equal Neck: Supple Respiratory: Clear to auscultation bilaterally, normal respiratory effort Cardiovascular: Regular rate GI: Soft, nontender, nondistended Extremities: No edema Musculoskeletal: Strength 5 out of 5 in right upper extremity, 5 out of 5 left upper extremity, 5 out of 5 right lower extremity, 5 out of 5 left lower extremity Neuro: No overt focal neurological deficits, cranial nerves II through XII intact, [id number] without significant difficulty bilaterally Skin: Some scattered chronic skin changes on arms Psych: Cooperative Assessment & Plan Assessment/Plan (1) Visual changes: (2) Systolic congestive heart failure: QUALIFIERS: Heart failure chronicity: chronic Qualified Code(s): I50.22 - Chronic systolic (congestive) heart failure (3) CVA (cerebral vascular accident): (4) Atherosclerotic heart disease of [place] coronary artery without angina pectoris: QUALIFIERS: [place] vs. transplanted heart: [place] heart Qualified Code(s): I25.10 - Atherosclerotic heart disease of [place] coronary artery without angina pectoris PLAN: Plan 87-year-old gentleman was sent to ED from sink [facility] office for right-sided peripheral vision loss in right eye for concern for stroke. Patient had an episode of confusion a day before admission around 10 AM.Patient is stated while playing cards around 6 PM on 02/21/2023. Can only see half of the card. Symptoms resolved around 1 PM on day of admission. Prior to coming to ED his vision was back to normal. No difficulty in his speech, headache or focal weakness or sensory abnormality. Patient on Eliquis for history of chronic A- fib. No fall or injuries. No acute recent illness. #Right peripheral vision deficit, resolved -Admit to tele -CT head w/ chronic changes in ED -CTA head and neck with no hemodynamically significant stenosis -MRI, previously presumed he could not have MRI due to his AICD, reports the batteries have been x3 years, unclear if this will change trajectory or if his particular make and model are compatible or not. Reports his has his wallet but will be back later and should be able to provide the information. If unable to get MRI can likely repeat CT scan tomorrow -NIH q4hr -asa, statin, will continue Eliquis -Echo w/ bubble study, previously bubble study negative, limited echo to assess for any clots/vegetations -PT/OT/Speech eval -Hold BP medications to allow for permissive hypertension for 24 hours unless SBP greater than 220 or DBP greater than 120 or until stroke is ruled out #Chronic heart failure with reduced ejection fraction -Last echocardiogram 09/2019 with EF of 35% and unable to assess diastolic dysfunction -Patient does have AICD placement but the battery has reportedly been for 3 years -Continue beta-miguel and Lasix -Daily weights, I's and O's -We will need to follow-up with his resident athletic trainer outpatient for further de cisions on his AICD given batteries are #History of coronary artery disease -With history of CABG -Continue aspirin, beta-miguel, statin #Hypertension -We will hold home medications aside from decreasing very small dose of beta- miguel to avoid patient going into A-fib with RVR #CKDIIIa -appears to be at baseline #Chronic A-fib -Continue beta-miguel and apixaban #COPD -Continue inhalers #DVT ppx: Glenda Roberson MD Time spent in the patient's overall evaluation,decision-making process, review of diagnostic data, adjustment of management, discussion with other providers, nursing nursing and ancillary staff involved in patient's care documentation, 55 Minutes
[2023-03-26 09:45] VITALS: BP 139/82; PULSE 72; RESP 18; TEMP 36.8; O2SAT 97
[2023-03-26] MEDS: Aspirin 81 MG TAB.CHEW PO (09:50)
[2023-03-26] MEDS: Furosemide 20 MG Tablet PO (09:50)
[2023-03-26] MEDS: Carvedilol 3.125 MG TABLET PO (09:50)
[2023-03-26] MEDS: APIXABAN 5 MG TABLET PO (09:50)
--- NOTE | 2023-03-26 10:10 | DCINST_ITS ---
Discharge Instructions Diet Discharge Diet: Low fat / Low cholesterol and 2000 mg Sodium Diet Activity Discharge Activity: Return to Normal Activity Weight Bearing Status: Weight bearing as tolerated Dressing / Incision Call your doctor if you observe: Fever of 101 or Higher, Coldness, Increased Pain, Numbness or Tingling, Change in Color, Inability to urinate, Inability to have a bowel movement, Shortness of breath, Dizziness, Fainting spells, Swelling in the ankles, Chest pain, Prolonged hiccupping, Increased palpitations (irregular heartbeat) and Calf discomfort Follow Up Care When: IN 2 WEEKS Test Results: Test results from this visit will be discussed in further detail at your follow- up appointment, if applicable. Discharge Plan Admission Admit Date/Time: 03/25/23 18:03 Primary Reason for Your Visit: Most likely TIA Attending Provider: Sarkis Adames Primary Care Provider: Torin Noyola Consulting Providers: Karlie Roberson Instructions Additional Instructions / Restrictions: Outpatient 2D echo with bubble contrast study to rule out PFO/ASD. Discharge Orders/Prescriptions Prescriptions: Continued buspirone 5 mg tablet 5 mg PO BID PRN (Reason: ANXIETY ) zolpidem 5 MG tablet 5 mg PO QHS PRN (Reason: INSOMNIA ) lisinopril 40 MG tablet 40 mg PO DAILY ipratropium-albuterol 1 PUFF inhaler 1 puff inhalation 4X/DAY PRN (Reason: COPD) dorzolamide 2 % drops 1 drp ophthalmic (eye) TID latanoprost 0.005 % drops 1 drp ophthalmic (eye) QHS aspirin 81 MG tablet,chewable 81 mg PO DAILY 30 Days Qty: 30 2RF apixaban 5 mg tablet 5 mg PO BID Qty: 60 11RF furosemide 20 mg tablet 20 mg PO DAILY Qty: 90 4RF carvedilol 6.25 mg tablet 6.25 mg PO BID Qty: 180 3RF amlodipine 10 mg tablet 10 mg PO DAILY Qty: 90 3RF atorvastatin 80 mg tablet 80 mg PO QHS Qty: 90 3RF Referrals / Follow Up: Jules Low MD [Non-Staff -Ordering Privileges] - Within 2 Weeks (FOR TIA) Torin Noyola MD [Primary Care Provider] - Within 1 Week Disposition Disposition (needs filled in before D/C Order can be placed): Home, Self Care
--- NOTE | 2023-03-26 12:15 | DS.PCM_ITS ---
Providers Date of Admission: 03/25/23 Date of Discharge: 03/26/23 Primary Care Physician: Dr. Torin Noyola MD Reason For Visit: CVA R/O Diagnosis Discharge Diagnosis (1) Visual changes: Status: Acute Code(s): H53.9 - Unspecified visual disturbance (2) Systolic congestive heart failure: Status: Chronic Code(s): I50.20 - Unspecified systolic (congestive) heart failure Qualifiers: Heart failure chronicity: chronic Qualified Code(s): I50.22 - Chronic systolic (congestive) heart failure (3) CVA (cerebral vascular accident): Status: Acute Code(s): I63.9 - Cerebral infarction, unspecified (4) Atherosclerotic heart disease of [place] coronary artery without angina pectoris: Status: Chronic Code(s): I25.10 - Atherosclerotic heart disease of [place] coronary artery without angina pectoris Qualifiers: [place] vs. 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 Patient had an epi sode of confusion a day before admission around 10 AM.Patient is stated while playing cards around 6 PM on 02/21/2023. Can only see half of the card. Symptoms resolved around 1 PM on day of admission. Prior to coming to ED his vision was back to normal. No difficulty in his speech, headache or focal weakness or sensory abnormality. Patient on Eliquis for history of chronic A- fib. No fall or injuries. No acute recent illness. #Right peripheral vision deficit, resolved: Patient was admitted in PCU. CT head without contrast shows chronic changes in ED. CT head and neck shows no hemodynamically significant stenosis. Patient has contraindication of MRI with AICD/defibrillator which he states his dad for 3 years and plan for explantation. Patient NIH is 0. Patient on baby aspirin and Eliquis and high intensity statin at home. 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 Patient was given the option to stay overnight for 2D echo but he says he would rather do it as an outpatient. 2D echo with bubble contrast study to rule out PFO/ASD. Patient had evaluation as per stroke protocol. Patient is normotensive. 11/23: I told the patient and his that patient will have repeat CT at around 3 PM and will review and then discharge and 2D echo with bubble study as an outpatient which they agreed. By mistake the nurse discharge the patient without CT head. Patient denies any stroke scale 0 as he had recovered his vision yesterday even before admission. Outpatient neuro follow-up with Dr. Low. Patient already on baby aspirin and Eliquis full dose for A-fib and high intensity atorvastatin. 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 #History of coronary artery disease -With history of CABG -Continue aspirin, beta-miguel, statin #Hypertension -On amlodipine #CKDIIIa -appears to be at baseline #Chronic A-fib -Continue beta-miguel and apixaban. Heart rate is controlled. Patient also has defibrillator and as per patient there was a plan for explantation as it is . #COPD -Continue inhalers #DVT ppx: Eliquis Discharge medication reconciliation done. Discharge follow-up instructions completed. Discharge process discussed with the patient and all questions were answered to patient's satisfaction. Follow with PCP in 1 to 2 weeks Total time spent, exact 35 minutes on discharge meds reconciliation, examination, coordination of care with nurses and ancillary staff, review of imaging and blood test and discussion with the patient on follow-up instructions. Medications at Discharge Home Medications lisinopril 40 mg tablet 40 mg PO DAILY BLOOD PRESSURE 09/15/13 zolpidem 5 mg tablet 5 mg PO QHS PRN INSOMNIA 09/15/13 ipratropium 20 mcg-albuterol 100 mcg/actuation mist for inhalation 1 puff inhalation 4X/DAY PRN COPD 09/20/19 buspirone 5 mg tablet 5 mg PO BID PRN ANXIETY 10/25/21 apixaban 5 mg tablet 5 mg PO BID BLOOD THINNER #60 tabs 05/06/22 furosemide 20 mg tablet 20 mg PO DAILY EDEMA #90 tabs 06/02/22 carvedilol 6.25 mg tablet 6.25 mg PO BID HEART #180 tabs 06/09/22 amlodipine 10 mg tablet 10 mg PO DAILY BLOOD PRESSURE #90 tabs 12/11/22 atorvastatin 80 mg tablet 80 mg PO QHS CHOLESTEROL #90 tabs 03/02/23 dorzolamide 2 % eye drops 1 drp ophthalmic (eye) TID GLAUCOMA 03/25/23 latanoprost 0.005 % eye drops 1 drp ophthalmic (eye) QHS GLAUCOOMA 03/25/23 aspirin 81 mg chewable tablet 81 mg PO DAILY HEART HEALTH 30 days #30 tabs 03/26/23 Physical Exam Narrative Seen and examined. Patient can see all around. Patient had right-sided peripheral visual field deficit that lasted for about 6 hours yesterday. No other stroke symptoms like peripheral weakness, numbness tingling, dysphagia or dysarthria, language deficit or aphasia. No disequilibrium. Physical exam General: Alert, Oriented x3, Cooperative HEENT: Atraumatic, PERRLA, EOMI, Normocephalic Oral: No Gingival or Mucosal Lesions/ Ulcerations Neck: Supple, No JVD, Negative Carotid Bruits Lungs: Air entry diminished in bilateral lung bases. No crepitation/rhonchi Cardiovascular: Sinus rhythm, Normal S1, Normal S2, systolic murmur over right second ICS. Left subclavicular AICD Abdomen: Bowel Sounds Present, Soft, Non Tender, Non-Distended : No renal angle tenderness. No suprapubic tenderness. Extremities: No edema, Capillary Refill Less than 3 Seconds Skin: No rashes, No breakdown Musculoskeletal: No Tenderness to Palpation of Joints or Extremities. ROM full and intact. Muscle strength 5/5 at major joints. Neurological: Cranial nerves II-XII grossly intact, DTR 2+/4. No acute focal neurological deficit. Psych/Mental Status: Normal Affect, Appropriate. Weight / BMI Weight Weight: 202 lb 13.204 oz Body Mass Index (BMI) 30.8 ABG / Lab / Microbiology Data 03/26/23 06:50 03/26/23 06:50 Laboratory: Laboratory Results - last 24 hr 03/25/23 15:15: WBC 8.0, RBC 4.50 L, Hgb 13.9, Hct 43.5, MCV 96.7 H, MCH 30.9, MCHC 32.0, RDW Std Deviation 48.0 H, RDW Coeff of [place] 13.3, Plt Count 242, MPV 10.7, Immature Gran % (Auto) 0.400, Neut % (Auto) 73.9 H, Lymph % (Auto) 13.1 L, [place] % (Auto) 8.7, Eos % (Auto) 3.2, Baso % (Auto) 0.7, Absolute Neuts (auto) 5.9, Absolute Lymphs (auto) 1.05, Nucleated RBC % 0, PT 16.6 H, INR 1.3, APTT 34.5, Sodium 138, Potassium 3.8, Chloride 107, Carbon Dioxide 30.0, Anion Gap 1 L, BUN 23 H, Creatinine 1.51 H, Estim Creat Clear Calc 33.97, Est GFR (MDRD) Af Amer 57 L, Est GFR (MDRD) Non-Af 47 L, BUN/Creatinine Ratio 15.2, Glucose 101, Calcium 8.9, Troponin I High Sens 16 03/25/23 15:31: POC Glucose 95 03/25/23 16:05: Urine Color Yellow, Urine Clarity Clear, Urine pH 6.0, Ur Specific [place] 1.020, Urine Protein Negative, Urine Glucose (UA) Normal, Urine Ketones Negative, Urine Occult Blood 25 H, Urine Nitrite Negative, Urine Bilirubin Negative, Urine Urobilinogen Normal, Ur Leukocyte Esterase Negative, Urine RBC 0-5 SEEN, Urine WBC 0 SEEN, Ur Squamous Epith Cells 0 SEEN, Urine Bacteria 0 SEEN, Urine Mucus 0 SEEN 03/26/23 06:50: WBC 6.2, RBC 3.80 L, Hgb 11.8 L, Hct 36.3 L, MCV 95.5 H, MCH 31.1, MCHC 32.5, RDW Std Deviation 46.9 H, RDW Coeff of [place] 13.3, Plt Count 194, MPV 10.0, Immature Gran % (Auto) 0.300, Neut % (Auto) 73.2 H, Lymph % (Auto) 12.5 L, [place] % (Auto) 9.5, Eos % (Auto) 3.7, Baso % (Auto) 0.8, Absolute Neuts (auto) 4.6, Absolute Lymphs (auto) 0.78 L, Nucleated RBC % 0, Sodium 140, Potassium 3.4 L, Chloride 110 H, Carbon Dioxide 26.0, Anion Gap 4 L, BUN 19 H, Creatinine 1.16, Estim Creat Clear Calc 44.22, Est GFR (MDRD) Af Amer 77, Est GFR (MDRD) Non-Af 63, BUN/Creatinine Ratio 16.4, Glucose 113 H, Calcium 8.7, Triglycerides 117, Cholesterol 114, LDL Cholesterol 44, VLDL Cholesterol 23, HDL Cholesterol 47 Radiography Diagnostic Testing: Radiology Impression Head/Neck CTA 03/25/23 15:23 IMPRESSION: No hemodynamically significant stenosis. Electronically Signed: Will PatelDO at 17:12 EST , Chest X-Ray 03/25/23 16:20 IMPRESSION: Left basilar effusion and consolidation. Electronically Signed: Will Patel DO at 16:48 EST , D/C Instructions Discharge Diet: Low fat / Low cholesterol and 2000 mg Sodium Diet Weight Bearing Status: Weight bearing as tolerated Call your doctor if you observe: Fever of 101 or Higher, Coldness, Increased Pain, Numbness or Tingling, Change in Color, Inability to urinate, Inability to have a bowel movement, Shortness of breath, Dizziness, Fainting spells, Swelling in the ankles, Chest pain, Prolonged hiccupping, Increased palpitations (irregular heartbeat) and Calf discomfort When: IN 2 WEEKS Meaningful Use Info Meaningful Use Diagnoses (Choose all that apply): None applicable Discharge Plan Admission Admit Date/Time: 03/25/23 18:03 Primary Reason for Your Visit: Most likely TIA Attending Provider: Sarkis Adames Primary Care Provider: Torin Noyola Consulting Providers: Karlie Roberson Instructions Additional Instructions / Restrictions: Outpatient 2D echo with bubble contrast study to rule out PFO/ASD. Outpatient CT head/brain without contrast in 2 to 3 days and follow-up with PCP. Discharge Orders/Prescriptions Prescriptions: Continued buspirone 5 mg tablet 5 mg PO BID PRN (Reason: ANXIETY ) zolpidem 5 MG tablet 5 mg PO QHS PRN (Reason: INSOMNIA ) lisinopril 40 MG tablet 40 mg PO DAILY ipratropium-albuterol 1 PUFF inhaler 1 puff inhalation 4X/DAY PRN (Reason: COPD) dorzolamide 2 % drops 1 drp ophthalmic (eye) TID latanoprost 0.005 % drops 1 drp ophthalmic (eye) QHS aspirin 81 MG tablet,chewable 81 mg PO DAILY 30 Days Qty: 30 2RF apixaban 5 mg tablet 5 mg PO BID Qty: 60 11RF furosemide 20 mg tablet 20 mg PO DAILY Qty: 90 4RF carvedilol 6.25 mg tablet 6.25 mg PO BID Qty: 180 3RF amlodipine 10 mg tablet 10 mg PO DAILY Qty: 90 3RF atorvastatin 80 mg tablet 80 mg PO QHS Qty: 90 3RF Other Ambulatory Orders: Echo Complete W/ Contrast (Routine) Timeframe: 1 Week Facility: [facility] - Location: [facility] Ordered By: Dr. Sarkis Adames Referrals / Follow Up: Jules Low MD [Non-Staff -Ordering Privileges] - Within 2 Weeks (FOR TIA) Torin Noyola MD [Primary Care Provider] - Within 1 Week Disposition Disposition (needs filled in before D/C Order can be placed): Home, Self Care Charges/Coding Visit Charges Inpatient E&M: 21140 Disch Hosp >30min
[2023-03-26 12:42] VITALS: BMI 30.8
--- NOTE | 2023-03-27 08:32 | NURSING ---
Scheduling called to set up out patient CT Brain/Head without contrast per Dr Adames request. Pt was accidentally discharged home prior to testing being completed. Scheduling will call patient to set up test.
== END 2023-03-26 12:14 | disposition home or self-care (01) ==
LOC: ED 17:26 → PCU 18:10
PROVIDERS: Admitting Provider Internal Medicine; Emergency Provider Emergency Medicine; PCP Internal Medicine; Visit Provider Internal Medicine
DX: H54.7 Unspecified visual loss (principal); J44.9 Chronic obstructive pulmonary disease, unspecified; I50.22 Chronic systolic (congestive) heart failure; I13.0 Hypertensive heart and chronic kidney disease with heart failure and stage 1 through stage 4 chronic kidney disease, or unspecified chronic kidney disease; I48.20 Chronic atrial fibrillation, unspecified; N18.31 Chronic kidney disease, stage 3a; I45.10 Unspecified right bundle-branch block; Z87.891 Personal history of nicotine dependence; Z86.73 Personal history of transient ischemic attack (TIA), and cerebral infarction without residual deficits; I25.10 Atherosclerotic heart disease of native coronary artery without angina pectoris; Z95.810 Presence of automatic (implantable) cardiac defibrillator; Z79.82 Long term (current) use of aspirin; Z79.899 Other long term (current) drug therapy; Z79.01 Long term (current) use of anticoagulants; G47.33 Obstructive sleep apnea (adult) (pediatric)
CPT/HCPCS: 36415; 70496; 70498; 71045; 80048; 80061; 81001; 82962; 84484; 85025; 85610; 85730; 92610; 93005; 94762; 96360; 96361; 99221; 99285; J7030; Q9967; G0378

== ENCOUNTER → 2023-03-27 | Outpatient (CLI) | payer MEDICARE, SELFPAY ==
--- NOTE | 2023-03-27 12:06 | CT_ITS ---
STUDY: CT BRAIN WITHOUT CONTRAST REASON FOR EXAM: Male, 87 years old. To rule out stroke, had TIA RADIATION DOSAGE (If Supplied By Facility): CTDIvol = ( 44.99 ) mGy, DLP = ( 880.47 ) mGycm TECHNIQUE: Transaxial CT imaging of the brain was performed without administration of intravenous contrast material. Individualized dose optimization techniques were used for this CT. COMPARISON: March 25, 2023 FINDINGS: Normal soft tissue structures. Normal calvarium. There is mild cerebral atrophy with widening of the extra-axial spaces and ventricular dilatation. There is stable right temporal volume loss and encephalomalacia. Normal basal ganglia and thalami. Normal brainstem. There is mild cerebellar atrophy. There is no intracranial hemorrhage. There are no findings of an acute ischemic infarction. There is mucoperiosteal inflammatory disease of the paranasal sinuses consistent with severe chronic sinusitis. CT/Brain/Head without Contrast IMPRESSION: Chronic involutional changes of the brain. Electronically Signed: Abdullahi Botelol MD at 13:10 EST ,
== END | disposition home or self-care (01) ==
LOC: CT 12:05
PROVIDERS: PCP Internal Medicine; Visit Provider Internal Medicine
DX: Z86.73 Personal history of transient ischemic attack (TIA), and cerebral infarction without residual deficits (principal)
CPT/HCPCS: 70450

== ENCOUNTER → 2023-04-15 | Outpatient (CLI) | payer MEDICARE, SELFPAY ==
[2023-04-15 11:25] LABS: Absolute Lymphocyte Count 0.72 X10^3/uL (0.83-4.51); Basophil# 0.07 X10^3/uL; Basophil% 1.3 % (0-1); Eosinophil# 0.24 X10^3/uL; Eosinophils% 4.4 % (0-5); Hematocrit 41.2 % (40-54); Hemoglobin 12.7 g/dL (13.0-16.5); Lymphocyte # 0.72 X10^3/ul (0.83-4.51); Lymphocyte % 13.2 % (19-41); Mean Corp Hgb Conc 30.8 g/dL (32-36); Mean Corpuscular Hgb 30.2 pg (27.0-32.0); Mean Corpuscular Volume 98.1 fL (80-94); Mean Platelet Vol. 10.8 fl (6.2-12.0); Monocyte# 0.39 X10^3/uL; Monocyte% 7.2 % (0-10); NRBC Flagged by Analyzer 0 % (0-5); Neutrophil # 4.01 X10^3/uL (2.7-7.7); Neutrophil % 73.5 % (47-70); Platelet Count 211 K/mm3 (150-450); RBC Distribution Width CV 13.5 % (11.6-14.6); RBC Distribution Width SD 48.4 fl (35.1-43.9); White Blood Count 5.5 K/mm3 (4.4-11.0)
[2023-04-15 11:47] LABS: BNP,B-Type NATRIURETIC PEPTIDE 202.5 pg/mL (0-100)
[2023-04-15 12:00] LABS: Anion Gap 4 (5-15); BUN 20 mg/dL (7-18); BUN/Creat Ratio 15.9 RATIO (10-20); Calcium,Total 8.6 mg/dL (8.5-10.1); Chloride 110 mmol/L (98-107); Creatinine, Serum 1.26 mg/dL (0.70-1.30); EST Glomerular Filtration Rate 58 mL/min (>60); Est Glom Filt Rate - Afr Amer 70 mL/min (>60); Glucose 152 mg/dL (74-106); Potassium 3.4 mmol/L (3.5-5.1); Sodium Level 140 mmol/L (136-145)
== END | disposition home or self-care (01) ==
LOC: LAB 10:30
PROVIDERS: PCP Internal Medicine; Referring Provider Nurse Practitioner Family; Visit Provider Nurse Practitioner Family
DX: I15.9 Secondary hypertension, unspecified (principal); I50.22 Chronic systolic (congestive) heart failure; I48.20 Chronic atrial fibrillation, unspecified; I25.10 Atherosclerotic heart disease of native coronary artery without angina pectoris
CPT/HCPCS: 36415; 80048; 83880; 85025

== ENCOUNTER 2023-11-22 21:23 | Emergency (ER) | payer MEDICARE, SELFPAY ==
[2023-11-22 21:24] VITALS: BP 156/117; PULSE 83; RESP 30; TEMP 36.6; O2SAT 100; BMI 66.2
--- NOTE | 2023-11-22 22:14 | EDS_ITS ---
HPI History of Present Illness Chief Complaint: Shortness of Breath Informant: patient Onset/Context/Timing Onset: Today Context: gradual Timing: Continuous Quality: Positive for Dyspnea on exertion Worsened by: Exertion Relieved by: Nothing; Not Relieved By Albuterol Associated Symptoms cough; Negative for rhinorrhea, post nasal drip, ear pain, fever, sore throat, chills, sweats, clear sputum, white sputum, yellow sputum or green sputum Chest Pain: Positive for None Narrative Narrative: Patient presents with shortness of breath that began today. Patient states it was gradually getting worse. Patient states that his breathing is worse with any exertion. Patient states nothing makes his breathing any better. Patient admits to a cough but denies any sputum production. Patient denies any fevers or chills. Patient states that he was checking his blood pressure at home and it was over 180 systolic. Patient denies any chest pain. Patient denies any nausea or vomiting. Patient states he was taking his albuterol at home with no improvement. PE Risk Factors: Positive for Cancer (Skin cancer); Negative for OCP + Smoking + > 35, Prior DVT or PE, Recent immobilization, Recent surgery or Recent travel [facility] Medical History Depression Rheumatoid arthritis BiPAP (biphasic positive airway pressure) dependence Sleep apnea Pacemaker Congestive heart failure (CHF) Atherosclerotic heart disease of [place] coronary artery without angina pectoris Atrial fibrillation CVA (cerebral vascular accident) Home Medications ?Medication ?Instructions ?Recorded ?Last Taken ?Type lisinopril 40 mg tablet 40 mg PO DAILY BLOOD PRESSURE 09/15/13 03/25/23 History zolpidem 5 mg tablet 5 mg PO QHS PRN INSOMNIA 09/15/13 Unknown History ipratropium 20 mcg-albuterol 100 1 puff inhalation 4X/DAY PRN COPD 09/20/19 Unknown History mcg/actuation mist for inhalation amlodipine 10 mg tablet 10 mg PO DAILY BLOOD PRESSURE #90 12/11/22 03/25/23 Rx tabs atorvastatin 80 mg tablet 80 mg PO QHS CHOLESTEROL #90 tabs 03/02/23 03/24/23 Rx dorzolamide 2 % eye drops 1 drp ophthalmic (eye) TID GLAUCOMA 03/25/23 03/24/23 History latanoprost 0.005 % eye drops 1 drp ophthalmic (eye) QHS 03/25/23 03/24/23 History GLAUCOOMA aspirin 81 mg chewable tablet 81 mg PO DAILY HEART HEALTH 30 03/26/23 Unknown Rx days #30 tabs ipratropium 0.5 mg-albuterol 3 mg 3 ml inhalation 4X/DAY PRN 04/15/23 Unknown History (2.5 mg base)/3 mL nebulization shortness of breath or wheezing soln potassium chloride 20 mEq 20 meq PO DAILY #90 tabs 04/15/23 Unknown Rx tablet,extended release apixaban 5 mg tablet 5 mg PO BID BLOOD THINNER #60 tabs 05/18/23 Unknown Rx carvedilol 6.25 mg tablet 6.25 mg PO BID HEART #180 tabs 05/18/23 Unknown Rx furosemide 20 mg tablet 20 mg PO DAILY EDEMA #90 tabs 07/07/23 Unknown Rx Allergy/AdvReac Type Severity Reaction Status Date / Time Penicillins (PCN) Allergy Rash Verified 11/22/23 21:26 Sulfa (Sulfonamide Allergy Rash Verified 11/22/23 21:26 Antibiotics) Family History Mother Myocardial infarction Sister Tuberculosis Father Peripheral artery disease Surgical History History of coronary artery stent placement History of total left knee replacement History of left inguinal hernia repair History of cholecystectomy S/P CABG (coronary artery bypass graft) S/P implantation of automatic cardioverter/defibrillator (AICD) H/O coronary angioplasty History of cardiac catheterization Social History Smoking Status: Former smoker how long ago did patient quit smokin alcohol intake: current alcohol intake frequency: a few times a week substance use type: does not use caffeine: Yes Type: coffee Number of servings: 6 ROS ROS ED Constitutional Constitutional ED: Denies chills or fever(s) Eyes Eyes: Denies blurry vision or change in vision ENT ENT ED: Denies rhinorrhea or sore throat Cardiovascular Cardiovascular: Denies chest pain or palpitations Respiratory/Chest Respiratory/Chest: Reports cough and dyspnea Gastrointestinal Gastrointestinal: Denies nausea or vomiting Genitourinary Genitourinary ED: Denies dysuria or hematuria Musculoskeletal Musculoskeletal: Reports back pain and neck pain Integumentary Denies abscess or rash Neurologic Neurologic: Denies headache(s) or weakness Allergic/Immunologic Allergic/Immunologic ED: Denies mouth swelling or urticaria EXAM Physical Exam Const Vital Signs: 11/22/23 21:24 11/22/23 21:42 11/22/23 22:40 Temperature 97.9 F Temperature Source Temporal Pulse Rate 83 Respiratory Rate 30 H Respiratory Effort Normal Non-Labored Respiratory Depth Normal Respiratory Pattern Normal Blood Pressure 156/117 H Blood Pressure Mean 130 Pulse Ox 100 97 Oxygen Delivery Method Room Air Room Air Room Air 11/22/23 23:40 11/23/23 01:00 Temperature Temperature Source Pulse Rate 74 70 Respiratory Rate 16 18 Respiratory Effort Respiratory Depth Respiratory Pattern Blood Pressure 159/99 H 157/90 H Blood Pressure Mean 119 112 Pulse Ox 97 Oxygen Delivery Method Room Air Positive well nourished and well developed General Appearance ED: well developed and NAD HEENT Reports moist mucous membranes atraumatic and trauma Neck supple and no JVD Resp normal respiratory effort and clear to auscultation bilaterally Cardio regular rate Rhythm: abnormal rhythm irregularly irregular GI non-tender and non-distended Extremity normal to inspection General Extremety ED: Negative for edema or tenderness General Extremity: Negative for edema Neuro oriented x3, CN's II-XII intact bilaterally and no sensory deficits noted Advance Coma Scale: document GCS findings Spontaneous Obeys Commands Oriented 15 Sensorium / Orientation: alert Motor Exam: strength 5/5 throughout Psych mental status grossly normal MDM MDM MDM Narrative Medical decision making narrative: Differential diagnosis includes pneumonia, pneumothorax, viral illness, congestive heart failure, cardiac dysrhythmia, cardiac ischemia, electrolyte abnormality, and pulmonary embolism. EKG will be obtained to assess for cardiac dysrhythmia and cardiac ischemia. Chest x-ray will be obtained to assess for pneumonia or pneumothorax. CBC will be obtained to assess for leukocytosis and anemia. Basic metabolic profile will be obtained to assess for electrolyte abnormality renal function. High-sensitivity troponin will be obtained to assess for cardiac ischemia. D-dimer will be obtained to assess for pulmonary embolism. BNP will be obtained to assess for congestive heart failure. 2-hour repeat high-sensitivity troponin will be obtained to assess for ongoing cardiac ischemia. Lab Data Attestation: I reviewed the patient's lab results. Lab results narrative: CBC was reviewed. There is a slight anemia with a hemoglobin of 12.2 and hematocrit 37.9. Basic metabolic profile was reviewed. BUN was slightly elevated at 22 and creatinine was slightly elevated at 1.47. D-dimer was reviewed and was elevated at 1.02. High-sensitivity troponin was reviewed and was normal at 17. BNP was reviewed and was 285.2. 2-hour repeat high- sensitivity troponin was reviewed and was normal at 19. COVID-19 PCR was reviewed and was negative. Influenza PCR was reviewed and was negative for influenza A and influenza B. RSV PCR was reviewed and was negative. Labs: Laboratory Results - last 24 hr 11/22/23 11/23/23 22:38 00:45 WBC 6.4 RBC 3.97 L Hgb 12.2 L Hct 37.9 L MCV 95.5 H MCH 30.7 MCHC 32.2 RDW Std Deviation 49.7 H RDW Coeff of [place] 14.1 Plt Count 191 MPV 10.3 Immature Gran % (Auto) 0.200 Neut % (Auto) 70.4 H Lymph % (Auto) 15.1 L [place] % (Auto) 8.3 Eos % (Auto) 5.2 H Baso % (Auto) 0.8 Absolute Neuts (auto) 4.5 Absolute Lymphs (auto) 0.96 Nucleated RBC % 0 D-Dimer Quant (PE/DVT) 1.02 H* Sodium 141 Potassium 4.0 Chloride 110 H Carbon Dioxide 26.0 Anion Gap 5 BUN 22 H Creatinine 1.47 H Estim Creat Clear Calc 60.15 Est GFR (MDRD) Af Amer 58 L Est GFR (MDRD) Non-Af 48 L BUN/Creatinine Ratio 15.0 Glucose 109 H Calcium 8.6 Troponin I High Sens 17 19 B-Natriuretic Peptide 285.2 H Radiography Diagnostic Testing: Clinical Impression(s) from Imaging Studies Chest X-Ray 11/22/23 22:45 IMPRESSION: Small left pleural effusion and basilar infiltrate or atelectasis slightly increased compared to the prior. Electronically Signed: Galina Manzano MD at 23:15 EDT , Chest CTA 11/22/23 23:33 IMPRESSION: 1. No evidence of pulmonary emboli. 2. Findings suggest mild interstitial pulmonary edema. 3. Pleural soft tissue thickening versus mass on the left with associated calcifications not significantly changed compared to prior CT chest from 09/06/2014. Possibly postinflammatory or other etiology. Electronically Signed: Galina Manzano MD at 1:01 EDT , PA and lateral chest x-ray was obtained. There are 2 views. On my independent interpretation, lung mathews show small left pleural effusion and basilar infiltrate. There is normal cardiac silhouette. Bony thorax is normal. There is no acute process noted. Radiologist also interpreted the x-ray and agrees. Because of the elevated D-dimer, CTA of the chest was obtained. There is no evidence of pulmonary embolism. There is some mild interstitial pulmonary edema. There is a soft tissue thickening versus mass on the left that was unchanged compared to previous CT chest. This was interpreted by the radiologist and was also independently reviewed by myself. EKG Initial EKG: Attestation: I personally reviewed and interpreted this EKG as follows: Interpretation: Atrial Fibrillation and Non-Specific ST Changes Comments: EKG was obtained. On my independent interpretation, it shows atrial fibrillation with occasional PVCs with a rate of 80. QRS interval was slightly prolonged at 150 ms. QTc interval was slightly prolonged at 500 ms. There is left axis deviation of -58. There is right bundle branch block pattern noted. There are nonspecific ST-T wave changes noted. Prior EKG tracings: available for review Prior: Unchanged (03/25/2023) Treatment and Re-Evaluation :: Patient was given aspirin. Patient was given a dose of Lasix here. Patient was advised of his findings. Patient was feeling better after diuresis. Patient was instructed to follow-up with his primary care physician in 5 to 7 days. Patient was instructed return if worse in any way. Patient understood and was agreeable with the plan. All questions were answered. Discharge Plan Triage Chief Complaint: Shortness of Breath ED Provider: Yg Cota Dx/Rx/DC Orders Clinical Impression: Dyspnea on exertion, Hypertension, Systolic congestive heart failure Instructions: ED Heart Failure, Congestive (CHF), ED Dyspnea Prescriptions: No Action ipratropium-albuterol 0.5 mg-3 mg(2.5 mg base)/3 mL solution for nebulization 3 ml inhalation 4X/DAY PRN (Reason: shortness of breath or wheezing) Patient Comments: INHALE 1 (ONE) VIAL VIA NEBULIZER UP TO FOUR TIMES DAILY NEEDED FOR FOR WHEEZING OR SHORTNESS OF BREATH zolpidem 5 MG tablet 5 mg PO QHS PRN (Reason: INSOMNIA ) lisinopril 40 MG tablet 40 mg PO DAILY ipratropium-albuterol 1 PUFF inhaler 1 puff inhalation 4X/DAY PRN (Reason: COPD) dorzolamide 2 % drops 1 drp ophthalmic (eye) TID latanoprost 0.005 % drops 1 drp ophthalmic (eye) QHS aspirin 81 MG tablet,chewable 81 mg PO DAILY 30 Days Qty: 30 2RF amlodipine 10 mg tablet 10 mg PO DAILY Qty: 90 3RF atorvastatin 80 mg tablet 80 mg PO QHS Qty: 90 3RF potassium chloride 20 mEq tablet extended release 20 meq PO DAILY Qty: 90 3RF apixaban 5 mg tablet 5 mg PO BID Qty: 60 11RF carvedilol 6.25 mg tablet 6.25 mg PO BID Qty: 180 3RF furosemide 20 mg tablet 20 mg PO DAILY Qty: 90 4RF Primary Care Provider: Torin Noyola Referrals: Torin Noyola MD [Primary Care Provider] - 3-5 Days Print Language: Prydeinig Disposition Disposition: Home, Self Care
--- NOTE | 2023-11-22 22:25 | EKG12_ITS ---
Test Reason : SOB Blood Pressure : / mmHG Vent. Rate : 080 BPM Atrial Rate : 000 BPM P-R Int : 000 ms QRS Dur : 150 ms QT Int : 434 ms P-R-T Axes : 000 -58 074 degrees QTc Int : 500 ms Atrial fibrillation with premature ventricular or aberrantly conducted complexes Left axis deviation Right bundle branch block Abnormal ECG Confirmed by FRANC LUCAS, DAVY ([id number]), business editor MOSHE YUAN ([id number]) on 11/24/2023 8:30:46 AM Referred By: Confirmed By:DAVY BRUNER MD
[2023-11-22 22:40] VITALS: O2SAT 97
[2023-11-22] MEDS: Aspirin 81 MG TAB.CHEW 324 MG PO (22:42)
[2023-11-22 22:44] LABS: Absolute Lymphocyte Count 0.96 X10^3/uL (0.83-4.51); Absolute Neutrophil Count 4.5 X10^3/uL (2.0-7.7); Basophil# 0.05 X10^3/uL; Basophil% 0.8 % (0-1); Eosinophil# 0.33 X10^3/uL; Eosinophils% 5.2 % (0-5); Hematocrit 37.9 % (40-54); Hemoglobin 12.2 g/dL (13.0-16.5); Lymphocyte # 0.96 X10^3/ul (0.83-4.51); Lymphocyte % 15.1 % (19-41); Mean Corp Hgb Conc 32.2 g/dL (32-36); Mean Corpuscular Hgb 30.7 pg (27.0-32.0); Mean Corpuscular Volume 95.5 fL (80-94); Mean Platelet Vol. 10.3 fl (6.2-12.0); Monocyte# 0.53 X10^3/uL; Monocyte% 8.3 % (0-10); NRBC Flagged by Analyzer 0 % (0-5); Neutrophil # 4.49 X10^3/uL (2.7-7.7); Neutrophil % 70.4 % (47-70); Platelet Count 191 K/mm3 (150-450); RBC Distribution Width CV 14.1 % (11.6-14.6); RBC Distribution Width SD 49.7 fl (35.1-43.9); Red Blood Count 3.97 M/mm3 (4.6-6.2); White Blood Count 6.4 K/mm3 (4.4-11.0)
--- NOTE | 2023-11-22 22:45 | RAD_ITS ---
INDICATION: chest pain EXAMINATION/TECHNIQUE: X-RAY - XR Chest 2 Views COMPARISON: 03/25/2023 FINDINGS: LINES/DEVICES: Pacemaker device with leads unchanged. LUNGS: Opacity at the left lung base is slightly increased likely small pleural effusion and associated atelectasis or consolidation. No pneumothorax. MEDIASTINUM: Aorta is atherosclerotic. CARDIAC SILHOUETTE: Not enlarged. Sternal wires. BONES AND SOFT TISSUES: No acute abnormalities. Surgical hardware in the right shoulder RAD/Chest PA and Lateral IMPRESSION: Small left pleural effusion and basilar infiltrate or atelectasis slightly increased compared to the prior. Electronically Signed: Galina Manzano MD at 23:15 EDT ,
[2023-11-22 23:00] LABS: D-Dimer Quantitative (DVT/PE) 1.02 FEU/ug/m (0.27-0.49)
[2023-11-22 23:01] LABS: Anion Gap 5 (5-15); BUN 22 mg/dL (7-18); Calcium,Total 8.6 mg/dL (8.5-10.1); Chloride 110 mmol/L (98-107); Creatinine, Serum 1.47 mg/dL (0.70-1.30); EST Glomerular Filtration Rate 48 mL/min (>60); Est Glom Filt Rate - Afr Amer 58 mL/min (>60); Estimated Creatinine Clearance 60.15 ml/min; Glucose 109 mg/dL (74-106); Sodium Level 141 mmol/L (136-145); Troponin-I HS (w/2H Reflex) 17 pg/mL (3.0-78.0)
[2023-11-22 23:02] LABS: BNP,B-Type NATRIURETIC PEPTIDE 285.2 pg/mL (0-100)
--- NOTE | 2023-11-22 23:33 | CT_ITS ---
STUDY: CTA CHEST REASON FOR EXAM: Male, 88 years old. SOB RADIATION DOSAGE (If Supplied By Facility): CTDIvol = ( 15.04 ) mGy, DLP = ( 533.38 ) mGycm TECHNIQUE: The examination was performed with the intravenous administration of IV 100mL Isovue-370. Post-processing of the angiographic images was performed, with multiplanar reformation and 3D reconstruction. The protocol utilizes one or more of the following dose reduction techniques: automated exposure control, adjustment of mA and/or kV according to patient size,and/or use of iterative reconstruction technique. COMPARISON: CT chest 09/06/2014. FINDINGS: LUNGS: Mild hazy opacities in the lungs with septal thickening. No consolidation. PLEURA: Pleural soft tissue thickening/mass posterolaterally on the left with calcifications, not significantly changed compared to prior study. No pleural effusion. No pneumothorax. PULMONARY VESSELS: No pulmonary emboli identified. MEDIASTINUM: Unremarkable. HEART: Enlarged. Small pericardial effusion versus pericardial thickening. Coronary artery calcifications are noted. Sternal wires. Pacemaker leads. AORTA/GREAT VESSELS: Thoracic aorta is normal caliber. Nonopacified aortic lumen precludes evaluation for dissection dissection. UPPER ABDOMEN: No acute findings. BONES/SOFT TISSUES: No acute findings. Surgical hardware in the right shoulder. OTHER: None. CT/CTA Chest W/WO Contrast IMPRESSION: 1. No evidence of pulmonary emboli. 2. Findings suggest mild interstitial pulmonary edema. 3. Pleural soft tissue thickening versus mass on the left with associated calcifications not significantly changed compared to prior CT chest from 09/06/2014. Possibly postinflammatory or other etiology. Electronically Signed: Galina Manzano MD at 1:01 EDT ,
[2023-11-22 23:40] VITALS: BP 159/99; PULSE 74; RESP 16; O2SAT 97
[2023-11-23 00:41] LABS: Reflex Troponin-HS? (from REC) Y
[2023-11-23 01:00] VITALS: BP 157/90; PULSE 70; RESP 18
[2023-11-23 01:46] LABS: Troponin-I HS 19 pg/mL (3.0-78.0)
[2023-11-23] MEDS: Furosemide 20 MG/2 ML VIAL IV (01:49)
[2023-11-23 02:12] VITALS: BP 130/90; PULSE 74; RESP 18; TEMP 36.4; O2SAT 95
== END 2023-11-23 02:13 | disposition home or self-care (01) ==
PROVIDERS: Emergency Provider Emergency Medicine; PCP Internal Medicine; Visit Provider Emergency Medicine
DX: R06.00 Dyspnea, unspecified (principal); I11.0 Hypertensive heart disease with heart failure; I50.22 Chronic systolic (congestive) heart failure; I48.91 Unspecified atrial fibrillation; I25.10 Atherosclerotic heart disease of native coronary artery without angina pectoris; R05.9 Cough, unspecified; Z11.52 Encounter for screening for COVID-19; Z79.01 Long term (current) use of anticoagulants; Z79.82 Long term (current) use of aspirin; Z79.899 Other long term (current) drug therapy; Z86.73 Personal history of transient ischemic attack (TIA), and cerebral infarction without residual deficits; Z95.1 Presence of aortocoronary bypass graft; Z95.5 Presence of coronary angioplasty implant and graft; Z95.810 Presence of automatic (implantable) cardiac defibrillator; Z87.891 Personal history of nicotine dependence
CPT/HCPCS: 71046; 71275; 80048; 83880; 84484; 85025; 85379; 87631; 93005; 96374; 99285; Q9967; A4216; J1940

== ENCOUNTER 2024-02-11 12:58 | Observation (INO) | payer MEDICARE, SELFPAY ==
[2024-02-11] VITALS (16 sets, daily range): BP systolic 133–180; BP diastolic 79–131; PULSE 65–97; RESP 12–23; TEMP 36.1–37.1; O2SAT 94–99; BMI 29.9; BMI 28.3
--- NOTE | 2024-02-11 13:49 | EKG12_ITS ---
Test Reason : STROKE Blood Pressure : / mmHG Vent. Rate : 068 BPM Atrial Rate : 000 BPM P-R Int : 000 ms QRS Dur : 186 ms QT Int : 494 ms P-R-T Axes : 000 -64 085 degrees QTc Int : 525 ms Atrial fibrillation Right bundle branch block Left anterior fascicular block Bifascicular block Abnormal ECG Confirmed by FRANC LUCAS, DAVY ([id number]), news videotape editor MOSHE YUAN ([id number]) on 02/12/2024 2:14:45 PM Referred By: TB Confirmed By:DAVY BRUNER MD
--- NOTE | 2024-02-11 13:50 | CT_ITS ---
STUDY: CTA HEAD AND NECK WITH CONTRAST REASON FOR EXAM: Male, 88 years old. Neuro deficit, acute, stroke suspected RADIATION DOSAGE (If Supplied By Facility): CTDIvol = ( 35.43 ) mGy, DLP = ( 857.95 ) mGycm TECHNIQUE: CT angiography was performed with a multi-detector CT scanner. Data acquisition was obtained from the skull base through the vertex following intravenous administration of IV 100mL Isovue-370. MIP images were reconstructed from the axial data set. Post-processing of the angiographic images was performed, with multiplanar reformation and 3D reconstruction. Individualized dose optimization techniques were used for this CT. COMPARISON: No relevant priors. FINDINGS: Normal bilateral petrous carotid arteries. There is calcified plaque formation of the right cavernous carotid artery, without a cross-sectional luminal stenosis. There is calcified plaque formation of the left cavernous carotid artery, without a cross-sectional luminal stenosis. Normal right A1 segments of the anterior cerebral artery. Normal left A1 segments of the anterior cerebral artery. Normal intact anterior communicating artery (ACOM). Normal bilateral A2 segments of the anterior cerebral arteries. Normal right M1 and M2 segments of the middle cerebral arteries, with a normal M1 bifurcation. Normal left M1 and M2 segments of the middle cerebral arteries, with a normal M1 bifurcation. Normal right posterior communicating artery (PCOM). Normal left posterior communicating artery (PCOM). Normal bilateral vertebral arteries. Normal basilar artery with a normal basilar bifurcation. The visualized bilateral superior cerebellar (SCA) arteries are normal. Normal bilateral P1, P2 and visualized P3 segments of the posterior cerebral arteries. There is no demonstrated aneurysm of the [place]. There is a 8.1 mm x 7 mm calculus in the left submandibular gland. Pansinusitis including the left sphenoid sinus. AORTIC ARCH: There is atherosclerotic calcific plaque formation of the aortic arch and great vessels arising from the aortic arch, without a hemodynamically significant stenosis. There is a normal origin of the brachiocephalic, left common carotid, and left subclavian arteries. RIGHT CAROTID ARTERIES: Normal right common carotid artery (CCA). Normal right common carotid bulb. There is mild atherosclerotic plaque formation of the origin of the right internal carotid artery with less than 50% cross sectional diameter stenosis. Normal visualized cervical portion of the right internal carotid artery. Normal origin of the right external carotid artery (ECA). LEFT CAROTID ARTERIES: Normal left common carotid artery (CCA). Normal left common carotid bulb. There is mild atherosclerotic plaque formation of the origin of the left internal carotid artery with less than 50% cross sectional diameter stenosis. Normal visualized cervical portion of the left internal carotid artery. Normal origin of the left external carotid artery (ECA). VERTEBRAL ARTERIES: There is enhancement within the bilateral vertebral arteries with a small right vertebral artery, and a dominant left vertebral artery. CT/STROKE CTA Head AND Neck W/Con IMPRESSION: Atherosclerotic plaque formation at the origin of the left and right internal carotid arteries causing less than 50% stenosis. 8 mm calculus in the left submandibular gland. N.B. : The above Results were Read Back by Geovany Pruett MD to Waldo Taylor and understanding confirmed on 02/11/2024 14:19:59 (ET). Electronically Signed: Geovany Pruett MD at 14:21 EDT ,
--- NOTE | 2024-02-11 13:50 | NURSING ---
STROKE ALERT CALLED
--- NOTE | 2024-02-11 13:52 | CT_ITS ---
STUDY: CT HEAD STROKE PROTOCOL W/O CONTRAST INJECTION REASON FOR EXAM: Male, 88 years old. Neuro deficit, acute, stroke suspected RADIATION DOSAGE (If Supplied By Facility): CTDIvol = ( 44.99 ) mGy, DLP = ( a 12.98 ) mGycm TECHNIQUE: Transaxial CT imaging of the brain was performed without administration of intravenous contrast material. Individualized dose optimization techniques were used for this CT. COMPARISON: No relevant priors. FINDINGS: Normal soft tissue structures. Normal calvarium. There is mild cerebral atrophy with widening of the extra-axial spaces and ventricular dilatation. There are areas of decreased attenuation within the white matter tracts of the supratentorial brain, consistent with microvascular disease changes. Stable encephalomalacia involving the right temporal parietal lobes. Normal basal ganglia and thalami. Normal brainstem. There is mild cerebellar atrophy. There is no intracranial hemorrhage. There are no findings of an acute ischemic infarction. Normal visualized paranasal sinuses. ASPECT score: 8 CT/STROKE Brain/Head without Cont IMPRESSION: Chronic involutional changes of the brain. Stable encephalomalacia involving the right temporal parietal lobes. N.B. : The above Results were Read Back by Geovany Pruett MD to Waldo Taylor and understanding confirmed on 02/11/2024 14:07:34 (ET). Electronically Signed: Geovany Pruett MD at 14:08 EDT ,
[2024-02-11 13:58] LABS: Absolute Lymphocyte Count 0.75 X10^3/uL (0.83-4.51); Absolute Neutrophil Count 6.2 X10^3/uL (2.0-7.7); Basophil# 0.05 X10^3/uL; Basophil% 0.6 % (0-1); Eosinophils% 3.8 % (0-5); Hematocrit 38.5 % (40-54); Hemoglobin 12.5 g/dL (13.0-16.5); Lymphocyte # 0.75 X10^3/ul (0.83-4.51); Lymphocyte % 9.6 % (19-41); Mean Corp Hgb Conc 32.5 g/dL (32-36); Mean Corpuscular Hgb 30.5 pg (27.0-32.0); Mean Corpuscular Volume 93.9 fL (80-94); Monocyte# 0.52 X10^3/uL; Monocyte% 6.6 % (0-10); NRBC Flagged by Analyzer 0 % (0-5); Neutrophil # 6.18 X10^3/uL (2.7-7.7); Neutrophil % 79.1 % (47-70); Platelet Count 216 K/mm3 (150-450); RBC Distribution Width CV 13.6 % (11.6-14.6); RBC Distribution Width SD 46.4 fl (35.1-43.9); White Blood Count 7.8 K/mm3 (4.4-11.0)
[2024-02-11 14:15] LABS: Anion Gap 10 (5-15); BUN 18 mg/dL (7-18); BUN/Creat Ratio 13.6 RATIO (10-20); Chloride 106 mmol/L (98-107); Creatinine, Serum 1.32 mg/dL (0.70-1.30); EST Glomerular Filtration Rate 55 mL/min (>60); Est Glom Filt Rate - Afr Amer 66 mL/min (>60); Estimated Creatinine Clearance 42.82 ml/min; Glucose 133 mg/dL (74-106); Potassium 3.9 mmol/L (3.5-5.1); Sodium Level 138 mmol/L (136-145); Troponin-I HS 12 pg/mL (3.0-78.0)
[2024-02-11 14:17] LABS: International Normalized Ratio 1.3; Prothrombin Time (Protime)PT. 16.3 SECONDS (11.7-14.9)
[2024-02-11 14:18] LABS: Partial Thromboplast Time 32.1 Seconds (24.1-36.2)
[2024-02-11 14:23] LABS: Bedside Glucose 122 mg/dL (74-106)
--- NOTE | 2024-02-11 14:25 | RAD_ITS ---
STUDY: X-RAY CHEST REASON FOR EXAM: Male, 88 years old. Neuro deficit, acute, stroke suspected TECHNIQUE: Single AP portable view of the chest. COMPARISON: Comparison is made with prior study dated November 22, 2023. FINDINGS: EKG electrodes are seen. Pleural parenchymal changes at the left lung base suggestive of left basilar atelectasis and small pleural effusion. This has progressed as compared to prior study. There is no demonstrated pleural abnormality. Sternal cerclage wires and vascular clips are present from a prior sternotomy and coronary artery bypass graft procedure (CABG). A left-sided dual-chamber pacemaker is seen. Normal mediastinum and vee. Normal visualized pulmonary arteries. There is atherosclerotic calcification of the aortic arch with tortuosity. There is an increased kyphosis of the thoracic spine. Normal visualized ribs, clavicles, and shoulders. There is no demonstrated abnormality of the visualized soft tissue structures of the upper abdomen. RAD/Chest 1 View IMPRESSION: Slight increase in the pleural parenchymal changes at the left lung base. Electronically Signed: Geovany Pruett MD at 15:13 EDT ,
--- NOTE | 2024-02-11 14:38 | CHAPLAIN ---
Type of Pastoral Visit ___ Initial Visit ___ Follow-up Visit ___ On-call Visit ___ General Patient Visit ___ Spiritual Assessment ___ Family Conference ___ Bereavement _x__ Rapid Response ___ Code Blue ___ Other (describe below) Pastoral Care Referral From ___ Patient ___ Family ___ Nurse ___ Physician ___ Awning Craftsman ___ Early Childhood Special Educator _x__ Other (describe below) Sacrament/Intervention ___ Active listening ___ Anointing ___ Cheondoism ___ Bereavement ___ Communion ___ Nubia exploration ___ ___ Life review ___ Prayer ___ Reconciliation ___ Sacrament of Sick _x__ Supportive presence ___ Wedding ___ Other (describe below) Pastoral Comments responded to stroke alert and patient was in the CT; spouse was in the room and SW and SW in orientation were with her; offered support to spouse who stated that she was fine; asked SW if anything needed additionally and there was not
--- NOTE | 2024-02-11 15:19 | EX.ED.DYSGE1 ---
HPI History of Present Illness Chief Complaint: Dizziness Narrative Narrative: Patient is a 88-year-old male with past medical history depression, rheumatoid arthritis, OTILIA, atrial fibrillation on Eliquis, CVA who presented to the emergency department with a chief complaint of dizziness. According to the patient and significant other at bedside they noted that around 12:00 in the afternoon he was in the kitchen making a sandwich. Significant other bedside states that he he yelled out from the kitchen asking for help she came in and noted that he was unsteady on his feet. She states that she helped him to the ground he was diaphoretic at the point and not feeling well. States that he was able to get up however he was having difficulty with walking and she had to assist him. Patient states that he did take all his medications this morning including his Eliquis. [facility] Medical History Depression Rheumatoid arthritis BiPAP (biphasic positive airway pressure) dependence Sleep apnea Pacemaker Congestive heart failure (CHF) Atherosclerotic heart disease of [place] coronary artery without angina pectoris Atrial fibrillation CVA (cerebral vascular accident) Home Medications ?Medication ?Instructions ?Recorded ?Last Taken ?Type lisinopril 40 mg tablet 40 mg PO DAILY BLOOD PRESSURE 09/15/13 03/25/23 History zolpidem 5 mg tablet 5 mg PO QHS PRN INSOMNIA 09/15/13 Unknown History ipratropium 20 mcg-albuterol 100 1 puff inhalation 4X/DAY PRN COPD 09/20/19 Unknown History mcg/actuation mist for inhalation amlodipine 10 mg tablet 10 mg PO DAILY BLOOD PRESSURE #90 12/11/22 03/25/23 Rx tabs dorzolamide 2 % eye drops 1 drp ophthalmic (eye) TID GLAUCOMA 03/25/23 03/24/23 History latanoprost 0.005 % eye drops 1 drp ophthalmic (eye) QHS 03/25/23 03/24/23 History GLAUCOOMA aspirin 81 mg chewable tablet 81 mg PO DAILY HEART HEALTH 30 03/26/23 Unknown Rx days #30 tabs ipratropium 0.5 mg-albuterol 3 mg 3 ml inhalation 4X/DAY PRN 04/15/23 Unknown History (2.5 mg base)/3 mL nebulization shortness of breath or wheezing soln potassium chloride 20 mEq 20 meq PO DAILY #90 tabs 04/15/23 Unknown Rx tablet,extended release apixaban 5 mg tablet 5 mg PO BID BLOOD THINNER #60 tabs 05/18/23 Unknown Rx carvedilol 6.25 mg tablet 6.25 mg PO BID HEART #180 tabs 05/18/23 Unknown Rx furosemide 20 mg tablet 20 mg PO DAILY EDEMA #90 tabs 07/07/23 Unknown Rx atorvastatin 80 mg tablet 80 mg PO QHS #90 TABLETS 02/10/24 Unknown Rx Allergy/AdvReac Type Severity Reaction Status Date / Time Penicillins (PCN) Allergy Rash Verified 02/11/24 13:56 Sulfa (Sulfonamide Allergy Rash Verified 02/11/24 13:56 Antibiotics) Family History Mother Myocardial infarction Sister Tuberculosis Father Peripheral artery disease Surgical History History of coronary artery stent placement History of total left knee replacement History of left inguinal hernia repair History of cholecystectomy S/P CABG (coronary artery bypass graft) S/P implantation of automatic cardioverter/defibrillator (AICD) H/O coronary angioplasty History of cardiac catheterization Social History Smoking Status: Former smoker how long ago did patient quit smokin alcohol intake: current alcohol intake frequency: a few times a week substance use type: does not use caffeine: Yes Type: coffee Number of servings: 6 ROS ROS ED ROS Narrative Constitutional: Complains of dizziness as noted above denies any headaches, fevers, chills Eyes: Patient complains of some blurry vision in his left eye denies double vision Cardiovascular: Denies chest pain or palpitations Respiratory: Denies coughing wheezing shortness of breath Abdomen: Denies abdominal pain nausea vomit diarrhea : Denies any urinary symptoms Neurological: Complains of difficulty walking as noted above Musculoskeletal: Denies back pain Skin: Denies rashes or lesions EXAM Physical Exam Narrative Exam Narrative: General: Patient lying in bed rest comfortably did not appear to be in acute distress Head: Atraumatic, normocephalic Eyes: PERRL bilateral, EOMI bilateral, no conjunctival injection noted Neck: Soft, supple, trachea midline Cardiovascular: Regular rate and rhythm no murmurs gallops rubs noted Respiratory: Clear to auscultation bilaterally no rales rhonchi or wheezes noted Abdomen: Soft, nondistended, nontender to palpation Extremities: +4/5 strength noted in the bilateral per extremities, +4/5 strength in the left lower extremity and +3/5 strength in the right lower extremity. Radial pulses +2/4 in the bilateral extremities Neurological: Patient following commands knew that he was at [facility] years 2023. Patient had difficulty with ycoa-wh-cgrl test bilaterally and finger-nose test specifically in the right side. GCS 15 Skin: Warm, dry, intact Const Vital Signs: 02/11/24 12:59 02/11/24 13:38 02/11/24 13:49 Temperature 97 F L Temperature Source Temporal Pulse Rate 80 69 74 Respiratory Rate 20 H 14 18 Blood Pressure 157/131 H 180/111 H 169/91 H Blood Pressure Mean 139 134 117 Pulse Ox 99 97 97 Oxygen Delivery Method Room Air Room Air Room Air 02/11/24 13:58 02/11/24 14:08 02/11/24 14:19 Temperature Temperature Source Pulse Rate 77 78 Respiratory Rate 23 H 22 H Blood Pressure 133/81 H 149/86 H Blood Pressure Mean 98 107 Pulse Ox 96 96 Oxygen Delivery Method Room Air Room Air Room Air 02/11/24 14:30 02/11/24 15:00 Temperature Temperature Source Pulse Rate 72 84 Respiratory Rate 18 18 Blood Pressure 166/81 H 163/79 H Blood Pressure Mean 109 107 Pulse Ox 98 96 Oxygen Delivery Method Room Air Room Air MDM MDM MDM Narrative Medical decision making narrative: Patient is a 88-year-old male who presented to the emergency department with chief complaint of dizziness. He after after evaluation patient was made a stroke alert and ultimately immediately taken down to the CT scanner for further evaluation. On the differential diagnose includes but not limited to ischemic stroke, hemorrhagic stroke, posterior circulation stroke, hypoglycemia. Once workup is obtained reviewed he will be reevaluated. Patient is not tenecteplase candidate as he took his Eliquis this morning. Patient CBC reviewed showed no evidence of leukocytosis white blood count normal at 7.8, hemoglobin stable at 12.5, platelet count was normal at 216. Patient's INR was 1.3, sodium normal 138, potassium normal at 3.9, creatinine was 1.32. Patient's glucose was noted be 133. Patient's troponin normal at 12 with a EKG reviewed and independently interpreted by myself which showed atrial fibrillation with a controlled rate of 60 bpm he has a history of atrial fibrillation again on Eliquis. Patient's Patient CT head and brain without contrast showed chronic involutional changes of the brain. Patient CTA head and neck with contrast reviewed and showed atherosclerotic plaque formation in the origin of the left and right internal carotid artery causing less than 50% stenosis 8 mm calculus in the left submandibular gland. Patient's x-ray of his chest reviewed showed slight increase in the pleural-parenchymal changes in the left lung base. At this point time do believe the patient will require admission for further evaluation management of his ataxia/dizziness. Discussed case with hospitalist Dr. Roberson who accept patient for admission. Patient was notified as well as family member at bedside all question concerns answered. Critical care time 37 minutes Lab Data Labs: Laboratory Results - last 24 hr 02/11/24 02/11/24 13:50 14:05 WBC 7.8 RBC 4.10 L Hgb 12.5 L Hct 38.5 L MCV 93.9 MCH 30.5 MCHC 32.5 RDW Std Deviation 46.4 H RDW Coeff of Theresa 13.6 Plt Count 216 MPV 10.0 Immature Gran % (Auto) 0.300 Neut % (Auto) 79.1 H Lymph % (Auto) 9.6 L [place] % (Auto) 6.6 Eos % (Auto) 3.8 Baso % (Auto) 0.6 Absolute Neuts (auto) 6.2 Absolute Lymphs (auto) 0.75 L Nucleated RBC % 0 PT 16.3 H INR 1.3 APTT 32.1 Sodium 138 Potassium 3.9 Chloride 106 Carbon Dioxide 22.0 Anion Gap 10 BUN 18 Creatinine 1.32 H Estim Creat Clear Calc 42.82 Est GFR (MDRD) Af Amer 66 Est GFR (MDRD) Non-Af 55 L BUN/Creatinine Ratio 13.6 Glucose 133 H Calcium 9.0 Troponin I High Sens 12 POC Glucose 122 H Radiography Diagnostic Testing: Clinical Impression(s) from Imaging Studies Head/Neck CTA 02/11/24 13:50 IMPRESSION: Atherosclerotic plaque formation at the origin of the left and right internal carotid arteries causing less than 50% stenosis. 8 mm calculus in the left submandibular gland. N.B. : The above Results were Read Back by Geovany Pruett MD to Waldo Taylor and understanding confirmed on 02/11/2024 14:19:59 (ET). Electronically Signed: Geovany Pruett MD at 14:21 EDT , ADDENDUM: 02/11/24 1428 IMPRESSION: Atherosclerotic plaque formation at the origin of the left and right internal carotid arteries causing less than 50% stenosis. 8 mm calculus in the left submandibular gland. N.B. : The above Results were Read Back by Geovany Pruett MD to Waldo Taylor and understanding confirmed on 02/11/2024 14:19:59 (ET). Electronically Signed: Geovany Pruett MD at 14:21 EDT , Brain CT 02/11/24 13:52 IMPRESSION: Chronic involutional changes of the brain. Stable encephalomalacia involving the right temporal parietal lobes. N.B. : The above Results were Read Back by Geovany Pruett MD to Waldo Taylor and understanding confirmed on 02/11/2024 14:07:34 (ET). Electronically Signed: Geovany Pruett MD at 14:08 EDT , ADDENDUM: 02/11/24 1415 IMPRESSION: Chronic involutional changes of the brain. Stable encephalomalacia involving the right temporal parietal lobes. N.B. : The above Results were Read Back by Geovany Pruett MD to Waldo Taylor and understanding confirmed on 02/11/2024 14:07:34 (ET). Electronically Signed: Geovany Pruett MD at 14:08 EDT , Chest X-Ray 02/11/24 14:25 IMPRESSION: Slight increase in the pleural parenchymal changes at the left lung base. Electronically Signed: Geovany Pruett MD at 15:13 EDT , Discharge Plan Triage Chief Complaint: Dizziness ED Provider: Waldo Taylor Dx/Rx/DC Orders Clinical Impression: Dizziness, Ataxia Prescriptions: No Action ipratropium-albuterol 0.5 mg-3 mg(2.5 mg base)/3 mL solution for nebulization 3 ml inhalation 4X/DAY PRN (Reason: shortness of breath or wheezing) Patient Comments: INHALE 1 (ONE) VIAL VIA NEBULIZER UP TO FOUR TIMES DAILY NEEDED FOR FOR WHEEZING OR SHORTNESS OF BREATH zolpidem 5 MG tablet 5 mg PO QHS PRN (Reason: INSOMNIA ) lisinopril 40 MG tablet 40 mg PO DAILY ipratropium-albuterol 1 PUFF inhaler 1 puff inhalation 4X/DAY PRN (Reason: COPD) dorzolamide 2 % drops 1 drp ophthalmic (eye) TID latanoprost 0.005 % drops 1 drp ophthalmic (eye) QHS aspirin 81 MG tablet,chewable 81 mg PO DAILY 30 Days Qty: 30 2RF amlodipine 10 mg tablet 10 mg PO DAILY Qty: 90 3RF potassium chloride 20 mEq tablet extended release 20 meq PO DAILY Qty: 90 3RF apixaban 5 mg tablet 5 mg PO BID Qty: 60 11RF carvedilol 6.25 mg tablet 6.25 mg PO BID Qty: 180 3RF furosemide 20 mg tablet 20 mg PO DAILY Qty: 90 4RF atorvastatin 80 mg tablet 80 mg PO QHS Qty: 90 3RF Primary Care Provider: Torin Noyola Referrals: Torin Noyola MD [Primary Care Provider] - Print Language: Macedonian
--- NOTE | 2024-02-11 15:34 | NURSING ---
PCU OBS STOVALL ATAXIA
--- NOTE | 2024-02-11 15:40 | CM.ED ---
This SW and BEHZAD Love responded to the stroke code called for this patient. SWs supported patient's while patient was out of the room for testing. SWs asked questions to help patient's process through recent events leading to patient coming to the ED. SWs offered continued support as patient's needed. Patient's was appreciative. Betty Burns, COMPUTER SYSTEMS ADMINISTRATOR, PROFESSOR OF ENVIRONMENTAL STUDIES
--- NOTE | 2024-02-11 15:46 | HP.PCM.HOS_ITS ---
HPI - General General Date of Admission: 02/11/24 Date of Service: 02/11/24 Chief Complaint: Dizziness, visual changes, right-sided ataxia HPI Narrative ALEXIA MERIDA, is a 88 y/oM history of atrial fibrillation, COPD, CVA, CAD with history of CABG, hypertension, OTILIA, CHF with AICD who presented to [facility]02/11/2024 with sudden onset dizziness and right-sided neurological symptoms. He was a stroke alert in the ED. he was evaluated by teleneuro but given NIH of 2 and that he is on Eliquis and is compliant with this he was not deemed a candidate for thrombolytic. Hospitalist contacted for admission for further workup. Patient evaluated with family member at bedside. Reportedly patient was in his usual health and then around noon he was standing making a sandwich suddenly felt very dizzy/lightheaded. reports he was diaphoretic and so unsteady that she had to guide him to a chair. He was brought to the ED and reports he still has a dizzy/lightheaded feeling and feels like the vision in his right eye is blurry. Denies any chest pain or shortness of breath, no headache or fevers but did have sweats earlier, felt a little bit nauseous twice but that has resolved. No diarrhea or abdominal pain, no urinary symptoms, does not feel any numbness or weakness but does have a weak right lower extremity. [facility] Medical History (Updated 02/11/24 @ 15:31 by Mary Kay Diaz) Atherosclerotic heart disease of [place] coronary artery without angina pectoris Atrial fibrillation BiPAP (biphasic positive airway pressure) dependence Congestive heart failure (CHF) COPD (chronic obstructive pulmonary disease) CVA (cerebral vascular accident) Depression Myocardial infarct Pacemaker Rheumatoid arthritis Sleep apnea Home Medications ?Medication ?Instructions ?Recorded ?Last Taken ?Type lisinopril 40 mg tablet 40 mg PO DAILY BLOOD PRESSURE 09/15/13 03/25/23 History zolpidem 5 mg tablet 5 mg PO QHS PRN INSOMNIA 09/15/13 Unknown History ipratropium 20 mcg-albuterol 100 1 puff inhalation 4X/DAY PRN COPD 09/20/19 Unknown History mcg/actuation mist for inhalation amlodipine 10 mg tablet 10 mg PO DAILY BLOOD PRESSURE #90 12/11/22 03/25/23 Rx tabs dorzolamide 2 % eye drops 1 drp ophthalmic (eye) TID GLAUCOMA 03/25/23 03/24/23 History latanoprost 0.005 % eye drops 1 drp ophthalmic (eye) QHS 03/25/23 03/24/23 History GLAUCOOMA aspirin 81 mg chewable tablet 81 mg PO DAILY HEART HEALTH 30 03/26/23 Unknown Rx days #30 tabs ipratropium 0.5 mg-albuterol 3 mg 3 ml inhalation 4X/DAY PRN 04/15/23 Unknown History (2.5 mg base)/3 mL nebulization shortness of breath or wheezing soln potassium chloride 20 mEq 20 meq PO DAILY #90 tabs 04/15/23 Unknown Rx tablet,extended release apixaban 5 mg tablet 5 mg PO BID BLOOD THINNER #60 tabs 05/18/23 Unknown Rx carvedilol 6.25 mg tablet 6.25 mg PO BID HEART #180 tabs 05/18/23 Unknown Rx furosemide 20 mg tablet 20 mg PO DAILY EDEMA #90 tabs 07/07/23 Unknown Rx atorvastatin 80 mg tablet 80 mg PO QHS #90 TABLETS 02/10/24 Unknown Rx Allergy/AdvReac Type Severity Reaction Status Date / Time Penicillins (PCN) Allergy Rash Verified 02/11/24 13:56 Sulfa (Sulfonamide Allergy Rash Verified 02/11/24 13:56 Antibiotics) Family History Mother Myocardial infarction Sister Tuberculosis Father Peripheral artery disease Surgical History H/O coronary angioplasty History of cardiac catheterization History of cholecystectomy History of coronary artery stent placement History of left inguinal hernia repair History of total left knee replacement S/P CABG (coronary artery bypass graft) S/P implantation of automatic cardioverter/defibrillator (AICD) Social History Smoking Status: Former smoker how long ago did patient quit smokin alcohol intake: current alcohol intake frequency: a few times a week substance use type: does not use caffeine: Yes Type: coffee Number of servings: 6 ROS ROS Narrative General: Denies fever/chills but did have some sweats earlier HENT: Denies headache, denies stuffy nose, denies sore throat EYES: Patient feels his right vision is somewhat blurry Resp: Denies cough, denies shortness of breath Cardiac: Denies chest pain GI: Denies abdominal pain, denies changes in bowel, had a couple episodes of nausea throughout this. : Denies changes in urination Extremity: Denies swelling MSK: Denies weakness but on exam did have some right lower extremity weakness Neuro: Denies any numbness/tingling Heme: Denies any bleeding or bruising Skin: Denies rashes Psychiatric: No complaints voiced Vital Signs Vital Signs Vital Signs: 02/11/24 12:59 02/11/24 13:38 02/11/24 13:49 Temperature 97 F L Temperature Source Temporal Pulse Rate 80 69 74 Respiratory Rate 20 H 14 18 Blood Pressure 157/131 H 180/111 H 169/91 H Blood Pressure Mean 139 134 117 Pulse Ox 99 97 97 Oxygen Delivery Method Room Air Room Air Room Air 02/11/24 13:58 02/11/24 14:08 02/11/24 14:19 Temperature Temperature Source Pulse Rate 77 78 Respiratory Rate 23 H 22 H Blood Pressure 133/81 H 149/86 H Blood Pressure Mean 98 107 Pulse Ox 96 96 Oxygen Delivery Method Room Air Room Air Room Air 02/11/24 14:30 02/11/24 15:00 02/11/24 15:30 Temperature Temperature Source Pulse Rate 72 84 77 Respiratory Rate 18 18 15 Blood Pressure 166/81 H 163/79 H 149/81 H Blood Pressure Mean 109 107 103 Pulse Ox 98 96 98 Oxygen Delivery Method Room Air Room Air Room Air Weight Weight: 89.358 kg Body Mass Index (BMI) 29.9 Physical Exam Narrative General: Alert, seems to have difficulty answering questions, no apparent distress HEENT: Atraumatic, normocephalic Eyes: Anicteric, normal conjunctiva, extraocular movements intact, patient feels he has decreased vision in his right eye Neck: Supple Respiratory: Clear to auscultation bilaterally, normal respiratory effort Cardiovascular: Irregular GI: Soft, nontender, nondistended Extremities: No edema Musculoskeletal: Strength 5 out of 5 in right upper extremity, 5 out of 5 left upper extremity, 3 out of 5 right lower extremity, 5 out of 5 left lower extremity Neuro: No overt focal neurological deficits, cranial nerves II through XII intact, significant ataxia on finger-nose on right side, left side without difficulties Skin: Has a right sided arm lesion that supposed to be taken off on Thursday Psych: Cooperative Results Lab / Micro Data 02/11/24 13:50 02/11/24 13:50 Labs: Laboratory Results - last 24 hr 02/11/24 13:50: WBC 7.8, RBC 4.10 L, Hgb 12.5 L, Hct 38.5 L, MCV 93.9, MCH 30.5, MCHC 32.5, RDW Std Deviation 46.4 H, RDW Coeff of Theresa 13.6, Plt Count 216, MPV 10.0, Immature Gran % (Auto) 0.300, Neut % (Auto) 79.1 H, Lymph % (Auto) 9.6 L, [place] % (Auto) 6.6, Eos % (Auto) 3.8, Baso % (Auto) 0.6, Absolute Neuts (auto) 6.2, Absolute Lymphs (auto) 0.75 L, Nucleated RBC % 0, PT 16.3 H, INR 1.3, APTT 32.1, Sodium 138, Potassium 3.9, Chloride 106, Carbon Dioxide 22.0, Anion Gap 10, BUN 18, Creatinine 1.32 H, Estim Creat Clear Calc 42.82, Est GFR (MDRD) Af Amer 66, Est GFR (MDRD) Non-Af 55 L, BUN/Creatinine Ratio 13.6, Glucose 133 H, Calcium 9.0, Troponin I High Sens 12 02/11/24 14:05: POC Glucose 122 H Imaging Radiology Impression Head/Neck CTA 02/11/24 13:50 IMPRESSION: Atherosclerotic plaque formation at the origin of the left and right internal carotid arteries causing less than 50% stenosis. 8 mm calculus in the left submandibular gland. N.B. : The above Results were Read Back by Geovany Pruett MD to Waldo Taylor and understanding confirmed on 02/11/2024 14:19:59 (ET). Electronically Signed: Geovany Pruett MD at 14:21 EDT , ADDENDUM: 02/11/24 1428 IMPRESSION: Atherosclerotic plaque formation at the origin of the left and right internal carotid arteries causing less than 50% stenosis. 8 mm calculus in the left submandibular gland. N.B. : The above Results were Read Back by Geovany Pruett MD to Waldo Taylor and understanding confirmed on 02/11/2024 14:19:59 (ET). Electronically Signed: Geovany Pruett MD at 14:21 EDT , Brain CT 02/11/24 13:52 IMPRESSION: Chronic involutional changes of the brain. Stable encephalomalacia involving the right temporal parietal lobes. N.B. : The above Results were Read Back by Geovany Pruett MD to Waldo Taylor and understanding confirmed on 02/11/2024 14:07:34 (ET). Electronically Signed: Geovany Pruett MD at 14:08 EDT , ADDENDUM: 02/11/24 1415 IMPRESSION: Chronic involutional changes of the brain. Stable encephalomalacia involving the right temporal parietal lobes. N.B. : The above Results were Read Back by Geovany Pruett MD to Waldo Taylor and understanding confirmed on 02/11/2024 14:07:34 (ET). Electronically Signed: Geovany Pruett MD at 14:08 EDT , Chest X-Ray 02/11/24 14:25 IMPRESSION: Slight increase in the pleural parenchymal changes at the left lung base. Electronically Signed: Geovany Pruett MD at 15:13 EDT , Assessment & Plan Assessment/Plan (1) Stroke-like symptoms: PLAN: Plan # Dizziness/right sided upper extremity ataxia, right lower extremity weakness - stroke alert in ED -Admit to tele -CT head w/ chronic changes in ED -CTA head and neck with no occlusion - It is documented from previous admission in 2022 that we are unable to obtain MRI due to pacemaker -repeat CT head at 24 hr taya -NIH q4hr -asa, statin - patient has had previous negative bubble studies and is on full dose anticoagulation so only limited echo to assess for any masses or abnormalities on valves will be ordered -PT/OT/Speech eval -Teleneuro consult placed -Hold BP medications to allow for permissive hypertension for 24 hours unless SBP greater than 220 or DBP greater than 120 or until stroke is ruled out #Chronic heart failure with reduced ejection fraction -Last echocardiogram 09/2019 with EF of 35% and unable to assess diastolic dysfunction -Patient does have AICD placement as well but reports it is not working and has not for a long time -Continue beta-miguel and Lasix -Daily weights, I's and O's # history of previous CVA without deficits - management as above #History of coronary artery disease -With history of CABG -Continue aspirin, beta-miguel, statin #Hypertension -We will hold home medications aside from decreasing very small dose of beta- miguel to avoid patient going into A-fib with RVR #[id number] -appears to 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
--- NOTE | 2024-02-11 16:13 | ECHOLC_ITS ---
Version 2 Reason For Study: Assess Valves Procedure This was a limited 2D transthoracic echocardiogram. Contrast injection was performed. The study was technically difficult. Exam performed portable in patient room. Left Ventricle Mildly dilated left ventricle. Mild concentric left ventricular hypertrophy. Severe generalized LV hypokinesis. Estimated LVEF 25%. Unable to assess diastolic dysfunction due to arrhythmia. Right Ventricle ICD or pacer leads identified within the right ventricle. Atria The left atrium is severely enlarged. The right atrium is mildly enlarged. ICD or pacer leads identified within the right atrium. Mitral Valve Moderate to severe mitral annular calcification. Mild mitral valve regurgitation. Tricuspid Valve The tricuspid valve is not well visualized. Trivial tricuspid valve insufficiency. Unable to estimate RV systolic pressure due to insufficient tricuspid regurgitant envelope. Aortic Valve Moderately thickened aortic valve leaflets. Mild aortic valve stenosis. Pulmonic Valve The pulmonic valve is not well visualized. Great Vessels Normal sized aortic root. Pericardium/Pleural No pericardial effusion. Medication Diluted definity 3ml given slow IV push to enhance endocardial definition. MMode/2D Measurements & Calculations LVIDd: 5.7 cm IVSd: 1.1 cm LVOT diam: 2.2 cm LVIDs: 4.7 cm LVPWd: 1.2 cm FS: 18.6 % LVOT area: 3.8 cm2 LA dimension: 6.0 cm LAV(MOD-sp4): 154.4 ml LVAd ap4: 46.2 cm2 LVLd ap4: 8.1 cm EDV(MOD-sp4): 222.0 ml EDV(sp4-el): 225.3 ml LVAs ap4: 40.1 cm2 LVLs ap4: 7.8 cm ESV(MOD-sp4): 169.3 ml ESV(sp4-el): 174.7 ml EF(MOD-sp4): 23.7 % EF(sp4-el): 22.5 % SV(MOD-sp4): 52.7 ml SV(sp4-el): 50.6 ml LA A4 area: 37.5 cm2 Doppler Measurements & Calculations MV V2 max: 113.9 cm/sec Ao V2 max: 217.5 cm/sec LV V1 max: 86.7 cm/sec MV max P.2 mmHg Ao max P.9 mmHg LV V1 max P.0 mmHg MV V2 mean: 51.7 cm/sec Ao V2 mean: 140.3 cm/sec LV V1 mean P.6 mmHg MV mean P.4 mmHg Ao mean P.2 mmHg LV V1 mean: 58.1 cm/sec MV V2 VTI: 29.0 cm Ao V2 VTI: 36.9 cm LV V1 VTI: 15.1 cm AV (velocity ratio): 0.41 MVA(VTI): 2.0 cm2 ABHIJEET(I,D): 1.6 cm2 ABHIJEET(V,D): 1.5 cm2 SV(LVOT): 57.6 ml ECHO/Echo Limited w/Contrast Interpretation Summary Mildly dilated left ventricle. Mild left ventricular concentric hypertrophy. Severe generalized LV hypokinesis. Estimated LVEF 25%. The left atrium is severely enlarged. The right atrium is mildly enlarged. Moderate to severe mitral annular calcification. Mild mitral valve regurgitatio n. Moderately thickened aortic valve leaflets. Mild aortic valve stenosis. The study was technically difficult. Ordering Physician: Karlie Roberson Performed By: Kenroy Franks RCS
[2024-02-11 18:09] LABS: Magnesium 2.1 mg/dL (1.6-2.6)
[2024-02-11] MEDS: APIXABAN 5 MG TABLET PO (21:43)
[2024-02-11] MEDS: Atorvastatin Calcium 80 MG Tablet PO (21:43)
[2024-02-11 23:57] LABS: Bacteria 0 SEEN /hpf (None Seen); Mucous, Urine 0 SEEN /hpf (<or=2+); White Blood Cells 0 SEEN /hpf (0-5)
[2024-02-11 23:59] LABS: Color, Urine Yellow (Yellow); Glucose, Dipstick Normal (Normal); Ketone-Dipstick 5 mg/dl (Negative); Leukocyte Esterase-Dipstick Negative /ul (Negative); Nitrite-Dipstick Negative (Negative); Occult Blood-Urine 250 /ul (Negative); Protein-Dipstick 30 mg/dl (Negative); Specific Gravity, Urine 1.015 (1.002-1.030); Urine Bilirubin Dipstick Negative (Negative); Urine Clarity Clear (Clear); Urine Urobilinogen Normal (Normal)
[2024-02-12] VITALS (11 sets, daily range): BP systolic 153–171; BP diastolic 87–98; PULSE 70–80; RESP 18; TEMP 36.2–36.8; O2SAT 93–98; BMI 28.3
[2024-02-12 00:25] LABS: Red Blood Cells-Urine 10-25 SEEN /hpf (0-5); Squamous Epithelial Cells - UA 0-5 SEEN /hpf (0-5)
[2024-02-12] MEDS: 0.9% Saline Lock 10 ML Syringe IV (03:46)
[2024-02-12 06:14] LABS: Absolute Lymphocyte Count 0.88 X10^3/uL (0.83-4.51); Absolute Neutrophil Count 5.6 X10^3/uL (2.0-7.7); Basophil# 0.05 X10^3/uL; Basophil% 0.7 % (0-1); Eosinophil# 0.09 X10^3/uL; Eosinophils% 1.2 % (0-5); Hematocrit 38.7 % (40-54); Hemoglobin 12.5 g/dL (13.0-16.5); Lymphocyte # 0.88 X10^3/ul (0.83-4.51); Mean Corp Hgb Conc 32.3 g/dL (32-36); Mean Corpuscular Hgb 30.8 pg (27.0-32.0); Mean Corpuscular Volume 95.3 fL (80-94); Monocyte# 0.69 X10^3/uL; Monocyte% 9.4 % (0-10); NRBC Flagged by Analyzer 0 % (0-5); Neutrophil # 5.59 X10^3/uL (2.7-7.7); Neutrophil % 76.3 % (47-70); POSITIVE COUNT YES; Platelet Count 159 K/mm3 (150-450); RBC Distribution Width CV 13.9 % (11.6-14.6); RBC Distribution Width SD 48.5 fl (35.1-43.9); Red Blood Count 4.06 M/mm3 (4.6-6.2); White Blood Count 7.3 K/mm3 (4.4-11.0)
[2024-02-12 06:36] LABS: Differential Indicated SCAN CRITERIA MET
[2024-02-12 07:17] LABS: Differential Comment SCANNED
[2024-02-12] MEDS: APIXABAN 5 MG TABLET PO ×2 (09:01→21:00)
[2024-02-12] MEDS: Aspirin 81 MG TAB.CHEW PO (09:01)
[2024-02-12 09:07] LABS: Anion Gap 8 (5-15); BUN 15 mg/dL (7-18); BUN/Creat Ratio 11.7 RATIO (10-20); Calcium,Total 9.5 mg/dL (8.5-10.1); Chloride 105 mmol/L (98-107); Cholesterol 111 mg/dL (200); Creatinine, Serum 1.28 mg/dL (0.70-1.30); EST Glomerular Filtration Rate 56 mL/min (>60); Est Glom Filt Rate - Afr Amer 68 mL/min (>60); Estimated Creatinine Clearance 47.15 ml/min; Glucose 130 mg/dL (74-106); High Density Lipoprotein 56 mg/dL; Magnesium 2.2 mg/dL (1.6-2.6); Potassium 3.6 mmol/L (3.5-5.1); Sodium Level 138 mmol/L (136-145); Triglycerides 104 mg/dL; Very Low Density Lipoprotein 21 mg/dL (5-40)
--- NOTE | 2024-02-12 10:52 | CASEMGMT ---
Social Work SW met with pt and completed PHQ9 depression screen. Pt score of 6 indicating mild depression. Pt stating he had no depressive feelings prior to stroke, but at this time is experiencing some symptoms of depression as a result of the stroke and fear of the repercussions. SW educated pt to correlation between stroke and depression and encouraged pt to monitor mood and if things do not improve to speak with PCP. SW provided pt with written list of counseling services and pt was appreciative of this. CONNER Manuel
[2024-02-12] MEDS: Metoprolol Tartrate 25 MG Tablet 12.5 MG PO (10:54)
--- NOTE | 2024-02-12 11:30 | CON.PCM.NE_ITS ---
Assessment and Plan: Neuro Assessment/Plan ALEXIA MERIDA, is a 88 M with afib on eliquis, cad s/p pci and cabg on ASA and AICD HTN , HLD and hx of strokes unclear of symptoms who presents with sudden onset dizziness and right sided weakness. He was at home, getting ready to eat and all and all of sudden felt dizzy which he has a hard time describing and right side felt weak. CT shows old right mca stroke. CTA unrevealing. On exam NIH 0 but right side I can see does appear to be weaker than left. Most likely this was a stroke, he cannot get MRI due to AICD. Management doesnt change regardless of repeat imaging or MRI, cont eliquis and ASA, cont high intensity statin and cont CV risk factor optimzation. Follow up with PCP on dc. No furhter recs. Diagnosis: - Stroke Plan: - Management doesnt change regardless of repeat imaging or MRI, cont eliquis and ASA, cont high intensity statin and cont CV risk factor optimization. Follow up with PCP on dc. No further recs. Neuro to sign off. I personally attended this patient and spent a total time of 45 minutes evaluating this patient including clinical assessment, review of chart, medical history imaging, and determining appropriate treatment and workup. HPI Consult Data Date of Consult: 02/12/24 HPI Narrative HPI Narrative: ALEXIA MERIDA, is a 88 M with afib on eliquis, cad s/p pci and cabg on ASA and AICD HTN , HLD and hx of strokes unclear of symptoms who presents with sudden onset dizziness and right sided weakness. He was at home, getting ready to eat and all and all of sudden felt dizzy which he has a hard time describing and right side felt weak. CT shows old right mca stroke. CTA unrevealing. On exam NIH 0 but right side I can see does appear to be weaker than left. Most likely this was a stroke, he cannot get MRI due to AICD. Management doesnt change regardless of repeat imaging or MRI, cont eliquis and ASA, cont high intensity statin and cont CV risk factor optimzation. Follow up with PCP on dc. No furhter recs. [facility] Medical History (Updated 02/11/24 @ 15:31 by Mary Kay Diaz) COPD (chronic obstructive pulmonary disease) Myocardial infarct Depression Rheumatoid arthritis BiPAP (biphasic positive airway pressure) dependence Sleep apnea Pacemaker Congestive heart failure (CHF) Atherosclerotic heart disease of [place] coronary artery without angina pectoris Atrial fibrillation CVA (cerebral vascular accident) Home Medications ?Medication ?Instructions ?Recorded ?Last Taken ?Type lisinopril 40 mg tablet 40 mg PO DAILY BLOOD PRESSURE 09/15/13 03/25/23 History zolpidem 5 mg tablet 5 mg PO QHS PRN INSOMNIA 09/15/13 Unknown History ipratropium 20 mcg-albuterol 100 1 puff inhalation 4X/DAY PRN COPD 09/20/19 Unknown History mcg/actuation mist for inhalation amlodipine 10 mg tablet 10 mg PO DAILY BLOOD PRESSURE #90 12/11/22 03/25/23 Rx tabs dorzolamide 2 % eye drops 1 drp ophthalmic (eye) TID GLAUCOMA 03/25/23 03/24/23 History latanoprost 0.005 % eye drops 1 drp ophthalmic (eye) QHS 03/25/23 03/24/23 History GLAUCOOMA aspirin 81 mg chewable tablet 81 mg PO DAILY HEART HEALTH 30 03/26/23 Unknown Rx days #30 tabs ipratropium 0.5 mg-albuterol 3 mg 3 ml inhalation 4X/DAY PRN 04/15/23 Unknown History (2.5 mg base)/3 mL nebulization shortness of breath or wheezing soln potassium chloride 20 mEq 20 meq PO DAILY #90 tabs 04/15/23 Unknown Rx tablet,extended release apixaban 5 mg tablet 5 mg PO BID BLOOD THINNER #60 tabs 05/18/23 Unknown Rx carvedilol 6.25 mg tablet 6.25 mg PO BID HEART #180 tabs 05/18/23 Unknown Rx furosemide 20 mg tablet 20 mg PO DAILY EDEMA #90 tabs 07/07/23 Unknown Rx atorvastatin 80 mg tablet 80 mg PO QHS #90 TABLETS 02/10/24 Unknown Rx Allergy/AdvReac Type Severity Reaction Status Date / Time Penicillins (PCN) Allergy Rash Verified 02/11/24 13:56 Sulfa (Sulfonamide Allergy Rash Verified 02/11/24 13:56 Antibiotics) Family History Mother Myocardial infarction Sister Tuberculosis Father Peripheral artery disease Surgical History History of coronary artery stent placement History of total left knee replacement History of left inguinal hernia repair History of cholecystectomy S/P CABG (coronary artery bypass graft) S/P implantation of automatic cardioverter/defibrillator (AICD) H/O coronary angioplasty History of cardiac catheterization Social History Smoking Status: Former smoker how long ago did patient quit smokin alcohol intake: current alcohol intake frequency: a few times a week substance use type: does not use caffeine: Yes Type: coffee Number of servings: 6 Vital Signs Vital Signs Vital Signs: 02/11/24 12:59 02/11/24 13:38 02/11/24 13:49 Temperature 97 F L Temperature Source Temporal Pulse Rate 80 69 74 Pulse Strength Respiratory Rate 20 H 14 18 Respiratory Effort Respiratory Depth Respiratory Pattern Blood Pressure 157/131 H 180/111 H 169/91 H Blood Pressure Mean 139 134 117 Blood Pressure Source Blood Pressure Position Blood Pressure Location Pulse Ox 99 97 97 Oxygen Delivery Method Room Air Room Air Room Air 02/11/24 13:58 02/11/24 14:08 02/11/24 14:19 Temperature Temperature Source Pulse Rate 77 78 Pulse Strength Respiratory Rate 23 H 22 H Respiratory Effort Respiratory Depth Respiratory Pattern Blood Pressure 133/81 H 149/86 H Blood Pressure Mean 98 107 Blood Pressure Source Blood Pressure Position Blood Pressure Location Pulse Ox 96 96 Oxygen Delivery Method Room Air Room Air Room Air 02/11/24 14:30 02/11/24 15:00 02/11/24 15:30 Temperature Temperature Source Pulse Rate 72 84 77 Pulse Strength Respiratory Rate 18 18 15 Respiratory Effort Respiratory Depth Respiratory Pattern Blood Pressure 166/81 H 163/79 H 149/81 H Blood Pressure Mean 109 107 103 Blood Pressure Source Blood Pressure Position Blood Pressure Location Pulse Ox 98 96 98 Oxygen Delivery Method Room Air Room Air Room Air 02/11/24 15:47 02/11/24 16:00 02/11/24 16:30 Temperature 97 F L 97.5 F L Temperature Source Oral Pulse Rate 84 79 82 Pulse Strength Respiratory Rate 17 12 18 Respiratory Effort Respiratory Depth Respiratory Pattern Blood Pressure 149/81 H 169/93 H 155/107 H Blood Pressure Mean 103 118 123 Blood Pressure Source Monitor Blood Pressure Position Semi-Fowlers Blood Pressure Location Left Forearm Pulse Ox 98 97 99 Oxygen Delivery Method Room Air Room Air 02/11/24 16:30 02/11/24 17:05 02/11/24 17:51 Temperature 97.6 F L Temperature Source Oral Pulse Rate 97 Pulse Strength Respiratory Rate 18 Respiratory Effort Normal Non-Labored Respiratory Depth Normal Respiratory Pattern Normal Blood Pressure 152/91 H Blood Pressure Mean 111 Blood Pressure Source Monitor Blood Pressure Position Sitting Blood Pressure Location Right Arm Pulse Ox 99 95 98 Oxygen Delivery Method Room Air Room Air Room Air 02/11/24 19:59 02/11/24 21:39 02/11/24 21:40 Temperature 98.3 F Temperature Source Oral Pulse Rate 65 Pulse Strength Normal (2+) Respiratory Rate 18 Respiratory Effort Normal Non-Labored Respiratory Depth Normal Respiratory Pattern Normal Blood Pressure 137/85 H Blood Pressure Mean 102 Blood Pressure Source Monitor Blood Pressure Position Semi-Fowlers Blood Pressure Location Left Arm Pulse Ox 94 Oxygen Delivery Method Room Air Room Air 02/11/24 21:44 02/11/24 23:35 02/12/24 00:50 Temperature 98.7 F Temperature Source Oral Pulse Rate 65 65 Pulse Strength Respiratory Rate 18 Respiratory Effort Normal Non-Labored Respiratory Depth Normal Respiratory Pattern Normal Blood Pressure 137/85 H 144/87 H Blood Pressure Mean 106 Blood Pressure Source Monitor Blood Pressure Position Semi-Fowlers Blood Pressure Location Left Arm Pulse Ox 97 96 Oxygen Delivery Method Room Air CPAP 02/12/24 03:37 02/12/24 06:11 02/12/24 08:12 Temperature 98.0 F 98.3 F Temperature Source Oral Oral Pulse Rate 80 71 Pulse Strength Normal (2+) Respiratory Rate 18 18 Respiratory Effort Respiratory Depth Respiratory Pattern Blood Pressure 162/97 H 153/92 H Blood Pressure Mean 118 112 Blood Pressure Source Monitor Monitor Blood Pressure Position Semi-Fowlers Supine Blood Pressure Location Right Arm Right Arm Pulse Ox 97 98 Oxygen Delivery Method Room Air Room Air 02/12/24 08:12 02/12/24 09:17 02/12/24 10:00 Temperature 97.6 F L Temperature Source Temporal Pulse Rate 80 Pulse Strength Respiratory Rate 18 Respiratory Effort Normal Non-Labored Respiratory Depth Normal Respiratory Pattern Normal Blood Pressure 170/98 H Blood Pressure Mean 122 Blood Pressure Source Monitor Blood Pressure Position Sitting Blood Pressure Location Left Arm Pulse Ox 93 97 Oxygen Delivery Method CPAP Room Air 02/12/24 10:01 02/12/24 10:12 02/12/24 10:54 Temperature Temperature Source Pulse Rate 80 Pulse Strength Respiratory Rate Respiratory Effort Respiratory Depth Respiratory Pattern Blood Pressure Blood Pressure Mean Blood Pressure Source Blood Pressure Position Blood Pressure Location Pulse Ox 97 97 Oxygen Delivery Method Room Air Weight Weight: 92 kg Body Mass Index (BMI) 28.3 NIHSS NIHSS Nursing Documentation NIHSS Nursing Documentation: NIH Stroke Scale Start: 02/11/24 13:38 Freq: Status: Discharge Protocol: Activity Type Activity Date Activity User E-sign Co-sign Detail Recorded Client Recorded Date Recorded By Document 02/11/24 13:38 ET [id number] 02/11/24 13:39 ET 02/11/24 13:38 NIH Stroke Scale [NIHSS] A score of 0 is normal or asymptomatic . Total possible score is 42. Inpatient: RN or Physician to activate a stroke alert for onset of new stroke symptoms or with NIHSS increase >/= 3 points. Following change in neurological status, NIHSS will be performed per physician order or more frequently PRN. -1a. Level of Consciousness Alert; keenly responsive -1b. LOC Questions Answers BOTH questions correctly. -1c. LOC Commands Performs both tasks correctly . -2. Best Gaze Normal -3. Visual No visual loss -4. Facial Palsy Minor paralysis (flattened nasolabial fold , asymmetry on smiling) -5a. Left Arm No drift; arm holds 90 (or 45 ) degrees for full 10 seconds -5b. Right Arm No drift; arm holds 90 (or 45 ) degrees for full 10 seconds -6a. Left Leg No drift; leg holds 30-degree position for full 5 seconds -6b. Right Leg No drift; leg holds 30-degree position for full 5 seconds -7. Limb Ataxia Present in 1 limb -8. Sensory Normal; no sensory loss -9. Best Language No aphasia; normal -10. Dysarthria Normal -11. Extinction and Inattention No abnormality -Total 2 Query Text:A score of 0 is normal or asymptomatic. Total possible score is 42 . ED: Notify Physician for NIHSS increase by > / = 3 points. Inpatient: RN or Physician to activate a stroke alert for NIHSS increase of > / = 3 points. NIHSS: Ischemic Stroke/TIA Start: 02/11/24 16:18 Text: For PCU Patients: NIH and Neuro Check every 4 Status: Active hours, PRN and with change in RN caregiver. Freq: [id number] Protocol: Activity Type Activity Date Activity User E-sign Co-sign Detail Recorded Client Recorded Date Recorded By Document 02/12/24 10:00 [id number] 02/12/24 11:09 [id number] 02/12/24 10:00 -1a. Level of Consciousness Alert; keenly responsive -1b. LOC Questions Answers BOTH questions correctly. -1c. LOC Commands Performs both tasks correctly . -2. Best Gaze Normal -3. Visual No visual loss -4. Facial Palsy Normal symmetrical movements -5a. Left Arm No drift; arm holds 90 (or 45 ) degrees for full 10 seconds -5b. Right Arm No drift; arm holds 90 (or 45 ) degrees for full 10 seconds -6a. Left Leg No drift; leg holds 30-degree position for full 5 seconds -6b. Right Leg No drift; leg holds 30-degree position for full 5 seconds -7. Limb Ataxia Absent -8. Sensory Normal; no sensory loss -9. Best Language No aphasia; normal -10. Dysarthria Normal -11. Extinction and Inattention No abnormality -Total 0 Query Text:A score of 0 is normal or asymptomatic. Total possible score is 42 . ED: Notify Physician for NIHSS increase by > / = 3 points. Inpatient: RN or Physician to activate a stroke alert for NIHSS increase of > / = 3 points. Coma Scale [Assess] -Eye Opening Spontaneous -Motor Obeys Commands -Verbal Oriented [Total] -Coma Scale Total 15 Physical Exam Narrative Physical Exam: - General: NAD, pleasant, cooperative, well nourished, well developed - Head/Eyes: Atraumatic, normocephalic, clear cornea, normal sclera/conjunctive - Neuro: ? Mental Status: AAOX4 & following simple commands. ? Speech: Clear and fluent with good repetition, comprehension, & naming. No aphasia or dysarthria ? CN II: Visual mathews are full to confrontation. ? CN III, IV, : EOMI, no gaze preference, no nystagmus, no ptosis ? CN V: Facial sensation is intact to light touch throughout. ? CN VII: Face is symmetric with normal eye closure and smile. ? CN VII: Hearing is grossly normal to conversational speech. ? CN XI: Head turning, and shoulder shrug are intact. ? Motor: Able to sustain all limbs ? Sensation: Normal to light touch bilaterally. ? Coordination: Normal FTN & HTS. No abn movements seen. Lab / Micro Data 02/12/24 04:45 02/12/24 08:20 Labs: Laboratory Results - last 24 hr 02/11/24 13:50: WBC 7.8, RBC 4.10 L, Hgb 12.5 L, Hct 38.5 L, MCV 93.9, MCH 30.5, MCHC 32.5, RDW Std Deviation 46.4 H, RDW Coeff of Theresa 13.6, Plt Count 216, MPV 10.0, Immature Gran % (Auto) 0.300, Neut % (Auto) 79.1 H, Lymph % (Auto) 9.6 L, Maries % (Auto) 6.6, Eos % (Auto) 3.8, Baso % (Auto) 0.6, Absolute Neuts (auto) 6.2, Absolute Lymphs (auto) 0.75 L, Nucleated RBC % 0, PT 16.3 H, INR 1.3, APTT 32.1, Sodium 138, Potassium 3.9, Chloride 106, Carbon Dioxide 22.0, Anion Gap 10, BUN 18, Creatinine 1.32 H, Estim Creat Clear Calc 42.82, Est GFR (MDRD) Af Amer 66, Est GFR (MDRD) Non-Af 55 L, BUN/Creatinine Ratio 13.6, Glucose 133 H, Calcium 9.0, Magnesium 2.1, Troponin I High Sens 12 02/11/24 14:05: POC Glucose 122 H 02/11/24 23:45: Urine Color Yellow, Urine Clarity Clear, Urine pH 6.0, Ur Specific [place] 1.015, Urine Protein 30 H, Urine Glucose (UA) Normal, Urine Ketones 5 H, Urine Occult Blood 250 H, Urine Nitrite Negative, Urine Bilirubin Negative, Urine Urobilinogen Normal, Ur Leukocyte Esterase Negative, Urine RBC 10-25 SEEN, Urine WBC 0 SEEN, Ur Squamous Epith Cells 0-5 SEEN, Urine Bacteria 0 SEEN, Urine Mucus 0 SEEN 02/12/24 04:45: WBC 7.3, RBC 4.06 L, Hgb 12.5 L, Hct 38.7 L, MCV 95.3 H, MCH 30.8, MCHC 32.3, RDW Std Deviation 48.5 H, RDW Coeff of Theresa 13.9, Plt Count 159, MPV 12.0, Immature Gran % (Auto) 0.400, Neut % (Auto) 76.3 H, Lymph % (Auto) 12.0 L, Maries % (Auto) 9.4, Eos % (Auto) 1.2, Baso % (Auto) 0.7, Absolute Neuts (auto) 5.6, Absolute Lymphs (auto) 0.88, Nucleated RBC % 0, Differential Comment SCANNED, Sodium Cancelled, Potassium Cancelled, Chloride Cancelled, Carbon Dioxide Cancelled, Anion Gap Cancelled, BUN Cancelled, Creatinine Cancelled, Estim Creat Clear Calc Cancelled, Est GFR (MDRD) Af Amer Cancelled, Est GFR (MDRD) Non-Af Cancelled, BUN/Creatinine Ratio Cancelled, Glucose Cancelled, Calcium Cancelled, Magnesium Cancelled, Triglycerides Cancelled, Cholesterol Cancelled, LDL Cholesterol Cancelled, VLDL Cholesterol Cancelled, HDL Cholesterol Cancelled, TSH Cancelled 02/12/24 08:20: Sodium 138, Potassium 3.6, Chloride 105, Carbon Dioxide 25.0, Anion Gap 8, BUN 15, Creatinine 1.28, Estim Creat Clear Calc 47.15, Est GFR (MDRD) Af Amer 68, Est GFR (MDRD) Non-Af 56 L, BUN/Creatinine Ratio 11.7, G lucose 130 H, Calcium 9.5, Magnesium 2.2, Triglycerides 104, Cholesterol 111, LDL Cholesterol 34, VLDL Cholesterol 21, HDL Cholesterol 56, TSH 4.170 H Imaging Radiology Impression Head/Neck CTA 02/11/24 13:50 IMPRESSION: Atherosclerotic plaque formation at the origin of the left and right internal carotid arteries causing less than 50% stenosis. 8 mm calculus in the left submandibular gland. N.B. : The above Results were Read Back by Geovany Pruett MD to Waldo Taylor and understanding confirmed on 02/11/2024 14:19:59 (ET). Electronically Signed: Geovany Pruett MD at 14:21 EDT , ADDENDUM: 02/11/24 1428 IMPRESSION: Atherosclerotic plaque formation at the origin of the left and right internal carotid arteries causing less than 50% stenosis. 8 mm calculus in the left submandibular gland. N.B. : The above Results were Read Back by Geovany Pruett MD to Waldo Taylor and understanding confirmed on 02/11/2024 14:19:59 (ET). Electronically Signed: Geovany Pruett MD at 14:21 EDT , Brain CT 02/11/24 13:52 IMPRESSION: Chronic involutional changes of the brain. Stable encephalomalacia involving the right temporal parietal lobes. N.B. : The above Results were Read Back by Geovany Pruett MD to Waldo Taylor and understanding confirmed on 02/11/2024 14:07:34 (ET). Electronically Signed: Geovany Pruett MD at 14:08 EDT , ADDENDUM: 02/11/24 1415 IMPRESSION: Chronic involutional changes of the brain. Stable encephalomalacia involving the right temporal parietal lobes. N.B. : The above Results were Read Back by Geovany Pruett MD to Waldo Taylor and understanding confirmed on 02/11/2024 14:07:34 (ET). Electronically Signed: Geovany Pruett MD at 14:08 EDT , Chest X-Ray 02/11/24 14:25 IMPRESSION: Slight increase in the pleural parenchymal changes at the left lung base. Electronically Signed: Geovany Pruett MD at 15:13 EDT , Active Medications Active Medications Active Medications: Current Medications Generic Name Dose Route Start Last Admin Trade Name Freq PRN Reason Stop Dose Admin Acetaminophen 650 mg 02/11/24 16:18 Acetaminophen 325 Mg Tablet PO Q6H PRN PRN Pain 1-10 Or Fever >100.7 Albuterol Sulfate 2.5 mg 02/11/24 16:18 Albuterol 2.5 Mg/3 Ml Vial.Neb. INHALATION Q2H PRN PRN SOB &/OR WHEEZING Apixaban 5 mg 02/11/24 22:00 02/12/24 09:01 Apixaban 5 Mg Tablet PO 5 mg BID CHUCK Administration Aspirin 81 mg 02/12/24 08:00 02/12/24 09:01 Aspirin 81 Mg Tab.Chew PO 81 mg BREAKFAST CHUCK Administration Atorvastatin Calcium 80 mg 02/11/24 22:00 02/11/24 21:43 Atorvastatin Calcium 80 Mg Tablet PO 80 mg QHS CHUCK Administration Dorzolamide HCl 1 drp 02/11/24 22:00 Dorzolamide 2% 10ml Bottle OPHTHALMIC TID CHUCK Hydralazine HCl 5 mg 02/11/24 16:18 Hydralazine 20 Mg/Ml Vial IV 02/12/24 16:18 Q30M PRN maintain BP parameters with HR <60 Labetalol HCl 10 - 20 mg 02/11/24 16:18 Labetalol (Prefilled) 20 Mg/4 Ml Vial IV 02/12/24 16:18 Q10M PRN PRN maintain BP parameters with HR >/=60 Latanoprost 1 drp 02/11/24 22:00 02/11/24 21:46 Latanoprost 0.005% 1 Bottle OPHTHALMIC Not Given QHS [facility] Melatonin 3 mg 02/11/24 16:18 Melatonin 3 Mg Tablet PO QHS PRN PRN INSOMNIA Metoprolol Tartrate 12.5 mg 02/11/24 22:00 02/12/24 10:54 Metoprolol Tartrate 25 Mg Tablet PO 12.5 mg BID CHUCK Administration Protocol Ondansetron HCl 4 mg 02/11/24 16:18 Ondansetron 4 Mg/2 Ml Vial IV Q8H PRN PRN NAUSEA/VOMITING Senna/Docusate Sodium 2 tablet 02/11/24 16:18 Senna/Docusate Sodium 1 Tablet PO BID PRN PRN Constipation Sodium Chloride 10 - 40 ml 02/11/24 16:22 02/12/24 03:46 0.9% Saline Lock 10 Ml Syringe IV 10 ml UD PRN Administration SALINE FLUSH
--- NOTE | 2024-02-12 11:41 | CASEMGMT ---
Therapy is recommending that patient go to Acute Rehab. SW met with patient and his . SW introduced self and role at [facility]. SW explained therapy's recommendations. Patient and his were agreeable to this plan. They declined a list as they want patient to stay in [place]. SW explained that patient's insurance will need to approve patient. SW explained as long as pre-cert is received the earliest patient could go would be Thursday. SW made a referral to Rehab and they can take patient Thursday pending pre-cert. SW did go back to patient's room and provide them with a Rehab pamphlet and the visitation policy letter from Rehab. Plan: d/c to [facility] Acute Rehab pending pre-cert. Jane GARZA
--- NOTE | 2024-02-12 12:53 | CHAPLAIN ---
Type of Pastoral Visit _x__ Initial Visit ___ Follow-up Visit ___ On-call Visit ___ General Patient Visit ___ Spiritual Assessment ___ Family Conference ___ Bereavement ___ Rapid Response ___ Code Blue ___ Other (describe below) Pastoral Care Referral From _x__ Patient ___ Family ___ Nurse ___ Physician ___ Pin Sorter And Bagger ___ Tram Inspector ___ Other (describe below) Sacrament/Intervention ___ Active listening ___ Anointing ___ Muslim ___ Bereavement ___ Communion ___ [place]ubia exploration ___ ___ Life review ___ Prayer ___ Reconciliation ___ Sacrament of Sick _x__ Supportive presence ___ Wedding ___ Other (describe below) Pastoral Comments follow up to patient who was a stroke alert yesterday in the ED; spouse is with him as patient is resting in bed; pt had a new evaluation just prior to this visit; pt states that he is feeling better and has minimal impact though noticeable in his one side; pt and spouse deny any further needs at this time but express thanks for the offer
--- NOTE | 2024-02-12 13:00 | CT_ITS ---
STUDY: CT BRAIN WITHOUT CONTRAST REASON FOR EXAM: Male, 88 years old. cva f/u RADIATION DOSAGE (If Supplied By Facility): CTDIvol = ( 44.99 ) mGy, DLP = ( 846.73 ) mGycm TECHNIQUE: Transaxial CT imaging of the brain was performed without administration of intravenous contrast material. Individualized dose optimization techniques were used for this CT. COMPARISON: No relevant priors. FINDINGS: Normal soft tissue structures. Normal calvarium. There is disproportionate enlargement of the lateral and third ventricles, as compared to the extra-axial spaces. The findings suggest normal pressure hydrocephalus (NPH). There are areas of decreased attenuation within the white matter tracts of the supratentorial brain, consistent with microvascular disease changes. Stable encephalomalacia involving the right temporal parietal lobes in keeping with prior ischemic stroke. Normal basal ganglia and thalami. Normal brainstem. There is mild cerebellar atrophy. There is no intracranial hemorrhage. There are no findings of an acute ischemic infarction. Normal visualized paranasal sinuses. CT/Brain/Head without Contrast IMPRESSION: Findings suggestive of normal pressure hydrocephalus. Stable examination. Electronically Signed: Geovany Pruett MD at 13:44 EDT ,
[2024-02-12] MEDS: Spironolactone 25 MG Tablet 12.5 MG PO (15:26)
[2024-02-12] MEDS: Empagliflozin 10 MG Tablet PO (15:26)
--- NOTE | 2024-02-12 15:37 | PN.HOSP_ITS ---
Reason for Visit Reason for Visit: Dizziness, visual changes, right-sided ataxia Subjective Subjective Patient is an 88-year-old white male with a history of stroke who came in with sudden onset dizziness, visual changes and right-sided ataxia. He is chronically on aspirin and apixaban and compliant. He has a known cardiomyopathy and follows with the heart group. He was a stroke alert on presentation in the emergency department at [facility] on 02/11/2024 and was evaluated by telemetry neuro. Initial NIH was 2 but he was not a candidate for thrombolytic due to his Eliquis use. He reported that he was feeling well until around noon at which time he was standing making a sandwich and felt sudden onset of dizziness/lightheadedness. His reports that he was diaphoretic and was so unsteady that she had to get into the chair. Upon presentation he was still complaining of feeling dizzy/lightheaded and that his vision was blurry in his right eye. He did have some slight nausea and sweats earlier but that had since resolved as well. Vital signs on presentation showed a temperature of 97, heart rate 80, blood pressure 157/131, respiratory was 20 and pulse ox was 99% on room air. CBC was overtly unremarkable other than some mild chronic anemia with a hemoglobin of 12.5. Coags were slightly abnormal which was expected given Eliquis use. Chemistry panel was unremarkable other than some mild CKD which appeared to be relatively stable. His glucose was 133. Magnesium was within normal limits. Troponin was normal at 12. We have obtained a lipid panel and he has a total cholesterol of 111/LDL 34/HDL 56 Integra side level of 104. TSH was 4.17 consistent with euthyroid sick syndrome. His UA showed some occult blood but was not consistent with infection. CT of the brain was unremarkable other than stable encephalomalacia of the right temporal and parietal lobes and chronic involutional changes. CTA of the head and neck showed no significant atherosclerotic disease with plaque formation less than 50% in bilateral internal carotid arteries. Chest x-ray shows no acute changes. The patient was admitted to PCU with stroke protocol per recommendations of [facility] teleneurology as there was high suspicion of stroke on presentation given his symptoms. NIH is have been followed since that point in time and most recently are 0. Repeat CT shows stable changes. Echocardiogram was performed and shows an EF of 25% with a severely enlarged left atrium and a mildly enlarged right atrium with mild to severe mitral annular calcification with mild mitral valve regurgitation and mild aortic valve stenosis. His EF is slightly reduced from his most recent echocardiogram from 2019. He does follow with cardiology on a regular basis. Given his slight change in EF we did alter his medication regimen for goal-directed therapy and continued his Coreg but transition him to Entresto, started low-dose Aldactone and Jardiance at the time of discharge. We will have him follow-up with cardiology 1 week after discharge from rehab given the changes to his regimen at discharge. Teleneurology indicated that we need to continue his current therapy with Eliquis, low-dose aspirin, high-dose statin, and other cardiovascular risk factors with no significant recommended changes, but did feel that this was consistent with acute stroke. Physical therapy and Occupational Therapy saw the patient and felt that he had enough deficits and safety issues that he would benefit from rehab. He has been accepted to the rehab and is able to discharge there on Thursday pending pre-CERT. Patient states he is feeling much better today. Still has some ataxia on his right upper extremity. States his visual changes and dizziness had resolved. Objective Data Objective Data Vital Signs: Vital Signs Temp Pulse Resp BP Pulse Ox O2 Del Method 97.3 F L 70 18 158/87 H 94 Room Air 02/12/24 14:00 02/12/24 14:00 02/12/24 14:00 02/12/24 14:00 02/12/24 14:00 02/12/24 14:00 Oxygen Delivery Method Room Air Weight: 92 kg Body Mass Index (BMI) 28.3 Intake & Output: Intake and Output for Last 24 Hours 02/10/24 02/11/24 02/12/24 23:59 23:59 23:59 Intake Total 240 / 240 360 / 360 Balance 240 / 240 360 / 360 Lab / Micro Data 02/12/24 04:45 02/12/24 08:20 Labs: Laboratory Results - last 24 hr 02/11/24 13:50: Magnesium 2.1 02/11/24 23:45: Urine Color Yellow, Urine Clarity Clear, Urine pH 6.0, Ur Specific [place]vel 1.015, Urine Protein 30 H, Urine Glucose (UA) Normal, Urine Ketones 5 H, Urine Occult Blood 250 H, Urine Nitrite Negative, Urine Bilirubin Negative, Urine Urobilinogen Normal, Ur Leukocyte Esterase Negative, Urine RBC 10-25 SEEN, Urine WBC 0 SEEN, Ur Squamous Epith Cells 0-5 SEEN, Urine Bacteria 0 SEEN, Urine Mucus 0 SEEN 02/12/24 04:45: WBC 7.3, RBC 4.06 L, Hgb 12.5 L, Hct 38.7 L, MCV 95.3 H, MCH 30.8, MCHC 32.3, RDW Std Deviation 48.5 H, RDW Coeff of Theresa 13.9, Plt Count 159, MPV 12.0, Immature Gran % (Auto) 0.400, Neut % (Auto) 76.3 H, Lymph % (Auto) 12.0 L, Cloud % (Auto) 9.4, Eos % (Auto) 1.2, Baso % (Auto) 0.7, Absolute Neuts (auto) 5.6, Absolute Lymphs (auto) 0.88, Nucleated RBC % 0, Differential Comment SCANNED, Sodium Cancelled, Potassium Cancelled, Chloride Cancelled, Carbon Dioxide Cancelled, Anion Gap Cancelled, BUN Cancelled, Creatinine Cancelled, Estim Creat Clear Calc Cancelled, Est GFR (MDRD) Af Amer Cancelled, Est GFR (MDRD) Non-Af Cancelled, BUN/Creatinine Ratio Cancelled, Glucose Cancelled, Calcium Cancelled, Magnesium Cancelled, Triglycerides Cancelled, Cholesterol Cancelled, LDL Cholesterol Cancelled, VLDL Cholesterol Cancelled, HDL Cholesterol Cancelled, TSH Cancelled 02/12/24 08:20: Sodium 138, Potassium 3.6, Chloride 105, Carbon Dioxide 25.0, Anion Gap 8, BUN 15, Creatinine 1.28, Estim Creat Clear Calc 47.15, Est GFR (MDRD) Af Amer 68, Est GFR (MDRD) Non-Af 56 L, BUN/Creatinine Ratio 11.7, G lucose 130 H, Calcium 9.5, Magnesium 2.2, Triglycerides 104, Cholesterol 111, LDL Cholesterol 34, VLDL Cholesterol 21, HDL Cholesterol 56, TSH 4.170 H Radiography Diagnostic Testing: Radiology Impression Echocardiogram 02/11/24 16:13 Interpretation Summary Mildly dilated left ventricle. Mild left ventricular concentric hypertrophy. Severe generalized LV hypokinesis. Estimated LVEF 25%. The left atrium is severely enlarged. The right atrium is mildly enlarged. Moderate to severe mitral annular calcification. Mild mitral valve regurgitation. Moderately thickened aortic valve leaflets. Mild aortic valve stenosis. The study was technically difficult. Ordering Physician: Karlie Roberson Performed By: Kenroy Franks RCS Brain CT 02/12/24 13:00 IMPRESSION: Findings suggestive of normal pressure hydrocephalus. Stable examination. Electronically Signed: Geovany Pruett MD at 13:44 EDT , Physical Exam Const alert, oriented x3, no apparent distress and well nourished Constitutional Narrative: Elderly, white male, sitting up in a chair, appears comfortable, nontoxic, watching television HEENT head/scalp atraumatic and moist oral mucous membranes HEENT Narrative: Dentures are in place, Mallampati is 2, no thrush Head and Scalp: normocephalic Resp normal respiratory effort, no retractions, no use of accessory muscles and clear to auscultation bilaterally Auscultation: Negative for rales, rhonchi or wheezes Cardio regular rate, S1 normal heart sound, S2 normal heart sound, no rub, no gallops and no clicks; Negative for no murmurs Cardio Narrative: Irregularly irregular with intermittent ectopy, 2 out of 6 systolic murmur GI normal to inspection, nondistended, normoactive bowel sounds, soft to palpation and non-tender Extremity no clubbing, cyanosis or edema Extremity Narrative: Pedal pulses are 2+ Neuro oriented x3, CN's II-XII intact bilaterally, moves all extremities and no focal motor deficits Neuro Narrative: Patient with significant right upper and right lower extremity ataxia worse upper than lower with significant past-pointing Coordination / Balance: Negative for [id number] test normal or [id number] test normal Speech: speech normal Psych affect normal Psych Narrative: Extremely pleasant, interacts appropriately Assessment & Plan Assessment/Plan (1) CVA (cerebral vascular accident): PLAN: Plan Acute stroke -Current NIH is 0 but patient still has ataxia of the right upper and right lower extremity with past-pointing and difficulty with [id number] -No significant changes per teleneurology -Continue high intensity dose statin--> cholesterol appears to be well- controlled -Continue Eliquis and low-dose aspirin -Echo with no bubble study however EF is slightly lower see below -Continue NIH over the next 24 hours -PT/OT following and recommending rehab at discharge -Plan is for discharge to rehab on Thursday pending pre-CERT CAD/ischemic cardiomyopathy/permanent atrial fibrillation/essential HTN/HPL -History of CABG in 2003 -MATTHEW to RCA in 2012 -EKG shows A-fib with rate controlled, RBBB and intermittent ectopy with PVCs -EF has dropped slightly from 35 to 20% with global abnormalities -Patient is on goal-directed therapy with carvedilol, Lasix, and lisinopril however with worsening EF we will make some transition and have follow-up with cardiology in 1 to 2 weeks after discharge from rehab -Continue carvedilol 6.25 mg p.o. twice daily -Start low-dose Entresto after washout of lisinopril -Start low-dose Aldactone 12.5 mg daily -Start Jardiance 10 mg daily -Patient states current ICD pacer is not functional at this time--> patient has declined replacement -Restart home Lasix tomorrow -Continue home statin -Will discontinue amlodipine CKD stage IIIa -At baseline -Restart diuretics tomorrow -Monitor History of stroke -No chronic significant residual deficits -Continue as above Glaucoma -Continue home eyedrops Obstructive sleep apnea -Continue home BiPAP Depression -Patient's mood seems stable and he currently is not taking anything -Monitor Insomnia -Hold zolpidem DVT prophylaxis -Continue home Eliquis CODE STATUS -Full code Charges/Coding Visit Charges Inpatient E&M: 00151 Subs Hosp L2
--- NOTE | 2024-02-12 20:11 | CPS ---
Patient brought in own PAP machine for night time use. 94% on RA.
[2024-02-12] MEDS: Atorvastatin Calcium 80 MG Tablet PO (21:00)
[2024-02-12] MEDS: Carvedilol 6.25 MG Tablet PO (21:00)
[2024-02-12] MEDS: Latanoprost 0.005% 1 Bottle 1 DRP OPHTHALMIC (21:00)
[2024-02-13 01:00] VITALS: BP 137/92; PULSE 75; RESP 18; TEMP 36.2; O2SAT 98
[2024-02-13 03:11] VITALS: BMI 28.3
[2024-02-13 05:00] VITALS: BP 156/84; PULSE 73; RESP 18; TEMP 36.2; O2SAT 95
[2024-02-13 07:43] VITALS: BP 156/103; PULSE 89; RESP 18; TEMP 36.6; O2SAT 99
[2024-02-13 07:45] VITALS: PULSE 75
--- NOTE | 2024-02-13 08:45 | CASEMGMT ---
DONTE SANDHU in to complete AMARO with patient. DONTE SANDHU expained AMARO form to patient, patient voiced understanding. Patient signed AMARO form and filed in chart. Patient provided copy of signed AMARO form. Patient had no further questions or concerns.
--- NOTE | 2024-02-13 08:59 | CASEMGMT ---
Patient has been approved for Rehab Unit. Plan: d/c to [facility] Rehab Unit. Jane GARZA
[2024-02-13] MEDS: Aspirin 81 MG TAB.CHEW PO (10:05)
[2024-02-13] MEDS: Spironolactone 25 MG Tablet 12.5 MG PO (10:05)
[2024-02-13] MEDS: Carvedilol 6.25 MG Tablet PO ×2 (10:05→20:59)
[2024-02-13] MEDS: Empagliflozin 10 MG Tablet PO (10:06)
[2024-02-13] MEDS: SACUBITRIL/VALSARTAN 24/26 MG TABLET 1 EACH PO ×2 (10:06→20:59)
[2024-02-13] MEDS: APIXABAN 5 MG TABLET PO ×2 (10:06→20:59)
--- NOTE | 2024-02-13 10:44 | PN.HOSP_ITS ---
Reason for Visit Reason for Visit: Right side ataxia, visual changes Subjective Subjective Patient has no significant complaints this morning. He is still frustrated about the ataxia in his right upper extremity. He does tend to get more agitated when he is hooked up to multiple devices so we will go ahead and discontinue telemetry and continuous pulse ox at this time due to these reasons. Plan is for rehab tomorrow. Pre-CERT was obtained. Objective Data Objective Data Vital Signs: Vital Signs Temp Pulse Resp BP Pulse Ox O2 Del Method 97.8 F 75 18 156/103 H 99 Room Air 02/13/24 07:43 02/13/24 07:45 02/13/24 07:43 02/13/24 07:43 02/13/24 07:43 02/13/24 08:17 Oxygen Delivery Method Room Air Weight: 92 kg Body Mass Index (BMI) 28.3 Intake & Output: Intake and Output for Last 24 Hours 02/11/24 02/12/24 02/13/24 23:59 23:59 23:59 Intake Total 240 / 240 600 / 600 Output Total 825 / 825 Balance 240 / 240 -225 / -225 Lab / Micro Data 02/12/24 04:45 02/12/24 08:20 Radiography Diagnostic Testing: Radiology Impression Echocardiogram 02/11/24 16:13 Interpretation Summary Mildly dilated left ventricle. Mild left ventricular concentric hypertrophy. Severe generalized LV hypokinesis. Estimated LVEF 25%. The left atrium is severely enlarged. The right atrium is mildly enlarged. Moderate to severe mitral annular calcification. Mild mitral valve regurgitation. Moderately thickened aortic valve leaflets. Mild aortic valve stenosis. The study was technically difficult. Ordering Physician: Karlie Roberson Performed By: Kenroy Franks RCS Brain CT 02/12/24 13:00 IMPRESSION: Findings suggestive of normal pressure hydrocephalus. Stable examination. Electronically Signed: Geovany Pruett MD at 13:44 EDT , Physical Exam Const alert, oriented x3, no apparent distress and well nourished; Negative for average body habitus or healthy appearing Constitutional Narrative: Elderly, white male, sitting up in a chair, appears comfortable, nontoxic, watching television HEENT head/scalp atraumatic and moist oral mucous membranes HEENT Narrative: Dentition is poor, Mallampati is 2, no thrush Head and Scalp: normocephalic Resp normal respiratory effort, no retractions, no use of accessory muscles and clear to auscultation bilaterally Auscultation: Negative for rales, rhonchi or wheezes Cardio regular rate, S1 normal heart sound, S2 normal heart sound, no rub, no gallops and no clicks; Negative for no murmurs Cardio Narrative: Irregularly irregular GI normal to inspection, nondistended, normoactive bowel sounds, soft to palpation and non-tender Extremity no clubbing, cyanosis or edema Extremity Narrative: Pedal pulses are 2+ Neuro oriented x3, moves all extremities and no focal motor deficits Neuro Narrative: Patient with significant right upper and right lower extremity ataxia worse upper than lower with significant eusy-[id number] a little bit better than yesterday. No left-sided ataxia Coordination / Balance: Negative for aplmbv-dp-tcjb test normal or spng-vq-gdya test normal Speech: speech normal Psych affect normal Psych Narrative: Extremely pleasant, interacts appropriately Assessment & Plan Assessment/Plan (1) CVA (cerebral vascular accident): PLAN: Plan Acute stroke -Continue high intensity dose statin--> cholesterol appears to be well- controlled -Continue Eliquis and low-dose aspirin -Echo with no bubble study however EF is slightly lower see below -Continue NIH over the next 24 hours -PT/OT following and recommending rehab at discharge -Plan is for discharge to rehab [id number] has been obtained CAD/ischemic cardiomyopathy/permanent atrial fibrillation/essential HTN/HPL -History of CABG in 2003 -MATTHEW to RCA in 2012 -EKG shows A-fib with rate controlled, RBBB and intermittent ectopy with PVCs -EF has dropped slightly from 35 to 25% with global abnormalities of the LV -Patient is on goal-directed therapy with carvedilol, Lasix, and lisinopril however with worsening EF we will make some transition and have follow-up with cardiology in 1 to 2 weeks after discharge from rehab -Continue carvedilol 6.25 mg p.o. twice daily -Start low-dose Entresto today after washout of lisinopril for 48 hours -Continue low-dose Aldactone 12.5 mg daily -Continue Jardiance 10 mg daily -Patient states current ICD pacer is not functional at this time--> patient has declined replacement -Restart Lasix -Continue home statin -Will discontinue amlodipine CKD stage IIIa -At baseline -Restart home Lasix -Monitor History of stroke -No chronic significant residual deficits -Continue as above Glaucoma -Continue home eyedrops Obstructive sleep apnea -Continue home BiPAP Depression -Patient's mood seems stable and he currently is not taking anything -Monitor Insomnia -Hold zolpidem DVT prophylaxis -Continue home Eliquis CODE STATUS -Full code Disposition: Patient was ready for discharge on 02/12/2024. Pre-CERT was obtained yesterday. Plan is for rehab tomorrow due to staffing purposes. Charges/Coding Visit Charges Inpatient E&M: 55290 Subs Hosp L2
[2024-02-13] MEDS: Furosemide 20 MG Tablet PO (12:06)
[2024-02-13 13:00] VITALS: BMI 28.3
[2024-02-13 14:56] VITALS: BMI 28.3
[2024-02-13] MEDS: Dorzolamide 2% 10ml Bottle 1 DRP OPHTHALMIC ×3 (15:32→21:00)
[2024-02-13 20:57] VITALS: BP 132/64; PULSE 67; RESP 16; TEMP 36.8; O2SAT 96
[2024-02-13] MEDS: Atorvastatin Calcium 80 MG Tablet PO (21:00)
[2024-02-13] MEDS: Latanoprost 0.005% 1 Bottle 1 DRP OPHTHALMIC (21:00)
[2024-02-13] MEDS: MELATONIN 3 MG TABLET PO (23:53)
[2024-02-14 00:20] VITALS: BMI 28.3
[2024-02-14 06:00] VITALS: BMI 26.0
[2024-02-14] MEDS: Dorzolamide 2% 10ml Bottle 1 DRP OPHTHALMIC (06:20)
[2024-02-14 06:22] VITALS: BP 142/90; PULSE 68; RESP 16; TEMP 36.6; O2SAT 98
--- NOTE | 2024-02-14 09:10 | NURSING ---
into room with Dragan, neuro eval completed with Dragan. no change noted in verbal communication. pt states n/t to top rt side of head but denies this extending down his face and denies difference in sensation b/l to face/cheeks. no change noted from previously reported rt sided ataxia
[2024-02-14 09:12] VITALS: BP 95/72; PULSE 85; RESP 24; TEMP 36.9; O2SAT 97
[2024-02-14 09:13] VITALS: PULSE 80
[2024-02-14] MEDS: Aspirin 81 MG TAB.CHEW PO (09:25)
[2024-02-14] MEDS: APIXABAN 5 MG TABLET PO (09:27)
[2024-02-14] MEDS: Empagliflozin 10 MG Tablet PO (09:28)
[2024-02-14] MEDS: Senna/Docusate Sodium 1 Tablet 2 TABLET PO (09:32)
--- NOTE | 2024-02-14 09:35 | NURSING ---
pt had many complaints, this nurse assessed him, did not know his baseline, reported to charge nurse and she assessed pt. and it was decided he was at his baseline. he was assisted to the recliner x2, and was shown how he could call his , he seemed more relaxed. call light in reach.
[2024-02-14 10:36] VITALS: BP 100/64; BP 96/64
--- NOTE | 2024-02-14 11:16 | DS.PCM_ITS ---
Providers Date of Admission: 02/11/24 Date of Discharge: 02/14/24 Primary Care Physician: Dr. Torin Noyola MD Consultations 02/11/24 16:18 Consult: Tele-Neurology Routine Consulting Provider: [facility] Reason for Consult: Acute Ischemic Stroke/TIA EMERGENT Consult: No MD Notified: Yes Date Notified: 02/11/24 Time Notified: 16:37 Method of Notification: Answering Service Nursing Unit Staff Notify [facility] of Tele-Neurology Consult: Yes Reason For Visit: SUSPECTED CVA Diagnosis Discharge Diagnosis (1) CVA (cerebral vascular accident): Status: Acute Code(s): I63.9 - Cerebral infarction, unspecified Medications at Discharge Home Medications ipratropium 20 mcg-albuterol 100 mcg/actuation mist for inhalation 1 puff inhalation 4X/DAY PRN COPD 09/20/19 dorzolamide 2 % eye drops 1 drp ophthalmic (eye) TID GLAUCOMA 03/25/23 latanoprost 0.005 % eye drops 1 drp ophthalmic (eye) QHS GLAUCOOMA 03/25/23 aspirin 81 mg chewable tablet 81 mg PO DAILY HEART HEALTH 30 days #30 tabs 03/26/23 ipratropium 0.5 mg-albuterol 3 mg (2.5 mg base)/3 mL nebulization soln 3 ml inhalation 4X/DAY PRN shortness of breath or wheezing 04/15/23 potassium chloride 20 mEq tablet,extended release 20 meq PO DAILY #90 tabs 04/15/23 apixaban 5 mg tablet 5 mg PO BID BLOOD THINNER #60 tabs 05/18/23 furosemide 20 mg tablet 20 mg PO DAILY EDEMA #90 tabs 07/07/23 atorvastatin 80 mg tablet 80 mg PO QHS #90 TABLETS 02/10/24 acetaminophen 325 mg tablet 650 mg (2 x 325 mg) PO Q6H PRN PRN Pain 1-10 Or Fever >100.7 #0 tabs 02/14/24 carvedilol 3.125 mg tablet 3.125 mg PO BID #0 tabs 02/14/24 empagliflozin 10 mg tablet (Jardiance) 10 mg PO DAILY #0 tabs 02/14/24 melatonin 3 mg tablet 3 mg PO QHS PRN PRN Insomnia #0 tabs 02/14/24 sacubitril 24 mg-valsartan 26 mg tablet (Entresto) 1 tab PO BID #1 TAB 02/14/24 Hospital Course Summary of Care Provided Hospital Course: Patient is an 88-year-old white male with a history of stroke who came in with sudden onset dizziness, visual changes and right-sided ataxia. He is chronically on aspirin and apixaban and compliant. He has a known cardiomyopathy and follows with the heart group. He was a stroke alert on presentation in the emergency department at [facility] on 02/11/2024 and was evaluated by telemetry neuro. Initial NIH was 2 but he was not a candidate for thrombolytic due to his Eliquis use. He reported that he was feeling well until around noon at which time he was standing making a sandwich and felt sudden onset of dizziness/lightheadedness. His reports that he was diaphoretic and was so unsteady that she had to get into the chair. Upon presentation he was still complaining of feeling dizzy/lightheaded and that his vision was blurry in his right eye. He did have some slight nausea and sweats earlier but that had since resolved as well. Vital signs on presentation showed a temperature of 97, heart rate 80, blood pressure 157/131, respiratory was 20 and pulse ox was 99% on room air. CBC was overtly unremarkable other than some mild chronic anemia with a hemoglobin of 12.5. Coags were slightly abnormal which was expected given Eliquis use. Chemistry panel was unremarkable other than some mild CKD which appeared to be relatively stable. His glucose was 133. Magnesium was within normal limits. Troponin was normal at 12. We have obtained a lipid panel and he has a total cholesterol of 111/LDL 34/HDL 56 triglyceride level of 104. TSH was 4.17 consistent with euthyroid sick syndrome. His UA showed some occult blood but was not consistent with infection. CT of the brain was unremarkable other than stable encephalomalacia of the right temporal and parietal lobes and chronic involutional changes. CTA of the head and neck showed no significant atherosclerotic disease with plaque formation less than 50% in bilateral internal carotid arteries. Chest x-ray shows no acute changes. The patient was admitted to PCU with stroke protocol per recommendations of [facility] as there was high suspicion of stroke on presentation given his symptoms. NIH is have been followed since that point in time and most recently are 0. Repeat CT shows stable changes. Echocardiogram was performed and shows an EF of 25% with a severely enlarged left atrium and a mildly enlarged right atrium with mild to severe mitral annular calcification with mild mitral valve regurgitation and mild aortic valve stenosis. His EF is slightly reduced from his most recent echocardiogram from 2019. He does follow with cardiology on a regular basis. Given his slight change in EF we did alter his medication regimen for goal-directed therapy and continued his Coreg but transition him to Entresto, started low-dose Aldactone and Jardiance. At the time of discharge the Aldactone was hold as blood pressures precluded it at that time however we will have him follow-up with cardiology within 1 week after discharge for reevaluation of being able to initiate Aldactone in addition to his other medications. We also did decrease his Coreg dose at 3.125 from 6.25 daily. Teleneurology indicated that we need to continue his current therapy with Eliquis, low-dose aspirin, high-dose statin, and other cardiovascular risk factors with no significant recommended changes, but did feel that this was consistent with acute stroke. Physical therapy and Occupational Therapy saw the patient and felt that he had enough deficits and safety issues that he would benefit from rehab. He has been accepted to the rehab and pre-CERT was obtained. He was able to discharge to acute rehab on 02/14/2024. We have recommended that he follow-up with his primary care physician and cardiology with 1 week after discharge from acute rehab and follow-up with neurology within 3 months after discharge or upon availability of local neurologist. I do highly suspect patient may have some mild component of vascular dementia/mild cognitive impairment due to cerebrovascular disease at baseline. Discharge diagnoses: Acute stroke CAD Ischemic cardiomyopathy Permanent atrial fibrillation Essential hypertension Hyperlipidemia CKD stage IIIa History of stroke Glaucoma OTILIA Depression Physical Exam Const alert, oriented x3, no apparent distress and well nourished; Negative for average body habitus or healthy appearing Constitutional Narrative: Elderly, white male, sitting up in a chair at the bedside, appears comfortable, nontoxic, watching television General Appearance: cooperative, comfortable, well kempt and well developed Orientation / Consciousness: awake, oriented to person, oriented to place and oriented to time Exam Limitations: no limitations Nutritional Appearance: overweight HEENT normocephalic, head/scalp atraumatic and moist oral mucous membranes HEENT Narrative: Moderate hearing loss, Mallampati is 2-3, no thrush Eyes PERRL, EOMs intact bilaterally and conjunctivae normal Eyes Narrative: No scleral icterus Neck no lymphadenopathy and supple Neck Narrative: Trachea midline, no thyroid enlargement Resp normal respiratory effort, no retractions, no use of accessory muscles and clear to auscultation bilaterally Auscultation: Negative for rales, rhonchi or wheezes Cardio regular rate, S1 normal heart sound, S2 normal heart sound, no rub, no gallops and no clicks; Negative for no murmurs Cardio Narrative: Irregularly irregular GI normal to inspection, nondistended, normoactive bowel sounds, soft to palpation and non-tender Extremity no clubbing, cyanosis or edema Extremity Narrative: Pedal pulses are 2+ Skin no wounds, skin turgor normal and no jaundice Neuro oriented x3, CN's II-XII intact bilaterally, moves all extremities and no focal motor deficits Neuro Narrative: Patient still with right-sided ataxia right upper extremity later than right lower extremity but otherwise is intact at this time Coordination / Balance: Negative for [id number] test normal or [id number] test normal Speech: speech normal Psych affect normal Psych Narrative: Extremely pleasant, interacts appropriately Weight / BMI Weight Weight: 84.8 kg Body Mass Index (BMI) 26.0 ABG / Lab / Microbiology Data 02/12/24 04:45 02/12/24 08:20 D/C Instructions Discharge Diet: Low fat / Low cholesterol Meaningful Use Info Meaningful Use Meaningful Use Diagnoses (Choose all that apply): None applicable CVA Therapy Assessed for PT,OT and/or ST?: Yes Ischemic Stroke Antithrombotic order at d/c?: Yes Dx of Atrial fib/flutter?: Yes Anticoagulant at discharge?: Yes Statin Dosing Therapy Reference: STATIN DOSE THERAPY REFERENCE: * Patients > 75 years receive moderate or high dose statin therapy. * Patients 75 years or YOUNGER should receive HIGH intensity statin dose unless contraindicated. You will be required to document reason for non-treatment if statin daily dose does not meet guidelines. HIGH DOSE STATIN THERAPY DAILY Atorvastatin > than or = to 40 mg Rosuvastatin > than or = to 20 mg Amlodipine + Atorvastatin > than or = to 2.5/40 mg Ezetimibe + Simvastatin 10/80 mg Simvastatin 80mg Statins at discharge?: Yes Primary Dx Acute Ischemic CVA?: Yes IV thrombolytic ordered during stay?: No Reason IV thrombolytic not ordered: Medical Contraindication Discharge Plan Admission Admit Date/Time: 02/11/24 15:46 Primary Reason for Your Visit: Right side ataxia, visual changes Attending Provider: Ivon Armstrong Primary Care Provider: Torin Noyola Consulting Providers: Lonnie Cuevas; Michael Walton; Angelica Schmitz; Merair Noguera; Mayela Philip; Jesús Brown; Taylor Pineda; Simon Marina; Eleazar Jama; Dylan Perry; Mavis Hall; Arie Pairkh; Shellie Chapman; Yesika Landeros; Alonzo Edouard; Royer Chapa; Shellie Amos; Rogelio Solano; Bijal Armstrong; Kaylin Rodriguez; Karlie Roberson Discharge Orders/Prescriptions Prescriptions: New melatonin 3 mg Tablet 3 mg PO QHS PRN PRN (Reason: Insomnia) Qty: 0 0RF Entresto 24-26 mg Tablet 1 tab PO BID Qty: 1 0RF acetaminophen 325 mg Tablet 650 mg PO Q6H PRN PRN (Reason: Pain 1-10 Or Fever >100.7) Qty: 0 0RF carvedilol 3.125 mg Tablet 3.125 mg PO BID Qty: 0 0RF Jardiance 10 mg Tablet 10 mg PO DAILY Qty: 0 0RF Continued ipratropium-albuterol 0.5 mg-3 mg(2.5 mg base)/3 mL solution for nebulization 3 ml inhalation 4X/DAY PRN (Reason: shortness of breath or wheezing) Patient Comments: INHALE 1 (ONE) VIAL VIA NEBULIZER UP TO FOUR TIMES DAILY NEEDED FOR FOR WHEEZING OR SHORTNESS OF BREATH ipratropium-albuterol 1 PUFF inhaler 1 puff inhalation 4X/DAY PRN (Reason: COPD) dorzolamide 2 % drops 1 drp ophthalmic (eye) TID latanoprost 0.005 % drops 1 drp ophthalmic (eye) QHS aspirin 81 MG tablet,chewable 81 mg PO DAILY 30 Days Qty: 30 2RF apixaban 5 mg tablet 5 mg PO BID Qty: 60 11RF furosemide 20 mg tablet 20 mg PO DAILY Qty: 90 4RF atorvastatin 80 mg tablet 80 mg PO QHS Qty: 90 3RF Held potassium chloride 20 mEq tablet extended release 20 meq PO DAILY Qty: 90 3RF Hold Instructions: monitor K and restart if needed Discontinued zolpidem 5 MG tablet 5 mg PO QHS PRN (Reason: INSOMNIA ) lisinopril 40 MG tablet 40 mg PO DAILY amlodipine 10 mg tablet 10 mg PO DAILY Qty: 90 3RF carvedilol 6.25 mg tablet 6.25 mg PO BID Qty: 180 3RF Referrals / Follow Up: Torin Noyola MD [Primary Care Provider] - Within 1 Week (After discharge from rehab) Ruben Gonzalez NP, DISINTEGRATOR OPERATOR-C [Med Staff - Adv Practice Prof] - Within 1 Week (After discharge from rehab) Jules Low MD [Non-Staff -Ordering Privileges] - Within 3 Months (After discharge from rehab) Disposition Disposition (needs filled in before D/C Order can be placed): Inpatient Rehab Unit/Facility Charges/Coding Visit Charges Inpatient E&M: 08796 Disch Hosp >30min
--- NOTE | 2024-02-14 12:30 | NURSING ---
Report called to Geno KENT, he is going to [phone]
== END 2024-02-14 13:03 ==
LOC: ED 15:21 → PCU 16:08 → MS3 02-13 12:57
PROVIDERS: Admitting Provider Internal Medicine; Emergency Provider Emergency Medicine; PCP Internal Medicine; Visit Provider Internal Medicine
DX: I63.9 Cerebral infarction, unspecified (principal); M06.9 Rheumatoid arthritis, unspecified; I13.0 Hypertensive heart and chronic kidney disease with heart failure and stage 1 through stage 4 chronic kidney disease, or unspecified chronic kidney disease; I50.22 Chronic systolic (congestive) heart failure; J44.9 Chronic obstructive pulmonary disease, unspecified; I48.20 Chronic atrial fibrillation, unspecified; N18.31 Chronic kidney disease, stage 3a; Z87.891 Personal history of nicotine dependence; Z79.01 Long term (current) use of anticoagulants; I25.10 Atherosclerotic heart disease of native coronary artery without angina pectoris; Z79.82 Long term (current) use of aspirin; G47.33 Obstructive sleep apnea (adult) (pediatric); Z79.899 Other long term (current) drug therapy; R27.0 Ataxia, unspecified; Z95.810 Presence of automatic (implantable) cardiac defibrillator; Z95.1 Presence of aortocoronary bypass graft; I25.5 Ischemic cardiomyopathy; Z66 Do not resuscitate
CPT/HCPCS: 99285; 36415; 70450; 70496; 70498; 71045; 80048; 80061; 81001; 82962; 83735; 84443; 84484; 85025; 85610; 85730; 92610; 93005; 93308; 94762; 97110; 97116; 97162; 97166; 97530; 97535; 97802; Q9957; Q9967; A4216; C8924

== ENCOUNTER 2024-02-14 13:09 | Inpatient (IN) | payer MEDICARE, SELFPAY ==
[2024-02-14 13:26] VITALS: BMI 26.4
[2024-02-14 13:39] VITALS: BP 119/65; PULSE 76; RESP 16; TEMP 36.9; O2SAT 92; BMI 26.4
[2024-02-14] MEDS: Dorzolamide 2% 10ml Bottle 1 DRP OPHTHALMIC (14:53)
--- NOTE | 2024-02-14 15:48 | HP.PCM_ITS ---
HPI - General General Date of Admission: 02/14/24 Date of Service: 02/15/24 Chief Complaint: Here for 3 hours daily rehabilitation. HPI Narrative 02/11/2024 ALEXIA MERIDA, is a 88 Male who presents to [facility] ED with dizziness. Yelled, unsteady on feet, helped to floor, sweating. [place] unwell, Difficulty walking. Not TNK candidate 2/[address] head negative, CTA head/neck < 50% bilateral internal carotid stenosis. 02/11/2024 Admit [facility]. MRI unable 2/2 pacemaker. PT/OT/ST for stroke. AICD not working. 02/11/2024 Echo mildly dilated LV. Mild concentric LVH. Severe generalized LV hypokinesis, EF 25%. LA severely enlarged. 02/12/2024 Neurology recommended aspirin, Eliquis. High intensity statin, CV risk factor optimization. 02/13/2024 right upper extreity ataxia. Treat HFrEF with low dose carvedilol, wash out Lisinopril, start Entresto, start Jardiance, start spironolactone, restart Furosemide. 02/14/2024 Admit for 3 hours daily rehabilitation, strengthening, prior to discharge home with . [facility] Medical History (Updated 02/14/24 @ 16:[address] Jermaine Grider MD) COPD (chronic obstructive pulmonary disease) Myocardial infarct Depression Rheumatoid arthritis BiPAP (biphasic positive airway pressure) dependence Sleep apnea Pacemaker Congestive heart failure (CHF) Atherosclerotic heart disease of [place] coronary artery without angina pectoris Atrial fibrillation CVA (cerebral vascular accident) Home Medications ?Medication ?Instructions ?Recorded ?Last Taken ?Type ipratropium 20 mcg-albuterol 100 1 puff inhalation 4X/DAY PRN COPD 09/20/19 Unknown History mcg/actuation mist for inhalation dorzolamide 2 % eye drops 1 drp ophthalmic (eye) TID GLAUCOMA 03/25/23 02/14/24 History latanoprost 0.005 % eye drops 1 drp ophthalmic (eye) QHS 03/25/23 02/13/24 History GLAUCOOMA aspirin 81 mg chewable tablet 81 mg PO DAILY HEART HEALTH 30 03/26/23 Unknown Rx days #30 tabs ipratropium 0.5 mg-albuterol 3 mg 3 ml inhalation 4X/DAY PRN 04/15/23 Unknown History (2.5 mg base)/3 mL nebulization shortness of breath or wheezing soln potassium chloride 20 mEq 20 meq PO DAILY Potassium #90 tabs 04/15/23 Unknown Rx tablet,extended release apixaban 5 mg tablet 5 mg PO BID BLOOD THINNER #60 tabs 05/18/23 02/14/24 Rx furosemide 20 mg tablet 20 mg PO DAILY EDEMA #90 tabs 07/07/23 02/13/24 Rx atorvastatin 80 mg tablet 80 mg PO QHS Cholestrol #90 TABLETS 02/10/24 02/13/24 Rx acetaminophen 325 mg tablet 650 mg (2 x 325 mg) PO Q6H PRN PRN 02/14/24 Unknown Rx Pain 1-10 Or Fever >100.7 #0 tabs carvedilol 3.125 mg tablet 3.125 mg PO BID BP #0 tabs 02/14/24 02/13/24 Rx empagliflozin 10 mg tablet 10 mg PO DAILY DM #0 tabs 02/14/24 02/14/24 Rx (Jardiance) melatonin 3 mg tablet 3 mg PO QHS PRN PRN Insomnia #0 02/14/24 02/13/24 Rx tabs sacubitril 24 mg-valsartan 26 mg 1 tab PO BID Heart #1 TAB 02/14/24 Unknown Rx tablet (Entresto) Allergy/AdvReac Type Severity Reaction Status Date / Time Penicillins (PCN) Allergy Rash Verified 02/11/24 13:56 Sulfa (Sulfonamide Allergy Rash Verified 02/11/24 13:56 Antibiotics) Family History Mother Myocardial infarction Sister Tuberculosis Father Peripheral artery disease Surgical History History of coronary artery stent placement History of total left knee replacement History of left inguinal hernia repair History of cholecystectomy S/P CABG (coronary artery bypass graft) S/P implantation of automatic cardioverter/defibrillator (AICD) H/O coronary angioplasty History of cardiac catheterization Social History (Updated 02/14/24 @ 16:[address] Jermaine Grider MD) household members: spouse Smoking Status: Former smoker how long ago did patient quit smokin alcohol intake: current alcohol intake frequency: a few times a week substance use type: does not use caffeine: Yes Type: coffee Number of servings: 6 ROS Constitutional Constitutional: Denies chills, fever(s) or weight gain ENT HEENT: Denies headache(s), nasal congestion or nasal discharge Cardiovascular Cardiovascular: Denies chest pain or palpitations Respiratory/Chest Respiratory/Chest: Denies cough, excessive phlegm production or shortness of breath with exertion Gastrointestinal Gastrointestinal: Denies abdominal pain, nausea or vomiting Genitourinary Genitourinary: Denies dysuria Musculoskeletal Musculoskeletal: Denies joint pain or joint swelling Integumentary Integumentary: Denies rash or wounds Neurologic Neurologic: Reports numbness; Denies focal weakness or tingling Psychiatric Psychiatric: Denies anxiety, auditory hallucinations, depression, homicidal ideation or suicidal ideation Vital Signs Vital Signs Vital Signs: 02/14/24 13:39 Temperature 98.4 F Temperature Source Temporal Pulse Rate 76 Respiratory Rate 16 Blood Pressure 119/65 Blood Pressure Mean 83 Blood Pressure Source Monitor Blood Pressure Position Semi-Fowlers Blood Pressure Location Right Arm Pulse Ox 92 Oxygen Delivery Method Room Air Weight Weight: 85.842 kg Body Mass Index (BMI) 26.4 Indicators for Scoring Admitted with or Primary Diagnosis of CVA/Stroke: Yes Hx of CVA/Stroke: Yes Modified [place] Score MRS Score at time of Evaluation: 3-Moderate disability NIHSS NIHSS 1a. Level of Consciousness: Alert; keenly responsive 1b. LOC Questions: Answers BOTH questions correctly. 1c. LOC Commands: Performs both tasks correctly. 2. Best Gaze: Normal 3. Visual: No visual loss 4. Facial Palsy: Minor paralysis (flattened nasolabial fold, asymmetry on smiling) 5a. Left Arm: No drift; arm holds 90 (or 45) degrees for full 10 seconds 5b. Right Arm: Drift; arm drifts downward but doesn?t hit the bed 6a. Left Leg: No drift; leg holds 30-degree position for full 5 seconds 6b. Right Leg: No drift; leg holds 30-degree position for full 5 seconds 7. Limb Ataxia: Absent 8. Sensory: [id number] sensory loss; 9. Best Language: No aphasia; normal 10. Dysarthria: Normal 11. Extinction and Inattention: No abnormality Total: 3 Physical Exam Const alert General Appearance: cooperative HEENT normocephalic Eyes PERRL and EOMs intact bilaterally Neck supple, no JVD and no carotid bruits Resp normal respiratory effort, normal air movement and clear to auscultation bilaterally Cardio regular rate and regular rhythm GI normal to inspection, nondistended, normoactive bowel sounds, non-tender and non-distended Extremity normal capillary refill General Extremity: Negative for edema Skin no rashes or lesions noted General Skin Exam: no breakdown Neuro Neuro Narrative: Mild right upper extremity hemiparesis Psych affect normal Appearance: appropriate Results Lab / Micro Data 02/15/24 05:15 02/15/24 05:15 Assessment & Plan Assessment/Plan (1) Debility: (2) CVA (cerebral vascular accident): (3) Right hemiparesis: (4) Chronic HFrEF (heart failure with reduced ejection fraction): (5) Depression: (6) Rheumatoid arthritis: (7) Obstructive sleep apnea: (8) Atrial fibrillation: (9) Essential (primary) hypertension: (10) Insomnia: (11) Glaucoma: (12) Hypokalemia: (13) Hyperlipidemia: QUALIFIERS: Hyperlipidemia type: mixed hyperlipidemia Qualified Code(s): E78.2 - Mixed hyperlipidemia (14) COPD (chronic obstructive pulmonary disease): PLAN: Plan 88 year old male with below past medical history hospitalized for stroke, right hemiparesis, complicated by acute on chronic HFrEF, admitted to for 3 hours daily rehabilitation, strengthening, prior to discharge home with . * Debility - PT/OT/ST. * Pain - Tylenol 1000mg q6 prn pain (1-10). * Bowel - senna/colace 2 tablets bid, MOM 30ml po x 1 prn, Dulcolax 10mg pr x 1 prn. * DVT prophylaxis - on Eliquis. * Stroke - Aspirin 81mg daily, Eliquis 5mg bid. * Hyperlipidemia - Atorvastatin 80mg qhs. * Chronic HFrEF - Coreg 3.125mg bid, Entresto 24/26mg bid, Jardiance 25mg daily, Furosemide 20mg daily. * Glaucoma - Trusopt 1gtt ou tid, Latanoprost 1gtt ou qhs. * COPD - Duoneb 3ml 4x/day prn. * Insomnia - Melatonin 3mg qhs prn.
[2024-02-14 17:43] VITALS: BP 120/71; PULSE 82; RESP 17; TEMP 36.9; O2SAT 97
[2024-02-14] MEDS: Latanoprost 0.005% 1 Bottle 1 DRP OPHTHALMIC (20:50)
[2024-02-14] MEDS: SACUBITRIL/VALSARTAN 24/26 MG TABLET 1 EACH PO (20:52)
[2024-02-14] MEDS: Carvedilol 3.125 MG TABLET PO (20:52)
[2024-02-14] MEDS: APIXABAN 5 MG TABLET PO (20:52)
[2024-02-14] MEDS: Atorvastatin Calcium 80 MG Tablet PO (20:52)
[2024-02-15] MEDS: Dorzolamide 2% 10ml Bottle 1 DRP OPHTHALMIC ×3 (05:19→20:31)
[2024-02-15 05:47] LABS: Absolute Neutrophil Count 5.2 X10^3/uL (2.0-7.7); Basophil# 0.05 X10^3/uL; Basophil% 0.7 % (0-1); Eosinophil# 0.25 X10^3/uL; Eosinophils% 3.4 % (0-5); Hematocrit 38.7 % (40-54); Hemoglobin 12.6 g/dL (13.0-16.5); Lymphocyte % 13.7 % (19-41); Mean Corp Hgb Conc 32.6 g/dL (32-36); Mean Corpuscular Hgb 30.6 pg (27.0-32.0); Mean Corpuscular Volume 93.9 fL (80-94); Mean Platelet Vol. 10.4 fl (6.2-12.0); Monocyte# 0.74 X10^3/uL; Monocyte% 10.2 % (0-10); NRBC Flagged by Analyzer 0 % (0-5); Neutrophil # 5.22 X10^3/uL (2.7-7.7); Neutrophil % 71.6 % (47-70); Platelet Count 202 K/mm3 (150-450); RBC Distribution Width CV 13.8 % (11.6-14.6); Red Blood Count 4.12 M/mm3 (4.6-6.2); White Blood Count 7.3 K/mm3 (4.4-11.0)
[2024-02-15 06:09] LABS: Anion Gap 7 (5-15); BUN 25 mg/dL (7-18); BUN/Creat Ratio 19.1 RATIO (10-20); Calcium,Total 8.7 mg/dL (8.5-10.1); Chloride 109 mmol/L (98-107); Creatinine, Serum 1.31 mg/dL (0.70-1.30); EST Glomerular Filtration Rate 55 mL/min (>60); Est Glom Filt Rate - Afr Amer 67 mL/min (>60); Estimated Creatinine Clearance 41.02 ml/min; Glucose 96 mg/dL (74-106); Potassium 3.2 mmol/L (3.5-5.1); Sodium Level 141 mmol/L (136-145)
[2024-02-15 06:31] VITALS: BP 112/60; PULSE 89; RESP 16; TEMP 36.6; O2SAT 98
[2024-02-15] MEDS: Furosemide 20 MG Tablet PO (07:44)
[2024-02-15] MEDS: Empagliflozin 10 MG Tablet PO (07:45)
[2024-02-15] MEDS: Carvedilol 3.125 MG TABLET PO ×2 (07:45→20:33)
[2024-02-15] MEDS: Aspirin 81 MG TAB.CHEW PO (07:45)
[2024-02-15] MEDS: APIXABAN 5 MG TABLET PO ×2 (07:45→20:33)
[2024-02-15] MEDS: SACUBITRIL/VALSARTAN 24/26 MG TABLET 1 EACH PO ×2 (07:45→20:33)
[2024-02-15] MEDS: Potassium Chloride Oral Tablet 20 MEQ PO (07:47)
[2024-02-15] MEDS: Potassium Chloride Oral Tablet 20 MEQ 40 MEQ PO (07:47)
--- NOTE | 2024-02-15 11:09 | CASEMGMT ---
Social Work SW requested pt to have provide copies of advanced directives. Bonnie Burgess, FURN[employer] RE[employer]ER [employer]IC [employer]CH[employer]Y INSTRUCTOR
[2024-02-15 15:24] VITALS: BMI 26.4
--- NOTE | 2024-02-15 15:35 | PCM.RU.PYE ---
Admission Information Primary Diagnosis:: Stroke, right hemiparesis. Status Changes from Prescreening?: No changes Identified Actual Problem List:: Pain, ALteration in Cmfrt, Alteration in Sleep, Mobility Impaired, Self Care Deficit, Ineffective Communication, Know.Dfct/Disease Process, Know.Dfct of Medicaitons and Alteration-Leisure Activ. Potential Problem List:: DVT, Bleeding, Infection, UTI, Aspiration, Falls, Skin Integrity and Depression Risk of Complications DVT: BRYN Hale Bleeding: Monitor Lab Values, Nursing to Teach Precautions for anti-coagulation therapy., Wound, if applicable, to be assessed every shift. and Stroke patients assessed for lethargy or change in status. Infection: Clinical Staff to Monitor for S/S of infection: and S/S of infection include fever, redness, warmth, etc. Urinary Tract Infection: Monitor for frequency, burning, discomfort, or incontinence. and Nursing will obtain urine sample for urinalysis and C&S when ordered. Aspiration: Clinical staff will monitor for coughing, drooling, congestion., Speech will evaluate swallowing and dsyphasia. and Nursing will monitor patient swallowing during meals. Falls: Patient will be evaluated for Fall Precautions and Patient will be placed on Fall Precautions as indicated per protocol. Skin Breakdown: Nursing will assess skin daily using assessment tool. and Nursing will place on Skin Breakdown Precautions as indicated. Pain: Clinical staff will assess patient's pain level per protocol., Medications will be given, if needed, and the pain level reassessed. and Other methods: Massage, distraction, decrease stimulus, etc. used PRN. Plan of Care Patient requires physician specializing in physical medicine and rehab oversight to provide close medical supervision of rehab issues including: Pain Management, Sleep Problems, Bowel and Bladder, Medical and co-morbidity Management, DVT prophylaxis, Rehabilitation Leadership and Coordination of treatment team Patient needs Physical Therapy: For a minimum of 1 hour and At least 5 out of 7 days Patient needs Physical Therapy to improve:: Mobility, Strengthening, Transfers, Stretching, ROM, Endurance, Stairs, Gait and Balance Patient needs Occupational Therapy: For a minimum of 1 hour and At least 5 out of 7 days Patient needs Occupational Therapy to improve ADL's incl.: Eating, Grooming, Bathing, Dressing, Toileting, Toilet transfers, Community Reintegration, Higher functioning activities, Household tasks, Adaptive Equipment, Splinting and Other activities as determined Patient requires speech therapy: For a minimum of 1 hour and At least 5 out of 7 days Patient requires speech therapy for: Swallowing, Cognition, Language Skills and Compensatory Strategies Patient requires 24/ Rehabilitation Nursing for: Pain Issues, Identifying and preventing risk factors, Monitoring and reporting current medical conditions, Assisting with ambulation, transfer, and all ADL's, Teaching patients about disease process and medications, Family teaching, Providing safe environment, Bowel and Bladder Issues, Skin integrity and Medication Management Patient needs Schedule Hanger/ Case Management for: Discharge Planning, Arranging Home Equipment or Services and Family Interventions Patient needs Dietary and Nutrition Services for: Adequate Nutrition, Nutritional Supplements and Nutritional Education Goals Goals Patient will remain: free from falls and or injury at time of discharge. Patient will ambulate: with LRD and - (Sup.) Patient will complete upper body dressing at: - (Sup with AE.) Patient will complete lower body dressing at: - (Sup with AE.) Patient will complete toilet transfer at: - (Sup.) Patient will complete toileting at: - (Sup.) Patient will perform Tub/Shower transfer at: - (Sup.) Patient will complete grooming at: - (Sup.) Patient will complete home management skills at: - (Sup.) Patient will have pain level of: of 3 or less Patient's skin will: remain intact and free from infection. Patient will receive: adequate nutrition. Discharge Planning Pt Prognosis for Sig. Practical Improv. w/in Reasonable Time: Good Estimated Length of stay (days): 14 Anticipated D/C Destination: Home with Outpt Therapy Was Preadmission Assessment Accurate?: Yes
[2024-02-15 17:15] VITALS: BP 118/69; PULSE 77; RESP 18; TEMP 36.6; O2SAT 98
[2024-02-15] MEDS: Latanoprost 0.005% 1 Bottle 1 DRP OPHTHALMIC (20:31)
[2024-02-15] MEDS: Atorvastatin Calcium 80 MG Tablet PO (20:32)
[2024-02-15 20:41] VITALS: BMI 26.4
[2024-02-15 22:00] VITALS: PULSE 77; RESP 17; O2SAT 98
[2024-02-16 05:19] LABS: Anion Gap 5 (5-15); BUN 28 mg/dL (7-18); BUN/Creat Ratio 21.7 RATIO (10-20); Calcium,Total 8.7 mg/dL (8.5-10.1); Chloride 111 mmol/L (98-107); Creatinine, Serum 1.29 mg/dL (0.70-1.30); EST Glomerular Filtration Rate 56 mL/min (>60); Est Glom Filt Rate - Afr Amer 68 mL/min (>60); Estimated Creatinine Clearance 41.66 ml/min; Glucose 100 mg/dL (74-106); Potassium 3.6 mmol/L (3.5-5.1); Sodium Level 141 mmol/L (136-145)
[2024-02-16] MEDS: Dorzolamide 2% 10ml Bottle 1 DRP OPHTHALMIC ×3 (05:50→20:22)
[2024-02-16 05:55] VITALS: BP 123/81; PULSE 80; RESP 16; TEMP 36.6; O2SAT 99
[2024-02-16] MEDS: Empagliflozin 10 MG Tablet PO (07:43)
[2024-02-16] MEDS: Furosemide 20 MG Tablet PO (07:43)
[2024-02-16] MEDS: APIXABAN 5 MG TABLET PO ×2 (07:43→20:21)
[2024-02-16] MEDS: Carvedilol 3.125 MG TABLET PO ×2 (07:43→20:21)
[2024-02-16] MEDS: SACUBITRIL/VALSARTAN 24/26 MG TABLET 1 EACH PO ×2 (07:44→20:21)
[2024-02-16] MEDS: Potassium Chloride Oral Tablet 20 MEQ PO (07:44)
[2024-02-16] MEDS: Aspirin 81 MG TAB.CHEW PO (07:44)
--- NOTE | 2024-02-16 08:02 | PN.REHAB_ITS ---
Subjective Subjective Patient seen, examined. No acute events overnight. He has no new problems, concerns, issues, complaints. No pain, slept well last night once he got settled. Objective Data Objective Data Vital Signs: Vital Signs Temp Pulse Resp BP Pulse Ox O2 Del Method 97.8 F 80 16 123/81 H 99 Room Air 02/16/24 05:55 02/16/24 05:55 02/16/24 05:55 02/16/24 05:55 02/16/24 05:55 02/16/24 05:55 Oxygen Delivery Method Room Air Weight: 85.842 kg Body Mass Index (BMI) 26.4 Intake & Output: Intake and Output for Last 24 Hours 02/14/24 02/15/24 02/16/24 23:59 23:59 23:59 Intake Total 340 / 340 840 / 840 500 / 500 Output Total 250 / 250 850 / 1050 800 / 800 Balance 90 / 90 -10 / -210 -300 / -300 Lab / Micro Data 02/15/24 05:15 02/16/24 04:05 Labs: Laboratory Results - last 24 hr 02/16/24 04:05: Sodium 141, Potassium 3.6, Chloride 111 H, Carbon Dioxide 25.0, Anion Gap 5, BUN 28 H, Creatinine 1.29, Estim Creat Clear Calc 41.66, Est GFR (MDRD) Af Amer 68, Est GFR (MDRD) Non-Af 56 L, BUN/Creatinine Ratio 21.7 H, Glucose 100, Calcium 8.7 Indicators for Scoring Admitted with or Primary Diagnosis of CVA/Stroke: Yes Hx of CVA/Stroke: Yes Modified [place] Score MRS Score at time of Evaluation: 4-Moderate/severe disability Physical Exam Const alert General Appearance: cooperative HEENT normocephalic Eyes PERRL and EOMs intact bilaterally Neck supple, no JVD and no carotid bruits Resp normal respiratory effort, normal air movement and clear to auscultation bilaterally Cardio regular rate and regular rhythm GI normal to inspection, nondistended, normoactive bowel sounds, non-tender and non-distended Extremity normal capillary refill General Extremity: Negative for edema Skin no rashes or lesions noted General Skin Exam: no breakdown Neuro Neuro Narrative: Mild right upper extremity hemiparesis Psych affect normal Appearance: appropriate Assessment & Plan Assessment/Plan (1) Debility: (2) CVA (cerebral vascular accident): (3) Right hemiparesis: (4) Chronic HFrEF (heart failure with reduced ejection fraction): (5) Depression: (6) Rheumatoid arthritis: (7) Obstructive sleep apnea: (8) Atrial fibrillation: (9) Essential (primary) hypertension: (10) Insomnia: (11) Glaucoma: (12) Hypokalemia: (13) Hyperlipidemia: QUALIFIERS: Hyperlipidemia type: mixed hyperlipidemia Qualified Code(s): E78.2 - Mixed hyperlipidemia (14) COPD (chronic obstructive pulmonary disease): PLAN: Plan 88 year old male with below past medical history hospitalized for stroke, right hemiparesis, complicated by acute on chronic HFrEF, admitted to for 3 hours daily rehabilitation, strengthening, prior to discharge home with . * Debility - PT/OT/ST. * Pain - Tylenol 1000mg q6 prn pain (1-10). * Bowel - senna/colace 2 tablets bid, MOM 30ml po x 1 prn, Dulcolax 10mg pr x 1 prn. * DVT prophylaxis - on Eliquis. * Stroke - Aspirin 81mg daily, Eliquis 5mg bid. * Hyperlipidemia - Atorvastatin 80mg qhs. * Chronic HFrEF - Coreg 3.125mg bid, Entresto 24/26mg bid, Jardiance 25mg daily, Furosemide 20mg daily. * Glaucoma - Trusopt 1gtt ou tid, Latanoprost 1gtt ou qhs. * COPD - Duoneb 3ml 4x/day prn. * Insomnia - Melatonin 3mg qhs prn.
[2024-02-16 13:10] VITALS: PULSE 71; RESP 16; O2SAT 98
[2024-02-16] MEDS: Ipratropium/Albuterol Sulfate 3 ML AMPUL.NEB INHALATION (13:10)
[2024-02-16 14:14] VITALS: BMI 26.4
[2024-02-16 17:08] VITALS: BP 122/58; PULSE 70; RESP 16; TEMP 37.1; O2SAT 97
[2024-02-16 19:56] VITALS: PULSE 75; RESP 16; O2SAT 97
[2024-02-16 20:08] VITALS: BMI 26.4
[2024-02-16] MEDS: Latanoprost 0.005% 1 Bottle 1 DRP OPHTHALMIC (20:20)
[2024-02-16] MEDS: Atorvastatin Calcium 80 MG Tablet PO (20:21)
[2024-02-16] MEDS: MELATONIN 3 MG TABLET PO (20:54)
[2024-02-17] MEDS: Dorzolamide 2% 10ml Bottle 1 DRP OPHTHALMIC ×3 (05:29→21:01)
[2024-02-17 05:37] VITALS: BMI 26.4
[2024-02-17 05:51] VITALS: BP 106/69; PULSE 78; RESP 15; TEMP 36.6; O2SAT 94
[2024-02-17] MEDS: Furosemide 20 MG Tablet PO (07:40)
[2024-02-17] MEDS: APIXABAN 5 MG TABLET PO ×2 (07:40→21:00)
[2024-02-17] MEDS: SACUBITRIL/VALSARTAN 24/26 MG TABLET 1 EACH PO ×2 (07:40→21:00)
[2024-02-17] MEDS: Aspirin 81 MG TAB.CHEW PO (07:40)
[2024-02-17] MEDS: Potassium Chloride Oral Tablet 20 MEQ PO (07:40)
[2024-02-17] MEDS: Empagliflozin 10 MG Tablet PO (07:40)
[2024-02-17] MEDS: Carvedilol 3.125 MG TABLET PO ×2 (07:40→21:00)
[2024-02-17 08:47] VITALS: PULSE 73; RESP 18; O2SAT 95
[2024-02-17] MEDS: Ipratropium/Albuterol Sulfate 3 ML AMPUL.NEB INHALATION (08:47)
[2024-02-17 13:27] VITALS: BMI 26.4
[2024-02-17 17:24] VITALS: BP 130/79; PULSE 65; RESP 16; TEMP 36.6; O2SAT 98
[2024-02-17 20:49] VITALS: BMI 26.4
[2024-02-17] MEDS: Latanoprost 0.005% 1 Bottle 1 DRP OPHTHALMIC (21:01)
[2024-02-17] MEDS: Atorvastatin Calcium 80 MG Tablet PO (21:01)
[2024-02-17 22:00] VITALS: PULSE 66; RESP 16; O2SAT 98
[2024-02-18] MEDS: Dorzolamide 2% 10ml Bottle 1 DRP OPHTHALMIC ×2 (05:45→13:07)
[2024-02-18 05:52] VITALS: BP 126/78; PULSE 68; RESP 15; TEMP 36.6; O2SAT 96
[2024-02-18] MEDS: SACUBITRIL/VALSARTAN 24/26 MG TABLET 1 EACH PO ×2 (07:49→21:25)
[2024-02-18] MEDS: Potassium Chloride Oral Tablet 20 MEQ PO (07:49)
[2024-02-18] MEDS: Carvedilol 3.125 MG TABLET PO ×2 (07:50→21:25)
[2024-02-18] MEDS: Empagliflozin 10 MG Tablet PO (07:50)
[2024-02-18] MEDS: APIXABAN 5 MG TABLET PO ×2 (07:50→21:25)
[2024-02-18] MEDS: Furosemide 20 MG Tablet PO (07:50)
[2024-02-18] MEDS: Aspirin 81 MG TAB.CHEW PO (07:50)
[2024-02-18 08:12] VITALS: O2SAT 96
--- NOTE | 2024-02-18 09:58 | PCM.PROGNOTE ---
Subjective Subjective Ted was seen on TEAM rounds today. His Shannan was present in the room. All questions were answered to their satisfaction. Afebrile VSS -blood pressure is within goal. Heart rate is within normal limits. Maintaining appropriate oxygen saturation on RA Oral intake - FOOD 75 to 100% of all meals. FLUIDS better fluid intake for the past 3 days. Discussed with nursing - no problems that need addressed Reviewed the THERAPY notes Medication list reviewed. EMR reviewed. Patient was admitted to acute rehab on 02/14/2024 with diagnosis of debility secondary to stroke. Echocardiogram on 02/11/2024 showed a mildly dilated left ventricle with severe generalized hypokinesis and an EF of 25%. There was severe enlargement of the left atrium. There was mild concentric LVH. Neurology consulted and recommended aspirin, continue Eliquis, high intensity statin. Past medical history is significant for COPD, coronary artery disease with history of DC, rheumatoid arthritis, obstructive sleep apnea on BiPAP, pacemaker insertion/AICD, chronic congestive heart failure with reduced ejection fraction, atrial fibrillation, glaucoma, chronic anticoagulation, history of strokes. Lab from 02/15/2024 showed low hemoglobin at 12.6 (has been low in the past as well). MCV is within normal limits but the RDW is elevated. Platelets are within normal limits. Baseline creatinine over the past year has ranged from 1.16-1.47. GFR is 56 and creatinine clearance is 41.66. LDL on 02/12/2024 was 34 with an HDL of 56. Triglycerides were 104. TSH was mildly increased to 4.17. Objective Data Objective Data Vital Signs: Vital Signs Temp Pulse Resp BP Pulse Ox O2 Del Method 97.9 F 68 15 126/78 H 96 Room Air 02/18/24 05:52 02/18/24 05:52 02/18/24 05:52 02/18/24 05:52 02/18/24 08:12 02/18/24 08:12 Oxygen Delivery Method Room Air Weight: 188 lb 11.451 oz Body Mass Index (BMI) 26.4 Intake & Output: Intake and Output for Last 24 Hours 02/16/24 02/17/24 02/18/24 23:59 23:59 23:59 Intake Total 1300 / 1300 1540 / 1540 710 / 710 Output Total 1830 / 1830 2080 / 2080 700 / 700 Balance -530 / -530 -540 / -540 Lab / Micro Data 02/15/24 05:15 02/16/24 04:05 Physical Exam Const alert, oriented x3 and no apparent distress General Appearance: cooperative HEENT moist oral mucous membranes HEENT Narrative: moderate hearing loss Eyes PERRL and EOMs intact bilaterally Eyes Narrative: No scleral icterus, no conjunctival injection, no discharge from the eyes. Neck supple Resp normal respiratory effort and clear to auscultation bilaterally Effort and Inspection: Negative for tachypneic or respiratory distress Cardio Cardio Narrative: Irregular irregular rhythm with controlled ventricular response. No murmur. No gallop. GI normal to inspection, nondistended, normoactive bowel sounds, soft to palpation and non-tender GI Narrative: No guarding with palpation. Extremity no calf tenderness General Extremity: Negative for edema Skin Rashes: no rashes Neuro Neuro Narrative: Right side ataxia, no facial asymmetry. No extinction. No sensory deficits and no focal weakness. Psych affect normal Assessment & Plan Assessment/Plan (1) Debility: (2) Ischemic cerebrovascular accident (CVA): (3) Speech disturbance: QUALIFIERS: Speech disturbance type: slurred speech Qualified Code(s): R47.81 - Slurred speech (4) Chronic HFrEF (heart failure with reduced ejection fraction): (5) History of atrial fibrillation: (6) Obstructive sleep apnea: (7) History of PTCA 1: (8) History of coronary artery bypass graft: (9) Chronic anticoagulation: PLAN: Plan 1. Continue therapy 2. If he has poor sleep again tonight with Melatonin will try Trazodone. There is only 1 PVR on the chart and it is 0. If I start Trazodone will have nursing do 3 more PVR's. 3. Blood pressure is well-controlled and at goal. Charges/Coding Visit Charges Inpatient E&M: 90631 Subs Hosp L2
--- NOTE | 2024-02-18 12:47 | CASEMGMT ---
Social Work IDT met with patient and for Team meeting. Discussed patient's progress in PT/OT/ST/SN. Educated to [facility] insurance with NRD 02/22, updating every 7 days, and IDT is responsible for setting DC date. ST noted pt's cognitive deficits, short term memory and recall poor insight to deficits. PT/OT note pt's high fall risk and instability, needing a FWW, vs no AD prior. 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 SW to send that referral at [place]. cannot provide heavy physical assistance but can provid CGA and double checking pt with meds and finances. Offered to attend therapy training closer to [place]. Will ReTeam next week. SW will continue to follow. After Team meeting, SW revisited with pt and to have discussion about grandson living with them and potential for him to be a visitor as there is public record of grandson being a registered sex offender. This worker explored, (corrected to great-grandson)'s history and record. Both confirmed pt's registration status. SW inquired about visitation plans. /pt stated great-grandson leads an isolated lifestyle and typically goes to work and comes home. GGson has not visited pt yet and does not plan to. BEHZAD educated pt/ to [facility] Registered Sex Offender policy in regards to visitation. Explained there are no restrictions to visitation, but the appropriate parties would need to be notified to ensure a smooth visit. Provided with this worker's contact information and requested to contact this worker if GGson would like to visit. Pt/ expressed understanding. BEHZAD thanked pt/ for sharing information with this worker, empathized with situation, and will continue to follow for DC planning and support. BEHZAD collaborated with nursery school attendant Management and no further action is necessary at this time. Bonnie Burgess, REZA VASQUEZW
[2024-02-18 12:48] VITALS: BMI 26.4
[2024-02-18 17:44] VITALS: BP 109/62; PULSE 70; RESP 17; TEMP 36.8; O2SAT 96
[2024-02-18] MEDS: Senna/Docusate Sodium 1 Tablet 2 TABLET PO (21:24)
[2024-02-18] MEDS: Atorvastatin Calcium 80 MG Tablet PO (21:25)
[2024-02-18] MEDS: MELATONIN 3 MG TABLET PO (21:25)
[2024-02-18] MEDS: Latanoprost 0.005% 1 Bottle 1 DRP OPHTHALMIC (21:26)
[2024-02-19 06:00] VITALS: BP 117/73; PULSE 67; RESP 16; TEMP 36.3; O2SAT 100
[2024-02-19] MEDS: Aspirin 81 MG TAB.CHEW PO (07:56)
[2024-02-19] MEDS: Empagliflozin 10 MG Tablet PO (07:56)
[2024-02-19] MEDS: APIXABAN 5 MG TABLET PO ×2 (07:56→21:11)
[2024-02-19] MEDS: Senna/Docusate Sodium 1 Tablet 2 TABLET PO (07:56)
[2024-02-19] MEDS: Potassium Chloride Oral Tablet 20 MEQ PO (07:56)
[2024-02-19] MEDS: Furosemide 20 MG Tablet PO (07:57)
[2024-02-19] MEDS: SACUBITRIL/VALSARTAN 24/26 MG TABLET 1 EACH PO ×2 (07:57→21:11)
[2024-02-19] MEDS: Carvedilol 3.125 MG TABLET PO ×2 (07:57→21:10)
[2024-02-19 08:00] VITALS: O2SAT 96
[2024-02-19 08:07] VITALS: BP 122/71; PULSE 82
[2024-02-19 08:08] VITALS: BMI 26.4
[2024-02-19] MEDS: Dorzolamide 2% 10ml Bottle 1 DRP OPHTHALMIC ×3 (09:45→17:45)
[2024-02-19 17:47] VITALS: BP 132/72; PULSE 70; RESP 16; TEMP 36.6; O2SAT 96
[2024-02-19] MEDS: traZODone 50 MG Tablet PO (21:10)
[2024-02-19] MEDS: Atorvastatin Calcium 80 MG Tablet PO (21:11)
[2024-02-19] MEDS: Latanoprost 0.005% 1 Bottle 1 DRP OPHTHALMIC (21:12)
[2024-02-20 03:24] VITALS: BMI 26.4
[2024-02-20 06:00] VITALS: BP 135/81; PULSE 77; RESP 18; TEMP 36.3; O2SAT 100
[2024-02-20 07:59] VITALS: PULSE 55; RESP 18; O2SAT 97
[2024-02-20] MEDS: Ipratropium/Albuterol Sulfate 3 ML AMPUL.NEB INHALATION (07:59)
[2024-02-20] MEDS: Carvedilol 3.125 MG TABLET PO ×2 (09:50→20:40)
[2024-02-20] MEDS: Furosemide 20 MG Tablet PO (09:50)
[2024-02-20] MEDS: Aspirin 81 MG TAB.CHEW PO (09:50)
[2024-02-20] MEDS: Dorzolamide 2% 10ml Bottle 1 DRP OPHTHALMIC ×3 (09:50→17:00)
[2024-02-20] MEDS: APIXABAN 5 MG TABLET PO ×2 (09:50→20:40)
[2024-02-20] MEDS: SACUBITRIL/VALSARTAN 24/26 MG TABLET 1 EACH PO ×2 (09:50→20:41)
[2024-02-20] MEDS: Empagliflozin 10 MG Tablet PO (09:50)
[2024-02-20] MEDS: Potassium Chloride Oral Tablet 20 MEQ PO (09:50)
[2024-02-20 10:07] VITALS: BP 106/69; PULSE 80
[2024-02-20 13:34] VITALS: BMI 26.4
[2024-02-20 17:58] VITALS: BP 117/66; PULSE 74; RESP 18; TEMP 36.6; O2SAT 97
[2024-02-20] MEDS: traZODone 50 MG Tablet PO (20:39)
[2024-02-20] MEDS: Latanoprost 0.005% 1 Bottle 1 DRP OPHTHALMIC (20:41)
[2024-02-20] MEDS: Atorvastatin Calcium 80 MG Tablet PO (20:41)
[2024-02-21 02:04] VITALS: BMI 26.4
[2024-02-21 05:51] VITALS: BP 116/70; PULSE 77; RESP 17; TEMP 36.6
[2024-02-21] MEDS: Potassium Chloride Oral Tablet 20 MEQ PO (07:33)
[2024-02-21] MEDS: SACUBITRIL/VALSARTAN 24/26 MG TABLET 1 EACH PO ×2 (07:33→21:36)
[2024-02-21] MEDS: Empagliflozin 10 MG Tablet PO (07:33)
[2024-02-21] MEDS: APIXABAN 5 MG TABLET PO ×2 (07:33→21:36)
[2024-02-21] MEDS: Aspirin 81 MG TAB.CHEW PO (07:33)
[2024-02-21] MEDS: Furosemide 20 MG Tablet PO (07:33)
[2024-02-21] MEDS: Dorzolamide 2% 10ml Bottle 1 DRP OPHTHALMIC ×3 (07:33→17:08)
[2024-02-21] MEDS: Carvedilol 3.125 MG TABLET PO ×2 (07:34→21:36)
[2024-02-21 07:58] VITALS: O2SAT 95
[2024-02-21 08:00] VITALS: BP 133/77; PULSE 74
[2024-02-21] MEDS: Menthol/Lanolin/Calamine/Znox 113 GM Tube 1 APPLIC TOPICAL ×2 (09:55→21:40)
[2024-02-21 15:51] VITALS: BMI 26.4
[2024-02-21 18:00] VITALS: BP 114/61; PULSE 74; RESP 16; TEMP 36.4; O2SAT 97
[2024-02-21 18:46] VITALS: PULSE 69; RESP 16; O2SAT 98
[2024-02-21] MEDS: Ipratropium/Albuterol Sulfate 3 ML AMPUL.NEB INHALATION (18:46)
[2024-02-21] MEDS: traZODone 50 MG Tablet PO (21:36)
[2024-02-21] MEDS: Atorvastatin Calcium 80 MG Tablet PO (21:36)
[2024-02-21] MEDS: Latanoprost 0.005% 1 Bottle 1 DRP OPHTHALMIC (21:36)
[2024-02-22 06:00] VITALS: BP 122/53; PULSE 70; RESP 18; TEMP 36.6; O2SAT 100
[2024-02-22] MEDS: Aspirin 81 MG TAB.CHEW PO (07:45)
[2024-02-22] MEDS: Senna/Docusate Sodium 1 Tablet 2 TABLET PO (07:45)
[2024-02-22] MEDS: Carvedilol 3.125 MG TABLET PO ×2 (07:45→21:08)
[2024-02-22] MEDS: Potassium Chloride Oral Tablet 20 MEQ PO (07:45)
[2024-02-22] MEDS: APIXABAN 5 MG TABLET PO ×2 (07:45→21:08)
[2024-02-22] MEDS: Empagliflozin 10 MG Tablet PO (07:45)
[2024-02-22] MEDS: SACUBITRIL/VALSARTAN 24/26 MG TABLET 1 EACH PO ×2 (07:45→21:08)
[2024-02-22] MEDS: Furosemide 20 MG Tablet PO (07:46)
[2024-02-22] MEDS: Dorzolamide 2% 10ml Bottle 1 DRP OPHTHALMIC ×3 (07:46→17:10)
[2024-02-22 07:49] VITALS: BP 113/53; PULSE 54
--- NOTE | 2024-02-22 07:49 | PCM.PROGNOTE ---
Subjective Subjective Afebrile VSS -blood pressure is within goal. Maintaining appropriate oxygen saturation on RA Oral intake - FOOD good FLUIDS good Discussed with nursing - no problems that need addressed. Sleeping better with trazodone. Reviewed the THERAPY notes Medication list reviewed. Tells me that he is sleeping well now with the trazodone. Does not feel hung over in the AM. Denies lightheadedness, vertigo, cephalgia, chest pain, shortness of breath, cough, nausea/vomiting/abdominal pain, dysuria and calf pain. Objective Data Objective Data Vital Signs: Vital Signs Temp Pulse Resp BP Pulse Ox O2 Del Method 97.9 F 54 L 18 113/53 L 100 CPAP 02/22/24 06:00 02/22/24 07:49 02/22/24 06:00 02/22/24 07:49 02/22/24 06:00 02/22/24 06:00 Oxygen Delivery Method CPAP Weight: 188 lb 11.451 oz Body Mass Index (BMI) 26.4 Intake & Output: Intake and Output for Last 24 Hours 02/20/24 02/21/24 02/22/24 23:59 23:59 23:59 Intake Total 1690 / 2240 2400 / 2400 Output Total 1950 / 2250 1850 / 1850 400 / 400 Balance -260 / -10 550 / 550 -400 / -400 Lab / Micro Data 02/15/24 05:15 02/16/24 04:05 Physical Exam Const alert, oriented x3 and no apparent distress General Appearance: cooperative HEENT moist oral mucous membranes HEENT Narrative: moderate hearing loss Eyes PERRL and EOMs intact bilaterally Eyes Narrative: No scleral icterus, no conjunctival injection, no discharge from the eyes. Neck supple Resp normal respiratory effort and clear to auscultation bilaterally Effort and Inspection: Negative for tachypneic or respiratory distress Cardio Cardio Narrative: Irregular irregular rhythm with controlled ventricular response. No murmur. No gallop. GI normal to inspection, nondistended, normoactive bowel sounds, soft to palpation and non-tender GI Narrative: No guarding with palpation. Extremity no calf tenderness General Extremity: Negative for edema Skin Rashes: no rashes Psych affect normal Assessment & Plan Assessment/Plan (1) Debility: (2) Ischemic cerebrovascular accident (CVA): (3) Speech disturbance: QUALIFIERS: Speech disturbance type: slurred speech Qualified Code(s): R47.81 - Slurred speech (4) Chronic HFrEF (heart failure with reduced ejection fraction): (5) History of atrial fibrillation: (6) Obstructive sleep apnea: (7) History of PTCA 1: (8) History of coronary artery bypass graft: (9) Chronic anticoagulation: PLAN: Plan 1. Continue therapy 2. CBC and BMP in the a.m. 3. No changes to the drug regimen at this time. 4. Continue trazodone 50 mg nightly for insomnia. Postvoid residuals were all less than 200. Charges/Coding Visit Charges Inpatient E&M: 85860 Subs Hosp L1
[2024-02-22] MEDS: Menthol/Lanolin/Calamine/Znox 113 GM Tube 1 APPLIC TOPICAL ×2 (08:06→21:13)
[2024-02-22 09:51] VITALS: BMI 26.4
--- NOTE | 2024-02-22 14:12 | CASEMGMT ---
Social Work SW received call from , frantically speaking, not having flow to her conversation or identified herself at the beginning of the call. SW instructed to speak slower and asked clarifying questions. continued in this manner for the majority of the phone call and SW continued redirecting to ensure accuracy of the information from . SW concluded 's concerns. explained pt had a visitor in the morning, a gentleman that repeatedly denied providing any identifiable information on this gentleman because she didn't want to get him trouble for visiting when he shouldn't. This visitor was present when the Dr spoke to the pt. The Dr allegedly ask the pt how he felt he was doing, and if he could go home. Which, the pt replied, he was ready to go home,but had a fear of falling. 's complaint was that she felt she should be present for those conversations and needs to be more informed of pt's progress. SW reminded that of the Team meeting she was present at three days prior that provided all the information of pt's progress. Explained there has not been major changes since that meeting, and another meeting will be held this upcoming (02/24). then complained about pt having bed sores on his buttocks, stating no wonder he has bed sores from all the sitting he does. That's all she sees him doing when she visits. BEHZAD explained pt is participating in three hours of daily therapy, that happens prior to visiting hours. Empathized that it is difficult to see pt progressing since does not see him in therapy, and sees him resting in the evenings during visiting hours. SW referred to nursing to discuss any bed sores. SW offered for to attend therapy training to see pt's therapy and progress. agreeable. SW spoke with therapy and scheduled for the following day, 02/22. appreciative and looking forward to visit. -- BEHZAD spoke with IDT during afternoon rounds about the phone conversation with . Dr denied having any visitor present during conversation with pt. Nursing denied seeing any visitors outside of visiting hours. IDT is concerned with the safety of pt and 's cognition returning home. SW to follow up with DC planning after therapy training. Bonnie Burgess, PRE PRESS PROOFER RADIOLOGY TECHNOLOGIST
[2024-02-22 17:28] VITALS: BP 102/59; PULSE 66; RESP 19; TEMP 5425.8; TEMP 9798.5; O2SAT 97
[2024-02-22 19:32] VITALS: PULSE 69; RESP 18; O2SAT 97
[2024-02-22 19:33] VITALS: BMI 26.4
[2024-02-22] MEDS: Acetaminophen 500 MG Tablet 1000 MG PO (19:47)
[2024-02-22] MEDS: Atorvastatin Calcium 80 MG Tablet PO (21:07)
[2024-02-22] MEDS: Latanoprost 0.005% 1 Bottle 1 DRP OPHTHALMIC (21:07)
[2024-02-22] MEDS: traZODone 50 MG Tablet PO (21:08)
[2024-02-23 05:51] LABS: Hematocrit 37.2 % (40-54); Hemoglobin 12.1 g/dL (13.0-16.5); Mean Corp Hgb Conc 32.5 g/dL (32-36); Mean Corpuscular Hgb 31.3 pg (27.0-32.0); Mean Corpuscular Volume 96.4 fL (80-94); Mean Platelet Vol. 10.3 fl (6.2-12.0); Platelet Count 215 K/mm3 (150-450); RBC Distribution Width CV 14.5 % (11.6-14.6); RBC Distribution Width SD 51.1 fl (35.1-43.9); Red Blood Count 3.86 M/mm3 (4.6-6.2); White Blood Count 5.4 K/mm3 (4.4-11.0)
[2024-02-23 06:00] VITALS: BP 145/75; PULSE 61; RESP 17; TEMP 36.3; O2SAT 97
[2024-02-23 06:23] LABS: Anion Gap 2 (5-15); BUN 25 mg/dL (7-18); BUN/Creat Ratio 19.7 RATIO (10-20); Calcium,Total 8.8 mg/dL (8.5-10.1); Chloride 113 mmol/L (98-107); Creatinine, Serum 1.27 mg/dL (0.70-1.30); EST Glomerular Filtration Rate 57 mL/min (>60); Est Glom Filt Rate - Afr Amer 69 mL/min (>60); Estimated Creatinine Clearance 42.31 ml/min; Glucose 96 mg/dL (74-106); Potassium 3.9 mmol/L (3.5-5.1); Sodium Level 142 mmol/L (136-145)
[2024-02-23 07:13] VITALS: PULSE 74; RESP 16
[2024-02-23] MEDS: Ipratropium/Albuterol Sulfate 3 ML AMPUL.NEB INHALATION (07:13)
[2024-02-23] MEDS: Potassium Chloride Oral Tablet 20 MEQ PO (08:25)
[2024-02-23] MEDS: Carvedilol 3.125 MG TABLET PO ×2 (08:25→22:11)
[2024-02-23] MEDS: Furosemide 20 MG Tablet PO (08:25)
[2024-02-23] MEDS: Aspirin 81 MG TAB.CHEW PO (08:25)
[2024-02-23] MEDS: APIXABAN 5 MG TABLET PO ×2 (08:26→22:11)
[2024-02-23] MEDS: Senna/Docusate Sodium 1 Tablet 2 TABLET PO (08:26)
[2024-02-23] MEDS: SACUBITRIL/VALSARTAN 24/26 MG TABLET 1 EACH PO ×2 (08:26→22:11)
[2024-02-23] MEDS: Empagliflozin 10 MG Tablet PO (08:26)
[2024-02-23] MEDS: Dorzolamide 2% 10ml Bottle 1 DRP OPHTHALMIC ×3 (08:26→17:03)
[2024-02-23] MEDS: Menthol/Lanolin/Calamine/Znox 113 GM Tube 1 APPLIC TOPICAL ×2 (08:29→22:12)
[2024-02-23 08:30] VITALS: BP 108/65; PULSE 73
--- NOTE | 2024-02-23 09:30 | PN_ITS ---
Subjective Subjective Afebrile VSS - Maintaining appropriate oxygen saturation on RA Oral intake - FOOD good FLUIDS good Discussed with nursing - there have been some issues with Shannan. She insists there was a man in the room yesterday and that they have been talking to the doctor and getting updates. There were no visitors yesterday and no one from the family has contacted me. Ted continues to have cognitive dysfunction. Family has not talked with the SW. Rehab TEAM has significant concerns about Ted and Shannan's safety at home. Shannan came in for family training today........she did not seem confused to me today. She was able to recall things about Ted's hx that Ted was not able to control. Reviewed the THERAPY notes Medication list reviewed. All lab from this morning was personally reviewed. White blood cell count is normal at 5.4 and the hemoglobin is 12.1 which is stable. Platelets are normal at 215,000. Sodium is 142 and the potassium is 3.9. BUN is 25 and stable and the creatinine is 1.27 and stable. Ted denies lightheadedness, vertigo, CP, palpitations, SOB at rest, SOB with exertion, cough, nausea, vomiting, abd pain, diarrhea, constipation, dysuria, calf pain and ankle swelling. He is unaware of cognitive deficits but, tells me that he has a bad memory. Objective Data Objective Data Vital Signs: Vital Signs Temp Pulse Resp BP Pulse Ox O2 Del Method 97.3 F L 73 16 108/65 97 Room Air 02/23/24 06:00 02/23/24 08:30 02/23/24 07:13 02/23/24 08:30 02/23/24 06:00 02/23/24 06:00 Oxygen Delivery Method Room Air Weight: 188 lb 11.451 oz Body Mass Index (BMI) 26.4 Intake & Output: Intake and Output for Last 24 Hours 02/21/24 02/22/24 02/23/24 23:59 23:59 23:59 Intake Total 2400 / 2400 1240 / 1240 440 / 440 Output Total 1850 / 1850 1500 / 1500 1400 / 1400 Balance 550 / 550 -260 / -260 -960 / -960 Lab / Micro Data 02/23/24 05:34 02/23/24 05:34 Labs: Laboratory Results - last 24 hr 02/23/24 05:34: WBC 5.4, RBC 3.86 L, Hgb 12.1 L, Hct 37.2 L, MCV 96.4 H, MCH 31.3, MCHC 32.5, RDW Std Deviation 51.1 H, RDW Coeff of Theresa 14.5, Plt Count 215, MPV 10.3, Sodium 142, Potassium 3.9, Chloride 113 H, Carbon Dioxide 27.0, Anion Gap 2 L, BUN 25 H, Creatinine 1.27, Estim Creat Clear Calc 42.31, Est GFR (MDRD) Af Amer 69, Est GFR (MDRD) Non-Af 57 L, BUN/Creatinine Ratio 19.7, Glucose 96, Calcium 8.8 Physical Exam Const alert and no apparent distress General Appearance: cooperative HEENT moist oral mucous membranes Resp normal respiratory effort and clear to auscultation bilaterally Effort and Inspection: Negative for tachypneic or respiratory distress Cardio Cardio Narrative: Irregular irregular rhythm with controlled ventricular response. No murmur. No gallop. GI normal to inspection, nondistended, normoactive bowel sounds, soft to palpation and non-tender GI Narrative: No guarding with palpation. Extremity no calf tenderness General Extremity: Negative for edema Skin Rashes: no rashes Psych affect normal Assessment & Plan Assessment/Plan (1) Debility: (2) Ischemic cerebrovascular accident (CVA): (3) Speech disturbance: QUALIFIERS: Speech disturbance type: slurred speech Qualified Code(s): R47.81 - Slurred speech (4) Chronic HFrEF (heart failure with reduced ejection fraction): (5) History of atrial fibrillation: (6) Obstructive sleep apnea: (7) History of PTCA 1: (8) History of coronary artery bypass graft: (9) Chronic anticoagulation: PLAN: Plan 1. Continue therapy 2. Will need to dig into the home situation more deeply. They have a grandson who lives with them but, he works and they would not have 24/11 supervision. 3. No driving for [place]. Shannan drives. 4. Recommend that if Ted wants to continue to drive going forward that he attend the drivers rehab program at [facility] to make sure that he is safe. 5. HHC at [place] for a couple weeks........SN/SW to evaluate the home situation and referral to APS if there is concern that Faye are not safe to be home alone without supervision. Shannan did tell me when she was leaving after family training today that she feels he is still too unsteady ambulating to return home yet. Charges/Coding Visit Charges Inpatient E&M: 01679 Subs Hosp L1
--- NOTE | 2024-02-23 10:25 | CASEMGMT ---
Social Work SW visited pt and during therapy session. pleased with pt's progress and stated I didn't realize the therapy was so intense. This is a workout. SW agreed to the intensity of the therapy and confirmed it is helpful to see the therapy personally. SW informed this worker would call to follow up with afterward. appreciative. Bonnie Burgess, MANUFACTURING SR ENGINEER PHARMACY BILLING ADJUDICATOR
--- NOTE | 2024-02-23 11:25 | CCN.REFER ---
Social Work SW visited pt and during therapy session. pleased with pt's progress and stated I didn't realize the therapy was so intense. This is a workout. SW agreed to the intensity of the therapy and confirmed it is helpful to see the therapy personally. SW informed this worker would call to follow up with afterward. appreciative. Bonnie Burgess, SURFACE HYDROLOGIST AUTOMATIC EQUIPMENT TECHNICIAN
[2024-02-23 12:09] VITALS: BMI 26.4
[2024-02-23 17:07] VITALS: BP 112/60; PULSE 66; RESP 18; TEMP 36.4; O2SAT 98
[2024-02-23] MEDS: traZODone 50 MG Tablet PO (19:50)
[2024-02-23 20:10] VITALS: BMI 26.4
[2024-02-23 20:17] VITALS: PULSE 66; RESP 18; O2SAT 98
[2024-02-23] MEDS: Latanoprost 0.005% 1 Bottle 1 DRP OPHTHALMIC (22:10)
[2024-02-23] MEDS: Atorvastatin Calcium 80 MG Tablet PO (22:11)
[2024-02-24 05:38] VITALS: BMI 26.5
[2024-02-24 05:42] VITALS: BP 152/66; PULSE 80; RESP 16; TEMP 36.4; O2SAT 98
[2024-02-24 07:00] VITALS: PULSE 70; RESP 16; O2SAT 97
[2024-02-24] MEDS: Ipratropium/Albuterol Sulfate 3 ML AMPUL.NEB INHALATION (07:00)
[2024-02-24] MEDS: Carvedilol 3.125 MG TABLET PO ×2 (07:50→21:24)
[2024-02-24] MEDS: Furosemide 20 MG Tablet PO (07:50)
[2024-02-24] MEDS: Senna/Docusate Sodium 1 Tablet 2 TABLET PO (07:50)
[2024-02-24] MEDS: SACUBITRIL/VALSARTAN 24/26 MG TABLET 1 EACH PO ×2 (07:51→21:23)
[2024-02-24] MEDS: APIXABAN 5 MG TABLET PO ×2 (07:51→21:24)
[2024-02-24] MEDS: Empagliflozin 10 MG Tablet PO (07:51)
[2024-02-24] MEDS: Aspirin 81 MG TAB.CHEW PO (07:51)
[2024-02-24] MEDS: Dorzolamide 2% 10ml Bottle 1 DRP OPHTHALMIC ×3 (07:51→17:47)
[2024-02-24] MEDS: Potassium Chloride Oral Tablet 20 MEQ PO (07:51)
--- NOTE | 2024-02-24 11:13 | CASEMGMT ---
Social Work SW left VM with to follow up on therapy training and discuss DC planning. Bonnie Burgess, SONAR WATCHSTANDER TELECOMMUNICATIONS CONSULTANT
[2024-02-24 13:24] VITALS: BMI 26.5
[2024-02-24 17:51] VITALS: BP 121/68; PULSE 66; RESP 16; TEMP 36.7; O2SAT 98
[2024-02-24 20:50] VITALS: BMI 26.5
[2024-02-24] MEDS: Latanoprost 0.005% 1 Bottle 1 DRP OPHTHALMIC (21:22)
[2024-02-24] MEDS: Menthol/Lanolin/Calamine/Znox 113 GM Tube 1 APPLIC TOPICAL (21:24)
[2024-02-24] MEDS: traZODone 50 MG Tablet PO (21:24)
[2024-02-24] MEDS: Atorvastatin Calcium 80 MG Tablet PO (21:25)
[2024-02-24 21:36] VITALS: PULSE 64; RESP 16
[2024-02-25 06:00] VITALS: BP 146/76; PULSE 68; RESP 16; TEMP 36.3; O2SAT 98
[2024-02-25 07:38] VITALS: PULSE 71; RESP 18; O2SAT 98
[2024-02-25] MEDS: Ipratropium/Albuterol Sulfate 3 ML AMPUL.NEB INHALATION (07:38)
[2024-02-25] MEDS: Potassium Chloride Oral Tablet 20 MEQ PO (08:15)
[2024-02-25] MEDS: Empagliflozin 10 MG Tablet PO (08:15)
[2024-02-25] MEDS: Furosemide 20 MG Tablet PO (08:16)
[2024-02-25] MEDS: Aspirin 81 MG TAB.CHEW PO (08:16)
[2024-02-25] MEDS: Dorzolamide 2% 10ml Bottle 1 DRP OPHTHALMIC (08:16)
[2024-02-25] MEDS: SACUBITRIL/VALSARTAN 24/26 MG TABLET 1 EACH PO ×2 (08:16→20:49)
[2024-02-25] MEDS: Carvedilol 3.125 MG TABLET PO ×2 (08:16→20:48)
[2024-02-25] MEDS: APIXABAN 5 MG TABLET PO ×2 (08:16→20:48)
[2024-02-25] MEDS: Menthol/Lanolin/Calamine/Znox 113 GM Tube 1 APPLIC TOPICAL ×2 (08:19→20:49)
--- NOTE | 2024-02-25 10:08 | CASEMGMT ---
Social Work has not returned this worker's call. Team meeting today. SW spoke with pt at bedside. SW inquired how pt felt he was doing in therapy and readiness to DC home. Pt states he is ready to DC home, but doesn't want to be a burden on his . SW inquired to pt how he felt therapy training went with his . Pt replied, sure, she can come in and see how I'm doing in therapy. SW informed pt that already did that two days ago. Pt has no recollection. SW informed of team meeting today and will discuss with team and . SW inquired about pt's visitors during stay. pt denies any visitors coming outside of the visiting hours and that his great-grandson, Jed, has not visited. pt reports other family and restorationism members have visited outside of his . SW collaborated with ST and pt could identify all accurate safety responses and problem solving scenarios. Pt could be home alone for short periods of time, as he does understand the use of the call-light and asking for help before getting up. However, will need to assist pt with all IADLs. SW to recommend a medical alert at [place]. SW will continue to follow. Bonnie Burgess, REZA VASQUEZW
--- NOTE | 2024-02-25 10:46 | EX.PCM.PN.RE ---
Subjective Subjective Ted was seen on team rounds today. His Shannan and his granddaughter Amairani were present in the room for rounds. Afebrile VSS -vital signs are being checked twice a day. Systolic is often elevated above 130. Diastolics are within normal limits. Heart rate is normal. Maintaining appropriate oxygen saturation on RA. Compliant with CPAP. Oral intake - FOOD good FLUIDS good Discussed with nursing - no problems that need addressed Reviewed the THERAPY notes Medication list reviewed. Ted denies lightheadedness, chest pain, shortness of breath, abdominal pain, dysuria and calf tenderness. His reports that he has a chronic cough and sneezing at home. He takes OTC cough medicine every night at home for cough. they have a pet at home. She has noted that he is not coughing as much in the hospital and none of the staff have noticed chronic cough. He is getting an ipratropium aerosol once daily at 06 100 since being in the hospital. Shannan tells me that he does it once a day at home and Ted says he does not do it at home. No PFT's on the chart. ? 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 states that only [address] chest in November of 2023 showed findings suggestive of mild interstitial pulmonary edema, pleural soft tissue thickening versus mass on the left with associated calcifications which is not significantly changed compared to prior CT scans. Review of the EMR shows no PFTs were ever done at [facility] and he has not had a consult with pulmonary medicine. He quit smoking in 1974. He takes the cough syrup at night and the cough seems worse at night if he does not take it. Objective Data Objective Data Vital Signs: Vital Signs Temp Pulse Resp BP Pulse Ox O2 Del Method 97.4 F L 71 18 146/76 H 98 Room Air 02/25/24 06:00 02/25/24 07:38 02/25/24 07:38 02/25/24 06:00 02/25/24 07:38 02/25/24 07:38 Oxygen Delivery Method Room Air Weight: 189 lb 6.033 oz Body Mass Index (BMI) 26.5 Intake & Output: Intake and Output for Last 24 Hours 02/23/24 02/24/24 02/25/24 23:59 23:59 23:59 Intake Total 1780 / 1780 1380 / 1680 710 / 710 Output Total 1850 / 1850 1969 / 0 700 / 700 Balance -70 / -70 -590 / -490 Lab / Micro Data 02/23/24 05:34 02/23/24 05:34 Indicators for Scoring Admitted with or Primary Diagnosis of CVA/Stroke: Yes Hx of CVA/Stroke: Yes Modified [place] Score MRS Score at time of Evaluation: 4-Moderate/severe disability Physical Exam Const alert and no apparent distress General Appearance: cooperative HEENT moist oral mucous membranes Resp normal respiratory effort and clear to auscultation bilaterally Resp Narrative: No conversational dyspnea. Effort and Inspection: Negative for tachypneic Cardio Cardio Narrative: Irregular irregular rhythm with controlled ventricular response. No murmur. No gallop. GI normal to inspection, nondistended, normoactive bowel sounds, soft to palpation and non-tender Extremity no calf tenderness General Extremity: Negative for edema Assessment & Plan Assessment/Plan (1) Debility: (2) Ischemic cerebrovascular accident (CVA): (3) Speech disturbance: QUALIFIERS: Speech disturbance type: slurred speech Qualified Code(s): R47.81 - Slurred speech (4) Chronic HFrEF (heart failure with reduced ejection fraction): (5) History of atrial fibrillation: (6) Obstructive sleep apnea: (7) History of PTCA 1: (8) History of coronary artery bypass graft: (9) Chronic anticoagulation: (10) Chronic cough: PLAN: Plan 1. Continue therapy 2. Change the ipratropium to every 6 hours as needed wheezing/cough. I am suspicious that the cough may be related to allergies since they have a pet at home and he is not coughing while on rehab. If the cough recurs with changing the aerosol to PRN will recommend PFT's as an OP and possibly try treating with Atrovent nasal spray to see if the cough responds to treating for allergic/nonallergic rhinitis 3. Plan on DC home early next week. We discussed considering assisted living going forward. Family is concerned about their safety at home without 24/ supervision. Recommended someone supervise when Ted is filling the pill boxes and that an alarm is set on the cell phone to remind him to take his medications. Will also need someone to manage the finances. 4. Recommend he be evaluated for hearing loss.......would like to refer to [facility] for this at [place]. 5. Made Ted and Shannan aware that we would be making a referral to APS at [place] to make sure they are safe at home when alone. Also recommended a medic alert system to summon help if needed. SW supplied information. No driving at [place]. 6. FWW at [place]. HHC at [place]. 7. Increased the vital sign frequency to every 4 hours while awake for the next few days. If the systolic is still above 130 we will adjust medications. Charges/Coding Visit Charges Inpatient E&M: 17547 Subs Hosp L2
--- NOTE | 2024-02-25 12:53 | CASEMGMT ---
Addendum entered by Bonnie Burgess 02/26/24 13:50: SW phoned . left VM requesting preference for skilled HHC. Addendum entered by Bonnie Burgess 02/26/24 09:53: Phoned APS referral to [facility]. Original Note: Social Work IDT met with patient, , and gdtr for Team meeting. Discussed patient's progress in PT/OT/ST/SN. Educated to [facility] insurance with [employer]D 03/01. Insurance relies on IDT to set DC date. Discussed IDTs recommendations for 24/11 supervision d/t cognition and safety. Physically pt is doing well - SBA-CGA. IDT also concerned about 's cognitive abilities. Ideally, pt would have silk screen printer helper at home or go to [place]. Pt/ both denied and feel pt can be at home and can assist, also citing great grandson is home with them as well. Reminded pt/ ggkalpesh does work during the day. SW explained and provides resources for medical alert and WATCHSTANDER. Offered to set DC date for 02/27, so ggson can be home to assist. Pt will need a FWW and skilled HHC at [place]. SW provided list of skilled HHC agencies with quality and resource data via [employer]. to choose selections and notify this worker. to transport at [place]. Gdtr intervened and broached topic further of pt and needing more assistance in the home for safety. confirmed an aide several times a week would be of benefit. also informed pt/ this worker will be making an APS referral at [place] to ensure safety at home and assist with the transition. BEHZAD explained the HHC SW will also provide assistance as well. SW to refer to [facility] for FWW. Plan: DC home with 02/27, HHC PT/OT/ST/HANNA/SW, FWW Bonnie Burgess, FUND RAISER DETACHER
[2024-02-25 12:54] VITALS: BMI 26.5
[2024-02-25 14:00] VITALS: BP 100/59; PULSE 62
[2024-02-25 18:00] VITALS: BP 117/75; PULSE 82; RESP 17; TEMP 36.6; O2SAT 96
[2024-02-25] MEDS: Latanoprost 0.005% 1 Bottle 1 DRP OPHTHALMIC (20:47)
[2024-02-25] MEDS: Atorvastatin Calcium 80 MG Tablet PO (20:48)
[2024-02-25] MEDS: traZODone 50 MG Tablet PO (20:49)
[2024-02-25 20:54] VITALS: BP 122/73; PULSE 68
[2024-02-26 01:03] VITALS: BMI 26.5
[2024-02-26 06:00] VITALS: BP 117/60; PULSE 68; RESP 16; TEMP 36.2; O2SAT 96
[2024-02-26] MEDS: Senna/Docusate Sodium 1 Tablet 2 TABLET PO ×2 (07:52→21:00)
[2024-02-26] MEDS: Empagliflozin 10 MG Tablet PO (07:52)
[2024-02-26] MEDS: APIXABAN 5 MG TABLET PO ×2 (07:52→21:00)
[2024-02-26] MEDS: Potassium Chloride Oral Tablet 20 MEQ PO (07:52)
[2024-02-26] MEDS: Furosemide 20 MG Tablet PO (07:52)
[2024-02-26] MEDS: Aspirin 81 MG TAB.CHEW PO (07:52)
[2024-02-26] MEDS: Carvedilol 3.125 MG TABLET PO ×2 (07:52→21:00)
[2024-02-26] MEDS: SACUBITRIL/VALSARTAN 24/26 MG TABLET 1 EACH PO ×2 (07:53→21:00)
[2024-02-26] MEDS: Menthol/Lanolin/Calamine/Znox 113 GM Tube 1 APPLIC TOPICAL ×2 (07:53→20:59)
[2024-02-26 10:00] VITALS: BP 167/79; PULSE 73
[2024-02-26 13:45] VITALS: BMI 26.5
--- NOTE | 2024-02-26 15:30 | CASEMGMT ---
Social Work No response from . SW spoke with pt on C preference. Pt has no preference and agreeable to [facility]. SW phoned referral to [facility] for PT/OT/ST/SN/HANNA/SW. [facility] requesting necessity for OT as that provider is scheduling two weeks out and requested if PT can screen for OT needs. SW spoke with treating OT and OT confirmed pt can continue with PT and have PT screen for OT needs. SW updated [facility]. They can accept with SOC 03/01. Bonnie Burgess, SENIOR ART DIRECTOR MANUAL CONTROL AUGER PRESS OPERATOR
[2024-02-26] MEDS: Dorzolamide 2% 10ml Bottle 1 DRP OPHTHALMIC (17:13)
[2024-02-26 17:37] VITALS: BP 108/67; PULSE 62; RESP 16; TEMP 36.6; O2SAT 97
[2024-02-26] MEDS: traZODone 50 MG Tablet PO (20:59)
[2024-02-26] MEDS: Atorvastatin Calcium 80 MG Tablet PO (21:00)
[2024-02-26] MEDS: Latanoprost 0.005% 1 Bottle 1 DRP OPHTHALMIC (21:01)
[2024-02-26 22:00] VITALS: BP 126/60; PULSE 71
[2024-02-27 01:41] VITALS: BMI 26.5
[2024-02-27 06:20] VITALS: BP 122/77; PULSE 69; RESP 18; TEMP 36.7; O2SAT 96
[2024-02-27] MEDS: SACUBITRIL/VALSARTAN 24/26 MG TABLET 1 EACH PO ×2 (08:13→20:08)
[2024-02-27] MEDS: Carvedilol 3.125 MG TABLET PO ×2 (08:13→20:07)
[2024-02-27] MEDS: Furosemide 20 MG Tablet PO (08:13)
[2024-02-27] MEDS: Menthol/Lanolin/Calamine/Znox 113 GM Tube 1 APPLIC TOPICAL ×2 (08:13→20:07)
[2024-02-27] MEDS: Empagliflozin 10 MG Tablet PO (08:14)
[2024-02-27] MEDS: APIXABAN 5 MG TABLET PO ×2 (08:14→20:08)
[2024-02-27] MEDS: Dorzolamide 2% 10ml Bottle 1 DRP OPHTHALMIC ×3 (08:14→18:49)
[2024-02-27] MEDS: Aspirin 81 MG TAB.CHEW PO (08:14)
[2024-02-27] MEDS: Potassium Chloride Oral Tablet 20 MEQ PO (08:14)
[2024-02-27] MEDS: Senna/Docusate Sodium 1 Tablet 2 TABLET PO (08:14)
[2024-02-27 10:00] VITALS: BP 128/68; PULSE 66
[2024-02-27 10:22] VITALS: BMI 26.5
[2024-02-27 13:31] VITALS: BP 119/67; PULSE 63
--- NOTE | 2024-02-27 14:24 | DCINST_ITS ---
Discharge Instructions Diet Discharge Diet: Low fat / Low cholesterol and - (low salt.......no added salt to foods and avoid pretzels, potato chips, fast food, sauerkraut, pickled foods. ) Activity Discharge Activity: May Not Drive and Use Walker Weight Bearing Status: Full weight bearing Keep extremity elevated above heart level: Legs Dressing / Incision Call your doctor if you observe: Fever of 101 or Higher, Shortness of breath, Dizziness, Fainting spells, Swelling in the ankles, Chest pain, Increased palpitations (irregular heartbeat), Calf discomfort and - (STROKE symptoms: facial droop, slurred speech, inability to get words out, weakness on 1 side of the body and not the other, numbness on 1 side of the body and not the other, inability to maintain your balance sitting or standing, vertigo. ) Follow Up Care When: Dr. Low's office will call you to schedule an appt to see neurology. We have made appts for you to follow up with Dr. Noyola and Ruben Gonzalez from cardiology and the are listed later in this document. Test Results: Test results from this visit will be discussed in further detail at your follow- up appointment, if applicable. Pending Tests Upon Discharge: none Discharge Plan Admission Admit Date/Time: 02/14/24 13:09 Primary Reason for Your Visit: Post stroke debility Attending Provider: Katelyn Lee Primary Care Provider: Torin Noyola Consulting Providers: Jermaine Grider Chi Instructions Patient Instructions: Heart Failure Flare Up Signs, Heart Failure Dc, Discharge Instructions for Stroke Additional Instructions / Restrictions: 1. No driving. You have had more than 1 stroke and you have some deficits with your thought processes. I think you should not be driving because you are not safe to drive and neither are the other people on the road. 2. It is very important for you to take your medications exactly as prescribed. Please allow your family to either you in setting up your pill boxes. You should set alarms on your cell phone to alert you to take your medications when they are due. 3. Do NOT eat foods with a lot of salt in them.........you have a weak heart and too much salt can cause fluid retention and put you into congestive heart failure. If this happens you will have increasing shortness of breath with exertion, increased shortness of breath with lying down flat in bed, swelling in your legs and your weight will go up. Get a good scale and weigh yourself in the mornings after you use the toilet. Keep a record of your weights. If your weight goes up 5 lbs or more in 1 week this means you are retaining fluid and you will need to cut back on salt and fluid intake. If the weight continues to increase or you are short of breath you should call your electromechanic. 4. Prior to coming to the hospital you were apparently taking a medication called Ambien(also called Zolpidem) to help you sleep at night. The Ambien was not continued at admission to the hospital. You were having trouble sleeping on rehab and we started a drug called Trazodone to help you sleep and it has been working well for you. I am giving you a prescription for Trazodone 50 mg #10 tablets. You will take this at bedtime ONLY if you are having insomnia. If you need to take this every night to help you sleep you will need to get a prescription from Dr. Noyola to refill it. 5. If you or your family have any questions after you leave rehab please do not hesitate to call me. OFFICE: [phone] CELL: [phone] NURSES STATION ON REHAB: [phone] Discharge Orders/Prescriptions Prescriptions: New trazodone 50 mg Tablet 50 mg PO 2100 Qty: 10 0RF Continued ipratropium-albuterol 1 PUFF inhaler 1 puff inhalation 4X/DAY PRN (Reason: COPD) dorzolamide 2 % drops 1 drp ophthalmic (eye) TID aspirin 81 MG tablet,chewable 81 mg PO DAILY 30 Days Qty: 30 2RF acetaminophen 325 mg Tablet 650 mg PO Q6H PRN PRN (Reason: Pain 1-10 Or Fever >100.7) Qty: 0 0RF carvedilol 3.125 mg Tablet 3.125 mg PO BID Qty: 60 0RF potassium chloride 20 mEq tablet extended release 20 meq PO DAILY Qty: 90 3RF Rx Instructions: 1 tab daily Jardiance 10 mg Tablet 10 mg PO DAILY Qty: 30 0RF Rx Instructions: You take this for heart failure and diabetes. Entresto 24-26 mg Tablet 1 tab PO BID Qty: 60 0RF apixaban 5 mg tablet 5 mg PO BID Qty: 60 11RF furosemide 20 mg tablet 20 mg PO DAILY Qty: 90 4RF atorvastatin 80 mg tablet 80 mg PO QHS Qty: 90 3RF Discontinued ipratropium-albuterol 0.5 mg-3 mg(2.5 mg base)/3 mL solution for nebulization 3 ml inhalation 4X/DAY PRN (Reason: shortness of breath or wheezing) Patient Comments: INHALE 1 (ONE) VIAL VIA NEBULIZER UP TO FOUR TIMES DAILY NEEDED FOR FOR WHEEZING OR SHORTNESS OF BREATH melatonin 3 mg Tablet 3 mg PO QHS PRN PRN (Reason: Insomnia) Qty: 0 0RF No Action latanoprost 0.005 % drops 1 drp ophthalmic (eye) QHS Referrals / Follow Up: Jules Low MD [Non-Staff -Ordering Privileges] - (office to call back to make appt ) Torin Noyola MD [Primary Care Provider] - 03/01/24 11:40 am Ruben Gonzalez NP, HOOK AND EYE SEWING MACHINE OPERATOR-C [Med Staff - Adv Practice Prof] - 03/10/24 10:00 am Disposition Disposition (needs filled in before D/C Order can be placed): Home Health Service
--- NOTE | 2024-02-27 14:53 | DS.PCM_ITS ---
Providers Date of Admission: 02/14/24 Date of Discharge: 02/28/24 Primary Care Physician: Dr. Torin Noyola MD Reason For Visit: CVA Diagnosis Discharge Diagnosis (1) Debility: Status: Acute Code(s): R53.81 - Other malaise (2) Ischemic cerebrovascular accident (CVA): Status: Acute Code(s): I63.9 - Cerebral infarction, unspecified (3) Speech disturbance: Status: Acute Code(s): R47.9 - Unspecified speech disturbances Qualifiers: Speech disturbance type: slurred speech Qualified Code(s): R47.81 - Slurred speech (4) Chronic HFrEF (heart failure with reduced ejection fraction): Status: Chronic Code(s): I50.22 - Chronic systolic (congestive) heart failure (5) History of atrial fibrillation: Status: Acute Code(s): Z86.79 - Personal history of other diseases of the circulatory system (6) Obstructive sleep apnea: Status: Chronic Code(s): G47.33 - Obstructive sleep apnea (adult) (pediatric) (7) History of PTCA 1: Status: Chronic Code(s): Z98.61 - Coronary angioplasty status (8) History of coronary artery bypass graft: Status: Chronic Code(s): Z95.1 - Presence of aortocoronary bypass graft (9) Chronic anticoagulation: Status: Chronic Code(s): Z79.01 - care home (current) use of anticoagulants (10) Chronic cough: Status: Chronic Code(s): R05.3 - Chronic cough Plan Discharge home with home health care from [facility]. Front wheeled walker at discharge Medications at Discharge Home Medications ipratropium 20 mcg-albuterol 100 mcg/actuation mist for inhalation 1 puff inhalation 4X/DAY PRN COPD 09/20/19 dorzolamide 2 % eye drops 1 drp ophthalmic (eye) TID GLAUCOMA 03/25/23 latanoprost 0.005 % eye drops 1 drp ophthalmic (eye) QHS GLAUCOOMA 03/25/23 aspirin 81 mg chewable tablet 81 mg PO DAILY HEART HEALTH 30 days #30 tabs 03/26/23 apixaban 5 mg tablet 5 mg PO BID BLOOD THINNER #60 tabs 05/18/23 furosemide 20 mg tablet 20 mg PO DAILY EDEMA #90 tabs 07/07/23 atorvastatin 80 mg tablet 80 mg PO QHS Cholestrol #90 TABLETS 02/10/24 acetaminophen 325 mg tablet 650 mg (2 x 325 mg) PO Q6H PRN PRN Pain 1-10 Or Fever >100.7 #0 tabs 02/14/24 carvedilol 3.125 mg tablet 3.125 mg PO BID BP #60 tabs 02/27/24 empagliflozin 10 mg tablet (Jardiance) 10 mg PO DAILY DM #30 tabs 02/27/24 potassium chloride 20 mEq tablet,extended release 20 meq PO DAILY Potassium #90 tabs 02/27/24 sacubitril 24 mg-valsartan 26 mg tablet (Entresto) 1 tab PO BID Heart #60 tabs 02/27/24 trazodone 50 mg tablet 50 mg PO 2100 #10 tabs 02/27/24 Hospital Course Operations None Procedures Transthoracic echo (4d left ventricle. Mild left ventricular concentric hypertrophy. Severe generalized LV hypokinesis. Estimated LVEF 25%. The left atrium is severely enlarged. The right atrium is mildly enlarged. Moderate to severe mitral annular calcification. Mild mitral valve regurgitation. Moderately thi) Summary of Care Provided Minutes Spent on Discharge: 40 Hospital Course: Eleazar Dunne is an 88-year-old male with a past medical history of COPD, coronary artery disease with history of TN, history of CABG, history of PCI, rheumatoid arthritis, obstructive sleep apnea on BiPAP, pacemaker/AICD insertion, chronic congestive heart failure with reduced ejection fraction, atrial fibrillation, glaucoma, chronic anticoagulation with Eliquis and history of strokes. He presented to the emergency department at [facility] on 02/11/2024 with complaints of difficulty walking, dizziness and diaphoresis. CT head was negative and the CTA of the head and neck showed less than 50% bilateral internal carotid stenosis. He was admitted to the hospitalist service. MRI could not be done secondary to the pacer/AICD. Echocardiogram showed an EF of 25% with severe left atrial enlargement and mild concentric left ventricular hypertrophy. Teleneurology was consulted and recommended aspirin, continued Eliquis, high intensity statin and optimization of cardiovascular risk factor to include LDL less than 70, hemoglobin A1c less than 7.5 and blood pressure less than 130/80. While in the hospital he had acute on chronic congestive heart failure. Lisinopril was discontinued and he was later started on Entresto and Jardiance. Spironolactone and Lasix were continued. He was admitted to the acute inpatient rehab unit at [facility] on 02/14/2024 for 3 hours of therapy daily to restore function/independence at or near his level prior to admission. While on rehab he was noted to have significant cognitive dysfunction, dysarthria and problems with unilateral neglect and gait instability. He had problems with insomnia while on rehab and was started on trazodone 50 mg at at bedtime. He did not have urine retention with the initiation of trazodone. Prior to discharge from rehab he was ambulating on various surfaces with a front wheel walker up to 510 feet at contact-guard assist. He ambulated up to 195 feet with a small-based quad cane at contact-guard assist/min assist. On 02/24/2024 he was able to ascend/descend 8 steps with 2 handrails at contact- guard assist/min assist. He sometimes catches his right foot going downstairs and does not have full right foot contact going up stairs. His goal was to be able to do 12 steps with 1 handrail at standby assist and this goal was not met. He is supervision/set up for eating and contact-guard assist for grooming at discharge. He needs minimal assistance with bathing and he is supervision/set up for upper body dressing and contact-guard assist for lower body dressing. He is contact-guard assist for toilet transfer toileting and tub/shower transfer.. Ted and his Shannan live alone and we had some reservation about discharge to home but, family felt he would be safe. He was instructed not to drive and his family is aware of this because they were in the room when I told Ted this. The SW was going to notify APS because we were unsure if Shannan and Ted would be safe at home. Ted has poor safety awareness and is unaware of all his deficits. He has significant cognitive dysfunction. He scored only 30 one of the possible 50 on his brief cognitive assessment tool. Appointments were made for Ted to follow-up with Dr. Noyola, his PCP, and Ruben Alaniz from [facility]. Dr. Low's office will call him with an appointment to follow-up with neurology. Physical Exam Const alert and no apparent distress General Appearance: cooperative HEENT moist oral mucous membranes Resp normal respiratory effort and clear to auscultation bilaterally Resp Narrative: No conversational dyspnea. Effort and Inspection: Negative for tachypneic Cardio Cardio Narrative: Irregular irregular rhythm with controlled ventricular response. No murmur. No gallop. GI normal to inspection, nondistended, normoactive bowel sounds, soft to palpation and non-tender Extremity no calf tenderness General Extremity: Negative for edema Neuro oriented x3 and CN's II-XII intact bilaterally Neuro Narrative: Able to follow simple commands. No visual loss. He is ataxic with the right upper extremity. Good strength in the upper extremities and lower extremities. No sensory deficits. No aphasia. Mild dysarthria but much improved since admission.. No extinction. Psych cooperative, affect normal, denies homicidal ideation and denies suicidal ideation Psych Narrative: Still with significant cognitive dysfunction. Poor safety awareness and he is not aware of his deficits. Attitude: calm Activity / Motor Behavior: appropriate eye contact Weight / BMI Weight Weight: 189 lb 6.033 oz Body Mass Index (BMI) 26.5 ABG / Lab / Microbiology Data 02/23/24 05:34 02/23/24 05:34 Indicators for Scoring Admitted with or Primary Diagnosis of CVA/Stroke: Yes Hx of CVA/Stroke: Yes Modified Edmunds Score MRS Score at time of Evaluation: 4-Moderate/severe disability NIHSS NIHSS 1a. Level of Consciousness: Alert; keenly responsive 1b. LOC Questions: Answers BOTH questions correctly. 1c. LOC Commands: Performs both tasks correctly. 2. Best Gaze: Normal 3. Visual: No visual loss 4. Facial Palsy: Normal symmetrical movements 5a. Left Arm: No drift; arm holds 90 (or 45) degrees for full 10 seconds 5b. Right Arm: No drift; arm holds 90 (or 45) degrees for full 10 seconds 6a. Left Leg: No drift; leg holds 30-degree position for full 5 seconds 6b. Right Leg: No drift; leg holds 30-degree position for full 5 seconds 7. Limb Ataxia: Present in 1 limb 8. Sensory: Normal; no sensory loss 9. Best Language: No aphasia; normal 10. Dysarthria: [id number] dysarthria; 11. Extinction and Inattention: No abnormality Total: 2 Stroke Questions Stroke Team Activated: No D/C Instructions Discharge Diet: Low fat / Low cholesterol and - (low salt.......no added salt to foods and avoid pretzels, potato chips, fast food, sauerkraut, pickled foods. ) Weight Bearing Status: Full weight bearing Keep extremity elevated above heart level: Legs Call your doctor if you observe: Fever of 101 or Higher, Shortness of breath, Dizziness, Fainting spells, Swelling in the ankles, Chest pain, Increased palpitations (irregular heartbeat), Calf discomfort and - (STROKE symptoms: facial droop, slurred speech, inability to get words out, weakness on 1 side of the body and not the other, numbness on 1 side of the body and not the other, inability to maintain your balance sitting or standing, vertigo. ) Pending Tests Upon Discharge: none When: Dr. Low's office will call you to schedule an appt to see neurology. We have made appts for you to follow up with Dr. Noyola and Ruben Gonzalez from cardiology and the are listed later in this document. Meaningful Use Info Meaningful Use Meaningful Use Diagnoses (Choose all that apply): Ischemic CVA CVA Therapy Assessed for PT,OT and/or ST?: Yes Ischemic Stroke Antithrombotic order at d/c?: Yes Dx of Atrial fib/flutter?: Yes Anticoagulant at discharge?: Yes Statin Dosing Therapy Reference: STATIN DOSE THERAPY REFERENCE: * Patients > 75 years receive moderate or high dose statin therapy. * Patients 75 years or YOUNGER should receive HIGH intensity statin dose unless contraindicated. You will be required to document reason for non-treatment if statin daily dose does not meet guidelines. HIGH DOSE STATIN THERAPY DAILY Atorvastatin > than or = to 40 mg Rosuvastatin > than or = to 20 mg Amlodipine + Atorvastatin > than or = to 2.5/40 mg Ezetimibe + Simvastatin 10/80 mg Simvastatin 80mg Statins at discharge?: Yes Primary Dx Acute Ischemic CVA?: Yes IV thrombolytic ordered during stay?: No Reason IV thrombolytic not ordered: Procedure not Indicated Discharge Plan Admission Admit Date/Time: 02/14/24 13:09 Primary Reason for Your Visit: Post stroke debility Attending Provider: Katelyn Lee Primary Care Provider: Torin Noyola Consulting Providers: CheoJermaine Chi Instructions Patient Instructions: Heart Failure Flare Up Signs, Heart Failure Dc, Discharge Instructions for Stroke Additional Instructions / Restrictions: 1. No driving. You have had more than 1 stroke and you have some deficits with your thought processes. I think you should not be driving because you are not safe to drive and neither are the other people on the road. 2. It is very important for you to take your medications exactly as prescribed. Please allow your family to either you in setting up your pill boxes. You should set alarms on your cell phone to alert you to take your medications when they are due. 3. Do NOT eat foods with a lot of salt in them.........you have a weak heart and too much salt can cause fluid retention and put you into congestive heart failure. If this happens you will have increasing shortness of breath with exertion, increased shortness of breath with lying down flat in bed, swelling in your legs and your weight will go up. Get a good scale and weigh yourself in the mornings after you use the toilet. Keep a record of your weights. If your weight goes up 5 lbs or more in 1 week this means you are retaining fluid and you will need to cut back on salt and fluid intake. If the weight continues to increase or you are short of breath you should call your flavor extractor. 4. Prior to coming to the hospital you were apparently taking a medication called Ambien(also called Zolpidem) to help you sleep at night. The Ambien was not continued at admission to the hospital. You were having trouble sleeping on rehab and we started a drug called Trazodone to help you sleep and it has been working well for you. I am giving you a prescription for Trazodone 50 mg #10 tablets. You will take this at bedtime ONLY if you are having insomnia. If you need to take this every night to help you sleep you will need to get a prescription from Dr. Noyola to refill it. 5. If you or your family have any questions after you leave rehab please do not hesitate to call me. OFFICE: [phone] CELL: [phone] NURSES STATION ON REHAB: [phone] Discharge Orders/Prescriptions Prescriptions: New trazodone 50 mg Tablet 50 mg PO 2100 Qty: 10 0RF Continued ipratropium-albuterol 1 PUFF inhaler 1 puff inhalation 4X/DAY PRN (Reason: COPD) dorzolamide 2 % drops 1 drp ophthalmic (eye) TID aspirin 81 MG tablet,chewable 81 mg PO DAILY 30 Days Qty: 30 2RF acetaminophen 325 mg Tablet 650 mg PO Q6H PRN PRN (Reason: Pain 1-10 Or Fever >100.7) Qty: 0 0RF carvedilol 3.125 mg Tablet 3.125 mg PO BID Qty: 60 0RF potassium chloride 20 mEq tablet extended release 20 meq PO DAILY Qty: 90 3RF Rx Instructions: 1 tab daily Jardiance 10 mg Tablet 10 mg PO DAILY Qty: 30 0RF Rx Instructions: You take this for heart failure and diabetes. Entresto 24-26 mg Tablet 1 tab PO BID Qty: 60 0RF apixaban 5 mg tablet 5 mg PO BID Qty: 60 11RF furosemide 20 mg tablet 20 mg PO DAILY Qty: 90 4RF atorvastatin 80 mg tablet 80 mg PO QHS Qty: 90 3RF Discontinued ipratropium-albuterol 0.5 mg-3 mg(2.5 mg base)/3 mL solution for nebulization 3 ml inhalation 4X/DAY PRN (Reason: shortness of breath or wheezing) Patient Comments: INHALE 1 (ONE) VIAL VIA NEBULIZER UP TO FOUR TIMES DAILY NEEDED FOR FOR WHEEZING OR SHORTNESS OF BREATH melatonin 3 mg Tablet 3 mg PO QHS PRN PRN (Reason: Insomnia) Qty: 0 0RF No Action latanoprost 0.005 % drops 1 drp ophthalmic (eye) QHS Referrals / Follow Up: Jules Low MD [Non-Staff -Ordering Privileges] - (office to call back to make appt ) Torin Noyola MD [Primary Care Provider] - 03/01/24 11:40 am Ruben Gonzalez NP, SENIOR [employer] DEVELOPER-C [Med Staff - Adv Practice Prof] - 03/10/24 10:00 am Disposition Disposition (needs filled in before D/C Order can be placed): Home Health Service Charges/Coding Visit Charges Inpatient E&M: 61910 Disch Hosp >30min
[2024-02-27 18:00] VITALS: BP 116/62; PULSE 80; RESP 17; TEMP 36.6; O2SAT 95
[2024-02-27] MEDS: traZODone 50 MG Tablet PO (20:07)
[2024-02-27] MEDS: Latanoprost 0.005% 1 Bottle 1 DRP OPHTHALMIC (20:08)
[2024-02-27] MEDS: Atorvastatin Calcium 80 MG Tablet PO (20:08)
[2024-02-27 23:19] VITALS: BP 116/83; PULSE 67
[2024-02-28 02:09] VITALS: BMI 26.5
[2024-02-28 05:28] VITALS: BP 101/62; PULSE 64; RESP 16; TEMP 36.4; O2SAT 97
[2024-02-28] MEDS: SACUBITRIL/VALSARTAN 24/26 MG TABLET 1 EACH PO (09:05)
[2024-02-28] MEDS: Potassium Chloride Oral Tablet 20 MEQ PO (09:05)
[2024-02-28] MEDS: Aspirin 81 MG TAB.CHEW PO (09:05)
[2024-02-28] MEDS: APIXABAN 5 MG TABLET PO (09:05)
[2024-02-28] MEDS: Dorzolamide 2% 10ml Bottle 1 DRP OPHTHALMIC (09:05)
[2024-02-28] MEDS: Furosemide 20 MG Tablet PO (09:05)
[2024-02-28] MEDS: Empagliflozin 10 MG Tablet PO (09:05)
[2024-02-28] MEDS: Carvedilol 3.125 MG TABLET PO (09:05)
[2024-02-28 09:19] VITALS: BMI 26.5
--- NOTE | 2024-02-28 11:15 | NURSING ---
Discharge to home with present. Verbalized understanding to DC instruct.
== END 2024-02-28 11:30 | disposition home health service (06) | DRG 57 ==
PROVIDERS: Admitting Provider Family Medicine Geriatric Medicine; PCP Internal Medicine; Visit Provider Internal Medicine
DX: I69.393 Ataxia following cerebral infarction (principal); I13.0 Hypertensive heart and chronic kidney disease with heart failure and stage 1 through stage 4 chronic kidney disease, or unspecified chronic kidney disease; I50.22 Chronic systolic (congestive) heart failure; I48.20 Chronic atrial fibrillation, unspecified; J44.9 Chronic obstructive pulmonary disease, unspecified; N18.31 Chronic kidney disease, stage 3a; M06.9 Rheumatoid arthritis, unspecified; I69.328 Other speech and language deficits following cerebral infarction; I25.10 Atherosclerotic heart disease of native coronary artery without angina pectoris; E78.2 Mixed hyperlipidemia; E87.6 Hypokalemia; G47.33 Obstructive sleep apnea (adult) (pediatric); I25.5 Ischemic cardiomyopathy; Z79.01 Long term (current) use of anticoagulants; Z95.1 Presence of aortocoronary bypass graft; Z79.82 Long term (current) use of aspirin; G47.00 Insomnia, unspecified; H40.9 Unspecified glaucoma; Z95.5 Presence of coronary angioplasty implant and graft; Z87.891 Personal history of nicotine dependence; R47.81 Slurred speech; Z95.810 Presence of automatic (implantable) cardiac defibrillator; Z66 Do not resuscitate; Z79.899 Other long term (current) drug therapy
CPT/HCPCS: 36415; 70450; 70496; 70498; 71045; 80048; 80061; 81001; 82962; 83735; 84443; 84484; 85025; 85027; 85610; 85730; 92523; 92610; 93005; 93308; 94640; 94762; 97110; 97112; 97116; 97129; 97130; 97162; 97166; 97530; 97535; 97802; 97803; 99221; 99285; Q9957; Q9967; A4216; C8924; G0378

== ENCOUNTER → 2024-03-10 | Outpatient (CLI) | payer MEDICARE, SELFPAY ==
[2024-03-10 12:26] LABS: ALB/GLOB Ratio 1.1 RATIO (0.9-2.4); AST(SGOT) 13 U/L (15-37); Alanine Aminotransfer ALT/SGPT 18 U/L (16-61); Albumin, Serum 3.8 g/dL (3.2-5.0); Alkaline Phosphatase 86 U/L (45-117); Anion Gap 5 (5-15); BUN 20 mg/dL (7-18); BUN/Creat Ratio 15.9 RATIO (10-20); Calcium,Total 9.2 mg/dL (8.5-10.1); Chloride 109 mmol/L (98-107); Creatinine, Serum 1.26 mg/dL (0.70-1.30); EST Glomerular Filtration Rate 58 mL/min (>60); Est Glom Filt Rate - Afr Amer 70 mL/min (>60); Globulin 3.5 g/dL (2.2-4.2); Glucose 104 mg/dL (74-106); Potassium 4.5 mmol/L (3.5-5.1); Protein, Total 7.3 g/dL (6.4-8.2); Sodium Level 141 mmol/L (136-145)
== END | disposition home or self-care (01) ==
LOC: LAB 10:44
PROVIDERS: PCP Internal Medicine; Referring Provider Nurse Practitioner Family; Visit Provider Nurse Practitioner Family
DX: I11.0 Hypertensive heart disease with heart failure (principal); I50.22 Chronic systolic (congestive) heart failure; I25.10 Atherosclerotic heart disease of native coronary artery without angina pectoris
CPT/HCPCS: 36415; 80053

== ENCOUNTER 2024-04-26 09:00 | Outpatient (RCR) | payer MEDICARE, SELFPAY ==
--- NOTE | 2024-04-18 07:38 | HP.PTEVAL ---
Patient's Visit Information Visit Information Visit Information: ALEXIA MERIDA is a 88 year old M referred to Physical Therapy by Dr. Torin Noyola MD with a diagnosis of CVA. Date of Evaluation: 04/13/24 Physical Therapist: Anthony Barker DPT Visit Plan Frequency: 2x /Week Duration: 6 Weeks Plan: 1) BLE strengthening, glute med, glute max, calf 2) balance training progressing to SL balance 3) corrective reaction balance training. Subjective Subjective: Pt. is here today for his initial evaluation with diagnosis of CVA. Pt. reports not feeling well and eventually going to hospital where he found out he had a CVA. Pt. reports no marked weakness in either LE or UE. Pt. was in Rehab unit for PT and OT which went well. He is now back home. pt. reports he was golfing and going out with friends prior to this inccent and would like to get back to this. Pt. is currently not driving. Pt. is sleeping well without issues. No major numbness/tingling noted. Pt. reports no falls since returning home. Pt. has been doing some of his exercises as well. He has a few steps to enter his home. Pt. reports no major issues with home activities. Pt. reports being a little off balance, but overall is doing well. He is hopeful to increase his strength and mobility in order to get back to all recreational and household activities without limitations. Objective Objective: POSTURE: Pt. has slight FH posture, and slight wide RUBY. PALPATION: No pain with palpation throughout BLEs. NEURO: Pt. has normal DTR of BLEs. Pt. is able to rise on heels and toes without issues. ROM: Pt. has some tightness in B HS and B calves. LUMBAR SPINE: min loss throughout. MMT: PT. has 5/5 strength except; ankle DF 4/5 bilat, ankle PF 5-/5 bilat; B hip ext 4+/5. Core strength: poor. GAIT: Pt. amnbulates without AD. Pt. has slight decrease in B ankle swing and slight increase in R lean. STAIRS: step to pattern noted with loading LLE only, uses B HR. TU.8sec without AD Balance/Special Test Scores CATSIB Score (Max score 120 seconds): 68 Lower Extremity Functional Score: 35 TUG Test Time Seconds: 18.8 30 Second Chair Rise Test Seconds: 8 Goals Goal 1:: LTG: Pt. to be I with HEP. Goal Time Frame: 4-6 Weeks Goal 2:: LTG: Pt. to ambulate with good stability without use of AD with normal gait pattern. Goal Time Frame: 4-6 Weeks Goal 3:: LTG: Pt. to negotiate 1 flight of stairs with 1 HR with reciprocal pattern. Goal Time Frame: 4-6 Weeks Goal 4:: LTG: Pt. to complete TUG under 10 seconds without AD. Goal 5:: LTG: Pt. to have increased BLE strength to 5/5 throughout. Goal Time Frame: 4-6 Weeks Rehabilitation Potential Physical Therapy Diagnosis: Pt. has signs and symptoms consistent with CVA. Pt. has some slight R sided weakness compared to L side. pt. has some marked weakness and decreased stability, functional mobility. He would benefit from PT to address the above limitations progressing back to all previous levels of mobility. Rehabilitation Potential: Excellent Anticipated Interventions Patient/Client Instruction: Educate patient on: Condition, Plan of Care, Risk Factors and Benefits of Fitness Program For the Purpose of:: To improve decision making, To facilitate caregiver knowledge, To improve self management, To prevent re-injury and To improve ability to perform tasks related to life management Therapeutic Exercise to Include: Strength training, Power training, Balance training, Flexibilty training and Gait and locomotor training For the Purpose of:: To improve nutrient delivery to tissue, To increase oxygenation perfusion, To improve muscle performance and motor function, To improve ability to perform ADL's, To improve health of tissue, To decrease soft tissue restriction, To increase flexibility/ROM and To improve balance Text: Thank you for the opportunity to evaluate your patient. For Medicare and Medicare HMO plans, please review the plan of care and approve it. It will need to be FAXED BACK to us at [phone] for Medicare purposes. For Medicare only, by signing this I certify the plan of care. Please let me know if there are questions or concerns regarding this plan of care. Physician Signature: Date:
== END 2024-04-26 19:00 | disposition home or self-care (01) ==
LOC: PT 09:00
PROVIDERS: PCP Internal Medicine; Referring Provider Internal Medicine; Visit Provider Internal Medicine
DX: R26.89 Other abnormalities of gait and mobility (principal); Z86.73 Personal history of transient ischemic attack (TIA), and cerebral infarction without residual deficits
CPT/HCPCS: 97110; 97161

== ENCOUNTER 2024-04-27 03:27 | Emergency (ER) | payer MEDICARE, SELFPAY ==
[2024-04-27] VITALS (16 sets, daily range): BP systolic 122–153; BP diastolic 66–108; PULSE 67–92; RESP 18–28; TEMP -5.5–36.6; O2SAT 94–98; BMI 25.2; BMI 27.3
--- NOTE | 2024-04-27 03:29 | EKG12_ITS ---
Test Reason : DYSRHYTHMIA Blood Pressure : */* mmHG Vent. Rate : 76 BPM Atrial Rate : * BPM P-R Int : * ms QRS Dur : 158 ms QT Int : 460 ms P-R-T Axes : * -71 77 degrees QTcB Int : 517 ms Atrial fibrillation Left axis deviation Right bundle branch block Anterior infarct , age undetermined Abnormal ECG Confirmed by FRANC LUCAS, DAVY ([id number]), graphics editor MAJOR FERNANDEZ ([id number]) on 04/28/2024 2:18:52 PM Referred By: Confirmed By: DAVY BRUNER MD
--- NOTE | 2024-04-27 03:29 | CT_ITS ---
We are attempting to reach an attending provider to discuss findings. An addendum with communication details will be sent when the communication is complete. INDICATION: Neuro deficit, acute, stroke suspected COMPARISON: 02/12/[address] Findings: Serial CT axial images through the brain without contrast. Motion artifact appears to be compensated for by additional series. BRAIN PARENCHYMA: Large right temporoparietal area of encephalomalacia from prior insult. Diffuse likely chronic periventricular white matter ischemic changes. Significant diffuse volume loss, however, the ventricles appear to be dilated out of proportion to remaining CSF spaces, without definite obstructing lesion identified. No evidence of intraparenchymal hemorrhage or extra-axial fluid collection. VASCULAR STRUCTURES: Atherosclerotic vascular calcifications. SCALP/REMAINING SOFT TISSUES: Unremarkable. BONES: Pansinus mucosal thickening with scattered opacification and surrounding chronic mucoperiosteal thickening. CT/STROKE Brain/Head without Cont IMPRESSION: Ventricles are dilated out of portion to remaining CSF spaces, without definite obstructing lesion identified. This is unchanged from comparison examination. Although this may represent central volume loss, cannot exclude stable hydrocephalus. In addition, chronic normal pressure hydrocephalus can have a similar appearance, in the appropriate clinical setting. Pansinus disease. Otherwise, only age-related changes as above, to include old large right temporoparietal stroke, without evidence of acute intracranial hemorrhage in this noncontrast head CT. Electronically Signed: Festus Christianson MD at 3:55 EST ,
--- NOTE | 2024-04-27 03:30 | CT_ITS ---
EXAM: CT ANGIOGRAPHY NECK WITH INTRAVENOUS CONTRAST CLINICAL INDICATION: Neuro deficit, acute, stroke suspected TECHNIQUE: Routine carotid CT angiography protocol was performed with intravenous contrast. NASCET criteria using the distal ICAs for comparison were used for evaluation of stenoses. CTDIvol = ( 41.21 ) mGy, DLP = ( 860.56 ) mGycm This CT exam was performed using one or more of the following dose reduction techniques: automated exposure control, adjustment of the mA and/or kV according to patient size, and/or use of iterative reconstruction technique. MIP reconstructed images were created and reviewed. CONTRAST: IV 100mL [id number] COMPARISON: No relevant prior studies available. FINDINGS: VASCULATURE: RIGHT COMMON CAROTID ARTERY: Unremarkable. No occlusion or significant stenosis. No dissection. RIGHT INTERNAL CAROTID ARTERY: Unremarkable. Extracranial segment is patent with no occlusion or significant stenosis. No dissection. RIGHT EXTERNAL CAROTID ARTERY: Unremarkable. No occlusion. RIGHT VERTEBRAL ARTERY: Unremarkable. No occlusion or significant stenosis. No dissection. LEFT COMMON CAROTID ARTERY: Unremarkable. No occlusion or significant stenosis. No dissection. LEFT INTERNAL CAROTID ARTERY: Unremarkable. Extracranial segment is patent with no occlusion or significant stenosis. No dissection. LEFT EXTERNAL CAROTID ARTERY: Unremarkable. No occlusion. LEFT VERTEBRAL ARTERY: Unremarkable. No occlusion or significant stenosis. No dissection. OTHER VASCULATURE: No other thrombosis. BRACHIOCEPHALIC AND SUBCLAVIAN ARTERIES: Unremarkable as visualized. No occlusion or significant stenosis. 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 BONES/JOINTS: Unremarkable. No acute fracture. SOFT TISSUES: Unremarkable. SINUSES: Opacification of the majority paranasal sinuses with sparing of the right sphenoid sinus. MASTOID AIR CELLS: Mastoid air cells and middle ears are clear. LUNG APICES: Clear. CAROTID STENOSIS REFERENCE USING NASCET CRITERIA: % ICA stenosis = (1 - narrowest ICA diameter/diameter of distal cervical ICA) x 100. Mild - <50% stenosis. Moderate - 50-69% stenosis. Severe - 70-94% stenosis. Near occlusion - 95-99% stenosis. Occluded - 100% stenosis. CT/STROKE CTA Head AND Neck W/Con IMPRESSION: 1. 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 2. Chronic paranasal sinus disease. 3. No significant stenosis, thrombosis, aneurysm or dissection. Dr. Miki Woods was notified of the findings at 1:06 AM [place] time, 04/27/2024. N.B. : The above Results were Read Back by Miki Cardona MD to Miki Woods DO, and understanding confirmed on 04/27/2024 04:06:05 (ET). Electronically Signed: Miki Cardona MD at 4:08 EST ,
[2024-04-27 03:40] LABS: Absolute Lymphocyte Count 1.73 X10^3/uL (0.83-4.51); Absolute Neutrophil Count 3.6 X10^3/uL (2.0-7.7); Basophil# 0.09 X10^3/uL; Basophil% 1.4 % (0-1); Eosinophil# 0.55 X10^3/uL; Eosinophils% 8.4 % (0-5); Hematocrit 42.1 % (40-54); Hemoglobin 13.7 g/dL (13.0-16.5); Lymphocyte # 1.73 X10^3/ul (0.83-4.51); Lymphocyte % 26.3 % (19-41); Mean Corp Hgb Conc 32.5 g/dL (32-36); Mean Corpuscular Hgb 31.5 pg (27.0-32.0); Mean Corpuscular Volume 96.8 fL (80-94); Mean Platelet Vol. 10.5 fl (6.2-12.0); Monocyte% 9.1 % (0-10); NRBC Flagged by Analyzer 0 % (0-5); Neutrophil # 3.59 X10^3/uL (2.7-7.7); Neutrophil % 54.5 % (47-70); Platelet Count 239 K/mm3 (150-450); RBC Distribution Width CV 14.1 % (11.6-14.6); RBC Distribution Width SD 50.4 fl (35.1-43.9); Red Blood Count 4.35 M/mm3 (4.6-6.2); White Blood Count 6.6 K/mm3 (4.4-11.0)
[2024-04-27 03:48] LABS: International Normalized Ratio 1.1; Partial Thromboplast Time 33.6 Seconds (24.1-36.2); Prothrombin Time (Protime)PT. 13.7 SECONDS (11.7-14.9)
[2024-04-27 03:53] LABS: Anion Gap 9 (5-15); BUN 17 mg/dL (7-18); BUN/Creat Ratio 12.5 RATIO (10-20); Chloride 109 mmol/L (98-107); Creatinine, Serum 1.36 mg/dL (0.70-1.30); EST Glomerular Filtration Rate 53 mL/min (>60); Est Glom Filt Rate - Afr Amer 64 mL/min (>60); Estimated Creatinine Clearance 40.76 ml/min; Glucose 118 mg/dL (74-106); Potassium 3.8 mmol/L (3.5-5.1); Sodium Level 141 mmol/L (136-145)
--- NOTE | 2024-04-27 04:10 | RAD_ITS ---
INDICATION: Neuro deficit, acute, stroke suspected EXAMINATION/TECHNIQUE: X-RAY - XR Chest 1 View COMPARISON: 02/11/2024 and 11/22/2023 chest radiograph. 11/23/[address] Findings: Single frontal view of the chest. LUNG PARENCHYMA: Stable left lung base dense consolidation. PLEURA: No definite pleural effusion. No pneumothorax. HEART/GREAT VESSELS: Cardiomediastinal silhouette is enlarged. Left chest multilead pacemaker device in place. BONES: Median sternotomy wires, superior most wire is again noted to be broken. RAD/Chest 1 View IMPRESSION: Stable chest with no acute disease. Electronically Signed: Festus Christianson MD at 6:15 EST ,
--- NOTE | 2024-04-27 04:37 | EDS_ITS ---
HPI History of Present Illness Chief Complaint: Stroke Alert Informant: family and EMS Narrative Narrative: Patient is an 88-year-old male with past medical history of hypertension chronic atrial fibrillation on Eliquis as well as previous ischemic stroke in February of this year. According to chart review and family the patient had a posterior circulation stroke in February and had essentially complete resolution of symptoms. He is able to walk and talk without difficulty at baseline and perform his activities of daily living. According to family and EMS he went to bed at 11 PM and at that time was at his baseline. EMS states they were called as the patient fell out of bed and when family checked on him he would not respond or move. EMS states when they arrived the patient had stable vitals and was protecting his airway but would not move or respond or follow commands. EMS states they checked the patient's blood sugar and it was normal at 137. With the patient's presentation there is concern for an acute stroke so stroke alert was activated upon their report [facility] Medical History Glaucoma Essential (primary) hypertension Chronic HFrEF (heart failure with reduced ejection fraction) Obstructive sleep apnea Hyperlipidemia History of PTCA 1 COPD (chronic obstructive pulmonary disease) Chronic anticoagulation Chronic cough COPD (chronic obstructive pulmonary disease) Myocardial infarct Depression Rheumatoid arthritis BiPAP (biphasic positive airway pressure) dependence Sleep apnea Pacemaker Congestive heart failure (CHF) Atherosclerotic heart disease of [place] coronary artery without angina pectoris Atrial fibrillation CVA (cerebral vascular accident) Home Medications ?Medication ?Instructions ?Recorded ?Last Taken ?Type ipratropium 20 mcg-albuterol 100 1 puff inhalation 4X/DAY PRN COPD 09/20/19 Unknown History mcg/actuation mist for inhalation dorzolamide 2 % eye drops 1 drp ophthalmic (eye) TID GLAUCOMA 03/25/23 02/14/24 History latanoprost 0.005 % eye drops 1 drp ophthalmic (eye) QHS 03/25/23 02/13/24 History GLAUCOOMA aspirin 81 mg chewable tablet 81 mg PO DAILY HEART HEALTH 30 03/26/23 Unknown Rx days #30 tabs apixaban 5 mg tablet 5 mg PO BID BLOOD THINNER #60 tabs 05/18/23 02/14/24 Rx furosemide 20 mg tablet 20 mg PO DAILY EDEMA #90 tabs 07/07/23 02/13/24 Rx acetaminophen 325 mg tablet 650 mg (2 x 325 mg) PO Q6H PRN PRN 02/14/24 Unknown Rx Pain 1-10 Or Fever >100.7 #0 tabs carvedilol 3.125 mg tablet 3.125 mg PO BID BP #60 tabs 02/27/24 Unknown Rx empagliflozin 10 mg tablet 10 mg PO DAILY DM #30 tabs 02/27/24 Unknown Rx (Jardiance) sacubitril 24 mg-valsartan 26 mg 1 tab PO BID Heart #60 tabs 02/27/24 Unknown Rx tablet (Entresto) budesonide 0.5 mg/2 mL suspension mg inhalation QDAY 03/10/24 Unknown History for nebulization buspirone 5 mg tablet 5 mg PO BID PRN anxiety 03/10/24 Unknown History trazodone 50 mg tablet 50 mg PO 2100 PRN insomnia 03/10/24 Unknown History atorvastatin 40 mg tablet 40 mg PO QHS #90 tabs 04/14/24 Unknown Rx potassium chloride 20 mEq 20 meq PO DAILY Potassium #90 tabs 04/21/24 Unknown Rx tablet,extended release Allergy/AdvReac Type Severity Reaction Status Date / Time Penicillins (PCN) Allergy Rash Verified 04/27/24 03:46 Sulfa (Sulfonamide Allergy Rash Verified 04/27/24 03:46 Antibiotics) Family History Mother , 80 Myocardial infarction Sister Tuberculosis Father , 80 Peripheral artery disease Heart disease Surgical History History of coronary artery bypass graft History of coronary artery stent placement History of total left knee replacement History of left inguinal hernia repair History of cholecystectomy S/P CABG (coronary artery bypass graft) S/P implantation of automatic cardioverter/defibrillator (AICD) H/O coronary angioplasty History of cardiac catheterization Social History household members: spouse Smoking Status: Former smoker how long ago did patient quit smokin alcohol intake: current alcohol intake frequency: a few times a week substance use type: does not use caffeine: Yes Type: coffee Number of servings: 6 ROS ROS ED Review of Systems ROS Unobtainable: due to mental status and other EXAM Physical Exam Const Vital Signs: 04/27/24 03:28 04/27/24 03:29 04/27/24 03:35 Temperature Temperature Source Pulse Rate 86 86 Respiratory Rate 18 18 Blood Pressure 152/86 H 152/86 H Blood Pressure Mean 108 108 Pulse Ox 94 97 94 Oxygen Delivery Method Room Air Room Air Room Air 04/27/24 03:45 04/27/24 03:48 04/27/24 03:59 Temperature 97.9 F Temperature Source Axillary Pulse Rate 67 75 79 Respiratory Rate 19 H 22 H 28 H Blood Pressure 150/83 H 145/84 H 122/66 H Blood Pressure Mean 105 104 84 Pulse Ox 97 96 98 Oxygen Delivery Method Room Air Room Air Room Air 04/27/24 04:28 Temperature Temperature Source Pulse Rate 72 Respiratory Rate 19 H Blood Pressure 140/76 H Blood Pressure Mean 97 Pulse Ox 96 Oxygen Delivery Method Room Air Positive well nourished and well developed General Appearance ED: well developed and pallor HEENT HEENT Narrative: Normocephalic atraumatic No tongue or cheek biting to suggest seizure activity No secondary findings in the posterior pharynx to suggest infection No airway edema or compromise Eyes PERRL and EOMs intact bilaterally General Eye ED: Negative for scleral icterus Neck supple Chest Wall palpation of chest normal Resp normal respiratory effort and clear to auscultation bilaterally Resp Narrative: Breath sounds are diminished throughout but overall clear to auscultation without signs of respiratory distress Cardio regular rate Rate: other Other Details: Irregularly irregular rhythm with a regular rate consistent with past medical history of chronic atrial fibrillation GI normal to inspection, nondistended, normoactive bowel sounds, non-tender, non- distended and no masses GI Narrative: No pulsatile mass noted Auscultation: normoactive bowel sounds Palpation: soft Extremity normal to inspection Neuro Neuro Narrative: Patient is obtunded. He will not speak or follow commands GCS of 10 The patient has complete right sided upper and lower extremity paralysis with right sided facial droop right sided neglect and left gaze deviation. He is completely aphasic he does not respond or answer questions and cannot provide any LOC answers. Based on the symptoms he received NIH stroke scale score of 21 Psych Psych Narrative: Patient is obtunded Skin no rashes or lesions noted Skin Narrative: Capillary refill is less than 3 seconds General Skin Exam: pallor; Negative for jaundice MDM MDM MDM Narrative Medical decision making narrative: Patient arrived to the ER slightly hypertensive but with stable vitals and was protecting his airway. Therefore I felt no need for emergent intubation/airway stabilization. There was no tongue or cheek biting to suggest seizure activity and no signs of head trauma. His physical exam is consistent with a ischemic versus hemorrhagic stroke. Based on his unilateral paralysis global aphasia altered mental status facial droop and neglect he received a CT and CTA of the head and neck. The patient is on Eliquis and he is therefore not a candidate for TNK. CT revealed no signs of acute bleed but CTA did show a proximal M1 cerebral artery occlusion consistent with a LVO. Secondary to this [facility] neurology was contacted once again and [facility] neurology was contacted. Based on his symptoms and LVO status they agree that his only method of treatment at this time is transfer for potential thrombectomy. This plan of care was discussed with the patient's and family and they are agreeable to transfer. We discussed flying the patient to their facility so that he could be evaluated in a much faster timeframe however based on whether this is unable to be performed. Therefore the patient will be driven to [facility] to undergo further evaluation and potential thrombectomy. After discussing the case with the neurologist Dr. Carroll he feels that permissive hypertension up to a value of 220/110 is sufficient to try and provide blood flow to the ischemic section of the brain and does not recommend treatment unless his blood pressure crosses his level. The patient's plan of care has been discussed with family and they are agreeable to it and therefore will be transferred to [facility] for further care of his acute ischemic stroke secondary to an LVO History & Record Review Discussion w/independent historian: EMS personnel and Family Lab Data Attestation: I reviewed the patient's lab results. Labs: Laboratory Results - last 24 hr 04/27/24 03:20 WBC 6.6 RBC 4.35 L Hgb 13.7 Hct 42.1 MCV 96.8 H MCH 31.5 MCHC 32.5 RDW Std Deviation 50.4 H RDW Coeff of Theresa 14.1 Plt Count 239 MPV 10.5 Immature Gran % (Auto) 0.300 Neut % (Auto) 54.5 Lymph % (Auto) 26.3 Rapides % (Auto) 9.1 Eos % (Auto) 8.4 H Baso % (Auto) 1.4 H Absolute Neuts (auto) 3.6 Absolute Lymphs (auto) 1.73 Nucleated RBC % 0 PT 13.7 INR 1.1 APTT 33.6 Sodium 141 Potassium 3.8 Chloride 109 H Carbon Dioxide 23.0 Anion Gap 9 BUN 17 Creatinine 1.36 H Estim Creat Clear Calc 40.76 Est GFR (MDRD) Af Amer 64 Est GFR (MDRD) Non-Af 53 L BUN/Creatinine Ratio 12.5 Glucose 118 H Calcium 9.0 Radiography Diagnostic Testing: Clinical Impression(s) from Imaging Studies Brain CT 04/27/24 03:29 IMPRESSION: Ventricles are dilated out of portion to remaining CSF spaces, without definite obstructing lesion identified. This is unchanged from comparison examination. Although this may represent central volume loss, cannot exclude stable hydrocephalus. In addition, chronic normal pressure hydrocephalus can have a similar appearance, in the appropriate clinical setting. Pansinus disease. Otherwise, only age-related changes as above, to include old large right temporoparietal stroke, without evidence of acute intracranial hemorrhage in this noncontrast head CT. Electronically Signed: Festus Christianson MD at 3:55 EST , ADDENDUM: 04/27/24 0406 IMPRESSION: Ventricles are dilated out of portion to remaining CSF spaces, without definite obstructing lesion identified. This is unchanged from comparison examination. Although this may represent central volume loss, cannot exclude stable hydrocephalus. In addition, chronic normal pressure hydrocephalus can have a similar appearance, in the appropriate clinical setting. Pansinus disease. Otherwise, only age-related changes as above, to include old large right temporoparietal stroke, without evidence of acute intracranial hemorrhage in this noncontrast head CT. N.B. : The above Results were Read Back by Festus Christianson MD to Miki Woods DO, and understanding confirmed on 04/27/2024 03:59:44 (ET). Electronically Signed: Festus Christianson MD at 3:55 EST , ADDENDUM: 04/27/24 0407 IMPRESSION: undefined Head/Neck CTA 04/27/24 03:30 IMPRESSION: 1. 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 2. Chronic paranasal sinus disease. 3. No significant stenosis, thrombosis, aneurysm or dissection. Dr. Miki Woods was notified of the findings at 1:06 AM [place] time, 04/27/2024. N.B. : The above Results were Read Back by Miki Cardona MD to Miki Woods DO, and understanding confirmed on 04/27/2024 04:06:05 (ET). Electronically Signed: Miki Cardona MD at 4:08 EST , ADDENDUM: 04/27/24 0415 IMPRESSION: 1. 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 2. Chronic paranasal sinus disease. 3. No significant stenosis, thrombosis, aneurysm or dissection. Dr. Miki Woods was notified of the findings at 1:06 AM [place] time, 04/27/2024. N.B. : The above Results were Read Back by Miki Cardona MD to Miki Woods DO, and understanding confirmed on 04/27/2024 04:06:05 (ET). Electronically Signed: Miki Cardona MD at 4:08 EST , 1 view chest x-ray as interpreted by the emergency medicine physician reveals cardiomegaly without acute infiltrate pneumothorax or pleural effusion Management Discussion w/another healthcare provider: Social Science Manager and Radiologist Critical Care Time Critical Care Time: Yes Critical care time (excluding procedures): Discussing w/Patient &/or Family/Mill Crane Operator, Discussing w/Consultants, Arranging Admission or Transfer and - (Critical care time of 37 minutes) Discharge Plan Triage Chief Complaint: Stroke Alert ED Provider: Miki Woods Dx/Rx/DC Orders Clinical Impression: Acute ischemic left MCA stroke, Hypertension, Chronic atrial fibrillation, Current use of snf anticoagulation Prescriptions: No Action buspirone 5 mg tablet 5 mg PO BID PRN (Reason: anxiety) trazodone 50 mg tablet 50 mg PO 2100 PRN (Reason: insomnia) budesonide 0.5 mg/2 mL suspension for nebulization inhalation QDAY atorvastatin 40 mg tablet 40 mg PO QHS Qty: 90 4RF ipratropium-albuterol 1 PUFF inhaler 1 puff inhalation 4X/DAY PRN (Reason: COPD) dorzolamide 2 % drops 1 drp ophthalmic (eye) TID latanoprost 0.005 % drops 1 drp ophthalmic (eye) QHS aspirin 81 MG tablet,chewable 81 mg PO DAILY 30 Days Qty: 30 2RF acetaminophen 325 mg Tablet 650 mg PO Q6H PRN PRN (Reason: Pain 1-10 Or Fever >100.7) Qty: 0 0RF carvedilol 3.125 mg Tablet 3.125 mg PO BID Qty: 60 0RF Jardiance 10 mg Tablet 10 mg PO DAILY Qty: 30 0RF Rx Instructions: You take this for heart failure and diabetes. sacubitril-valsartan [Entresto] 24-26 mg Tablet 1 tab PO BID Qty: 60 0RF apixaban 5 mg tablet 5 mg PO BID Qty: 60 11RF furosemide 20 mg tablet 20 mg PO DAILY Qty: 90 4RF potassium chloride 20 mEq tablet extended release 20 meq PO DAILY Qty: 90 3RF Rx Instructions: 1 tab daily Primary Care Provider: Torin Noyola Referrals: Torin Noyola MD [Primary Care Provider] - Print Language: [place] Disposition Disposition: Acute Care Hospital Discharge Location: [facility]
--- NOTE | 2024-04-27 04:48 | ED.RN ---
ACCEPTED AT [facility] ER TO ER TRANSFER @ 042. CALLED [facility] FOR [facility]GENT TRANSPORT, THEY HAD NO CREWS AVAILABLE UNTIL 1200 THIS AFTERNOON. RECEIVED CALL FROM [facility] SAYING THEYD LIKE PT TO BE FLOWN, TRANSFER LINE CONNECTED US TO [facility]. SPOKE TO [facility] @ 0435, THEY TURNED DOWN THE FLOGHT DUE TO WEATHER BUT CHECKED FOR AN ETA FOR GROUND TRANSPORT. BOTH THE FLIGHT CREW AND MICU WERE UNAVAILABLE UNTIL 1030 THIS MORNING AT THE EARLIEST. WE KEPT THIS FLIGHT ON THE ITINERARY JUST IN CASE, BUT CALLED [facility] @ TO SEE IF THEY WOULD HAVE TRANSPORT SOONER. [facility] CALLED BACK @ 0445 TO SAY THEY HAVE NOTHING AVAILABLE, THEY MAY IF WE CALL BACK AFTER 0700. WE CALLED [facility] TO UPDATE THEM AND SEE IF THEYD PREFER US TO TRY ANYWHERE ELSE, THEY SAID THEY ARE CONTRACTED THROUGH [facility] AND TO KEEP THE TRANSPORT WITH THEM.
--- NOTE | 2024-04-27 07:24 | ED.RN ---
CANCELLED [facility] @ 0739 [facility] IS AVAILABLE MUCH SOONER @ 4469 FOR COMPUTER CONSULTANT.
--- NOTE | 2024-04-27 07:27 | ED.RN ---
per Dr. Chuck anand to change NIH to Q1 hour
== END 2024-04-27 09:16 | disposition short-term general hospital (02) ==
PROVIDERS: Emergency Provider Emergency Medicine; PCP Internal Medicine; Visit Provider Emergency Medicine
DX: I63.312 Cerebral infarction due to thrombosis of left middle cerebral artery (principal); G81.91 Hemiplegia, unspecified affecting right dominant side; I11.0 Hypertensive heart disease with heart failure; I50.22 Chronic systolic (congestive) heart failure; J44.9 Chronic obstructive pulmonary disease, unspecified; I48.20 Chronic atrial fibrillation, unspecified; R29.810 Facial weakness; R47.01 Aphasia; R29.721 NIHSS score 21; I25.10 Atherosclerotic heart disease of native coronary artery without angina pectoris; I25.2 Old myocardial infarction; E78.5 Hyperlipidemia, unspecified; Z95.1 Presence of aortocoronary bypass graft; Z95.5 Presence of coronary angioplasty implant and graft; Z79.01 Long term (current) use of anticoagulants; Z79.82 Long term (current) use of aspirin; Z79.899 Other long term (current) drug therapy; Z86.73 Personal history of transient ischemic attack (TIA), and cerebral infarction without residual deficits; Z87.891 Personal history of nicotine dependence
CPT/HCPCS: 51702; 70450; 70496; 70498; 71045; 80048; 85025; 85610; 85730; 93005; 99285; Q9967

== ENCOUNTER 2024-06-23 13:05 | Emergency (ER) | payer MEDICARE, SELFPAY ==
[2024-06-23] VITALS (12 sets, daily range): BP systolic 91–153; BP diastolic 67–117; PULSE 85–100; RESP 20–30; TEMP 36.6–37.4; O2SAT 95–100; BMI 26.2
--- NOTE | 2024-06-23 13:52 | CT_ITS ---
EXAM: BRAIN/HEAD WITHOUT CONTRAST CLINICAL HISTORY: Unresponsive episode. COMPARISON: Comparison is made with prior study dated April 27, 2000 24. TECHNIQUE: Multiple axial tomographic images were obtained without intravenous contrast administration. Coronal and sagittal reconstruction was obtained as well. FINDINGS: Moderate degree of cerebral atrophy. Stable encephalomalacia involving the right temporal parietal lobes. Since prior study, there is evidence of new encephalomalacia involving the left temporal parietal lobe as well as the left basal ganglion. This has progressed as compared to prior study. No acute hemorrhage or infarction is seen. Mild degree of ventricular dilatation out of proportion to the cerebral atrophy. Normal pressure hydrocephalus should be ruled out. Cerebellar atrophy. Pansinusitis. CT/Brain/Head without Contrast IMPRESSION: Element of normal pressure hydrocephalus is suspected. Since prior study, there is evidence of encephalomalacia involving the left tem poral parietal lobes as well as the left basal ganglion. No acute infarct is seen. Pansinusitis. Reading Location: [id number]
--- NOTE | 2024-06-23 13:53 | EKG12_ITS ---
Test Reason : ALT LOC Blood Pressure : */* mmHG Vent. Rate : 96 BPM Atrial Rate : 96 BPM P-R Int : 130 ms QRS Dur : 148 ms QT Int : 410 ms P-R-T Axes : 44 -74 66 degrees QTcB Int : 517 ms Sinus rhythm with Premature supraventricular complexes Left axis deviation Right bundle branch block Septal infarct (cited on or before 27-Apr-2024) Abnormal ECG Confirmed by ZA FOX ([id number]), medical transcription editor MOSHE YUAN ([id number]) on 06/27/2024 7:09:11 AM Referred By: Christine Wilson Confirmed By: ZA FOX
[2024-06-23 14:22] LABS: Absolute Lymphocyte Count 0.67 X10^3/uL (0.83-4.51); Absolute Neutrophil Count 5.2 X10^3/uL (2.0-7.7); Basophil# 0.02 X10^3/uL; Basophil% 0.3 % (0-1); Eosinophil# 0.13 X10^3/uL; Eosinophils% 1.9 % (0-5); Hemoglobin 11.3 g/dL (13.0-16.5); Lymphocyte # 0.67 X10^3/ul (0.83-4.51); Lymphocyte % 9.9 % (19-41); Mean Corp Hgb Conc 32.3 g/dL (32-36); Mean Corpuscular Hgb 30.3 pg (27.0-32.0); Mean Corpuscular Volume 93.8 fL (80-94); Mean Platelet Vol. 10.6 fl (6.2-12.0); Monocyte# 0.69 X10^3/uL; Monocyte% 10.2 % (0-10); NRBC Flagged by Analyzer 0 % (0-5); Neutrophil # 5.23 X10^3/uL (2.7-7.7); Neutrophil % 77.4 % (47-70); Platelet Count 233 K/mm3 (150-450); RBC Distribution Width SD 47.4 fl (35.1-43.9); Red Blood Count 3.73 M/mm3 (4.6-6.2); White Blood Count 6.8 K/mm3 (4.4-11.0)
[2024-06-23 14:25] LABS: ALB/GLOB Ratio 0.9 RATIO (0.9-2.4); AST(SGOT) 16 U/L (15-37); Alanine Aminotransfer ALT/SGPT 13 U/L (16-61); Albumin, Serum 3.2 g/dL (3.2-5.0); Alkaline Phosphatase 86 U/L (45-117); Anion Gap 8 (5-15); BUN 19 mg/dL (7-18); Chloride 107 mmol/L (98-107); Creatinine, Serum 1.19 mg/dL (0.70-1.30); EST Glomerular Filtration Rate 61 mL/min (>60); Est Glom Filt Rate - Afr Amer 74 mL/min (>60); Estimated Creatinine Clearance 46.58 ml/min; Globulin 3.5 g/dL (2.2-4.2); Glucose 113 mg/dL (74-106); Potassium 3.7 mmol/L (3.5-5.1); Protein, Total 6.7 g/dL (6.4-8.2); Sodium Level 140 mmol/L (136-145)
[2024-06-23 14:26] LABS: Lactic Acid 1.4 mmol/L (0.4-1.9)
--- NOTE | 2024-06-23 14:30 | RAD_ITS ---
PROCEDURE: CHEST 1 VIEW (PORTABLE) REASON FOR EXAM: Altered mental status. TECHNIQUE: Frontal view of the chest. COMPARISON: Comparison is made with prior study dated April 27, 2024. FINDINGS: EKG electrodes are seen. Residual pleural-parenchymal changes at the left lung base although this has improved as compared to prior study. Findings suggestive of mild degree of vascular congestion and CHF. A left-sided ICD is seen. Prior midline sternotomy. Cardiomegaly. Atherosclerotic calcification of the aortic arch. RAD/Chest 1 View (Portable) IMPRESSION: Residual pleural-parenchymal changes at the left lung base with the CHF. Cardiomegaly. Reading Location: [facility]
--- NOTE | 2024-06-23 15:04 | EDS_ITS ---
HPI History of Present Illness Chief Complaint: Alt LOC Informant: parent Narrative Narrative: Patient is an 88-year-old male with history of MCA stroke with residual right hemiparesis as well as severe expressive aphasia, GERD, coronary artery disease, hypertension, systolic heart failure presenting from [facility] for decreased responsiveness. Patient has had a cough for 2 weeks and his granddaughter at the bedside who is a nurse states that its become more wet. She saw him yesterday and he seemed to be fine at his baseline. He is nonverbal since his stroke but is communicative. Today he is decreased responsiveness. He does not seem to be moving his left arm no like he normally is. He is hard to arouse. He was brought in by EMS. No report of any falls. Per his MAR he is no longer on any anticoagulation. Granddaughter states that he had gone to [facility] for clot retrieval but they were only able to remove part of the clot when he had his last stroke. [facility] Medical History Glaucoma Essential (primary) hypertension Chronic HFrEF (heart failure with reduced ejection fraction) Obstructive sleep apnea Hyperlipidemia History of PTCA 1 COPD (chronic obstructive pulmonary disease) Chronic anticoagulation Chronic cough COPD (chronic obstructive pulmonary disease) Myocardial infarct Depression Rheumatoid arthritis BiPAP (biphasic positive airway pressure) dependence Sleep apnea Pacemaker Congestive heart failure (CHF) Atherosclerotic heart disease of [place] coronary artery without angina pectoris Atrial fibrillation CVA (cerebral vascular accident) Home Medications ?Medication ?Instructions ?Recorded ?Last Taken ?Type dorzolamide 2 % eye drops 1 drp ophthalmic (eye) TID G LAUCOMA 03/25/23 06/23/24 History latanoprost 0.005 % eye drops 1 drp ophthalmic (eye) Q HS 03/25/23 06/22/24 History GLAUCOOMA aspirin 81 mg chewable tablet 81 mg PO DAILY HEART HEA LTH 30 03/26/23 06/23/24 Rx days #30 tabs furosemide 20 mg tablet 20 mg PO DAILY EDEMA #90 tab s 07/07/23 06/22/24 Rx empagliflozin 10 mg tablet 10 mg PO DAILY DM #30 tabs 02/27/24 06/22/24 Rx (Jardiance) atorvastatin 40 mg tablet 40 mg PO QHS #90 tabs 06/22/24 Rx acetaminophen 325 mg tablet 650 mg PO Q6H PRN Pain 1-1 0 Or 06/23/24 Unknown History Fever >100.7 acetaminophen 650 mg rectal 650 mg RI Q4H PRN pain Unknown History suppository albuterol sulfate 2.5 mg/3 mL 2.5 mg inhalation Q6H RI N 06/23/24 06/23/24 History (0.083 %) solution for nebulization shortness of breat h or wheezing aluminum-magnesium hydroxide 200 30 ml PO Q4H PRN GI b leeding 06/23/24 Unknown History mg-200 mg/5 mL oral suspension prophylaxis bisacodyl 10 mg rectal suppository 10 mg RI DAILY PRN constipation 06/23/24 Unknown History carvedilol 6.25 mg tablet 6.25 mg PO BID 06/23/2406/04 History cetirizine 10 mg tablet (All Day 10 mg PO DAILY PRN al lergy symptoms 06/23/24 06/22/24 History Allergy (cetirizine)) cholecalciferol (vitamin D3) 1,250 1,250 mcg PO QWEEK 06/23/24 06/19/24 History mcg (50,000 unit) tablet (Dialyvite Vitamin D3 Max) dextrose 40 % oral gel (Gluco 10 g PO PRN 06/23/24 Unk nown History Burst) doxazosin 2 mg tablet (Cardura) 2 mg PO QHS 06/23/24 0 06/22/24 History guaifenesin 400 mg tablet (Chest 400 mg PO TID 5 06/21/24 History Congestion Relief) losartan 50 mg tablet (Cozaar) 50 mg PO DAILY 06/23/24 06/22/24 History magnesium hydroxide 400 mg/5 mL 30 ml PO DAILY PRN con stipation 06/23/24 Unknown History oral suspension (Dulcolax (magnesium hydroxide)) sodium phosphates 19 gram-7 118 ml RI DAILY PRN consti pation 06/23/24 Unknown History gram/118 mL enema (Enema) Allergy/AdvReac Type Severity Reaction Status Date / Time Penicillins (PCN) Allergy Rash Verified 06/23/24 13:13 Sulfa (Sulfonamide Allergy Rash Verified 06/23/24 13:13 Antibiotics) Family History Mother , 80 Myocardial infarction Sister Tuberculosis Father , 80 Peripheral artery disease Heart disease Surgical History History of coronary artery bypass graft History of coronary artery stent placement History of total left knee replacement History of left inguinal hernia repair History of cholecystectomy S/P CABG (coronary artery bypass graft) S/P implantation of automatic cardioverter/defibrillator (AICD) H/O coronary angioplasty History of cardiac catheterization Social History household members: spouse Smoking Status: Former smoker how long ago did patient quit smokin alcohol intake: current alcohol intake frequency: a few times a week substance use type: does not use caffeine: Yes Type: coffee Number of servings: 6 ROS ROS ED Review of Systems ROS Unobtainable: due to mental status EXAM Physical Exam Const Vital Signs: 06/23/24 13:06 06/23/24 13:13 06/23/24 14:11 Temperature 98.7 F 97.8 F Temperature Source Axillary Axillary Pulse Rate 96 85 Respiratory Rate 20 H 27 H Respiratory Effort Normal Non-Labored Respiratory Pattern Normal Blood Pressure 150/111 H 100/67 Blood Pressure Mean 124 78 Pulse Ox 96 98 Oxygen Delivery Method Room Air Room Air 06/23/24 15:00 06/23/24 16:00 Temperature 98 F 97.9 F Temperature Source Axillary Axillary Pulse Rate 100 87 Respiratory Rate 24 H 22 H Respiratory Effort Respiratory Pattern Blood Pressure 112/67 106/82 H Blood Pressure Mean 82 90 Pulse Ox 96 97 Oxygen Delivery Method Room Air Room Air Positive well nourished Constitutional Narrative: Chronically ill-appearing HEENT Reports dry mucous membranes Mouth ED: Yes dry mucous membranes Mouth: dry mucous membranes Eyes PERRL Neck supple and no JVD Chest Wall inspection of chest normal and palpation of chest normal
--- NOTE | 2024-06-23 15:04 | EX.ED.DYSGE1 ---
HPI History of Present Illness Chief Complaint: Alt LOC Informant: parent Narrative Narrative: Patient is an 88-year-old male with history of MCA stroke with residual right hemiparesis as well as severe expressive aphasia, GERD, coronary artery disease, hypertension, systolic heart failure presenting from [facility] for decreased responsiveness. Patient has had a cough for 2 weeks and his granddaughter at the bedside who is a nurse states that its become more wet. She saw him yesterday and he seemed to be fine at his baseline. He is nonverbal since his stroke but is communicative. Today he is decreased responsiveness. He does not seem to be moving his left arm no like he normally is. He is hard to arouse. He was brought in by EMS. No report of any falls. Per his MAR he is no longer on any anticoagulation. Granddaughter states that he had gone to [facility] for clot retrieval but they were only able to remove part of the clot when he had his last stroke. [facility] Medical History Glaucoma Essential (primary) hypertension Chronic HFrEF (heart failure with reduced ejection fraction) Obstructive sleep apnea Hyperlipidemia History of PTCA 1 COPD (chronic obstructive pulmonary disease) Chronic anticoagulation Chronic cough COPD (chronic obstructive pulmonary disease) Myocardial infarct Depression Rheumatoid arthritis BiPAP (biphasic positive airway pressure) dependence Sleep apnea Pacemaker Congestive heart failure (CHF) Atherosclerotic heart disease of [place] coronary artery without angina pectoris Atrial fibrillation CVA (cerebral vascular accident) Home Medications ?Medication ?Instructions ?Recorded ?Last Taken ?Type dorzolamide 2 % eye drops 1 drp ophthalmic (eye) TID GLAUCOMA 03/25/23 06/23/24 History latanoprost 0.005 % eye drops 1 drp ophthalmic (eye) QHS 03/25/23 06/22/24 History GLAUCOOMA aspirin 81 mg chewable tablet 81 mg PO DAILY HEART HEALTH 30 03/26/23 06/23/24 Rx days #30 tabs furosemide 20 mg tablet 20 mg PO DAILY EDEMA #90 tabs 07/07/23 06/22/24 Rx empagliflozin 10 mg tablet 10 mg PO DAILY DM #30 tabs 02/27/24 06/22/24 Rx (Jardiance) atorvastatin 40 mg tablet 40 mg PO QHS #90 tabs 04/14/24 06/22/24 Rx acetaminophen 325 mg tablet 650 mg PO Q6H PRN Pain 1-10 Or 06/23/24 Unknown History Fever >100.7 acetaminophen 650 mg rectal 650 mg OK Q4H PRN pain 06/23/24 Unknown History suppository albuterol sulfate 2.5 mg/3 mL 2.5 mg inhalation Q6H PRN 06/23/24 06/23/24 History (0.083 %) solution for nebulization shortness of breath or wheezing aluminum-magnesium hydroxide 200 30 ml PO Q4H PRN GI bleeding 06/23/24 Unknown History mg-200 mg/5 mL oral suspension prophylaxis bisacodyl 10 mg rectal suppository 10 mg OK DAILY PRN constipation 06/23/24 Unknown History carvedilol 6.25 mg tablet 6.25 mg PO BID 06/23/24 06/22/24 History cetirizine 10 mg tablet (All Day 10 mg PO DAILY PRN allergy symptoms 06/23/24 06/22/24 History Allergy (cetirizine)) cholecalciferol (vitamin D3) 1,250 1,250 mcg PO QWEEK 06/23/24 06/19/24 History mcg (50,000 unit) tablet (Dialyvite Vitamin D3 Max) dextrose 40 % oral gel (Gluco 10 g PO PRN 06/23/24 Unknown History Burst) doxazosin 2 mg tablet (Cardura) 2 mg PO QHS 06/23/24 06/22/24 History guaifenesin 400 mg tablet (Chest 400 mg PO TID 06/23/24 06/21/24 History Congestion Relief) losartan 50 mg tablet (Cozaar) 50 mg PO DAILY 06/23/24 06/22/24 History magnesium hydroxide 400 mg/5 mL 30 ml PO DAILY PRN constipation 06/23/24 Unknown History oral suspension (Dulcolax (magnesium hydroxide)) sodium phosphates 19 gram-7 118 ml OK DAILY PRN constipation 06/23/24 Unknown History gram/118 mL enema (Enema) Allergy/AdvReac Type Severity Reaction Status Date / Time Penicillins (PCN) Allergy Rash Verified 06/23/24 13:13 Sulfa (Sulfonamide Allergy Rash Verified 06/23/24 13:13 Antibiotics) Family History Mother , 80 Myocardial infarction Sister Tuberculosis Father , 80 Peripheral artery disease Heart disease Surgical History History of coronary artery bypass graft History of coronary artery stent placement History of total left knee replacement History of left inguinal hernia repair History of cholecystectomy S/P CABG (coronary artery bypass graft) S/P implantation of automatic cardioverter/defibrillator (AICD) H/O coronary angioplasty History of cardiac catheterization Social History household members: spouse Smoking Status: Former smoker how long ago did patient quit smokin alcohol intake: current alcohol intake frequency: a few times a week substance use type: does not use caffeine: Yes Type: coffee Number of servings: 6 ROS ROS ED Review of Systems ROS Unobtainable: due to mental status EXAM Physical Exam Const Vital Signs: 06/23/24 13:06 06/23/24 13:13 06/23/24 14:11 Temperature 98.7 F 97.8 F Temperature Source Axillary Axillary Pulse Rate 96 85 Respiratory Rate 20 H 27 H Respiratory Effort Normal Non-Labored Respiratory Pattern Normal Blood Pressure 150/111 H 100/67 Blood Pressure Mean 124 78 Pulse Ox 96 98 Oxygen Delivery Method Room Air Room Air 06/23/24 15:00 06/23/24 16:00 Temperature 98 F 97.9 F Temperature Source Axillary Axillary Pulse Rate 100 87 Respiratory Rate 24 H 22 H Respiratory Effort Respiratory Pattern Blood Pressure 112/67 106/82 H Blood Pressure Mean 82 90 Pulse Ox 96 97 Oxygen Delivery Method Room Air Room Air Positive well nourished Constitutional Narrative: Chronically ill-appearing HEENT Reports dry mucous membranes Mouth ED: Yes dry mucous membranes Mouth: dry mucous membranes Eyes PERRL Neck supple and no JVD Chest Wall inspection of chest normal and palpation of chest normal Resp Resp Narrative: Tachypneic. Rattles throughout. Very coarse breath sounds. Cardio regular rate and regular rhythm GI normal to inspection, nondistended, normoactive bowel sounds, non-tender and non-distended Extremity normal to inspection General Extremety ED: Negative for edema General Extremity: Negative for edema Neuro Neuro Narrative: Patient somnolent. Only wakes up to painful stimuli. No facial droop appreciated. Spontaneous movement of the lower extremities. Has decreased movement of the left arm. Not follow commands for drift. Does have tone to the lower extremities. Does retract the left arm to pain. No verbal speech. Does not follow commands. Skin no rashes or lesions noted and no wounds MDM MDM MDM Narrative Medical decision making narrative: Patient is evaluated for altered mental status, increased weakness and decreased arousability starting this morning. Last seen acting normally around 4:30 PM yesterday. It is not clear what happened after the family went to bed. He has extensive history of stroke with deficits from that. He does have atrial fibrillation does not appear to be on any anticoagulation. Differential includes stroke (patient would not be a TNK candidate his last known well was yesterday), metabolic encephalopathy, infection, sepsis. In addition he has had a worsening wet cough. Clinically does not appear fluid overloaded. Differential for this does include pneumonia and respiratory infection as well as pleural effusions. CT of the brain shows elements of normal pressure hydrocephalus and evolving encephalomalacia of the left temporal parietal lobes as well as left basal ganglia. No acute infarct is seen. CT of the brain reviewed by myself as well as radiology Does not show any acute process with chronic changes consistent with CHF/cardiomegaly. BNP is added on which is elevated but at his baseline. CTA of the brain is added on given that he does have a history of LVO however this does not show any acute clot. Case is discussed with teleneurology from [facility], Dr. Brown as his workup does not show an obvious infectious etiology to be causing his encephalopathy or mental status change and concern for possible recurrent stroke. Dr. Brown also expressed a concern that he could be having seizure-like activity. Does recommend transfer for continuous EEG and possible neurosurgery evaluation given this normal pressure hydrocephalus finding. This was discussed with the patient's and grandchildren. At this time his states that they would not want him to go through further procedures and do not want him to be transferred. They would prefer that he would be evaluated by hospice and potentially go to inpatient hospice [facility]. They do not feel comfortable going back to [facility] given that he has had falls on their watch. Unfortunately he requires too high of a level of care for him to go home on home hospice [facility]. They do understand that this means that if his breathing or heart were to stop there would be no intervention and we would allow for him to naturally/peacefully. They do understand that we would not find an answer at this time for his encephalopathy and would not do further testing including MRI or EEG. Patient is currently hemodynamically stable on room air. He continues to be somnolent. Blood pressure on the low end of normal. I did obtain a VBG which was largely normal. Patient signed out to oncoming physician pending final disposition?anticipate admission for inpatient care versus transfer to inpatient hospice facility. Lab Data Attestation: I reviewed the patient's lab results. Labs: Laboratory Results - last 24 hr 06/23/24 06/23/24 13:12 15:00 WBC 6.8 RBC 3.73 L Hgb 11.3 L Hct 35.0 L MCV 93.8 MCH 30.3 MCHC 32.3 RDW Std Deviation 47.4 H RDW Coeff of Theresa 14.0 Plt Count 233 MPV 10.6 Immature Gran % (Auto) 0.300 Neut % (Auto) 77.4 H Lymph % (Auto) 9.9 L Donley % (Auto) 10.2 H Eos % (Auto) 1.9 Baso % (Auto) 0.3 Absolute Neuts (auto) 5.2 Absolute Lymphs (auto) 0.67 L Nucleated RBC % 0 Sodium 140 Potassium 3.7 Chloride 107 Carbon Dioxide 25.0 Anion Gap 8 BUN 19 H Creatinine 1.19 Estim Creat Clear Calc 46.58 Est GFR (MDRD) Af Amer 74 Est GFR (MDRD) Non-Af 61 BUN/Creatinine Ratio 16.0 Glucose 113 H Lactic Acid 1.4 Calcium 9.0 Total Bilirubin 2.50 H AST 16 ALT 13 L Alkaline Phosphatase 86 B-Natriuretic Peptide 268.0 H Total Protein 6.7 Albumin 3.2 Globulin 3.5 Albumin/Globulin Ratio 0.9 Urine Color Yellow Urine Clarity Clear Urine pH 5.0 Ur Specific [place] 1.025 Urine Protein 30 H Urine Glucose (UA) 1000 H Urine Ketones 5 H Urine Occult Blood 10 H Urine Nitrite Negative Urine Bilirubin Negative Urine Urobilinogen Normal Ur Leukocyte Esterase Negative ABG Data ABG results: ABG 06/23/24 15:43 Specimen Type VIV Sample Site Not entered VBG pH 7.40 VBG pO2 47 H VBG HCO3 24 VBG Total CO2 25 VBG O2 Sat (Calc) 83 H VBG Base Excess -1 POC Mix VBG pCO2 Pt Tmp 37.7 L O2 Delivery Device Room Air Radiography Diagnostic Testing: Clinical Impression(s) from Imaging Studies Brain CT 06/23/24 13:52 IMPRESSION: Element of normal pressure hydrocephalus is suspected. Since prior study, there is evidence of encephalomalacia involving the left temporal parietal lobes as well as the left basal ganglion. No acute infarct is seen. Pansinusitis. Reading Location: [id number] Chest X-Ray 06/23/24 14:30 IMPRESSION: Residual pleural-parenchymal changes at the left lung base with the CHF. Cardiomegaly. Reading Location: [id number] Head/Neck CTA 06/23/24 15:27 IMPRESSION: RIGHT CAROTID: 70% narrowing at the origin of the right internal carotid artery. LEFT CAROTID: 50% narrowing of the left internal carotid artery. VERTEBRALS: Small right renal artery. INTRACRANIAL: Unremarkable One or more dose reduction techniques were used (e.g., Automated exposure control, adjustment of the mA and/or kV according to patient size, use of iterative reconstruction technique). Reading Location: [facility] Rhythm Strip Rhythm Strip: A-fib Rate: 96 Ectopy: PVC(s) EKG Initial EKG: Attestation: I personally reviewed and interpreted this EKG as follows: Interpretation: Atrial Fibrillation Comments: Atrial fibrillation at a rate of 96 bpm with frequent PVCs Slightly prolonged QTc at 517 Left axis deviation Right bundle branch block Normal ST segments Management Discussion w/another healthcare provider: Mail Distribution Scheme Examiner (Neurology-Dr. Brown) and Other (Hospice) Discharge Plan Triage Chief Complaint: Alt LOC ED Provider: Christine Wilson Dx/Rx/DC Orders Clinical Impression: Encephalopathy acute, Chronic atrial fibrillation, Left arm weakness, History of ischemic left MCA stroke Prescriptions: No Action atorvastatin 40 mg tablet 40 mg PO QHS Qty: 90 4RF dorzolamide 2 % drops 1 drp ophthalmic (eye) TID latanoprost 0.005 % drops 1 drp ophthalmic (eye) QHS Rx Instructions: 1 DROP IN BOTH EYES AT BEDTIME aspirin 81 MG tablet,chewable 81 mg PO DAILY 30 Days Qty: 30 2RF cholecalciferol (vitamin D3) [Dialyvite Vitamin D3 Max] 1,250 mcg (50,000 unit) tablet 1,250 mcg PO QWEEK Rx Instructions: TAKE EVERY WEEK ON THURSDAY doxazosin [Cardura] 2 mg tablet 2 mg PO QHS losartan [Cozaar] 50 mg tablet 50 mg PO DAILY cetirizine [All Day Allergy (cetirizine)] 10 mg tablet 10 mg PO DAILY PRN (Reason: allergy symptoms) carvedilol 6.25 mg tablet 6.25 mg PO BID guaifenesin [Chest Congestion Relief] 400 mg tablet 400 mg PO TID acetaminophen 650 mg suppository 650 mg OK Q4H PRN (Reason: pain) albuterol sulfate 2.5 mg /3 mL (0.083 %) solution for nebulization 2.5 mg inhalation Q6H PRN (Reason: shortness of breath or wheezing) aluminum-magnesium hydroxide 200-200 mg/5 mL suspension 30 ml PO Q4H PRN (Reason: GI bleeding prophylaxis) bisacodyl 10 mg suppository 10 mg OK DAILY PRN (Reason: constipation) Enema 19-7 gram/118 mL enema 118 ml OK DAILY PRN (Reason: constipation) Rx Instructions: USE IF DULCOLAX INEFFECTIVE dextrose [Gluco Burst] 40 % gel 10 g PO PRN Rx Instructions: until symptoms of low blood sugar are controlled magnesium hydroxide [Dulcolax (magnesium hydroxide)] 400 mg/5 mL suspension 30 ml PO DAILY PRN (Reason: constipation) acetaminophen 325 mg Tablet 650 mg PO Q6H PRN (Reason: Pain 1-10 Or Fever >100.7) Jardiance 10 mg Tablet 10 mg PO DAILY Qty: 30 0RF Rx Instructions: You take this for heart failure and diabetes. furosemide 20 mg tablet 20 mg PO DAILY Qty: 90 4RF Primary Care Provider: Torin Noyola Referrals: Torin Noyola MD [Primary Care Provider] - Print Language: [place]ian NIHSS NIHSS 1a. Level of Consciousness: Not alert; Arouse to repeat stimuli or strong/pain stimuli if obtunded 1b. LOC Questions: Answers neither question correctly. 1c. LOC Commands: Performs neither task correctly. 2. Best Gaze: Normal 3. Visual: No visual loss 4. Facial Palsy: Normal symmetrical movements 5a. Left Arm: No effort against gravity; arm falls 5b. Right Arm: Some effort against gravity; 6a. Left Leg: No effort against gravity; leg falls to bed immediately 6b. Right Leg: No effort against gravity; leg falls to bed immediately 7. Limb Ataxia: Absent 8. Sensory: Normal; no sensory loss 9. Best Language: Severe aphasia; 10. Dysarthria: Normal 11. Extinction and Inattention: No abnormality Total: 19 Stroke Questions Stroke Team Activated: No a.Reviewed Inclusion/Exclusion criteria: Yes (Acute ischemic stroke within the last 90 days. LKCam [id number] yesterday )
[2024-06-23 15:19] LABS: Bacteria 0 SEEN /hpf (None Seen); Squamous Epithelial Cells - UA 0 SEEN /hpf (0-5)
--- NOTE | 2024-06-23 15:27 | CT_ITS ---
PROCEDURE: CTA HEAD AND NECK W/ CONTRAST TECHNIQUE: CTA imaging of the head and neck from the aortic arch to the skull vertex with intravenous contrast. 3D reconstructions. CONTRAST: 70 cc of Isovue-300 70. COMPARISON: Comparison is made with prior examination done earlier in the day. FINDINGS: Aortic Arch: Normal size and branching pattern. Mild atherosclerotic plaque. Brachiocephalic and Subclavians: Unremarkable RIGHT Carotid: Right CCA: Unremarkable. Right ICA: Plaque formation. Maximum stenosis (NASCET): 70 % Right ECA: Unremarkable. LEFT Carotid: Left CCA: Unremarkable. Left ICA: Plaque formation Maximum stenosis (NASCET): 50 % Left ECA: Unremarkable. Vertebrals: Codominant. Arise from the subclavians. Both vertebrals form the basilar. RIGHT Vertebral: Small right vertebral artery. LEFT Vertebral: Unremarkable. No intracranial aneurysms or large vascular malformations are identified. Anterior cerebral arteries: Unremarkable. Middle cerebral arteries: Unremarkable. Basilar artery: Unremarkable. Posterior cerebral arteries: Unremarkable. Other major branches of the posterior circulation: Unremarkable. Major venous structures: Unremarkable. Other findings: No lymphadenopathy. Lung apices are clear. Bones are unremarkable. Pansinusitis. 8 mm calculus in the left submandibular gland. CT/CTA Head AND Neck W/ Contrast IMPRESSION: RIGHT CAROTID: 70% narrowing at the origin of the right internal carotid artery . LEFT CAROTID: 50% narrowing of the left internal carotid artery. VERTEBRALS: Small right renal artery. INTRACRANIAL: Unremarkable One or more dose reduction techniques were used (e.g., Automated exposure contr ol, adjustment of the mA and/or kV according to patient size, use of iterative reconstruction technique). Reading Location: [id number]
[2024-06-23 15:48] LABS: Blood Gas Specimen Type VEN; O2 Delivery Device Room Air; SITE Not entered; VBG BASE EXCESS -1 mmol/L (-1.0-3.5); VBG Bicarbonate 24 mmol/L (22-26); VBG PO2 47 mmHg (25-40); VBG SO2 83 % (50-70); VBG TCO2 25 mmol/L (23-33); VBG pCO2 37.7 mmHg (41-51)
[2024-06-23 16:27] LABS: Color, Urine Yellow (Yellow); Glucose, Dipstick 1000 mg/dl (Normal); Ketone-Dipstick 5 mg/dl (Negative); Leukocyte Esterase-Dipstick Negative /ul (Negative); Nitrite-Dipstick Negative (Negative); Occult Blood-Urine 10 /ul (Negative); Protein-Dipstick 30 mg/dl (Negative); Specific Gravity, Urine 1.025 (1.002-1.030); Urine Bilirubin Dipstick Negative (Negative); Urine Clarity Clear (Clear); Urine Urobilinogen Normal (Normal)
[2024-06-23 18:15] LABS: Mucous, Urine 1+ /hpf (<or=2+); Red Blood Cells-Urine 0 SEEN /hpf (0-5); White Blood Cells 0-5 SEEN /hpf (0-5)
--- NOTE | 2024-06-23 19:21 | ED.RN ---
Spoke with Melissa hospice worker regarding pt updates and status. Questions/concerns answered.
--- NOTE | 2024-06-23 20:56 | ED.RN ---
[facility] hosp[facility] called spoke to ED alumni secretary and requested to keep pt's IVs for transportation.
--- NOTE | 2024-06-23 21:19 | ED.RN ---
Report called to [facility] gauge operator, questions/concerns answered.
== END 2024-06-23 22:26 | disposition other institution (70) ==
PROVIDERS: Emergency Provider Emergency Medicine; PCP Internal Medicine; Referring Provider Emergency Medicine; Visit Provider Emergency Medicine
DX: G93.41 Metabolic encephalopathy (principal); I69.351 Hemiplegia and hemiparesis following cerebral infarction affecting right dominant side; I11.0 Hypertensive heart disease with heart failure; I50.22 Chronic systolic (congestive) heart failure; J44.9 Chronic obstructive pulmonary disease, unspecified; I48.20 Chronic atrial fibrillation, unspecified; I69.320 Aphasia following cerebral infarction; I25.10 Atherosclerotic heart disease of native coronary artery without angina pectoris; I25.2 Old myocardial infarction; E78.5 Hyperlipidemia, unspecified; Z95.1 Presence of aortocoronary bypass graft; Z95.5 Presence of coronary angioplasty implant and graft; Z79.82 Long term (current) use of aspirin; Z79.899 Other long term (current) drug therapy; Z87.891 Personal history of nicotine dependence
CPT/HCPCS: 70450; 70496; 70498; 71045; 80053; 81001; 82803; 83605; 83880; 85025; 87631; 93005; 99285; Q9967; A4216